=== PATIENT | male | born 1960 | race Caucasian/White ===

== ENCOUNTER 2023-03-17 09:56 | Emergency (ER) | payer OTHER, SELFPAY ==
--- NOTE | ~2023-03-17 | US_ITS ---
EXAMINATION:US venous doppler LE BI INDICATION:Leg edema TECHNIQUE: Multiple grayscale, color flow and Doppler images of the lower extremity deep venous syste ms were obtained and reviewed. COMPARISON:No prior FINDINGS: The common femoral, superficial femoral and popliteal veins demonstrate normal respiratory variation, augmentation and compressibility. Color flow is also seen within the posterior tibial, pe roneal, greater saphenous and profunda veins. IMPRESSION: 1: No lower extremity deep venous thrombosis. Reviewed, dictated and finalized at location A.
[2023-03-17 10:01] VITALS: BP 148/97; PULSE 77; RESP 18; TEMP 36.4; O2SAT 93
--- NOTE | 2023-03-17 10:19 | ED.SKABFB ---
HPI - Skin/Abscess/Foreign Bdy General Chief complaint: Skin/Abscess/Foreign Body Stated complaint: skin infection Time Seen by Provider: 03/17/23 09:59 Source: patient Mode of arrival: ambulatory Limitations: no limitations History of Present Illness HPI narrative: This is a 62 year old male that presents to the ER for lower extremity edema. Ongoing over the last couple of weeks. Reports he has been taking his as needed Lasix and this has been helping with the swelling, but he has a wound with surrounding redness on the right leg which is not improving. Denies fever, chest pain or shortness of breath. Related Data Allergies Allergy/AdvReac Type Severity Reaction Status Date / Time lidocaine Allergy Anaphylaxis Verified 03/17/23 10:11 amoxicillin AdvReac Diarrhea Verified 03/17/23 09:57 Review of Systems Review of Systems: CONSTITUTIONAL: Denies fever CARDIOVASCULAR: Reports edema. Denies chest pain RESPIRATORY: Denies dyspnea. SKIN: Reports redness All systems reviewed & are unremarkable except as noted in HPI and below PMFSH Past Medical History Medical History (Updated 03/17/23 @ 13:40 by Deann Crowley PA-C) History of atrial fibrillation History of COPD History of diabetes mellitus History of gastroesophageal reflux (GERD) Social History Social History (Updated 03/17/23 @ 10:23 by Deann Crowley PA-C) Smoking status: Never smoker Exam Narrative: GENERAL: Well-appearing, well-nourished, and in no acute distress. HEAD: Normocephalic, atraumatic. EYES: EOMI. CHEST: Clear to auscultation. No respiratory distress. No wheezes rales or rhonchi HEART: Regular rate and rhythm. No murmur heard. Normal peripheral pulses. EXTREMITIES: Normal range of motion. 1+ pitting edema to the bilateral lower extremities. Normal DP pulses. Small scab to the right lower extremity with mild surrounding redness SKIN: Warm, dry, no rash. NEURO: No focal deficits. Alert and oriented x3. PSYCH: Normal mood and affect Course Course Emergency Course: Patient was updated on work-up and agrees with plan of care Vital Signs Vital signs: Vital Signs Temperature 97.6 F 03/17/23 10:01 Pulse Rate 77 03/17/23 10:01 Respiratory Rate 18 03/17/23 10:01 Blood Pressure 148/97 H 03/17/23 10:01 Pulse Oximetry 93 03/17/23 10:01 Oxygen Delivery Room Air 03/17/23 10:01 Temperature 97.6 F 03/17/23 10:01 Pulse Rate 77 03/17/23 12:17 Respiratory Rate 18 03/17/23 12:17 Blood Pressure 127/90 03/17/23 12:17 Pulse Oximetry 97 03/17/23 12:17 Oxygen Delivery Nasal Cannula 03/17/23 10:39 Oxygen Flow Rate 4 03/17/23 10:39 MDM - Skin/Abscess/Foreign Bdy MDM Narrative Medical decision making narrative: Patient presents to the emergency department for lower extremity edema. Ongoing over the last couple of weeks. Reports he has been taking his as needed Lasix with improvement in swelling. Additionally he has an area of redness surrounding a wound to the right lower extremity. This has not improved. He is afebrile and nontoxic-appearing. CBC is without leukocytosis. Inflammatory markers are not elevated. Bilateral lower extremity venous Doppler without evidence of DVT. Patient chronically wears 4 L via nasal cannula, he denies any current shortness of breath. Patient will be started on oral antibiotics for mild cellulitis of the right lower extremity. He is to follow-up with primary provider. He was given warnings to return to the ER Differential Diagnosis Differential diagnosis: Likely abscess of skin or subcutaneous tissue and cellulitis Lab Data Attestation: I reviewed the patient's lab results. 03/17/23 10:32 03/17/23 10:32 Labs: Lab Results 03/17/23 03/17/23 Range/Units 10:32 13:32 WBC 5.6 (4.5-10.0) K/mm3 RBC 4.90 (4.6-6.20) M/mm3 Hgb 15.2 (14.0-18.0) g/dL Hct 49.2 (42.0-52.0) % MCV 100.4 H (80-100) fl MCH 31.0 (26
[2023-03-17 10:39] VITALS: O2SAT 98
[2023-03-17 10:40] LABS: Basophils Percent Auto 0.2 % (0.2-1.2); Eosinophils Absolute Auto 0.1 K/mm3 (0-0.3); Eosinophils Percent Auto 2.5 % (0-4.4); Hematocrit 49.2 % (42.0-52.0); Hemoglobin 15.2 g/dL (14.0-18.0); Immature Granulocyte Absolute 0.01 K/mm3 (0.00-0.031); Immature Granulocyte Percent A 0.2 % (0-0.5); Immature Platelet Fraction Pct 10.3 % (0.9-11.2); Lymphocytes Absolute Auto 1.76 K/mm3 (0.9-3.2); Lymphocytes Percent Auto 31.3 % (18.3-44.2); Mean Corpuscular HGB Conc 30.9 g/dl (32-36); Mean Corpuscular Volume 100.4 fl (80-100); Mean Platelet Volume 11.3 fl (7.4-10.4); Monocytes Absolute Auto 0.6 K/mm3 (0.1-0.6); Neutrophils Absolute Auto 3.1 K/mm3 (1.3-6.7); Neutrophils Percent Auto 54.8 % (45.5-73.1); Platelet Count Result 120 k/mm3 (150-375); Red Cell Distribution Width 13.6 % (11.5-14.5); White Blood Count 5.6 K/mm3 (4.5-10.0)
[2023-03-17 10:50] LABS: Anion Gap 4 mmol/L (8-16); Blood Urea Nitrogen 22 mg/dL (9-20); CRP 0.5 mg/dL (<1.0); Calcium 8.7 mg/dL (8.4-10.2); Carbon Dioxide 34 mmol/L (22-30); Chloride 104 mmol/L (98-107); Estimated CRCL calculation 175 ml/min; Estimated Glomerular Filt Rate > 60; Glucose 107 mg/dL (65-110); Sodium 142 mmol/L (137-145)
[2023-03-17 12:06] LABS: Erythrocyte Sedimentation Rate 7 mm/hr (0-20)
[2023-03-17 12:17] VITALS: BP 127/90; PULSE 77; RESP 18; O2SAT 97
[2023-03-17 13:34] LABS: Glucose Point of Care 106 mg/dl (65-105)
[2023-03-17 13:51] VITALS: BP 151/117; PULSE 82; RESP 18; O2SAT 98
== END 2023-03-17 13:53 | disposition home or self-care (01) ==
PROVIDERS: Emergency Provider Physician Assistant
DX: L03.115 Cellulitis of right lower limb (principal); I48.91 Unspecified atrial fibrillation; J44.9 Chronic obstructive pulmonary disease, unspecified; E11.9 Type 2 diabetes mellitus without complications; K21.9 Gastro-esophageal reflux disease without esophagitis
CPT/HCPCS: 36415; 80048; 82948; 85025; 85055; 85652; 86140; 93970; 99284

== ENCOUNTER 2023-11-12 07:46 | Outpatient (CLI) | payer MEDICARE, MEDICAID, SELFPAY ==
[2023-11-12 08:38] LABS: Alveolar/Arterial O2 Gradient 14.9 mmHg; Base Excess ABG 3.6 mEq/l (+/-2.0); Carboxyhemoglobin 1.7 % THb (0-2.0); Fractional Inspired Oxygen 21 %; HCO3 ABG 29.5 mEq/l (22.0-26.0); Methemoglobin ABG 0.3 %THb (0-1.5); Oxygen Content ABG 21.4 %vol (16.0-22.0); Oxygen Saturation ABG 95.1 % (95.0-100.0); Oxyhemoglobin 93.6 % THb (90.0-100.0); PCO2 ABG 48.9 mmHg (35.0-45.0); PO2 ABG 76.3 mmHg (80.0-100.0); PO2 FiO2 Ratio Arterial Blood 3.63 %; Reduced Hemoglobin 4.4 %THb (0-5.0); Total Hemoglobin 16.3 g/dL (12.0-18.0); pH ABG 7.398 (7.350-7.450)
[2023-11-12 08:42] LABS: Device ROOM AIR; Site Drawn RIGHT BRACHIAL
--- NOTE | 2023-11-12 12:44 | WPDSIXMINUTE ---
Six Minute Walk Procedure Procedure Performed Pulmonary Stress Test (6 min walk) Six Minute Walk Six Minute Walk: This 6 minute walk test was carried out with the patient breathing ambient air. The pre walk baseline oxyhemoglobin saturation was 93%. The patient walked 183 m with no stops during testing. During the walk the oxyhemoglobin saturation remained in the range of 91% to 93%. Impression: No evidence of oxyhemoglobin desaturation on this test.
--- NOTE | 2023-11-12 12:49 | P.PCNPFT_ITS ---
PFT Procedure Performed PFT Procedure Performed Spirometry with Pre/Post Bronchodilator Plethysmography (Lung Vol) Diffusing Cap (DLCO) Flow Vol Loop PFT Interpretation Lung volumes were measured using body plethysmography. The uniformly reduced lung volumes suggest restrictive respiratory disease. Spirometry revealed decreased expiratory flow rates and a normal FEV1/FVC ratio of 74%, consistent with restrictive respiratory disease. Administration of a bronchodilator did not significantly improve expiratory flow rates. The flow-volume loop likely indicates suboptimal effort, with a plateau on the expiratory limb suggesting possible upper airway obstruction. However, this expiratory plateau was not cons istently observed in all recorded flow-volume loops. Lung diffusion capacity is within normal limits at 67% of the predicted value. Impression: Moderate restrictive respiratory disease. Lung diffusion capacity is within the normal range. L
== END 2023-11-12 07:47 | disposition home or self-care (01) ==
LOC: ANHPFT 07:49
PROVIDERS: PCP Family Medicine; Visit Provider Nurse Practitioner Family
DX: J44.9 Chronic obstructive pulmonary disease, unspecified (principal); R09.02 Hypoxemia; R06.09 Other forms of dyspnea
CPT/HCPCS: 36600; 82375; 82805; 83050; 94060; 94618; 94726; 94729

== ENCOUNTER 2023-11-19 09:16 | Outpatient (CLI) | payer MEDICARE, MEDICAID, SELFPAY ==
[2023-11-19 10:43] LABS: Hemoglobin A1C 5.3 % (<5.7)
[2023-11-19 10:48] LABS: Alanine Aminotransferase 21 U/L (6-50); Albumin Level 4.2 g/dL (3.5-5.1); Alkaline Phosphatase 74 U/L (38-126); Anion Gap 4 mmol/L (4-12); Aspartate Amino Transferase 34 U/L (17-59); Bilirubin,Total 0.9 mg/dL (0.2-1.3); Blood Urea Nitrogen 32 mg/dL (9-20); Calcium 9.2 mg/dL (8.4-10.2); Carbon Dioxide 33 mmol/L (22-30); Chloride 103 mmol/L (98-107); Cholesterol 176 mg/dL (0-200); Estimated Glomerular Filt Rate > 60; Glucose 81 mg/dL (65-110); HDL Direct 36 mg/dL; Potassium 4.6 mmol/L (3.4-5.0); Sodium 140 mmol/L (137-145); Triglycerides 100 mg/dL (<150)
[2023-11-19 10:59] LABS: LDL Cholesterol Direct 128 mg/dL
== END 2023-11-19 09:17 | disposition home or self-care (01) ==
LOC: ANHLAB 09:19
PROVIDERS: PCP Family Medicine; Visit Provider Physician Assistant Medical
DX: E78.2 Mixed hyperlipidemia (principal); R73.03 Prediabetes
CPT/HCPCS: 36415; 80053; 80061; 83036

== ENCOUNTER 2023-11-20 12:08 | Outpatient (CLI) | payer MEDICARE, MEDICAID, SELFPAY ==
--- NOTE | 2023-11-20 12:23 | ECHO_ITS ---
Patient Info Name: Mann Choudhury Age: 63 years : 1960 Gender: Male Ht: 72 in Wt: 290 lbs BSA: 2.64 m2 HR: 88 bpm BP: 112 / 79 mmHg Heart Rhythm: Atrial Fibrillation Technical Quality: Fair Exam Date: 11/20/2023 12:32 PM Exam Location: Echo Lab Patient Status: Outpatient Admit Date: 11/20/2023 Staff Ordering Physician: Mario Muro APRN Pick Up Attendant: Delvin Portillo RDCS Attending Provider: Mario Muro APRN Referring Physician: Bhaskar STEPHENS; Exam Type: CA echo dop color flow w con Study Info Indications R06.09 - Other forms of dyspnea I27.2 - Other secondary pulmonary hypertension Complete two-dimensional, color flow and Doppler transthoracic echocardiogram is performed with contrast to opacify the left ventricle and to improve the deliniation of the left ventricle endocardial borders. Contrast/Agitated Saline Contrast/Ag. Saline: Definity Amount: 2.00 ml IV Access Condition: patent with no signs of infiltration Summary 1. Definity contrast administered improved wall motion interpretation. 2. Left ventricular chamber dimension is normal. 3. Left ventricular systolic function is normal, estimated at 60-65%. 4. The left ventricular diastolic function is normal. 5. Tissue doppler E/e' is not calculated. 6. Left atrial chamber dimension is mildly enlarged. 7. Right atrial chamber dimension is mildly enlarged. 8. There is mild mitral valve regurgitation. 9. There is mild tricuspid valve regurgitation. 10. No pulmonary hypertension, estimated pulmonary arterial systolic pressure is 36 mmHg. Left Ventricle Definity contrast administered improved wall motion interpretation. Tissue doppler E/e' is not calculated. Left ventricular chamber dimension is normal. Left ventricular systolic function is normal, estimated at 60-65%. The left ventricular diastolic function is normal. Right Ventricle Right ventricular chamber dimension is normal. Right ventricular systolic function is normal. Left Atria Left atrial chamber dimension is mildly enlarged. Right Atria Right atrial chamber dimension is mildly enlarged. Aortic Valve The aortic valve is trileaflet. There is no aortic valve stenosis. There is no aortic valve regurgitation. Pulmonic Valve There is no pulmonic regurgitation. Mitral Valve There is no mitral valve stenosis. There is mild mitral valve regurgitation. Tricuspid Valve There is mild tricuspid valve regurgitation. No pulmonary hypertension, estimated pulmonary arterial systolic pressure is 36 mmHg. Pericardium/Pleural There is no pericardial effusion. Inferior Vena Cava Normal inferior vena cava with >50% collapse upon inspiration consistent with normal right atrial pressure, 5 mmHg. Aorta The aortic root size at the sinus of Valsalva is normal. Left Ventricular Outflow Tract Name Value Normal LVOT 2D LVOT Diameter 2.02 cm LVOT Doppler LVOT Peak Gradient 3 mmHg LVOT Mean Gradient 1 mmHg LVOT VTI 14.45 cm LVOT VTI/AV VTI Ratio 0.87 LVOT Stroke Volume 46.46 ml LV
[2023-11-20] MEDS: PERFLUTREN LIPID MICROSPHERES 1.5 ML VIAL DILUTED TO 10 ML TOTAL VOLUME IV PUSH (13:35)
--- NOTE | 2023-11-20 13:56 | IVDEFINITY ---
Prior to administration of IV Definity the patient was educated on the risks and benefits of the imaging enhancing agent including potential adverse side effects. The patient verbalized understanding. Allergies were verified. No exclusion criteria were identified and at least one of the following inclusion criteria were met: 1) physician request, 2) patient technically difficult to image (per the [place] [employer] Echocardi[employer] guidelines of two or more segments not discernable within the apical view), or 3) questionable left ventricular function. ?
== END 2023-11-20 12:09 | disposition home or self-care (01) ==
LOC: ANHCARD 12:10
PROVIDERS: PCP Family Medicine; Visit Provider Nurse Practitioner Family
DX: I27.29 Other secondary pulmonary hypertension (principal); R06.09 Other forms of dyspnea; I34.0 Nonrheumatic mitral (valve) insufficiency; I36.1 Nonrheumatic tricuspid (valve) insufficiency
CPT/HCPCS: C8929; Q9957

== ENCOUNTER 2023-12-17 15:26 | Outpatient (CLI) | payer MEDICARE, MEDICAID, SELFPAY ==
--- NOTE | ~2023-12-17 | CT_ITS ---
EXAMINATION: CT abdomen pelvis wo con DATE: 12/17/2023 15:50 INDICATION: Ventral hernia TECHNIQUE: Computed tomography (CT) of the abdomen and pelvis was performed without intravenous contr ast. The dose-length product was 1522.99 mGy-cm. Automated exposure control and iterative reconstruct ion technique were employed. COMPARISON: None. FINDINGS: There is bibasilar atelectasis. Heart size normal. No significant pleural or pericardial ef fusion. There are calcified granulomas of the liver and spleen. There is a 3 mm nonobstructing left r enal stone. There is a [place] ventral hernia containing nonobstructed colon. This hernia is locate d superior to the umbilicus slightly paracentral to the left. Nonobstructive bowel gas pattern. Colon ic diverticulosis without evidence for diverticulitis. No abnormal pelvic masses or fluid collections . Severe lower thoracic and lumbar spondylosis. There is grade 1 spondylolisthesis at L5-S1 secondary to spondylolysis. IMPRESSION: 1. [place] supraumbilical ventral hernia containing nonobstructed colon. 2: Nonobstructing left nephrolithiasis. Reviewed, dictated and finalized at location B.
== END 2023-12-17 15:27 | disposition home or self-care (01) ==
LOC: ANHIMG 15:29
PROVIDERS: PCP Physician Assistant Medical; Visit Provider Surgery
DX: K43.6 Other and unspecified ventral hernia with obstruction, without gangrene (principal); N20.0 Calculus of kidney
CPT/HCPCS: 74176

== ENCOUNTER 2024-01-19 10:48 | Emergency (ER) | payer MEDICARE, MEDICAID, SELFPAY ==
[2024-01-19] VITALS (21 sets, daily range): BP systolic 113–133; BP diastolic 74–104; PULSE 68; RESP 18; TEMP 36.5–37.1; O2SAT 92–98
--- NOTE | ~2024-01-19 | CT_ITS ---
EXAMINATION: CT abdomen pelvis wo con DATE: 01/19/2024 14:03 INDICATION: R flank pain; hx of stones TECHNIQUE: Computed tomography (CT) of the abdomen and pelvis was performed without intravenous contr ast. Automated exposure control and iterative reconstruction technique were employed. The dose-length product was 1542.99 mGy-cm. COMPARISON: 12/17/2023. FINDINGS: Lower thorax: Calcified right lower lobe granuloma. Coronary artery calcification. Minimal dependent atelectasis. Right hilar lymph node calcification. Minimal symmetric bilateral gynecomastia. Liver: Normal. Biliary/Gallbladder: Gallbladder is normal. No bile duct dilation. Pancreas: No mass or duct dilation. Spleen: Normal. Adrenals:Unremarkable. No suspicious mass. 7 mm left adrenal calcification. Kidneys: No suspicious mass, obstructing stone, or hydronephrosis nonobstructing 4 mm left lower pole calcification. Stable 12 mm calcification in the left lower abdomen projecting immediately adjacent to and displacing the nondistended left ureter. GI tract: No small or large bowel dilation. Appendix not confidently visualized. Diverticulosis witho ut diverticulitis. Mesentery/Peritoneum: No ascites, mass, or free air. Retroperitoneum: No mass. Atherosclerotic abdominal aortic and/or arterial calcifications. Pelvis: Incompletely distended urinary bladder with wall thickening. Soft Tissues: 10.6 cm supraumbilical hernia containing fat and a nonobstructed loop of large bowel. S mall uncomplicated appearing fat-containing umbilical hernia. Bones: No acute osseous finding. IMPRESSION: Cystitis versus bladder wall thickening from incomplete distention. Otherwise, no acute abdominopelvic process detected. Reviewed, dictated and finalized at location K.
--- NOTE | 2024-01-19 13:02 | ED.BACK ---
HPI - Back Pain/Injury General Chief Complaint: Back Pain/Injury Stated Complaint: back pain Time Seen by Provider: 01/19/24 12:47 History of Present Illness HPI Narrative: 63-year-old male with a history of hypertension, paroxysmal AFib on digoxin and Xarelto presenting with back pain. Patient states that he has a lot of chronic back pain but lately he has been having pain off to the right side. He denies any midline pain. States that he had kidney stones many years ago and became concerned that that may be because of the pain. Denies abdominal pain, nausea vomiting, diarrhea. No dysuria or hematuria. States he has been using ibuprofen with minimal relief. No fevers. No further complaints. Related Data Home Medications Medication Instructions Recorded Confirmed budesonide-formoterol HFA 160 2 puff inhalation Q12H 09/10/23 01/07/24 mcg-4.5 mcg/actuation aerosol inhaler (Breyna) carvedilol 6.25 mg tablet 6.25 mg PO BID 09/10/23 01/07/24 digoxin 250 mcg (0.25 mg) tablet 250 mcg PO DAILY 09/10/23 01/07/24 gabapentin 800 mg tablet 800 mg PO BID 09/10/23 01/07/24 ibuprofen 800 mg tablet 800 mg PO ONCE PRN 09/10/23 01/07/24 pioglitazone 45 mg tablet 45 mg PO DAILY 09/10/23 01/07/24 Allergies Allergy/AdvReac Type Severity Reaction Status Date / Time lidocaine Allergy Anaphylaxis Verified 01/07/24 15:39 amoxicillin AdvReac Diarrhea Verified 01/07/24 15:39 Review of Systems Review of Systems: All systems reviewed & are unremarkable except as noted in HPI and below PMFSH Past Medical History Medical History Allergies Anxiety Arthritis Asthma CHF (congestive heart failure) COPD (chronic obstructive pulmonary disease) Diabetes GERD (gastroesophageal reflux disease) Headache Heart attack Heart disease History of atrial fibrillation History of COPD History of diabetes mellitus History of gastroesophageal reflux (GERD) Hypertension Kidney disease Migraine Family History Family History Father Alcoholism Heart disease Hypertension Mother Heart disease Asthma Sibling Alcoholism Asthma Diabetes mellitus Hypertension Heart disease Cerebrovascular accident Thyroid disorder Grandparent Asthma Hypertension Heart disease Son Alcoholism Asthma Hypertension Social History Social History Smoking status: Never smoker Second hand tobacco smoke exposure: No Alcohol intake: never Substance use: never Substance use type: does not use Do You Feel Safe in your Home?: Yes Lack of Transportation: No Lack of Food: Never True Current Housing: Decline to Answer Concerned About Future Housing: Decline to Answer Difficulty Paying Gas/Electric Bills: No Difficulty Paying for Meds: No Currently Unemployed: No Education: High School Diploma/GED Difficulty w/ Childcare or Family Care: No Living arrangements: alone Occupation/Education: retired Sexual Orientation (if Verbalized by the Patient): Straight or Heterosexual Spiritual care concerns: No Agree to blood products: No Exam Narrative: GENERAL: Well-appearing, in no acute distress HEAD: Normocephalic, atraumatic. EYES: PERRLA and EOMI. ENT: Grossly unremarkable NECK: Supple. CHEST: Clear to auscultation. No respiratory distress. HEART: Regular rate and rhythm ABDOMEN: Soft, nontender, nondistended; + right CVA tenderness BACK: no midline tenderness EXTREMITIES: Normal range of motion SKIN: Warm, dry, no rash. NEURO: No focal deficits. Alert and oriented x3. PSYCH: Normal mood and affect. Course Vital Signs Vital signs: Vital Signs Temperature 97.7 F 01/19/24 12:06 Pulse Rate 68 01/19/24 12:06 Respiratory Rate 18 01/19/24 12:06 Blood Pressure 122/81 01/19/24 12:06 Pulse Oximetry 98 01/19/24 12:
[2024-01-19] MEDS: HYDROcodone/acetaminophen (*CRX) 5-325 MG TABLET 1 TAB PO (13:21)
[2024-01-19 13:25] LABS: Basophils Percent Auto 0.1 % (0.2-1.2); Eosinophils Absolute Auto 0.1 K/mm3 (0-0.3); Eosinophils Percent Auto 1.9 % (0-4.4); Hematocrit 47.8 % (42.0-52.0); Hemoglobin 15.7 g/dL (14.0-18.0); Immature Granulocyte Absolute 0.03 K/mm3 (0.00-0.031); Immature Granulocyte Percent A 0.4 % (0-0.5); Immature Platelet Fraction Pct 9.3 % (0.9-11.2); Lymphocytes Absolute Auto 2.29 K/mm3 (0.9-3.2); Lymphocytes Percent Auto 32.7 % (18.3-44.2); Mean Corpuscular HGB Conc 32.8 g/dl (32-36); Mean Corpuscular Hemoglobin 32.4 pg (26-34); Mean Corpuscular Volume 98.6 fl (80-100); Mean Platelet Volume 11.4 fl (7.4-10.4); Monocytes Absolute Auto 0.9 K/mm3 (0.1-0.6); Monocytes Percent Auto 12.3 % (2.6-8.5); Neutrophils Absolute Auto 3.7 K/mm3 (1.3-6.7); Neutrophils Percent Auto 52.6 % (45.5-73.1); Platelet Count Result 123 k/mm3 (150-375); Red Blood Count 4.85 M/mm3 (4.6-6.20); Red Cell Distribution Width 13.1 % (11.5-14.5)
[2024-01-19 13:35] LABS: Alanine Aminotransferase 21 U/L (6-50); Alkaline Phosphatase 75 U/L (38-126); Anion Gap 5 mmol/L (4-12); Aspartate Amino Transferase 28 U/L (17-59); Bilirubin,Total 0.9 mg/dL (0.2-1.3); Blood Urea Nitrogen 35 mg/dL (9-20); Calcium 8.9 mg/dL (8.4-10.2); Carbon Dioxide 34 mmol/L (22-30); Chloride 99 mmol/L (98-107); Estimated Glomerular Filt Rate > 60; Glucose 89 mg/dL (65-110); Lipase 39 U/L (23-300); Potassium 4.8 mmol/L (3.4-5.0); Sodium 138 mmol/L (137-145)
[2024-01-19 13:38] LABS: Add Urine Microscopic? NO; Appearance Urine Clear (Clear); Bilirubin Urine Negative (Negative); Blood Urine Negative (Negative); Color Urine Yellow (Yellow); Glucose Urine UA 2+ mg/dL (Negative); Ketones Urine Negative (Negative); Leukocyte Esterase Ur Negative LEU/UL (Negative); Nitrate Urine Negative (Negative); Protein Urine Negative (Negative); Specific Grav Ur 1.036 (1.001-1.035)
== END 2024-01-19 16:30 | disposition home or self-care (01) ==
PROVIDERS: Emergency Provider Emergency Medicine; PCP Physician Assistant Medical
DX: M54.50 Low back pain, unspecified (principal); G89.29 Other chronic pain; I48.0 Paroxysmal atrial fibrillation; I50.9 Heart failure, unspecified; I11.0 Hypertensive heart disease with heart failure; I25.2 Old myocardial infarction; J44.9 Chronic obstructive pulmonary disease, unspecified; E11.9 Type 2 diabetes mellitus without complications; K21.9 Gastro-esophageal reflux disease without esophagitis; N28.9 Disorder of kidney and ureter, unspecified; Z87.442 Personal history of urinary calculi; Z79.01 Long term (current) use of anticoagulants; Z79.84 Long term (current) use of oral hypoglycemic drugs; Z79.899 Other long term (current) drug therapy
CPT/HCPCS: 36415; 74176; 80053; 81003; 83690; 85025; 85055; 99284; A9270

== ENCOUNTER 2024-01-22 12:38 | Outpatient (CLI) | payer MEDICARE, MEDICAID, SELFPAY | END 2024-01-22 12:39 | disposition home or self-care (01) | LOC: ANHAUDIO 12:39 | PROVIDERS: PCP Family Medicine; Visit Provider Otolaryngology | DX: H90.6 Mixed conductive and sensorineural hearing loss, bilateral (principal); H93.19 Tinnitus, unspecified ear; H61.23 Impacted cerumen, bilateral; J30.2 Other seasonal allergic rhinitis | CPT/HCPCS: 92557; 92567 ==

== ENCOUNTER 2024-02-12 09:41 | Outpatient (CLI) | payer MEDICARE, MEDICAID, SELFPAY ==
--- NOTE | ~2024-02-12 | NM_ITS ---
EXAMINATION: NM ankush stress w perfusion DATE: 02/12/2024 12:13 INDICATION: Other forms of dyspnea TECHNIQUE: Rest images were obtained following intravenous administration of 9.0 mCi Tc99m tetrofosmi n (Myoview). The patient was infused intravenously with Lexiscan (Regadenoson). Then, 28.6 mCi Tc99m tetrofosmin (Myoview) was administered intravenously, and stress images were obtained. Data was recon structed into short axis and horizontal and vertical long axis SPECT images. Gated SPECT images were also obtained. COMPARISON: None. FINDINGS: There is a moderate-sized mild reversible perfusion defect on the stress imaging involving the apical, apical lateral, apical anterior, mid anterior and mid anterolateral segments consistent w ith ischemia. The activity however appears to largely normalizes on the gated stress imaging during s ystole suggesting this could be artifactual. Prone imaging however was unable to be obtained. There i s additional mild reversible decreased perfusion at the apical inferior and mid inferior segments and more prominent on the gated been the gated post stress imaging. There is normal left ventricular liliana mber size, wall motion and ejection fraction. Left ventricular ejection fraction measures >70%. IMPRESSION: 1. Mild reversible perfusion defects which would be consistent with ischemia involving portions of th e anterior and anterolateral wall on the left anterior descending coronary artery vascular distributi on and along the inferior wall in the right coronary artery vascular distribution. These appear more prominent on the ungated post stress imaging than on the gated imaging particularly during systole augustin ggesting this could be artifactual. 2. Left ventricular ejection fraction measuring >70%. Reviewed, dictated and finalized at location B. IMPRESSION: 1. Mild reversible perfusion defects which would be consistent with ischemia in volving portions of the anterior and anterolateral wall on the left anterior de scending coronary artery vascular distribution and along the inferior wall in t he right coronary artery vascular distribution. These appear more prominent on the ungated post stress imaging than on the gated imaging particularly during s ystole suggesting this could be artifactual. 2. Left ventricular ejection fraction measuring >70%.
--- NOTE | 2024-02-12 09:51 | EST_ITS ---
Patient Info Name: Mann Choudhury Age: 63 years : 1960 Gender: Male Ht: 72 in Wt: 289 lbs BSA: 2.63 m2 HR: 76 bpm BP: 107 / 80 mmHg Exam Date: 02/12/2024 10:42 AM Exam Location: Echo Lab Patient Status: Outpatient Admit Date: 02/12/2024 Staff Ordering Physician: Bry Estrada DO Attending Provider: Bry Estrada DO Exercise Technologist: Jacquie Gandhi RDCS Exercise Physician: Bry Estrada DO Exam Type: CA stress ankush w NM Study Info A regadenoson stress test was performed. Summary 1. 1. Negative lexiscan stress test for ischemic ST changes by ECG criteria. 2. 2. Stable hemodynamics throughout the test. 3. 3. Nuclear scan to follow and will be reported separately. Please correlate with it. 4. 4. Patient informed of the above results. Protocol: Lexiscan Stress ECG Details Stage: REST Duration (min): 4 min : 28 sec HR (bpm): 76 SBP (mmHg): 107 DBP (mmHg): 80 Stage: REST Duration (min): 9 min : 59 sec HR (bpm): 79 SBP (mmHg): 107 DBP (mmHg): 80 Stage: STAGE 1 Duration (min): 1 min : 0 sec HR (bpm): 77 SBP (mmHg): 122 DBP (mmHg): 82 Stage: RECOVERY Duration (min): 1 min : 0 sec HR (bpm): 81 SBP (mmHg): 122 DBP (mmHg): 82 Stage: RECOVERY Duration (min): 2 min : 0 sec HR (bpm): 82 SBP (mmHg): 122 DBP (mmHg): 82 Stage: RECOVERY Duration (min): 3 min : 0 sec HR (bpm): 83 SBP (mmHg): 127 DBP (mmHg): 79 Stage: RECOVERY Duration (min): 3 min : 6 sec HR (bpm): 82 SBP (mmHg): 127 DBP (mmHg): 79 Rest HR: 79 bpm Peak HR: 86 bpm Rest Sys BP: 107 mmHg Peak Sys BP: 127 mmHg Max Pred HR: 155 bpm % Max Pred HR: 55 % Target HR: 132 bpm Max RPP: 10,922 bpm*mmHg Termination Reason: Completed protocol Cardiac Symptoms: Shortness of breath, Nausea Total Time: 1 min : 0 sec Rest Coto BP: 80 mmHg Peak [place] BP: 79 mmHg Total Dose: 0.4 mg Resting ECG Atrial fibrillation, RBBB. Stress ECG No ST changes. Arrhythmias None. Report Signatures
== END 2024-02-12 09:42 | disposition home or self-care (01) ==
LOC: ANHCARD 09:42
PROVIDERS: PCP Family Medicine; Visit Provider Internal Medicine Cardiovascular Disease
DX: R06.09 Other forms of dyspnea (principal); R94.39 Abnormal result of other cardiovascular function study
CPT/HCPCS: 78452; 93017; A9502; J2785

== ENCOUNTER 2024-05-10 13:46 | Outpatient (CLI) | payer MEDICARE, MEDICAID, SELFPAY ==
--- NOTE | ~2024-05-10 | XR_ITS ---
EXAM: XR lumbar spine 2-3V DATE: 05/10/2024 15:05 HISTORY: KNOWN L5 DISPLACEMENT, ISSUES FOR 10+YRS . COMPARISON: 11/23/2015. FINDINGS: 5 nonrib-bearing lumbar-type vertebral bodies. 9 mm anterolisthesis at L5-S1. 6 mm retroli sthesis at L2-3. 2 mm retrolisthesis at L3-4 and L4-5. Stable mild multilevel vertebral body height l oss at the thoracolumbar junction. Multilevel moderate disc space narrowing and osteophytosis, includ ing large bridging anterior osteophytes at the thoracolumbar junction and upper lumbar spine. Atheros clerotic aortic calcification, diameter measuring up to 3.1 cm. Severe facet hypertrophy and sclerosi s in the lower lumbar spine with interspinous narrowing. Likely bilateral pars defects at L5-S1. Stab le calcification in the right upper quadrant IMPRESSION: Multilevel grade 1 listheses, most pronounced at L5-S1 where there are likely bilateral pars defects. Multilevel moderate degenerative disc disease. Multilevel severe facet arthropathy. 3.1 cm fusiform abdominal aortic aneurysm, consider ultrasound of the aorta to establish baseline for future surveillance. Reviewed, dictated and finalized at location K. ATTENDANT IMPRESSION: Multilevel grade 1 listheses, most pronounced at L5-S1 where there are likely b ilateral pars defects. Multilevel moderate degenerative disc disease. Multileve l severe facet arthropathy. 3.1 cm fusiform abdominal aortic aneurysm, consider ultrasound of the aorta to establish baseline for future surveillance.
[2024-05-10 14:10] LABS: Basophils Percent Auto 0.2 % (0.2-1.2); Eosinophils Absolute Auto 0.1 K/mm3 (0-0.3); Eosinophils Percent Auto 1.8 % (0-4.4); Hematocrit 45.2 % (42.0-52.0); Hemoglobin 14.9 g/dL (14.0-18.0); Immature Granulocyte Absolute 0.02 K/mm3 (0.00-0.031); Immature Granulocyte Percent A 0.3 % (0-0.5); Immature Platelet Fraction Pct 8.7 % (0.9-11.2); Lymphocytes Absolute Auto 2.62 K/mm3 (0.9-3.2); Lymphocytes Percent Auto 39.6 % (18.3-44.2); Mean Corpuscular Hemoglobin 32.5 pg (26-34); Mean Corpuscular Volume 98.5 fl (80-100); Mean Platelet Volume 11.3 fl (7.4-10.4); Monocytes Absolute Auto 0.7 K/mm3 (0.1-0.6); Monocytes Percent Auto 10.3 % (2.6-8.5); Neutrophils Absolute Auto 3.2 K/mm3 (1.3-6.7); Neutrophils Percent Auto 47.8 % (45.5-73.1); Platelet Count Result 134 k/mm3 (150-375); Red Blood Count 4.59 M/mm3 (4.6-6.20); Red Cell Distribution Width 13.2 % (11.5-14.5); White Blood Count 6.6 K/mm3 (4.5-10.0)
[2024-05-10 14:19] LABS: Alanine Aminotransferase 29 U/L (6-50); Albumin Level 4.3 g/dL (3.5-5.1); Alkaline Phosphatase 81 U/L (38-126); Anion Gap 4 mmol/L (4-12); Aspartate Amino Transferase 40 U/L (17-59); Bilirubin,Total 1.1 mg/dL (0.2-1.3); Blood Urea Nitrogen 29 mg/dL (9-20); Calcium 9.4 mg/dL (8.4-10.2); Carbon Dioxide 34 mmol/L (22-30); Chloride 104 mmol/L (98-107); Cholesterol 215 mg/dL (0-200); Estimated Glomerular Filt Rate > 60; Glucose 88 mg/dL (65-110); HDL Direct 39 mg/dL; Potassium 4.8 mmol/L (3.4-5.0); Sodium 142 mmol/L (137-145); Triglycerides 100 mg/dL (<150)
[2024-05-10 14:26] LABS: Hemoglobin A1C 5.7 % (<5.7)
[2024-05-10 14:30] LABS: LDL Cholesterol Direct 135 mg/dL
[2024-05-10 14:38] LABS: Creatinine Urine 96.5 mg/dL
[2024-05-10 14:43] LABS: MALB Creatinine Ratio 11.5 mg/g (0-30); Microalbumin Urine Random 11.1 mg/L (0-16.7)
[2024-05-10 14:45] LABS: Free T4 Free Thyroxine 1.19 ng/dL (0.78-2.19)
[2024-05-10 15:00] LABS: Hepatitis B Surface Antigen Negative (Negative)
[2024-05-10 15:06] LABS: HAV RESULT Negative (Negative); Hepatitis B Core IgM Result Negative (Negative)
[2024-05-10 15:17] LABS: Hepatitis C Virus Antibody Negative (Negative)
--- OUTSIDE RECORDS SUMMARY | 2024-05-14 16:50 | XMS_ITS | Patient Health Summary ---
Author Organization [facility] Address [address] [facility] [place] [address] Care Team Providers Care Runner On Name Role Phone Vangie Valentine MD Primary Care Provider [phone] Note from [facility],non-owned Affiliates and Associated Physician Practices is amultiple site organization consisting of ambulatory clinics and hospital sitesin [place], [place], [place] and [place]. This disclosure is being madepursuant to the Care Everywhere program and may not contain all information available regarding this patient. Last updated 18.[facility] Allergies * Lidocaine(Swelling) -Medium Criticality Medications * Be aware that medications may not be up to date on this document. Alwaysverify current medications with the patient. * albuterol HFA (Proventil; Ventolin; Proair) 108 (90 Base) MCG/ACT inhaler (Started 09/25/2022) Inhale 2 (two) puffs by mouth every 4 hours as needed * Aspirin Low Dose 81 MG tablet(Started 07/07/2021) Take 1 (one) tablet by mouth once daily as directed. * Symbicort 160-4.5 MCG/ACT inhaler(Started 09/25/2022) Inhale 2 (two) puffs by mouth 2 times daily * carvedilol (Coreg) 6.25 MG tablet(Started 02/07/2023) Take 1 (one) tablet by mouth 2 times daily * cyclobenzaprine (Flexeril) 10 MG tablet(Started 09/25/2022) Take 1 (one) tablet by mouth 3 times daily * digoxin (Lanoxin) 0.25 MG tablet(Started 02/07/2023) Take 1 (one) tablet by mouth once daily * EPINEPHrine (Epipen) 0.3 MG/0.3ML auto-injector pen(Started 02/07/2023) INJECT 1 PEN IN THE MUSCLE ONE TIME DIRECTED * furosemide (Lasix) 40 MG tablet(Started 02/07/2023) Take 1 (one) tablet by mouth once daily as needed * gabapentin (Neurontin) 800 MG tablet(Started 03/20/2023) TAKE 2 TABLETS BY MOUTH TWICE DAILY DIRECTED * albuterol-ipratropium (Duo-Neb) 0.5-2.5 (3) MG/3ML nebulizer solution(Started 04/11/2023) * Magnesium Oxide -Mg Supplement 400 (240 Mg) MG(Started 04/11/2023) * metoprolol succinate XL 24hr (Toprol XL) 50 MG tablet(Started 01/05/2023) Take 1 (one) tablet by mouth once daily * potassium chloride ER 10 MEQ tablet(Started 03/29/2023) TAKE 2 TABLETS BY MOUTH EVERY DAY DIRECTED * pioglitazone (Actos) 30 MG tablet(Started 01/26/2023) TAKE 1 TABLET BY MOUTH EVERY DAY WITH A MEAL * ketoconazole (Nizoral) 2 % shampoo(Started 04/16/2023) Apply to wet hair, leave on for 3 minutes, then rinse; three times weekly. 30 days supply 2 refills by 04/15/2024 * triamcinolone acetonide (Kenalog) 0.1 % ointment(Started 04/16/2023) Apply to affected areas twice daily. 30 days supply. 2 refills by 04/15/2024 Active Problems Problem Noted Date Diagnosed Date Reducible bulge of abdominal wall 06/28/2023 Social History Tobacco Use Types Packs/Day Years Used Date Smoking Tobacco: Never Smokeless Tobacco: Never Tobacco Cessation:Counseling Given: Not Answered Alcohol Use Standard Drinks/Week Comments Never 0 (1 standard drink = 0.6 oz pur e alcohol) Sex and Gender Information Value Date Recorded Sex Assigned at Not on file Gender Identity Not on file Sexual Orientation Not on file Last Filed Vital Signs Vital Sign Reading Time Taken Comments Blood Pressure 135/97 06/28/2023 8:35 AM PEDIATRIC NEPHROLOGIST Pulse 90 06/28/2023 8:35 AM PEDIATRIC NEPHROLOGIST Temperature 36.6 ??C (97.9 ??F) 06/28/2023 8:35 AM CS T Respiratory Rate - - Oxygen Saturation - - Inhaled Oxygen Concentration - - Weight 135.2 kg (298 lb) 06/28/2023 8:35 AM PEDIATRIC NEPHROLOGIST Height 182.9 cm (6') 06/28/2023 8:35 AM PEDIATRIC NEPHROLOGIST Body Mass Index 40.42 06/28/2023 8:35 AM PEDIATRIC NEPHROLOGIST Care Teams Runner On Relationship Specialty Start Date End Date Vangie Valentine MD [address] [place] [phone] PCP - General 08/18/21
--- OUTSIDE RECORDS SUMMARY | 2024-05-14 16:50 | XMS_ITS | Clinical Summary ---
Author Organization [facility] Address [address] [place] [address]. [place], [place] [id number] [place] [id number] Care Team Providers Care Project Inspector Name Role Phone Davi Alyce Garcia Primary Care Provide r Allergies Active Allergy Reactions Criticality Noted Date Comments Lidocaine Angioedema,Swelling Medium 11/25/2021 Active Problems Problem Noted Date Diagnosed Date Reducible bulge of abdominal wall 06/28/2023 Fatigue 09/09/2019 Morbid obesity ([facility]) 09/09/2019 Non-seasonal allergic rhinitis due to pollen Obstructive sleep apnea 09/09/2019 Pulmonary hypertension ([facility]) 020 History of pneumonia 05/18/2016 Hypoxemia 05/18/2016 Shortness of breath 05/18/2016 Sleep disorder 05/18/2016 Resolved Problems Problem Noted Date Diagnosed Date Resolved Date Non-smoker 09/09/2019 11/26/2023 Social History Tobacco Use Types Packs/Day Years Used Date Smoking Tobacco: Never Assessed Sex and Gender Information Value Date Recorded Sex Assigned at Not on file Legal Sex Male 11:15 PM 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 ADVISOR Gender Identity Not on file Sexual Orientation Not on file Plan of Treatment Health Maintenance Due Date Last Done Comments Colorectal Cancer Screening Colonoscopy (10 Years) 1960 Hepatitis C 1976 DTaP, Tdap and Td Vaccines ( 1 - Tdap) 1977 Zoster Vaccines (1 of 2) 2008 RSV Immunization or 60+ Years (1 - 1-dose 60+ series) 2018 Pneumococcal Vaccine: 65+ Ye ars (1 of 1 - PCV) 08/18/2023 COVID-19 Vaccine (2023-2 5 season) 2024 Influenza Adult (#1) 2024 Meningococcal Vaccine Aged Out No pradip joe eligible based on patient's age to complete this topic Pneumococcal Vaccine: Pediat rics (0 to 5 Years) and At-Risk Patients (6 to 64 Years) Aged Out No longer eligible b ased on patient's age to complete this topic RSV Immunizations Under 20 Months Aged Out No longer eligible based on patient's age to [place] [id number] Care Teams Project Inspector Relationship Specialty Start Date End Date Davi Alyce Garcia PA [address] [place] [id number] PCP - General Physician Senior Research Associate Medical 09/10/23
--- OUTSIDE RECORDS SUMMARY | 2024-05-14 16:50 | XMS_ITS | Encounter Summary ---
Author Organization [facility] Address [address] [facility] [place] [address] Care Team Providers Care Manager Local Name Role Phone Vangie Valentine MD Primary Care Provider [phone] Reason for Visit * Reason Comments Establish Care Ventral hernia * Consult, Test & Treat (Routine) - Closed Specialty Diagnoses / Procedures Referred By Contac t Referred To Contact General Surgery Diagnoses Ventral hernia without obstruction or gangrene Vangie Valentine MD [address] [place] [phone] Referral ID Status Reason Start Date Expiration Date Visits Re quested Visits Authorized [id number] Closed 05/15/2023 05/14/2024 1 1 Encounter Details Date Type Department Care Team (Late st Contact Info) Description 06/28/2023 8:10 AM MOTION GRAPHICS DESIGNER Office Visit [facility] - General Surgery [address] [phone] Ximena Garcia MD [address] [place] [address] Reducible bulge of abdominal wall (Primary Dx) Social History Tobacco Use Types Packs/Day Years Used Date Smoking Tobacco: Never Smokeless Tobacco: Never Tobacco Cessation:Counseling Given: Not Answered Alcohol Use Standard Drinks/Week Comments Never 0 (1 standard drink = 0.6 oz pur e alcohol) Sex and Gender Information Value Date Recorded Sex Assigned at Not on file Gender Identity Not on file Sexual Orientation Not on file documented as of this encounter Last Filed Vital Signs Vital Sign Reading Time Taken Comments Blood Pressure 135/97 06/28/2023 8:35 AM MOTION GRAPHICS DESIGNER Pulse 90 06/28/2023 8:35 AM MOTION GRAPHICS DESIGNER Temperature 36.6 ??C (97.9 ??F) 06/28/2023 8:35 AM CS T Respiratory Rate - - Oxygen Saturation - - Inhaled Oxygen Concentration - - Weight 135.2 kg (298 lb) 06/28/2023 8:35 AM MOTION GRAPHICS DESIGNER Height 182.9 cm (6') 06/28/2023 8:35 AM MOTION GRAPHICS DESIGNER Body Mass Index 40.42 06/28/2023 8:35 AM MOTION GRAPHICS DESIGNER documented in this encounter Progress Notes * Ximena Garcia MD - 06/28/2023 8:42 AM CST Patient Name: Mann Choudhury : 1960 CC: possible ventral hernia Referring provider: Dr Valentine HISTORY OF PRESENT ILLNESS: Mann Choudhury is a 62 year old male who presents to clinic for surgical evaluation of a possible ventral hernia. He states he has a bulge that has been present for ~10 yrs. He feels a pulling sensationwhen lifting, although now is semi-retired so doesn't lift much. Denies N/V or change in bowel habits. Has cellulitis of pannus at times but denies skin changes at the area of bulging. Of note, on 4L oxygen always at night, but during the day sometimes. Reports baseline O2 is 91-93%. ALLERGIES: Allergies Allergen Reactions ??? Lidocaine Swelling PAST MEDICAL HISTORY: No past medical history on file. CHRISTINE COPD on oxygen pulm HTN DM CHF Afib HTN Neuropathy Recurrent L pneumonias Denies bleeding or clotting disorders Denies history of problems with anesthesia PAST SURGICAL HISTORY: No past surgical history on file. Appendectomy 1976 MEDICATIONS: Current Outpatient Medications Medication Sig Dispense Refill ??? albuterol HFA (Proventil; Ventolin; Proair) 108 (90 Base) MCG/ACT inhaler Inhale 2 (two) puffs by mouth every 4 hours as needed ??? albuterol-ipratropium (Duo-Neb) 0.5-2.5 (3) MG/3ML nebulizer solution (Patient not taking: Reported on 06/28/2023) ??? Aspirin Low Dose 81 MG tablet Take 1 (one) tablet by mouth once daily as directed. ??? carvedilol (Coreg) 6.25 MG tablet Take 1 (one) tablet by mouth 2 times daily ??? cyclobenzaprine (Flexeril) 10 MG tablet Take 1 (one) tablet by mouth 3 times daily (Patient nottaking: Reported on 06/28/2023) ??? digoxin (Lanoxin) 0.25 MG tablet Take 1 (one) tablet by mouth once daily ??? EPINEPHrine (Epipen) 0.3 MG/0.3ML auto-injector pen INJECT 1 PEN IN THE MUSCLE ONE TIME DIRECTED (Patient not taking: Reported on 06/28/2023) ??? furosemide (Lasix) 40 MG tablet Take 1 (one) tablet by mouth once daily as needed (Patient not taking: Reported on 06/28/2023) ??? gabapentin (Neurontin) 800 MG tablet TAKE 2 TABLETS BY MOUTH TWICE DAILY DIRECTED ??? ketoconazole (Nizoral) 2 % shampoo Apply to wet hair, leave on for 3 minutes, then rinse; threetimes weekly. 30 days supply 120 mL 2 ??? Magnesium Oxide -Mg Supplement 400 (240 Mg) MG ??? metoprolol succinate XL 24hr (Toprol XL) 50 MG tablet Take 1 (one) tablet by mouth once daily ??? pioglitazone (Actos) 30 MG tablet TAKE 1 TABLET BY MOUTH EVERY DAY WITH A MEAL (Patient not taking: Reported on 06/28/2023) ??? potassium chloride ER 10 MEQ tablet TAKE 2 TABLETS BY MOUTH EVERY DAY DIRECTED ??? Symbicort 160-4.5 MCG/ACT inhaler Inhale 2 (two) puffs by mouth 2 times daily ??? triamcinolone acetonide (Kenalog) 0.1 % ointment Apply to affected areas twice daily. 30 days supply. 454 g 2 FAMILY HISTORY: No family history on file. SOCIAL HISTORY: Social History Tobacco Use ??? Smoking status: Never ??? Smokeless tobacco: Never Vaping Use ??? Vaping Use: Never used Substance Use Topics ??? Alcohol use: Never ??? Drug use: Never REVIEW OF SYSTEMS - all negative; positive findings in bold Constitutional: fevers, chills, fatigue Eyes: blurry vision or sudden vision loss ENMT: hearing loss Cardiovascular: chest pain, palpitations, or dyspnea on exertion Respiratory: shortness of breath, cough GI: abdominal pain, nausea, diarrhea or constipation Musculoskeletal: arthritis, back pain Neurological: headaches or confusion Psychiatric: anxiety, depression : hematuria, dysuria PHYSICAL EXAM BP 135/97 Pulse 90 Temp 97.9 ??F (36.6 ??C) (Temporal) Ht 1.829 m (6') Wt 135.2 kg (298 lb) Body mass index is 40.42 kg/m??. General: alert, cooperative, in no distress Eyes: conjunctiva and lids normal, EOMI ENT/Mouth: neck supple, no visible oral lesions Respiratory: unlabored respirations CV: regular heart rate, no murmur, no carotid bruit Abd: soft, obese, non-tender, non-distended. Upper midline bulge ~6-7cm wide, symmetric, soft, reducible. RLQ scar. Musculoskeletal: warm with no deformities Extr: warm, well perfused Neuro: no focal deficits, normal gait Psych: normal mood and affect RADIOLOGY REVIEW: None available DIAGNOSIS: ventral hernia vs rectus diastasis ASSESSMENT & PLAN: I reviewed all available records including Care Everywhere. 62M with Multiple medical comorbidities including DM (last A1c 5.5 in Mar 2023), CHF, pulm HTN, Afib not on anticoag, and morbid obesity BMI 40 with concern for ventral hernia. No h/o incisions in that area. Could be primary umbilical although the bulge begins superior to umbilicus. Symmetric so may be diastasis although it is more rounded in appearance than I would expect with diastasis so will obtain CT abd/pelvis. Discussed that if diastasis is found w/o hernia, next step would be PT referral. If hernia found, then patient would need to lose 40lb to reach goal BMI 35 in order to reduce risk of surgical complications and recurrence. Ximena Garcia MD General Surgery [facility] ON GRAPHICS DESIGNER documented in this encounter Plan of Treatment Not on file documented as of this encounter Visit Diagnoses Diagnosis Reducible bulge of abdominal wall- Primary documented in this encounter Care Teams Manager Local Relationship Specialty Start Date End Date Vangie Valentine MD [address] [place] [phone] PCP - General 08/18/21 documented as of this encounter
--- OUTSIDE RECORDS SUMMARY | 2024-05-14 16:50 | XMS_ITS | Encounter Summary ---
Author Organization [facility] Address [address] [facility] [place] [address] Care Team Providers Care Outside Rigger Name Role Phone Vangie Valentine MD Primary Care Provider [phone] Reason for Visit * Reason Comments Hives Full body * Consult, Test & Treat (Routine) - Closed Specialty Diagnoses / Procedures Referred By Contac t Referred To Contact Dermatology Diagnoses Rash and other nonspecific skin eruption Vangie Valentine MD [address] [place] [phone] Referral ID Status Reason Start Date Expiration Date Visits Re quested Visits Authorized [id number] Closed 03/07/2023 03/06/2024 1 1 Encounter Details Date Type Department Care Team (Late st Contact Info) Description 04/16/2023 3:00 PM HELP AID Office Visit [facility] - Dermatology [address] [place] [address], [place] [phone] Deann Hoang MD [address] [place] [address] [place] [phone] Tinea versicolor (Primary Dx); Venous stasis dermatitis of both lower extremities; Urticaria Social History Tobacco Use Types Packs/Day Years [...] on file documented as of this encounter Patient Instructions * Patient Instructions* José Antonio Villalobos MD - 04/16/2023 4:08 PM HELP AID Thank you for visiting [facility]! Please follow these instructions as we discussed today: 1) Rash on your back is called tinea versicolor. Start using ketoconazole shampoo (at least three times weekly). Leave in place for 3-5 minutes before washing out. Can use up to daily if desired. 2) For your hives, start taking an antihistamine every day to prevent this. Take 10mg cetirizine (Zyrtec) once to twice daily. Take Benadryl as needed for flares. 3) Apply triamcinolone ointment up to twice daily to legs to treat the stasis dermatitis on your legs. You can put this under Follow up in 3 months AID documented in this encounter Progress Notes * José Antonio Villalobos MD - 04/16/2023 3:50 PM CST Chief Complaint Patient presents with ??? Hives Full body HPI: Mann Choudhury is a 62 year old male who presents as a new patient. Concerns: 1) Dermatitis/hives - Onset 2-3 years ago - Itchy rash, occasionally with swollen lips - Induced by stress primarily, within 10-15 minutes - Goes away within an hour, especially after taking Benadryl - Carries an Epipen 2) Recurrent lower leg cellulitis - Onset age 61 - Has been hospitalized for this in the past - On Lasix, Coreg - Does not like to wear compression stockings Physical exam: Skin exam was conducted to include the scalp, face, lips, conjunctiva, ears, neck, chest, abdomen, back, upper extremities, and lower extremities and was notable for the following: - no active wheals on examination today - innumerable pink circular macules coalescing into polycyclic plaques on mid to lower back - poorly def hyperpigmented patches on bilateral lower extremities in context of 1+ BLE edema Assessment/Plan: Chronic urticaria, uncontrolled - discussed diagnosis, expected clinical course, treatment options, side effects - start cetirizine 10-20mg QD-BID scheduled Tinea versicolor, back - discussed diagnosis, expected clinical course, treatment options, side effects - start ketoconazole shampoo TIW as body wash to the affected areas Stasis dermatitis, uncontrolled - discussed diagnosis, expected clinical course, treatment options, side effects - start triamcinolone ointment BID underneath diabetic socks Return to clinic in 3 months José Antonio Villalobos MD [facility] Dermatology Resident, PGY-4 AID Associated attestation - Deann Hoang MD - 04/17/2023 12:26 PM HELP AID I have seen and examined the patient with the resident and I agree with the findings and plan of care as documented by the resident. Date of Service: 04/16/2023 Deann Hoang MD documented in this encounter Plan of Treatment Not on file documented as of this encounter Visit Diagnoses Diagnosis Tinea versicolor- Primary Pityriasis versicolor Venous stasis dermatitis of both lower extremities Urticaria documented in this encounter Care Teams Outside Rigger Relationship Specialty Start Date End Date Vangie Valentine MD [address] [place] [address] PCP - General 08/18/21 documented as of this encounter
--- OUTSIDE RECORDS SUMMARY | 2024-05-14 16:50 | XMS_ITS | Clinical Summary ---
Author Organization [facility] Address [address] [place] [address] Care Team Providers Care Information Architect Name Role Phone Vangie Valentine MD Primary Care Provider [phone] Source Comments [facility],non-owned Affiliates and Associated Physician Practices is amultiple site organization consisting of ambulatory clinics and hospital sitesin [place], [place], [place] and [place]. This disclosure is being madepursuant to the Care Everywhere program and may not contain all information available regarding this patient. Last updated 18.[facility] Allergies Active Allergy Reactions Criticality Noted Date Comments Lidocaine Swelling Medium 11/25/2021 Medications * Be aware that medications may not be up to date on this document. Alwaysverify current medications with the patient. Medication Sig Dispensed Refills Start Date End Date Status albuterol HFA (Proventil; Ventolin; Proair) 108 (90 Base) MCG/ACT inhaler Inhale 2 (two) puffs by mouth every 4 hours as needed 09/25/2022 Active Aspirin Low Dose 81 MG tablet Take 1 (one) tablet by mouth once daily as directed. 07/07/2021 Active Symbicort 160-4.5 MCG/ACT inhaler Inhale 2 (two) puffs by mouth 2 times daily 09/25/2022 Active carvedilol (Coreg) 6.25 MG tablet Take 1 (one) tablet by mouth 2 times daily 02/07/2023 Active cyclobenzaprine (Flexeril) 10 MG tablet Take 1 (one) tablet by mouth 3 times daily 09/25/2022 Active digoxin (Lanoxin) 0.25 MG tablet Take 1 (one) tablet by mouth once daily 02/07/2023 Active EPINEPHrine (Epipen) 0.3 MG/0.3ML auto-injector pen INJECT 1 PEN IN THE MUSCLE ONE TIME DIRECTED 02/07/2023 Active furosemide (Lasix) 40 MG tablet Take 1 (one) tablet by mouth once daily as needed 02/07/2023 Active gabapentin (Neurontin) 800 MG tablet TAKE 2 TABLETS BY MOUTH TWICE DAILY DIRECTED 03/20/2023 Active albuterol-ipratropium (Duo-Neb) 0.5-2.5 (3) MG/3ML nebulizer solution 04/11/2023 Active Magnesium Oxide -Mg Supplement 400 (240 Mg) MG 04/11/2023 Active metoprolol succinate XL 24hr (Toprol XL) 50 MG tablet Take 1 (one) tablet by mouth once daily 01/05/2023 Active potassium chloride ER 10 MEQ tablet TAKE 2 TABLETS BY MOUTH EVERY DAY DIRECTED 03/29/2023 Active pioglitazone (Actos) 30 MG tablet TAKE 1 TABLET BY MOUTH EVERY DAY WITH A MEAL 01/26/2023 Active ketoconazole (Nizoral) 2 % shampooIndications:Tin ea versicolor Apply to wet hair, leave on for 3 minutes, then rinse; three times weekly. 30 days supply 120 mL 2 04/16/2023 Active triamcinolone acetonide (Kenalog) 0.1 % ointmentIndications:Ve nous stasis dermatitis of both lower extremities Apply to affected areas twice daily. 30 days supply. 454 g 2 04/16/2023 Active Active Problems Problem Noted Date Diagnosed Date [...] Comments Blood Pressure 135/97 06/28/2023 8:35 AM GLASS BLOWING LATHE OPERATOR Pulse 90 06/28/2023 8:35 AM GLASS BLOWING LATHE OPERATOR Temperature 36.6 ??C (97.9 ??F) 06/28/2023 8:35 AM CS T Respiratory Rate - - Oxygen Saturation - - Inhaled Oxygen Concentration - - Weight 135.2 kg (298 lb) 06/28/2023 8:35 AM GLASS BLOWING LATHE OPERATOR Height 182.9 cm (6') 06/28/2023 8:35 AM GLASS BLOWING LATHE OPERATOR Body Mass Index 40.42 06/28/2023 8:35 AM GLASS BLOWING LATHE OPERATOR Plan of Treatment Health Maintenance Due Date Last Done Comments COLOGUARD (AGES 45-75) - COL ON CA SCREENING 1958 COLON MONITORING 1958 COLONOSCOPY - COLON CA SCREENING 1958 CT COLONOGRAPHY - COLON CA SCREENING 1958 Colorectal Cancer Screening 1958 FIT - COLON CA SCREENING 1958 FLEX SIG - COLON CA SCREENING 1958 LIPID TESTING 1958 HIV SCREENING 1973 HEPATITIS C SCREENING 08/12/1976 DTAP/TDAP/TD VACCINES (1 - Tdap) 1977 ZOSTER VACCINE (1 of 2) 2008 Respiratory Syncytial Virus (RSV) Vaccine Pt: or over 60 yrs (1 - Risk 60-74 years 1-dose series) 2018 DEPRESSION SCREENING 05/28/2023 SCREENING FOR DIABETES 06/28/2023 PNEUMOCOCCAL VACCINE 65+ (1 of 1 - PCV) 08/18/2023 COVID-19 VACCINE (3 - 2023-2 5 season) 2024 01/16/2022, 08/19/2020 INFLUENZA VACCINE (#1) 2024 3, 07/03/2019, 04/10/2019 HEPATITIS B VACCINE Aged Out No longe r eligible based on patient's age to complete this topic HIB VACCINE Aged Out No longer eligi ble based on patient's age to complete this topic HPV VACCINE Aged Out No longer eligi ble based on patient's age to complete this topic MENINGOCOCCAL VACCINE Aged Out No pradip joe eligible based on patient's age to complete this topic Care Teams Information Architect Relationship Specialty Start Date End Date Vangie Valentine MD [address] [place] [address] PCP - General 08/18/21
--- OUTSIDE RECORDS SUMMARY | 2024-05-14 16:50 | XMS_ITS | Encounter Summary ---
Author Organization [facility] Address [address] [place] [address] Care Team Providers Care Executive Producer Promos Name Role Phone Vangie Valentine MD Primary Care Provider [phone] Encounter Details Date Type Department Care Team (Latest Contact Info) Description 06/28/2023 Travel Social History Tobacco Use Types Packs/Day Years Used Date Smoking Tobacco: Never Smokeless Tobacco: Never Alcohol Use Standard Drinks/Week Comments Never 0 (1 standard drink = 0.6 oz pur e alcohol) Sex and Gender Information Value Date Recorded Sex Assigned at Not on file Gender Identity Not on file Sexual Orientation Not on file documented as of this encounter Plan of Treatment Not on file documented as of this encounter Visit Diagnoses Not on filedocumented in this encounter Care Teams Executive Producer Promos Relationship Specialty Start Date End Date Vangie Valentine MD [address] [place] [address] PCP - General 08/18/21 documented as of this encounter
--- OUTSIDE RECORDS SUMMARY | 2024-05-14 16:50 | XMS_ITS | Encounter Summary ---
Author Organization [facility] Address [address] [address] Care Team Providers Care Crayon Sorting Machine Feeder Name Role Phone Vangie Valentine MD Primary Care Provider [phone] Encounter Details Date Type Department Care Team (Latest Contact Info) Description 05/22/2023 Travel Social History Tobacco Use Types Packs/Day [...] on filedocumented in this encounter Care Teams Crayon Sorting Machine Feeder Relationship Specialty Start Date End Date Vangie Valentine MD [address] [place] [address] PCP - General 08/18/21 documented as of this encounter
--- OUTSIDE RECORDS SUMMARY | 2024-05-14 16:50 | XMS_ITS | Encounter Summary ---
Author Organization [facility] Address [address] [place] [address] Care Team Providers Care Manager Integration Name Role Phone Vangie Valentine MD Primary Care Provider [phone] Encounter Details Date Type Department Care Team (Latest Contact Info) Description 06/26/2023 Travel Social History Tobacco Use Types Packs/Day [...] on filedocumented in this encounter Care Teams Manager Integration Relationship Specialty Start Date End Date Vangie Valentine MD [address] [place] [address] PCP - General 08/18/21 documented as of this encounter
--- OUTSIDE RECORDS SUMMARY | 2024-05-14 16:50 | XMS_ITS | Encounter Summary ---
Author Organization [facility] Address [address] [place] [address] Care Team Providers Care Senior Supplier Quality Engineer Name Role Phone Vangie Valentine MD Primary Care Provider [phone] Encounter Details Date Type Department Care Team (Latest Contact Info) Description 04/16/2023 Travel Social History Tobacco Use Types Packs/Day [...] on filedocumented in this encounter Care Teams Senior Supplier Quality Engineer Relationship Specialty Start Date End Date Vangie Valentine MD [address] [place] [address] PCP - General 08/18/21 documented as of this encounter
--- OUTSIDE RECORDS SUMMARY | 2024-05-14 16:50 | XMS_ITS | Referral Summary ---
Author Organization [facility] Address [address] [place] [address] Care Team Providers Care Editor Name Role Phone Vangie Valentine MD Primary Care Provider [phone] Source Comments [facility],non-owned Affiliates and Associated Physician Practices is amultiple site organization consisting of ambulatory clinics and hospital sitesin [place], [place], [place] and [place]. This disclosure is being madepursuant to the Care Everywhere program and may not contain all information available regarding this patient. Last updated 18.[facility] Allergies Active Allergy Reactions Criticality Noted Date [...] Comments Blood Pressure 135/97 06/28/2023 8:35 AM QUALITY SYSTEMS TECHNICIAN Pulse 90 06/28/2023 8:35 AM QUALITY SYSTEMS TECHNICIAN Temperature 36.6 ??C (97.9 ??F) 06/28/2023 8:35 AM CS T Respiratory Rate - - Oxygen Saturation - - Inhaled Oxygen Concentration - - Weight 135.2 kg (298 lb) 06/28/2023 8:35 AM QUALITY SYSTEMS TECHNICIAN Height 182.9 cm (6') 06/28/2023 8:35 AM QUALITY SYSTEMS TECHNICIAN Body Mass Index 40.42 06/28/2023 8:35 AM QUALITY SYSTEMS TECHNICIAN Plan of Treatment Not on file Care Teams Editor Relationship Specialty Start Date End Date Vangie Valentine MD [address] [place] [phone] PCP - General 08/18/21
--- OUTSIDE RECORDS SUMMARY | 2024-05-14 16:51 | XMS_ITS | Encounter Summary ---
Author Organization [facility] Healthcare Address [address] [place] [address] Care Team Providers Care Head Of Commission Department Name Role Phone No, Physician Unavailable Vangie Valentine MD Primary Care Provider [phone] Reason for Visit * Reason Comments Shortness of Breath Insect Bite Encounter Details Date Type Department Care Team (Late st Contact Info) Description 01/27/2023 8:30 PM CDT - 01/27/2023 10:23 PM CDT Emergency [address] [address] Cellulitis of right upper extremity (Primary Dx) Discharge Disposition: Discharge to home or self care Social History Tobacco Use Types Packs/Day Years Used Date Smoking Tobacco: Never Passive Smoke Exposure: Yes Smokeless Tobacco: Never Personal Safety Answer Date Recorded Have you ever been in or are you currently in a harmful physical or emotional relationship or is someone making you feel afraid or unsafe? Denies 01/27/2023 Sex and Gender Information Value Date Recorded Sex Assigned at Not on file Legal Sex Male 8:36 AM CDT Gender Identity Not on file Sexual Orientation Not on file documented as of this encounter Last Filed Vital Signs Vital Sign Reading Time Taken Comments Blood Pressure 151/93 01/27/2023 4:00 PM CDT Pulse 128 01/27/2023 4:00 PM CDT Temperature 36.9 ??C (98.5 ??F) 01/27/2023 4:00 PM CD T Respiratory Rate 17 01/27/2023 4:00 PM CDT Oxygen Saturation 98% 01/27/2023 4:00 PM CDT Inhaled Oxygen Concentration - - Weight 127 kg (280 lb) 01/27/2023 4:00 PM CDT Height 182.9 cm (6') 01/27/2023 4:00 PM CDT Body Mass Index 37.97 01/27/2023 4:00 PM CDT documented in this encounter Discharge Instructions * Discharge Instructions* Vasquez Lucero NP - 01/27/2023 10:08 PM CDT Continue to take all home medicine as prescribed, take this medicine as prescribed, follow-up with primary care doctor next 2-3 days for re-evaluation, return to ED immediately for any worsening symptoms. documented in this encounter Medications at Time of Discharge acetaminophen-cod eine (TYLENOL with CODEINE #3) 300-30 mg per tablet Take 1-2 tablets by mouth every 6 (six) hours as needed for pain 15 tablet 01/04/2021 aspirin 325 mg enteric coated tablet 07/09/2019 carvediloL (COREG) 6.25 mg tablet 08/13/2019 digoxin (LANOXIN) 250 mcg (0.25 mg) tablet 08/13/2019 diltiazem (TIAZAC) 240 mg 24 hr capsule 08/11/2019 famotidine (PEPCID) 20 mg tablet Take 1 tablet (20 mg total) by mouth 2 (two) times a day 10 tablet 11/25/2021 furosemide (LASIX) 40 mg tablet 08/13/2019 gabapentin (NEURONTIN) 800 mg tablet Take 800 mg by mouth 3 (three) times a day glimepiride (AMARYL) 2 mg tablet 08/11/2019 Incruse Ellipta 62.5 mcg/actuation blister with device INL 1 PUFF PO QD 07/15/2019 lidocaine viscous (XYLOCAINE) 2 % solution Take 10 mL by mouth 3 (three) times a day 100 mL 01/04/2021 metFORMIN XR (GLUCOPHAGE XR) 500 mg 24 hr tablet TK 1 T PO BID B MEALS 08/26/2019 naproxen (NAPROSYN) 500 mg tablet Take 1 tablet (500 mg total) by mouth 2 (two) times a day with meals 30 tablet 06/11/2022 predniSONE (DELTASONE) 20 mg tablet Take 3 tablets (60 mg) by mouth daily 12 tablet 07/28/2022 simvastatin (ZOCOR) 40 mg tablet 08/11/2019 cephalexin (KEFLEX) 500 mg capsule Take 1 capsule (500 mg total) by mouth 4 (four) times a day for 7 days 28 capsule 01/27/2023 02/03/2023 documented as of this encounter Ordered Prescriptions Prescription Sig Dispense Quantity Refills Last Filled Start Date End Date cephalexin (KEFLEX) 500 mg capsule Take 1 capsule (500 mg total) by mouth 4 (four) times a day for 7 days 28 capsule 01/27/2023 3 documented in this encounter Discharge Disposition Disposition Code Departure Means Destination Comment s Discharge to home or self care documented in this encounter ED Notes * Jackie Quiroz RN - 01/27/2023 9:18 PM CDT Pt reports swelling and redness to right hand. ? Insect bite. Pt reports sxs x 2 days and has gotten worse.pt denies any fever, chills, n/v/d. Jackie Quiroz RN 01/27/232119 * Vasquez Lucero NP - 01/27/2023 8:45 PM CDT Images from the original note were not included. CHIEF COMPLAINT: Chief Complaint Patient presents with Shortness of Breath Insect Bite HPI 10:08 PM Mann Choudhury is a 62 y.o. male presenting to the ED c/o insect bite. He states that 2 days ago he would insect bite to his right hand, he was doing well until last night he noticed some pain,swelling to his right hand, he also noticed some swelling to his tongue and lip earlier today so hecame in here. Upon arrival ED he was having some shortness of breath, history that this could be due to his not using oxygen as well as he walked significantly along distress that he usually does notwalk and it was hot weather outside today. At this time denies any shortness of breath or chest pain. Denies any difficulty in swallowing. Denies any fever or chill. Denies any abdominal discomfort or any urinary discomfort. Denies any other complaint. History provided by patient. PCP: Vangie Valentine MD PAST MEDICAL HISTORY Past Medical History: Diagnosis Date A-fib (CMS/HCC) (HCC) CHF (congestive heart failure) (CMS/[facility], [facility]IN [facility]) (HCC) Diabetes (HCC) Hypertension Neuropathy (CMS/HCC) PAST SURGICAL HISTORY No past surgical history on file. FAMILY HISTORY Family History Problem Relation Age of Onset Emphysema Mother COPD Mother Heart failure Father MEDICATIONS GIVEN IN THE ED Medications methylPREDNISolone sodium succinate (SOLU-medrol) preservative free injection 125 mg (125 mg intravenous Given 01/27/232129) famotidine (PEPCID) injection 40 mg (40 mg intravenous Given 01/27/232130) cephalexin (KEFLEX) capsule 500 mg (500 mg oral Given 01/27/232130) CURRENT HOME MEDICATIONS No current facility-administered medications for this encounter. Current Outpatient Medications: acetaminophen-codeine (TYLENOL with CODEINE #3) 300-30 mg per tablet, Take 1-2 tablets by mouth every 6 (six) hours as needed for pain, Disp: 15 tablet, Rfl: 0 aspirin 325 mg enteric coated tablet, , Disp: , Rfl: carvediloL (COREG) 6.25 mg tablet, , Disp: , Rfl: cephalexin (KEFLEX) 500 mg capsule, Take 1 capsule (500 mg total) by mouth 4 (four) times a day for7 days, Disp: 28 capsule, Rfl: 0 digoxin (LANOXIN) 250 mcg (0.25 mg) tablet, , Disp: , Rfl: diltiazem (TIAZAC) 240 mg 24 hr capsule, , Disp: , Rfl: EPINEPHrine 0.3 mg/0.3 mL auto-injection syringe, Inject 0.3 mL (0.3 mg total) into the muscle as instructed once for 1 dose, Disp: 1 each, Rfl: 1 famotidine (PEPCID) 20 mg tablet, Take 1 tablet (20 mg total) by mouth 2 (two) times a day, Disp: 10 tablet, Rfl: 0 furosemide (LASIX) 40 mg tablet, , Disp: , Rfl: gabapentin (NEURONTIN) 800 mg tablet, Take 800 mg by mouth 3 (three) times a day, Disp: , Rfl: glimepiride (AMARYL) 2 mg tablet, , Disp: , Rfl: Incruse Ellipta 62.5 mcg/actuation blister with device, INL 1 PUFF PO QD, Disp: , Rfl: ipratropium-albuteroL (DUO-NEB) 0.5-2.5 mg/3 mL nebulizer solution, Take 3 mL by nebulization every6 (six) hours, Disp: 360 mL, Rfl: 3 lidocaine viscous (XYLOCAINE) 2 % solution, Take 10 mL by mouth 3 (three) times a day, Disp: 100 mL, Rfl: 0 metFORMIN XR (GLUCOPHAGE XR) 500 mg 24 hr tablet, TK 1 T PO BID B MEALS, Disp: , Rfl: naproxen (NAPROSYN) 500 mg tablet, Take 1 tablet (500 mg total) by mouth 2 (two) times a day with meals, Disp: 30 tablet, Rfl: 0 predniSONE (DELTASONE) 20 mg tablet, Take 3 tablets (60 mg) by mouth daily, Disp: 12 tablet, Rfl: 0 simvastatin (ZOCOR) 40 mg tablet, , Disp: , Rfl: ALLERGIES Allergies Allergen Reactions Lidocaine Edema SOCIAL HISTORY Social History Tobacco Use Smoking status: Never Passive exposure: Yes Smokeless tobacco: Never Substance and Sexual Activity Drug use: Not on file Sexual activity: Not on file Alcohol Use: Not on file PHYSICAL EXAM TRIAGE VITAL SIGNS: ED Triage Vitals [01/27/23 1600] Temp Pulse Resp BP SpO2 36.9 ??C (98.5 ??F) (!) 128 17 151/93 98 % Temp src Heart Rate Source Patient Position BP Location FiO2 (%) Oral Monitor Sitting Left arm -- Height Height Method Weight Weight Method 1.829 m (6') Stated 127 kg (280 lb) -- Physical Exam Vitals and nursing note reviewed. Constitutional: General: He is not in acute distress. Appearance: Normal appearance. He is well-developed. He is not ill-appearing, toxic-appearing or diaphoretic. HENT: Head: Normocephalic and atraumatic. Jaw: There is normal jaw occlusion. Right Ear: Hearing and external ear normal. Left Ear: Hearing and external ear normal. Nose: Nose normal. Mouth/Throat: Mouth: Mucous membranes are dry. Eyes: General: Lids are normal. Vision grossly intact. Extraocular Movements: Extraocular movements intact. Conjunctiva/sclera: Conjunctivae normal. Cardiovascular: Rate and Rhythm: Normal rate. Rhythm irregular. Heart sounds: No murmur heard. Pulmonary: Effort: Pulmonary effort is normal. No respiratory distress. Breath sounds: Normal breath sounds and air entry. Abdominal: Palpations: Abdomen is soft. Tenderness: There is no abdominal tenderness. Musculoskeletal: General: No swelling. Right hand: Swelling present. Left hand: Normal. Hands: Cervical back: Full passive range of motion without pain, normal range of motion and neck supple. Right lower leg: No edema. Left lower leg: No edema. Comments: Edema, erythema, warmth noted on right hand, along thumb, consistent with developing cellulitis. No obvious sign of drainable abscess noted on exam. Skin: General: Skin is warm and dry. Capillary Refill: Capillary refill takes less than 2 seconds. Neurological: General: No focal deficit present. Mental Status: He is alert and oriented to person, place, and time. GCS: GCS eye subscore is 4. GCS verbal subscore is 5. GCS motor subscore is 6. Cranial Nerves: Cranial nerves 2-12 are intact. Psychiatric: Attention and Perception: Attention normal. Mood and Affect: Mood normal. Speech: Speech normal. Behavior: Behavior normal. Behavior is cooperative. Thought Content: Thought content normal. LABS Labs Reviewed COMPREHENSIVE METABOLIC PANEL - Abnormal Result Value Sodium 137 Potassium, pl 4.3 Chloride 101 CO2 31 Anion gap 5 BUN 17 Creatinine 0.60 (*) Glucose 118 Calcium 8.9 Bilirubin, total 0.5 Protein, pl 7.0 Albumin 4.0 Alk phos 91 ALT 31 AST 31 CBC WITH AUTO DIFFERENTIAL - Abnormal WBC 10.4 (*) Hgb 16.0 Hct 49.5 Plt 145 (*) MPV 11.5 RBC 5.12 MCV 96.7 (*) MCH 31.3 MCHC 32.3 RDW CV 13.1 RDW SD 46.8 NRBC abs 0.00 TROPONIN T HIGH-SENSITIVITY SERIES (BASELINE, 2HR, 4HR, 6HR) - Abnormal Trop T hs 26 (*) DIFFERENTIAL AUTO - Abnormal Neutrophil abs 6.7 (*) Imm gran abs 0.0 Lymphocyte abs 2.5 Monocyte abs 1.0 (*) Eosinophil abs 0.1 Basophil abs 0.0 Neutrophil pct 64.5 Imm gran pct 0.3 Lymphocyte pct 24.3 Monocyte pct 9.8 Eosinophil pct 0.8 Basophil pct 0.3 TROPONIN T HIGH-SENSITIVITY 2-HOUR - Abnormal Trop T hs 24 (*) Trop T hs delta -2 Trop T hs interp Insignificant TROPONIN T HIGH-SENSITIVITY 4-HR - Abnormal Trop T hs 25 (*) Trop T hs delta -1 Trop T hs interp Insignificant EGFR eGFR 108 PRO B-TYPE NATRIURETIC PEPTIDE NT-proBNP 279 TROPONIN T HIGH-SENSITIVITY 6-HOUR POCT GLUCOSE DEVICE Glucose, POC 94 RADIOLOGY XR Chest 1 Vw Portable Result Date: 01/27/2023 Narrative: EXAM DESCRIPTION: XR CHEST 1 VIEW REASON FOR STUDY: Shortness of breath C/o shortness ofbreath. States that he was winded walking from car to ED. Pt was not wearing his O2. TECHNIQUE: Single frontal radiographic view(s) of the chest. COMPARISON: 06/10/2022 FINDINGS: There is cardiomegaly. There is mild prominence of the pulmonary vasculature. There is no definite evidence of a pneumothorax. There is no definite evidence of a pleural effusion. There are mild patchy bibasilar airspace opacities. The osseous structures are acutely grossly stable. IMPRESSION: Cardiomegaly with mild prominence of pulmonary vasculature. Mild patchy bibasilar airspace opacities, which is likely related to subsegmental atelectasis/scarring and less likely developing airspace disease. THIS IS AN ELECTRONICALLY VERIFIED FINAL REPORT 01/27/2023 5:16 PM - Electronically signed by Lois Michel D.O. PS T: Report ID: [id number] Reading Location: [id number] ED COURSE/MEDICAL DECISION MAKING ED Course as of 01/27/232207 Time: 01/28 2052 Comment: He came in for insect bite to his right hand that happened 2 days ago, he noticed some pain, swelling since last night along with some tongue swelling and lip numbness earlier today. On examhe does have a erythema, edema, warmth to his right hand which is consistent with developing cellulitis. I gave him a dose of Keflex here. By: Vasquez Lucero NP Time: 01/28 2052 Comment: Does a mild leukocytosis. By: Vasquez Lucero NP Time: 01/28 2052 Comment: Upon arrival to ED he was having shortness of breath, he states that he usually uses oxygen 24-7, however he was not using oxygen today, in addition he normally does not walk so much, he reviewed that his shortness of breath probably has to do with excessive walking too long distance from parking to the ED along with hot weather. At this time he denies any chest pain or shortness of breath. By: Vasquez Lucero NP Time: 01/27 2053 Comment: He would history of AFib, he take Cardizem and metoprolol in the evening has not taken today's dose. By: Vasquez Lucero NP Time: 01/27 2053 Comment: His EKG shows AFib with RVR, 2 tropes are negative. Chest x-ray shows mild pulmonary congestion, he is on Lasix. By: Vsaquez Lucero NP Time: 01/27 2201 Comment: Repeat EKG shows AFib, does not show AFib with RVR, he also states that he is feeling tired and anxious while being in hospital. I spoke with Dr. Winters and he advised me that patient is safe to go home. By: Vasquez Lucero NP Time: 01/27 2202 Comment: I am sending him home with instruction to continue take all his home medicine as prescribed, I prescribed him Keflex for cellulitis to his hand, advised return to ED immediately for any worsening symptoms. She agrees with this plan. By: Vasquez Lucero NP Procedures FINAL IMPRESSION Cellulitis of right upper extremity DISPOSITION: Home All findings were discussed with patient. Pt agreeable with plan. Non toxic appearing, vitals stable. Patient stable for discharge home. Given return to ER precautions Close outpatient follow-up with a low threshold to return has been mandated , concerning symptoms have been emphasized in detail, and this patient expresses understanding PATIENT INSTRUCTED TO FOLLOW UP No follow-up provider specified. DISCHARGE MEDICATIONS Your medication list START taking these medications Instructions Last Dose Given Next Dose Due cephalexin 500 mg capsule Commonly known as: KEFLEX Take 1 capsule (500 mg total) by mouth 4 (four) times a day for 7 days ASK your doctor about these medications Instructions Last Dose Given Next Dose Due acetaminophen-codeine 300-30 mg per tablet Commonly known as: TYLENOL with CODEINE #3 Take 1-2 tablets by mouth every 6 (six) hours as needed for pain aspirin 325 mg enteric coated tablet carvediloL 6.25 mg tablet Commonly known as: COREG digoxin 250 mcg (0.25 mg) tablet Commonly known as: LANOXIN diltiazem 240 mg 24 hr capsule Commonly known as: TIAZAC EPINEPHrine 0.3 mg/0.3 mL auto-injection syringe Inject 0.3 mL (0.3 mg total) into the muscle as instructed once for 1 dose famotidine 20 mg tablet Commonly known as: PEPCID Take 1 tablet (20 mg total) by mouth 2 (two) times a day furosemide 40 mg tablet Commonly known as: LASIX gabapentin 800 mg tablet Commonly known as: NEURONTIN Take 800 mg by mouth 3 (three) times a day glimepiride 2 mg tablet Commonly known as: AMARYL Incruse Ellipta 62.5 mcg/actuation blister with device Generic drug: umeclidinium INL 1 PUFF PO QD ipratropium-albuteroL 0.5-2.5 mg/3 mL nebulizer solution Doctor's comments: For treatment of sob, R06.02 Commonly known as: DUO-NEB Take 3 mL by nebulization every 6 (six) hours lidocaine viscous 2 % solution Commonly known as: XYLOCAINE Take 10 mL by mouth 3 (three) times a day metFORMIN XR 500 mg 24 hr tablet Commonly known as: GLUCOPHAGE XR TK 1 T PO BID B MEALS naproxen 500 mg tablet Commonly known as: NAPROSYN Take 1 tablet (500 mg total) by mouth 2 (two) times a day with meals predniSONE 20 mg tablet Commonly known as: DELTASONE Take 3 tablets (60 mg) by mouth daily simvastatin 40 mg tablet Commonly known as: ZOCOR Where to Get Your Medications You can get these medications from any pharmacy Bring a paper prescription for each of these medications cephalexin 500 mg capsule This examination was transcribed using the [employer] voice recognition system without human manager risk management. In an effort to expedite patient care, this report has not been adjusted for typographical, grammatical, and syntax by a trained pesticide use medical coordinator. Vasquez Lucero NP 01/27/232207 Cosigned by Marcelo Winters II, MD at 01/28/2023 3:25 AM CDT * Jonathan Mae RN - 01/27/2023 4:02 PM CDT Pt arrives c/o insect bite to right hand. Hand is swollen and red. Pt also states that he has swelling to lip. Pt also c/o shortness of breath. States that he was winded walking from car to ED. Pt was not wearing his O2. Supposed to wear 4L at all times per the patient. documented in this encounter Plan of Treatment Not on file documented as of this encounter Procedures Procedure Name Priority Date/Time Associated Diagnosis Comments ECG 12-LEAD STAT 01/27/2023 8:55 PM CDT POCT GLUCOSE DEVICE Routine 01/27/2023 8 :26 PM CDT TROPONIN T HIGH-SENSITIVITY 4-HR Timed 01/27/2023 8:12 PM CDT PRO B-TYPE NATRIURETIC PEPTIDE Timed 01/27/2023 8:12 PM CDT TROPONIN T HIGH-SENSITIVITY 2-HOUR Timed 01/27/2023 6:06 PM CDT XR CHEST 1 VIEW ED 01/27/2023 5:03 PM CDT TROPONIN T HIGH-SENSITIVITY SERIES (BASELINE, 2HR, 4HR, 6HR) STAT 01/27/2023 4:14 PM CDT EGFR STAT 01/27/2023 4:14 PM CDT DIFFERENTIAL AUTO STAT 01/27/2023 4:1 4 PM CDT CBC WITH AUTO DIFFERENTIAL STAT 01/27/2023 4:14 PM CDT COMPREHENSIVE METABOLIC PANEL STAT 01/27/2023 4:14 PM CDT ECG 12-LEAD STAT 01/27/2023 4:10 PM CDT documented in this encounter Results * ECG 12 lead (01/27/2023 8:55 PM CDT) [facility] Ventricular Rate EKG/Min 97 BPM [facility] Atrial Rate 83 BPM [facility] QRS-Interval (MSEC) 146 ms [facility] QT-Interval (MSEC) 378 ms [facility] QTc 480 ms [facility] R Nebo -41 degrees [facility] T Nebo -7 degrees [facility] Diagnosis Atrial fibrillation Left axis deviation Right bundle branch block Abnormal ECG When compared with ECG of 27-JAN-2023 16:10, No significant change was found Confirmed by HAMLET JOHNSTON M.D. ([id number]) on 01/30/2023 6:45:43 AM [facility] 01/27/2023 8:55 PM CDT 01/30/2023 6:45 AM CDT Vasquez Lucero SKIP HOIST ENGINEER ECG ORDERABLES Final Result [facility] * POCT glucose (01/27/2023 8:26 PM CDT) [facility] Glucose, POC 94 70 - 199 mg/dL [facility] Blood 01/27/2023 8:26 PM CDT 01/27/2023 8:26 PM CDT Notinfile Unknown LAB POCT ORDERABLES - DEVICE F inal Result [facility] [address] [facility] Department [place] [address] * Pro B-type natriuretic peptide (01/27/2023 8:12 PM CDT) [facility] NT-proBNP 279 <=300 pg/mL [facility] Comment: Interpretive Comments: A. Dyspnea in Acute Care Setting All Ages: ?< 300 pg/ml, acute heart failure unlikely. < 50 yrs: ?300 - 450 pg/ml, further investigation warranted. ? > 450 pg/ml, acute heart failure likely. 50 - 74 yrs: ? 300 - 900 pg/ml, further investigation warranted. ? > 900 pg/ml, acute heart failure likely . > or = 75 yrs: ? 450 - 1800 pg/ml, further investigation warranted. ? > 1800 pg/ml, acute heart failure likely. B. Non-acute Setting < 75 yrs ? < 125 pg/ml, rules out heart failure. ? > or = 125 pg/ml, further investigation warranted. > or = 75 yrs ?< 450 pg/ml, rules out heart failure. ? > or = 450 pg/ml, further investigation warranted. - Knowledge of each individual patient's NT-proBNP range may be more useful than using similar cut-points for every patient. Please note that marked elevations in NT-proBNP levels may be observed in state other than Left Ventricular Congestive Failure, including: acute coronary syndromes, right heart strain/failure (including pulmonary embolism and cor pulmonale), critical illness, renal failure, as well as advanced age. - References: 1. Loyd GRIFFIN et.al. Eur Heart J. 2006:27:330-337. 2. Rajan BURRELL, Van BRICEÑO. J. AM Tarah Cardiol: Cardiovasc Imag. 2009;2: 216- 225. Interpretive Data Last Revised Date: 2018. Blood 01/27/2023 8:12 PM CDT 01/27/2023 8:20 PM CDT us Nancy Smart DO LAB BLOOD ORDERABLES Final Resu lt [address] [address] * (ABNORMAL) Troponin T high-sensitivity 4-hour (01/27/2023 8:12 PM CDT) Trop T hs 25(H) <=22 ng/L [facility] Comment: Interpretive Data For further hscTnT resources including the diagnostic algorithm and an aid in interpretation, copy and paste this link: [email or web address] Current Interpretive Data last revised 2020. Trop T hs delta -1 ng/L [facility] Trop T hs interp Insignificant [facility] Blood 01/27/2023 8:12 PM CDT 01/27/2023 8:20 PM CDT [facility] Final Resu lt Performing Organization Address [facility] Co de Phone Number [address] [address] * (ABNORMAL) Troponin T high-sensitivity 2-hour (01/27/2023 6:06 PM CDT) Pathologist [facility] Trop T hs 24(H) <=22 ng/L JUSTIN Comment: Interpretive Data For further hscTnT resources including the diagnostic algorithm and an aid in interpretation, copy and paste this link: [email or web address]/show/[email or web address] Current Interpretive Data last revised 2020. Trop T hs delta -2 ng/L [facility] Trop T hs interp Insignificant [facility] Blood 01/27/2023 6:06 PM CDT 01/27/2023 6:08 PM CDT [facility] LAB BLOOD ORDERABLES Final Resu lt Performing Organization Address City/[facility]/ZIP Co de Phone Number [address] [address] * XR Chest 1 Vw Portable (01/27/2023 5:03 PM CDT) Anatomical Region Laterality Modality Body, Chest N/A Computed Radiogr aphy 01/27/2023 5:15 PM CDT Narrative 01/27/2023 5:16 PM CDT EXAM DESCRIPTION: XR CHEST 1 VIEW REASON FOR STUDY: Shortness of breath ?? C/o shortness of breath. States that he was winded walking from car to ED. Pt was not wearing his O2. ? TECHNIQUE: Single frontal ??radiographic view(s) of the chest. COMPARISON: 06/10/2022 FINDINGS: There is cardiomegaly. ??There is mild prominence of the pulmonary vasculature. ??There is no definite evidence of a pneumothorax. ??There is no definite evidence of a pleural effusion. ??There are mild patchy bibasilar airspace opacities. The osseous structures are acutely grossly stable. IMPRESSION: Cardiomegaly with mild prominence of pulmonary vasculature. Mild patchy bibasilar airspace opacities, which is likely related to subsegmental atelectasis/scarring and less likely developing airspace disease. THIS IS AN ELECTRONICALLY VERIFIED FINAL REPORT 01/27/2023 5:16 PM - Electronically signed by ??Lois Michel D.O. PS D: ??01/27/2023 5:16 PM T: Report ID: [id number] Reading Location: ??[id number] Procedure Note Lois Michel, DO - 01/27/2023 EXAM DESCRIPTION: XR CHEST 1 VIEW REASON FOR STUDY: Shortness of breath C/o shortness of breath. States that he was winded walking from car toED. Pt was not wearing his O2. TECHNIQUE: Single frontal radiographic view(s) of the chest. COMPARISON: 06/10/2022 FINDINGS: There is cardiomegaly. There is mild prominence of thepulmonary vasculature. There is no definite evidence of a pneumothorax. There isno definite evidence of a pleural effusion. There are mild patchy bibasilar airspace opacities. The osseous structures are acutely grossly stable. IMPRESSION: Cardiomegaly with mild prominence of pulmonary vasculature. Mild patchy bibasilar airspace opacities, which is likely related to subsegmental atelectasis/scarring and less likely developing airspacedisease. THIS IS AN ELECTRONICALLY VERIFIED FINAL REPORT 01/27/2023 5:16 PM - Electronically signed by Lois Michel D.O. PS T: Report ID: [id number] Reading Location: [place] [address] [place] Nancy Smart DO IMG XR PROCEDURES Final Result * eGFR (01/27/2023 4:14 PM CDT) eGFR 108 mL/min/1. 73 m2 JUSTIN MILNER Comment: Interpretive Data Reference Interval Normal ?>/= 90 mL/min/1.73m2 Mildly decreased* ? 60 - 89 mL/min/1.73m2 Mildly to moderately decreased ?45 - 59 mL/min/1.73m2 Moderately to severely decreased ??30 - 44 mL/min/1.73m2 Severely decreased ?15 - 29 mL/min/1.73m2 Kidney Failure ?< 15 ??mL/min/1.73m2 *Relative to young adult level Estimated glomerular filtration rate is determined by the 2020 CKD-EPI equation recommended by the National Kid[employer] (A Unifying Approach to GFR Estimation: Recommendations of the NKF-ASK Task Force on Reassessing the Inclusion of Race in Diagnosing Kidney Disease, JASN 2020). The CKD-EPI equation should not be used for patients with unstable renal function and has not been validated in children and those over 70. Current interpretive data was last reviewed 2021. Blood 01/27/2023 4:14 PM CDT 01/27/2023 4:20 PM CDT Nancy Smart DO LAB BLOOD ORDERABLES Final Resu lt JUSTIN [address] [facility] Department [place] [address] * (ABNORMAL) Differential, auto (01/27/2023 4:14 PM CDT) Neutrophil abs 6.7(H) 1.7 - 6.5 K/cumm [facility] Imm gran abs 0.0 0.0 - 0.1 K/cumm [facility] Lymphocyte abs 2.5 0.8 - 3.3 K/cumm [facility] Monocyte abs 1.0(H) 0.2 - 0.8 K/cumm [facility] Eosinophil abs 0.1 0.0 - 0.5 K/cumm [facility] Basophil abs 0.0 0.0 - 0.1 K/cumm [facility] Neutrophil pct 64.5 % [facility] Comment: Interpretive Data Percent cell count reference ranges are not reported, since discordance with absolute values may lead to misinterpretation of CBC data. Current Interpretive Data was last revised on 2017. Imm gran pct 0.3 % [facility] Comment: Interpretive Data Percent cell count reference ranges are not reported, since discordance with absolute values may lead to misinterpretation of CBC data. Current Interpretive Data was last revised on 2017. Lymphocyte pct 24.3 % [facility] Comment: Interpretive Data Percent cell count reference ranges are not reported, since discordance with absolute values may lead to misinterpretation of CBC data. Current Interpretive Data was last revised on 2017. Monocyte pct 9.8 % [facility] Comment: Interpretive Data Percent cell count reference ranges are not reported, since discordance with absolute values may lead to misinterpretation of CBC data. Current Interpretive Data was last revised on 2017. Eosinophil pct 0.8 % [facility] Comment: Interpretive Data Percent cell count reference ranges are not reported, since discordance with absolute values may lead to misinterpretation of CBC data. Current Interpretive Data was last revised on 2017. Basophil pct 0.3 % [facility] Comment: Interpretive Data Percent cell count reference ranges are not reported, since discordance with absolute values may lead to misinterpretation of CBC data. Current Interpretive Data was last revised on 2017. Blood 01/27/2023 4:1 4 PM CDT 01/27/2023 4:20 PM CDT Nancy Bing LAB BLOOD ORDERABLES Final Resu lt Performing Organization Address [facility] de Phone Number JUSTIN [address] [address] * (ABNORMAL) Troponin T high-sensitivity series (baseline, 2hr, 4hr, 6hr) (01/27/2023 4:14 PM CDT) Pathologist [facility] Trop T hs 26(H) <=22 ng/L [facility] Comment: Interpretive Data For further hscTnT resources including the diagnostic algorithm and an aid in interpretation, copy and paste this link: https://nrl.testcatalog.org/show/[email or web address] Current Interpretive Data last revised 2020. Blood 01/27/2023 4:14 PM CDT 01/27/2023 4:20 PM CDT Nancy Smart DO LAB BLOOD ORDERABLES Final Resu lt Performing Organization Address [facility] Co de Phone Number JUSTIN [address] [address] * (ABNORMAL) CBC with auto differential (01/27/2023 4:14 PM CDT) [facility] WBC 10.4(H) 3.8 - 9.9 K/cumm [facility] Hgb 16.0 13.0 - 17.5 g/dL [facility] Hct 49.5 38.9 - 50.3 % [facility] Plt 145(L) 150 - 400 K/cumm [facility] MPV 11.5 9.1 - 12.3 fL [facility] RBC 5.12 4.30 - 5.80 M/cumm [facility] MCV 96.7(H) 81.3 - 96.4 fL [facility] MCH 31.3 27.1 - 33.3 pg [facility] MCHC 32.3 32.3 - 35.7 g/dL [facility] RDW CV 13.1 11.1 - 14.9 % [facility] RDW SD 46.8 35.7 - 48.1 fL [facility] NRBC abs 0.00 0.00 - 0.01 K/cumm [facility] Blood 01/27/2023 4:14 PM CDT 01/27/2023 4:20 PM CDT Nancy Smart DO LAB BLOOD ORDERABLES Final Resu lt [facility] [address] [facility] Department [place] [address] * (ABNORMAL) Comprehensive metabolic panel (01/27/2023 4:14 PM CDT) Sodium 137 135 - 145 mmol/L [facility] Potassium, pl 4.3 3.3 - 4.9 mmol/L [facility] Chloride 101 97 - 110 mmol/L [facility] CO2 31 22 - 32 mmol/L [facility] Anion gap 5 2 - 15 mmol/L [facility] BUN 17 6 - 25 mg/dL [facility] Creatinine 0.60(L) 0.80 - 1.30 mg/dL [facility] Glucose 118 70 - 199 mg/dL [facility] Comment: Interpretive Data Fasting glucose >/= 126 mg/dl is diagnostic for diabetes. ?? Fasting is defined as no caloric intake for at least 8 hours. Fasting glucose between 100 mg/dl to 125 mg/dl is diagnostic of prediabetes. In a patient with classic symptoms of hyperglycemia or hyperglycemic crisis, a random glucose >/= 200 mg/dl is diagnostic for diabetes. In the absence of unequivocal hyperglycemia, results should be confirmed by repeat testing. The classification and Diagnosis of Diabetes Diabetes Care 202; 46: S19-S40. Current interpretive data was last revised 2022. Calcium 8.9 8.5 - 10.3 mg/dL [facility] Bilirubin, total 0.5 0.1 - 1.2 mg/dL [facility] Protein, pl 7.0 6.5 - 8.5 g/dL [facility] Albumin 4.0 3.5 - 5.0 g/dL [facility] Alk phos 91 40 - 130 Units/L [facility] ALT 31 7 - 55 Units/L [facility] AST 31 10 - 50 Units/L [facility] Blood 01/27/2023 4:14 PM CDT 01/27/2023 4:20 PM CDT Nancy Smart DO LAB BLOOD ORDERABLES Final Resu lt Performing Organization Address City/[facility]/ZIP Co de Phone Number JUSTIN [address] [facility] Department [place] [address] * ECG 12 lead (01/27/2023 4:10 PM CDT) Pathologist [facility] Ventricular Rate EKG/Min 115 BPM [facility] Atrial Rate 241 BPM [facility] QRS-Interval (MSEC) 134 ms [facility] QT-Interval (MSEC) 336 ms [facility] QTc 464 ms [facility] R [place] -43 degrees [facility] T [place] -20 degrees [facility] Diagnosis Atrial fibrillation with rapid ventricular response with premature ventricular or aberrantly conducted complexes Left axis deviation Right bundle branch block Abnormal ECG When compared with ECG of 10-JUN-2022 19:18, No significant change was found Confirmed by HAMLET JOHNSTON M.D. ([id number]) on 01/29/2023 11:57:00 AM [facility] 01/27/2023 4:10 PM CDT 01/29/2023 11:57 AM CDT Nancy Smart DO ECG ORDERABLES Final Result Performing Organization Address [facility] Co de Phone Number [facility] documented in this encounter Visit Diagnoses Diagnosis Cellulitis of right upper extremity- Primary documented in this encounter Administered Medications Inactive Administered Medications - up to 3 most recent administrations Medication Order MAR Action Action Date Dose Rate Site cephalexin (KEFLEX) capsule 500 mg 500 mg, oral, Once, On 01/27/23 at 2100, For 1 dose, Indications: Skin/Soft Tissue Infection, Urinary Tract/Genitourinary InfectionIndications:Skin/Soft Tissue Infection,Urinary Tract/Genitourinary Infection Given 01/27/2023 9:31 PM CDT 500 mg famotidine (PEPCID) injection 40 mg 40 mg, intravenous, Administer over 2 Minutes, Once, On 01/27/23 at 2039, For 1 dose Given 01/27/2023 9:31 PM CDT 40 mg methylPREDNISolone sodium succinate (SOLU-medrol) preservative free injection 125 mg 125 mg, intravenous, Administer over 3 Minutes, Once, On 01/27/23 at 2038, For 1 dose Given 01/27/2023 9:30 PM CDT 125 mg documented in this encounter Active and Recently Administered Medications Times are shown in CDT. Scheduled Medication Order 01/25/2023 01/26/2023 01/27/2023 cephalexin (KEFLEX) capsule 500 mg (COMPLETED) 500 mg, oral, Once, On 01/27/23 at 2100, For 1 dose, Indications: Skin/Soft Tissue Infection, Urinary Tract/Genitourinary Infection 2130 (Given - Provid er: Jackie Quiroz RN) famotidine (PEPCID) injection 40 mg (COMPLETED) 40 mg, intravenous, Administer over 2 Minutes, Once, On 01/27/23 at 2038, For 1 dose 2130 (Given - Provid er: Jackie Quiroz RN) methylPREDNISolone sodium succinate (SOLU-medrol) preservative free injection 125 mg (COMPLETED) 125 mg, intravenous, Administer over 3 Minutes, Once, On 01/27/23 at 2037, For 1 dose 2129 (Given - Provid er: Jackie Quiroz RN) documented in this encounter Care Teams Head Of Commission Department Relationship Specialty Start Date End Date Vangie Valentine MD [address] [place] [id number] PCP - General Internal Medicine 06/11/19 No, Physician 05/18/18 documented as of this encounter
--- OUTSIDE RECORDS SUMMARY | 2024-05-14 16:51 | XMS_ITS | Data Portability ---
[facility] Organization [facility] Address [address] [place] [address] Care Team Providers Care Accountant Assistant Name Role Phone VANGIE TELLO Primary Care Provider Assessment No assessment recorded. Plan of Treatment Reminders Order Date Submit Date Provider Last Modified By Organization Details Last Modified Time Details Appointments None recorded. Lab noninvasi ve colorecta l cancer DNA + occult blood screening , QL, stool 2022 023 [place] [facility] (Cologuard Orders Only), [address], [address], [place], [address], 4 09:04:56 HbA1c (hemoglob in A1c), blood 2022 023 [facility] In-Office Order, Internal Use Only DO Not Attach Compendium DO Not Attach Compendium, Do Not Delete/merge, [id number] 3 16:28:51 HbA1c (hemoglob in A1c), blood 2022 023 [facility], [address], [address], [place], [address], 3 18:19:31 microalbu min/creat inine, mass ratio, urine 2022 023 [place] [facility], [address], [address], [place], [address], 3 18:23:48 CMP, serum or plasma 2022 023 [place] [facility], [address], [address], [place], [address], 3 18:23:48 lipid panel, serum 2022 023 [place] [facility], [address], [address], [place], [address], 3 18:23:48 noninvasi ve colorecta l cancer DNA + occult blood screening , QL, stool 2022 023 [place] [facility] (Cologuard Orders Only), [address], [address], [place], [address], 3 08:11:02 HbA1c (hemoglob in A1c), blood 2022 023 [facility] In-Office Order, Internal Use Only DO Not Attach Compendium DO Not Attach Compendium, Do Not Delete/merge, [id number] 3 17:30:48 Referral dermatolo gist referral 2022 023 [email or web address] [facility] Dermatology, [facility] [place], [address], 3 10:12:31 chiroprac tor referral - Please call patient for appointme nt, thanks! [address] [facility] [place], [facility], [place], [address], 3 09:20:00 dermatolo gist referral [address] Dermatology, [facility] [place], [address], 4 05:08:46 otolaryng ologist referral - Please call patient for appointme nt,thanks ! [address] - Otolaryngology (Ent), [address] [place] [address] , [address], [place], [address], 4 05:08:47 general surgeon referral - General surgery for hernia of abdomen, please call patient for appointme nt,thanks ! [address] General Surgery, [address], [address], [place], [address], 4 05:08:47 cardiolog ist referral - Please call him for appointme nt, thanks! [address] Cardiology, [address] [place], [address], 4 05:08:48 Procedures pulmonary stress test, simple (PROC) 2023 024 [facility] (Cardio Ekg), [address] [place], [address], 4 05:01:49 Surgeries None recorded. Imaging PFT, complete - W/ Post Bronchodi lator Spirometr y 2023 024 [facility] (Cardio Ekg), [address] [place], [address], 4 05:01:48 Medication Orders Viagra 100 mg tablet 2022 023 [facility]83647, [address], [place], [id number], 3 16:48:21 hydrocodo ne 10 mg-acetam inophen 325 mg tablet 2022 023 [facility] #66067, [address], [place], [id number], 3 17:00:31 pioglitaz one 30 mg tablet 2022 023 [facility] #04704, [address], [place], [id number], 3 17:22:06 simvastat in 40 mg tablet 2022 023 [facility] #14226, [address], [place], [id number], 3 16:48:21 magnesium oxide 400 mg (241.3 mg magnesium ) tablet 2022 023 [facility] #39739, [address], [place], [id number], 3 18:23:47 famotidin e 20 mg tablet 2022 023 [facility] #78903, [address], [place], [id number], 3 18:23:48 mupirocin 2 % topical ointment 2022 023 [facility] #78942, [address], [place], [id number], 3 18:23:46 aspirin 325 mg tablet,de layed release 2022 023 [facility] #74525, [address], [place], [id number], 3 18:23:50 pioglitaz one 45 mg tablet 2022 023 [facility] #21590, [address], [place], [id number], 3 18:23:47 ipratropi um 0.5 mg-albute rol 3 mg (2.5 mg base)/3 mL nebulizat ion soln 2022 023 [facility] #51118, [address], [place], [id number], 3 18:23:50 EpiPen 2-Mik 0.3 mg/0.3 mL injection , auto-inje ctor 2022 023 [facility] #07079, [address], [place], [id number], 3 18:23:49 ibuprofen 800 mg tablet 2022 023 [facility] #48692, [address], [place], [id number], 3 18:23:48 gabapenti n 800 mg tablet 2022 023 [facility] #22070, [address], [place], [id number], 3 18:23:49 Viagra 100 mg tablet 2022 023 [place] [facility], [address] [place] [address], [id number], 4 16:53:25 simvastat in 40 mg tablet 2022 023 [facility] #63230, [address], [place], [id number], 3 18:23:46 carvedilo l 6.25 mg tablet 2022 023 [facility] #27616, [address], [place], [id number], 3 18:23:49 digoxin 250 mcg (0.25 mg) tablet 2022 023 [facility] #55871, [address], [place], [id number], 3 18:23:47 diltiazem CD 240 mg capsule,e xtended release 24 hr 2022 023 [facility] #01130, [address], [place], [id number], 3 18:23:50 furosemid e 40 mg tablet 2022 023 [facility] #72770, [address], [place], [id number], 3 18:23:51 potassium chloride ER 10 mEq tablet,ex tended release 2022 023 [facility] #60217, [address], [place], [id number], 3 18:23:49 magnesium oxide 400 mg (241.3 mg magnesium ) tablet 2022 023 [facility] #80205, [address] [facility], [place], [place], [id number], 17:30:58 pioglitaz one 45 mg tablet 2022 023 [facility] #19729, [address] [facility], [place], [place], [id number], 3 17:31:00 ipratropi um 0.5 mg-albute rol 3 mg (2.5 mg base)/3 mL nebulizat ion soln 2022 [facility] #93873, [address] [facility] [facility], [place], [place], [id number], 11/15/202 3 17:30:59 Symbicort 160 mcg-4.5 mcg/actua tion HFA aerosol inhaler 2022 023 [facility] #04048, [address], [place], [place], [id number], 3 17:30:57 ibuprofen 800 mg tablet 2022 023 [facility] #52784, [address], [place], [place], [id number], 3 17:30:59 Viagra 100 mg tablet 2022 023 [facility] #45832, [address], [place], [place], [id number], 3 17:19:55 gabapenti n 800 mg tablet 2022 023 [facility] #19908, [address], [place], [place], [id number], 3 17:30:57 simvastat in 40 mg tablet 2022 023 [facility] #13262, [address], [place], [place], [id number], 3 17:20:01 potassium chloride ER 10 mEq tablet,ex tended release 2022 023 [facility] #95621, [address], [place], [place], [id number], 3 17:19:58 Zithromax Z-Mik 250 mg tablet 2022 023 [facility] #13320, [address], [place], [place], [id number], 3 19:09:21 famotidin e 20 mg tablet 2023 024 [facility] #98941, [address], [place], [place], [id number], 4 17:25:57 magnesium oxide 400 mg (241.3 mg magnesium ) tablet 2023 024 [facility] #41383, [address], [place], [place], [id number], 4 17:25:58 Viagra 100 mg tablet 2023 024 [facility] #04042, [address], [place], [place], [id number], 4 17:25:58 gabapenti n 800 mg tablet 2023 024 [facility] #01949, [address], [place], [place], [id number], 4 17:25:57 aspirin 325 mg tablet,de layed release 2023 024 [facility] #57793, [address], [place], [place], [id number], 4 17:25:58 pioglitaz one 45 mg tablet 2023 024 [facility] #74020, [address], [place], [place], [id number], 4 17:25:58 simvastat in 40 mg tablet 2023 024 [facility] #92808, [address], [place], [place], [id number], 4 17:25:59 albuterol sulfate HFA 90 mcg/actua tion aerosol inhaler 2023 024 [facility] #31130, [address], [place], [place], [id number], 4 17:25:57 ipratropi um 0.5 mg-albute rol 3 mg (2.5 mg base)/3 mL nebulizat ion soln 2023 024 [facility] #62174, [address] , [place], [place], [id number], 4 17:25:56 Symbicort 160 mcg-4.5 mcg/actua tion HFA aerosol inhaler 2023 024 [facility] #85896, [address] , [place], [place], [id number], 4 17:25:59 carvedilo l 6.25 mg tablet 2023 024 [facility] #81911, [address] , [place], [place], [id number], 4 17:25:55 digoxin 250 mcg (0.25 mg) tablet 2023 024 [facility] #03943, [address] , [place], [place], [id number], 4 17:25:55 diltiazem CD 240 mg capsule,e xtended release 24 hr 2023 024 [facility] #43351, [address] , [place], [place], [id number], 4 17:25:57 furosemid e 40 mg tablet 2023 024 [facility] #07542, [address], [place], [place], [id number], 17:25:58 potassium chloride ER 10 mEq tablet,ex tended release 2023 [facility] #08910, [address], [place], [place], [id number], 17:25:56 Patient TargetsNo targets recorded. Patient Instructions Encounter Date Encounter Id Patient Instructions Last Modified By Organization Details Last Modified Time 06/21/2022 [id number] rash: care instructions sieh Not available 06/21/2022 16:28:52 healthy upper back: exercises si Not available 06/21/2022 16:28:52 heart failure: care instructions [facility] Not available 06/21/2022 16:48:06 learning about heart failure sieh Not available 06/21/2022 16:48:06 02/07/2023 [id number] learning about type 2 diabetes sieh Not available 02/07/2023 18:23:32 type 2 diabetes: care instructions [facility] Not available 02/07/2023 18:23:33 A healthy lifestyle: [facility] 02/07/2023 18:23:33 heart failure: care [facility] Not available 02/07/2023 18:23:33 learning about heart failure sieh Not available 02/07/2023 18:23:33 rash: care instructions sieh Not available 02/07/2023 18:23:33 04/11/2023 [id number] influenza (flu) vaccine: care instructions sieh Not available 04/11/2023 18:37:40 hernia: care instructions sieh Not available 04/11/2023 16:59:50 07/25/2023 [id number] hernia: care instructions sieh Not available 07/25/2023 17:41:58 07/26/2023 [id number] sleep apnea: car e instructions ajamous Not available 07/26/2023 12:13:26 BIPAP compliance* ATHENAFAX Not availabl e 07/26/2023 15:45:14 dizziness: care instructions ajamous Not available 07/26/2023 12:13:27 When You Want to Lose Weight: Care Instructions ajamous Not available 07/26/2023 12:13:26 learning about hypoxemia ajamous Not available 07/26/2023 12:13:26 secondhand smoke exposure ajamous Not available 07/26/2023 12:13:26 Reason for Referral Chiropractor Referral for Th oracic back pain Please call patient for appointment, thanks! Referring Physician: Vangie Tello [facility], Encounter Date: 06/21/2022 Desk Pens Assembler Referral for E ruption Referring Physician: Vangie Tello [facility], Encounter Date: 06/21/2022 Desk Pens Assembler Referral for E ruption Referring Physician: Vangie Tello [facility], Encounter Date: 02/07/2023 General Surgeon Referral for Hernia of anterior abdominal wall General surgery for hernia of abdomen, please call patient for appointment,thanks! Referring Physician: Vangie Tello [facility], Encounter Date: 04/11/2023 Supervisor Of Officials Referral fo r Impacted cerumen in right ear Please call patient for appointment,thanks! Referring Physician: Vangie Tello [facility], Encounter Date: 04/11/2023 Manager Corporate Strategy Referral for Ch ronic atrial fibrillation Please call him for appointment, thanks! Referring Physician: Vangie Tello [facility], Encounter Date: 07/25/2023 Results Created Date Observation Date Name Description Value Unit Range Abnormal Flag Note LastModifiedBy Organization Detail LastModifiedTime 06/21/2023 COLOG UARD cologuard result Cancel led - Order d not applic able Not Available [facility] (Cologuard Orders Only) [address], [place], [address], 06/21/2023 09:04:55 02/08/2023 COLOG UARD cologuard result Cancel led - Duplic ate Order not applic able Not Available [facility] (Cologuard Orders Only) [address], [place], [address], 02/08/2023 08:11:02 06/23/2022 COLOG UARD cologuard result Cancel led - Duplic ate Order not applic able Not Available [facility] (Cologuard Orders Only) [address], [place], [address], 06/23/2022 11:41:44 05/24/20 22 05/25/2022 DIABE ZORAN PATIE NT EDUCA TION pdf . Not Available [facility] ([facility]) [address] [facility], [place], [address], 05/25/2022 08:14:15 05/24/20 22 05/25/2022 HEMOG LOBIN A1C hemoglobin A1C 5.6 % 4.8-5. 6 Predi abete s: 5.7 - 6.4 Diabe zoran: >6.4 Glyce kai contr ol for adult s with diabe zoran: <7.0 Not Available [facility] ([facility]) [address] [place], [address], 05/25/2022 08:14:15 05/24/20 22 05/25/2022 MAGNE SIUM magnesium 1.8 mg/dL 1.6-2. 3 Not Available [facility] ([facility]) [address] [place], [address], 05/25/2022 08:14:16 05/24/20 22 05/25/2022 HBSAG SCREE N HBsAg screen Negati ve negati ve Not Available [facility] ([facility]) [address] [facility], [place], [address], 05/25/2022 08:14:16 05/24/20 22 05/25/2022 HEPAT ITIS B SURF AB QUANT hepatitis B surf Ab quant <3.1 mIU/m L immuni ty>9.9 below low normal Statu s of Immun ity Anti- HBs Level ----- ----- ----- --- ----- ----- ---- Incon siste nt with Immun ity 0.0 - 9.9 Consi stent with Immun ity >9.9 Not Available [facility] ([facility]) [address] [facility], [place], [address], 05/25/2022 08:14:17 05/24/2005/25/2022 PROST ATE-S PECIF IC AG prostate specific Ag 1.9 NG/mL 0.0-4. 0 Jayne ECLIA metho dolog y. Accor ding to the Ameri can Urolo gical Assoc iatio n, Serum PSA shoul d decre ase and remai n at undet ectab le level s after radic al prost atect herberth. The AUA defin es bioch emica l recur rence as an initi al PSA value 0.2 ng/mL or great er follo wed by a subse quent confi rmato ry PSA value 0.2 ng/mL or great er. Value s obtai katelyn with diffe rent assay metho ds or kits canno t be used inter ivy eably . Resul ts canno t be inter prete d as absol orutsararmiut evide nce of the prese nce or absen ce of felipe mendoza se. Not Available [facility] ([facility]) [address] [facility], [place], [address], 05/25/2022 08:14:18 05/24/20 22 05/25/2022 HIV AB/P2 4 AG WITH REFLE X HIV Ab/P24 Ag screen Non Reacti ve nonrea ctive HIV Negat javier HIV-1 /HIV- 2 antib odies and HIV-1 p24 antig en were NOT detec dolly. There is no labor atory evide nce of HIV infec tion. Not Available [facility] ([facility]) [address] [facility], [place], [address], 05/25/2022 08:14:18 06/21/19 23 06/21/2022 HbA1c (hemo globi n A1c), blood HbA1c 5.3% Not Available In-Office Order Internal Use Only DO Not Attach Compendium DO Not Attach Compendium, Do Not Delete/merge, [id number] 06/21/2022 16:21:07 04/11/20 23 04/11/2023 HbA1c (hemo globi n A1c), blood HbA1c 5.5% Not Available In-Office Order Internal Use Only DO Not Attach Compendium DO Not Attach Compendium, Do Not Delete/merge, [id number] 04/11/2023 17:30:33 09/26/19 24 09/24/2023 CPAP downl oad* No observ ation record ed. [facility] ([facility]) [address] [facility] [place], [address], 10/01/2023 12:01:21 Result Notes None recorded. Problems Name Problem SNOMED Code Status Onset Date Resolution Date Notes Provider Name and Address Organization Details Recorded Time Diabetes mellitus 80962956 Active 2017 Not Available [facility] 4 18:42:20 Chronic congestive heart failure 32425640 Active 2018 Not Available [facility] 4 18:42:20 Upper respiratory infection 41645864 Active 2019 Not Available [facility] 4 18:42:20 Problem Notes None recorded. Procedures Surgical History Date Name Laterality Status Provider Name and Address Organization Details Recorded Time Appendectomy completed ROSALINDA Cope [facility] 12/18/2016 14:58:41 Imaging Results Imaging Date Name Status LastModified by Organiz ation Details LastModified Time 09/24/2023 CPAP download* completed [facility] ([facility]) [address] [place], [address], 10/01/2023 12:01:21 Procedure Notes None recorded. Medical Equipment None Reported. Allergies Allergen ID Allergen Name Allergen Category Reaction Reaction Severity Criticality Documentation Date Start Date Code Code System Note Provider Name and Address Organization Details Recorded Time 582019 glimepiri de medicatio n dizziness Not available Not available 01/16/2022 54612 RxNorm ROSALINDA Cope, [place] - [place] 2 17:20:53 Medications Name Sig Start Date Stop Date Status Note LastModified by Organization Details LastModified Time Prescript ion - Prior Authoriza tion Request active Not Available Not Available Not Available cyclobenz aprine 10 mg tablet TAKE 1 TABLET BY MOUTH THREE TIMES DAILY completed Not Available Not Available Not Available furosemid e 40 mg tablet TAKE 1 TABLET BY MOUTH EVERY DAY as needed. 2023 active Not Available Not Available Not Avai lable terbinafi ne HCl 1 % topical cream APPLY TO THE AFFECTED AND SURROUND ING AREAS OF SKIN BY TOPICAL ROUTE ONCE DAILY 02/07 completed Not Available Not Available Not Available metformin 500 mg tablet 09/26 completed Not Available Not Available Not Available carvedilo l 6.25 mg tablet TAKE 1 TABLET BY MOUTH TWICE DAILY active Not Available Not Available No t Available gabapenti n 600 mg tablet TAKE 1 TABLET(S ) TWICE A DAY BY ORAL ROUTE DIRECTED FOR 30 DAYS. 07/16 completed Not Available Not Available Not Available ipratropi um 0.5 mg-albute rol 3 mg (2.5 mg base)/3 mL nebulizat ion soln INHALE ONE VIAL VIA NEBULIZE R FOUR TIMES DAILY 2023 active Not Available Not Available Not Avai lable ketoconaz ole 2 % shampoo APPLY TO THE AFFECTED AREA(S), LATHER, LEAVE IN PLACE FOR 5 MINUTES, AND THEN RINSE OFF WITH WATER BY TOPICAL ROUTE ONCE DAILY active Not Available Not Available No t Available clindamyc in HCl 300 mg capsule TAKE ONE CAPSULE BY MOUTH FOUR TIMES DAILY FOR 10 DAYS 07/07 completed Not Available Not Available Not Available azithromy rubina 250 mg tablet TAKE 2 TABLETS (500 MG) BY ORAL ROUTE ONCE DAILY FOR 1 DAY THEN 1 TABLET (250 MG) BY ORAL ROUTE ONCE DAILY FOR 4 DAYS after meal. 05/02 completed Not Available Not Available Not Available aspirin 325 mg tablet TAKE 1 TABLET BY MOUTH DAILY after meaql. 07/07 completed Not Available Not Available Not Available ibuprofen 800 mg tablet Take 1 tablet(s ) as needed by oral route after meals for 90 days. active needs new pcp Not Available Not Available Not Available metoprolo l succinate ER 50 mg tablet,ex tended release 24 hr TAKE 1 TABLET BY MOUTH EVERY DAY active Not Available Not Available No t Available Ativan 1 mg tablet Take 1 tablet as needed by oral route as directed for 1 day. 03/10 completed Not Available Not Available Not Available diltiazem CD 240 mg capsule,e xtended release 24 hr TAKE 1 CAPSULE BY MOUTH EVERY DAY 2023 active Not Available Not Available Not Avai lable meloxicam 15 mg tablet TAKE 1 TABLET BY MOUTH EVERY DAY WITH FOOD 02/07 completed Not Available Not Available Not Available naltrexon e 50 mg tablet Take 1 tablet every day by oral route as directed for 30 days. 06/25 completed Not Available Not Available Not Available prednison e 20 mg tablet 04/11 completed Not Available Not Available Not Available Viagra 50 mg tablet Take 1 tablet every day by oral route as needed for 20 days. 06/21 completed Not Available Not Available Not Available gabapenti n 400 mg capsule 07/16 completed Not Available Not Available Not Available Wellbutri n SR 150 mg tablet, 12 hr sustained -release Take 1 tablet twice a day by oral route as directed for 30 days. 09/26 completed Not Available Not Available Not Available diltiazem ER 240 mg capsule,2 4 hr,extend ed release Take 1 capsule every day by oral route as directed for 30 days. 10/06 completed Not Available Not Available Not Available pioglitaz one 45 mg tablet Take 1 tablet every day by oral route after meals for 90 days. 2023 active Not Available Not Available Not Avai lable penicilli n V potassium 500 mg tablet Take 1 tablet every 6 hours by oral route as directed for 10 days. 08/27 completed Not Available Not Available Not Available potassium chloride ER 10 mEq tablet,ex tended release active needs A new PCP Not Available Not Available Not Available acetamino phen 300 mg-codein e 30 mg tablet TAKE 1 TO 2 TABLETS BY MOUTH EVERY 6 HOURS PN FOR PAIN 06/21 completed Not Available Not Available Not Available digoxin 250 mcg (0.25 mg) tablet TAKE 1 TABLET BY MOUTH DAILY active Not Available Not Available No t Available ciproflox acin 500 mg tablet Take 1 tablet every 12 hours by oral route after meals for 5 days. 10/14 /2019 completed Not Available Not Available Not Available sulfameth oxazole 800 mg-trimet hoprim 160 mg tablet TAKE 1 TABLET BY MOUTH EVERY 12 HOURS AFTER MEALS FOR 7 DAYS 06/21 completed Not Available Not Available Not Available hydrocodo ne 10 mg-acetam inophen 325 mg tablet TAKE 1 TABLET BY MOUTH TWICE DAILY FOR 10 DAYS NEEDED 04/11 completed Not Available Not Available Not Available tramadol 50 mg tablet 10/06 completed Not Available Not Available Not Available spironola ctone 25 mg tablet Take one tablet by mouth once daily. 08/27 completed Not Available Not Available Not Available amoxicill in 500 mg tablet 08/27 completed Not Available Not Available Not Available simvastat in 40 mg tablet TAKE 1 TABLET BY MOUTH EVERY DAY AFTER SUPPER active Not Available Not Available No t Available glimepiri de 2 mg tablet TAKE ONE TABLET BY MOUTH TWICE DAILY WITH FOOD 10/11 completed Not Available Not Available Not Available glimepiri de 1 mg tablet 03/10 completed Not Available Not Available Not Available ketorolac 10 mg tablet take one tablet by mouth every 6 hours 03/10 completed Not Available Not Available Not Available potassium chloride ER 20 mEq tablet,ex tended release(p art/cryst ) 10/02 completed Not Available Not Available Not Available famotidin e 20 mg tablet Take 1 tablet twice a day by oral route as directed for 90 days. 2023 active Not Available Not Available Not Avai lable magnesium oxide 400 mg (241.3 mg magnesium ) tablet Take 1 tablet every day by oral route as directed for 90 days. 2023 active Not Available Not Available Not Avai lable lorazepam 0.5 mg tablet 03/10 completed Not Available Not Available Not Available aspirin 325 mg tablet,de layed release Take 1 tablet every day by oral route as directed for 90 days. 2023 active Not Available Not Available Not Avai lable gabapenti n 800 mg tablet TAKE 2 TABLETS BY MOUTH TWICE DAILY DIRECTED active Not Available Not Available No t Available hydrocodo ne 7.5 mg-acetam inophen 325 mg tablet 10/06 completed Not Available Not Available Not Available cephalexi n 500 mg capsule TAKE 1 CAPSULE BY MOUTH EVERY 6 HOURS FOR 1 WEEK active Not Available Not Available No t Available Desenex 2 % topical powder APPLY TO THE AFFECTED AREA(S) BY TOPICAL ROUTE 2 TIMES PER DAY IN THEMORNI NG AND EVENING 06/21 completed patient states he still uses it as needed Not Available Not Available Not Available triamcino lone acetonide 0.1 % topical ointment APPLY TOPICALL Y TO THE AFFECTED AREA TWICE DAILY active Not Available Not Available No t Available lisinopri l 10 mg tablet 09/26 completed Not Available Not Available Not Available glimepiri de 4 mg tablet TAKE 2 TABLETS BY MOUTH TWICE DAILY WITH MEALS 01/16 completed Not Available Not Available Not Available gabapenti n 300 mg capsule Take 1 capsule twice a day by oral route as directed for 30 days. 03/10 completed Not Available Not Available Not Available mupirocin 2 % topical ointment APPLY TO THE AFFECTED AREA THREE TIMES DAILY active Not Available Not Available No t Available zolpidem 5 mg tablet 10/02 completed Not Available Not Available Not Available furosemid e 20 mg tablet 12/20 completed Not Available Not Available Not Available gabapenti n 100 mg capsule Take 3 capsules every day by oral route. 07/22 completed Not Available Not Available Not Available Viagra 100 mg tablet Take 1 TABLET BY MOUTH 1 HOUR PRIOR TO SEXUAL ACTIVITY DIRECTED , NOT TO EXCEED 1 IN 24 HOURS. active Not Available Not Available No t Available epinephri ne 0.3 mg/0.3 mL injection , auto-inje ctor Take 1 auto as needed by injectio n route as needed for 3 days. active Not Available Not Available No t Available ibuprofen 600 mg tablet 08/27 completed Not Available Not Available Not Available zolpidem 10 mg tablet Take 1 tablet every day by oral route for 1 day. 03/10 completed Not Available Not Available Not Available methylpre dnisolone 4 mg tablets in a dose pack FOLLOW PACKAGE DIRECTIO NS 06/21 completed Not Available Not Available Not Available Enteric Coated Aspirin 81 mg tablet,de layed release Take 1 tablet every day by oral route as directed for 30 days. 2019 active Not Available Not Available Not Avai lable albuterol sulfate HFA 90 mcg/actua tion aerosol inhaler INHALE TWO PUFFS BY MOUTH EVERY FOUR HOURS NEEDED active Not Available Not Available No t Available pioglitaz one 30 mg tablet TAKE 1 TABLET BY MOUTH EVERY DAY WITH A MEAL 04/11 completed Not Available Not Available Not Available ketoconaz ole 2 % topical cream APPLY TOPICALL Y TO THE AFFECTED AREA EVERY DAY 06/21 completed Not Available Not Available Not Available metformin ER 500 mg tablet,ex tended release 24 hr TAKE ONE TABLET BY MOUTH TWICE DAILY 10/06 completed Not Available Not Available Not Available clotrimaz ole 1 % topical cream Apply 1 applicat ion 3 times a day by topical route as directed for 30 days. 03/10 completed Not Available Not Available Not Available naproxen 500 mg tablet TAKE 1 TABLET BY MOUTH TWICE DAILY WITH MEALS 02/07 completed Not Available Not Available Not Available potassium chloride ER 10 mEq tablet,ex tended release(p art/cryst ) 10/06 completed Not Available Not Available Not Available Januvia 100 mg tablet 09/26 completed Not Available Not Available Not Available diclofena c 1 % topical gel APPLY 2 GRAM TO THE AFFECTED AREA(S) BY TOPICAL ROUTE 4 TIMES PER DAY 03/10 completed Not Available Not Available Not Available Combivent Respimat 20 mcg-100 mcg/actua tion solution for inhalatio n 1 puff 4 times daily 03/10 completed Not Available Not Available Not Available True Metrix Glucose Test Strip Use to test blood sugar levels once daily. active Not Available Not Available No t Available Incruse Ellipta 62.5 mcg/actua tion powder for inhalatio n INHALE 1 PUFF BY MOUTH EVERY DAY active Not Available Not Available No t Available OneTouch Ultra Blue Test Strip active Not Available Not Available Not Available OneTouch Ultra2 Meter active Not Available Not Available Not Available Breyna 160 mcg-4.5 mcg/actua tion HFA aerosol inhaler INHALE 2 PUFFS BY MOUTH TWICE DAILY active Not Available Not Available No t Available Vitals Date Recorded Body height Body mass index (BMI) Body weight Oxygen saturation Oxygen saturation in Arterial blood by Pulse oximetry Heart rate Systolic blood pressure Diastolic blood pressure Provider Name and Address Organization Details Last Updated DateTime 3 182.88 cm 40.4 kg/m2 313013. 53 g 93 % 93 % 95 /min 126 mm[Hg] 80 mm[Hg] Anya Kraft MA [facility] 3 15:57:27 Date Recorded Body height Body mass index (BMI) Body weight Heart rate Oxygen saturation Oxygen saturation in Arterial blood by Pulse oximetry Systolic blood pressure Diastolic blood pressure Provider Name and Address Organization Details Last Updated DateTime 3 182.88 cm 38.7 kg/m2 775506. 83 g 130 /min 98 % 98 % 143 mm[Hg] 77 mm[Hg] Taya Bryson MA [facility] 3 17:27:13 Date Recorded Body height Body mass index (BMI) Body weight Heart rate Oxygen saturation Oxygen saturation in Arterial blood by Pulse oximetry Systolic blood pressure Diastolic blood pressure Provider Name and Address Organization Details Last Updated DateTime 3 182.88 cm 40.1 kg/m2 099218. 34 g 93 /min 95 % 95 % 142 mm[Hg] 86 mm[Hg] Taya Bryson MA [facility] 3 16:26:09 Date Recorded Body height Body mass index (BMI) Body weight Heart rate Oxygen saturation Oxygen saturation in Arterial blood by Pulse oximetry Systolic blood pressure Diastolic blood pressure Provider Name and Address Organization Details Last Updated DateTime 4 182.88 cm 39.1 kg/m2 177786. 6 g 91 /min 95 % 95 % 142 mm[Hg] 80 mm[Hg] Taya Bryson MA [facility] 4 16:57:44 Date Recorded Body height Body mass index (BMI) Body weight Body temperature Respiratory rate Oxygen saturation Oxygen saturation in Arterial blood by Pulse oximetry Heart rate Systolic blood pressure Diastolic blood pressure Provider Name and Address Organization Details Last Updated DateTime 4 182.88 cm 39.2 kg/m2 941758. 19 g 98 [degF] 18 /min 96 % 96 % 88 /min 124 mm[Hg] 78 mm[Hg] Eufemia Cali LPN [facility] 4 11:57:42 Social History Question Answer Notes LastModified by Organizat ion Details LastModified Time Tobacco Smoking Status Never Smoker Sandro Hernandez MA null, [facility] 12/18/2016 15:01:06 Do You Have An Advance Directive? No Information not available 04/11/2023 What Is Your Level Of Alcohol Consumption? None Former Drinker Information not available 12/18/2016 Are You Blind Or Do You Have Difficulty Seeing? Yes Information not available 04/11/2023 What Is Your Level Of Caffeine Consumption? Occasional Information not available 04/11/2023 In The 14 Days Before Symptom Onset, Have You Had Close Contact With A Laboratory-confir med COVID-19 While That Case Was Ill? No Information not available 07/26/2023 In The 14 Days Before Symptom Onset, Have You Had Close Contact With A Person Who Is Under Investigation For COVID-19 While That Person Was Ill? No Information not available 07/26/2023 Have You Been To An Area Known To Be High Risk For COVID-19? No Information not available 07/26/2023 Are You Currently Employed? Yes Information not available 04/11/2023 Are You Deaf Or Do You Have Serious Difficulty Hearing? Yes Hard Of Hearing Information not available 04/11/2023 What Type Of Diet Are You Following? REGULAR Information not available 04/11/2023 What Is The Highest Grade Or Level Of School You Have Completed Or The Highest Degree You Have Received? 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 07/26/2023 Information not available 07/26/2023 What Is Your Relationship Status? Single Information not available 04/11/2023 Do You Use Your Seat Belt Or Car Seat Routinely? Yes Information not available 04/11/2023 Do You Have Smoke And Carbon Monoxide Detectors In Your Home? Yes Information not available 11/03/2020 Do You Feel Stressed (tense, Restless, Nervous, Or Anxious, Or Unable To Sleep At Night)? [id number] Information not available 04/11/2023 Do You Use Any Illicit Or Recreational Drugs? No Information not available 04/11/2023 Do You Use Sunscreen Routinely? No Information not available 11/03/2020 Do You Or Have You Ever Used Any Other Forms Of Tobacco Or Nicotine? No [email or web address] Information not available 06/21/2022 Sex: Male Functional Status Question Answer Note LastModified by Organizat ion Details LastModified Time Are you able to care for yourself? Yes Information not available 04/11/2023 What is your exercise level? Occasional Information not available 04/11/2023 Mental Status None recorded. Family History Relationship Description Onset Age of this Age Resolved Age Notes LastModified by Organization Details LastModified Time Brother Alcohol abuse Not available 12/18 14:59:27 Brother Asthma Not availabl e 12/18/2016 14:59:45 Brother Hypertensive disorder Not available 12/18 15:00:38 Brother Hypercholest erolemia Not available 12/18 15:00:53 Father Alcohol abuse Not available 12/18 14:59:27 Father Hypertensive disorder Not available 12/18 15:00:38 Father Hypercholest erolemia Not available 12/18 15:00:53 Mother Alcohol abuse Not available 12/18 14:59:27 Mother Asthma Not available 12/18/2016 14:59:45 Mother Disorder of thyroid gland Not available 12/18 14:59:54 Mother Heart disease Not available 12/18 15:00:06 Medical History Condition Response Diabetes Y Muscle, Joint, or Bone Problems Y Heart Attack (OK) Y High Blood Pressure Y Kidney or Bladder Problems Y Asthma Y High Cholesterol Y Immunizations Vaccine Type Date Status Note Provider Nam e and Address Organization Details Recorded Time COVID-19, mRNA, LNP-S, PF, 30 mcg/0.3 mL dose completed Not Available [facility] 07/02/2023 18:42:20 SARS-COV-2 (COVID-19) vaccine, UNSPECIFIED 1 completed Not Available [facility] 07/02/2023 18:42:20 Influenza, split virus, quadrivalent, preservative 9 completed Not Available [facility] 06/14/2019 02:38:45 Influenza, split virus, quadrivalent, preservative 0 completed Vj Atkins LPN null, [place] - [facility] 07/03/2019 11:52:46 COVID-19, mRNA, LNP-S, PF, 30 mcg/0.3 mL dose, deep-sucrose 2 completed Holly Peter MA null, [place] [facility] 01/16/2022 15:46:41 Influenza, split virus, quadrivalent, PF 3 completed Vangie Tello MD Attn: Accounting[address] [place], [address], [place] [facility] 04/11/2023 16:53:09 tetanus toxoid, unspecified formulation 7 completed Not Available [facility] 07/02/2023 18:42:20 Past Encounters Encounter ID Performer Location Encounter Start Date Encounter Closed Date Diagnosis/Indication Diagnosis SNOMED-CT Code Diagnosis ICD10 Code [id number] Vangie Tello MD [facility] (Adult Med) [address] [place] [phone] 0 12/18/2016 14:44:41 12/18/2016 16:45:09 Type 2 diabetes mellitus 53231991 E11.40 Diabetic p eripheral neuropathy 374077584 E11.40 Body mass index 40+ - severely obese 927957114 Z68.42 Chronic ob structive pulmonary disease 80710264 J44.9 Umbilical hernia 4052621 07 K42.9 Screening for malignant neoplasm of colon 160287186 Z12.11 Screening for malignant neoplasm of prostate 010102481 Z12.5 Coronary atherosclerosis 722409814 I25.83 [id number] Vangie Tello MD [facility] (Adult Med) [address] [place] [address] 32024-862 0 09/26/2017 12:08:48 09/26/2017 14:02:45 Diabetes mellitus 65299180 E11.40 Chronic co ngestive heart failure 95250858 I50.9 Diabetic p eripheral neuropathy 866168047 E11.40 Exposure t o viral hepatitis 781198400 Z20.5 [id number] Michelle Goodman MD [facility] [address] [place] [address] 06/17/2018 09:49:13 06/18/2018 15:36:46 Pulmonary hypertension 07938064 I27.20 Dyspnea on exertion 6084 5006 R06.09 Obstructiv e sleep apnea syndrome 80408627 G47.33 Tolerant non-smoker 8773 9003 Z87.891 Edema of l ower extremity 817354760 R60.0 Hypoxemia 267462187 R09. 02 [id number] Michelle Goodman MD [facility] [address] [place] [address] 07/18/2018 11:25:15 07/18/2018 15:15:05 Obstructive sleep apnea syndrome 44684589 G47.33 Dyspnea on exertion 6084 5006 R06.09 Restrictiv e lung disease 65691481 J98.4 Tolerant non-smoker 8773 9003 Z87.891 Edema of l ower extremity 878250559 R60.0 Hypoxemia 632629751 R09. 02 History of exposure to second hand smoke 544975900 Z77.22 Moderate p ersistent asthma 601952900 J45.40 [id number] Vangie Tello MD [facility] (Adult Med) [address] [place] [address]-445 0 07/22/2018 12:36:17 07/23/2018 10:17:25 Diabetes mellitus 66939234 E11.40 Type 2 janusz betes mellitus 23828916 E11.40 Secondary peripheral neuropathy 124979 G63 Asthma 701348663 J45.90 9 Chronic co ngestive heart failure 97888286 I50.9 Chronic at rial fibrillation 174376253 I48.2 Restrictiv e lung disease 23741491 J98.4 Dyslipidem ia due to type 2 diabetes mellitus 6237906244 02 E78.5 Hernia of anterior abdominal wall 205336047 K43.9 [id number] Vangie Tello MD [facility] (Adult Med) [address] [place] [address]55[address] 0 10/02/2018 15:51:24 10/03/2018 15:11:25 Type 2 diabetes mellitus 55928220 E11.40 Diabetic p eripheral neuropathy 090216594 E11.40 Chronic ob structive pulmonary disease 26207569 J44.9 Tinea corporis 67798275 B35.4 [id number] Michelle Goodman MD [facility] [address] [place] [address] 10/24/2018 11:35:36 10/25/2018 14:37:28 Obstructive sleep apnea syndrome 99048116 G47.33 Periodic l imb movement disorder 666346549 G47.61 Dyspnea on exertion 6084 5006 R06.09 Restrictiv e lung disease 35639944 J98.4 Tolerant non-smoker 8773 9003 Z87.891 Edema of l ower extremity 551922646 R60.0 Hypoxemia 736747849 R09. 02 Moderate p ersistent asthma 646606617 J45.40 History of exposure to second hand smoke 716365397 Z77.22 Diabetic p eripheral neuropathy 227347371 E11.40 [id number] Vangie Tello MD [facility] (Adult Med) [address] [place] [address] 89021-004 0 11/06/2018 15:22:10 11/06/2018 16:58:03 Type 2 diabetes mellitus 07410554 E11.40 Diabetic p eripheral neuropathy 887415496 E11.40 Chronic back pain 452958 002 M54.16 Hernia of anterior abdominal wall 265992878 K43.9 Chronic ob structive pulmonary disease 54478682 J44.9 Diabetes mellitus 249321 09 E11.40 Dyslipidem ia due to type 2 diabetes mellitus 2990595608 02 E78.5 Disorder of skin 6915006 5 L98.9 [id number] SUMEET MCKEON MD [facility] [address] [place] [address] 11/22/2018 11:15:02 11/25/2018 11:43:00 Hernia of anterior abdominal wall 966802777 K43.9 Morbid obesity 901353227 E66.01 [id number] MD [facility] (Adult Med) [address] [place] [address]25[address] 0 12/04/2018 11:42:11 12/04/2018 12:36:51 Nephropathy screening 917144576 Z13.89 Acute low back pain 2788 77830 M54.5 [id number] Melissa Myrick [facility] [address] [place] [address] 2 03/06/2019 10:38:24 03/06/2019 16:02:09 Obstructive sleep apnea syndrome 58827854 G47.33 Hypoxemia 739667556 R09. 02 Periodic l imb movement disorder 093506600 G47.61 Dyspnea on exertion 6084 5006 R06.09 Restrictiv e lung disease 14382547 J98.4 Tolerant non-smoker 8773 9003 Z87.891 Moderate p ersistent asthma 585234365 J45.40 Diabetic p eripheral neuropathy 752803877 E11.40 History of exposure to second hand smoke 282260826 Z77.22 Dizziness 662659059 R42 [id number] MD [facility] (Adult Med) [address] [place] [address] 0 03/10/2019 16:51:00 03/10/2019 18:16:54 Dyspnea on exertion 73699578 R06.09 Generalize d abdominal pain 310462477 R10.84 [id number] Vangie Tello MD [facility] (Adult Med) [address] [place] [address] 0 04/10/2019 15:28:55 04/11/2019 12:28:48 Chronic low back pain 817569397 M54.5 Chronic di sease of skin 885883304 L98.9 Administra tion of influenza vaccine 20773714 Z23 [id number] MD [facility] (Adult Med) [address] [place] [address]25-[address] 0 05/06/2019 16:29:56 05/07/2019 10:17:38 Acute respiratory infections 007951341 J22 [id number] MD [facility] (Adult Med) [address] [place] [address] 58978-230 0 06/25/2019 15:47:35 06/25/2019 17:14:35 Chronic low back pain 246263447 M54.5 Hearing disorder 5912997 05 H91.90 Cramping pain 394974812 R52 Diabetic p eripheral neuropathy 868718873 E11.40 Administra tion of influenza vaccine 90578614 Z23 [id number] MD [facility] (Adult Med) [address] [place] [address]2876-590 0 07/16/2019 16:43:15 07/16/2019 17:46:11 Cellulitis 311890280 L03.90 [id number] MD [facility] (Adult Med) [address] [place] [address] 98775-884 0 08/26/2019 11:47:39 08/26/2019 17:12:55 Upper respiratory infection 19192945 J06.9 [id number] Michelle Goodman MD [facility] [address] [address] 08/28/2019 09:17:52 09/15/2019 13:49:10 Obstructive sleep apnea syndrome 67777747 G47.33 Hypoxemia 033135847 R09. 02 Periodic l imb movement disorder 554950340 G47.61 Dyspnea on exertion 6084 5006 R06.09 Restrictiv e lung disease 46899273 J98.4 Tolerant non-smoker 8773 9003 Z87.891 Moderate p ersistent asthma 801956734 J45.40 Diabetic p eripheral neuropathy 233494124 E11.40 History of exposure to second hand smoke 051247926 Z77.22 Dizziness 103936262 R42 [id number] MD [facility] (Adult Med) [address] [place] [address] 47978[address]451 0 10/06/2019 13:55:45 10/07/2019 14:16:55 Chronic congestive heart failure 51884014 I50.9 Diabetes mellitus 293835 09 E11.40 Diabetic p eripheral neuropathy 322484400 E11.40 Dyslipidem ia due to type 2 diabetes mellitus 5063665249 02 E78.5 Moderate p ersistent asthma 766412399 J45.40 Tinea corporis 80312448 B35.4 Degenerati ve joint disease involving multiple joints 814733883 M15.9 [id number] MD [facility] (Adult Med) [address] [place] [address] 70940-057 0 10/13/2019 09:37:54 10/14/2019 13:40:05 Hypokalemia 82281747 E87.6 [id number] Vangie Tello MD [facility] (Adult Med) [address] [place] [address] 25822[address]802 0 10/06/2020 12:32:53 10/07/2020 15:31:55 Chronic congestive heart failure 25879188 I50.9 Diabetes mellitus 569344 09 E11.40 Chronic ob structive pulmonary disease 78062465 J44.9 [id number] Vangie Tello MD [facility] (Adult Med) [address] [place] [address] 98702-852 0 10/11/2020 09:44:00 10/12/2020 10:42:19 Chronic congestive heart failure 14148258 I50.9 Diabetes mellitus 865396 09 E11.40 Chronic ob structive pulmonary disease 47733152 J44.9 Diabetic p eripheral neuropathy 032283406 E11.40 Dyslipidem ia due to type 2 diabetes mellitus 0189032530 02 E78.5 [id number] Vangie Tello MD [facility] (Adult Med) [address] [place] [address] 69662-163 0 11/03/2020 12:18:43 11/04/2020 11:30:52 Chronic kidney disease stage 2 657095339 N18.2 Chronic co ngestive heart failure 31613125 I50.9 Diabetes mellitus 547300 09 E11.40 Diabetic p eripheral neuropathy 558933521 E11.40 [id number] Michelle Goodman MD [facility] [address] [address] 11/04/2020 11:44:29 11/04/2020 13:54:33 Moderate persistent asthma 064145384 J45.40 Restrictiv e lung disease 01082183 J98.4 Hypoxemia 771371901 R09. 02 Obstructiv e sleep apnea syndrome 13847942 G47.33 Morbid obesity 448425457 E66.01 Tolerant non-smoker 8773 9003 Z87.891 Dyspnea on exertion 6084 5006 R06.09 Diabetic p eripheral neuropathy 810257662 E11.40 Periodic l imb movement disorder 814897810 G47.61 Dizziness 966400382 R42 Non-smoker 's second hand smoke syndrome 373089004 J98.4 [id number] Michelle Goodman MD [facility] [address] [place] [address]209[address] 2 11/11/2020 09:41:14 11/12/2020 11:24:45 Chest wall pain 859605968 R07.89 Moderate p ersistent asthma 239367776 J45.40 Tolerant non-smoker 8773 9003 Z87.891 Obstructiv e sleep apnea syndrome 34128801 G47.33 Restrictiv e lung disease 07519682 J98.4 Morbid obesity 686528879 E66.01 Hypoxemia 090391612 R09. 02 Dyspnea on exertion 6084 5006 R06.09 Diabetic p eripheral neuropathy 956084046 E11.40 Periodic l imb movement disorder 844331388 G47.61 Dizziness 112068849 R42 [id number] Vangie Tello MD [facility] (Adult Med) [address] [place] [address] 12895-639 0 06/03/2021 15:42:21 06/06/2021 13:11:47 Acute laryngitis 5432010 J04.0 Erectile dysfunction 860 859032 F52.21 Pityriasis versicolor 56 301193 B36.0 [id number] Vangie Tello MD [facility] (Adult Med) [address] [place] [address] 18291-137 0 07/07/2021 11:40:36 07/25/2021 12:36:26 Chronic congestive heart failure 05571122 I50.9 Diabetes mellitus 407933 09 E11.40 Dyslipidem ia due to type 2 diabetes mellitus 1327877281 02 E78.5 Erectile dysfunction 860 795546 F52.21 Pityriasis versicolor 56 822511 B36.0 Diabetic p eripheral neuropathy 977744062 E11.40 Type 2 janusz betes mellitus 53102838 E11.40 Chronic ob structive pulmonary disease 79469541 J44.9 Degenerati ve joint disease involving multiple joints 499402315 M15.9 Acid reflux 179525934 K2 1.9 Screening for malignant neoplasm of colon 252992620 Z12.11 [id number] Vangie Tello MD [facility] (Adult Med) [address] [place] [address] 39171-667 0 08/05/2021 12:24:37 08/08/2021 09:17:47 Secondary erectile dysfunction 977454695 N52.39 Chronic co ngestive heart failure 34464058 I50.9 Diabetes mellitus 322715 09 E11.40 Acid reflux 649083953 K2 1.9 Chronic ob structive pulmonary disease 20994833 J44.9 Diabetic p eripheral neuropathy 573470508 E11.40 Type 2 janusz betes mellitus 56531329 E11.40 Dyslipidem ia due to type 2 diabetes mellitus 6083042677 02 E78.5 Degenerati ve joint disease involving multiple joints 481579308 M15.9 [id number] Vangie Tello MD [facility] (Adult Med) [address] [place] [address] 19137-099 0 08/31/2021 12:02:59 09/01/2021 12:34:40 Chronic congestive heart failure 50981016 I50.9 Tinea corporis 62602314 B35.4 Erectile dysfunction 860 479739 F52.21 Secondary erectile dysfunction 189321390 N52.39 Diabetes mellitus 300216 09 E11.40 Acid reflux 473724574 K2 1.9 Chronic ob structive pulmonary disease 72100933 J44.9 Diabetic p eripheral neuropathy 411091908 E11.40 Type 2 janusz betes mellitus 68799744 E11.40 Dyslipidem ia due to type 2 diabetes mellitus 4763370071 02 E78.5 Degenerati ve joint disease involving multiple joints 656943946 M15.9 Pityriasis versicolor 56 835659 B36.0 [id number] Vangie Tello MD [facility] (Adult Med) [address] [place] [address] 38637-631 0 10/07/2021 12:33:21 10/11/2021 07:41:46 Erectile dysfunction 794356650 F52.21 Infection of skin and/or subcutaneous tissue 46801729 L08.9 Chronic co ngestive heart failure 93133132 I50.9 Diabetes mellitus 114423 09 E11.40 Chronic ob structive pulmonary disease 07009671 J44.9 Degenerati ve joint disease involving multiple joints 586494102 M15.9 Acid reflux 317417355 K2 1.9 Diabetic p eripheral neuropathy 813636484 E11.40 Dyslipidem ia due to type 2 diabetes mellitus 1947706279 02 E78.5 [id number] ROSALINDA Layton (Peds) [address] [place] [address] 96839-298 0 01/16/2022 15:33:00 01/17/2022 12:11:00 Administration of SARS-CoV-2 mRNA vaccine 6650880984 Z23 [id number] MD [facility] (Adult Med) [address] [place] [address] 10021-991 0 01/16/2022 16:03:23 01/19/2022 10:53:06 Screening for malignant neoplasm of prostate 472728001 Z12.5 Screening for malignant neoplasm of colon 002410417 Z12.11 Type 2 janusz betes mellitus 80660837 E11.40 HIV screening 533456435 Z11.4 Cramping pain 194424079 R52 Exposure t o Hepatitis B virus 711062422 Z20.5 Secondary erectile dysfunction 236621431 N52.39 Obesity 019375640 E66.9 [id number] [facility] [address] [place] [address] 11393-770 0 06/21/2022 15:38:22 06/22/2022 15:47:33 Thoracic back pain 485223617 M54.6 Eruption 935125331 R21 Diabetes mellitus 470590 09 E11.40 Screening for malignant neoplasm of colon 107996283 Z12.11 Erectile dysfunction 860 065178 F52.21 Dyslipidem ia due to type 2 diabetes mellitus 9114426003 02 E78.5 Congestive heart failure 06449169 I50.9 [id number] [facility] [address] [place] [phone] 02/07/2023 17:11:12 02/09/2023 15:31:07 Type 2 diabetes mellitus 36772048 E11.40 Chronic co ngestive heart failure 96431337 I50.9 Diabetic p eripheral neuropathy 937507527 E11.40 Eruption 041791473 R21 Diabetes mellitus 405216 09 E11.40 Screening for malignant neoplasm of colon 545902636 Z12.11 Erectile dysfunction 860 005777 F52.21 Dyslipidem ia due to type 2 diabetes mellitus 1828611509 02 E78.5 Congestive heart failure 88970791 I50.9 Acid reflux 609205639 K2 1.9 Chronic ob structive pulmonary disease 02583703 J44.9 Cramping pain 295264352 R52 Infection of skin and/or subcutaneous tissue 83992573 L08.9 Allergic r eaction to bee sting 688327717 T63.444A Chronic th oracic back pain 2520515748 83916 M54.6 Obesity 329048393 E66.9 [id number] Vangie Tello MD [facility] (Adult Med) [address] [place] [address] [phone] 04/11/2023 16:11:30 04/12/2023 15:46:47 Administration of influenza vaccine 99030662 Z23 Acute resp iratory infections 398506943 J22 Impacted c erumen in right ear 7562855290 509564 H61.21 Hernia of anterior abdominal wall 134028957 K43.9 Diabetes mellitus 598654 09 E11.40 Chronic co ngestive heart failure 42743869 I50.9 Dyslipidem ia due to type 2 diabetes mellitus 1532764557 02 E78.5 Erectile dysfunction 860 240836 F52.21 Cramping pain 483006068 R52 Chronic th oracic back pain 8564203534 78845 M54.6 Diabetic p eripheral neuropathy 462352484 E11.40 Chronic ob structive pulmonary disease 23228227 J44.9 [id number] Vangie Tello MD [facility] (Adult Med) [address] [place] [address] [phone] 07/25/2023 16:36:06 07/30/2023 11:15:49 Chronic atrial fibrillation 993268680 I48.20 Diabetes mellitus 888337 09 E11.40 Chronic co ngestive heart failure 08045494 I50.9 Chronic ob structive pulmonary disease 48405417 J44.9 Acid reflux 723020575 K2 1.9 Diabetic p eripheral neuropathy 596421674 E11.40 Cramping pain 763144359 R52 Dyslipidem ia due to type 2 diabetes mellitus 7377789177 02 E78.5 Erectile dysfunction 860 846467 F52.21 Hernia of anterior abdominal wall 512907362 K43.9 [id number] Michelle Goodman MD [facility] [address] [place] [address] 07/26/2023 11:19:15 07/26/2023 14:34:35 Moderate persistent asthma 375549498 J45.40 Tolerant non-smoker 8773 9003 Z87.891 Obstructiv e sleep apnea syndrome 30141338 G47.33 Restrictiv e lung disease 10417495 J98.4 Morbid obesity 884910115 E66.01 Hypoxemia 468589561 R09. 02 Dyspnea on exertion 6084 5006 R06.09 Diabetic p eripheral neuropathy 646882401 E11.40 Periodic l imb movement disorder 606759892 G47.61 Dizziness 814885577 R42 Health Concerns Section Related Observation LastModified by Organization Detai ls LastModified Time None Recorded Concern Status LastModified by Organization Details LastModified Time None Recorded Advance Directives Directive N: Payers Encounter Date Sequence Insurance Name Policy Number Policy Leon Covered Member ID Leon Member ID Guarantor Name 06/21/2022 1 [facility] ON OR AFTER 11/25/20 (MEDICAID REPLACEMENT - HMO) Mann Lemp [id number] Mann Lemp 02/07/2023 1 [facility] ON OR AFTER 11/25/20 (MEDICAID REPLACEMENT - HMO) Mann Lemp [id number] Mann Lemp 04/11/2023 1 [facility] ON OR AFTER 11/25/20 (MEDICAID REPLACEMENT - HMO) Mann Kei [id number] Mann Lemp 07/25/2023 1 [facility] ON OR AFTER 11/25/20 (MEDICAID REPLACEMENT - HMO) Mann Lemp [id number] Mann Lemp 07/26/2023 1 [facility] ON OR AFTER 11/25/20 (MEDICAID REPLACEMENT - HMO) Mann Choudhury [id number] Mann Choudhury Notes Date Note Type Note Provider Name and Address Organization Details Recorded Time 06/21/2022 text/html Office visit,Allergic to glimepiride. History of type 2 DM, CHF, dyslipidemia skin eruption, upper back pain , and ED. Wants to refill med and referrals. Vangie Tello MD Attn: [facility],[address] [place], [address], [place] 06/21/2022 16:52:16 02/07/2023 text/html Office visit, allergic to glimepiride, check up and blood tests and med refills. Vangie Tello MD Attn: [facility],[address] [place], [address], [place] 02/07/2023 18:24:23 04/11/2023 text/html Office visit, allergic to glimepiride. Check up med refills. C/C1. respiratory track infection, 2. Right ear wax impacted. 3. Abdominal wall hernia getting bigger. No chest pain, some congestion of sinus, throat, want z PK. No fever, no other complaints, ROS as noted in HPI. Vangie Tello MD Attn: [facility],[address] [place], [address], [place] 04/11/2023 17:31:19 07/25/2023 text/html Office visit. allergic to glimepiride. history of type 2 DM, CHF, diabetic neuropathy, on oxygen , Check up and med refills. if any. No chest pain, no fever, no shortness of breath, regular appetite and Bowel habit. ROS as noted in HPI. Vangie Tello MD Attn: [facility],[address] [place], [address], [place] 07/25/2023 17:42:22 07/26/2023 text/html Patient is here for follow-up. He relates to me that his BiPAP machine is not giving him enough pressure. He has been having more shortness of breath. He has been having right shoulder pain and neck pain. He has not been in the office since October of 2020 Michelle Goodman MD [address] [place], [address], [facility] 07/26/2023 12:13:57
--- OUTSIDE RECORDS SUMMARY | 2024-05-14 16:51 | XMS_ITS | Encounter Summary ---
Author Organization [facility] Address Formerly [facility], 1930[id number] [facility] [place] [address] [place] [address] Care Team Providers Care Teacher Of The Deaf/Hard Of Hearing Name Role Phone Unavailable Primary Care Provider Unavailabl e Encounter Details Date Type Department Care Team (Latest Contact Info) Description 07/18/2018 11:16 PM CATCHER HELPER - 07/18/2018 11:59 PM CATCHER HELPER Hospital Encounter [facility] [place] [address] Michelle Goodman MD [address] [address] [place] [address] [place] [phone] Discharge Disposition: Home or Self Care (Routine Discharge) Social History Tobacco Use Types Packs/Day Years Used Date Smoking Tobacco: Never Assessed Sex and Gender Information Value Date Recorded Sex Assigned at Not on file Legal Sex Male 11:15 PM CATCHER HELPER Gender Identity Not on file Sexual Orientation Not on file documented as of this encounter Plan of Treatment Not on file documented as of this encounter Procedures Procedure Name Priority Date/Time Associated Diagnosis Comments D-DIMER, QUANTITATIVE Routine 07/18/2018 7:24 PM CATCHER HELPER documented in this encounter Results * (ABNORMAL) D-DIMER, QUANTITATIVE (07/18/2018 7:24 PM CATCHER HELPER) D-DIMER 247(HH) 0 - 230 D DU ng/mL 07/19/2018 12:57 AM CATCHER HELPER [facility] Comment: TESTING PERFORMED ON [place] [employer] ANA[employer]ER. NOTE: RESULTS OF THIS TEST SHOULD ALWAYS BE INTERPRETED IN CONJUNCTION WITH THE PATIENT'S MEDICAL HISTORY, CLINICAL PRESENTATION AND OTHER FINDINGS. CLINICAL DIAGNOSIS SHOULD NOT BE BASED ON THE RESULT OF D-DIMER ALONE. THE MEASUREMENT OF D-DIMER SHOULD NOT BE USED AN AID IN THE DIAGNOSIS OF VTE IN PATIENTS WITH: THERAPEUTIC DOSE ANTICOAGULANT THERAPY FOR >24HRS, FIBRINOLYTIC THERAPY WITHIN PREVIOUS 7 DAYS, TRAUMA OR SURGERY WITHIN PREVIOUS 4 WEEKS, DISSEMINATED MALIGNANCIES, AORTIC ANEURYSM, SEPSIS, SEVERE INFECTIONS, PNEUMONIA, SEVERE SKIN INFECTIONS, LIVER CIRRHOSIS OR . Successful Call: [facility] called 07/19/2018 01:01 AM to [facility] ([phone] ??FAX/TAMI MOE) by [id number]. Read Back: Yes 07/18/2018 7:24 PM CATCHER HELPER us Michelle Goodman MD LABORATORY Final Resul t [facility] [address] [place] [address], [place] [phone] documented in this encounter Visit Diagnoses Not on filedocumented in this encounter
--- OUTSIDE RECORDS SUMMARY | 2024-05-14 16:51 | XMS_ITS | Clinical Summary ---
Author Organization [place] [address] [facility] Address [address] [place] [address] Care Team Providers Care Phosphatic Fertilizer Supervisor Name Role Phone No, Physician Unavailable Vangie Valentine MD Primary Care Provider [phone] Allergies Active Allergy Reactions Criticality Noted Date Comments Amoxicillin Diarrhea Low 03/12/2024 Lidocaine Edema Medium 11/25/2021 Medications Incruse Ellipta 62.5 mcg/actuation blister with device INL 1 PUFF PO QD 0 Active aspirin 325 mg enteric coated tablet 0 Active carvediloL (COREG) 6.25 mg tablet 0 Active diltiazem (TIAZAC) 240 mg 24 hr capsule 0 Active digoxin (LANOXIN) 250 mcg (0.25 mg) tablet 0 Active metFORMIN XR (GLUCOPHAGE XR) 500 mg 24 hr tablet TK 1 T PO BID B MEALS 0 Active simvastatin (ZOCOR) 40 mg tablet 0 Active glimepiride (AMARYL) 2 mg tablet 0 Active furosemide (LASIX) 40 mg tablet 0 Active gabapentin (NEURONTIN) 800 mg tablet Take 800 mg by mouth 3 (three) times a day Active ipratropium-alb uteroL (DUO-NEB) 0.5-2.5 mg/3 mL nebulizer solution Take 3 mL by nebulization every 6 (six) hours 360 mL 3 0 Active lidocaine viscous (XYLOCAINE) 2 % solution Take 10 mL by mouth 3 (three) times a day 100 mL 1 Active acetaminophen-c odeine (TYLENOL with CODEINE #3) 300-30 mg per tablet Take 1-2 tablets by mouth every 6 (six) hours as needed for pain 15 tablet 1 Active famotidine (PEPCID) 20 mg tablet Take 1 tablet (20 mg total) by mouth 2 (two) times a day 10 tablet 2 Active naproxen (NAPROSYN) 500 mg tablet Take 1 tablet (500 mg total) by mouth 2 (two) times a day with meals 30 tablet 3 Active predniSONE (DELTASONE) 20 mg tablet Take 3 tablets (60 mg) by mouth daily 12 tablet 3 Active EPINEPHrine 0.3 mg/0.3 mL auto-injection syringeIndicati ons:Anaphylaxis Inject 0.3 mL (0.3 mg total) into the muscle as instructed once for 1 dose 1 each 1 3 Active Active Problems Problem Noted Date Diagnosed Date Obstructive sleep apnea 09/09/2019 Pulmonary hypertension 09/09/2019 Non-seasonal allergic rhinitis due to pollen Morbid obesity 09/09/2019 Non-smoker 09/09/2019 Fatigue 09/09/2019 History of pneumonia 05/18/2016 Hypoxemia 05/18/2016 Shortness of breath 05/18/2016 Sleep disorder 05/18/2016 Encounters Date Type Department Care Team Description 03/12/2024 10:31 AM CDT - 03/12/2024 11:59 PM CDT Hospital Encounter [facility] [address] [place] [address] BRIZUELA (dyspnea on exertion) Discharge Disposition: Discharge to home or self care from Last 3 Months Medical History Medical History Date Comments Diabetes (HCC) Neuropathy (CMS/HCC) Hypertension A-fib (CMS/HCC) (HCC) CHF (congestive heart failure) (CMS/HCC) (HCC) Family History Medical History Relation Name Comments Heart failure Father COPD Mother Emphysema Mother Relation Name Status Comments Father Mother Social History Tobacco Use Types Packs/Day Years Used Date Smoking Tobacco: Never Passive Smoke Exposure: Yes Smokeless Tobacco: Never Tobacco Cessation:Counseling Given: Not Answered Personal Safety Answer Date Recorded Getting School Help Needed Not on file 02/13 Sex and Gender Information Value Date Recorded Sex Assigned at Not on file Legal Sex Male 8:36 AM CDT Gender Identity Not on file Sexual Orientation Not on file Obstetrics History Last Filed Vital Signs Vital Sign Reading Time Taken Comments Blood Pressure 107/65 03/12/2024 11:09 AM CDT Pulse 67 03/12/2024 11:09 AM CDT Temperature 36.9 ??C (98.5 ??F) 01/27/2023 4:00 PM CD T Respiratory Rate 17 01/27/2023 4:00 PM CDT Oxygen Saturation 98% 01/27/2023 4:00 PM CDT Inhaled Oxygen Concentration - - Weight 127 kg (280 lb) 01/27/2023 4:00 PM CDT Height 182.9 cm (6') 01/27/2023 4:00 PM CDT Body Mass Index 37.97 01/27/2023 4:00 PM CDT Plan of Treatment Health Maintenance Due Date Last Done Comments Colon Cancer Screening-Colonoscopy 1960 Depression Screening 1960 Fall Risk Assessment 1960 Hepatitis C Screening 1960 Prostate Cancer Screening-PSA 1958 DTaP/Tdap/Td Vaccine (1 - Tdap) 1969 Hepatitis B Screening 1976 Zoster Vaccine (1 of 2) 2008 Pneumococcal vaccine 65+ (2 of 2 - PPSV23 or PCV20) 07/25/2018 05/30/2018 Abdominal Aortic Aneurysm (A AA) Screen 08/18/2023 05/13/2018 Well Visit 65+ 08/18/2023 Covid-19 Vaccine (3 - 2023-2 5 season) 2024 10/12/2020, 08/19/2020 Influenza Vaccine (#1) 2024 , 07/03/2019, 04/10/2019, Additional history exists Procedures Procedure Name Priority Date/Time Associated Diagnosis Comments CT HEART MORPHOLOGY AND CORONARY ARTERIES W CONTRAST Schedule Routine, Read Routine (OP Routine) 03/12/2024 11:33 AM CDT BRIZUELA (dyspnea on exertion) POCT CREATININE - DEVICE Routine 03/12/2024 10:[address] ABDOMEN PELVIS W CONTRAST Routine 05/13/2018 12:00 AM BUSINESS PLANNER from Last 3 Months or Most Recently Relevant to Health Maintenance Results * CTA Heart and Coronary Arteries W Morphology when Performed (03/12/2024 11:33 AM CDT) Anatomical Region Laterality Modality Chest N/A Computed Tomogra phy 03/12/2024 12:1 4 PM CDT Impressions 03/12/2024 12:14 PM CDT 1. Mild 3 vessel coronary atherosclerosis without any significant stenosis. 2. 6 mm nodule within the right middle lobe that was not seen clearly on the prior study and is likely postinfection. Would recommend consideration to follow-up CT without the use of intravenous contrast in 6 months. Electronically signed by: Reagan Calloway M.D. Narrative 03/12/2024 12:14 PM CDT Examination: CT coronary angiogram with and without intravenous contrast HISTORY: Dyspnea on exertion TECHNIQUE: Standard pre and postcontrast CT was performed according to a coronary CT angiogram protocol. Images are performed after the administration of 10 mg of metoprolol intravenously and 0.8 mg of nitroglycerin sublingually. A total of 120 mL of Optiray 350 intravenous contrast was used. FINDINGS: Comparison is made to prior study of 06/11/2022 A irregular nodule is seen in the right middle lobe measuring about 5 mm with multiple satellite nodules. This likely is banking representative of prior infection but was not present on the prior study. For this nodule would recommend a follow-up in 6 months without the use of contrast. No pleural or pericardial effusion. The heart size is within normal limits. No lymphadenopathy is seen. The total calcium score is 838 [address] places the patient had a 75-90% risk for age. Right coronary artery arises normally and has minimal atherosclerosis in the midportion. The patient is right dominant. Very minimal atherosclerosis is also seen in the distal right coronary artery. Very minimal atherosclerosis is seen in the distal left main without any significant narrowing. Mild atherosclerosis is seen throughout the left anterior descending coronary artery which is mildly tortuous. The left circumflex coronary artery has some mild atherosclerosis but no significant stenosis seen greater than 25%. The bone windows do not demonstrate any osseous lesion. Procedure Note Reagan Calloway MD - 03/12/2024 Examination: CT coronary angiogram with and without intravenous contrast HISTORY: Dyspnea on exertion TECHNIQUE: Standard pre and postcontrast CT was performed according to a coronary CT angiogram protocol. Images are performed after the administration of 10 mg of metoprolol intravenously and 0.8 mg of nitroglycerin sublingually. A total of 120 mL of Optiray 350 intravenous contrast was used. FINDINGS: Comparison is made to prior study of 06/11/2022 A irregular nodule is seen in the right middle lobe measuring about 5 mm with multiple satellite nodules. This likely is banking representative of prior infection but was not present on the prior study. For this nodule would recommend a follow-up in 6 months without the use of contrast. No pleural or pericardial effusion. The heart size is within normal limits. No lymphadenopathy is seen. The total calcium score is 838 [address] the patient had a 75-90% risk for age. Right coronary artery arises normally and has minimal atherosclerosis in the midportion. The patient is right dominant. Very minimal atherosclerosis is also seen in the distal right coronary artery. Very minimal atherosclerosis is seen in the distal left main without any significant narrowing. Mild atherosclerosis is seen throughout the left anterior descending coronary artery which is mildly tortuous. The left circumflex coronary artery has some mild atherosclerosis but no significant stenosis seen greater than 25%. The bone windows do not demonstrate any osseous lesion. IMPRESSION: 1. Mild 3 vessel coronary atherosclerosis without any significant stenosis. 2. 6 mm nodule within the right middle lobe that was not seen clearly on the prior study and is likely postinfection. Would recommend consideration to follow-up CT without the use of intravenous contrast in 6 months. Electronically signed by: Reagan Calloway M.D. Bry Estrada DO IM CT PROCEDURES Final Resu lt * POCT creatinine (03/12/2024 10:59 AM CDT) Creatinine POC 0.8 0.7 - 1.3 mg/dL Blood 03/12/2024 10:5 9 AM CDT 03/12/2024 10:59 AM CDT Bry Estrada DO LAB POCT ORDERABLES - DEVICE Final Result [facility] Department [place] [address] * CT Abdomen Pelvis W Contrast (05/13/2018 12:00 AM BUSINESS PLANNER) Anatomical Region Laterality Modality Body N/A Computed Tomogra phy 05/13/2018 Impressions 05/13/2018 2:50 AM BUSINESS PLANNER ??No acute findings in the abdomen or pelvis. THIS IS AN ELECTRONICALLY VERIFIED FINAL REPORT 05/13/2018 2:47 AM - Electronically signed by Mario Garcia M.D. RW D: ??05/13/2018 2:47 AM T: Report ID: [id number] Reading Location: ??[id number] [EOD] Narrative 05/13/2018 2:50 AM BUSINESS PLANNER EXAM DESCRIPTION: ??CT Abd/Pelvis W IV Contrast REASON FOR STUDY: ??Abdominal pain right upper quadrant pain after fall possible loss of consciousness headache shortness of breath for 3 months fall 1 day ago TECHNIQUE: ??CT scan of the abdomen and pelvis performed with intravenous and without oral contrast using helical scanning technique with dynamic intravenous contrast injection. Reconstructed coronal and sagittal MPR images reviewed. All images stored on PACS. Automated exposure control was used as a dose optimization technique for this examination. CONTRAST TYPE/DOSE: ??100 mL of Optiray 350 contrast were intravenously injected at the left hand. COMPARISON: ??None FINDINGS: LOWER CHEST: Included on CT chest report performed the same day. LIVER: Normal size. ??No identified cystic or solid masses. GALLBLADDER: No stones identified. No wall thickening or inflammatory changes. BILE DUCTS: No intrahepatic or extrahepatic ductal dilatation. SPLEEN: Normal size. ??No focal lesions. PANCREAS: No identified cystic or solid masses. No significant calcifications. No adjacent inflammation or peripancreatic fluid collections. Pancreatic duct not dilated. ADRENALS: Normal. KIDNEYS/URINARY TRACT: No identified significant cystic or solid masses. No visualized stones. No hydronephrosis or hydroureter. Symmetric enhancement. Urinary bladder is unremarkable. GI: No dilated bowel loops. No obvious wall thickening. ??Normal appendix. ??No significant diverticular disease. ??Broad-based midline anterior abdominal hernia just above the level of the umbilicus. ??This contains portion of the mid transverse colon. ??No evidence of obstruction or bowel wall thickening. ?? No evidence of inflammation. PERITONEUM: No ascites or free air. RETROPERITONEUM: No mass or adenopathy. REPRODUCTIVE: No significant abnormality. VASCULATURE: No abdominal aortic aneurysm. MUSCULOSKELETAL: No acute findings. ??Osteoarthritis of the hips. ??Degenerative change of the spine. OTHER: No other abnormality. Procedure Note Provider, MD Richard - 10/12/2020 EXAM DESCRIPTION: CT Abd/Pelvis W IV Contrast REASON FOR STUDY: Abdominal pain right upper quadrant pain after fall possible loss of consciousness headache shortness of breath for 3 monthsfall 1 day ago TECHNIQUE: CT scan of the abdomen and pelvis performed with intravenousand without oral contrast using helical scanning technique with dynamic intravenous contrast injection. Reconstructed coronal and sagittal MPRimages reviewed. All images stored on PACS. Automated exposure control was used as a dose optimization technique forthis examination. CONTRAST TYPE/DOSE: 100 mL of Optiray 350 contrast were intravenously injected at the left hand. COMPARISON: None FINDINGS: LOWER CHEST: Included on CT chest report performed the same day. LIVER: Normal size. No identified cystic or solid masses. GALLBLADDER: No stones identified. No wall thickening or inflammatorychanges. BILE DUCTS: No intrahepatic or extrahepatic ductal dilatation. SPLEEN: Normal size. No focal lesions. PANCREAS: No identified cystic or solid masses. No significantcalcifications. No adjacent inflammation or peripancreatic fluid collections. Pancreaticduct not dilated. ADRENALS: Normal. KIDNEYS/URINARY TRACT: No identified significant cystic or solid masses.No visualized stones. No hydronephrosis or hydroureter. Symmetricenhancement. Urinary bladder is unremarkable. GI: No dilated bowel loops. No obvious wall thickening. Normal appendix.No significant diverticular disease. Broad-based midline anterior abdominal hernia just above the level of the umbilicus. This contains portion ofthe mid transverse colon. No evidence of obstruction or bowel wallthickening. No evidence of inflammation. PERITONEUM: No ascites or free air. RETROPERITONEUM: No mass or adenopathy. REPRODUCTIVE: No significant abnormality. VASCULATURE: No abdominal aortic aneurysm. MUSCULOSKELETAL: No acute findings. Osteoarthritis of the hips.Degenerative change of the spine. OTHER: No other abnormality. IMPRESSION: No acute findings in the abdomen or pelvis. THIS IS AN ELECTRONICALLY VERIFIED FINAL REPORT 05/13/2018 2:47 AM - Electronically signed by aMrio Garcia M.D. RW T: Report ID: [id number] Reading Location: [id number] [EOD] Richardson Kilgore FOLDER MACHINE ADJUSTER IMG CT PROCEDURES Final R esult from Last 3 Months or Most Recently Relevant to Health Maintenance Insurance [address] [facility] IDPA MEDICARE SOLUTIONS [facility] MEDICARE Address: [address] [address] [place] [address] Care Teams Phosphatic Fertilizer Supervisor Relationship Specialty Start Date End Date Vangie Valentine MD [address] [place] [address] [address] [place] [address] PCP - General Internal Medicine 06/11/19 No, Physician 05/18/18
--- OUTSIDE RECORDS SUMMARY | 2024-05-14 16:51 | XMS_ITS | Referral Summary ---
Author Organization [place] [id number] [facility] Address [address] [place] [address] Care Team Providers Care Housing Quality Standard Inspector Name Role Phone No, Physician Unavailable Vangie Valentine MD Primary Care Provider [phone] Encounters Date Type Department Care Team Description 03/12/2024 10:31 AM CDT - 03/12/2024 11:59 PM CDT Hospital Encounter [facility] [address] [place] [address] BRIZUELA (dyspnea on exertion) Discharge Disposition: Discharge to home or self care from Last 3 Months Allergies Active Allergy Reactions Criticality Noted Date [...] Shortness of breath 05/18/2016 Sleep disorder 05/18/2016 Social History Tobacco Use Types Packs/Day Years [...] 01/27/2023 4:00 PM CDT Plan of Treatment Not on file Procedures Procedure Name Priority Date/Time Associated Diagnosis Comments CT HEART MORPHOLOGY AND CORONARY ARTERIES W CONTRAST Schedule Routine, Read Routine (OP Routine) 03/12/2024 11:33 AM CDT BRIZUELA (dyspnea on exertion) POCT CREATININE - DEVICE Routine 03/12/2024 10:[address] ABDOMEN PELVIS W CONTRAST Routine 05/13/2018 12:00 AM RETAIL SUPPORT ASSOCIATE from Last 3 Months or Most Recently [...] with multiple satellite nodules. This likely is visitor services representative of prior infection but was not [...] with multiple satellite nodules. This likely is visitor services representative of prior infection but was not [...] by: Reagan Calloway M.D. Bry Estrada DO IMG CT PROCEDURES Final Resu lt * POCT creatinine (03/12/2024 10:59 AM CDT) Creatinine POC 0.8 0.7 - 1.3 mg/dL Blood 03/12/2024 10:5 9 AM CDT 03/12/2024 10:59 AM CDT Bry Estrada DO LAB POCT ORDERABLES - DEVICE Final Result JUSTIN [facility] Department [place] [address] * CT Abdomen Pelvis W Contrast (05/13/2018 12:00 AM RETAIL SUPPORT ASSOCIATE) Anatomical Region Laterality Modality Body N/A Computed Tomogra phy 05/13/2018 Impressions 05/13/2018 2:50 AM RETAIL SUPPORT ASSOCIATE ??No acute findings in the abdomen or pelvis. THIS IS AN ELECTRONICALLY VERIFIED FINAL REPORT 05/13/2018 2:47 AM - Electronically signed by Mario Garcia M.D. RW D: ??05/13/2018 2:47 AM T: Report ID: [id number] Reading Location: ??[id number] [EOD] Narrative 05/13/2018 2:50 AM RETAIL SUPPORT ASSOCIATE EXAM DESCRIPTION: ??CT Abd/Pelvis W IV Contrast [...] Electronically signed by Mario Garcia M.D. RW T: Report ID: [id number] Reading Location: [place] [address] [EOD] Richardson Kilgore NP IMG CT PROCEDURES Final R esult from Last 3 Months or Most Recently Relevant to Health Maintenance [place] [place] [address] [employer] Care Teams Housing Quality Standard Inspector Relationship Specialty Start Date End Date Vangie Valentine MD [address] [place] [address] PCP - General Internal Medicine 06/11/19 No, Physician 05/18/18
--- OUTSIDE RECORDS SUMMARY | 2024-05-14 16:51 | XMS_ITS | Encounter Summary ---
Author Organization [facility] Address [address] [place] [address] Care Team Providers Care Directional Survey Drafter Name Role Phone No, Physician Unavailable Vangie Valentine MD Primary Care Provider [phone] Reason for Referral * MRI/CAT/PET Scan (Routine) - Closed Specialty Diagnoses / Procedures Referred By Angélica alexander Referred To Contact Radiology Diagnoses BRIZUELA (dyspnea on exertion) Procedures CTA Heart and Coronary Arteries W Morphology when Performed Bry Estrada DO [address] [place] [address] Phone: tel: fax: [address] [phone] Referral ID Status Reason Start Date Expiration Date Visits Re quested Visits Authorized [id number] Closed 02/14/2024 03/15/2025 1 1 Reason for Visit * MRI/CAT/PET Scan (Routine) - Closed Specialty Diagnoses / Procedures Referred By Angélica alexander Referred To Contact Radiology Diagnoses BRIZUELA (dyspnea on exertion) Procedures CTA Heart and Coronary Arteries W Morphology when Performed Bry Estrada DO [address] [place] [address] Phone: tel: fax: [address] [phone] Referral ID Status Reason Start Date Expiration Date Visits Re quested Visits Authorized [id number] Closed 02/14/2024 03/15/2025 1 1 Encounter Details Date Type Department Care Team (Latest Contact Info) Description 03/12/2024 10:31 AM CDT - 03/12/2024 11:59 PM CDT Hospital Encounter [facility]) [address] [place] [address] BRIZUELA (dyspnea on exertion) Discharge Disposition: Discharge to home or self care Social History Tobacco Use Types Packs/Day Years Used Date Smoking Tobacco: Never Passive Smoke Exposure: Yes Smokeless Tobacco: Never Personal Safety Answer Date Recorded Getting School [...] Pulse 67 03/12/2024 11:09 AM CDT Temperature - - Respiratory Rate - - Oxygen Saturation - - Inhaled Oxygen Concentration - - Weight - - Height - - Body Mass Index - - documented in this encounter Discharge Instructions * Discharge Instructions* Yuli White RN - 03/12/2024 11:08 AM CDT What is a CTA of the heart? CTA uses a CAT scan machine and an injection of contrast (radiology dye) into your blood vessels tohelp see blood vessel diseases or conditions such as abnormal blood vessels or blockages. You may have been given 10 mg Metoprolol intravenously and 0.8 mg Nitroglycerin sublingual during the study today. A headache will be the most common side effect of Nitroglycerin administration. You should not experience any other side effects from these medications. You may take prescribed medication as normal. documented in this encounter Medications at Time [...] 07/28/2022 simvastatin (ZOCOR) 40 mg tablet 08/11/2019 documented as of this encounter Discharge Disposition Disposition Code Departure Means Destination Discharge to home or self care documented in this encounter Plan of Treatment Not on file documented as of this encounter Procedures Procedure Name Priority Date/Time Associated Diagnosis Comments CT HEART MORPHOLOGY AND CORONARY ARTERIES W CONTRAST Schedule Routine, Read Routine (OP Routine) 03/12/2024 11:33 AM CDT BRIZUELA (dyspnea on exertion) POCT CREATININE - DEVICE Routine 03/12/2024 10:59 AM CDT documented in this encounter Results * CTA Heart and Coronary Arteries [...] with multiple satellite nodules. This likely is patient representative of prior infection but was not [...] with multiple satellite nodules. This likely is patient representative of prior infection but was not [...] POCT ORDERABLES - DEVICE Final Result JUSTIN [facility] Department [place] [address] documented in this encounter Visit Diagnoses Diagnosis BRIZUELA (dyspnea on exertion) Other dyspnea and respiratory abnormality documented in this encounter Administered Medications Inactive Administered Medications - up to 3 most recent administrations Medication Order MAR Action Action Date Dose Rate Site ioversoL (OPTIRAY 350) syringe 125 mL 125 mL, intravenous, Once in imaging, contrast, Starting on Sun03/12/24 at 1119, For 1 dose Contrast Given 03/12/2024 11:30 AM CDT 120 mL metoprolol (LOPRESSOR) injection 10 mg 10 mg, intravenous, Administer over 1 Minutes, Every 5 min PRN, other, heart rate reduction for study, Starting on Sun03/12/24 at 1045, For 1 hour, Administer during CT procedure only. Administer when heart rate remains over 60 and blood pressure is greater than 100/60. Max dose is 30mg. Given 03/12/2024 11:01 AM CDT 10 mg Left Forearm nitroglycerin (NITROSTAT) sublingual tablet 0.8 mg 0.8 mg, sublingual, Once as needed, other, coronary artery vasodilation, Starting on Sun03/12/24 at 1045, For 1 hour, Administer during CT procedure only. Administer when blood pressure is greater than 100/60 and patient has not taken any vasodilator medication or has critical aortic stenosis. Given by Other 03/12/2024 11:27 AM CDT 0.8 mg Other (Comment) documented in this encounter Care Teams Directional Survey Drafter Relationship Specialty Start Date End Date Vangie Valentine MD [address] [place] [address] PCP - General Internal Medicine 06/11/19 No, Physician 05/18/18 documented as of this encounter
--- OUTSIDE RECORDS SUMMARY | 2024-05-14 16:51 | XMS_ITS | Encounter Summary ---
Author Organization [facility] Healthcare Address [address] [place] [address] Care Team Providers Care Decontamination Worker Name Role Phone No, Physician Unavailable Vangie Valentine MD Primary Care Provider Reason for Visit * Reason Comments Allergic Reaction Encounter Details Date Type Department Care Team (Late st Contact Info) Description 07/28/2022 3:02 PM VICE PRESIDENT MEDIA RELATIONS - 07/28/2022 5:04 PM [facility] Emergency [address] [phone] Jean-Pierre Ballard, [address] [place] [address] Anaphylaxis, initial encounter (Primary Dx) Discharge Disposition: Discharge to home or self care Social History Tobacco Use Types Packs/Day Years Used Date Smoking Tobacco: Never Passive Smoke Exposure: Yes Smokeless Tobacco: Never Sex and Gender Information Value Date Recorded Sex Assigned at Not on file Legal Sex Male 8:36 AM CDT Gender Identity Not on file Sexual Orientation Not on file documented as of this encounter Last Filed Vital Signs Vital Sign Reading Time Taken Comments Blood Pressure 149/98 07/28/2022 4:30 PM VICE PRESIDENT MEDIA RELATIONS Pulse 82 07/28/2022 4:30 PM VICE PRESIDENT MEDIA RELATIONS Temperature 36.7 ??C (98.1 ??F) 07/28/2022 3:13 PM CS T Respiratory Rate 19 07/28/2022 4:30 PM VICE PRESIDENT MEDIA RELATIONS Oxygen Saturation 96% 07/28/2022 4:30 PM VICE PRESIDENT MEDIA RELATIONS Inhaled Oxygen Concentration - - Weight 127 kg (280 lb) 07/28/2022 3:13 PM VICE PRESIDENT MEDIA RELATIONS Height 185 cm (6' 0.84 ) 07/28/2022 3:13 PM VICE PRESIDENT MEDIA RELATIONS Body Mass Index 37.11 07/28/2022 3:13 PM VICE PRESIDENT MEDIA RELATIONS documented in this encounter Discharge Instructions * Discharge Instructions* Jean-Pierre Ballard DO - 07/28/2022 4:25 PM VICE PRESIDENT MEDIA RELATIONS Take prednisone starting tomorrow. You may take Benadryl as needed for mild symptoms. If you have severe symptoms such as difficulty breathing, swelling in the throat, difficulty swallowing you should take your EpiPen as directed and call 911. Call your primary care provider on Sunday to discuss your symptoms and need for further allergy testing. PRESIDENT MEDIA RELATIONS * Attachments The following attachments cannot be sent through Care Everywhere. * Anaphylaxis (AfterCare(R) Instructions(ER/ED)) (Citizen [place]) documented in this encounter Medications at Time of Discharge acetaminophen-co deine (TYLENOL with CODEINE #3) 300-30 mg per tablet Take 1-2 tablets by mouth every 6 (six) hours as needed for pain 15 tablet 01/04/2021 aspirin 325 mg enteric coated tablet 07/09/2019 carvediloL (COREG) 6.25 mg tablet 08/13/2019 digoxin (LANOXIN) 250 mcg (0.25 mg) tablet 08/13/2019 diltiazem (TIAZAC) 240 mg 24 hr capsule 08/11/2019 EPINEPHrine 0.3 mg/0.3 mL auto-injection syringeIndicatio ns:Anaphylaxis Inject 0.3 mL (0.3 mg total) into the muscle as instructed once for 1 dose 1 each 1 07/28/2022 famotidine (PEPCID) 20 mg tablet Take 1 [...] tablet 08/11/2019 documented as of this encounter Ordered Prescriptions Prescription Sig Dispense Quantity Refills Last Filled Start Date End Date EPINEPHrine 0.3 mg/0.3 mL auto-injection syringeIndications :Anaphylaxis Inject 0.3 mL (0.3 mg total) into the muscle as instructed once for 1 dose 1 each 1 07/28/2022 predniSONE (DELTASONE) 20 mg tablet Take 3 tablets (60 mg) by mouth daily 12 tablet 07/28/2022 documented in this encounter Discharge Disposition Disposition Code Departure Means Destination Comment s Discharge to home or self care documented in this encounter ED Notes * Jean-Pierre Ballard, - 07/28/2022 3:13 PM CST HPI Chief Complaint Patient presents with Allergic Reaction HPI 3:13 PM Mann Choudhury is a 61 y.o. male presenting to the ED c/o allergic reaction. Patient states history of allergic reaction, but never this severe. States he is not sure what he is allergic to. He states he ate a couple poor grinds that were barbecue flavor and next thing he remembers symptoms starting. He states face and throat swelling, difficulty breathing and talking, he notes hives and rash. He states nausea, lightheadedness, and feeling incoherent. EMS report blood pressure 50 palp withO2 sat of 75%. Patient took 50 mg of Benadryl prior to arrival. EMS gave 125 mg Solu-Medrol and a neb treatment prior to arrival. He did not receive epi. He takes lisinopril, but denies any other santillan ge in medications or diet today. He has not had allergy testing. Patient History: Past Medical History: Diagnosis Date A-fib (CMS/HCC) (HCC) CHF (congestive heart failure) (CMS/HCC) ([facility]) Diabetes (HCC) Hypertension Neuropathy (CMS/HCC) No past surgical history on file. Family History Problem Relation Age of Onset Emphysema Mother COPD Mother Heart failure Father Social History Tobacco Use Smoking status: Never Passive exposure: Yes Smokeless tobacco: Never Substance and Sexual Activity Drug use: Not on file Sexual activity: Not on file Alcohol Use: Not on file No current facility-administered medications for this encounter. Current Outpatient Medications: acetaminophen-codeine (TYLENOL with CODEINE #3) 300-30 mg per tablet aspirin 325 mg enteric coated tablet carvediloL (COREG) 6.25 mg tablet digoxin (LANOXIN) 250 mcg (0.25 mg) tablet diltiazem (TIAZAC) 240 mg 24 hr capsule EPINEPHrine 0.3 mg/0.3 mL auto-injection syringe famotidine (PEPCID) 20 mg tablet furosemide (LASIX) 40 mg tablet gabapentin (NEURONTIN) 800 mg tablet glimepiride (AMARYL) 2 mg tablet Incruse Ellipta 62.5 mcg/actuation blister with device ipratropium-albuteroL (DUO-NEB) 0.5-2.5 mg/3 mL nebulizer solution lidocaine viscous (XYLOCAINE) 2 % solution metFORMIN XR (GLUCOPHAGE XR) 500 mg 24 hr tablet naproxen (NAPROSYN) 500 mg tablet predniSONE (DELTASONE) 20 mg tablet simvastatin (ZOCOR) 40 mg tablet Review of Systems Review of Systems All other systems reviewed and are negative. Physical Exam ED Triage Vitals Temp Pulse Resp BP SpO2 07/28/22 1513 07/28/22 1505 07/28/22 1505 07/28/22 1505 07/28/22 1505 36.7 ??C (98.1 ??F) 94 28 112/72 96 % Temp src Heart Rate Source Patient Position BP Location FiO2 (%) -- -- -- -- -- Height Height Method Weight Weight Method 07/28/22 1513 07/28/22 1513 07/28/22 1513 07/28/22 1513 1.85 m (6' 0.84 ) Stated 127 kg (280 lb) Stated Physical Exam Vitals and nursing note reviewed. Constitutional: General: He is not in acute distress. Appearance: Normal appearance. HENT: Head: Normocephalic and atraumatic. Comments: Diffuse facial swelling Nose: Nose normal. Mouth/Throat: Mouth: Mucous membranes are moist. Eyes: Pupils: Pupils are equal, round, and reactive to light. Cardiovascular: Rate and Rhythm: Normal rate and regular rhythm. Heart sounds: Normal heart sounds. Pulmonary: Effort: Pulmonary effort is normal. Breath sounds: Normal breath sounds. No wheezing. Abdominal: General: Abdomen is flat. Palpations: Abdomen is soft. Tenderness: There is no abdominal tenderness. Musculoskeletal: General: No swelling. Cervical back: Neck supple. Skin: General: Skin is warm and dry. Findings: No rash. Neurological: Mental Status: He is alert. Mental status is at baseline. Psychiatric: Mood and Affect: Mood normal. Behavior: Behavior normal. Procedures [facility] Labs Reviewed - No data to display No orders to display BP 149/98 Pulse 82 Temp 36.7 ??C (98.1 ??F) Resp 19 Ht 185 cm (6' 0.84 ) Wt 127 kg (280 lb) SpO2 96% BMI 37.11 kg/m?? [facility] ED Course as of 07/28/22 1703 Time: 07/28 1516 Comment: O2 sat currently 97%. Patient states he feels much better. EMS state patient looks much better. Swelling has improved. Breathing is back to normal. EMS note that epinephrine is last treatment for anaphylaxis per their protocol. Discussed need for epinephrine in patient's case, will still give, although symptoms significantly improved per patient and EMS. Will continue monitoring. Discussed EpiPen use and need for further allergy testing. Doubt angioedema related to lisinopril as story consistent with acute anaphylaxis. By: Jean-Pierre Ballard, Time: 07/28 1612 Comment: Swelling nearly completely resolved at this time. Patient states he is normally on 3 L nasal cannula at home, placed on oxygen. No distress. Will continue to monitor. By: Jean-Pierre Ballard DO Time: 07/28 1702 Comment: Patient stable at discharge. By: Jean-Pierre Ballard DO This examination was transcribed using the [employer] voice recognition system without human tobacco weigher. In an effort to expedite patient care, this report has not been adjusted for typographical, grammatical, and syntax by a trained medical record specialist. Clinical Impression: Anaphylaxis, initial encounter Jean-Pierre Ballard DO 07/28/221702 PRESIDENT MEDIA RELATIONS * Janell Navarro RN - 07/28/2022 3:04 PM CST BIBA from home with an allergic reaction to unknown substance He was eating Pork Rinds when this happened and he eats them often. He says he has allergic reactions 1x a week and his primary is aware and is prescribed PO Benedryl 50 mg. HIs eyes and face were swollen and he was becoming incoherent. BP was hypertensive were upon arrival at the home and sats were less than 76% on RA. VS were more stable upon arrival to ER. On a rebreather 6L upon arrival satting 95%. Pt can speak and swallow saliva. PRESIDENT MEDIA RELATIONS PRESIDENT MEDIA RELATIONS documented in this encounter Plan of Treatment Not on file documented as of this encounter Visit Diagnoses Diagnosis Anaphylaxis, initial encounter- Primary documented in this encounter Administered Medications Inactive Administered Medications - up to 3 most recent administrations Medication Order MAR Action Action Date Dose Rate Site EPINEPHrine (ADRENALIN) injection 0.3 mg 0.3 mg, intramuscular, Once, On Sun07/28/22 at 1514, For 1 dose Given 07/28/2022 3:18 PM VICE PRESIDENT MEDIA RELATIONS 0.3 mg L eft Deltoid documented in this encounter Active and Recently Administered Medications Times are shown in VICE PRESIDENT MEDIA RELATIONS. Scheduled Medication Order 07/26/2022 07/27/2022 07/28/2022 EPINEPHrine (ADRENALIN) injection 0.3 mg (COMPLETED) 0.3 mg, intramuscular, Once, On Sun07/28/22 at 1514, For 1 dose 1518 (Given - Provid er: Janell Navarro RN) documented in this encounter Orders Medications Ordered That Warren ht Not Have Been Administered Count Last Ordered Date First Ordered Date EPINEPHrine (ADRENALIN) injection 0.3 mg 1 07/28/2022 documented in this encounter Care Teams Decontamination Worker Relationship Specialty Start Date End Date Vangie Valentine MD [address] [place] [id number] PCP - General Internal Medicine 06/11/19 No, Physician 05/18/18 documented as of this encounter
--- OUTSIDE RECORDS SUMMARY | 2024-05-14 16:51 | XMS_ITS | Encounter Summary ---
Author Organization [facility] Address [address] [place] [address]. 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
--- OUTSIDE RECORDS SUMMARY | 2024-05-14 16:51 | XMS_ITS | Encounter Summary ---
Author Organization [facility] Address [facility] 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 Gender Identity Not on file Sexual Orientation Not on file documented as of this encounter Plan of Treatment Not on file documented as of this encounter Procedures Procedure Name Priority Date/Time Associated Diagnosis Comments VASCULAR LAB GENERIC (SCAN ORDER) Routine 03/17/2023 documented in this encounter Results * VASCULAR LAB (03/17/2023) us Doc Pccl Scanned SCANNING Final Result [facility] documented in this encounter Visit Diagnoses Not on filedocumented in this encounter Care Teams Fullerette Relationship Specialty Start Date End Date A[place] [address] PCP - General Physician [facility] 09/10/23 documented as of this encounter
--- OUTSIDE RECORDS SUMMARY | 2024-05-14 16:52 | XMS_ITS | Encounter Summary ---
Author Organization [facility] Healthcare Address [address] [place] [id number] Care Team Providers Care Instrument Lens Grinder Apprentice Name Role Phone No, Physician Unavailable Vangie Valentine MD Primary Care Provider [phone] Reason for Visit * Reason Comments Hives Encounter Details Date Type Department Care Team (Late st Contact Info) Description 02/07/2021 7:59 AM CDT - 02/07/2021 9:07 AM CDT Emergency [address] [address] Urticaria, acute (Primary Dx) Discharge Disposition: Discharge to home or self care Social History Tobacco Use Types Packs/Day Years Used Date Smoking Tobacco: Passive Smo ke Exposure - Never Smoker Smokeless Tobacco: Never Sex and Gender Information Value Date Recorded Sex Assigned at Not on file Legal Sex Male 8:36 AM CDT Gender Identity Not on file Sexual Orientation Not on file documented as of this encounter Last Filed Vital Signs Vital Sign Reading Time Taken Comments Blood Pressure 106/79 02/07/2021 7:47 AM CDT Pulse 67 02/07/2021 7:47 AM CDT Temperature 36.3 ??C (97.3 ??F) 02/07/2021 7:47 AM CD T Respiratory Rate 18 02/07/2021 7:47 AM CDT Oxygen Saturation 93% 02/07/2021 7:47 AM CDT Inhaled Oxygen Concentration - - Weight 136.1 kg (300 lb) 02/07/2021 7:47 AM CDT Height 182.9 cm (6') 02/07/2021 7:47 AM CDT Body Mass Index 40.69 02/07/2021 7:47 AM CDT documented in this encounter Discharge Instructions * Discharge Instructions* Sunshine Farrell PA - 02/07/2021 8:37 AM CDT Return immediately for any new symptoms, worsening of symptoms, or persistent symptoms Follow-up as recommended is mandatory You MUST follow up for further evaluation of all incidental abnormal radiographic and laboratory findings, Have your physician obtain records from this visit and address all the incidental abnormal findings. This may include final results of lab testing, cultures, final x-ray reports which may not have been available during the time of the visit. * Attachments The following attachments cannot be sent through Care Everywhere. * Urticaria (AfterCare(R) Instructions(ER/ED)) (Serbian) documented in this encounter Medications at Time [...] (TIAZAC) 240 mg 24 hr capsule 08/11/2019 furosemide (LASIX) 40 mg tablet 08/13/2019 gabapentin [...] 1 T PO BID B MEALS 08/26/2019 simvastatin (ZOCOR) 40 mg tablet 08/11/2019 famotidine (PEPCID) 20 mg tablet Take 1 tablet (20 mg total) by mouth 2 (two) times a day 30 tablet 02/07/2021 11/25/2021 methylPREDNISolo ne (MEDROL DOSEPACK) 4 mg Dosepack Take 1 tablet (4 mg total) by mouth daily Take as directed on package 1 packet 02/07/2021 11/25/2021 naproxen (NAPROSYN) 500 mg tablet Take 1 tablet (500 mg total) by mouth 2 (two) times a day with meals 30 tablet 01/04/2021 06/11/2022 documented as of this encounter Ordered Prescriptions Prescription Sig Dispense Quantity Refills Last Filled Start Date End Date famotidine (PEPCID) 20 mg tablet Take 1 tablet (20 mg total) by mouth 2 (two) times a day 30 tablet 02/07/2021 2 methylPREDNISolone (MEDROL DOSEPACK) 4 mg Dosepack Take 1 tablet (4 mg total) by mouth daily Take as directed on package 1 packet 02/07/2021 2 documented in this encounter Discharge Disposition Disposition Code Departure Means Destination Discharge to home or self care documented in this encounter ED Notes * Sunshine Farrell PA - 02/07/2021 8:35 AM CDT HPI Chief Complaint Patient presents with ??? Hives HPI 8:37 AM Mann Choudhury is a 60 y.o. male presenting to the ED c/o rash x 3 days. Patient notes he had a rash all over his body causing a burning sensation x 3 days ago. States he ate a basket of fruits with a fruit in it that he had never had before. After that this rash developed. States it went awayon its own later that day. Notes he then woke up this morning to the same rash. In ED states he no longer has rash. Did not take any medications for his symptoms. Denies fevers, chills, nausea, vomiting, diarrhea. Patient History: Past Medical History: Diagnosis Date ??? Diabetes (HCC) ??? Neuropathy (CMS/HCC) History reviewed. No pertinent surgical history. Family History Problem Relation Age of Onset ??? Emphysema Mother ??? COPD Mother ??? Heart failure Father Social History Tobacco Use ??? Smoking status: Passive Smoke Exposure - Never Smoker ??? Smokeless tobacco: Never Used Substance Use Topics ??? Alcohol use: Not on file ??? Drug use: Not on file Current Facility-Administered Medications: ??? predniSONE (DELTASONE) tablet 60 mg, 60 mg, oral, Once Current Outpatient Medications: ??? acetaminophen-codeine (TYLENOL with CODEINE #3) 300-30 mg per tablet ??? aspirin 325 mg enteric coated tablet ??? carvediloL (COREG) 6.25 mg tablet ??? digoxin (LANOXIN) 250 mcg (0.25 mg) tablet ??? diltiazem (TIAZAC) 240 mg 24 hr capsule ??? famotidine (PEPCID) 20 mg tablet ??? furosemide (LASIX) 40 mg tablet ??? gabapentin (NEURONTIN) 800 mg tablet ??? glimepiride (AMARYL) 2 mg tablet ??? Incruse Ellipta 62.5 mcg/actuation blister with device ??? ipratropium-albuteroL (DUO-NEB) 0.5-2.5 mg/3 mL nebulizer solution ??? lidocaine viscous (XYLOCAINE) 2 % solution ??? metFORMIN XR (GLUCOPHAGE XR) 500 mg 24 hr tablet ??? methylPREDNISolone (MEDROL DOSEPACK) 4 mg Dosepack ??? naproxen (NAPROSYN) 500 mg tablet ??? simvastatin (ZOCOR) 40 mg tablet Review of Systems Review of Systems Constitutional: Negative for chills and fever. HENT: Negative for ear pain and sore throat. Eyes: Negative for pain and visual disturbance. Respiratory: Negative for cough and shortness of breath. Cardiovascular: Negative for chest pain and palpitations. Gastrointestinal: Negative for abdominal pain and vomiting. Genitourinary: Negative for dysuria and hematuria. Musculoskeletal: Negative for arthralgias and back pain. Skin: Positive for rash. Negative for color change. Neurological: Negative for seizures and syncope. All other systems reviewed and are negative. All systems reviewed and are neg or non contributory for this patients presentation today other than as stated in the HPI . Physical Exam ED Triage Vitals [02/07/21 0747] Temp Pulse Resp BP SpO2 36.3 ??C (97.3 ??F) 67 18 106/79 93 % Temp src Heart Rate Source Patient Position BP Location FiO2 (%) Oral Pulse Oximetry Sitting Right arm -- Physical Exam Vitals and nursing note reviewed. Constitutional: Appearance: He is well-developed. HENT: Head: Normocephalic and atraumatic. Eyes: Conjunctiva/sclera: Conjunctivae normal. Cardiovascular: Rate and Rhythm: Normal rate and regular rhythm. Heart sounds: Normal heart sounds. No murmur heard. Pulmonary: Effort: Pulmonary effort is normal. No respiratory distress. Breath sounds: Normal breath sounds. Comments: 4L O2 NC on exam Abdominal: Palpations: Abdomen is soft. Tenderness: There is no abdominal tenderness. Musculoskeletal: Cervical back: Neck supple. Skin: General: Skin is warm and dry. Neurological: Mental Status: He is alert and oriented to person, place, and time. Procedures [facility] Labs Reviewed POCT GLUCOSE DEVICE POCT GLUCOSE DEVICE POCT GLUCOSE DEVICE POCT GLUCOSE DEVICE POCT GLUCOSE DEVICE No orders to display BP 106/79 (BP Location: Right arm, Patient Position: Sitting) Pulse 67 Temp 36.3 ??C (97.3 ??F)(Oral) Resp 18 Ht 182.9 cm (6') Wt 136.1 kg (300 lb) SpO2 93% BMI 40.69 kg/m?? MDM This examination was transcribed using the [employer] voice recognition system without human infrastructure technician. In an effort to expedite patient care, this report has not been adjusted for typographical, grammatical, and syntax by a trained director of medical review. Clinical Impression: Urticaria, acute Sunshine Farrell PA 02/08/21 1157 Cosigned by Khai Rodriguez DO at 02/08/2021 9:12 PM CDT * Angelina Way RN - 02/07/2021 7:53 AM CDT To ED with c/o hives x 3 days intermittent and burning sensation. documented in this encounter Plan of Treatment Not on file documented as of this encounter Visit Diagnoses Diagnosis Urticaria, acute- Primary documented in this encounter Administered Medications Inactive Administered Medications - up to 3 most recent administrations Medication Order MAR Action Action Date Dose Rate Site predniSONE (DELTASONE) tablet 60 mg 60 mg, oral, Once, On 02/07/21 at 0836, For 1 dose Given 02/07/2021 8:44 AM CDT 60 mg documented in this encounter Active and Recently Administered Medications Times are shown in CDT. Scheduled Medication Order 02/05/2021 02/06/2021 02/07/2021 predniSONE (DELTASONE) tablet 60 mg (COMPLETED) 60 mg, oral, Once, On 02/07/21 at 0836, For 1 dose 0844 (Given - Provid er: Angelina Way RN) documented in this encounter Orders Medications Ordered That Warren ht Not Have Been Administered Count Last Ordered Date First Ordered Date predniSONE (DELTASONE) tablet 60 mg 1 02/07 documented in this encounter Care Teams Instrument Lens Grinder Apprentice Relationship Specialty Start Date End Date Vangie Valentine MD [address] [place] [address] PCP - General Internal Medicine 06/11/19 No, Physician 05/18/18 documented as of this encounter
--- OUTSIDE RECORDS SUMMARY | 2024-05-14 16:52 | XMS_ITS | Encounter Summary ---
Author Organization [facility] Address [address] [place] [address] Care Team Providers Care Reservation Agent Name Role Phone No, Physician Unavailable Vangie Valentine MD Primary Care Provider [phone] Encounter Details Date Type Department Care Team (Late st Contact Info) Description 09/04/2019 Orders Only [facility] Pulmonology [address] [place] [id number] Karla Roberts RN Obstructive sleep apnea (Primary Dx) Social History Tobacco Use Types Packs/Day Years Used Date Smoking Tobacco: Never Assessed Sex and Gender Information Value Date Recorded Sex Assigned at Not on file Legal Sex Male 8:36 AM CDT Gender Identity Not on file Sexual Orientation Not on file documented as of this encounter Progress Notes * Karla Roberts RN - 09/04/2019 4:01 PM CDT Pt called requesting to have cpap pressure increased from 18cm to 20cm. Verified change with Dr Goodman who authorized. Order has been sent to [facility]. Pt was notified and verbalized understanding. documented in this encounter Plan of Treatment Not on file documented as of this encounter Visit Diagnoses Diagnosis Obstructive sleep apnea- Primary Obstructive sleep apnea (adult) (pediatric) documented in this encounter Care Teams Reservation Agent Relationship Specialty Start Date End Date Vangie Valentine MD [address] [place] [address] PCP - General Internal Medicine 06/11/19 No, Physician 05/18/18 documented as of this encounter
--- OUTSIDE RECORDS SUMMARY | 2024-05-14 16:52 | XMS_ITS | Encounter Summary ---
Author Organization [facility] Healthcare Address [address] [place] [id number] Care Team Providers Care Food Mixer Repairer Name Role Phone No, Physician Unavailable Vangie Valentine MD Primary Care Provider [phone] Reason for Visit * Reason Comments Back Pain Chest Pain Encounter Details Date Type Department Care Team (Late st Contact Info) Description 06/10/2022 9:40 PM LAB COURIER - 06/11/2022 1:58 AM LAB COURIER Emergency [address] [address] Jean-Pierre Vee MD [address] [place] [id number] Acute right-sided thoracic back pain (Primary Dx) Discharge Disposition: Discharge to home or self care Social History Tobacco Use Types Packs/Day Years Used Date Smoking Tobacco: Never Passive Smoke Exposure: Yes Smokeless Tobacco: Never Tobacco Cessation:Counseling Given: Not Answered Sex and Gender Information Value Date Recorded Sex Assigned at Not on file Legal Sex Male 8:36 AM CDT Gender Identity Not on file Sexual Orientation Not on file documented as of this encounter Last Filed Vital Signs Vital Sign Reading Time Taken Comments Blood Pressure 143/99 06/11/2022 1:45 AM LAB COURIER Pulse 79 06/11/2022 1:45 AM LAB COURIER Temperature 36.7 ??C (98 ??F) 06/10/2022 7:08 PM LAB COURIER Respiratory Rate 21 06/11/2022 1:45 AM LAB COURIER Oxygen Saturation 95% 06/11/2022 1:45 AM LAB COURIER Inhaled Oxygen Concentration - - Weight 127 kg (280 lb) 06/10/2022 7:08 PM LAB COURIER Height 182.9 cm (6') 06/10/2022 7:08 PM LAB COURIER Body Mass Index 37.97 06/10/2022 7:08 PM LAB COURIER documented in this encounter Discharge Instructions * Discharge Instructions* Jean-Pierre Vee MD - 06/11/2022 1:36 AM LAB COURIER Take the naproxen twice daily for pain as prescribed. If you need additional pain medication, take 2 Extra Strength Tylenol every 4-6 hours as needed. Call your primary care provider to schedule a follow-up appointment. COURIER * Attachments The following attachments cannot be sent through Care Everywhere. * Back Pain (AfterCare(R) Instructions(ER/ED)) (Togolese) documented in this encounter Medications at Time [...] a day with meals 30 tablet 06/11/2022 simvastatin (ZOCOR) 40 mg tablet 08/11/2019 documented as of this encounter Ordered Prescriptions Prescription Sig Dispense Quantity Refills Last Filled Start Date End Date naproxen (NAPROSYN) 500 mg tablet Take 1 tablet (500 mg total) by mouth 2 (two) times a day with meals 30 tablet 06/11/2022 documented in this encounter Discharge Disposition Disposition Code Departure Means Destination Discharge to home or self care documented in this encounter ED Notes * Jean-Pierre Vee MD - 06/10/2022 11:49 PM CST HPI Chief Complaint Patient presents with Back Pain Chest Pain Patient presents c/o pleuritic R back pain. He has a PMhx of pleurisy, pneumonia, A fib (no longer on anticoagulation, is on ASA), CHRISTINE, obesity, HTN, and CHF. Reports he developed flu-like Sx ~2 weeks ago. The Sx resolved a few days ago, but he is having sharp pleuritic R back pain. No CP. No SOB. No LE pain/swelling. No fever. No other Sx. Patient History: Patient Active Problem List Diagnosis Date Noted Obstructive sleep apnea 09/09/2019 Pulmonary hypertension ([facility] ([facility]) 09/09/2019 Non-seasonal allergic rhinitis due to pollen 09/09/2019 Morbid obesity ([facility] ([facility]) 09/09/2019 Non-smoker 09/09/2019 Fatigue 09/09/2019 History of pneumonia 05/18/2016 Hypoxemia 05/18/2016 Shortness of breath 05/18/2016 Sleep disorder 05/18/2016 Past Medical History: Diagnosis Date A-fib ([facility]) ([facility]) CHF (congestive heart failure) ([facility]) ([facility]) Diabetes ([facility]) Hypertension Neuropathy ([facility]) History reviewed. No pertinent surgical history. Family History Problem Relation Age of Onset Emphysema Mother COPD Mother Heart failure Father Social History Tobacco Use Smoking status: Never Passive exposure: Yes Smokeless tobacco: Never Substance and Sexual Activity Alcohol use: None Drug use: None Sexual activity: None Social History Social History Narrative Not on file Review of Systems Review of Systems Constitutional: Negative for chills and fever. HENT: Negative. Eyes: Negative. Respiratory: Negative for cough and shortness of breath. Gastrointestinal: Negative for abdominal pain, nausea and vomiting. Endocrine: Negative. Genitourinary: Negative for dysuria and frequency. Musculoskeletal: Positive for back pain. Skin: Negative for rash. Allergic/Immunologic: Negative. Neurological: Negative for dizziness, light-headedness and headaches. Psychiatric/Behavioral: Negative for confusion. All other systems reviewed and are negative. Physical Exam ED Triage Vitals [06/10/221907] Temp Pulse Resp BP SpO2 36.7 ??C (98 ??F) 98 20 (!) 160/119 94 % Temp src Heart Rate Source Patient Position BP Location FiO2 (%) Oral Monitor Sitting Right arm -- Height Height Method Weight Weight Method 1.829 m (6') Stated 127 kg (280 lb) Stated Physical Exam Vitals and nursing note reviewed. Constitutional: General: He is not in acute distress. HENT: Head: Normocephalic and atraumatic. Eyes: Extraocular Movements: Extraocular movements intact. Cardiovascular: Rate and Rhythm: Normal rate and regular rhythm. Heart sounds: Normal heart sounds. Pulmonary: Effort: Pulmonary effort is normal. Comments: Right basilar crackles, and slight pleural rub Chest: Chest wall: No tenderness. Abdominal: General: Bowel sounds are normal. Palpations: Abdomen is soft. Tenderness: There is no abdominal tenderness. Musculoskeletal: Cervical back: Neck supple. Right lower leg: No tenderness. No edema. Left lower leg: No tenderness. No edema. Comments: Right thoracic paraspinal tenderness and spasm Skin: General: Skin is warm and dry. Capillary Refill: Capillary refill takes less than 2 seconds. Neurological: General: No focal deficit present. Mental Status: He is alert and oriented to person, place, and time. Psychiatric: Mood and Affect: Mood normal. Behavior: Behavior normal. MDM Medical Decision Making DDx includes PE, pleurisy, pneumonia, musculoskeletal back pain CLINICAL DECISION TOOLS Wells Score for PE = 4.5 = Moderate risk group: 16.2% chance of PE in an ED population. --> CTA indicated. D dimer not indicated. Amount and/or Complexity of Data Reviewed Independent Historian: friend Details: girlfriend at bedside External Data Reviewed: radiology. Details: 05/13/18 - CT Chest = Bibasilar consolidation or atelectasis with accompanying small bilateral pleural effusions. Labs: Decision-making details documented in ED Course. Radiology: ordered. Decision-making details documented in ED Course. ECG/medicine tests: independent interpretation performed. Decision-making details documented in ED Course. Risk OTC drugs. Prescription drug management. Decision regarding hospitalization. ED Course as of 06/11/22 0138 Time: 06/10 2337 Value: XR Chest 1 Vw Portable Comment: No acute abnormality identified. By: Jean-Pierre Vee MD Time: 06/10 2337 Value: Plt(!): 146 Comment: Mild thrombocytopenia, chronic, stable By: Jean-Pierre Vee MD Time: 06/10 2337 Value: Trop T hs(!): 28 Comment: Mild elevation, no acute ischemic changes on ekg By: Jean-Pierre Vee MD Time: 06/10 2338 Value: Trop T hs(!): 26 Comment: Mild elevation, no acute ischemic changes on ekg -- stable w/ no sig rise from initial By: Jean-Pierre Vee MD Time: 06/10 2338 Comment: CMP w/ no clinically meaningful abnormality COVID/FLU/RSV = neg By: Jean-Pierre Vee MD Time: 06/10 2341 Value: ECG 12 lead Comment: A fib at 97 bpm, no acute injury pattern By: Jean-Pierre Vee MD Time: 06/11 129 Value: Trop T hs(!): 25 Comment: stable By: Jean-Pierre Vee MD Time: 06/11 129 Value: CT Chest PE (CTA) W Contrast Comment: No CTA evidence of pulmonary embolism. Atherosclerosis of the aorta and coronary arteries. Small hiatal hernia. Old granulomatous disease the lymph nodes and lungs. Degenerative change of the thoracic spine. By: Jean-Pierre Vee MD Time: 06/11 136 Comment: DC / Follow-up instructions Take the naproxen twice daily for pain as prescribed. If you need additional pain medication, take 2 Extra Strength Tylenol every 4-6 hours as needed. Call your primary care provider to schedule a follow-up appointment. By: Jean-Pierre Vee MD Final diagnoses: Acute right-sided thoracic back pain - pleuritic Jean-Pierre Vee MD 06/11/22 0138 COURIER * Jacob Wei RN - 06/10/2022 9:40 PM CST Bed: ED21 Expected date: Expected time: Means of arrival: Comments: Jacob Wei RN 06/10/22 7420 COURIER * Anya Akers RN - 06/10/2022 7:33 PM CST Patient complains of sharp stabbing pain in right rib/back area that has been occurring for 3 days - today is worse. Patient also complains of chills, nausea, cough, congestion, and body aches x 5 days. A/OX4. PWD. ANSWERS APPROPRIATELY. COURIER documented in this encounter Miscellaneous Notes * ED Procedure Note - Jean-Pierre Vee MD - 06/10/2022 11:41 PM LAB COURIER Associated Order(s): ECG 12 lead Procedure ECG 12 lead Date/Time: 06/10/2022 11:41 PM Performed by: Jean-Pierre Vee MD Authorized by: Vasquez Lucero NP Rate: ECG rate: 97 ECG rate assessment: normal Rhythm: Rhythm: atrial fibrillation Ectopy: Ectopy: PVCs QRS: QRS axis: Left QRS intervals: Normal Conduction: Conduction: normal ST segments: ST segments: Normal T waves: T waves: non-specific Interpretation: Interpretation: No acute injury pattern Recommended Follow-up: Recommended follow up: further workup in the ED Jean-Pierre Vee MD 06/10/22 1336 COURIER documented in this encounter Plan of Treatment Not on file documented as of this encounter Procedures Procedure Name Priority Date/Time Associated Diagnosis Comments CT CHEST PE W CONTRAST ED 12:20 AM LAB COURIER TROPONIN T HIGH-SENSITIVITY 4-HR Timed 06/10/2022 11:31 PM LAB COURIER TROPONIN T HIGH-SENSITIVITY 2-HOUR Timed 06/10/2022 10:04 PM LAB COURIER XR CHEST 1 VIEW ED 06/10/2022 8:31 PM LAB COURIER TROPONIN T HIGH-SENSITIVITY SERIES (BASELINE, 2HR, 4HR, 6HR) STAT 06/10/2022 7:45 PM LAB COURIER INFLUENZA A/B, RSV, AND COVID-19 PCR Routine 06/10/2022 7:45 PM LAB COURIER EGFR STAT 06/10/2022 7:45 PM LAB COURIER DIFFERENTIAL AUTO STAT 06/10/2022 7:4 5 PM LAB COURIER CBC WITH AUTO DIFFERENTIAL STAT 06/10/2022 7:45 PM LAB COURIER COMPREHENSIVE METABOLIC PANEL STAT 06/10/2022 7:45 PM LAB COURIER ECG 12-LEAD STAT 06/10/2022 7:18 PM LAB COURIER documented in this encounter Results * CT Chest PE (CTA) W Contrast (06/11/2022 12:20 AM LAB COURIER) Anatomical Region Laterality Modality Body N/A Computed Tomogra phy 06/11/2022 12:3 2 AM LAB COURIER Narrative 06/11/2022 12:41 AM LAB COURIER EXAM DESCRIPTION: ?? CT CHEST PE (CTA) W CONTRAST REASON FOR STUDY: ?? Chest pain, PE suspected, high prob, right side pain ?? Table formatting from the original note was not included. ??Patient complains of sharp stabbing pain in right rib/back area that has been occurring for 3 days - today is worse. ?? Patient also complains of chills, nausea, cough, congestion, and body aches x 5 days. ?Surg: appendectomy ?Past Medical History: ?? Diagnosis Date ?A-fib (CMS/HCC) (HCC) ?CHF (congestive heart failure) (CMS/HCC) (HCC) ?Diabetes (HCC) ?Hypertension ?Neuropathy (CMS/HCC) ? TECHNIQUE: CT angiogram of the chest performed with intravenous contrast using helical scanning technique with dynamic intravenous contrast injection. Reconstructed coronal and sagittal MPR images reviewed. All images stored on PACS. ?? 3D MIP images rendered on scanning unit and reviewed at time of interpretation. ??Automated exposure control was used as a dose optimization technique for this examination. CONTRAST TYPE/DOSE: ?? 80mL of IOHEXOL 350 MG IODINE/ML INTRAVENOUS SOLUTION ?? injected via ?? intravenous COMPARISON: ?? Chest x-ray of June 10, 2022. FINDINGS: NECK BASE: ??Unremarkable. HARDWARE/LINES/TUBES: ?? None. LYMPH NODES: ??No axillary, mediastinal or hilar adenopathy is seen by CT size criteria. ?? There are multiple calcified mediastinal and right hilar lymph nodes. MEDIASTINUM/KIA: ?? No masses seen. ?? There is mild atherosclerosis of the aorta. ?There is moderate coronary artery calcification. ??The contrast bolus is adequate. ??The pulmonary arteries are well evaluated to the subsegmental level. ??There are no filling defects seen in the pulmonary arteries on IV the axial or coronal images to suggest pulmonary embolism. ??There is no evidence of left ventricular bowing. ??There is no significant reflux of contrast into the IVC. ?? Heart size is normal. ?? There is no significant pericardial effusion. ?? There is a small hiatal hernia. PLEURA: ??No effusion. No pneumothorax. LUNGS: ?? There is bibasilar atelectasis. ??There are scattered calcified granulomas. CHEST WALL/BREAST: ?? No masses. ??No subcutaneous air. MUSCULOSKELETAL: ??There is diffuse degenerative change of the thoracic spine. ?? There is no acute abnormality. ? UPPER ABDOMEN: ?? No significant abnormality. ? OTHER: ?? No other significant abnormality. ?? IMPRESSION: ?? No CTA evidence of pulmonary embolism. Atherosclerosis of the aorta and coronary arteries. Small hiatal hernia. Old granulomatous disease the lymph nodes and lungs. Degenerative change of the thoracic spine. THIS IS AN ELECTRONICALLY VERIFIED FINAL REPORT 06/11/2022 12:41 AM - Electronically signed by ??Larissa Gomez M.D. D: ??06/11/2022 12:41 AM T: Report ID: [id number] Reading Location: ??[id number] Procedure Note Larissa Gomez MD - 06/11/2022 EXAM DESCRIPTION: CT CHEST PE (CTA) W CONTRAST REASON FOR STUDY: Chest pain, PE suspected, high prob, right side pain Table formatting from the original note was not included. Patientcomplains of sharp stabbing pain in right rib/back area that has been occurring for3 days - today is worse. Patient also complains of chills, nausea, cough, congestion, and body aches x 5 days. Surg: appendectomy Past Medical History: Diagnosis Date A-fib (CMS/HCC) (HCC) CHF (congestiveheart failure) (CMS/HCC) (HCC) Diabetes (HCC) HypertensionNeuropathy (CMS/HCC) TECHNIQUE: CT angiogram of the chest performed with intravenous contrastusing helical scanning technique with dynamic intravenous contrast injection. Reconstructed coronal and sagittal MPR images reviewed. All images storedon PACS. 3D MIP images rendered on scanning unit and reviewed at time of interpretation. Automated exposure control was used as a doseoptimization technique for this examination. CONTRAST TYPE/DOSE: 80mL of IOHEXOL 350 MG IODINE/ML INTRAVENOUSSOLUTION injected via intravenous COMPARISON: Chest x-ray of June 10, 2022. FINDINGS: NECK BASE: Unremarkable. HARDWARE/LINES/TUBES: None. LYMPH NODES: No axillary, mediastinal or hilar adenopathy is seen by CTsize criteria. There are multiple calcified mediastinal and right hilar lymph nodes. MEDIASTINUM/KIA: No masses seen. There is mild atherosclerosis of the aorta. There is moderate coronary artery calcification. The contrastbolus is adequate. The pulmonary arteries are well evaluated to thesubsegmental level. There are no filling defects seen in the pulmonary arteries on IVthe axial or coronal images to suggest pulmonary embolism. There is noevidence of left ventricular bowing. There is no significant reflux of contrastinto the IVC. Heart size is normal. There is no significant pericardial effusion. There is a small hiatal hernia. PLEURA: No effusion. No pneumothorax. LUNGS: There is bibasilar atelectasis. There are scattered calcified granulomas. CHEST WALL/BREAST: No masses. No subcutaneous air. MUSCULOSKELETAL: There is diffuse degenerative change of the thoracicspine. There is no acute abnormality. UPPER ABDOMEN: No significant abnormality. OTHER: No other significant abnormality. IMPRESSION: No CTA evidence of pulmonary embolism. Atherosclerosis of the aorta and coronary arteries. Small hiatal hernia. Old granulomatous disease the lymph nodes and lungs. Degenerative change of the thoracic spine. THIS IS AN ELECTRONICALLY VERIFIED FINAL REPORT 06/11/2022 12:41 AM - Electronically signed by Larissa Gomez M.D. SN T: Report ID: [id number] Reading Location: [place] [address] Jean-Pierre Vee MD IMG CT PROCEDURES Final Re sult * (ABNORMAL) Troponin T high-sensitivity 4-hour (06/10/2022 11:31 PM LAB COURIER) Trop T hs 25(H) <=22 ng/L JUSTIN MILNER Comment: Interpretive Data For further hscTnT resources including the diagnostic algorithm and an aid in interpretation, copy and paste this link: https://nrl.testcatalog.org/show/hsTrop Current Interpretive Data last revised 2020. Trop T hs delta -3 ng/L JUSTIN MILNER Trop T hs interp Insignificant JUSTIN MILNER Blood 06/10/2022 11:3 1 PM LAB COURIER 06/10/2022 11:33 PM LAB COURIER Vasquez Lucero NP LAB BLOOD ORDERABLES Final Resul t JUSTIN MILNER [address] [facility] Department [place] [address] * (ABNORMAL) Troponin T high-sensitivity 2-hour (06/10/2022 10:04 PM LAB COURIER) Trop T hs 26(H) <=22 ng/L JUSTIN MILNER Comment: Interpretive Data For further hscTnT resources including the diagnostic algorithm and an aid in interpretation, copy and paste this link: https://nrl.testcatalog.org/show/hsTrop Current Interpretive Data last revised 2020. Trop T hs delta -2 ng/L JUSTIN MILNER Trop T hs interp Insignificant JUSTIN MILNER Blood 06/10/2022 10:0 4 PM LAB COURIER 06/10/2022 10:06 PM LAB COURIER us Vasquez Lucero NP LAB BLOOD ORDERABLES Final Resul t JUSTIN [address] [facility] Department [place] [address] * XR Chest 1 Vw Portable (06/10/2022 8:31 PM LAB COURIER) Anatomical Region Laterality Modality Body, Chest N/A Computed Radiogr aphy 06/10/2022 9:45 PM LAB COURIER Narrative 06/10/2022 9:46 PM LAB COURIER EXAM DESCRIPTION: ?? XR CHEST 1 VIEW REASON FOR STUDY: ?? chest pain ?? Patient complains of sharp stabbing pain in right rib/back area that has been occurring for 3 days - today is worse. ? Patient also complains of chills, nausea, cough, congestion, and body aches x 5 days. ?? TECHNIQUE: ??Portable upright AP view of the chest. COMPARISON: 08/04/2019 FINDINGS: LUNGS AND PLEURA: ??No focal opacity, large effusion, or pneumothorax identified. HEART/MEDIASTINUM: ??Trachea midline. ?? Cardiac silhouette normal in size. Mediastinal contours appear normal. BONES: ??Unremarkable. ?? CHEST WALL: ??Unremarkable. ?? UPPER ABDOMEN: ??Unremarkable. ?? IMPRESSION: No acute abnormality identified. ?? THIS IS AN ELECTRONICALLY VERIFIED FINAL REPORT 06/10/2022 9:46 PM - Electronically signed by ??Rigoberto Martin M.D. AR D: ??06/10/2022 9:46 PM T: Report ID: [id number] Reading Location: ??[id number] Procedure Note Rigoberto Martin MD - 06/10/2022 EXAM DESCRIPTION: XR CHEST 1 VIEW REASON FOR STUDY: chest pain Patient complains of sharp stabbing pain in right rib/back area that hasbeen occurring for 3 days - today is worse. Patient also complains ofchills, nausea, cough, congestion, and body aches x 5 days. TECHNIQUE: Portable upright AP view of the chest. COMPARISON: 08/04/2019 FINDINGS: LUNGS AND PLEURA: No focal opacity, large effusion, orpneumothorax identified. HEART/MEDIASTINUM: Trachea midline. Cardiac silhouette normal in size. Mediastinal contours appear normal. BONES: Unremarkable. CHEST WALL: Unremarkable. UPPER ABDOMEN: Unremarkable. IMPRESSION: No acute abnormality identified. THIS IS AN ELECTRONICALLY VERIFIED FINAL REPORT 06/10/2022 9:46 PM - Electronically signed by Rigoberto BRITO T: Report ID: [id number] Reading Location: [id number] Vasquez Lucero PEST CONTROL SUPERVISOR IMG XR PROCEDURES Final Result * eGFR (06/10/2022 7:45 PM LAB COURIER) eGFR 85 mL/min/1. 73 m2 JUSTIN MINLER Comment: Interpretive Data Reference Interval Normal ?>/= [...] interpretive data was last reviewed 2021. Blood 06/10/2022 7:45 PM LAB COURIER 06/10/2022 7:51 PM LAB COURIER us Vasquez Lucero NP LAB BLOOD ORDERABLES Final Resul t [place] [id number] [facility] Department [place] [address] * Differential, auto (06/10/2022 7:45 PM LAB COURIER) Neutrophil abs 4.1 1.7 - 6.5 K/cumm [facility] Imm gran abs 0.0 0.0 - 0.1 K/cumm [facility] Lymphocyte abs 2.5 0.8 - 3.3 K/cumm [facility] Monocyte abs 0.7 0.2 - 0.8 K/cumm [facility] Eosinophil abs 0.1 0.0 - 0.5 K/cumm [facility] Basophil abs 0.0 0.0 - 0.1 K/cumm [facility] Neutrophil pct 54.5 % [facility] Comment: Interpretive Data Percent cell count reference ranges are not reported, since discordance with absolute values may lead to misinterpretation of CBC data. Current Interpretive Data was last revised on 2017. Imm gran pct 0.5 % [facility] Comment: Interpretive Data Percent cell count reference ranges are not reported, since discordance with absolute values may lead to misinterpretation of CBC data. Current Interpretive Data was last revised on 2017. Lymphocyte pct 33.6 % [facility] Comment: Interpretive Data Percent cell count reference ranges are not reported, since discordance with absolute values may lead to misinterpretation of CBC data. Current Interpretive Data was last revised on 2017. Monocyte pct 9.9 % [facility] Comment: Interpretive Data Percent cell count reference ranges are not reported, since discordance with absolute values may lead to misinterpretation of CBC data. Current Interpretive Data was last revised on 2017. Eosinophil pct 1.2 % [facility] Comment: Interpretive Data Percent cell count reference ranges are not reported, since discordance with absolute values may lead to misinterpretation of CBC data. Current Interpretive Data was last revised on 2017. Basophil pct 0.3 % [facility] Comment: Interpretive Data Percent cell count reference ranges are not reported, since discordance with absolute values may lead to misinterpretation of CBC data. Current Interpretive Data was last revised on 2017. Blood 06/10/2022 7:45 PM LAB COURIER 06/10/2022 7:51 PM LAB COURIER us Vasquez Lucero PEST CONTROL SUPERVISOR LAB BLOOD ORDERABLES Final Resul t [address] Department [place] [address] * Influenza A/B, RSV, and COVID-19 PCR Nasopharyngeal (06/10/2022 7:45 PM LAB COURIER) COVID-19 RNA Negative Negative [facility] Influenza A RNA Negative Negative [facility] Influenza B RNA Negative Negative [facility] RSV RNA Negative Negative [facility] Comment: Interpretive data: This test is performed using the [employer] Xpert Xpress CoV-2/Flu/RSV plus assay. This is a multiplex, real-time reverse transcriptase PCR assay intended for the qualitative detection of nucleic acid from SARS-CoV-2, influenza A, influenza B, and respiratory syncytial virus. This assay has been reviewed by the FDA for Emergency Use Authorization (EUA). The performance characteristics have been verified by the performing laboratory. Results must be considered in the clinical context, and a negative result does not rule out infection. Interpretive Data last revised 2021. Nasopharyngeal 06/10/2022 7: 45 PM LAB COURIER 06/10/2022 7:51 PM LAB COURIER Narrative [facility] - 06/10/2022 8:33 PM LAB COURIER Is the Patient experiencing symptoms consistent with COVID?->Yes Date of Symptom Onset->06/05/22 Reason for testing?->Symptomatic Vasquez Lucero NP LAB MICROBIOLOGY - GENERAL ORDER JAYASHREE Final Result Performing Organization Address [facility] [facility] de Phone Number JUSTIN [address] [address] * (ABNORMAL) Troponin T high-sensitivity series (baseline, 2hr, 4hr, 6hr) (06/10/2022 7:45 PM LAB COURIER) Pathologist [facility] Trop T hs 28(H) <=22 ng/L [facility] Comment: Interpretive Data For further hscTnT resources including the diagnostic algorithm and an aid in interpretation, copy and paste this link: https://nrl.testcatalog.org/show/hsTrop Current Interpretive Data last revised 2020. Blood 06/10/2022 7:45 PM LAB COURIER 06/10/2022 7:51 PM LAB COURIER Vasquez Lucero NP LAB BLOOD ORDERABLES Final Resul t Performing Organization Address [facility] de Phone Number [address] [address] * (ABNORMAL) Comprehensive metabolic panel (06/10/2022 7:45 PM LAB COURIER) [facility] Sodium 141 135 - 145 mmol/L [facility] Potassium, pl 4.4 3.3 - 4.9 mmol/L [facility] Chloride 106 97 - 110 mmol/L [facility] CO2 31 22 - 32 mmol/L [facility] Anion gap 4 2 - 15 mmol/L [facility] BUN 30(H) 8 - 25 mg/dL [facility] Creatinine 1.00 0.80 - 1.30 mg/dL [facility] Glucose 113 70 - 199 mg/dL [facility] Comment: Interpretive Data Fasting glucose >/= [...] classification and Diagnosis of Diabetes Diabetes Care 2017;40 (Suppl. 1):S11. Current interpretive data was last revised 2017. Calcium 9.4 8.5 - 10.3 mg/dL [facility] Bilirubin, total 0.4 0.1 - 1.2 mg/dL [facility] Protein, pl 6.7 6.5 - 8.5 g/dL [facility] Albumin 3.9 3.5 - 5.0 g/dL [facility] Alk phos 91 40 - 130 Units/L [facility] ALT 21 7 - 55 Units/L [facility] AST 26 10 - 50 Units/L [facility] Blood 06/10/2022 7:45 PM LAB COURIER 06/10/2022 7:51 PM LAB COURIER Vasquez Lucero NP LAB BLOOD ORDERABLES Final Resul t [facility] [address] [facility] Department [place] [address] * (ABNORMAL) CBC with auto differential (06/10/2022 7:45 PM LAB COURIER) WBC 7.5 3.8 - 9.9 K/cumm [facility] Hgb 15.5 13.0 - 17.5 g/dL [facility] Hct 47.0 38.9 - 50.3 % [facility] Plt 146(L) 150 - 400 K/cumm [facility] MPV 11.2 9.1 - 12.3 fL [facility] RBC 4.84 4.30 - 5.80 M/cumm [facility] MCV 97.1(H) 81.3 - 96.4 fL [facility] MCH 32.0 27.1 - 33.3 pg [facility] MCHC 33.0 32.3 - 35.7 g/dL [facility] RDW CV 14.2 11.1 - 14.9 % [facility] RDW SD 50.5(H) 35.7 - 48.1 fL JUSTIN NRBC abs 0.00 0.00 - 0.01 K/cumm JUSTIN Blood (Blood, Venous) 06/10/2022 7:45 PM LAB COURIER 06/10/2022 7:51 PM LAB COURIER Vasquez Lucero NP LAB BLOOD ORDERABLES Final Resul t Performing Organization Address City/[facility] Co de Phone Number AXELTERRELL [address] [facility] Department [place] [address] * ECG 12 lead (06/10/2022 7:18 PM LAB COURIER) Pathologist [facility] Ventricular Rate EKG/Min 97 BPM [facility] Atrial Rate 90 BPM [facility] QRS-Interval (MSEC) 152 ms [facility] QT-Interval (MSEC) 382 ms [facility] QTc 485 ms [facility] R [place] -54 degrees [facility] T [place] 11 degrees [facility] Diagnosis Atrial fibrillation with premature ventricular or aberrantly conducted complexes Left axis deviation Right bundle branch block Abnormal ECG When compared with ECG of 04-AUG-2019 07:44, Right bundle branch block is now Present [facility] 06/10/2022 7:18 PM LAB COURIER 06/11/2022 8:58 PM LAB COURIER Vasquez Lucero NP ECG ORDERABLES Final Result Performing Organization Address [facility] de Phone Number [facility] documented in this encounter Visit Diagnoses Diagnosis Acute right-sided thoracic back pain- Primary documented in this encounter Administered Medications Inactive Administered Medications - up to 3 most recent administrations Medication Order MAR Action Action Date Dose Rate Site acetaminophen (TYLENOL) tablet 975 mg 975 mg (rounded from 1,000 mg), oral, Once, On 06/10/22 at 2359, For 1 dose Given 06/11/2022 12:16 AM LAB COURIER 975 mg aspirin chewable tablet 324 mg 324 mg, oral, Once, On 06/10/22 at 1932, For 1 dose, Indications: Chest PainIndications:Chest Pain Given 06/10/2022 7:49 PM LAB COURIER 324 mg iohexoL (OMNIPAQUE) 350 mg iodine/mL injection solution 100 mL 100 mL, intravenous, Once in imaging, contrast, Starting on 06/11/22 at 0019, For 1 dose Contrast Given 06/11/2022 12:21 AM LAB COURIER 80 mL Right Forearm naproxen (NAPROSYN) tablet 500 mg 500 mg, oral, Once, On 06/11/22 at 0136, For 1 dose Given 06/11/2022 1:41 AM LAB COURIER 500 mg traMADoL (ULTRAM) tablet 50 mg 50 mg, oral, Once, On 06/10/22 at 2359, For 1 dose Given 06/11/2022 12:16 AM LAB COURIER 50 mg documented in this encounter Discontinued Medications Medication Sig Discontinue Reason Start Date End Da te naproxen (NAPROSYN) 500 mg tablet Take 1 tablet (500 mg total) by mouth 2 (two) times a day with meals 01/04/2021 06/11/2022 documented as of this encounter Active and Recently Administered Medications Times are shown in LAB COURIER. Scheduled Medication Order 06/09/2022 06/10/2022 06/11/2022 acetaminophen (TYLENOL) tablet 975 mg (COMPLETED) 975 mg (rounded from 1,000 mg), oral, Once, On 06/10/22 at 2359, For 1 dose 0016 (Given - Provid er: Kristinaliza Davies) aspirin chewable tablet 324 mg (COMPLETED) 324 mg, oral, Once, On 06/10/22 at 1932, For 1 dose, Indications: Chest Pain 194 (Given - Provider: Anya Akers RN) naproxen (NAPROSYN) tablet 500 mg (COMPLETED) 500 mg, oral, Once, On 06/11/22 at 0136, For 1 dose 0141 (Given - Provid er: Monaliza Davies) traMADoL (ULTRAM) tablet 50 mg (COMPLETED) 50 mg, oral, Once, On 06/10/22 at 2359, For 1 dose 0016 (Given - Provid er: Monaliza Davies) PRN Medication Order 06/09/2022 06/10/2022 06/11/2022 iohexoL (OMNIPAQUE) 350 mg iodine/mL injection solution 100 mL (COMPLETED) 100 mL, intravenous, Once in imaging, contrast, Starting on 06/11/22 at 0019, For 1 dose 0021 (Contrast Given - Provider: Mary Gregorio, RT - Comment: PE r/o) documented in this encounter Orders IV Count Last Ordered Date First Orde red Date SALINE LOCK IV 1 06/10/2022 documented in this encounter Care Teams Food Mixer Repairer Relationship Specialty [place] [address] [place] [address] PCP - General Internal Medicine 06/11/19 No, Physician 05/18/18 documented as of this encounter
--- OUTSIDE RECORDS SUMMARY | 2024-05-14 16:52 | XMS_ITS | Encounter Summary ---
Author Organization [facility] Address [address] [facility] [address] [place] [address] Care Team Providers Care Supervisor Receiving And Processing Name Role Phone No, Physician Unavailable Vangie Valentine MD Primary Care Provider [phone] Encounter Details Date Type Department Care Team (Late st Contact Info) Description 09/09/[address] [facility] Pulmonology [address] [facility] [address] [place] [phone] Michelle Goodman MD [address] [facility] [address] [place] [address] Social History Tobacco Use Types Packs/Day Years Used Date Smoking Tobacco: Passive Smo ke Exposure - Never Smoker Smokeless Tobacco: Never Sex and Gender Information Value Date Recorded Sex Assigned at Not on file Legal Sex Male 8:36 AM CDT Gender Identity Not on file Sexual Orientation Not on file documented as of this encounter Ordered Prescriptions Prescription Sig Dispense Quantity Refills Last Filled Start Date End Date ipratropium-albut Kay (DUO-NEB) 0.5-2.5 mg/3 mL nebulizer solution Take 3 mL by nebulization every 6 (six) hours 360 mL 3 09/09/2019 documented in this encounter Miscellaneous Notes * Telephone Encounter - Karla Roberts RN - 09/09/2019 11:56 AM CDT Refill for Albuterol jamilah has been sent to pharmacy. Last Visit: 09/09/19 Follow Up: 12/05/19 * Telephone Encounter - Beatrice Dougherty - 09/09/2019 11:28 AM CDT Patient was called for a Televisit today. Patient asked if his regular meds could be sent to his pharmacy. He said it is [facility] [place] [address] documented in this encounter Plan of Treatment Not on file documented as of this encounter Visit Diagnoses Not on filedocumented in this encounter Discontinued Medications Medication Sig Discontinue Reason Start Date End Da te ipratropium-albuteroL (DUO-NEB) 0.5-2.5 mg/3 mL nebulizer solution as needed Reorder 08/11/2019 09/09/2019 documented as of this encounter Care Teams Supervisor Receiving And Processing Relationship Specialty Start Date End Date Vangie Valentine MD [address] [place] [id number] PCP - General Internal Medicine 06/11/19 No, Physician 05/18/18 documented as of this encounter
--- OUTSIDE RECORDS SUMMARY | 2024-05-14 16:52 | XMS_ITS | Encounter Summary ---
Author Organization [facility] Address [address] [facility] [address] [facility] [address] [place] [address] Care Team Providers Care Party Coordinator Name Role Phone No, Physician Unavailable Vangie Valentine MD Primary Care Provider [phone] Encounter Details Date Type Department Care Team (Late st Contact Info) Description 09/09/2019 Orders Only [facility] Pulmonology [address] [facility] [address] [place] [address] Karla Roberts RN Obstructive sleep apnea (Primary [...] Progress Notes * Karla Roberts RN - 09/09/2019 11:57 AM CDT Order for bipap increase has been sent to [facility] documented in this encounter Plan of Treatment Not on file documented as of this encounter Visit Diagnoses Diagnosis Obstructive sleep apnea- Primary Obstructive sleep apnea (adult) (pediatric) documented in this encounter Care Teams Party Coordinator Relationship Specialty Start Date End Date Vangie Valentine MD [address] [place] [address] [address] [place] [address] PCP - General Internal Medicine 06/11/19 No, Physician 05/18/18 documented as of this encounter
--- OUTSIDE RECORDS SUMMARY | 2024-05-14 16:52 | XMS_ITS | Encounter Summary ---
Author Organization [facility] Healthcare Address [address] [place] [id number] Care Team Providers Care Information Resources Manager Name Role Phone No, Physician Unavailable Vangie Valentine MD Primary Care Provider [phone] Reason for Visit * Reason Comments Abdominal Pain Encounter Details Date Type Department Care Team (Late st Contact Info) Description 03/23/2022 11:27 AM CDT - 03/23/2022 2:42 PM CDT Emergency [address] [address] Cellulitis of abdominal wall (Primary Dx) Discharge Disposition: Discharge to home [...] Sign Reading Time Taken Comments Blood Pressure 163/100 03/23/2022 2:11 PM CDT Pulse 74 03/23/2022 2:11 PM CDT Temperature 36.7 ??C (98 ??F) 03/23/2022 11:28 AM CDT Respiratory Rate 18 03/23/2022 2:11 PM CDT Oxygen Saturation 95% 03/23/2022 2:11 PM CDT Inhaled Oxygen Concentration - - Weight 133.3 kg (293 lb 14 oz) 03/23/2022 11:28 AM CDT Height 182.9 cm (6') 03/23/2022 11:28 AM CDT Body Mass Index 39.86 03/23/2022 11:28 AM CDT documented in this encounter Discharge Instructions * Discharge Instructions* Taryn Salvador PA - 03/23/2022 2:30 PM CDT Take the antibiotic as prescribed. Take the entire course of the antibiotic. Please follow up with your primary care doctor. Call today to arrange follow up. Return to the ED immediately with any new or worsening symptoms. * Attachments The following attachments cannot be sent through Care Everywhere. * Cellulitis (AfterCare(R) Instructions(ER/ED)) (Senegalese) documented in this encounter Medications at Time [...] 08/26/2019 simvastatin (ZOCOR) 40 mg tablet 08/11/2019 cephalexin (KEFLEX) 500 mg capsule Take 1 capsule (500 mg total) by mouth 4 (four) times a day for 7 days 28 capsule 03/23/2022 03/30/2022 naproxen (NAPROSYN) 500 mg tablet Take 1 [...] a day for 7 days 28 capsule 03/23/2022 2 documented in this encounter Discharge Disposition Disposition Code Departure Means Destination Discharge to home or self care documented in this encounter ED Notes * Taryn Salvador PA - 03/23/2022 2:13 PM CDT HPI Chief Complaint Patient presents with Abdominal Pain HPI 2:14 PM Mann Choudhury is a 61 y.o. male presenting to the ED c/o erythema to his abdomen for the past3 days. Has a h/o cellulitis. Also reports abd pain and bloating for the past 3 days. Denies nauseaand vomiting. Patient History: Past Medical History: Diagnosis Date Diabetes (HCC) Neuropathy (CMS/HCC) No past surgical history on file. Family History Problem Relation Age of Onset Emphysema Mother COPD Mother Heart failure Father Social History Tobacco Use Smoking status: Passive Smoke Exposure - Never Smoker Smokeless tobacco: Never Substance and Sexual Activity Drug use: Not on file Sexual activity: Not on file Alcohol Use: Not on file No current facility-administered medications for this encounter. Current Outpatient Medications: acetaminophen-codeine (TYLENOL with CODEINE #3) 300-30 mg per tablet aspirin 325 mg enteric coated tablet carvediloL (COREG) 6.25 mg tablet cephalexin (KEFLEX) 500 mg capsule digoxin (LANOXIN) 250 mcg (0.25 mg) tablet diltiazem (TIAZAC) 240 mg 24 hr capsule famotidine (PEPCID) 20 mg tablet furosemide (LASIX) 40 mg tablet gabapentin (NEURONTIN) 800 mg tablet glimepiride (AMARYL) 2 mg tablet Incruse Ellipta 62.5 mcg/actuation blister with device ipratropium-albuteroL (DUO-NEB) 0.5-2.5 mg/3 mL nebulizer solution lidocaine viscous (XYLOCAINE) 2 % solution metFORMIN XR (GLUCOPHAGE XR) 500 mg 24 hr tablet naproxen (NAPROSYN) 500 mg tablet simvastatin (ZOCOR) 40 mg tablet Review of Systems Review of Systems All systems reviewed and are neg or non contributory for this patients presentation today other than as stated in the HPI . Physical Exam ED Triage Vitals [03/23/22 1128] Temp Pulse Resp BP SpO2 36.7 ??C (98 ??F) 91 18 (!) 156/111 94 % Temp src Heart Rate Source Patient Position BP Location FiO2 (%) Oral Monitor Sitting Right arm -- Height Height Method Weight Weight Method 1.829 m (6') Stated 133.3 kg (293 lb 14 oz) Standing scale Physical Exam Vitals reviewed. Constitutional: General: He is not in acute distress. Appearance: He is well-developed. HENT: Head: Normocephalic and atraumatic. Right Ear: External ear normal. Left Ear: External ear normal. Nose: Nose normal. Mouth/Throat: Mouth: Mucous membranes are moist. Eyes: Extraocular Movements: Extraocular movements intact. Conjunctiva/sclera: Conjunctivae normal. Pulmonary: Effort: No respiratory distress. Abdominal: Palpations: Abdomen is soft. Tenderness: There is no abdominal tenderness. Hernia: A hernia is present. Hernia is present in the umbilical area. Comments: Erythema noted across the pt's abdomen. Musculoskeletal: General: Normal range of motion. Cervical back: Normal range of motion. Skin: General: Skin is warm and dry. Neurological: Mental Status: He is alert and oriented to person, place, and time. Mental status is at baseline. Psychiatric: Mood and Affect: Mood normal. Behavior: Behavior normal. Procedures MDM Labs Reviewed URINALYSIS AND REFLEX TO MICROSCOPIC AND CULTURE - Abnormal Result Value Color, ur Yellow Clarity, ur Cloudy (*) Specific gravity, ur 1.021 pH, urine 5.0 Protein, ur ql Negative Glucose, ur ql Negative Ketones, ur Negative Bilirubin, ur Negative Blood, ur Negative Urobilinogen, ur <2.0 Nitrite, ur Negative Leukocyte esterase, ur Negative UA reflex comment Reflex to microscopic UA will be performed. Narrative: Urine pH is affected by diet, medications, systemic acid-base disturbances, and renal tubular function. pH may affect urinary stone formation. For example, urine pH below 6.0 may help reduce the tendency for calcium phosphate stones and pH greater than 6.0 may reduce the tendency for uric acid stone formation. Source: [employer].Last revised 06-07-2017 COMPREHENSIVE METABOLIC PANEL - Abnormal Sodium 142 Potassium, pl 4.0 Chloride 105 CO2 31 Anion gap 6 BUN 18 Creatinine 0.50 (*) Glucose 101 Calcium 9.0 Bilirubin, total 0.3 Protein, pl 6.5 Albumin 3.7 Alk phos 74 ALT 37 AST 48 CBC WITH AUTO DIFFERENTIAL - Abnormal WBC 6.4 Hgb 13.8 Hct 43.2 Plt 130 (*) MPV 11.0 RBC 4.45 MCV 97.1 (*) MCH 31.0 MCHC 31.9 (*) RDW CV 14.0 RDW SD 50.1 (*) NRBC abs 0.00 DIFFERENTIAL AUTO - Abnormal Neutrophil abs 3.3 Imm gran abs 0.0 Lymphocyte abs 2.1 Monocyte abs 0.9 (*) Eosinophil abs 0.1 Basophil abs 0.0 Neutrophil pct 51.3 Imm gran pct 0.3 Lymphocyte pct 33.1 Monocyte pct 13.9 Eosinophil pct 1.1 Basophil pct 0.3 URINALYSIS, MICROSCOPIC ONLY - Abnormal WBC, ur 0-5 RBC, ur 0-2 Epithelial cells, squamous, ur 1-5 Mucous, ur Present (*) Culture Reflex Comment Value: Reflex conditions for urine culture (WBC >10) not met. LIPASE Lipase 19 EGFR eGFR 115 BP 163/100 (BP Location: Right arm, Patient Position: Sitting) Pulse 74 Temp 36.7 ??C (98 ??F) (Oral) Resp 18 Ht 182.9 cm (6') Wt 133.3 kg (293 lb 14 oz) SpO2 95% BMI 39.86 kg/m?? [facility] ED Course as of 03/23/22 1704 Time: 03/23 1423 Comment: Recommended CT scan abd/pelvis for further evaluation given abd pain and bloating. Pt refused CT scan. States he is claustrophobic. Explained the CT scan and pt still declined. Explained that I cannot rule out any other potential causes of his sx without a CT scan and the pt is aware. Willdischarge with keflex to cover for cellulitis. Recommended close PCP follow up. Pt understands and agrees. All questions answered. By: Taryn Salvador PA This examination was transcribed using the [employer] voice recognition system without human women's lacrosse coach. In an effort to expedite patient care, this report has not been adjusted for typographical, grammatical, and syntax by a trained medical staff coordinator. Close outpatient follow-up with a low threshold to return has been mandated , concerning symptoms have been emphasized in detail, and this patient expresses understanding Clinical Impression: Cellulitis of abdominal wall Taryn Salvador PA 03/23/22 1704 Cosigned by Larissa Alvarado MD at 03/23/2022 11:38 PM CDT * Karrie Asthon RN - 03/23/2022 12:27 PM CDT Pt is refusing IV placement at this time. Provider made aware. Karrie Ashton RN 03/23/22 1227 * Jackie Quiroz RN - 03/23/2022 11:42 AM CDT Pt reports abd pain, redness to abd , enlarged abd.x 3 days.Pt reports hx of cellulitis to his abd,pt also admits to being bloated . A has gain 6 lds in the last 4 days.pt also reports diffused abd p[ain. documented in this encounter Plan of Treatment Not on file documented as of this encounter Procedures Procedure Name Priority Date/Time Associated Diagnosis Comments URINALYSIS AND REFLEX TO MICROSCOPIC AND CULTURE STAT 03/23/2022 12:31 PM CDT URINALYSIS, MICROSCOPIC ONLY STAT 03/23/2022 12:31 PM CDT EGFR STAT 03/23/2022 12:24 PM CDT DIFFERENTIAL AUTO STAT 03/23/2022 12: 24 PM CDT CBC WITH AUTO DIFFERENTIAL STAT 03/23/2022 12:24 PM CDT LIPASE STAT 03/23/2022 12:24 PM CDT COMPREHENSIVE METABOLIC PANEL STAT 03/23/2022 12:24 PM CDT documented in this encounter Results * (ABNORMAL) Urinalysis, microscopic only (03/23/2022 12:31 PM CDT) WBC, ur 0-5 0 - 5 /HPF [facility] RBC, ur 0-2 0 - 2 /HPF [facility] Epithelial cells, squamous, ur 1-5 0 - 5 /HPF [facility] Mucous, ur Present(A) [facility] Culture Reflex Comment Reflex conditions for urine culture (WBC >10) not met. [facility] Urine 03/23/2022 12:3 1 PM CDT 03/23/2022 12:34 PM CDT us Taryn RAO LAB URINE ORDERABLES Final Resul t [facility] [address] [facility] [place] [address] * (ABNORMAL) Urinalysis reflex to microscopic and culture Urine (03/23/2022 12:31 PM CDT) Color, ur Yellow Yellow [facility] Clarity, ur Cloudy(A) Clear [facility] Specific gravity, ur 1.021 1.003 - 1.030 [facility] pH, urine 5.0 [facility] Protein, ur ql Negative Negative [facility] Glucose, ur ql Negative Negative [facility] Ketones, ur Negative Negative [facility] Bilirubin, ur Negative Negative [facility] Blood, ur Negative Negative [facility] Urobilinogen, ur <2.0 <2.0 mg/dL [facility] Nitrite, ur Negative Negative [facility] Leukocyte esterase, ur Negative Negative [facility] UA reflex comment Reflex to microscopic UA will be performed. [facility] Urine 03/23/2022 12:3 1 PM CDT 03/23/2022 12:34 PM CDT Narrative [facility] - 03/23/2022 12:39 PM CDT ?? Urine pH is affected by diet, medications, systemic acid-base disturbances, and renal tubular function. ??pH may affect urinary stone formation. ??For example, urine pH below 6.0 may help reduce the tendency for calcium phosphate stones and pH greater than 6.0 may reduce the tendency for uric acid stone formation. Source: [facility] [employer] ([employer]). Last revised 06-07-2017 Taryn RAO LAB MICROBIOLOGY - GENERAL ORDER JAYASHREE Final Result [facility] [address] [facility] [place] [address] * eGFR (03/23/2022 12:24 PM CDT) eGFR 115 mL/min/1. 73 m2 [facility] Comment: Interpretive Data Reference Interval Normal ?>/= [...] interpretive data was last reviewed 2021. Blood 03/23/2022 12:2 4 PM CDT 03/23/2022 12:28 PM CDT us Taryn RAO LAB BLOOD ORDERABLES Final Resul t [place] [id number] [facility] [place] [address] * (ABNORMAL) Differential, auto (03/23/2022 12:24 PM CDT) Pathologist [facility] Neutrophil abs 3.3 1.7 - 6.5 K/cumm [facility] Imm gran abs 0.0 0.0 - 0.1 K/cumm [facility] Lymphocyte abs 2.1 0.8 - 3.3 K/cumm [facility] Monocyte abs 0.9(H) 0.2 - 0.8 K/cumm [facility] Eosinophil abs 0.1 0.0 - 0.5 K/cumm [facility] Basophil abs 0.0 0.0 - 0.1 K/cumm [facility] Neutrophil pct 51.3 % [facility] Comment: Interpretive Data Percent cell count reference ranges are not reported, since discordance with absolute values may lead to misinterpretation of CBC data. Current Interpretive Data was last revised on 2017. Imm gran pct 0.3 % [facility] Comment: Interpretive Data Percent cell count reference ranges are not reported, since discordance with absolute values may lead to misinterpretation of CBC data. Current Interpretive Data was last revised on 2017. Lymphocyte pct 33.1 % [facility] Comment: Interpretive Data Percent cell count reference ranges are not reported, since discordance with absolute values may lead to misinterpretation of CBC data. Current Interpretive Data was last revised on 2017. Monocyte pct 13.9 % [facility] Comment: Interpretive Data Percent cell count reference ranges are not reported, since discordance with absolute values may lead to misinterpretation of CBC data. Current Interpretive Data was last revised on 2017. Eosinophil pct 1.1 % [facility] Comment: Interpretive Data Percent cell count reference ranges are not reported, since discordance with absolute values may lead to misinterpretation of CBC data. Current Interpretive Data was last revised on 2017. Basophil pct 0.3 % [facility] Comment: Interpretive Data Percent cell count reference ranges are not reported, since discordance with absolute values may lead to misinterpretation of CBC data. Current Interpretive Data was last revised on 2017. Blood 03/23/2022 12:2 4 PM CDT 03/23/2022 12:28 PM CDT Taryn RAO LAB BLOOD ORDERABLES Final Resul t Performing Organization Address [facility] de Phone Number [address] [address] * Lipase (03/23/2022 12:24 PM CDT) [facility] Lipase 19 10 - 99 Units/L [facility] Blood 03/23/2022 12:2 4 PM CDT 03/23/2022 12:28 PM CDT Taryn RAO LAB BLOOD ORDERABLES Final Resul t Performing Organization Address [facility] de Phone Number [address] [address] * (ABNORMAL) CBC with auto differential (03/23/2022 12:24 PM CDT) [facility] WBC 6.4 3.8 - 9.9 K/cumm [facility] Hgb 13.8 13.0 - 17.5 g/dL [facility] Hct 43.2 38.9 - 50.3 % [facility] Plt 130(L) 150 - 400 K/cumm [facility] MPV 11.0 9.1 - 12.3 fL [facility] RBC 4.45 4.30 - 5.80 M/cumm [facility] MCV 97.1(H) 81.3 - 96.4 fL [facility] MCH 31.0 27.1 - 33.3 pg [facility] MCHC 31.9(L) 32.3 - 35.7 g/dL [facility] RDW CV 14.0 11.1 - 14.9 % [facility] RDW SD 50.1(H) 35.7 - 48.1 fL [facility] NRBC abs 0.00 0.00 - 0.01 K/cumm [facility] Blood 03/23/2022 12:2 4 PM CDT 03/23/2022 12:28 PM CDT us Taryn RAO LAB BLOOD ORDERABLES Final Resul t [place] [id number] [facility] [place] [address] * (ABNORMAL) Comprehensive metabolic panel (03/23/2022 12:24 PM CDT) Sodium 142 135 - 145 mmol/L [facility] Potassium, pl 4.0 3.3 - 4.9 mmol/L [facility] Chloride 105 97 - 110 mmol/L [facility] CO2 31 22 - 32 mmol/L [facility] Anion gap 6 2 - 15 mmol/L [facility] BUN 18 8 - 25 mg/dL [facility] Creatinine 0.50(L) 0.80 - 1.30 mg/dL [facility] Glucose 101 70 - 199 mg/dL [facility] Comment: Interpretive Data Fasting glucose >/= 126 [...] interpretive data was last revised 2017. Calcium 9.0 8.5 - 10.3 mg/dL [facility] Bilirubin, total 0.3 0.1 - 1.2 mg/dL [facility] Protein, pl 6.5 6.5 - 8.5 g/dL [facility] Albumin 3.7 3.5 - 5.0 g/dL [facility] Alk phos 74 40 - 130 Units/L [facility] ALT 37 7 - 55 Units/L [facility] AST 48 10 - 50 Units/L [facility] Blood 03/23/2022 12:2 4 PM CDT 03/23/2022 12:28 PM CDT us Taryn RAO LAB BLOOD ORDERABLES Final Resul t Performing Organization Address City/State/[facility] Co de Phone Number [facility] [address] [facility] [place] [address] documented in this encounter Visit Diagnoses Diagnosis Cellulitis of abdominal wall- Primary Cellulitis and abscess of trunk documented in this encounter Care Teams Information Resources Manager Relationship Specialty Start Date End Date Vangie Valentine MD [address] [place] [id number] PCP - General Internal Medicine 06/11/19 No, Physician 05/18/18 documented as of this encounter
--- OUTSIDE RECORDS SUMMARY | 2024-05-14 16:52 | XMS_ITS | Encounter Summary ---
Author Organization [facility] Healthcare Address [address] [place] [address] Care Team Providers Care Internet And E [employer] Project Manager Name Role Phone No, Physician Unavailable Vangie Valentine MD Primary Care Provider [phone] Encounter Details Date Type Department Care Team (Late st Contact Info) Description 01/05/[address] [address] [place] Elliott, RAYMOND Social History Tobacco Use Types Packs/Day Years [...] on filedocumented in this encounter Care Teams [employer] Project Manager Relationship Specialty [place] [address] [place] [address] [address] [place] [address] PCP - General Internal Medicine 06/11/19 Dee Physician 05/18/18 documented as of this encounter
--- OUTSIDE RECORDS SUMMARY | 2024-05-14 16:52 | XMS_ITS | Encounter Summary ---
Author Organization [facility] Address [address] [place] [address] Care Team Providers Care Fitness Specialist Name Role Phone No, Physician Unavailable Vangie Valentine MD Primary Care Provider [phone] Reason for Visit * Reason Comments Dental Pain Encounter Details Date Type Department Care Team (Late st Contact Info) Description 01/04/2021 2:10 PM CDT - 01/04/2021 2:11 PM CDT Emergency [address] [address] Pain, dental (Primary Dx); Dental caries; Dental abscess Discharge Disposition: Discharge to home or self [...] Sign Reading Time Taken Comments Blood Pressure 164/115 01/04/2021 11:10 AM CDT Pulse 104 01/04/2021 11:10 AM CDT Temperature 36.6 ??C (97.9 ??F) 01/04/2021 9:43 AM CD T Respiratory Rate 20 01/04/2021 11:1 0 AM CDT Oxygen Saturation 93% 01/04/2021 11: 10 AM CDT Inhaled Oxygen Concentration - - Weight 141.6 kg (312 lb 2.7 oz) 01/04/2021 9:43 AM CDT Height 182.9 cm (6') 01/04/2021 9:43 AM CDT Body Mass Index 42.34 01/04/2021 9:43 AM CDT documented in this encounter Discharge Instructions * Discharge Instructions* Tram Dykes PA - 01/04/2021 11:28 AM CDT Take all medications as directed. Follow-up with dentist for definitive management. Return to emergency room for new or worsening symptoms. * Attachments The following attachments cannot be sent through Care Everywhere. * Dental Abscess (AfterCare(R) Instructions(ER/ED)) (Maltese) * Incision and Drainage (AfterCare(R) Instructions(ER/ED)) (Maltese) documented in this encounter Medications at Time [...] 08/26/2019 simvastatin (ZOCOR) 40 mg tablet 08/11/2019 clindamycin (Cleocin HCL) 300 mg capsule Take 1 capsule (300 mg total) by mouth 4 (four) times a day for 10 days 40 capsule 01/04/2021 01/14/2021 naproxen (NAPROSYN) 500 mg tablet Take 1 tablet (500 mg total) by mouth 2 (two) times a day with meals 30 tablet 01/04/2021 06/11/2022 documented as of this encounter Ordered Prescriptions Prescription Sig Dispense Quantity Refills Last Filled Start Date End Date acetaminophen-code ine (TYLENOL with CODEINE #3) 300-30 mg per tablet Take 1-2 tablets by mouth every 6 (six) hours as needed for pain 15 tablet 01/04/2021 lidocaine viscous (XYLOCAINE) 2 % solution Take 10 mL by mouth 3 (three) times a day 100 mL 01/04/2021 naproxen (NAPROSYN) 500 mg tablet Take 1 tablet (500 mg total) by mouth 2 (two) times a day with meals 30 tablet 01/04/2021 clindamycin (Cleocin HCL) 300 mg capsule Take 1 capsule (300 mg total) by mouth 4 (four) times a day for 10 days 40 capsule 01/04/2021 1 documented in this encounter Discharge Disposition Disposition Code Departure Means Destination Discharge to home or self care documented in this encounter ED Notes * Temitope Elliott RN - 01/04/2021 2:11 PM CDT This RN attempted to call the pt as a discharge follow up with no success. No VM was left at this time due to the mailbox being full. Temitope Elliott RN 01/05/21 [id number] * Tram Dykes PA - 01/04/2021 10:06 AM CDTAssociated Order(s): Incision and Drainage HPI Chief Complaint Patient presents with ??? Dental Pain HPI 10:06 AM Mann Choudhury is a 60 y.o. male presenting to the ED c/o dental pain x 2 days. Pt c/o right upper dental pain and redness x 2 days. Has been running fevers up to 102 and c/o nausea. Patient History: Past Medical History: Diagnosis Date ??? Diabetes (CMS/HCC) ??? Neuropathy (CMS/HCC) No past surgical history on file. Family History Problem Relation Age of Onset ??? Emphysema Mother ??? COPD Mother ??? Heart failure Father Social History Tobacco Use ??? Smoking status: Passive Smoke Exposure - Never Smoker ??? Smokeless tobacco: Never Used Substance Use Topics ??? Alcohol use: Not on file ??? Drug use: Not on file No current facility-administered medications for this encounter. Current Outpatient Medications: ??? acetaminophen-codeine (TYLENOL with CODEINE #3) 300-30 mg per tablet ??? aspirin 325 mg enteric coated tablet ??? carvediloL (COREG) 6.25 mg tablet ??? clindamycin (Cleocin HCL) 300 mg capsule ??? digoxin (LANOXIN) 250 mcg (0.25 mg) tablet ??? diltiazem (TIAZAC) 240 mg 24 hr capsule ??? furosemide (LASIX) 40 mg tablet ??? gabapentin (NEURONTIN) 800 mg tablet ??? glimepiride (AMARYL) 2 mg tablet ??? Incruse Ellipta 62.5 mcg/actuation blister with device ??? ipratropium-albuteroL (DUO-NEB) 0.5-2.5 mg/3 mL nebulizer solution ??? lidocaine viscous (XYLOCAINE) 2 % solution ??? metFORMIN XR (GLUCOPHAGE XR) 500 mg 24 hr tablet ??? naproxen (NAPROSYN) 500 mg tablet ??? simvastatin (ZOCOR) 40 mg tablet Review of Systems Review of Systems All systems reviewed and are neg or non contributory for this patients presentation today other than as stated in the HPI . Physical Exam ED Triage Vitals [01/04/21 0943] Temp Pulse Resp BP SpO2 36.6 ??C (97.9 ??F) 110 25 (!) 163/117 94 % Temp src Heart Rate Source Patient Position BP Location FiO2 (%) Temporal Monitor Sitting Right arm -- Physical Exam Vitals and nursing note reviewed. Constitutional: Appearance: He is well-developed. He is obese. HENT: Head: Normocephalic and atraumatic. Mouth/Throat: Comments: Dental caries, no abscess visualized Eyes: Conjunctiva/sclera: Conjunctivae normal. Cardiovascular: Rate and Rhythm: Normal rate and regular rhythm. Heart sounds: Normal heart sounds. No murmur heard. Pulmonary: Effort: Pulmonary effort is normal. No respiratory distress. Breath sounds: Normal breath sounds. Abdominal: Palpations: Abdomen is soft. Tenderness: There is no abdominal tenderness. Musculoskeletal: Cervical back: Neck supple. Skin: General: Skin is warm and dry. Neurological: Mental Status: He is alert and oriented to person, place, and time. 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/aircraft sales representative/guardian agrees and accepts Patient's stated name/ matches armband: Yes Allergies confirmed: yes Imaging: Pertinent imaging reviewed, correctly oriented and match to patient identifiers Type: Abscess Location: Mouth Mouth location: Alveolar process Skin preparation: Antiseptic wash Anesthesia method: None Incision types: Stab incision (punctured w/ 18 guage needle) Wound management: Irrigated with saline Drainage: Purulent Drainage amount: Moderate Wound treatment: Wound left open Packing materials: None Patient tolerance of procedure: Tolerated well, no immediate complications MDM Labs Reviewed CBC WITH AUTO DIFFERENTIAL - Abnormal Result Value WBC 7.4 Hgb 15.7 Hct 48.7 Plt 145 (*) MPV 11.5 RBC 5.03 MCV 96.8 (*) MCH 31.2 MCHC 32.2 (*) RDW CV 12.9 RDW SD 46.3 NRBC abs 0.00 COMPREHENSIVE METABOLIC PANEL - Abnormal Sodium 141 Potassium, pl 4.2 Chloride 101 CO2 31 Anion gap 9 BUN 19 Creatinine 0.60 (*) Glucose 105 Calcium 9.4 Bilirubin, total 0.7 Protein, pl 7.2 Albumin 4.3 Alk phos 75 ALT 20 AST 27 DIFFERENTIAL AUTO - Abnormal Neutrophil abs 4.4 Imm gran abs 0.0 Lymphocyte abs 2.0 Monocyte abs 0.9 (*) Eosinophil abs 0.1 Basophil abs 0.0 Neutrophil pct 60.2 Imm gran pct 0.1 Lymphocyte pct 26.5 Monocyte pct 11.8 Eosinophil pct 1.1 Basophil pct 0.3 EGFR eGFR 108 BP (!) 164/115 (BP Location: Right arm, Patient Position: Sitting) Pulse 104 Temp 36.6 ??C (97.9 ??F) (Temporal) Resp 20 Ht 182.9 cm (6') Wt (!) 141.6 kg (312 lb 2.7 oz) SpO2 93% BMI 42.34 kg/m?? [facility] ED Course as of Jan 05 1132 Time: 01/05 1108 Comment: Pt is afebrile here. No leukocytosis. Does have diffuse chronic periodontal disease w/ dental caries and possible small dental abscess. By: Tram Dykes PA Time: 01/05 1128 Comment: I&D performed, see procedure note. Pt tolerated well. Feeling much better after procedure. Will discharge on abx w/ dental follow up. Return precautions provided. By: Tram Dykes PA This examination was transcribed using the [employer] voice recognition system without human children's ministry director. In an effort to expedite patient care, this report has not been adjusted for typographical, grammatical, and syntax by a trained medical care manager. Clinical Impression: Pain, dental Dental caries Dental abscess Tram Dykes PA 01/04/212 Cosigned by Jackie Arce MD at 01/04/2021 6:32 PM CDT * Tita Villaseñor RN - 01/04/2021 9:48 AM CDT Patient reports that his tooth is broken and now has an infection. documented in this encounter Plan of Treatment Not on file documented as of this encounter Procedures Procedure Name Priority Date/Time Associated Diagnosis Comments LA DRG ABSC RAILROAD DISPATCHER HMTMA FROM DENTOALVEOLAR STRUXS Routine 01/04/2021 11:28 AM CDT XR ORTHOPANTOGRAM/PANOREX ED 01/04/2021 10:25 AM CDT EGFR STAT 01/04/2021 9:56 AM CDT DIFFERENTIAL AUTO STAT 01/04/2021 9:5 6 AM CDT CBC WITH AUTO DIFFERENTIAL STAT 01/04/2021 9:56 AM CDT COMPREHENSIVE METABOLIC PANEL STAT 01/04/2021 9:56 AM CDT documented in this encounter Results * LA DRG ABSC RAILROAD DISPATCHER HMTMA FROM DENTOALVEOLAR STRUXS (01/04/2021 11:28 AM CDT) Narrative Jackie Arce MD - 01/04/2021 11:28 AM CDT Tram Dykes PA ? 01/04/2021 11:32 AM Incision and Drainage Date/Time: 01/04/2021 11:28 AM Performed by: Tram Dykes PA Authorized by: Tram Dykes PA Informed consent: ??Risks, benefits, alternatives discussed and patient/aircraft sales representative/guardian agrees and accepts Patient's stated name/ matches armband: ??Yes Allergies confirmed: yes ?? Imaging: ??Pertinent imaging reviewed, correctly oriented and match to patient identifiers Type: ??Abscess Location: ??Mouth Mouth location: ??Alveolar process Skin preparation: ??Antiseptic wash Anesthesia method: ??None Incision types: ??Stab incision (punctured w/ 18 guage needle) Wound management: ??Irrigated with saline Drainage: ??Purulent Drainage amount: ??Moderate Wound treatment: ??Wound left open Packing materials: ??None Patient tolerance of procedure: ??Tolerated well, no immediate complications us Tram RAO IN CLINIC/BEDSIDE ORDERA BLES Final Result * XR Orthopantogram Panorex (01/04/2021 10:25 AM CDT) Anatomical Region Laterality Modality Head and Neck N/A Computed Radiogr aphy 01/04/2021 10:3 2 AM CDT Narrative 01/04/2021 10:37 AM CDT EXAM DESCRIPTION: ?? XR ORTHOPANTOGRAM/PANOREX REASON FOR STUDY: ?? dental pain ??Pain to front maxillary teeth attn 7th from rt side ?? TECHNIQUE: ??Panoramic radiograph of the mandible and maxilla. COMPARISON: ?? None available FINDINGS: MANDIBLE: ??No acute fracture. No disruption of the right or left temporomandibular joints. Teeth: There is a large dental dina involving the right maxillary lateral incisor, tooth 7 with there is also a subtle periapical lucency. ??There are large dental caries involving the 1st molars and premolars bilaterally in the mandible. ??There is a dental dina and periapical lucency involving tooth 21, a left mandibular premolar. SINUSES: ??No mucosal thickening. No air fluid levels. OTHER: ??No other significant finding. IMPRESSION: ?? 1. ??Large dental dina and periapical lucency involving tooth 7, a right maxillary lateral incisor suggestive of periodontal abscess. 2. ??Multiple dental caries and missing teeth as well as periodontal disease involving a left mandibular premolar. THIS IS AN ELECTRONICALLY VERIFIED FINAL REPORT 01/04/2021 10:37 AM - Electronically signed by John Adams M.D. KN D: ??01/04/2021 10:37 AM T: Report ID: [id number] Reading Location: ??[id number] Procedure Note John Adams MD - 01/04/2021 EXAM DESCRIPTION: XR ORTHOPANTOGRAM/PANOREX REASON FOR STUDY: dental pain Pain to front maxillary teeth attn 7thfrom rt side TECHNIQUE: Panoramic radiograph of the mandible and maxilla. COMPARISON: None available FINDINGS: MANDIBLE: No acute fracture. No disruption of the right or left temporomandibular joints. Teeth: There is a large dental dina involving the right maxillary lateral incisor, tooth 7 with there is also a subtle periapical lucency. Thereare large dental caries involving the 1st molars and premolars bilaterally inthe mandible. There is a dental dina and periapical lucency involving tooth21, a left mandibular premolar. SINUSES: No mucosal thickening. No air fluid levels. OTHER: No other significant finding. IMPRESSION: 1. Large dental dina and periapical lucency involving tooth 7, a right maxillary lateral incisor suggestive of periodontal abscess. 2. Multiple dental caries and missing teeth as well as periodontaldisease involving a left mandibular premolar. THIS IS AN ELECTRONICALLY VERIFIED FINAL REPORT 01/04/2021 10:37 AM - Electronically signed by John KILPATRICK T: Report ID: [id number] Reading Location: [place] [address] Tram RAO IMG XR PROCEDURES Final Result * eGFR (01/04/2021 9:56 AM CDT) eGFR 108 mL/min/1.7 3 m2 [facility] Comment: Interpretive Data Reference Interval Normal ?>/= 90 mL/min/1.73m2 Mildly decreased* ? 60 - 89 mL/min/1.73m2 Mildly to moderately decreased ?45 - 59 mL/min/1.73m2 Moderately to severely decreased ??30 - 44 mL/min/1.73m2 Severely decreased ?15 - 29 mL/min/1.73m2 Kidney Failure ?< 15 ??mL/min/1.73m2 *Relative to young adult level Estimated glomerular filtration rate is determined by the CKD-EPI equation recommended by the National Kidney Foundation (KDIGO 2012 Clinical Practice Guideline for the Evaluation and Management of Chronic Kidney Disease. Kidney Intnl Suppl May 2012;3:1). The CKD-EPI equation should not be used for patients with unstable renal function and has not been validated in children and those over 70. Current interpretive data was last reviewed 2020 Blood specimen (specimen) 01/04/2021 9:56 AM CDT 01/04/2021 10:03 AM CDT Tram RAO LAB BLOOD ORDERABLES Fin al Result [facility] [address] [facility] Department [place] [address] * (ABNORMAL) Differential, auto (01/04/2021 9:56 AM CDT) Neutrophil abs 4.4 1.7 - 6.5 K/cumm [facility] Imm gran abs 0.0 0.0 - 0.1 K/cumm [facility] Lymphocyte abs 2.0 0.8 - 3.3 K/cumm [facility] Monocyte abs 0.9(H) 0.2 - 0.8 K/cumm [facility] Eosinophil abs 0.1 0.0 - 0.5 K/cumm [facility] Basophil abs 0.0 0.0 - 0.1 K/cumm [facility] Neutrophil pct 60.2 % [facility] Comment: Interpretive Data Percent cell count reference ranges are not reported, since discordance with absolute values may lead to misinterpretation of CBC data. Current Interpretive Data was last revised on 2017. Imm gran pct 0.1 % [facility] Comment: Interpretive Data Percent cell count reference ranges are not reported, since discordance with absolute values may lead to misinterpretation of CBC data. Current Interpretive Data was last revised on 2017. Lymphocyte pct 26.5 % [facility] Comment: Interpretive Data Percent cell count reference ranges are not reported, since discordance with absolute values may lead to misinterpretation of CBC data. Current Interpretive Data was last revised on 2017. Monocyte pct 11.8 % [facility] Comment: Interpretive Data Percent cell count reference ranges are not reported, since discordance with absolute values may lead to misinterpretation of CBC data. Current Interpretive Data was last revised on 2017. Eosinophil pct 1.1 % [facility] Comment: Interpretive Data Percent cell count reference ranges are not reported, since discordance with absolute values may lead to misinterpretation of CBC data. Current Interpretive Data was last revised on 2017. Basophil pct 0.3 % [facility] Comment: Interpretive Data Percent cell count reference ranges are not reported, since discordance with absolute values may lead to misinterpretation of CBC data. Current Interpretive Data was last revised on 2017. Blood specimen (specimen) 01/04/2021 9:56 AM CDT 01/04/2021 10:20 AM CDT Tram RAO LAB BLOOD ORDERABLES [facility] al Result [facility] [address] [facility] Department [place] [address] * (ABNORMAL) Comprehensive metabolic panel (01/04/2021 9:56 AM CDT) Sodium 141 135 - 145 mmol/L [facility] Potassium, pl 4.2 3.3 - 4.9 mmol/L [facility] Chloride 101 97 - 110 mmol/L [facility] CO2 31 22 - 32 mmol/L [facility] Anion gap 9 2 - 15 mmol/L [facility] BUN 19 8 - 25 mg/dL [facility] Creatinine 0.60(L) 0.80 - 1.30 mg/dL [facility] Glucose 105 70 - 199 mg/dL [facility] Comment: Interpretive Data Fasting glucose [...] 2017. Calcium 9.4 8.5 - 10.3 mg/dL [facility] Bilirubin, total 0.7 0.1 - 1.2 mg/dL [facility] Protein, pl 7.2 6.5 - 8.5 g/dL [facility] Albumin 4.3 3.5 - 5.0 g/dL [facility] Alk phos 75 40 - 130 Units/L [facility] ALT 20 7 - 55 Units/L [facility] AST 27 10 - 50 Units/L [facility] Blood specimen (specimen) 01/04/2021 9:56 AM CDT 01/04/2021 10:03 AM CDT Tram RAO LAB BLOOD ORDERABLES Fin al Result [facility] [address] [facility] Department [place] [address] * (ABNORMAL) CBC with auto differential (01/04/2021 9:56 AM CDT) Pathologist [facility] WBC 7.4 3.8 - 9.9 K/cumm [facility] Hgb 15.7 13.0 - 17.5 g/dL [facility] Hct 48.7 38.9 - 50.3 % [facility] Plt 145(L) 150 - 400 K/cumm [facility] MPV 11.5 9.1 - 12.3 fL [facility] RBC 5.03 4.30 - 5.80 M/cumm [facility] MCV 96.8(H) 81.3 - 96.4 fL [facility] MCH 31.2 27.1 - 33.3 pg [facility] MCHC 32.2(L) 32.3 - 35.7 g/dL [facility] RDW CV 12.9 11.1 - 14.9 % [facility] RDW SD 46.3 35.7 - 48.1 fL [facility] NRBC abs 0.00 0.00 - 0.01 K/cumm [facility] Blood specimen (specimen) 01/04/2021 9:56 AM CDT 01/04/2021 10:20 AM CDT Tram RAO LAB BLOOD ORDERABLES Fin al Result [facility] [facility] Department [place] [address] documented in this encounter Visit Diagnoses Diagnosis Pain, dental- Primary Dental caries Unspecified dental caries Dental abscess Periapical abscess without sinus documented in this encounter Care Teams Fitness Specialist Relationship Specialty Start Date End Date Vangie Valentine MD [address] [place] [id number] PCP - General Internal Medicine 06/11/19 No, Physician 05/18/18 documented as of this encounter
--- OUTSIDE RECORDS SUMMARY | 2024-05-14 16:52 | XMS_ITS | Encounter Summary ---
Author Organization [facility] Address [address] [facility] [address] [place] [address] Care Team Providers Care Platform Mill Supervisor Name Role Phone No, Physician Unavailable Vangie Valentine MD Primary Care Provider [phone] Encounter Details Date Type Department Care Team (Late st Contact Info) Description 08/05/2019 Orders Only [facility] Health Information Management [address] [place] [address] Scanning, Provider Social History Tobacco Use Types Packs/Day Years [...] Procedure Name Priority Date/Time Associated Diagnosis Comments PULMONARY - RESULT SCAN 08/05/2019 documented in this encounter Results * PULMONARY - RESULT SCAN (08/05/2019) Anatomical Region Laterality Modality Other us Provider Scanning Final Result documented in this encounter Visit Diagnoses Not on filedocumented in this encounter Care Teams Platform Mill Supervisor Relationship Specialty Start Date End Date Vangie Valentine MD [address] [place] [address] [address] [place] [address] PCP - General Internal Medicine 06/11/19 No Physician 05/18/18 documented as of this encounter
--- OUTSIDE RECORDS SUMMARY | 2024-05-14 16:52 | XMS_ITS | Encounter Summary ---
Author Organization [facility] Address [address] [place] [address] Care Team Providers Care Certified Personal Finance Counselor Name Role Phone No, Physician Unavailable Vangie Valentine MD Primary Care Provider [phone] Reason for Visit * Reason Comments TELEVISIT Encounter Details Date Type Department Care Team (Late st Contact Info) Description 09/09/2019 8:15 AM CDT Telemedicine [facility] Pulmonology [address] [place] [address] [place] [address] [place] [address] [address] [place] [address] Obstructive sleep apnea (Primary Dx); Pulmonary hypertension (CMS/HCC); Non-seasonal allergic rhinitis due to pollen; Shortness of breath; Hypoxemia; Morbid obesity (CMS/HCC); Non-smoker; Fatigue, unspecified type Social History Tobacco Use Types Packs/Day Years [...] Sign Reading Time Taken Comments Blood Pressure - - Pulse - - Temperature - - Respiratory Rate - - Oxygen Saturation - - Inhaled Oxygen Concentration - - Weight 136.1 kg (300 lb) 09/09/2019 11:02 AM CDT Height - - Body Mass Index 40.69 08/04/2019 1:41 PM CDT documented in this encounter Progress Notes * Michelle Goodman MD - 09/09/2019 8:15 AM CDT Subjective/Objective Patient ID: Mann Choudhury is a 59 y.o. male. Chief Complaint Chief Complaint Patient presents with ??? TELEVISIT HPI Active pulmonary problem list: ?History of pneumonia. ?Shortness of breath. ?Obstructive sleep apnea on BiPAP 18/8. Fatigue. Restrictive lung defect, FEV1 30%, FVC 28%, FEV1/FVC 82%, TLC 46%, DLCO 44%,BD-(2019) ?Atrial fibrillation. ?Hypoxemia. ?No history of smoking. ?Patient here for follow-up. This is a telemedicine visit. He was in the hospital backin July of 2019 for community-acquired pneumonia. He was treated successfully was discharged. Patient has been using Ventolin HFA as needed bases. He is using albuterol and Atrovent via nebulizer onas needed basis. He does not use any maintenance treatment. His PFTs showed restrictive lung defect. He has been using BiPAP 18/8 during the night. No side effects with the BiPAP. No chest pain, indigestion or bloating with BiPAP. He continued to have sleepiness after using BiPAP. He feels the pressure of the BiPAP is not enough. He is still having significant shortness of breath with activity. 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 No Known Allergies Review of Systems Constitutional: Positive for fatigue. Negative for appetite change, chills and fever. HENT: Positive for postnasal drip. Negative for congestion, ear pain, mouth sores, tinnitus and voice change. Eyes: Negative for photophobia and pain. Respiratory: Positive for cough and shortness of breath. Negative for choking and stridor. Cardiovascular: Negative for chest pain and palpitations. Gastrointestinal: Negative for abdominal distention, abdominal pain and nausea. Endocrine: Negative for cold intolerance and polyphagia. Genitourinary: Negative for dysuria and hematuria. Musculoskeletal: Negative for gait problem and joint swelling. Skin: Negative for pallor and rash. Allergic/Immunologic: Negative for immunocompromised state. Neurological: Negative for seizures and facial asymmetry. Hematological: Negative for adenopathy. Does not bruise/bleed easily. Psychiatric/Behavioral: Negative for agitation and confusion. Vitals Wt 136.1 kg (300 lb) BMI 38.52 kg/m?? Physical Exam Diagnoses and all orders for this visit: Obstructive sleep apnea (Primary) Pulmonary hypertension (CMS/HCC) Non-seasonal allergic rhinitis due to pollen Shortness of breath Hypoxemia Morbid obesity (CMS/HCC) Non-smoker Fatigue, unspecified type Results: Lab Results Component Value Date WBC 8.8 08/06/2019 HGB 14.9 08/06/2019 HCT 46.8 08/06/2019 MCV 100.4 (H) 08/06/2019 LABPLAT 141 (L) 08/06/2019 Plan: Patient will return back in 3 months for re-evaluation. I will adjust his BiPAP pressure to 20/9. Patient DME company is [employer]. Patient will continue using bronchodilators on as needed basis. He does have a nebulizer with albuterol and Atrovent. He was advised to let us know if he start having any new symptoms. He will work on weight reduction. He will continue using oxygen at 3 liter/minute atrest and 4 liter/minute with activity and into the CPAP circuit, please see further details for assessment and plan in HPI. This was a telemedicine visit with Mann Angelina Kei which took place via telephone. During the visit, I was located at the pulmonary office and the patient was located at home. The session started at 10:52 AM and ended at 11:15 AM The patient has been informed that the visit may not be secure and acknowledged the information. I have explained the option of participating in a telephone or video visit during the COVID-19 public health emergency to the patient. After being given an opportunity to ask questions about and discuss this type of visit, the patient verbally consented to proceeding with the telephone / video visit. The patient understands that this service replaces an office visit and they may be billed and/or responsible for any applicable copayments. documented in this encounter Plan of Treatment Not on file documented as of this encounter Visit Diagnoses Diagnosis Obstructive sleep apnea- Primary Obstructive sleep apnea (adult) (pediatric) Pulmonary hypertension (HCC) Other chronic pulmonary heart diseases Non-seasonal allergic rhinitis due to pollen Shortness of breath Hypoxemia Morbid obesity (HCC) Morbid obesity Non-smoker Fatigue, unspecified type documented in this encounter Historical Medications * This list may reflect changes made after this encounter. gabapentin (NEURONTIN) 800 mg tablet Take 800 mg by mouth 3 (three) times a day furosemide (LASIX) 40 mg tablet 08/13/2019 glimepiride (AMARYL) 2 mg tablet 08/11/2019 simvastatin (ZOCOR) 40 mg tablet 08/11/2019 metFORMIN XR (GLUCOPHAGE XR) 500 mg 24 hr tablet TK 1 T PO BID B MEALS 08/26/2019 digoxin (LANOXIN) 250 mcg (0.25 mg) tablet 08/13/2019 diltiazem (TIAZAC) 240 mg 24 hr capsule 08/11/2019 carvediloL (COREG) 6.25 mg tablet 08/13/2019 aspirin 325 mg enteric coated tablet 07/09/2019 Incruse Ellipta 62.5 mcg/actuation blister with device INL 1 PUFF PO QD 07/15/2019 ipratropium-albut Kay (DUO-NEB) 0.5-2.5 mg/3 mL nebulizer solution as needed 08/11/2019 09/09/2019 added in this encounter Care Teams Certified Personal Finance Counselor Relationship Specialty Start Date End Date Vangie Valentine MD [address] [place] [id number] PCP - General Internal Medicine 06/11/19 No, Physician 05/18/18 documented as of this encounter
--- OUTSIDE RECORDS SUMMARY | 2024-05-14 16:52 | XMS_ITS | Encounter Summary ---
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 Name Role Phone No, Physician Unavailable Vangie Valentine MD Primary Care Provider [phone] Encounter Details Date Type Department Care Team (Late st Contact Info) Description 08/04/2019 10:06 AM CDT - 08/06/2019 6:52 PM CDT Hospital Encounter [facility] ADMIT Unknown, SalbadornfKhai Garvin, DO [address] [place] [address] Chet Castillo MD [address] [place] [address] Paresh Boothe MD [address] [place] [id number] Discharge Disposition: Discharge to home or self [...] Sign Reading Time Taken Comments Blood Pressure 127/91 08/04/2019 1:41 PM CDT Pulse 85 08/04/2019 1:41 PM CDT Temperature 36.3 ??C (97.4 ??F) 08/04/2019 1:41 PM CD T Respiratory Rate - - Oxygen Saturation 96% 08/04/2019 1:41 PM CDT Inhaled Oxygen Concentration - - Weight 146.5 kg (322 lb 14.4 oz) 08/04/2019 1:41 PM CDT Height 182.9 cm (6') 08/04/2019 1:41 PM CDT Body Mass Index 43.79 08/04/2019 1:41 PM CDT documented in this encounter Medications at Time of Discharge aspirin 325 mg enteric coated tablet 07/09/2019 Incruse Ellipta 62.5 mcg/actuation blister with device INL 1 PUFF PO QD 07/15/2019 documented as of this encounter Discharge Disposition Disposition Code Departure Means Destination Discharge to home or self care documented in this encounter Plan of Treatment Not on file documented as of this encounter Procedures Procedure Name Priority Date/Time Associated Diagnosis Comments CBC WITH AUTO DIFFERENTIAL Routine 08/06/2019 6:32 AM CDT BASIC METABOLIC PANEL Routine 08/06/2019 6:32 AM CDT CBC WITH AUTO DIFFERENTIAL Routine 08/05/2019 9:50 AM CDT BASIC METABOLIC PANEL Routine 08/05/2019 9:50 AM CDT HEMOGLOBIN A1C Routine 08/05/2019 7:22 AM CDT CARDIOPULMONARY DIAGNOSTICS REPORT 08/05/2019 12:[address] HEAD WO CONTRAST 08/05/2019 1 2:00 AM CDT URINALYSIS, COMPLETE W/REFLEX TO CULTURE Routine 08/04/2019 9:33 PM CDT URINALYSIS AND REFLEX TO MICROSCOPIC AND CULTURE Routine 08/04/2019 9:33 PM CDT XR SPINE CERVICAL 2 OR 3 VIEWS 08/04/2019 4:21 PM CDT BLOOD CULTURE Routine 08/04/2019 12:47 PM CDT T4, FREE Routine 08/04/2019 12:47 PM CDT CBC WITH AUTO DIFFERENTIAL Routine 08/04/2019 7:50 AM CDT TROPONIN I Routine 08/04/2019 7:50 AM CDT TSH Routine 08/04/2019 7:50 AM CDT B-TYPE NATRIURETIC PEPTIDE Routine 08/04/2019 7:50 AM CDT DIGOXIN LEVEL Routine 08/04/2019 7:50 AM CDT COMPREHENSIVE METABOLIC PANEL Routine 08/04/2019 7:50 AM CDT LACTATE Routine 08/04/2019 7:49 AM CDT ECG 12-LEAD 08/04/2019 7:44 AM CDT XR CHEST 1 VIEW 08/04/2019 7:36 AM CDT documented in this encounter Results * (ABNORMAL) Basic metabolic panel (08/06/2019 6:32 AM CDT) Sodium 145 135 - 145 mmol/L [facility] Potassium 4.7 3.3 - 5.1 mmol/L [facility] Chloride 97 96 - 108 mmol/L [facility] Carbon Dioxide 39(H) 22 - 32 mmol/L [facility] Anion Gap 9 7 - 16 [facility] Glucose 91 70 - 100 mg/dL [facility] BUN 20 8 - 25 mg/dL [facility] Creatinine 0.7 0.5 - 1.3 mg/dL [facility] Comment: NOTE: Estimated GFR (Cockroft-Gault) will NOT be calculated unless patient Height and Weight were entered. Also, Kidney Disease Stage (GFR) and Estimated GFR (Cockroft-Gault) will NOT be calculated if Creatinine result is <0.2. Kidney Disease Stage >90 mL/MIN [facility] Comment: NOTE; ??The GFR is an estimated value using the creatinine, sex, age, and race of the patient. THE Estimated Kidney Disease GFR is validated for AGES 18-70 YEARS STAGE ?mL/Min ?DESCRIPTION ??1 ?90 mL/min or more ?Normal or elevated GFR ??2 ? 60-89 mL/min ?Mildly decreased GFR ??3 ? 30-59 mL/min ?Moderately decreased GFR ??4 ? 15-29 mL/min ?Severely decreased GFR ??5 ? <15 mL/min ? Kidney failure or on dialysis Est GFR (Cockcroft-G) 167 ml/MIN [facility] Comment: Estimated GFR(Cockroft-Gault)is used to calculate patient medication dosage Calcium 9.7 8.6 - 10.3 mg/dL [facility] 08/06/2019 6:32 AM CDT 08/06/2019 7:09 AM CDT Narrative Resulting Agency Comment IN us Karen Gomes MD LAB BLOOD ORDERABL ES Final Result [facility] [address] [place] [address], [facility] [phone] * (ABNORMAL) CBC with auto differential (08/06/2019 6:32 AM CDT) WBC 8.8 3.8 - 9.9 X10 3/ul [facility] RBC 4.66 4.30 - 5.80 x10 6/ul [facility] Hemoglobin 14.9 13.0 - 17.5 g/dL [facility] Hct 46.8 38.9 - 50.3 % [facility] MCV 100.4(H) 81.3 - 96.4 fl [facility] MCH 32.0 27.1 - 33.3 pg [facility] MCHC 31.8(L) 32.3 - 35.7 g/dl [facility] RDW 13.0 11.1 - 14.9 % [facility] Plt Count 141(L) 150 - 400 x10 3/ul [facility] MPV 11.4 9.1 - 12.3 fl [facility] Neut % 60.1 % [facility] Immature Gran % 0.5 % [facility] Lymph % 24.9 % [facility] Cass % 11.7 % [facility] Eos % 2.6 % [facility] AUTO BASO % 0.2 % [facility] NEUTROPHIL ABS # 5.3 1.7 - 6.5 x10 3/ul [facility] Immature Gran # 0.0 0.0 - 0.1 x10 3/ul [facility] Absolute Lymphs (auto) 2.2 0.8 - 3.3 x10 3/ul [facility] Absolute Monos (auto) 1.0(H) 0.2 - 0.8 x10 3/ul [facility] Absolute Eos (auto) 0.2 0.0 - 0.5 x10 3/ul [facility] BASOPHIL ABS # 0.0 0.0 - 0.1 x10 3/ul [facility] Nucleat RBC Rel Count 0.0 #/100WBC [facility] NRBC abs 0.00 0.00 - 0.01 x10 3/ul [facility] Absolute Neutrophils 5,300 200 - 8,000 /ul [facility] 08/06/2019 6:32 AM CDT 08/06/2019 7:09 AM CDT Narrative Resulting Agency Comment IN Karen Gomes MD LAB BLOOD ORDERABL ES Final Result [facility] [address] [place] [address], [facility] [phone] * (ABNORMAL) Basic metabolic panel (08/05/2019 9:50 AM CDT) Sodium 141 135 - 145 mmol/L [facility] Potassium 4.3 3.3 - 5.1 mmol/L [facility] Chloride 103 96 - 108 mmol/L [facility] Carbon Dioxide 29 22 - 32 mmol/L [facility] Anion Gap 9 7 - 16 [facility] Glucose 171(H) 70 - 100 mg/dL [facility] BUN 21 8 - 25 mg/dL [facility] Creatinine 0.6 0.5 - 1.3 mg/dL [facility] Comment: NOTE: Estimated GFR (Cockroft-Gault) will NOT be calculated unless patient Height and Weight were entered. Also, Kidney Disease Stage (GFR) and Estimated GFR (Cockroft-Gault) will NOT be calculated if Creatinine result is <0.2. Kidney Disease Stage >90 mL/MIN [facility] Comment: NOTE; ??The GFR is an estimated value using the creatinine, sex, age, and race of the patient. THE Estimated Kidney Disease GFR is validated for AGES 18-70 YEARS STAGE ?mL/Min ?DESCRIPTION ??1 ?90 mL/min or more ?Normal or elevated GFR ??2 ? 60-89 mL/min ?Mildly decreased GFR ??3 ? 30-59 mL/min ?Moderately decreased GFR ??4 ? 15-29 mL/min ?Severely decreased GFR ??5 ? <15 mL/min ? Kidney failure or on dialysis Est GFR (Cockcroft-G) 198 ml/MIN [facility] Comment: Estimated GFR(Cockroft-Gault)is used to calculate patient medication dosage Calcium 8.8 8.6 - 10.3 mg/dL [facility] 08/05/2019 9:50 AM CDT 08/05/2019 9:59 AM CDT Narrative Resulting Agency Comment IN Karen Gomes MD LAB BLOOD ORDERABL ES Final Result Performing Organization Address City/State/[facility] Co de Phone Number [facility] [address] [phone] * (ABNORMAL) CBC with auto differential (08/05/2019 9:50 AM CDT) WBC 8.1 3.8 - 9.9 X10 3/ul [facility] RBC 4.38 4.30 - 5.80 x10 6/ul [facility] Hemoglobin 13.9 13.0 - 17.5 g/dL [facility] Hct 43.7 38.9 - 50.3 % [facility] MCV 99.8(H) 81.3 - 96.4 fl [facility] MCH 31.7 27.1 - 33.3 pg [facility] MCHC 31.8(L) 32.3 - 35.7 g/dl [facility] RDW 13.0 11.1 - 14.9 % [facility] Plt Count 140(L) 150 - 400 x10 3/ul [facility] MPV 11.2 9.1 - 12.3 fl [facility] Neut % 56.4 % [facility] Immature Gran % 0.5 % [facility] Lymph % 29.4 % [facility] Cass % 10.6 % [facility] Eos % 2.9 % [facility] AUTO BASO % 0.2 % [facility] NEUTROPHIL ABS # 4.6 1.7 - 6.5 x10 3/ul [facility] Immature Gran # 0.0 0.0 - 0.1 x10 3/ul [facility] Absolute Lymphs (auto) 2.4 0.8 - 3.3 x10 3/ul [facility] Absolute Monos (auto) 0.9(H) 0.2 - 0.8 x10 3/ul [facility] Absolute Eos (auto) 0.2 0.0 - 0.5 x10 3/ul [facility] BASOPHIL ABS # 0.0 0.0 - 0.1 x10 3/ul [facility] Nucleat RBC Rel Count 0.0 #/100WBC [facility] NRBC abs 0.00 0.00 - 0.01 x10 3/ul [facility] Absolute Neutrophils 4,600 200 - 8,000 /ul [facility] 08/05/2019 9:50 AM CDT 08/05/2019 9:59 AM CDT Narrative Resulting Agency Comment IN Karen Gomes MD LAB BLOOD ORDERABL ES Final Result [facility] [address] [place] [address], [facility] [phone] * Hemoglobin A1c (08/05/2019 7:22 AM CDT) Hemoglobin A1c % 5.4 4.0 - 5.6 % [facility] Comment: ADA 2016 GUIDELINES: ??Initial Diagnostic Criteria ? HbA1c Result: ?Interpretation: ?<5.7% ? Normal ?5.7-6.4% ?At risk for diabetes mellitus ?>=6.5% ?Consistent with diabetes mellitus ??Diabetes monitoring ? Target value (ADA Recommended) ?? <7% 08/05/2019 7:22 AM CDT 08/05/2019 7:30 AM CDT Narrative Resulting Agency Comment IN us Fabi Villalobos DAMAGE INSIDE ADJUSTER LAB BLOOD ORDERABLES Final Resul t [facility] [employer] [place] [id number], [facility] [phone] * CARDIOPULMONARY DIAGNOSTICS REPORT (08/05/2019 12:00 AM CDT) Narrative 08/05/2019 12:00 AM CDT Ordered by an unspecified provider. Historical Provider MD NURSING COMMUNICATION Fin al Result * CT Head WO Contrast (08/05/2019 12:00 AM CDT) Anatomical Region Laterality Modality Head and Neck N/A Computed Tomogra phy 08/05/2019 2:47 PM CDT Narrative 08/05/2019 2:54 PM CDT Patient Name: RAMON CHOUDHURY ?Ordering Dr: Karen Gomes MD ?? D.O.B: 1960 ? Exam Date: 08/05/19 ?? 0000 ?? Age: 58 ?Sex: Male ? MR#: [id number] ?? Loc: ??N281-01 ? RADIOLOGY REPORT ?? Order #[id number] ?? CT Scan ? CT Head WO IV Contrast ? Signed ?? EXAM DESCRIPTION: ??CT Head WO IV Contrast ? REASON FOR STUDY: ??Headache with severe neck pain for 1 day. ? TECHNIQUE: ??Axial images acquired through the brain without intravenous ?? contrast. ??Images stored on PACS. ?? Automated exposure control was used as a ?? dose optimization technique for this examination. ? COMPARISON: ??CT head, MRI brain 09/11/2017 ? FINDINGS: ? BRAIN: No acute intracranial hemorrhage, mass effect, or midline shift is ?? seen. ??The ventricles and sulci are normal in size for patient age. ??There are ?? patchy bilateral periventricular white matter hypodensities, which are ?? nonspecific most likely related to chronic small vessel ischemia. ??There is no ?? evidence of acute territorial ischemia/infarction. ? EXTRA-AXIAL SPACES: No fluid collections. No masses. ? CALVARIUM: No acute fracture. ??No suspicious bone lesion. ? SINUSES/MASTOIDS: Fluid/mucosal thickening involving the left maxillary ?? (moderate) and right sphenoid (mild) sinuses. ??Polyp/mucous retention cyst ?? within the right maxillary sinus. ? ORBITS: No significant abnormality. ? OTHER: Intracranial atherosclerotic calcifications. ? IMPRESSION: ? 1. ??No CT evidence of an acute intracranial abnormality. ? 2. ??Chronic small vessel disease involving the periventricular white matter. ? 3. ??Fluid/mucosal thickening favoring the left maxillary sinus. ??Recommend ?? clinical correlation for signs/symptoms of acute sinus disease. ? THIS IS AN ELECTRONICALLY VERIFIED FINAL REPORT ?? 08/05/2019 2:54 PM - Electronically signed by Nando Upton M.D. ?? Nando Upton M.D. ? MD ?? D: ??08/05/2019 2:54 PM ?? T: ? Report ID: [id number] ?? Reading Location: ??[id number] ? REPORT ELECTRONICALLY SIGNED IN OTHER VENDOR SYSTEM ?? Resulting Agency Comment I Procedure Note Nando Upton MD - 08/05/2019 Patient Name: RAMON CHOUDHURY Ginny Dr: Karen Gomes MD D.O.B: 1960 Exam Date: 08/05/19 0000 Age: 58 Sex: Male MR#: [id number] Loc: N281-01 RADIOLOGY REPORT Order #[id number] CT Scan CT Head WO IV Contrast Signed EXAM DESCRIPTION: CT Head WO IV Contrast REASON FOR STUDY: Headache with severe neck pain for 1 day. TECHNIQUE: Axial images acquired through the brain without intravenous contrast. Images stored on PACS. Automated exposure control was usedas a dose optimization technique for this examination. COMPARISON: CT head, MRI brain 09/11/2017 FINDINGS: BRAIN: No acute intracranial hemorrhage, mass effect, or midline shift is seen. The ventricles and sulci are normal in size for patient age.There are patchy bilateral periventricular white matter hypodensities, which are nonspecific most likely related to chronic small vessel ischemia. Thereis no evidence of acute territorial ischemia/infarction. EXTRA-AXIAL SPACES: No fluid collections. No masses. CALVARIUM: No acute fracture. No suspicious bone lesion. SINUSES/MASTOIDS: Fluid/mucosal thickening involving the left maxillary (moderate) and right sphenoid (mild) sinuses. Polyp/mucous retentioncyst within the right maxillary sinus. ORBITS: No significant abnormality. OTHER: Intracranial atherosclerotic calcifications. IMPRESSION: 1. No CT evidence of an acute intracranial abnormality. 2. Chronic small vessel disease involving the periventricular whitematter. 3. Fluid/mucosal thickening favoring the left maxillary sinus.Recommend clinical correlation for signs/symptoms of acute sinus disease. THIS IS AN ELECTRONICALLY VERIFIED FINAL REPORT 08/05/2019 2:54 PM - Electronically signed by Nando Upton M.D., MD T: Report ID: [id number] Reading Location: [place] [address] REPORT ELECTRONICALLY SIGNED IN OTHER VENDOR SYSTEM Karen Gomes MD IMG CT PROCEDURES Final Result * URINALYSIS, COMPLETE W/REFLEX TO CULTURE (08/04/2019 9:33 PM CDT) Ur Collection Type CLEAN CATCH [facility] Ur Culture Indicated? C S NOT INDICATED [facility] Urine Color YELLOW YELLOW [facility] Urine Clarity Slightly-Terri udy CLEAR [facility] Urine Glucose (UA) NORMAL NORMAL mg/dL [facility] Urine Bilirubin NEGATIVE NEGATIVE mg/dl [facility] Urine Ketones NEGATIVE NEGATIVE mg/dL [facility] Ur Specific [place] 1.021 1.005 - 1.025 [facility] Urine Blood NEGATIVE NEGATIVE mg/dl [facility] Urine pH 5.0 5.0 - 8.0 [facility] Urine Protein NEGATIVE NEGATIVE mg/dL [facility] Urine Urobilinogen NORMAL NORMAL mg/dL [facility] Urine Nitrite NEGATIVE NEGATIVE [facility] Ur Leukocyte Esterase NEGATIVE NEGATIVE [place]/ul [facility] Ur Microscopic Review Indicated or Ordered [facility] Urine RBC 6 0 - 2 /HPF [facility] Urine WBC 4 0 - 2 /HPF [facility] Urine Mucus RARE /LPF [facility] Ur Squamous Epith Cells Rare /HPF [facility] Hyaline Casts 4 0 - 2 /LPF [facility] 08/04/2019 9:33 PM CDT 08/04/2019 9:43 PM CDT Narrative [facility] - 08/04/2019 10:01 PM CDT Indication(s) for ordering ?? Delirium/malaise/lethargy RN Clean catch Resulting Agency Comment IN us Khai Rodriguez DO LAB URINE ORDERABLES Final Res ult [facility] [address] [place] [address], [facility] [phone] * Urinalysis reflex to microscopic and culture (08/04/2019 9:33 PM CDT) Ur Collection Type CLEAN CATCH [facility] Ur Culture Indicated? C S NOT INDICATED [facility] Urine Color YELLOW YELLOW [facility] Urine Clarity Slightly-Terri udy CLEAR [facility] Urine Glucose (UA) NORMAL NORMAL mg/dL [facility] Urine Bilirubin NEGATIVE NEGATIVE mg/dl [facility] Urine Ketones NEGATIVE NEGATIVE mg/dL [facility] Ur Specific [place] 1.021 1.005 - 1.025 [facility] Urine Blood NEGATIVE NEGATIVE mg/dl [facility] Urine pH 5.0 5.0 - 8.0 [facility] Urine Protein NEGATIVE NEGATIVE mg/dL [facility] Urine Urobilinogen NORMAL NORMAL mg/dL [facility] Urine Nitrite NEGATIVE NEGATIVE [facility] Ur Leukocyte Esterase NEGATIVE NEGATIVE Maribell/ul [facility] Ur Microscopic Review Indicated or Ordered [facility] Urine RBC 6 0 - 2 /HPF [facility] Urine WBC 4 0 - 2 /HPF [facility] Urine Mucus RARE /LPF [facility] Ur Squamous Epith Cells Rare /HPF [facility] Hyaline Casts 4 0 - 2 /LPF [facility] 08/04/2019 9:33 PM CDT 08/04/2019 9:43 PM CDT Narrative [facility] - 08/04/2019 10:01 PM CDT Indication(s) for ordering ?? Delirium/malaise/lethargy RN Clean catch Resulting Agency Comment IN Khai Rodriguez DO LAB MICROBIOLOGY - GENERAL ORD ERABLES Final Result [facility] [address] [place] [address], [facility] [phone] * XR Spine Cervical 2 or 3 Views (08/04/2019 4:21 PM CDT) Anatomical Region Laterality Modality Spine N/A Radiographic Wendy ging 08/04/2019 7:45 PM CDT Narrative 08/04/2019 7:48 PM CDT Patient Name: RAMON CHOUDHURY ?Ordering Dr: Paresh Boothe MD ?? D.O.B: 1960 ? Exam Date: 08/04/19 ?? 1621 ?? Age: 58 ?Sex: Male ? MR#: [id number] ?? Loc: ??N281-01 ? RADIOLOGY REPORT ?? Order #[id number] ?? Radiology ? Cervical Spine 2 or 3 Views ? Signed ?? EXAM DESCRIPTION: ??Cervical Spine 2 or 3 Views ? REASON FOR STUDY: ??Left posterior neck pain for 5 days. ??No known injury. ? TECHNIQUE: ??Three radiographic views acquired of the cervical spine. ? COMPARISON: ??None available. ? FINDINGS: ?ALIGNMENT: There is no spondylolisthesis. Alignment is normal. ? VERTEBRAE: The C7 vertebral body is obscured on the lateral view by overlying ?? soft tissues and is not well visualized on this examination. ??Within this ?? limitation, there is no evidence of an acute fracture. ??The vertebral body ?? heights are preserved. There are no aggressive appearing osseous lesions. ?? There is mild intervertebral disc height loss and vertebral endplate ?? osteophytosis at C5-C6. ??The dens is intact. ??There is symmetry between the ?? dens and lateral masses of C1. ? SOFT TISSUES: The prevertebral soft tissues are normal in appearance. The ?? visualized lung apices are clear. ? IMPRESSION: ? 1. ??No evidence of an acute fracture or spondylolisthesis in the cervical ?? spine. ??The C7 vertebral body is obscured by overlying soft tissues on the ?? lateral view and is not well evaluated on this examination. ??Consider CT for ?? further evaluation, if clinically indicated. ? 2. ??Mild degenerative disc disease at C5-C6. ? THIS IS AN ELECTRONICALLY VERIFIED FINAL REPORT ?? 08/04/2019 7:48 PM - Electronically signed by Jean-Pierre Owens M.D. ?? Jean-Pierre Owens M.D. ? AB ?? D: ??08/04/2019 7:48 PM ?? T: ? Report ID: [id number] ?? Reading Location: ??[id number] ? REPORT ELECTRONICALLY SIGNED IN OTHER VENDOR SYSTEM ?? Resulting Agency Comment I Procedure Note Jean-Pierre Owens MD - 08/04/2019 Patient Name: BONNIERAMON Kemp Dr: Paresh Boothe MD D.O.B: 1960 Exam Date: 08/04/19 1621 Age: 58 Sex: Male MR#: [id number] Loc: N281-01 RADIOLOGY REPORT Order #[id number] Radiology Cervical Spine 2 or 3 Views Signed EXAM DESCRIPTION: Cervical Spine 2 or 3 Views REASON FOR STUDY: Left posterior neck pain for 5 days. No known injury. TECHNIQUE: Three radiographic views acquired of the cervical spine. COMPARISON: None available. FINDINGS: ALIGNMENT: There is no spondylolisthesis. Alignment is normal. VERTEBRAE: The C7 vertebral body is obscured on the lateral view byoverlying soft tissues and is not well visualized on this examination. Within this limitation, there is no evidence of an acute fracture. The vertebralbody heights are preserved. There are no aggressive appearing osseous lesions. There is mild intervertebral disc height loss and vertebral endplate osteophytosis at C5-C6. The dens is intact. There is symmetry betweenthe dens and lateral masses of C1. SOFT TISSUES: The prevertebral soft tissues are normal in appearance. The visualized lung apices are clear. IMPRESSION: 1. No evidence of an acute fracture or spondylolisthesis in the cervical spine. The C7 vertebral body is obscured by overlying soft tissues onthe lateral view and is not well evaluated on this examination. Consider CTfor further evaluation, if clinically indicated. 2. Mild degenerative disc disease at C5-C6. THIS IS AN ELECTRONICALLY VERIFIED FINAL REPORT 08/04/2019 7:48 PM - Electronically signed by Jean-Pierre Owens M.D. AB T: Report ID: [id number] Reading Location: [id number] REPORT ELECTRONICALLY SIGNED IN OTHER VENDOR SYSTEM Paresh Boothe MD IMG XR PROCEDURES Final Result * Blood culture Blood (08/04/2019 12:47 PM CDT) [facility] CULTURE BLOOD ADULT (SET OF 2) NO GROWTH DAY 5 [facility] Blood 08/04/2019 12:4 7 PM CDT 08/04/2019 1:16 PM CDT Khai Rodriguez DO LAB MICROBIOLOGY - GENERAL ORD ERABLES Final Result Performing Organization Address City/[facility]/ZIP Co de Phone Number [address] [phone] * T4, free (08/04/2019 12:47 PM CDT) [facility] Free T4 1.20 0.93 - 1.70 ng/dL [facility] 08/04/2019 12:4 7 PM CDT 08/04/2019 1:16 PM CDT Narrative [facility] - 08/04/2019 1:51 PM CDT Comment add test please Resulting Agency Comment IN Fabi Villalobos DAMAGE INSIDE ADJUSTER LAB BLOOD ORDERABLES Final Resul t [address] [phone] * B-type natriuretic peptide (08/04/2019 7:50 AM CDT) [facility] B-Natriuretic Peptide 86 0 - 100 pg/mL [facility] Comment: B Natriutetic Peptide METHOD: ??[employer] Centaur XP using [place]. Decision threshold of 100 pg/mL has been demonstrated to provide the maximal combination of sensitivity, specificity, and predictive value for the diagnosis of congestive heart failure (CHF). ??Virtually all patients with no evidence of CHF have BNP values <100 pg/mL. NOTE: ??Nesiritide (Natrecor) interferes with the BNP assay. BNP result will be invalid if drawn within 2 hours of bolus or infusion of nesiritide. 08/04/2019 7:50 AM CDT 08/04/2019 7:52 AM CDT Narrative Resulting Agency Comment ER Khai Michael DO LAB BLOOD ORDERABLES Final Res ult Performing Organization Address [facility] Co de Phone Number [address] [address] [phone] * Troponin I (08/04/2019 7:50 AM CDT) Pathologist [facility] Troponin I <0.300 0.000 - 0.300 ng/mL [facility] Comment: Reference using AMBIKA Chemiluminescence ? Negative: Repeat in 4-6 hours as indicated. 08/04/2019 7:50 AM CDT 08/04/2019 7:52 AM CDT Narrative Resulting Agency Comment ER Khai Rodriguez DO LAB BLOOD ORDERABLES Final Res ult Performing Organization Address [facility] Co de Phone Number [address] [phone] * (ABNORMAL) Comprehensive metabolic panel (08/04/2019 7:50 AM CDT) Pathologist [facility] Sodium 138 135 - 145 mmol/L [facility] Potassium 4.9 3.3 - 5.1 mmol/L [facility] Chloride 101 96 - 108 mmol/L [facility] Carbon Dioxide 26 22 - 32 mmol/L [facility] Anion Gap 11 7 - 16 [facility] Glucose 164(H) 70 - 100 mg/dL [facility] BUN 23 8 - 25 mg/dL [facility] Creatinine 1.2 0.5 - 1.3 mg/dL [facility] Comment: NOTE: Estimated GFR (Cockroft-Gault) will NOT be calculated unless patient Height and Weight were entered. Also, Kidney Disease Stage (GFR) and Estimated GFR (Cockroft-Gault) will NOT be calculated if Creatinine result is <0.2. Kidney Disease Stage 66 mL/MIN [facility] Comment: NOTE; ??The GFR is an estimated value using the creatinine, sex, age, and race of the patient. THE Estimated Kidney Disease GFR is validated for AGES 18-70 YEARS STAGE ?mL/Min ?DESCRIPTION ??1 ?90 mL/min or more ?Normal or elevated GFR ??2 ? 60-89 mL/min ?Mildly decreased GFR ??3 ? 30-59 mL/min ?Moderately decreased GFR ??4 ? 15-29 mL/min ?Severely decreased GFR ??5 ? <15 mL/min ? Kidney failure or on dialysis Calcium 8.7 8.6 - 10.3 mg/dL [facility] Total Protein 6.4 6.4 - 8.3 g/dL [facility] Albumin 4.0 3.5 - 5.0 g/dL [facility] Globulin 2.4 2.3 - 3.5 gm/dL [facility] Albumin/Globulin Ratio 1.7 1.1 - 1.8 [facility] Total Bilirubin 0.4 0.0 - 1.2 mg/dL [facility] AST 27 0 - 40 U/L [facility] ALT 21 0 - 41 U/L [facility] Alkaline Phosphatase 70 40 - 129 U/L [facility] 08/04/2019 7:50 AM CDT 08/04/2019 7:52 AM CDT Narrative Resulting Agency Comment ER Khai Rodriguez DO LAB BLOOD ORDERABLES Final Res ult [address] [phone] * (ABNORMAL) TSH (08/04/2019 7:50 AM CDT) TSH 6.260(H) 0.27 - 4.20 uIU/mL [facility] 08/04/2019 7:50 AM CDT 08/04/2019 7:52 AM CDT Narrative Resulting Agency Comment ER Khai Rodriguez DO LAB BLOOD ORDERABLES Final Res ult [address] [phone] * Digoxin level (08/04/2019 7:50 AM CDT) Digoxin 1.1 0.6 - 1.2 ng/mL [facility] 08/04/2019 7:50 AM CDT 08/04/2019 7:52 AM CDT Narrative Resulting Agency Comment ER Khai Rodriguez DO LAB BLOOD ORDERABLES Final Res ult [address] [phone] * (ABNORMAL) CBC with auto differential (08/04/2019 7:50 AM CDT) WBC 8.6 3.8 - 9.9 X10 3/ul [facility] RBC 4.62 4.30 - 5.80 x10 6/ul [facility] Hemoglobin 14.5 13.0 - 17.5 g/dL [facility] Hct 45.5 38.9 - 50.3 % [facility] MCV 98.5(H) 81.3 - 96.4 fl [facility] MCH 31.4 27.1 - 33.3 pg [facility] MCHC 31.9(L) 32.3 - 35.7 g/dl [facility] RDW 13.2 11.1 - 14.9 % [facility] Plt Count 144(L) 150 - 400 x10 3/ul [facility] MPV 11.9 9.1 - 12.3 fl [facility] Neut % 67.9 % [facility] Immature Gran % 0.7 % [facility] Lymph % 21.8 % [facility] Cass % 8.5 % [facility] Eos % 0.9 % [facility] AUTO BASO % 0.2 % [facility] NEUTROPHIL ABS # 5.8 1.7 - 6.5 x10 3/ul [facility] Immature Gran # 0.1 0.0 - 0.1 x10 3/ul [facility] Absolute Lymphs (auto) 1.9 0.8 - 3.3 x10 3/ul [facility] Absolute Monos (auto) 0.7 0.2 - 0.8 x10 3/ul [facility] Absolute Eos (auto) 0.1 0.0 - 0.5 x10 3/ul [facility] BASOPHIL ABS # 0.0 0.0 - 0.1 x10 3/ul [facility] Nucleat RBC Rel Count 0.0 #/100WBC [facility] NRBC abs 0.00 0.00 - 0.01 x10 3/ul [facility] Absolute Neutrophils 5,800 200 - 8,000 /ul [facility] 08/04/2019 7:50 AM CDT 08/04/2019 7:52 AM CDT Narrative Resulting Agency Comment ER Khai Rodriguez DO LAB BLOOD ORDERABLES Final Res ult Performing Organization Address [facility] Co de Phone Number [address] [phone] * (ABNORMAL) Lactate (08/04/2019 7:49 AM CDT) LACTATE 2.1(HH) mmol/L [facility] Comment: CRITICAL VALUE CALLED and REPEATED. at:0832 08/04/19 by:Jordan Crain to: EMILY ([id number]) RAYMOND Lactate Reference Range: 0.5 - 2.2 mmol/L 08/04/2019 7:49 AM CDT 08/04/2019 7:52 AM CDT Narrative Resulting Agency Comment ER Khai Rodriguez DO LAB BLOOD ORDERABLES Final Res ult Performing Organization Address [facility] [place] [address], [facility] [phone] * ECG 12 lead (08/04/2019 7:44 AM CDT) Ventricular Rate EKG/Min 46 BPM ER RADIOLOGY Atrial Rate 51 BPM ER RADIOLOGY QRS-Interval (MSEC) 92 ms ER RADIOLOGY QT-Interval (MSEC) 410 ms ER RADIOLOGY QTc 358 ms ER RADIOLOGY R [place] -12 degrees ER RADIOLOGY T [place] -11 degrees ER RADIOLOGY Diagnosis Atrial fibrillation Nonspecific T wave abnormality Left axis deviation Abnormal ECG When compared with ECG of 13-MAY-2018 17:49, Vent. rate has decreased BY ??71 BPM Nonspecific T wave abnormality now evident in Inferior leads ER RADIOLOGY 08/04/2019 7:44 AM CDT 08/04/2019 11:16 AM CDT Narrative Resulting Agency Comment PREADT Khai Rodriguez DO ECG ORDERABLES Final Result ER RADIOLOGY * XR Chest 1 View (08/04/2019 7:36 AM CDT) Anatomical Region Laterality Modality Body, Chest N/A Radiographic Wendy ging 08/04/2019 8:04 AM CDT Narrative 08/04/2019 8:05 AM CDT Patient Name: RAMON CHOUDHURY ?Ordering Dr: Khai Rodriguez DO ?? D.O.B: 1960 ? Exam Date: 08/04/19 ?? 07 ?? Age: 58 ?Sex: Male ? MR#: [id number] ?? Loc: ? RADIOLOGY REPORT ?? Order #[id number] ?? Radiology ? Chest 1 View Portable ? Signed ?? EXAM DESCRIPTION: ??Chest 1 View Portable ? REASON FOR STUDY: ??weakness, sob this morning ? TECHNIQUE: ??Frontal radiographic view of the chest acquired. ? COMPARISON: ??05/30/2018 ? FINDINGS: ? The evaluation is limited by portable technique and the patient's body ?? habitus. ? The heart is enlarged. Vascularity is mildly indistinct. No consolidations or ?? large effusions are noted. There are scattered atelectasis. ? The bones are osteopenic. ? IMPRESSION: ? 1. ??Cardiomegaly. ? 2. ??Scattered atelectasis and probable pulmonary edema. ? THIS IS AN ELECTRONICALLY VERIFIED FINAL REPORT ?? 08/04/2019 8:05 AM - Electronically signed by Khai Cary M.D. ?? Khai Cary M.D. ? SS ?? D: ??08/04/2019 8:05 AM ?? T: ? Report ID: [id number] ?? Reading Location: ??[id number] ? REPORT ELECTRONICALLY SIGNED IN OTHER VENDOR SYSTEM ?? Resulting Agency Comment E Procedure Note Khai Cary MD - 08/04/2019 Patient Name: RAMON CHOUDHURY Dr: Khai Rodriguez DO D.O.B: 1960 Exam Date: 08/04/1938 Age: 58 Sex: Male MR#: [id number] Loc: RADIOLOGY REPORT Order #[id number] Radiology Chest 1 View Portable Signed EXAM DESCRIPTION: Chest 1 View Portable REASON FOR STUDY: weakness, sob this morning TECHNIQUE: Frontal radiographic view of the chest acquired. COMPARISON: 05/30/2018 FINDINGS: The evaluation is limited by portable technique and the patient's body habitus. The heart is enlarged. Vascularity is mildly indistinct. Noconsolidations or large effusions are noted. There are scattered atelectasis. The bones are osteopenic. IMPRESSION: 1. Cardiomegaly. 2. Scattered atelectasis and probable pulmonary edema. THIS IS AN ELECTRONICALLY VERIFIED FINAL REPORT 08/04/2019 8:05 AM - Electronically signed by Khai Cary M.D. SS T: Report ID: [id number] Reading Location: [place] [address] REPORT ELECTRONICALLY SIGNED IN OTHER VENDOR SYSTEM Khai Rodriguez DO IMG XR PROCEDURES Final Result documented in this encounter Visit Diagnoses Not on filedocumented in this encounter Care Teams Coach Professional Athletes Relationship Specialty Start Date End Date Vangie Valentine MD [address] [place] [address] PCP - General Internal Medicine 06/11/19 No, Physician 05/18/18 documented as of this encounter
--- OUTSIDE RECORDS SUMMARY | 2024-05-14 16:52 | XMS_ITS | Encounter Summary ---
Author Organization [facility] Address [address] [place] [address] Care Team Providers Care County Engineer Name Role Phone No, Physician Unavailable aVngie Valentine MD Primary Care Provider [phone] Reason for Visit * Reason Comments Allergic Reaction Rash Encounter Details Date Type Department Care Team (Late st Contact Info) Description 11/25/2021 9:49 AM CDT - 11/25/2021 9:50 AM CDT Emergency [address] [id number] Rash (Primary Dx); Elevated blood pressure reading Discharge Disposition: Discharge to home or self [...] Sign Reading Time Taken Comments Blood Pressure 144/96 11/25/2021 7:39 AM CDT Pulse 88 11/25/2021 7:39 AM CDT Temperature 37 ??C (98.6 ??F) 11/25/2021 7:39 AM CDT Respiratory Rate 18 11/25/2021 7:39 AM CDT Oxygen Saturation 94% 11/25/2021 7:39 AM CDT Inhaled Oxygen Concentration - - Weight 134 kg (295 lb 6.7 oz) 11/25/2021 7:39 AM CDT Height 182.9 cm (6') 11/25/2021 7:39 AM CDT Body Mass Index 40.07 11/25/2021 7:39 AM CDT documented in this encounter Discharge Instructions * Discharge Instructions* Marion Vega PA - 11/25/2021 9:29 AM CDT You can continue to take benadryl for rash/itching. You can also take Pepcid once or twice daily until symptoms resolve and start medrol dose pack (steroid) tomorrow. Please follow-up with your primary care provider early next week for persistent issues. Please return to the ED if you develop significantly worsening rash, fever or difficulty breathing. * Attachments The following attachments cannot be sent through Care Everywhere. * Acute Rash (AfterCare(R) Instructions(ER/ED)) (Palestinian) documented in this encounter Medications at Time [...] 08/26/2019 simvastatin (ZOCOR) 40 mg tablet 08/11/2019 methylPREDNISolo ne (MEDROL DOSEPACK) 4 mg Dosepack Take as directed on package 1 packet 11/25/2021 12/01/2021 naproxen (NAPROSYN) 500 mg tablet Take 1 tablet (500 mg total) by mouth 2 (two) times a day with meals 30 tablet 01/04/2021 06/11/2022 documented as of this encounter Ordered Prescriptions Prescription Sig Dispense Quantity Refills Last Filled Start Date End Date famotidine (PEPCID) 20 mg tablet Take 1 tablet (20 mg total) by mouth 2 (two) times a day 10 tablet 11/25/2021 methylPREDNISolone (MEDROL DOSEPACK) 4 mg Dosepack Take as directed on package 1 packet 11/25/2021 2 documented in this encounter Discharge Disposition Disposition Code Departure Means Destination Discharge to home or self care documented in this encounter ED Notes * Marion Vega PA - 11/25/2021 9:09 AM CDT HPI Chief Complaint Patient presents with ??? Allergic Reaction ??? Rash HPI 9:26 AM Mann Choudhury is a 61 y.o. male presenting to the ED c/o rash/hives to the anterior chest which he woke up with this morning. Patient reports that he has had approximately 4 episodes over the course the past 5 years. States he has follow-up with PCP but they are uncertain what is causing his rash. Reports that his father had history of hives. Patient was seen in the ED last year for similarepisode and received prednisone and Pepcid at that time. States that he took Benadryl around 6:00 a.m. this morning which did significantly help his rash and itching. Denies new medications, lotions,detergents, soaps. No wheezes. No throat swelling. Patient History: Past Medical History: Diagnosis Date ??? Diabetes (HCC) ??? Neuropathy (CMS/HCC) No past surgical history on file. Family History Problem Relation Age of Onset ??? Emphysema Mother ??? COPD Mother ??? Heart failure Father Social History Tobacco Use ??? Smoking status: Passive Smoke Exposure - Never Smoker ??? Smokeless tobacco: Never Used Substance and Sexual Activity ??? Drug use: Not on file ??? Sexual activity: Not on file Alcohol Use: Not on file Current Facility-Administered Medications: ??? famotidine (PEPCID) tablet 20 mg, 20 mg, oral, Once ??? predniSONE (DELTASONE) tablet 60 mg, 60 [...] Systems Review of Systems Constitutional: Negative for fever. Respiratory: Negative for cough, shortness of breath, wheezing and stridor. Gastrointestinal: Negative for vomiting. Skin: Positive for rash. All systems reviewed and are neg or non contributory for this patients presentation today other than as stated in the HPI . Physical Exam ED Triage Vitals [11/25/21 0739] Temp Pulse Resp BP SpO2 37 ??C (98.6 ??F) 88 18 144/96 94 % Temp src Heart Rate Source Patient Position BP Location FiO2 (%) Oral Pulse Oximetry Sitting Right arm -- Height Height Method Weight Weight Method 1.829 m (6') Stated 134 kg (295 lb 6.7 oz) Standing scale Physical Exam Vitals and nursing note reviewed. Constitutional: General: He is not in acute distress. Appearance: Normal appearance. He is obese. He is not ill-appearing, toxic- appearing or diaphoretic. HENT: Head: Normocephalic and atraumatic. Comments: No facial swelling or rash Mouth/Throat: Mouth: Mucous membranes are moist. Pharynx: Oropharynx is clear. Uvula midline. No pharyngeal swelling, oropharyngeal exudate, posterior oropharyngeal erythema or uvula swelling. Tonsils: No tonsillar exudate. Eyes: General: No scleral icterus. Conjunctiva/sclera: Conjunctivae normal. Cardiovascular: Rate and Rhythm: Normal rate and regular rhythm. Pulmonary: Effort: Pulmonary effort is normal. No respiratory distress. Breath sounds: Normal breath sounds. No wheezing or rales. Musculoskeletal: Cervical back: Neck supple. Skin: General: Skin is warm and dry. Comments: No obvious rash noted to the bilateral upper extremities, chest, abdomen, back, or face. Neurological: Mental Status: He is alert and oriented to person, place, and time. Psychiatric: Mood and Affect: Mood normal. Behavior: Behavior normal. Procedures [facility] Labs Reviewed - No data to display No orders to display BP 144/96 (BP Location: Right arm, Patient Position: Sitting) Pulse 88 Temp 37 ??C (98.6 ??F) (Oral) Resp 18 Ht 182.9 cm (6') Wt 134 kg (295 lb 6.7 oz) SpO2 94% BMI 40.07 kg/m?? MDM Pt comfortable treating with antihistamines and steroid which have helped in the past and follow-upwith his PCP early next week. This examination was transcribed using the [employer] computerized voice recognition system without human rotary driller. In an effort to expedite patient care, this report has not been adjusted for typographical, grammatical, and syntax by a trained medical staff credentialing coordinator. Close outpatient follow-up with a low threshold to return has been mandated , concerning symptoms have been emphasized in detail, and this patient expresses understanding Clinical Impression: Rash Elevated blood pressure reading Marion Vega PA 11/25/21 3625 Cosigned by Prosper Araujo MD at 11/26/2021 7:59 AM CDT Associated attestation - Prosper Araujo MD - 11/26/2021 7:59 AM CDT ED Attestation This patient was independently evaluated by the APC. I was available for immediate consultation andin-person evaluation if required but was not asked to do so. * Karrie Ashton RN - 11/25/2021 7:47 AM CDT Pt states generalized, red rash hives all over body. Pt noted the rash when he woke up this AM around 0600. Pt states this is the 3rd outbreak this year . Pt states they usually give me a shot inthe ER that works . Pt states taking x4 antihistamines around 0600. This RN notes macular rash on pt chest and bilat arms. Pt states redness has really gone down . documented in this encounter Plan of Treatment Not on file documented as of this encounter Visit Diagnoses Diagnosis Rash- Primary Rash and other nonspecific skin eruption Elevated blood pressure reading Elevated blood pressure reading without diagnosis of hypertension documented in this encounter Administered Medications Inactive Administered Medications - up to 3 most recent administrations Medication Order MAR Action Action Date Dose Rate Site famotidine (PEPCID) tablet 20 mg 20 mg, oral, Once, On Sun11/25/21 at 0914, For 1 dose Given 11/25/2021 9:48 AM CDT 20 mg predniSONE (DELTASONE) tablet 60 mg 60 mg, oral, Once, On Sun11/25/21 at 0914, For 1 dose Given 11/25/2021 9:48 AM CDT 60 mg documented in this encounter Discontinued Medications Medication Sig Discontinue Reason Start Date End Da te methylPREDNISolone (MEDROL DOSEPACK) 4 mg Dosepack Take 1 tablet (4 mg total) by mouth daily Take as directed on package 02/07/2021 11/25/2021 famotidine (PEPCID) 20 mg tablet Take 1 tablet (20 mg total) by mouth 2 (two) times a day 02/07/2021 11/25/2021 documented as of this encounter Active and Recently Administered Medications Times are shown in CDT. Scheduled Medication Order 11/23/2021 11/24/2021 11/25/2021 famotidine (PEPCID) tablet 20 mg (COMPLETED) 20 mg, oral, Once, On Sun11/25/21 at 0914, For 1 dose 0948 (Given - Provid er: Amairani Grimes RN) predniSONE (DELTASONE) tablet 60 mg (COMPLETED) 60 mg, oral, Once, On Sun11/25/21 at 0914, For 1 dose 0948 (Given - Provid er: Amairani Grimes RN) documented in this encounter Care Teams County Engineer Relationship Specialty Start Date End Date Vangie Valentine MD [address] [place] [id number] PCP - General Internal Medicine 06/11/19 No, Physician 05/18/18 documented as of this encounter
--- OUTSIDE RECORDS SUMMARY | 2024-05-14 16:53 | XMS_ITS | Encounter Summary ---
Author Organization [facility] Healthcare Address [address] [place] [id number] Care Team Providers Care Wrapper Opener Name Role Phone No, Physician Primary Care Provider [phone] Encounter Details Date Type Department Care Team (Late st Contact Info) Description 09/01/2016 8:07 PM CDT - 09/02/2016 6:38 AM CDT Hospital Encounter [facility] Michelle Goodman MD [address] [facility] [address] [address] Sleep disorder Social History Tobacco Use Types Packs/Day Years [...] - Respiratory Rate - - Oxygen Saturation 85% 09/01/2016 11:00 PM CDT Inhaled Oxygen Concentration - - Weight - - Height - - Body Mass Index - - documented in this encounter Plan of Treatment Not on file documented as of this encounter Procedures Procedure Name Priority Date/Time Associated Diagnosis Comments SLEEP LAB/STUDY - RESULT 09/13/2016 12:00 AM CDT BLOOD GAS (INCLUDES COOX) Routine 09/02/2016 5:09 AM CDT BLOOD GAS (INCLUDES COOX) Routine 09/01/2016 12:00 AM CDT documented in this encounter Results * SLEEP LAB/STUDY - RESULT (09/13/2016 12:00 AM CDT) Narrative 09/13/2016 12:00 AM CDT Ordered by an unspecified provider. us Historical Provider MD Final Res ult * (ABNORMAL) Blood gas (includes COOX) (09/02/2016 5:09 AM CDT) Specimen Type ARTERIAL 09/02/2016 5:36 AM CDT R2G HISTORICAL RESULTS Puncture Site RR 09/02/2016 5:36 AM CDT R2G HISTORICAL RESULTS Patient Temperature 37 C 09/02 5:36 AM CDT R2G HISTORICAL RESULTS pH 7.293(LL) 7.350 - 7.450 09/02/2016 5:36 AM CDT R2G HISTORICAL RESULTS Comment: CRITICAL VALUE CALLED and REPEATED. ?? at:0535 09/02/16 by:Anya Meléndez to:ISATU KUNZ transformation coach ?? pCO2 73.2(HH) 32.0 - 48.0 mmHg 09/02/2016 5:36 AM CDT R2G HISTORICAL RESULTS Comment: CRITICAL VALUE CALLED and REPEATED. ?? at:0535 09/02/16 by:Anya Meléndez to:Isatu KUNZ transformation coach ?? pO2 49.3(LL) 80.0 - 110.0 mmHg 09/02/2016 5:36 AM CDT R2G HISTORICAL RESULTS Comment: CRITICAL VALUE CALLED and REPEATED. ?? at:0535 09/02/16 by:Anya Meléndez to:ISATU KUNZ COMFORT FILLER ?? HCO3 34.3(H) 22.0 - 26.0 mmol/L 09/02/2016 5:36 AM CDT R2G HISTORICAL RESULTS Total CO2 36.6(H) 20.0 - 30.0 mmol/L 09/02/2016 5:36 AM CDT R2G HISTORICAL RESULTS Base Excess 5.0(H) -2.0 - 2.0 mmol/L 09/02/2016 5:36 AM CDT R2G HISTORICAL RESULTS Hemoglobin 15.9 13.8 - 17.2 g/dL 09/02/2016 5:36 AM [facility] HISTOR[facility] RES[facility] O2 Saturation 79.2(LL) 90.0 - 95.0 % 09/02/2016 5:36 AM CDT [facility] HISTORICAL RESULTS Comment: CRITICAL VALUE CALLED and REPEATED. ?? at:0536 09/02/16 by:Anya Meléndez to:ISATU JOAQUINA COMFORT FILLER ?? ABG Carboxyhemoglobin 1.3 <3.0 % 09/02/2016 5:36 AM CDT [facility] HISTORICAL RESULTS ABG Methemoglobin 0.5 <2.0 % 017 5:36 AM CDT [facility] HISTORICAL RESULTS ABG O2 Content 17.7 17.6 - 24.3 Vol % 09/02/2016 5:36 AM T [facility] HISTORICAL RESULTS A-a O2 Difference 6.4 <=10.0 017 5:36 AM T [facility] HISTORICAL RESULTS a/A Ratio 0.9 >=0.8 09/02/2016 5:36 AM T [facility] HISTORICAL RESULTS FiO2 21.0 % BG Specimen Comment SLEEP LAB 3 12/2016 5:36 AM T [facility] HISTORICAL RESULTS Talent Recruiter ID [email or web address] 09/02/2016 5:36 AM T [facility] HISTORICAL RESULTS 09/02/2016 5:09 AM CDT 09/02/2016 5:26 AM CDT Narrative [facility] HISTORICAL RESULTS - 09/02/2016 5:36 AM CDT Conditions Unspecified ?? Source Arterial ?? Comment ? PLEASE DRAW ABG AT APPROXIMATELY 0445. ??THANK YOU! us Michelle Goodman MD LAB BLOOD ORDERABLES Final Result [facility] HISTORICAL RESULTS * (ABNORMAL) Blood gas (includes COOX) (09/01/2016 12:00 AM CDT) Specimen Type ARTERIAL 09/01/2016 10:41 PM CDT [facility] HISTORICAL RESULTS Puncture Site RR Patient Temperature 37 C 09/01 10:41 PM [facility] HISTORICAL RESULTS pH 7.362 7.350 - 7.450 09/01/2016 10:41 PM [facility] HISTORICAL RESULTS pCO2 64.3(H) 32.0 - 48.0 mmHg 09/01/2016 10:41 PM [facility] HISTORICAL RESULTS pO2 46.1(LL) 80.0 - 110.0 mmHg 09/01/2016 10:41 PM [facility] HISTORICAL RESULTS Comment: CRITICAL VALUE CALLED and REPEATED. ?? at:223909/01/16 by:Graciela Gillette to: RT LISA ?? HCO3 35.6(H) 22.0 - 26.0 mmol/L 09/01/2016 10:41 PM [facility] HISTORICAL RESULTS Total CO2 37.6(H) 20.0 - 30.0 mmol/L 09/01/2016 10:41 PM [facility] HISTORICAL RESULTS Base Excess 7.8(H) -2.0 - 2.0 mmol/L 09/01/2016 10:41 PM [facility] HISTORICAL RESULTS Hemoglobin 15.6 13.8 - 17.2 g/dL 09/01/2016 10:41 PM [facility] HISTORICAL RESULTS O2 Saturation 77.9(LL) 90.0 - 95.0 % 09/01/2016 10:41 PM [facility] HISTORICAL RESULTS Comment: CRITICAL VALUE CALLED and REPEATED. ?? at:223909/01/16 by:Graciela Gillette to: RT LISA ?? ABG Carboxyhemoglobin 1.4 <3.0 % 11/2016 10:41 PM [facility] HISTORICAL RESULTS ABG Methemoglobin 0.5 <2.0 % 017 10:41 PM [facility] HISTORICAL RESULTS ABG O2 Content 17.1(L) 17.6 - 24.3 Vol % 09/01/2016 10:41 PM [facility] HISTORICAL RESULTS A-a O2 Difference 21.2(H) <=10.0 017 10:41 PM [facility] HISTORICAL RESULTS a/A Ratio 0.7(L) >=0.8 09/01/2016 10:41 PM CDT R2G HISTORICAL RESULTS FiO2 21.0 % 09/01/2016 10:41 PM CDT [facility] Signicat HISTORICAL RESULTS Talent Recruiter ID [email or web address] 09/01/2016 10:41 PM CDT [facility] HISTORICAL RESULTS 09/01/2016 09/01/2016 10: 40 PM CDT Narrative [facility] HISTORICAL RESULTS - 09/01/2016 10:41 PM CDT Conditions Room Air ?? Source Arterial ?? Comment ? PLEASE DRAW ABG SOON POSSIBLE ?? us Michelle Goodman MD LAB BLOOD ORDERABLES Final Result [facility] Signicat HISTORICAL RESULTS documented in this encounter Visit Diagnoses Diagnosis Sleep disorder Unspecified sleep disturbance documented in this encounter Care Teams Wrapper Opener Relationship Specialty Start Date End Date No, Physician PCP - General 1960 05/17/18 documented as of this encounter
--- OUTSIDE RECORDS SUMMARY | 2024-05-14 16:53 | XMS_ITS | Encounter Summary ---
Author Organization [facility] Healthcare Address [address] [place] [id number] Care Team Providers Care Water Proofer Name Role Phone No, Physician Primary Care Provider [phone] Encounter Details Date Type Department Care Team (Latest Contact Info) Description 05/20/2017 12:08 AM AN EMPLOYEE SPONSOR OR ADVOCATE AND - 05/26/2017 7:30 PM [facility] Hospital Encounter [facility] Jose Manuel Martinez MD [address] [place] [address] Acute and chronic respiratory failure with hypercapnia (CMS/HCC); Encephalopathy; Lobar pneumonia (CMS/HCC); Hypertensive heart disease with heart failure ([facility]/HCC); Type 2 diabetes mellitus with diabetic polyneuropathy ([facility]/HCC); Chronic diastolic heart failure (CMS/HCC); Acute and chronic respiratory failure with hypoxia (CMS/HCC); Chronic obstructive pulmonary disease with acute lower respiratory infection (CMS/HCC); Paroxysmal atrial fibrillation (CMS/HCC); Morbid (severe) obesity with alveolar hypoventilation (CMS/HCC); Chronic obstructive pulmonary disease with acute exacerbation ([facility]/HCC); Hyperlipidemia; Old myocardial infarction; Primary osteoarthritis of left hip; Body mass index (BMI) of 45.0-49.9 in adult (CMS/HCC); Dependence on supplemental oxygen; senior living current use of oral hypoglycemic drug; Patient's other noncompliance with medication regimen; Encounter for immunization; senior living current use of aspirin; Personal history of nicotine dependence; Other group home (current) drug therapy Social History Tobacco Use Types Packs/Day Years Used Date Smoking Tobacco: Never Assessed Sex and Gender Information Value Date Recorded Sex Assigned at Not on file Legal Sex Male 8:36 AM CDT Gender Identity Not on file Sexual Orientation Not on file documented as of this encounter Last Filed Vital Signs Vital Sign Reading Time Taken Comments Blood Pressure 136/78 05/21/2017 12:42 PM AN EMPLOYEE SPONSOR OR ADVOCATE AND Pulse 68 05/21/2017 12:42 PM AN EMPLOYEE SPONSOR OR ADVOCATE AND Temperature 36.6 ??C (97.9 ??F) 05/21/2017 1 2:42 PM AN EMPLOYEE SPONSOR OR ADVOCATE AND Respiratory Rate - - Oxygen Saturation 93% 05/21/2017 12: 42 PM AN EMPLOYEE SPONSOR OR ADVOCATE AND Inhaled Oxygen Concentration - - Weight 150.8 kg (332 lb 6.4 oz) 017 12:42 PM AN EMPLOYEE SPONSOR OR ADVOCATE AND Height 182.9 cm (6') 05/21/2017 12:42 PM AN EMPLOYEE SPONSOR OR ADVOCATE AND Body Mass Index 45.08 05/21/2017 12:42 PM AN EMPLOYEE SPONSOR OR ADVOCATE AND documented in this encounter Plan of Treatment Not on file documented as of this encounter Procedures Procedure Name Priority Date/Time Associated Diagnosis Comments CBC WITH AUTO DIFFERENTIAL Routine 05/26/2017 5:51 AM AN EMPLOYEE SPONSOR OR ADVOCATE AND MAGNESIUM Routine 05/26/2017 5:51 AM AN EMPLOYEE SPONSOR OR ADVOCATE AND BASIC METABOLIC PANEL Routine 05/26/2017 5:51 AM AN EMPLOYEE SPONSOR OR ADVOCATE AND XR CHEST PA LATERAL 2 VIEWS Routine 05/26/2017 12:00 AM AN EMPLOYEE SPONSOR OR ADVOCATE AND CBC WITH AUTO DIFFERENTIAL Routine 05/25/2017 5:21 AM AN EMPLOYEE SPONSOR OR ADVOCATE AND MAGNESIUM Routine 05/25/2017 5:21 AM AN EMPLOYEE SPONSOR OR ADVOCATE AND BASIC METABOLIC PANEL Routine 05/25/2017 5:21 AM AN EMPLOYEE SPONSOR OR ADVOCATE AND CARDIOPULMONARY DIAGNOSTICS REPORT 05/25/2017 12:00 AM AN EMPLOYEE SPONSOR OR ADVOCATE AND BLOOD GAS (INCLUDES COOX) Routine 05/24/2017 8:49 AM AN EMPLOYEE SPONSOR OR ADVOCATE AND XR CHEST PA LATERAL 2 VIEWS Routine 05/24/2017 8:37 AM AN EMPLOYEE SPONSOR OR ADVOCATE AND CBC WITH AUTO DIFFERENTIAL Routine 05/24/2017 7:08 AM AN EMPLOYEE SPONSOR OR ADVOCATE AND MAGNESIUM Routine 05/24/2017 7:08 AM AN EMPLOYEE SPONSOR OR ADVOCATE AND BASIC METABOLIC PANEL Routine 05/24/2017 7:08 AM AN EMPLOYEE SPONSOR OR ADVOCATE AND CBC WITH AUTO DIFFERENTIAL Routine 05/23/2017 6:20 AM AN EMPLOYEE SPONSOR OR ADVOCATE AND MAGNESIUM Routine 05/23/2017 6:20 AM AN EMPLOYEE SPONSOR OR ADVOCATE AND BASIC METABOLIC PANEL Routine 05/23/2017 6:20 AM AN EMPLOYEE SPONSOR OR ADVOCATE AND MICROBIOLOGY SPECIMEN REPORT (CONVERTED) Routine 05/22/2017 6:49 PM AN EMPLOYEE SPONSOR OR ADVOCATE AND MICROBIOLOGY SPECIMEN REPORT (CONVERTED) Routine 05/22/2017 6:49 PM AN EMPLOYEE SPONSOR OR ADVOCATE AND BLOOD GAS (INCLUDES COOX) Routine 05/22/2017 7:22 AM AN EMPLOYEE SPONSOR OR ADVOCATE AND BLOOD GAS (INCLUDES COOX) Routine 05/22/2017 6:39 AM AN EMPLOYEE SPONSOR OR ADVOCATE AND PROCALCITONIN POST-ANTIBIOTIC Routine 05/22/2017 4:48 AM AN EMPLOYEE SPONSOR OR ADVOCATE AND CBC WITH AUTO DIFFERENTIAL Routine 05/22/2017 4:48 AM AN EMPLOYEE SPONSOR OR ADVOCATE AND PHOSPHORUS Routine 05/22/2017 4:48 AM AN EMPLOYEE SPONSOR OR ADVOCATE AND MAGNESIUM Routine 05/22/2017 4:48 AM AN EMPLOYEE SPONSOR OR ADVOCATE AND IGE Routine 05/22/2017 4:48 AM AN EMPLOYEE SPONSOR OR ADVOCATE AND BASIC METABOLIC PANEL Routine 05/22/2017 4:48 AM AN EMPLOYEE SPONSOR OR ADVOCATE AND CARDIOLOGY REPORT 05/22/2017 12: 00 AM AN EMPLOYEE SPONSOR OR ADVOCATE AND TRANSTHORACIC ECHO (TTE) COMPLETE W DOPPLER/CF Routine 05/22/2017 12:00 AM AN EMPLOYEE SPONSOR OR ADVOCATE AND BLOOD GAS (INCLUDES COOX) Routine 05/21/2017 5:47 PM AN EMPLOYEE SPONSOR OR ADVOCATE AND STREP PNEUMONIAE AG, URINE Routine 05/21/2017 3:00 PM AN EMPLOYEE SPONSOR OR ADVOCATE AND LEGIONELLA PNEUMOPHILIA ANTIGEN, URINE Routine 05/21/2017 3:00 PM AN EMPLOYEE SPONSOR OR ADVOCATE AND CBC WITH AUTO DIFFERENTIAL Routine 05/21/2017 5:07 AM AN EMPLOYEE SPONSOR OR ADVOCATE AND ERYTHROCYTE SEDIMENTATION RATE Routine 05/21/2017 5:07 AM AN EMPLOYEE SPONSOR OR ADVOCATE AND CRP (ACUTE PHASE) Routine 05/21/2017 5:0 7 AM AN EMPLOYEE SPONSOR OR ADVOCATE AND TSH Routine 05/21/2017 5:07 AM AN EMPLOYEE SPONSOR OR ADVOCATE AND T4, FREE Routine 05/21/2017 5:07 AM AN EMPLOYEE SPONSOR OR ADVOCATE AND PHOSPHORUS Routine 05/21/2017 5:07 AM AN EMPLOYEE SPONSOR OR ADVOCATE AND B-TYPE NATRIURETIC PEPTIDE Routine 05/21/2017 5:07 AM AN EMPLOYEE SPONSOR OR ADVOCATE AND MAGNESIUM Routine 05/21/2017 5:07 AM AN EMPLOYEE SPONSOR OR ADVOCATE AND HEMOGLOBIN A1C Routine 05/21/2017 5:07 AM AN EMPLOYEE SPONSOR OR ADVOCATE AND BLOOD GAS W/LYTES & LACTATE Routine 05/21/2017 5:00 AM AN EMPLOYEE SPONSOR OR ADVOCATE AND BLOOD GAS (INCLUDES COOX) Routine 05/20/2017 4:08 AM AN EMPLOYEE SPONSOR OR ADVOCATE AND INFECTION PREVENTION MRSA ONLY (STAPHYLOCOCCUS AUREUS) PCR Routine 05/20/2017 2:20 AM AN EMPLOYEE SPONSOR OR ADVOCATE AND BLOOD GAS (INCLUDES COOX) Routine 05/20/2017 12:55 AM AN EMPLOYEE SPONSOR OR ADVOCATE AND CTA CHEST W IV CONTRAST - PE Routine 05/20/2017 12:00 AM AN EMPLOYEE SPONSOR OR ADVOCATE AND XR CHEST 1 VIEW Routine 05/20/2017 12:00 AM AN EMPLOYEE SPONSOR OR ADVOCATE AND PROCALCITONIN PRE-ANTIBIOTIC Routine 05/19/2017 9:19 PM AN EMPLOYEE SPONSOR OR ADVOCATE AND TNI WITH LIPID PANEL Routine 05/19/2017 9:19 PM AN EMPLOYEE SPONSOR OR ADVOCATE AND LACTATE Routine 05/19/2017 9:19 PM AN EMPLOYEE SPONSOR OR ADVOCATE AND CBC WITH AUTO DIFFERENTIAL Routine 05/19/2017 9:19 PM AN EMPLOYEE SPONSOR OR ADVOCATE AND APTT Routine 05/19/2017 9:19 PM AN EMPLOYEE SPONSOR OR ADVOCATE AND PROTIME-INR Routine 05/19/2017 9:19 PM AN EMPLOYEE SPONSOR OR ADVOCATE AND D-DIMER, QUANTITATIVE Routine 05/19/2017 9:19 PM AN EMPLOYEE SPONSOR OR ADVOCATE AND B-TYPE NATRIURETIC PEPTIDE Routine 05/19/2017 9:19 PM AN EMPLOYEE SPONSOR OR ADVOCATE AND DIGOXIN LEVEL Routine 05/19/2017 9:19 PM AN EMPLOYEE SPONSOR OR ADVOCATE AND COMPREHENSIVE METABOLIC PANEL Routine 05/19/2017 9:19 PM AN EMPLOYEE SPONSOR OR ADVOCATE AND XR CHEST 1 VIEW Routine 05/19/2017 12:00 AM AN EMPLOYEE SPONSOR OR ADVOCATE AND documented in this encounter Results * Magnesium (05/26/2017 5:51 AM AN EMPLOYEE SPONSOR OR ADVOCATE AND) Pathologist [facility] Magnesium 1.8 1.6 - 2.6 mg/dL 05/26/2017 7:26 AM AN EMPLOYEE SPONSOR OR ADVOCATE AND [facility] HISTORICAL RESULTS Comment:Magnesium sulfate th erapy: 3.0-9.1 mg/dL 05/26/2017 5:51 AM AN EMPLOYEE SPONSOR OR ADVOCATE AND 05/26/2017 6:46 AM AN EMPLOYEE SPONSOR OR ADVOCATE AND us Manpreet Hernandez MD LAB BLOOD ORDERABLES Final Result [facility] HISTORICAL RESULTS * (ABNORMAL) CBC with auto differential (05/26/2017 5:51 AM AN EMPLOYEE SPONSOR OR ADVOCATE AND) Pathologist [facility] WBC 7.7 4.6 - 10.2 x10 3/ul 05/26/2017 6:53 AM AN EMPLOYEE SPONSOR OR ADVOCATE AND [facility] HISTORICAL RESULTS RBC 5.42 4.11 - 5.71 x10 6/ul Hemoglobin 16.4 13.0 - 17.0 g/dl 05/26/2017 6:53 AM AN EMPLOYEE SPONSOR OR ADVOCATE AND [employer] HISTORICAL RESULTS Hct 53.7(H) 38.2 - 48.5 % 05/26/2017 6:53 AM AN EMPLOYEE SPONSOR OR ADVOCATE AND [employer] HISTORICAL RESULTS MCV 99.1(H) 80.0 - 97.0 fl MCH 30.3 27.0 - 31.2 pg MCHC 30.5(L) 31.8 - 35.4 g/dl RDW 13.7 11.6 - 14.8 % Plt Count 129 124 - 400 x10 3/ul MPV 11.8(H) 7.4 - 10.4 fl Neut % 57.2 37.0 - 85.0 % Immature Gran % 0.3 0.0 - 3.0 % Lymph % 25.9 5.0 - 45.0 % [place] % 13.2 3.0 - 15.0 % Eos % 3.0 0.0 - 7.0 % Baso % 0.4 0.0 - 2.0 % Absolute Neuts (auto) 4.4 1.7 - 8.7 x10 3/ul Immature Gran # 0.0 0.0 - 0.3 x10 3/ul Absolute Lymphs (auto) 2.0 0.2 - 4.6 x10 3/ul 05/26/2017 6:53 AM AN EMPLOYEE SPONSOR OR ADVOCATE AND [facility] HISTORICAL RESULTS Absolute Monos (auto) 1.0 0.1 - 1.5 x10 3/ul Absolute Eos (auto) 0.2 0.0 - 0.7 x10 3/ul 05/26/2017 6:53 AM AN EMPLOYEE SPONSOR OR ADVOCATE AND [facility] HISTORICAL RESULTS Absolute Basos (auto) 0.0 0.0 - 0.2 x10 3/ul Nucleat RBC Rel Count 0.0 0 - 3 #/100WBC Absolute Nucleated RBC 0.00 x10 3/ul Absolute Neutrophils 4400 200 - 8000 /ul 05/26/2017 5:51 AM AN EMPLOYEE SPONSOR OR ADVOCATE AND 05/26/2017 6:46 AM [facility] Manpreet Hernandez MD LAB BLOOD ORDERABLES Final Result [facility] HISTORICAL RESULTS * (ABNORMAL) Basic metabolic panel (05/26/2017 5:51 AM AN EMPLOYEE SPONSOR OR ADVOCATE AND) Sodium 140 135 - 145 mmol/L Potassium 4.1 3.3 - 5.1 mmol/L Chloride 94(L) 96 - 108 mmol/L Carbon Dioxide 40(H) 22 - 32 mmol/L Anion Gap 6(L) 7 - 16 Glucose 84 70 - 100 mg/dL 05/26/2017 7:26 AM AN EMPLOYEE SPONSOR OR ADVOCATE AND [facility] HISTORICAL RESULTS BUN 14 6 - 20 mg/dL 05/26/2017 7:26 AM [employer] [facility] HISTORICAL RESULTS Creatinine 0.6 0.5 - 1.3 mg/dL 05/26/2017 7:26 AM [employer] [facility] HISTORICAL RESULTS Comment: NOTE: Estimated GFR (Cockroft-Gault) will NOT be calculated unless patient Height and Weight were entered. Also, Kidney Disease Stage (GFR) and Estimated GFR (Cockroft-Gault) will NOT be calculated if Creatinine result is <0.2. Kidney Disease Stage > 90 mL/MIN 05/26/2017 7:26 AM [employer] [facility] HISTORICAL RESULTS Comment: NOTE; ??The GFR is an estimated [...] mL/min ? Kidney failure or on dialysis @ Est GFR (Cockcroft-G) 203 ml/MIN 05/26/2017 7:26 AM [employer] [facility] [employer] [facility] HISTORICAL RESULTS Comment: Estimated GFR(Cockroft-Gault)is used to calculate patient medication dosage Calcium 9.0 8.6 - 10.0 mg/dL 05/26/2017 7:26 AM [employer] [facility] HISTORICAL RESULTS 05/26/2017 5:51 AM AN EMPLOYEE SPONSOR OR ADVOCATE AND 05/26/2017 6:46 AM AN EMPLOYEE SPONSOR OR ADVOCATE AND us Manpreet Hernandez MD LAB BLOOD ORDERABLES Final Result [facility] HISTORICAL RESULTS * XR Chest Pa Lateral 2 Views (05/26/2017 12:00 AM AN EMPLOYEE SPONSOR OR ADVOCATE AND) Anatomical Region Laterality Modality Body, Chest N/A Radiographic Wendy ging 05/26/2017 Impressions 05/26/2017 2:01 PM AN EMPLOYEE SPONSOR OR ADVOCATE AND ?? 1. ??Similar appearance of bibasilar pneumonia. 2. ??Left pleural effusion is similar. 3. ??Cardiomegaly with mild vascular congestion. THIS IS AN ELECTRONICALLY VERIFIED REPORT 05/26/2017 1:57 PM: ??Jacob Sandoval M.D. ?? Jacob Sandoval M.D. AK:[email or web address] 01:57 PM 01:57 PM QOQ [EOD] Narrative 05/26/2017 2:01 PM AN EMPLOYEE SPONSOR OR ADVOCATE AND EXAMINATION: ??Chest 2 views HISTORY: ??Pneumonia follow up. ??Shortness of breath for 3 weeks. COMPARISON: ??Chest radiographs 05/24/17 and 05/20/17. TECHNIQUE: ??2 views of the chest FINDINGS: ??The heart size is enlarged, but stable. ??The pulmonary vasculature is mildly prominent. ??Bibasilar opacities are present. ??The right lower lobe, a more linear appearing opacities probably related to atelectasis. ??There is probable superimposed infiltrate in the right lower lobe. ??The left lower lobe opacities favored to represent infiltrate. ??There is a small left pleural effusion. Procedure Note Provider, Richard, - 10/12/2020 EXAMINATION: Chest 2 views HISTORY: Pneumonia follow up. Shortness of breath for 3 weeks. COMPARISON: Chest radiographs 05/24/17 and 05/20/17. TECHNIQUE: 2 views of the chest FINDINGS: The heart size is enlarged, but stable. The pulmonaryvasculature is mildly prominent. Bibasilar opacities are present. The right lowerlobe, a more linear appearing opacities probably related to atelectasis. Thereis probable superimposed infiltrate in the right lower lobe. The left lowerlobe opacities favored to represent infiltrate. There is a small left pleural effusion. IMPRESSION: 1. Similar appearance of bibasilar pneumonia. 2. Left pleural effusion is similar. 3. Cardiomegaly with mild vascular congestion. THIS IS AN ELECTRONICALLY VERIFIED REPORT 05/26/2017 1:57 PM: Jacob Sandoval M.D. Jacob Sandoval M.D. AK:[email or web address] 01:57 PM 01:57 PM QOQ [EOD] Turner Oleary MD IMG XR PROCEDURES Final Resu lt * Magnesium (05/25/2017 5:21 AM AN EMPLOYEE SPONSOR OR ADVOCATE AND) Pathologist [facility] Magnesium 1.9 1.6 - 2.6 mg/dL Comment:Magnesium sulfate th erapy: 3.0-9.1 mg/dL 05/25/2017 5:21 AM AN EMPLOYEE SPONSOR OR ADVOCATE AND 05/25/2017 6:20 AM AN EMPLOYEE SPONSOR OR ADVOCATE AND Manpreet Hernandez MD LAB BLOOD ORDERABLES Final Result [facility] HISTORICAL RESULTS * (ABNORMAL) CBC with auto differential (05/25/2017 5:21 AM AN EMPLOYEE SPONSOR OR ADVOCATE AND) WBC 8.1 4.6 - 10.2 x10 3/ul 05/25/2017 6:27 AM AN EMPLOYEE SPONSOR OR ADVOCATE AND [facility] HISTORICAL RESULTS RBC 5.52 4.11 - 5.71 x10 6/ul 05/25/2017 6:27 AM AN EMPLOYEE SPONSOR OR ADVOCATE AND [facility] HISTORICAL RESULTS Hemoglobin 16.5 13.0 - 17.0 g/dl Hct 53.7(H) 38.2 - 48.5 % 05/25/2017 6:27 AM AN EMPLOYEE SPONSOR OR ADVOCATE AND [employer] HISTORICAL RESULTS MCV 97.3(H) 80.0 - 97.0 fl 05/25/2017 6:27 AM AN EMPLOYEE SPONSOR OR ADVOCATE AND [employer] HISTORICAL RESULTS MCH 29.9 27.0 - 31.2 pg MCHC 30.7(L) 31.8 - 35.4 g/dl RDW 13.5 11.6 - 14.8 % Plt Count 129 124 - 400 x10 3/ul MPV 11.9(H) 7.4 - 10.4 fl Neut % 60.9 37.0 - 85.0 % Immature Gran % 0.2 0.0 - 3.0 % Lymph % 23.6 5.0 - 45.0 % [place] % 12.6 3.0 - 15.0 % Eos % 2.3 0.0 - 7.0 % Baso % 0.4 0.0 - 2.0 % Absolute Neuts (auto) 4.9 1.7 - 8.7 x10 3/ul Immature Gran # 0.0 0.0 - 0.3 x10 3/ul Absolute Lymphs (auto) 1.9 0.2 - 4.6 x10 3/ul Absolute Monos (auto) 1.0 0.1 - 1.5 x10 3/ul Absolute Eos (auto) 0.2 0.0 - 0.7 x10 3/ul 05/25/2017 6:27 AM AN EMPLOYEE SPONSOR OR ADVOCATE AND [facility] HISTORICAL RESULTS Absolute Basos (auto) 0.0 0.0 - 0.2 x10 3/ul Nucleat RBC Rel Count 0.0 0 - 3 #/100WBC Absolute Nucleated RBC 0.00 x10 3/ul Absolute Neutrophils 4900 200 - 8000 /ul 05/25/2017 6:27 AM [facility] [employer] [facility] HISTORICAL RESULTS 05/25/2017 5:21 AM AN EMPLOYEE SPONSOR OR ADVOCATE AND 05/25/2017 6:20 AM [facility] Manpreet Hernandez MD LAB BLOOD ORDERABLES Final Result [facility] HISTORICAL RESULTS * (ABNORMAL) Basic metabolic panel (05/25/2017 5:21 AM [facility]) Sodium 142 135 - 145 mmol/L Potassium 4.4 3.3 - 5.1 mmol/L Chloride 97 96 - 108 mmol/L Carbon Dioxide 40(H) 22 - 32 mmol/L Anion Gap 5(L) 7 - 16 05/25/2017 6:48 AM [facility] [employer] [facility] HISTORICAL RESULTS Glucose 81 70 - 100 mg/dL BUN 13 6 - 20 mg/dL Creatinine 0.5 0.5 - 1.3 mg/dL 05/25/2017 6:48 AM [facility] [employer] HISTORICAL RESULTS Comment: NOTE: Estimated GFR (Cockroft-Gault) will NOT be calculated unless patient Height and Weight were entered. Also, Kidney Disease Stage (GFR) and Estimated GFR (Cockroft-Gault) will NOT be calculated if Creatinine result is <0.2. Kidney Disease Stage > 90 mL/MIN 05/25/2017 6:48 AM [facility] [employer] [facility] HISTORICAL RESULTS Comment: NOTE; ??The GFR is an estimated [...] mL/min ? Kidney failure or on dialysis @ Est GFR (Cockcroft-G) 244 ml/MIN 05/25/2017 6:48 AM [facility] [employer] [facility] HISTORICAL RESULTS Comment: Estimated GFR(Cockroft-Gault)is used to calculate patient medication dosage Calcium 9.1 8.6 - 10.0 mg/dL 05/25/2017 6:48 AM [facility] [employer] HISTORICAL RESULTS 05/25/2017 5:21 AM AN EMPLOYEE SPONSOR OR ADVOCATE AND 05/25/2017 6:20 AM AN EMPLOYEE SPONSOR OR ADVOCATE AND us Manpreet Hernandez MD LAB BLOOD ORDERABLES Final Result [facility] HISTORICAL RESULTS * CARDIOPULMONARY DIAGNOSTICS REPORT (05/25/2017 12:00 AM AN EMPLOYEE SPONSOR OR ADVOCATE AND) Narrative 05/25/2017 12:00 AM AN EMPLOYEE SPONSOR OR ADVOCATE AND Ordered by an unspecified provider. us Historical Provider NURSING COMMUNICATION Fin al Result * (ABNORMAL) Blood gas (includes COOX) (05/24/2017 8:49 AM AN EMPLOYEE SPONSOR OR ADVOCATE AND) Specimen Type ARTERIAL 05/24/2017 9:02 AM AN EMPLOYEE SPONSOR OR ADVOCATE AND [employer] HISTORICAL RESULTS Puncture Site RR 05/24/2017 9:02 AM [facility] [employer] HISTORICAL RESULTS Patient Temperature 37.0 C 05/24 9:02 AM [employer] HISTORICAL RESULTS pH 7.368 7.350 - 7.450 05/24/2017 9:02 AM AN EMPLOYEE SPONSOR OR ADVOCATE AND [employer] HISTORICAL RESULTS pCO2 68.9(HH) 32.0 - 48.0 mmHg Comment: CRITICAL VALUE CALLED and REPEATED. ?? at:0901 05/24/17 by:Briana Alvarez to: RAYMOND KOTHARI [id number] ?? pO2 66.0(L) 80.0 - 110.0 mmHg HCO3 38.6(H) 22.0 - 26.0 mmol/L Total CO2 40.8(H) 20.0 - 30.0 mmol/L Base Excess 9.8(H) -2.0 - 2.0 mmol/L Hemoglobin 17.6(H) 13.8 - 17.2 g/dL O2 Saturation 90.0 90.0 - 95.0 % ABG Carboxyhemoglobin 1.5 <3.0 % 9:02 AM [employer] HISTORICAL RESULTS ABG Methemoglobin 0.4 <2.0 % 017 9:02 AM [employer] HISTORICAL RESULTS ABG O2 Content 22.2 17.6 - 24.3 Vol % A-a O2 Difference 133.5(H) <=10.0 017 9:02 AM [facility] HISTORICAL RESULTS a/A Ratio 0.3(L) >=0.8 05/24/2017 9:02 AM AN EMPLOYEE SPONSOR OR ADVOCATE AND [facility] HISTORICAL RESULTS O2 Delivery Device [employer]XY[employer] 2016 9:02 AM AN EMPLOYEE SPONSOR OR ADVOCATE AND [facility] HISTORICAL RESULTS Liter Flow 5.0 05/24/2017 9:02 AM AN EMPLOYEE SPONSOR OR ADVOCATE AND [facility] HISTORICAL RESULTS FiO2 > 40.0 % BG Specimen Comment [id number] 05/24 9:02 AM [facility] HISTORICAL RESULTS Bedspread Inspector ID NEB 05/24/2017 8:49 AM AN EMPLOYEE SPONSOR OR ADVOCATE AND 05/24/2017 8:57 AM AN EMPLOYEE SPONSOR OR ADVOCATE AND Narrative [facility] HISTORICAL RESULTS - 05/24/2017 9:02 AM AN EMPLOYEE SPONSOR OR ADVOCATE AND Conditions Oxygen ?? Source Arterial ?? Comment ? or BIPAP us Gela RAO LAB BLOOD ORDERABLES Final R esult [facility] HISTORICAL RESULTS * XR Chest Pa Lateral 2 Views (05/24/2017 8:37 AM AN EMPLOYEE SPONSOR OR ADVOCATE AND) Anatomical Region Laterality Modality Body, Chest N/A Radiographic Wendy ging 05/24/2017 8:37 AM AN EMPLOYEE SPONSOR OR ADVOCATE AND Impressions 05/24/2017 1:40 PM AN EMPLOYEE SPONSOR OR ADVOCATE AND 1. ??Mild interval increase in bibasilar opacities, likely a combination of atelectasis and pneumonia. 2. ??Small left-sided pleural effusion. 3. ??Persistent mild central pulmonary vascular congestion. THIS IS AN ELECTRONICALLY VERIFIED REPORT 05/24/2017 1:36 PM: ??Bull Clark M.D. ?? Bull Clark M.D. HL:hl 01:36 PM 01:36 PM [facility] [EOD] Narrative 05/24/2017 1:40 PM AN EMPLOYEE SPONSOR OR ADVOCATE AND EXAM: Two-view chest x-ray COMPARISON: Chest X-ray: ??Dated 05/20/2017 HISTORY: Shortness of breath for 2 weeks. FINDINGS: Stable cardiomegaly. ??There is persistent mild central pulmonary vascular congestion. ??Slight interval increase in bibasilar opacities, likely a combination of atelectasis and pneumonia. ??The right lower lobe opacities somewhat linear in nature and is likely more atelectasis. ??Small left pleural effusion. Procedure Note Provider, MD Richard - 10/12/2020 EXAM: Two-view chest x-ray COMPARISON: Chest X-ray: Dated 05/20/2017 HISTORY: Shortness of breath for 2 weeks. FINDINGS: Stable cardiomegaly. There is persistent mild central pulmonary vascular congestion. Slight interval increase in bibasilar opacities,likely a combination of atelectasis and pneumonia. The right lower lobeopacities somewhat linear in nature and is likely more atelectasis. Small leftpleural effusion. IMPRESSION: 1. Mild interval increase in bibasilar opacities, likely a combination of atelectasis and pneumonia. 2. Small left-sided pleural effusion. 3. Persistent mild central pulmonary vascular congestion. THIS IS AN ELECTRONICALLY VERIFIED REPORT 05/24/2017 1:36 PM: Bull Clark M.D. Bull Clark M.D. HL:hl 01:36 PM 01:36 PM [facility] [EOD] us Gela RAO IMG XR PROCEDURES Final Resu lt * Magnesium (05/24/2017 7:08 AM AN EMPLOYEE SPONSOR OR ADVOCATE AND) Magnesium 1.7 1.6 - 2.6 mg/dL 05/24/2017 7:47 AM [facility] H[facility] Comment:Magnesium sulfate th erapy: 3.0-9.1 mg/dL 05/24/2017 7:08 AM AN EMPLOYEE SPONSOR OR ADVOCATE AND 05/24/2017 7:12 AM AN EMPLOYEE SPONSOR OR ADVOCATE AND us Manpreet Hernandez MD LAB BLOOD ORDERABLES Final Result [facility] HISTORICAL RESULTS * (ABNORMAL) CBC with auto differential (05/24/2017 7:08 AM AN EMPLOYEE SPONSOR OR ADVOCATE AND) WBC 8.3 4.6 - 10.2 x10 3/ul 05/24/2017 7:18 AM [facility] [employer] HISTORICAL RESULTS RBC 5.39 4.11 - 5.71 x10 6/ul 05/24/2017 7:18 AM [facility] [employer] HISTORICAL RESULTS Hemoglobin 16.4 13.0 - 17.0 g/dl 05/24/2017 7:18 AM [facility] [employer] HISTORICAL RESULTS Hct 52.7(H) 38.2 - 48.5 % 05/24/2017 7:18 AM [facility] [employer] HISTORICAL RESULTS MCV 97.8(H) 80.0 - 97.0 fl 05/24/2017 7:18 AM [facility] [employer] HISTORICAL RESULTS MCH 30.4 27.0 - 31.2 pg 05/24/2017 7:18 AM [facility] [employer] HISTORICAL RESULTS MCHC 31.1(L) 31.8 - 35.4 g/dl 05/24/2017 7:18 AM [facility] [employer] HISTORICAL RESULTS RDW 13.9 11.6 - 14.8 % 05/24/2017 7:18 AM [facility] [employer] HISTORICAL RESULTS Plt Count 131 124 - 400 x10 3/ul 05/24/2017 7:18 AM AN [employer] HISTORICAL RESULTS MPV 11.3(H) 7.4 - 10.4 fl 05/24/2017 7:18 AM [facility] [employer] HISTORICAL RESULTS Neut % 60.0 37.0 - 85.0 % 05/24/2017 7:18 AM [facility] [employer] HISTORICAL RESULTS Immature Gran % 0.5 0.0 - 3.0 % 05/24/2017 7:18 [facility] Lymph % 23.8 5.0 - 45.0 % 05/24/2017 7:18 [facility] [place] % 12.4 3.0 - 15.0 % 05/24/2017 7:18 [facility] Eos % 2.9 0.0 - 7.0 % 05/24/2017 7:18 [facility] Baso % 0.4 0.0 - 2.0 % 05/24/2017 7:18 [facility] Absolute Neuts (auto) 5.0 1.7 - 8.7 x10 3/ul 05/24/2017 7:18 AM [facility] Immature Gran # 0.0 0.0 - 0.3 x10 3/ul 05/24/2017 7:18 AM [employer] [facility] HISTORICAL RESULTS Absolute Lymphs (auto) 2.0 0.2 - 4.6 x10 3/ul 05/24/2017 7:18 AM [employer] [facility] HISTORICAL RESULTS Absolute Monos (auto) 1.0 0.1 - 1.5 x10 3/ul 05/24/2017 7:18 AM AN EMPLOYEE SPONSOR OR [employer]ATE AND [facility] [employer] [facility] HISTORICAL RESULTS Absolute Eos (auto) 0.2 0.0 - 0.7 x10 3/ul 05/24/2017 7:18 AM AN EMPLOYEE SPONSOR OR ADVOCATE AND [facility] [employer] [facility] HISTORICAL RESULTS Absolute Basos (auto) 0.0 0.0 - 0.2 x10 3/ul 05/24/2017 7:18 AM [employer] [facility] [employer] [facility] HISTORICAL RESULTS Nucleat RBC Rel Count 0.0 0 - 3 #/100WBC 05/24/2017 7:18 AM [employer] [facility] [employer] [facility] HISTORICAL RESULTS Absolute Nucleated RBC 0.00 x10 3/ul 05/24/2017 7:18 AM [employer] [facility] [employer] [facility] HISTORICAL RESULTS Absolute Neutrophils 5000 200 - 8000 /ul 05/24/2017 7:18 AM [employer] [facility] [employer] [facility] HISTORICAL RESULTS 05/24/2017 7:08 AM AN EMPLOYEE SPONSOR OR ADVOCATE AND 05/24/2017 7:12 AM AN EMPLOYEE SPONSOR OR ADVOCATE AND us Manpreet Hernandez MD LAB BLOOD ORDERABLES Final Result [facility] HISTORICAL RESULTS * (ABNORMAL) Basic metabolic panel (05/24/2017 7:08 AM AN EMPLOYEE SPONSOR OR ADVOCATE AND) [facility] Signature Sodium 140 135 - 145 mmol/L Potassium 4.6 3.3 - 5.1 mmol/L Chloride 95(L) 96 - 108 mmol/L Carbon Dioxide 40(H) 22 - 32 mmol/L Anion Gap 5(L) 7 - 16 Glucose 92 70 - 100 mg/dL BUN 15 6 - 20 mg/dL Creatinine 0.5 0.5 - 1.3 mg/dL Comment: NOTE: Estimated GFR (Cockroft-Gault) will NOT be calculated unless patient Height and Weight were entered. Also, Kidney Disease Stage (GFR) and Estimated GFR (Cockroft-Gault) will NOT be calculated if Creatinine result is <0.2. Kidney Disease Stage > 90 mL/MIN Comment: NOTE; ??The GFR is an estimated [...] mL/min ? Kidney failure or on dialysis @ Est GFR (Cockcroft-G) 245 ml/MIN Comment: Estimated GFR(Cockroft-Gault)is used to calculate patient medication dosage Calcium 8.5(L) 8.6 - 10.0 mg/dL 05/24/2017 7:08 AM AN EMPLOYEE SPONSOR OR ADVOCATE AND 05/24/2017 7:12 AM AN EMPLOYEE SPONSOR OR ADVOCATE AND Manpreet Hernandez MD LAB BLOOD ORDERABLES Final Result Performing Organization Address [facility]/ZIP Co de Phone Number [facility] HISTORICAL RESULTS * Magnesium (05/23/2017 6:20 AM AN EMPLOYEE SPONSOR OR ADVOCATE AND) Magnesium 2.0 1.6 - 2.6 mg/dL Comment:Magnesium sulfate th erapy: 3.0-9.1 mg/dL 05/23/2017 6:20 AM AN EMPLOYEE SPONSOR OR ADVOCATE AND 05/23/2017 6:58 AM AN EMPLOYEE SPONSOR OR ADVOCATE AND Manpreet Hernandez MD LAB BLOOD ORDERABLES Final Result [facility] HISTORICAL RESULTS * (ABNORMAL) CBC with auto differential (05/23/2017 6:20 AM AN EMPLOYEE SPONSOR OR ADVOCATE AND) WBC 7.8 4.6 - 10.2 x10 3/ul RBC 5.40 4.11 - 5.71 x10 6/ul Hemoglobin 16.7 13.0 - 17.0 g/dl Hct 55.3(H) 38.2 - 48.5 % MCV 102.4(H) 80.0 - 97.0 fl MCH 30.9 27.0 - 31.2 pg MCHC 30.2(L) 31.8 - 35.4 g/dl RDW 14.0 11.6 - 14.8 % Plt Count 148 124 - 400 x10 3/ul MPV 11.3(H) 7.4 - 10.4 fl Neut % 57.6 37.0 - 85.0 % Immature Gran % 0.6 0.0 - 3.0 % Lymph % 25.3 5.0 - 45.0 % [place] % 13.2 3.0 - 15.0 % Eos % 3.0 0.0 - 7.0 % Baso % 0.3 0.0 - 2.0 % Absolute Neuts (auto) 4.5 1.7 - 8.7 x10 3/ul Immature Gran # 0.1 0.0 - 0.3 x10 3/ul Absolute Lymphs (auto) 2.0 0.2 - 4.6 x10 3/ul Absolute Monos (auto) 1.0 0.1 - 1.5 x10 3/ul Absolute Eos (auto) 0.2 0.0 - 0.7 x10 3/ul 05/23/2017 7:12 AM AN EMPLOYEE SPONSOR OR ADVOCATE AND [facility] HISTORICAL RESULTS Absolute Basos (auto) 0.0 0.0 - 0.2 x10 3/ul Nucleat RBC Rel Count 0.0 0 - 3 #/100WBC Absolute Nucleated RBC 0.00 x10 3/ul Absolute Neutrophils 4600 200 - 8000 /ul 05/23/2017 6:20 AM AN EMPLOYEE SPONSOR OR ADVOCATE AND 05/23/2017 6:58 AM [facility] us Manpreet Hernandez MD LAB BLOOD ORDERABLES Final Result [facility] HISTORICAL RESULTS * (ABNORMAL) Basic metabolic panel (05/23/2017 6:20 AM [facility]) Sodium 144 135 - 145 mmol/L Potassium 4.7 3.3 - 5.1 mmol/L Chloride 98 96 - 108 mmol/L Carbon Dioxide 43(H) 22 - 32 mmol/L Anion Gap 3(L) 7 - 16 Glucose 96 70 - 100 mg/dL BUN 16 6 - 20 mg/dL Creatinine 0.6 0.5 - 1.3 mg/dL Comment: NOTE: Estimated GFR (Cockroft-Gault) will NOT be calculated unless patient Height and Weight were entered. Also, Kidney Disease Stage (GFR) and Estimated GFR (Cockroft-Gault) will NOT be calculated if Creatinine result is <0.2. Kidney Disease Stage > 90 mL/MIN Comment: NOTE; ??The GFR is an estimated [...] mL/min ? Kidney failure or on dialysis @ Est GFR (Cockcroft-G) 205 ml/MIN Comment: Estimated GFR(Cockroft-Gault)is used to calculate patient medication dosage Calcium 8.9 8.6 - 10.0 mg/dL 05/23/2017 6:20 AM AN EMPLOYEE SPONSOR OR ADVOCATE AND 05/23/2017 6:58 AM AN EMPLOYEE SPONSOR OR ADVOCATE AND us Manpreet Hernandez MD LAB BLOOD ORDERABLES Final Result [facility] HISTORICAL RESULTS * Microbiology Specimen Report (Converted) (05/22/2017 6:49 PM AN EMPLOYEE SPONSOR OR ADVOCATE AND) 05/22/2017 6:49 PM AN EMPLOYEE SPONSOR OR ADVOCATE AND 05/22/2017 6:55 PM AN EMPLOYEE SPONSOR OR ADVOCATE AND Narrative [facility] HISTORICAL RESULTS - 05/22/2017 6:49 PM AN EMPLOYEE SPONSOR OR ADVOCATE AND Microbiology Specimen Report (Converted) SPECIMEN [id number] ?? COLLECTED: 2017-05-22 18:49:00 [id number] ?? REQ#: [id number] REQUESTING DR: Michelle Goodman MD ?? SOURCE: BLOOD ?? SP DESC: --- PROCEDURE --- ?--- RESULT --- ?? CULTURE BLOOD ADULT (SET OF 2) ??(Final) ??- ??Performed at [facility] ?* NO GROWTH DAY 5 - [facility] ? [address] [place] [address] ? [place] [address] ? Jamison Zarate MD Procedure Note 2018 Microbiology Specimen Report (Converted) SPECIMEN [id number] COLLECTED: 2017-05-22 18:49:00 [id number] REQ#:[id number] REQUESTING DR: Michelle Goodman MD SOURCE: BLOOD SP DESC: --- PROCEDURE --- --- RESULT --- CULTURE BLOOD ADULT (SET OF 2) (Final) - Performed at [facility] * NO GROWTH DAY 5 - [place] [address] Jamison Zarate MD Michelle Goodman MD LAB BLOOD ORDERABLES Final Result [facility] HISTORICAL RESULTS * Microbiology Specimen Report (Converted) (05/22/2017 6:49 PM AN EMPLOYEE SPONSOR OR ADVOCATE AND) 05/22/2017 6:49 PM AN EMPLOYEE SPONSOR OR ADVOCATE AND 05/22/2017 6:55 PM AN EMPLOYEE SPONSOR OR ADVOCATE AND Narrative [facility] HISTORICAL RESULTS - 05/22/2017 6:49 PM AN EMPLOYEE SPONSOR OR ADVOCATE AND Microbiology Specimen Report (Converted) SPECIMEN [id number] ?? COLLECTED: 2017-05-22 18:49:00 [id number] ?? REQ#: [id number] REQUESTING DR: Michelle Goodman MD ?? SOURCE: BLOOD ?? SP DESC: --- PROCEDURE --- ?--- RESULT --- ?? CULTURE BLOOD ADULT (SET OF 2) ??(Final) ??- ??Performed at [facility] ?* NO GROWTH DAY 5 - [facility] ? [address] [place] [address] ? [place] [address] ? Jamison Zarate MD Procedure Note 2018 Microbiology Specimen Report (Converted) SPECIMEN [id number] COLLECTED: 2017-05-22 18:49:00 [id number] REQ#:[id number] REQUESTING DR: Michelle Goodman MD SOURCE: BLOOD SP DESC: --- PROCEDURE --- --- RESULT --- CULTURE BLOOD ADULT (SET OF 2) (Final) - Performed at [facility] * NO GROWTH DAY 5 - [place] [address] Jamison Zarate MD Michelle Goodman MD LAB BLOOD ORDERABLES Final Result [employer] HISTORICAL RESULTS * (ABNORMAL) Blood gas (includes COOX) (05/22/2017 7:22 AM AN EMPLOYEE SPONSOR OR ADVOCATE AND) Specimen Type ARTERIAL 05/22/2017 7:32 AM AN EMPLOYEE SPONSOR OR ADVOCATE AND [employer] HISTORICAL RESULTS Puncture Site LR 05/22/2017 7:32 AM AN EMPLOYEE SPONSOR OR ADVOCATE AND [employer] HISTORICAL RESULTS Patient Temperature 37.0 C 05/22 7:32 AM AN EMPLOYEE SPONSOR OR ADVOCATE AND [employer] HISTORICAL RESULTS pH 7.391 7.350 - 7.450 05/22/2017 7:32 AM AN EMPLOYEE SPONSOR OR ADVOCATE AND [employer] HISTORICAL RESULTS pCO2 71.0(HH) 32.0 - 48.0 mmHg 05/22/2017 7:32 AM AN EMPLOYEE SPONSOR OR ADVOCATE AND [employer] HISTORICAL RESULTS Comment: CRITICAL VALUE CALLED and REPEATED. ?? at:07Aleida 05/22/17 by:Alexandro Rogel to: RAYMOND [id number] ?? pO2 58.5(L) 80.0 - 110.0 mmHg 05/22/2017 7:32 [facility] HCO3 42.1(H) 22.0 - 26.0 mmol/L Total CO2 44.3(H) 20.0 - 30.0 mmol/L Base Excess 13.1(H) -2.0 - 2.0 mmol/L 05/22/2017 7:32 AM [facility] [employer] [facility] HISTORICAL RESULTS Hemoglobin 16.8 13.8 - 17.2 g/dL 05/22/2017 7:32 AM [facility] [employer] [facility] HISTORICAL RESULTS O2 Saturation 87.5(L) 90.0 - 95.0 % 05/22/2017 7:32 AM [facility] ABG Carboxyhemoglobin 1.5 <3.0 % 7:32 AM [facility] ABG Methemoglobin 0.6 <2.0 % 017 7:32 AM [facility] [employer] [facility] HISTORICAL RESULTS ABG O2 Content 20.6 17.6 - 24.3 Vol % A-a O2 Difference 138.4(H) <=10.0 017 7:32 AM [facility] a/A Ratio 0.3(L) >=0.8 05/22/2017 7:32 AM [facility] [employer] [facility] HISTORICAL RESULTS O2 Delivery Device BIPAP 2016 7:32 AM [facility] [employer] [facility] HISTORICAL RESULTS FiO2 40.0 % 05/22/2017 7:32 AM [facility] [employer] [facility] HISTORICAL RESULTS Mechanical Rate 20 7 7:32 AM [facility] [employer] [facility] HISTORICAL RESULTS Mode BiPAP 22/8 05/22/2017 7:32 AM [facility] [employer] [facility] HISTORICAL RESULTS BG Specimen Comment [id number] 05/22 7:32 AM [facility] [employer] [facility] HISTORICAL RESULTS Bedspread Inspector ID [id number] INTERNSHIP 05/22/2017 7:22 AM AN EMPLOYEE SPONSOR OR ADVOCATE AND 05/22/2017 7:26 AM AN EMPLOYEE SPONSOR OR ADVOCATE AND Narrative [facility] HISTORICAL RESULTS - 05/22/2017 7:32 AM AN EMPLOYEE SPONSOR OR ADVOCATE AND Conditions Unspecified ?? Source Arterial Symone Jiménez MD LAB BLOOD ORDERA BLES Final Result [facility] HISTORICAL RESULTS * (ABNORMAL) Blood gas (includes COOX) (05/22/2017 6:39 AM AN EMPLOYEE SPONSOR OR ADVOCATE AND) Specimen Type ARTERIAL 05/22/2017 6:49 AM [facility] [employer] HISTORICAL RESULTS Puncture Site RR Patient Temperature 37.0 C 05/22 6:49 AM [facility] HISTORICAL RESULTS pH 7.363 7.350 - 7.450 pCO2 76.2(HH) 32.0 - 48.0 mmHg Comment: CRITICAL VALUE CALLED and REPEATED. ?? at:0648 05/22/17 by:Sweta Navarrete to: RAYMOND [id number] ?? pO2 59.9(L) 80.0 - 110.0 mmHg HCO3 42.2(H) 22.0 - 26.0 mmol/L Total CO2 44.6(H) 20.0 - 30.0 mmol/L Base Excess 12.4(H) -2.0 - 2.0 mmol/L Hemoglobin 16.9 13.8 - 17.2 g/dL O2 Saturation 87.6(L) 90.0 - 95.0 % ABG Carboxyhemoglobin 1.6 <3.0 % 05/22/2017 6:49 AM AN EMPLOYEE SPONSOR OR ADVOCATE AND [facility] HISTORICAL RESULTS ABG Methemoglobin 0.6 <2.0 % 017 6:49 AM AN EMPLOYEE SPONSOR OR ADVOCATE AND [facility] HISTORICAL RESULTS ABG O2 Content 20.8 17.6 - 24.3 Vol % 05/22/2017 6:49 AM AN EMPLOYEE SPONSOR OR ADVOCATE AND [facility] HISTORICAL RESULTS A-a O2 Difference 130.1(H) <=10.0 017 6:49 AM AN EMPLOYEE SPONSOR OR ADVOCATE AND [facility] HISTORICAL RESULTS a/A Ratio 0.3(L) >=0.8 05/22/2017 6:49 AM AN EMPLOYEE SPONSOR OR ADVOCATE AND [facility] HISTORICAL RESULTS O2 Delivery Device BIPAP 2016 6:49 AM AN EMPLOYEE SPONSOR OR ADVOCATE AND [facility] HISTORICAL RESULTS FiO2 40.0 % Mechanical Rate 20 7 6:49 AM [facility] HISTORICAL RESULTS Mode BiPAP 22/8 05/22/2017 6:49 AM AN EMPLOYEE SPONSOR OR ADVOCATE AND [facility] HISTORICAL RESULTS BG Specimen Comment IMCU 24-05/22 6:49 AM AN EMPLOYEE SPONSOR OR ADVOCATE AND [facility] HISTORICAL RESULTS Bedspread Inspector ID PRB 05/22/2017 6:49 AM AN EMPLOYEE SPONSOR OR ADVOCATE AND [facility] HISTORICAL RESULTS 05/22/2017 6:39 AM AN EMPLOYEE SPONSOR OR ADVOCATE AND 05/22/2017 6:45 AM AN EMPLOYEE SPONSOR OR ADVOCATE AND Narrative [facility] HISTORICAL RESULTS - 05/22/2017 6:49 AM AN EMPLOYEE SPONSOR OR ADVOCATE AND Conditions BIPAP ?? Source Arterial Amina Gee MD LAB BLOOD ORDERABLES F inal Result [facility] HISTORICAL RESULTS * IgE (05/22/2017 4:48 AM AN EMPLOYEE SPONSOR OR ADVOCATE AND) IgE 90 0 - 100 IU/mL 05/22/2017 4:48 AM AN EMPLOYEE SPONSOR OR ADVOCATE AND 05/22/2017 5:03 AM AN EMPLOYEE SPONSOR OR ADVOCATE AND us Amina Gee MD LAB BLOOD ORDERABLES F inal Result [facility] HISTORICAL RESULTS * PROCALCITONIN Post-antibiotic (05/22/2017 4:48 AM AN EMPLOYEE SPONSOR OR ADVOCATE AND) PROCALCITONIN Post-antibiotic 0.09 0.0 - 0.24 ng/mL 05/22/2017 5:38 AM AN EMPLOYEE SPONSOR OR ADVOCATE AND [facility] HISTORICAL RESULTS Comment: Guidelines for use with Community Acquired Pneumonia(CAP)- ONLY: ?? <0.1 mcg/L or decrease by >90% from initial: ?Cessation of antibiotics is STRONGLY encouraged ?? 0.1-0.24 mcg/L or decrease by >80% from initial: ?Cessation of antibiotics is encouraged ?? 0.25-0.5 mcg/L: Cessation of antibiotics is discouraged ?? >0.5 mcg/L: Cessation of antibiotics is STRONGLY ? discouraged 05/22/2017 4:48 AM AN EMPLOYEE SPONSOR OR ADVOCATE AND 05/22/2017 5:03 AM AN EMPLOYEE SPONSOR OR ADVOCATE AND Manpreet Hernandez MD LAB BLOOD ORDERABLES Final Result Performing Organization Address [facility]/ZIP Co de Phone Number [facility] HISTORICAL RESULTS * Phosphorus (05/22/2017 4:48 AM AN EMPLOYEE SPONSOR OR ADVOCATE AND) Phosphorus 2.8 2.5 - 4.5 mg/dL 05/22/2017 5:31 AM AN EMPLOYEE SPONSOR OR ADVOCATE AND [facility] HISTORICAL RESULTS 05/22/2017 4:48 AM AN EMPLOYEE SPONSOR OR ADVOCATE AND 05/22/2017 5:03 AM AN EMPLOYEE SPONSOR OR ADVOCATE AND Manpreet Hernandez MD LAB BLOOD ORDERABLES Final Result Performing Organization Address [facility]/State/ZIP Co de Phone Number [facility] HISTORICAL RESULTS * Magnesium (05/22/2017 4:48 AM AN EMPLOYEE SPONSOR OR ADVOCATE AND) Magnesium 1.9 1.6 - 2.6 mg/dL 05/22/2017 5:31 AM AN EMPLOYEE SPONSOR OR ADVOCATE AND [facility] HISTORICAL RESULTS Comment:Magnesium sulfate th erapy: 3.0-9.1 mg/dL 05/22/2017 4:48 AM AN EMPLOYEE SPONSOR OR ADVOCATE AND 05/22/2017 5:03 AM AN EMPLOYEE SPONSOR OR ADVOCATE AND us Manpreet Hernandez MD LAB BLOOD ORDERABLES Final Result [employer] HISTORICAL RESULTS * (ABNORMAL) CBC with auto differential (05/22/2017 4:48 AM AN EMPLOYEE SPONSOR OR ADVOCATE AND) WBC 9.8 4.6 - 10.2 x10 3/ul 05/22/2017 5:07 AM AN EMPLOYEE SPONSOR OR ADVOCATE AND [employer] HISTORICAL RESULTS RBC 5.39 4.11 - 5.71 x10 6/ul 05/22/2017 5:07 AM AN EMPLOYEE SPONSOR OR ADVOCATE AND [employer] HISTORICAL RESULTS Hemoglobin 16.3 13.0 - 17.0 g/dl 05/22/2017 5:07 AM AN EMPLOYEE SPONSOR OR ADVOCATE AND [employer] HISTORICAL RESULTS Hct 53.9(H) 38.2 - 48.5 % 05/22/2017 5:07 AM AN EMPLOYEE SPONSOR OR ADVOCATE AND [employer] HISTORICAL RESULTS MCV 100.0(H) 80.0 - 97.0 fl 05/22/2017 5:07 AM AN EMPLOYEE SPONSOR OR ADVOCATE AND [employer] HISTORICAL RESULTS MCH 30.2 27.0 - 31.2 pg 05/22/2017 5:07 AM AN EMPLOYEE SPONSOR OR ADVOCATE AND [employer] HISTORICAL RESULTS MCHC 30.2(L) 31.8 - 35.4 g/dl RDW 14.2 11.6 - 14.8 % 05/22/2017 5:07 AM AN EMPLOYEE SPONSOR OR ADVOCATE AND [employer] HISTORICAL RESULTS Plt Count 146 124 - 400 x10 3/ul 05/22/2017 5:07 AM AN EMPLOYEE SPONSOR OR ADVOCATE AND [employer] HISTORICAL RESULTS MPV 11.2(H) 7.4 - 10.4 fl 05/22/2017 5:07 AM AN EMPLOYEE SPONSOR OR ADVOCATE AND [employer] HISTORICAL RESULTS Neut % 66.2 37.0 - 85.0 % 05/22/2017 5:07 AM AN EMPLOYEE SPONSOR OR ADVOCATE AND [employer] HISTORICAL RESULTS Immature Gran % 0.4 0.0 - 3.0 % 05/22/2017 5:07 AM AN EMPLOYEE SPONSOR OR ADVOCATE AND [employer] HISTORICAL RESULTS Lymph % 19.7 5.0 - 45.0 % 05/22/2017 5:07 AM AN EMPLOYEE SPONSOR OR ADVOCATE AND [employer] HISTORICAL RESULTS [place] % 12.2 3.0 - 15.0 % Eos % 1.3 0.0 - 7.0 % Baso % 0.2 0.0 - 2.0 % Absolute Neuts (auto) 6.5 1.7 - 8.7 x10 3/ul Immature Gran # 0.0 0.0 - 0.3 x10 3/ul Absolute Lymphs (auto) 1.9 0.2 - 4.6 x10 3/ul Absolute Monos (auto) 1.2 0.1 - 1.5 x10 3/ul Absolute Eos (auto) 0.1 0.0 - 0.7 x10 3/ul Absolute Basos (auto) 0.0 0.0 - 0.2 x10 3/ul Nucleat RBC Rel Count 0.0 0 - 3 #/100WBC Absolute Nucleated RBC 0.00 x10 3/ul Absolute Neutrophils 6500 200 - 8000 /ul 05/22/2017 4:48 AM AN EMPLOYEE SPONSOR OR ADVOCATE AND 05/22/2017 5:03 AM [facility] us Manpreet Hernandez MD LAB BLOOD ORDERABLES Final Result [facility] HISTORICAL RESULTS * (ABNORMAL) Basic metabolic panel (05/22/2017 4:48 AM AN EMPLOYEE SPONSOR OR ADVOCATE AND) Sodium 139 135 - 145 mmol/L Potassium 4.3 3.3 - 5.1 mmol/L Chloride 94(L) 96 - 108 mmol/L Carbon Dioxide 42(H) 22 - 32 mmol/L Anion Gap 3(L) 7 - 16 Glucose 100 70 - 100 mg/dL BUN 22(H) 6 - 20 mg/dL Creatinine 0.6 0.5 - 1.3 mg/dL Comment: NOTE: Estimated GFR (Cockroft-Gault) will NOT be calculated unless patient Height and Weight were entered. Also, Kidney Disease Stage (GFR) and Estimated GFR (Cockroft-Gault) will NOT be calculated if Creatinine result is <0.2. Kidney Disease Stage > 90 mL/MIN Comment: NOTE; ??The GFR is an estimated [...] mL/min ? Kidney failure or on dialysis @ Est GFR (Cockcroft-G) 205 ml/MIN 05/22/2017 5:31 AM AN EMPLOYEE SPONSOR OR ADVOCATE AND [employer] HISTORICAL RESULTS Comment: Estimated GFR(Cockroft-Gault)is used to calculate patient medication dosage Calcium 8.1(L) 8.6 - 10.0 mg/dL 05/22/2017 5:31 AM AN EMPLOYEE SPONSOR OR ADVOCATE AND [facility] [employer] HISTORICAL RESULTS 05/22/2017 4:48 AM AN EMPLOYEE SPONSOR OR ADVOCATE AND 05/22/2017 5:03 AM AN EMPLOYEE SPONSOR OR ADVOCATE AND us Manpreet Hernandez MD LAB BLOOD ORDERABLES Final Result [facility] [employer] HISTORICAL RESULTS * CARDIOLOGY REPORT (05/22/2017 12:00 AM AN EMPLOYEE SPONSOR OR ADVOCATE AND) Anatomical Region Laterality Modality Other Narrative 05/22/2017 12:00 AM AN EMPLOYEE SPONSOR OR ADVOCATE AND Ordered by an unspecified provider. Historical Provider CV CARDIAC SERVICES [facility] JAYANT Final Result * Transthoracic Echo Complete W Doppler/CF (05/22/2017 12:00 AM AN EMPLOYEE SPONSOR OR ADVOCATE AND) Anatomical Region Laterality Modality Ultrasound 05/22/2017 Narrative 05/22/2017 12:39 PM AN EMPLOYEE SPONSOR OR ADVOCATE AND Results viewable in EMR, Cardiovascular [EOD] Procedure Note Provider, Richard, - 10/12/2020 Results viewable in EMR, Cardiovascular [EOD] us Symone Jiménez MD CV ECHO PROCEDUR ES Final Result * (ABNORMAL) Blood gas (includes COOX) (05/21/2017 5:47 PM AN EMPLOYEE SPONSOR OR ADVOCATE AND) Specimen Type ARTERIAL 05/21/2017 5:56 PM AN EMPLOYEE SPONSOR OR ADVOCATE AND [employer] HISTORICAL RESULTS Puncture Site RR 05/21/2017 5:56 PM AN EMPLOYEE SPONSOR OR ADVOCATE AND [employer] HISTORICAL RESULTS Patient Temperature 37.0 C 05/21 5:56 PM AN EMPLOYEE SPONSOR OR ADVOCATE AND [facility] [employer] HISTORICAL RESULTS pH 7.331(L) 7.350 - 7.450 05/21/2017 5:56 PM AN EMPLOYEE SPONSOR OR ADVOCATE AND [facility] [employer] HISTORICAL RESULTS pCO2 85.1(HH) 32.0 - 48.0 mmHg Comment: CRITICAL VALUE CALLED and REPEATED. ?? at:1756 05/21/17 by:Alexandro Rogel to:RN [id number] ?? pO2 86.5 80.0 - 110.0 mmHg HCO3 43.7(H) 22.0 - 26.0 mmol/L Total CO2 46.3(H) 20.0 - 30.0 mmol/L Base Excess 12.3(H) -2.0 - 2.0 mmol/L Hemoglobin 17.8(H) 13.8 - 17.2 g/dL O2 Saturation 94.0 90.0 - 95.0 % ABG Carboxyhemoglobin 1.5 <3.0 % 5:56 PM [facility] HISTORICAL RESULTS ABG Methemoglobin 0.7 <2.0 % 017 5:56 PM [facility] HISTORICAL RESULTS ABG O2 Content 23.5 17.6 - 24.3 Vol % A-a O2 Difference 289.9(H) <=10.0 017 5:56 PM [facility] HISTORICAL RESULTS a/A Ratio 0.2(L) >=0.8 O2 Delivery Device [employer] 2016 5:56 PM [facility] HISTORICAL RESULTS Liter Flow 12.0 FiO2 68.0 % Mode BiPAP 20/10 BG Specimen Comment [id number] 05/21 5:56 PM AN EMPLOYEE SPONSOR OR ADVOCATE AND [facility] HISTORICAL RESULTS Bedspread Inspector ID [id number] INTERNSHIP 05/21/2017 5:56 PM AN EMPLOYEE SPONSOR OR ADVOCATE AND [facility] HISTORICAL RESULTS 05/21/2017 5:47 PM AN EMPLOYEE SPONSOR OR ADVOCATE AND 05/21/2017 5:50 PM AN EMPLOYEE SPONSOR OR ADVOCATE AND Narrative [facility] HISTORICAL RESULTS - 05/21/2017 5:56 PM AN EMPLOYEE SPONSOR OR ADVOCATE AND Conditions Unspecified ?? Source Arterial us Symone Jiménez MD LAB BLOOD ORDERA BLES Final Result Performing Organization Address [facility]/State/ZIP Co de Phone Number [facility] HISTORICAL RESULTS * Strep pneumoniae antigen, urine (05/21/2017 3:00 PM AN EMPLOYEE SPONSOR OR ADVOCATE AND) Ur Strep pneumoniae Ag NEGATIVE NEGATIVE 05/21/2017 3:33 PM AN EMPLOYEE SPONSOR OR ADVOCATE AND [facility] HISTORICAL RESULTS 05/21/2017 3:00 PM AN EMPLOYEE SPONSOR OR ADVOCATE AND 05/21/2017 3:12 PM AN EMPLOYEE SPONSOR OR ADVOCATE AND Narrative [facility] HISTORICAL RESULTS - 05/21/2017 3:33 PM AN EMPLOYEE SPONSOR OR ADVOCATE AND Collected By kb ?? Urine collection method Clean catch us Amina Gee MD LAB MICROBIOLOGY - GEN ERAL ORDERABLES Final Result Performing Organization Address [facility]/ZIP Co de Phone Number [facility] HISTORICAL RESULTS * Legionella pneumophilia antigen, urine (05/21/2017 3:00 PM AN EMPLOYEE SPONSOR OR ADVOCATE AND) URINE LEGIONELLA PNEUMO AG Negative Negative 05/24/2017 12:34 AM AN EMPLOYEE SPONSOR OR ADVOCATE AND [facility] HISTORICAL RESULTS Comment: Sample is negative for the presence of L. pneumophila ?? serogroup 1 antigen in urine, suggesting no recent or ?? current infection. Legionnaires' Disease cannot be ruled ?? out since other serogroups and species may also cause ?? disease. ?? INTERPRETIVE INFORMATION: Legionella pneumophila Antigen, ?? Urine ?? This assay detects Legionella pneumophila serogroup one (1) ?? antigen. ?? Performed by [facility], ?? [address], [facility] [place] [id number] ?? [email or web address], Luiz Andrea MD, Lab. Director ?? 05/21/2017 3:00 PM AN EMPLOYEE SPONSOR OR ADVOCATE AND 05/21/2017 3:12 PM AN EMPLOYEE SPONSOR OR ADVOCATE AND Narrative [facility] HISTORICAL RESULTS - 05/24/2017 12:34 AM AN EMPLOYEE SPONSOR OR ADVOCATE AND Collected By:cathy ?? Urine collection method Clean catch Amina Gee MD LAB MICROBIOLOGY - GEN ERAL ORDERABLES Final Result Performing Organization Address [facility] Phone Number [facility] HISTORICAL RESULTS * TSH (05/21/2017 5:07 AM AN EMPLOYEE SPONSOR OR ADVOCATE AND) TSH 2.44 0.27 - 4.20 uIU/mL 05/21/2017 6:02 AM AN EMPLOYEE SPONSOR OR ADVOCATE AND [facility] HISTORICAL RESULTS 05/21/2017 5:07 AM AN EMPLOYEE SPONSOR OR ADVOCATE AND 05/21/2017 5:27 AM AN EMPLOYEE SPONSOR OR ADVOCATE AND Jose Manuel Anthony MD LAB BLOOD ORDERABLES Lizzy l Result Performing Organization Address [facility] Phone Number [facility] HISTORICAL RESULTS * T4, free (05/21/2017 5:07 AM AN EMPLOYEE SPONSOR OR ADVOCATE AND) Free T4 0.96 0.93 - 1.70 ng/dL 05/21/2017 6:02 AM AN EMPLOYEE SPONSOR OR ADVOCATE AND [facility] HISTORICAL RESULTS 05/21/2017 5:07 AM AN EMPLOYEE SPONSOR OR ADVOCATE AND 05/21/2017 5:27 AM AN EMPLOYEE SPONSOR OR ADVOCATE AND Jose Manuel Anthony MD LAB BLOOD ORDERABLES Lizzy l Result Performing Organization Address [facility] de Phone Number [facility] HISTORICAL RESULTS * (ABNORMAL) Erythrocyte sedimentation rate (05/21/2017 5:07 AM AN EMPLOYEE SPONSOR OR ADVOCATE AND) ESR 45(H) 0 - 10 mm/hr 05/21/2017 5:54 AM AN EMPLOYEE SPONSOR OR ADVOCATE AND [facility] HISTORICAL RESULTS 05/21/2017 5:07 AM AN EMPLOYEE SPONSOR OR ADVOCATE AND 05/21/2017 5:27 AM AN EMPLOYEE SPONSOR OR ADVOCATE AND Jose Manuel Anthony MD LAB BLOOD ORDERABLES Lizzy l Result [facility] HISTORICAL RESULTS * Phosphorus (05/21/2017 5:07 AM AN EMPLOYEE SPONSOR OR ADVOCATE AND) Pathologist [facility] Phosphorus 3.8 2.5 - 4.5 mg/dL 05/21/2017 6:17 AM AN EMPLOYEE SPONSOR OR ADVOCATE AND [facility] HISTORICAL RESULTS 05/21/2017 5:07 AM AN EMPLOYEE SPONSOR OR ADVOCATE AND 05/21/2017 5:27 AM AN EMPLOYEE SPONSOR OR ADVOCATE AND Jose Manuel Anthony MD LAB BLOOD ORDERABLES Lizzy l Result Performing Organization Address [facility] Co de Phone Number [facility] HISTORICAL RESULTS * Magnesium (05/21/2017 5:07 AM AN EMPLOYEE SPONSOR OR ADVOCATE AND) Pathologist [facility] Magnesium 1.9 1.6 - 2.6 mg/dL Comment:Magnesium sulfate th erapy: 3.0-9.1 mg/dL 05/21/2017 5:07 AM AN EMPLOYEE SPONSOR OR ADVOCATE AND 05/21/2017 5:27 AM AN EMPLOYEE SPONSOR OR ADVOCATE AND Jose Manuel Anthony MD LAB BLOOD ORDERABLES Lizzy l Result Performing Organization Address [facility] de Phone Number [facility] HISTORICAL RESULTS * (ABNORMAL) CBC with auto differential (05/21/2017 5:07 AM AN EMPLOYEE SPONSOR OR ADVOCATE AND) Pathologist [facility] WBC 8.9 4.6 - 10.2 x10 3/ul 05/21/2017 5:32 AM [facility] RBC 5.60 4.11 - 5.71 x10 6/ul Hemoglobin 16.8 13.0 - 17.0 g/dl Hct 57.3(H) 38.2 - 48.5 % MCV 102.3(H) 80.0 - 97.0 fl 05/21/2017 5:32 AM [facility] [employer] HISTORICAL RESULTS MCH 30.0 27.0 - 31.2 pg 05/21/2017 5:32 AM [employer] [facility] [employer] HISTORICAL RESULTS MCHC 29.3(L) 31.8 - 35.4 g/dl 05/21/2017 5:32 AM [employer] [facility] [employer] HISTORICAL RESULTS RDW 14.3 11.6 - 14.8 % 05/21/2017 5:32 AM [employer] [facility] [employer] HISTORICAL RESULTS Plt Count 144 124 - 400 x10 3/ul MPV 11.1(H) 7.4 - 10.4 fl Neut % 65.3 37.0 - 85.0 % Immature Gran % 0.3 0.0 - 3.0 % Lymph % 22.5 5.0 - 45.0 % [place] % 10.6 3.0 - 15.0 % Eos % 1.2 0.0 - 7.0 % Baso % 0.1 0.0 - 2.0 % 05/21/2017 5:32 AM [employer] [facility] [employer] HISTORICAL RESULTS Absolute Neuts (auto) 5.8 1.7 - 8.7 x10 3/ul Immature Gran # 0.0 0.0 - 0.3 x10 3/ul Absolute Lymphs (auto) 2.0 0.2 - 4.6 x10 3/ul 05/21/2017 5:32 AM [employer] [facility] [employer] HISTORICAL RESULTS Absolute Monos (auto) 0.9 0.1 - 1.5 x10 3/ul Absolute Eos (auto) 0.1 0.0 - 0.7 x10 3/ul Absolute Basos (auto) 0.0 0.0 - 0.2 x10 3/ul Nucleat RBC Rel Count 0.0 0 - 3 #/100WBC Absolute Nucleated RBC 0.00 x10 3/ul Absolute Neutrophils 5800 200 - 8000 /ul 05/21/2017 5:07 AM AN EMPLOYEE SPONSOR OR ADVOCATE AND 05/21/2017 5:27 AM AN EMPLOYEE SPONSOR OR ADVOCATE AND Jose Manuel Anthony MD LAB BLOOD ORDERABLES Lizzy l Result Performing Organization Address [facility] Co de Phone Number [facility] HISTORICAL RESULTS * (ABNORMAL) CRP (acute phase) (05/21/2017 5:07 AM AN EMPLOYEE SPONSOR OR ADVOCATE AND) C-Reactive Protein 24.9(H) 0.0 - 4.9 mg/L 05/21/2017 5:07 AM AN EMPLOYEE SPONSOR OR ADVOCATE AND 05/21/2017 5:27 AM AN EMPLOYEE SPONSOR OR ADVOCATE AND us Jose Manuel Anthony MD LAB BLOOD ORDERABLES Lizzy l Result Performing Organization Address [facility] Co de Phone Number [facility] HISTORICAL RESULTS * B-type natriuretic peptide (05/21/2017 5:07 AM AN EMPLOYEE SPONSOR OR ADVOCATE AND) B-Natriuretic Peptide 21 0 - 100 pg/mL 05/21/2017 5:58 AM AN EMPLOYEE SPONSOR OR ADVOCATE AND [facility] HISTORICAL RESULTS Comment: B Natriutetic Peptide METHOD: ??Siemens Centaur XP using [place]. Decision threshold of 100 pg/mL has been demonstrated to provide the maximal combination of sensitivity, specificity, and predictive value for the diagnosis of congestive heart failure (CHF). ??Virtually all patients with no evidence of CHF have BNP values <100 pg/mL. ?? NOTE: ??Nesiritide (Natrecor) interferes with the BNP assay. BNP result will be invalid if drawn within 2 hours of bolus or infusion of nesiritide. 05/21/2017 5:07 AM AN EMPLOYEE SPONSOR OR ADVOCATE AND 05/21/2017 5:27 AM AN EMPLOYEE SPONSOR OR ADVOCATE AND Jose Manuel Anthony MD LAB BLOOD ORDERABLES Lizzy l Result Performing Organization Address [facility] Co de Phone Number [facility] HISTORICAL RESULTS * (ABNORMAL) Hemoglobin A1c (05/21/2017 5:07 AM AN EMPLOYEE SPONSOR OR ADVOCATE AND) Pathologist [facility] Hemoglobin A1c % 6.0(H) 4.8 - 5.9 % 05/21/2017 5:41 AM [facility] [employer] HISTORICAL RESULTS Comment: [place] [employer] recommends that the goal of therapy should be an A1C hemoglobin of <7%. Reevaluate the treatment regimen in patients with an A1C >8%. 05/21/2017 5:07 AM AN EMPLOYEE SPONSOR OR ADVOCATE AND 05/21/2017 5:27 AM AN EMPLOYEE SPONSOR OR ADVOCATE AND Jose Manuel Anthony MD LAB BLOOD ORDERABLES Lizzy l Result Performing Organization Address [facility] de Phone Number [facility] HISTORICAL RESULTS * (ABNORMAL) BLOOD GAS w/LYTES & LACTATE (05/21/2017 5:00 AM AN EMPLOYEE SPONSOR OR ADVOCATE AND) [facility] Specimen Type ARTERIAL 05/21/2017 5:47 AM [facility] [employer] HISTORICAL RESULTS Puncture Site RR 05/21/2017 5:47 AM [facility] Patient Temperature 37.0 C 05/21 5:47 AM [facility] pH 7.285(LL) 7.350 - 7.450 05/21/2017 5:47 AM [facility] Comment: CRITICAL VALUE CALLED and REPEATED. ?? at:0546 05/21/17 by:Aleyda García to:ROSALVA KNIGHT RN ?? pCO2 94.4(HH) 32.0 - 48.0 mmHg 05/21/2017 5:47 AM [facility] [employer] [facility] HISTORICAL RESULTS Comment: CRITICAL VALUE CALLED and REPEATED. ?? at:0547 05/21/17 by:Aleyda García to:ROSALVA KNIGHT RN ?? pO2 110.0 80.0 - 110.0 mmHg HCO3 43.5(H) 22.0 - 26.0 mmol/L Total CO2 46.4(H) 20.0 - 30.0 mmol/L Base Excess 11.1(H) -2.0 - 2.0 mmol/L Hemoglobin 17.3(H) 13.8 - 17.2 g/dL O2 Saturation 95.7(H) 90.0 - 95.0 % ABG Carboxyhemoglobin 1.6 <3.0 % ABG Methemoglobin 0.6 <2.0 % 017 5:47 AM [facility] HISTORICAL RESULTS ABG O2 Content 23.3 17.6 - 24.3 Vol % Na+ (BLOOD GAS) 138 135 - 145 mmol/L K+ (BLOOD GAS) 4.5 3.3 - 4.9 mmol/L CA++ (ionized) BLOOD GAS 1.20 1.13 - 1.28 mmol/L GLUCOSE (BLOOD GAS) 100 65 - 199 mg/dL Lactate (BLOOD GAS) 0.8 0.5 - 2.0 mEq/L A-a O2 Difference 196.8(H) <=10.0 12/25/2 017 5:47 AM [facility] HISTORICAL RESULTS a/A Ratio 0.4(L) >=0.8 O2 Delivery Device BIPAP 2016 5:47 AM [facility] HISTORICAL RESULTS FiO2 60.0 % Mechanical Rate 28 7 5:47 AM AN EMPLOYEE SPONSOR OR ADVOCATE AND [facility] HISTORICAL RESULTS Mode BiPAP 20/10 BG Specimen Comment ICU 9 05/21 5:47 AM [facility] HISTORICAL RESULTS Bedspread Inspector ID [id number] BLOOD GAS COMMENTS Sample Iced 05/21/2017 5:00 AM AN EMPLOYEE SPONSOR OR ADVOCATE AND 05/21/2017 5:05 AM [facility] Narrative [facility] HISTORICAL RESULTS - 05/21/2017 5:47 AM AN EMPLOYEE SPONSOR OR ADVOCATE AND Conditions BIPAP ?? Source Arterial us Manpreet Hernandez MD LAB BLOOD ORDERABLES Final Result [facility] HISTORICAL RESULTS * (ABNORMAL) Blood gas (includes COOX) (05/20/2017 4:08 AM AN EMPLOYEE SPONSOR OR ADVOCATE AND) Specimen Type ARTERIAL Puncture Site RB Patient Temperature 37.0 C 05/20 4:14 AM [facility] HISTORICAL RESULTS pH 7.309(L) 7.350 - 7.450 pCO2 86.4(HH) 32.0 - 48.0 mmHg Comment: CRITICAL VALUE CALLED and REPEATED. ?? at:0414 05/20/17 by:Aleyda García to:NITHYA BRANDT RN ?? pO2 62.5(L) 80.0 - 110.0 mmHg HCO3 42.1(H) 22.0 - 26.0 mmol/L Total CO2 44.8(H) 20.0 - 30.0 mmol/L Base Excess 10.4(H) -2.0 - 2.0 mmol/L Hemoglobin 18.3(H) 13.8 - 17.2 g/dL O2 Saturation 87.3(L) 90.0 - 95.0 % ABG Carboxyhemoglobin 1.6 <3.0 % 4:14 AM [facility] HISTORICAL RESULTS ABG Methemoglobin 0.8 <2.0 % 017 4:14 AM [facility] HISTORICAL RESULTS ABG O2 Content 22.4 17.6 - 24.3 Vol % A-a O2 Difference 181.0(H) <=10.0 017 4:14 AM [facility] HISTORICAL RESULTS a/A Ratio 0.3(L) >=0.8 O2 Delivery Device BIPAP 2016 4:14 AM [facility] HISTORICAL RESULTS FiO2 50.0 % Mechanical Rate 24 7 4:14 AM [facility] HISTORICAL RESULTS Mode BiPAP 20/10 BG Specimen Comment ICU 9 05/20 4:14 AM [facility] HISTORICAL RESULTS Bedspread Inspector ID [id number] 05/20/2017 4:08 AM [facility] 05/20/2017 4:12 AM [facility] HISTORICAL RESULTS - 05/20/2017 4:14 AM AN EMPLOYEE SPONSOR OR ADVOCATE AND Conditions BIPAP ?? Source Arterial Marino Giraldo LAB BLOOD ORDERABLES Final R esult [facility] [employer] HISTORICAL RESULTS * MRSA PCR, surveillance (05/20/2017 2:20 AM AN EMPLOYEE SPONSOR OR ADVOCATE AND) MRSA Surveill Initial MRSA NEGATIVE NEGATIVE 05/20/2017 4:19 AM AN EMPLOYEE SPONSOR OR ADVOCATE AND [employer] HISTORICAL RESULTS Comment:MRSA target DNA sequ ences are not detected. 05/20/2017 2:20 AM AN EMPLOYEE SPONSOR OR ADVOCATE AND 05/20/2017 3:10 AM AN EMPLOYEE SPONSOR OR ADVOCATE AND [employer] HISTORICAL RESULTS - 05/20/2017 4:19 AM AN EMPLOYEE SPONSOR OR ADVOCATE AND Collected By us Marino Giraldo LAB MICROBIOLOGY - GENERAL O RDERABLES Final Result Performing Organization Address City/[facility]/ZIP Co de Phone Number [facility] [employer] HISTORICAL RESULTS * (ABNORMAL) Blood gas (includes COOX) (05/20/2017 12:55 AM AN EMPLOYEE SPONSOR OR ADVOCATE AND) Specimen Type ARTERIAL 05/20/2017 1:06 AM AN EMPLOYEE SPONSOR OR ADVOCATE AND [employer] HISTORICAL RESULTS Puncture Site RR 05/20/2017 1:06 AM [facility] [employer] HISTORICAL RESULTS Patient Temperature 37.0 C 05/20 1:06 AM AN EMPLOYEE SPONSOR OR ADVOCATE AND [employer] HISTORICAL RESULTS pH 7.173(LL) 7.350 - 7.450 pCO2 120.0(HH) 32.0 - 48.0 mmHg 05/20/2017 1:06 AM AN EMPLOYEE SPONSOR OR ADVOCATE AND [employer] HISTORICAL RESULTS pO2 157.0(H) 80.0 - 110.0 mmHg HCO3 42.2(H) 22.0 - 26.0 mmol/L 05/20/2017 1:06 AM AN EMPLOYEE SPONSOR OR ADVOCATE AND [employer] HISTORICAL RESULTS Total CO2 45.9(H) 20.0 - 30.0 mmol/L Base Excess 6.1(H) -2.0 - 2.0 mmol/L Hemoglobin 18.4(H) 13.8 - 17.2 g/dL O2 Saturation 95.8(H) 90.0 - 95.0 % 05/20/2017 1:06 AM AN EMPLOYEE SPONSOR OR ADVOCATE AND [facility] HISTORICAL RESULTS ABG Carboxyhemoglobin 1.6 <3.0 % 05/20/2017 1:06 AM AN EMPLOYEE SPONSOR OR ADVOCATE AND [facility] HISTORICAL RESULTS ABG Methemoglobin 0.9 <2.0 % 017 1:06 AM AN EMPLOYEE SPONSOR OR ADVOCATE AND [facility] HISTORICAL RESULTS ABG O2 Content 25.0(H) 17.6 - 24.3 Vol % A-a O2 Difference 397.0(H) <=10.0 017 1:06 AM [facility] HISTORICAL RESULTS a/A Ratio 0.3(L) >=0.8 05/20/2017 1:06 AM AN EMPLOYEE SPONSOR OR ADVOCATE AND [facility] HISTORICAL RESULTS O2 Delivery Device BIPAP 2016 1:06 AM AN EMPLOYEE SPONSOR OR ADVOCATE AND [facility] HISTORICAL RESULTS FiO2 100.0 % Mechanical Rate 16 7 1:06 AM AN EMPLOYEE SPONSOR OR ADVOCATE AND [facility] HISTORICAL RESULTS Mode BiPAP 15/7 BG Specimen Comment [id number] 05/20 1:06 AM [facility] HISTORICAL RESULTS Bedspread Inspector ID DF 05/20/2017 12:5 5 AM AN EMPLOYEE SPONSOR OR ADVOCATE AND 05/20/2017 1:01 AM [facility] Narrative [facility] HISTORICAL RESULTS - 05/20/2017 1:06 AM AN EMPLOYEE SPONSOR OR ADVOCATE AND Conditions Oxygen ?? Source Arterial ?? us Marcelo Winters II, MD LAB BLOOD ORDERABLES Lizzy ortiz Result [facility] HISTORICAL RESULTS * CTA Chest W IV Contrast - PE (05/20/2017 12:00 AM AN EMPLOYEE SPONSOR OR ADVOCATE AND) Anatomical Region Laterality Modality Body N/A Computed Tomogra phy 05/20/2017 Impressions 05/20/2017 12:47 AM AN EMPLOYEE SPONSOR OR ADVOCATE AND ?? 1. ??No PE. 2. ??Patchy areas of dense bibasilar consolidation nonspecific for edema versus pneumonia. Automated exposure control was used as a dose optimization technique for this examination. THIS IS AN ELECTRONICALLY VERIFIED REPORT 05/20/2017 12:43 AM: ??Rigoberto Martin M.D. ?? Rigoberto Martin M.D. AR:lizzy 12:43 AM 12:43 AM RYN [EOD] Narrative 05/20/2017 12:47 AM AN EMPLOYEE SPONSOR OR ADVOCATE AND EXAMINATION: ??CT chest with contrast HISTORY: ??Pedal edema, shortness of breath, dizziness x2 weeks COMPARISON: ??12/01/2015 TECHNIQUE: ??80 mL Optiray 350 were administered via the right antecubital IV and CT sections were obtained through the chest in the pulmonary arterial phase. ??MIP reconstructions are provided by the technologist FINDINGS: ??Bolus timing is borderline but no large/central filling defect is seen. ??Heart size mildly enlarged. ??Systemic arterial structures are partially opacified and reveal no acute abnormality. ??Patchy areas of dense bibasilar consolidation. ??Upper lungs are clear. ??Trachea and major airways are patent. ?? No effusion. ??No acute upper abdominal abnormality. ??No acute osseous abnormality. Procedure Note Provider, MD Richard - 10/12/2020 EXAMINATION: CT chest with contrast HISTORY: Pedal edema, shortness of breath, dizziness x2 weeks COMPARISON: 12/01/2015 TECHNIQUE: 80 mL Optiray 350 were administered via the right antecubitalIV and CT sections were obtained through the chest in the pulmonary arterial phase. MIP reconstructions are provided by the technologist FINDINGS: Bolus timing is borderline but no large/central filling defectis seen. Heart size mildly enlarged. Systemic arterial structures arepartially opacified and reveal no acute abnormality. Patchy areas of densebibasilar consolidation. Upper lungs are clear. Trachea and major airways arepatent. No effusion. No acute upper abdominal abnormality. No acute osseous abnormality. IMPRESSION: 1. No PE. 2. Patchy areas of dense bibasilar consolidation nonspecific for edemaversus pneumonia. Automated exposure control was used as a dose optimization technique forthis examination. THIS IS AN ELECTRONICALLY VERIFIED REPORT 05/20/2017 12:43 AM: Rigoberto Martin M.D. Rigoberto Martin M.D. AR:lizzy 12:43 AM 12:43 AM RYN [EOD] Amina Gee MD IMG CT PROCEDURES Lizzy l Result * XR Chest 1 View (05/20/2017 12:00 AM AN EMPLOYEE SPONSOR OR ADVOCATE AND) Anatomical Region Laterality Modality Body, Chest N/A Radiographic Wendy ging 05/20/2017 Impressions 05/20/2017 10:56 AM AN EMPLOYEE SPONSOR OR ADVOCATE AND ?? 1. ??Unchanged bibasilar opacities, combination of atelectasis and/or pneumonia. 2. ??Mild pulmonary vascular congestion with stable cardiomegaly. THIS IS AN ELECTRONICALLY VERIFIED REPORT 05/20/2017 10:53 AM: ??Rosas Leung M.D. ?? Rosas Leung M.D. NUBIA:nubia 10:53 AM 10:53 AM BM [EOD] Narrative 05/20/2017 10:56 AM AN EMPLOYEE SPONSOR OR ADVOCATE AND EXAMINATION: ??Single frontal view of the chest. HISTORY: ??ER/ admitted 05/19 with bilateral pedal edema, sob, dizziness, and some hallucinations; hx of HTN, HLD, DM, AFib, COPD, obstructive sleep apnea, CHF, and PNA. ?? TECHNIQUE: ??Single frontal view of the chest. ??Comparison: Chest radiograph from previous day FINDINGS: ?? Extensive bibasilar opacities are similar to yesterday's exam. ??The enlarged heart is unchanged. ??There is persistent mildly increased pulmonary vascular prominence with cephalization. ??No pneumothorax. ??No definite pleural effusion. Procedure Note Provider, Richard, - 10/12/2020 EXAMINATION: Single frontal view of the chest. HISTORY: ER/ admitted 05/19 with bilateral pedal edema, sob, dizziness,and some hallucinations; hx of HTN, HLD, DM, AFib, COPD, obstructive sleepapnea, CHF, and PNA. TECHNIQUE: Single frontal view of the chest. Comparison: Chestradiograph from previous day FINDINGS: Extensive bibasilar opacities are similar to yesterday's exam. Theenlarged heart is unchanged. There is persistent mildly increased pulmonaryvascular prominence with cephalization. No pneumothorax. No definite pleuraleffusion. IMPRESSION: 1. Unchanged bibasilar opacities, combination of atelectasis and/orpneumonia. 2. Mild pulmonary vascular congestion with stable cardiomegaly. THIS IS AN ELECTRONICALLY VERIFIED REPORT 05/20/2017 10:53 AM: Rosas Leung M.D. Rosas Leung M.D. NUBIA:nubia 10:53 AM 10:53 AM [facility] [EOD] Marino Giraldo IMG XR PROCEDURES Final Resu lt * (ABNORMAL) Digoxin level (05/19/2017 9:19 PM AN EMPLOYEE SPONSOR OR ADVOCATE AND) Digoxin < 0.4(L) 0.6 - 1.2 ng/mL 05/19/2017 11:33 PM AN EMPLOYEE SPONSOR OR ADVOCATE AND [facility] HISTORICAL RESULTS 05/19/2017 9:19 PM AN EMPLOYEE SPONSOR OR ADVOCATE AND 05/19/2017 9:23 PM AN EMPLOYEE SPONSOR OR ADVOCATE AND Marcelo Winters II, MD LAB BLOOD ORDERABLES Lizzy l Result [facility] HISTORICAL RESULTS * PROCALCITONIN Pre-antibiotic (05/19/2017 9:19 PM AN EMPLOYEE SPONSOR OR ADVOCATE AND) Procalcitonin 0.10 0.0 - 0.24 ng/mL Comment: Guidelines for use with Community Acquired Pneumonia(CAP)-ONLY: ?? <0.1 mcg/L: Use of antibiotics is STRONGLY discouraged ?? 0.1-0.24 mcg/L: Use of antibiotics is discouraged ?? 0.25-0.5 mcg/L: Use of antibiotics is encouraged ?? >0.5 mcg/L: Use of antibiotics is STRONGLY encouraged Recommend repeating every 2-3 days if initial PCT >0.24 05/19/2017 9:19 PM AN EMPLOYEE SPONSOR OR ADVOCATE AND 05/19/2017 9:23 PM AN EMPLOYEE SPONSOR OR ADVOCATE AND Marcelo Winters II, MD LAB BLOOD ORDERABLES Lizzy l Result [facility] HISTORICAL RESULTS * TNI with LIPID PANEL (05/19/2017 9:19 PM AN EMPLOYEE SPONSOR OR ADVOCATE AND) Pathologist [facility] Troponin I < 0.300 0.000 - 0.300 ng/mL Comment: Reference using AMBIKA Chemiluminescence ? Negative: Repeat in 4-6 hours as indicated. Triglycerides 101 0 - 199 mg/dL Comment:12 hr pc highly graeme mmended for Triglyceride Cholesterol 151 0 - 199 mg/dL Comment: Borderline: ??200-239 High Risk: ?? >239 HDL Cholesterol 33 mg/dL 7 9:48 PM [facility] HISTORICAL RESULTS Comment: New methodology in use 05-08-17; Results may run slightly lower than previous. Reference Range: Major Risk ?< 40 mg/dL Moderate Risk ?40-60 mg/dL Negative Risk ?? > 60 mg/dL LDL Cholesterol, Calc 98 0 - 130 mg/dL Comment:High Risk > 159 mg/d L Cholesterol/HDL Ratio 4.6 Comment: Cholesterol / HDL Ratio 3.5:1 or less is desirable. Cholesterol / HDL Ratio greater than 5:1 is considered higher risk for developing heart disease. 05/19/2017 9:19 PM AN EMPLOYEE SPONSOR OR ADVOCATE AND 05/19/2017 9:23 PM AN EMPLOYEE SPONSOR OR ADVOCATE AND Marcelo Winters II, MD LAB BLOOD ORDERABLES Lizzy l Result Performing Organization Address [facility] de Phone Number [facility] HISTORICAL RESULTS * Protime-INR (05/19/2017 9:19 PM AN EMPLOYEE SPONSOR OR ADVOCATE AND) PT 13.2 11.8 - 14.5 SECONDS INR 1.01 0.01 - 5.99 Comment: Recommended Therapeutic range for Oral Anticoagulant Therapy No anti-coagulation therapy ? Normal Range: ?0.8-1.4 Anti-coagulation therapy ? Low intensity therapy ?2.0-3.0 ? High intensity therapy ?? 2.5-3.5 Critical Value ? Greater than or equal to 6.0 Patients should be monitored for serious bleeding. ?? 05/19/2017 9:19 PM AN EMPLOYEE SPONSOR OR ADVOCATE AND 05/19/2017 9:23 PM AN EMPLOYEE SPONSOR OR ADVOCATE AND us Marcelo Winters II, MD LAB BLOOD ORDERABLES Lizzy l Result Performing Organization Address [facility] Phone Number [facility] HISTORICAL RESULTS * (ABNORMAL) aPTT (05/19/2017 9:19 PM AN EMPLOYEE SPONSOR OR ADVOCATE AND) Pathologist [facility] APTT 35(H) 26 - 33 SECONDS 05/19/2017 9:38 PM AN EMPLOYEE SPONSOR OR ADVOCATE AND [facility] HISTORICAL RESULTS 05/19/2017 9:19 PM AN EMPLOYEE SPONSOR OR ADVOCATE AND 05/19/2017 9:23 PM AN EMPLOYEE SPONSOR OR ADVOCATE AND Marcelo Winters II, MD LAB BLOOD ORDERABLES Lizzy l Result Performing Organization Address [facility] de [facility] Number [facility] HISTORICAL RESULTS * Lactate (05/19/2017 9:19 PM AN EMPLOYEE SPONSOR OR ADVOCATE AND) [facility] L-Lactate 0.8 mmol/L 05/19/2017 9:49 PM AN EMPLOYEE SPONSOR OR ADVOCATE AND [facility] HISTORICAL RESULTS Comment:Lactate Reference Ra nge: 0.5 - 2.2 mmol/L 05/19/2017 9:19 PM AN EMPLOYEE SPONSOR OR ADVOCATE AND 05/19/2017 9:23 PM AN EMPLOYEE SPONSOR OR ADVOCATE AND Marcelo Winters II, MD LAB BLOOD ORDERABLES Lizzy l Result Performing Organization Address [facility] Number [facility] HISTORICAL RESULTS * (ABNORMAL) D-dimer, quantitative (05/19/2017 9:19 PM AN EMPLOYEE SPONSOR OR ADVOCATE AND) [facility] D-Dimer, Quantitative 0.52(H) 0.00 - 0.50 FEUug/ml 05/19/2017 9:36 PM AN EMPLOYEE SPONSOR OR ADVOCATE AND [facility] HISTORICAL RESULTS Comment: Studies indicate that a D-Dimer level of <0.50 FEUug/ml has a >95% negative predictive value for DVT,DIC,PE and other embolus conditions. ??Levels >0.50 FEUug/ml may be present in a wide variety of conditions and should not be considered diagnostic of any disease state. 05/19/2017 9:19 PM AN EMPLOYEE SPONSOR OR ADVOCATE AND 05/19/2017 9:23 PM AN EMPLOYEE SPONSOR OR ADVOCATE AND us Marcelo Winters II, MD LAB BLOOD ORDERABLES Lizzy l Result Performing Organization Address [facility] Co de Phone Number [facility] HISTORICAL RESULTS * (ABNORMAL) Comprehensive metabolic panel (05/19/2017 9:19 PM AN EMPLOYEE SPONSOR OR ADVOCATE AND) [facility] Sodium 142 135 - 145 mmol/L Potassium 4.3 3.3 - 5.1 mmol/L Chloride 97 96 - 108 mmol/L Carbon Dioxide 38(H) 22 - 32 mmol/L Anion Gap 7 7 - 16 Glucose 107(H) 70 - 100 mg/dL BUN 16 6 - 20 mg/dL Creatinine 0.7 0.5 - 1.3 mg/dL Comment: NOTE: Estimated GFR (C[place]roft-Gault) will NOT be calculated unless patient Height and Weight were entered. Also, Kidney Disease Stage (GFR) and Estimated GFR ([place]roft-Gault) will NOT be calculated if Creatinine result is <0.2. Kidney Disease Stage > 90 mL/MIN Comment: NOTE; ??The GFR is an estimated [...] mL/min ? Kidney failure or on dialysis @ Calcium 8.4(L) 8.6 - 10.0 mg/dL Total Protein 7.2 6.4 - 8.3 g/dL 05/19/2017 9:48 PM AN EMPLOYEE SPONSOR OR [employer] AND [facility] HISTORICAL RESULTS Albumin 3.4(L) 3.5 - 5.2 g/dL Globulin 3.8(H) 2.3 - 3.5 gm/dL 05/19/2017 9:48 PM AN EMPLOYEE SPONSOR OR [employer] AND [facility] HISTORICAL RESULTS Albumin/Globulin Ratio 0.9(L) 1.1 - 1.8 05/19/2017 9:48 PM AN EMPLOYEE SPONSOR OR [employer] AND [facility] HISTORICAL RESULTS Total Bilirubin 0.5 0.0 - 1.2 mg/dL 05/19/2017 9:48 PM AN EMPLOYEE SPONSOR OR [employer] AND [facility] HISTORICAL RESULTS AST 20 0 - 40 U/L ALT 13 0 - 41 U/L Alkaline Phosphatase 79 40 - 129 U/L 05/19/2017 9:19 PM AN EMPLOYEE SPONSOR OR ADVOCATE AND 05/19/2017 9:23 PM AN EMPLOYEE SPONSOR OR ADVOCATE AND us Marcelo Winters II, MD LAB BLOOD ORDERABLES Lizzy l Result [facility] HISTORICAL RESULTS * (ABNORMAL) CBC with auto differential (05/19/2017 9:19 PM AN EMPLOYEE SPONSOR OR [employer]VOCATE AND) WBC 10.2 4.6 - 10.2 x10 3/ul 05/19/2017 9:25 PM AN EMPLOYEE SPONSOR OR [employer]ATE AND [facility] HISTORICAL RESULTS RBC 5.78(H) 4.11 - 5.71 x10 6/ul Hemoglobin 17.8(H) 13.0 - 17.0 g/dl Hct 57.4(H) 38.2 - 48.5 % 05/19/2017 9:26 PM AN EMPLOYEE SPONSOR OR [employer] AND [facility] HISTORICAL RESULTS MCV 99.3(H) 80.0 - 97.0 fl 05/19/2017 9:25 PM AN EMPLOYEE SPONSOR OR [employer]ATE AND [facility] HISTORICAL RESULTS MCH 30.8 27.0 - 31.2 pg 05/19/2017 9:25 PM AN EMPLOYEE SPONSOR OR [employer] AND [facility] HISTORICAL RESULTS MCHC 31.0(L) 31.8 - 35.4 g/dl 05/19/2017 9:25 PM AN EMPLOYEE SPONSOR OR [employer]ATE AND [facility] HISTORICAL RESULTS RDW 14.1 11.6 - 14.8 % 05/19/2017 9:25 PM AN EMPLOYEE SPONSOR OR ADVOCATE AND [facility] [employer] [facility] H[facility] RESULTS Plt Count 160 124 - 400 x10 3/ul 05/19/2017 9:25 PM AN EMPLOYEE SPONSOR OR [employer]ATE AND [facility] HISTORICAL RESULTS MPV 11.4(H) 7.4 - 10.4 fl 05/19/2017 9:25 PM AN EMPLOYEE SPONSOR OR [employer]ATE AND [facility] [employer] [facility] HISTORICAL RESULTS Neut % 65.5 37.0 - 85.0 % 05/19/2017 9:25 PM AN EMPLOYEE SPONSOR OR [employer] AND [facility] HISTORICAL RESULTS Immature Gran % 0.3 0.0 - 3.0 % 05/19/2017 9:25 PM AN EMPLOYEE SPONSOR OR [employer]ATE AND [facility] HISTORICAL RESULTS Lymph % 20.7 5.0 - 45.0 % 05/19/2017 9:25 PM [employer] [facility] [employer] [facility] HISTORICAL RESULTS [place] % 11.4 3.0 - 15.0 % 05/19/2017 9:25 PM AN EMPLOYEE SPONSOR OR ADVOCATE AND [facility] [employer] [facility] HISTORICAL RESULTS Eos % 1.8 0.0 - 7.0 % 05/19/2017 9:25 PM AN EMPLOYEE SPONSOR OR [employer]ATE AND [facility] HISTORICAL RESULTS Baso % 0.3 0.0 - 2.0 % 05/19/2017 9:25 PM AN EMPLOYEE SPONSOR OR [employer]ATE AND [facility] HISTORICAL RESULTS Absolute Neuts (auto) 6.7 1.7 - 8.7 x10 3/ul 05/19/2017 9:25 PM AN EMPLOYEE SPONSOR OR [employer]ATE AND [facility] [employer] [facility] HISTORICAL RESULTS Immature Gran # 0.0 0.0 - 0.3 x10 3/ul 05/19/2017 9:25 PM AN EMPLOYEE SPONSOR OR ADVOCATE AND [facility] [employer] [facility] HISTORICAL RESULTS Absolute Lymphs (auto) 2.1 0.2 - 4.6 x10 3/ul 05/19/2017 9:25 PM AN EMPLOYEE SPONSOR OR [employer]ATE AND [facility] HISTORICAL RESULTS Absolute Monos (auto) 1.2 0.1 - 1.5 x10 3/ul 05/19/2017 9:25 PM AN EMPLOYEE SPONSOR OR [employer]ATE AND [facility] HISTORICAL RESULTS Absolute Eos (auto) 0.2 0.0 - 0.7 x10 3/ul 05/19/2017 9:25 PM AN EMPLOYEE SPONSOR OR [employer]ATE AND [facility] HISTORICAL RESULTS Absolute Basos (auto) 0.0 0.0 - 0.2 x10 3/ul Nucleat RBC Rel Count 0.0 0 - 3 #/100WBC Absolute Nucleated RBC 0.00 x10 3/ul Absolute Neutrophils 6700 200 - 8000 /ul 05/19/2017 9:19 PM AN EMPLOYEE SPONSOR OR ADVOCATE AND 05/19/2017 9:23 PM AN EMPLOYEE SPONSOR OR [employer]ATE AND us Marcelo Winters II, MD LAB BLOOD ORDERABLES iLzzy ortiz Result [facility] HISTORICAL RESULTS * B-type natriuretic peptide (05/19/2017 9:19 PM AN EMPLOYEE SPONSOR OR ADVOCATE AND) B-Natriuretic Peptide 42 0 - 100 pg/mL Comment: B Natriutetic Peptide METHOD: ??[employer] Centaur XP using [place]. Decision threshold of 100 pg/mL has been demonstrated to provide the maximal combination of sensitivity, specificity, and predictive value for the diagnosis of congestive heart failure (CHF). ??Virtually all patients with no evidence of CHF have BNP values <100 pg/mL. ?? NOTE: ??Nesiritide (Natrecor) interferes with the BNP assay. BNP result will be invalid if drawn within 2 hours of bolus or infusion of nesiritide. 05/19/2017 9:19 PM AN EMPLOYEE SPONSOR OR ADVOCATE AND 05/19/2017 9:23 PM AN EMPLOYEE SPONSOR OR ADVOCATE AND us Marcelo Winters II, MD LAB BLOOD ORDERABLES Lizzy ortiz Result [facility] HISTORICAL RESULTS * XR Chest 1 View (05/19/2017 12:00 AM AN EMPLOYEE SPONSOR OR ADVOCATE AND) Anatomical Region Laterality Modality Body, Chest N/A Radiographic Wendy ging 05/19/2017 Impressions 05/19/2017 9:30 PM AN EMPLOYEE SPONSOR OR ADVOCATE AND ??Cardiomegaly. ?? 2. ??Mild atelectasis and/or infiltrate in the right base. 3. ??More severe moderate consolidation left base likely evidence for infectious process. THIS IS AN ELECTRONICALLY VERIFIED REPORT 05/19/2017 9:26 PM: ??Mario Garcia M.D. ?? Mario Garcia M.D. RW:royal 09:26 PM 09:26 PM TAYO [EOD] Narrative 05/19/2017 9:30 PM AN EMPLOYEE SPONSOR OR ADVOCATE AND EXAMINATION: ??CHEST X-RAY SINGLE VIEW HISTORY: ??Shortness of breath edema lower extremities dizziness for 2 weeks TECHNIQUE: ??Single frontal projection of the chest. COMPARISON: ??12/07/2015 FINDINGS: ??Cardiomegaly. ??There is pulmonary vascular congestion. ?? Bibasilar consolidation left greater than right. ??Small bilateral pleural effusions. ??There is no pneumothorax. ?? Procedure Note Provider, Richard, - 10/12/2020 EXAMINATION: CHEST X-RAY SINGLE VIEW HISTORY: Shortness of breath edema lower extremities dizziness for 2weeks TECHNIQUE: Single frontal projection of the chest. COMPARISON: 12/07/2015 FINDINGS: Cardiomegaly. There is pulmonary vascular congestion. Bibasilar consolidation left greater than right. Small bilateral pleural effusions. There is no pneumothorax. IMPRESSION: Cardiomegaly. 2. Mild atelectasis and/or infiltrate in the right base. 3. More severe moderate consolidation left base likely evidence for infectious process. THIS IS AN ELECTRONICALLY VERIFIED REPORT 05/19/2017 9:26 PM: Mario Garcia M.D. Mario Garcia M.D. 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 (HCC) Chronic diastolic heart failure (HCC) Chronic diastolic heart failure Acute and chronic respiratory failure with hypoxia (CMS/HCC) (HCC) Chronic obstructive pulmonary disease with acute lower respiratory infection (HCC) Paroxysmal atrial fibrillation (CMS/HCC) (HCC) Atrial fibrillation Morbid (severe) obesity with alveolar hypoventilation (HCC) Chronic obstructive pulmonary disease with acute exacerbation (HCC) Hyperlipidemia Other and unspecified hyperlipidemia Old myocardial infarction Primary osteoarthritis of left hip Body mass index (BMI) of 45.0-49.9 in adult (HCC) 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
--- OUTSIDE RECORDS SUMMARY | 2024-05-14 16:53 | XMS_ITS | Encounter Summary ---
Author Organization [facility] Healthcare Address [address] [place] [id number] Care Team Providers Care It Operations Analyst Name Role Phone No, Physician Primary Care Provider [phone] No, Physician Primary Care Provider [phone] No, Physician Unavailable Encounter Details Date Type Department Care Team (Latest Contact Info) Description 05/13/2018 3:13 AM FOOD SANITARIAN - 05/30/2018 6:00 PM [facility] [[email or web address] Hospital Encounter [facility] Major Abraham MD [facility] [place] [address] Acute and chronic respiratory failure with hypoxia (CMS/HCC); Acute and chronic respiratory failure with hypercapnia (CMS/HCC); Chronic obstructive pulmonary disease with acute exacerbation (CMS/HCC); Chronic obstructive pulmonary disease with acute lower respiratory infection (CMS/HCC); Pneumonia; Metabolic encephalopathy; Acute respiratory distress syndrome (CMS/HCC); Encounter for immunization; Paroxysmal atrial fibrillation (CMS/HCC); Hypertensive heart disease with heart failure (CMS/HCC); Chronic diastolic heart failure (CMS/HCC); Type 2 diabetes mellitus with diabetic neuropathy (CMS/HCC); Polyneuropathy; Morbid (severe) obesity with alveolar hypoventilation (CMS/HCC); Body mass index (BMI) of 45.0-49.9 in adult (CMS/HCC); Cigarette nicotine dependence, uncomplicated; Patient's other noncompliance with medication regimen; Other chronic pain; Acquired absence of other specified parts of digestive tract; residential current use of aspirin; Other detention (current) drug therapy; Dependence on supplemental oxygen Social History Tobacco Use Types Packs/Day Years Used Date Smoking Tobacco: Never Assessed Sex and Gender Information Value Date Recorded Sex Assigned at Not on file Legal Sex Male 8:36 AM CDT Gender Identity Not on file Sexual Orientation Not on file documented as of this encounter Last Filed Vital Signs Vital Sign Reading Time Taken Comments Blood Pressure 129/87 05/27/2018 9:30 AM FOOD SANITARIAN Pulse 82 05/27/2018 9:30 AM FOOD SANITARIAN Temperature 37.1 ??C (98.7 ??F) 05/27/2018 9:30 AM CS T Respiratory Rate - - Oxygen Saturation 94% 05/27/2018 9:30 AM FOOD SANITARIAN Inhaled Oxygen Concentration - - Weight 132 kg (291 lb 1.6 oz) 05/27/2018 9:30 AM FOOD SANITARIAN Height 172.7 cm (5' 8 ) 05/27/2018 9:30 AM FOOD SANITARIAN Body Mass Index 44.26 05/27/2018 9:30 AM FOOD SANITARIAN documented in this encounter Plan of Treatment Not on file documented as of this encounter Procedures Procedure Name Priority Date/Time Associated Diagnosis Comments CBC WITH AUTO DIFFERENTIAL Routine 05/30/2018 6:34 AM FOOD SANITARIAN MAGNESIUM Routine 05/30/2018 6:34 AM FOOD SANITARIAN COMPREHENSIVE METABOLIC PANEL Routine 05/30/2018 6:34 AM FOOD SANITARIAN XR CHEST PA LATERAL 2 VIEWS Routine 05/30/2018 12:00 AM FOOD SANITARIAN CBC WITH AUTO DIFFERENTIAL Routine 05/28/2018 4:34 AM FOOD SANITARIAN BASIC METABOLIC PANEL Routine 05/28/2018 4:34 AM FOOD SANITARIAN XR CHEST 1 VIEW Routine 05/28/2018 12:00 AM FOOD SANITARIAN CBC WITH AUTO DIFFERENTIAL Routine 05/27/2018 4:22 AM FOOD SANITARIAN B-TYPE NATRIURETIC PEPTIDE Routine 05/27/2018 4:22 AM FOOD SANITARIAN BASIC METABOLIC PANEL Routine 05/27/2018 4:22 AM FOOD SANITARIAN CBC WITH AUTO DIFFERENTIAL Routine 05/26/2018 4:43 AM FOOD SANITARIAN BASIC METABOLIC PANEL Routine 05/26/2018 4:43 AM FOOD SANITARIAN XR CHEST 1 VIEW Routine 05/26/2018 12:00 AM FOOD SANITARIAN CBC WITH AUTO DIFFERENTIAL Routine 05/25/2018 4:02 AM FOOD SANITARIAN PHOSPHORUS Routine 05/25/2018 4:02 AM FOOD SANITARIAN BASIC METABOLIC PANEL Routine 05/25/2018 4:02 AM FOOD SANITARIAN XR CHEST 1 VIEW Routine 05/24/2018 6:02 AM FOOD SANITARIAN CBC WITH AUTO DIFFERENTIAL Routine 05/24/2018 4:17 AM FOOD SANITARIAN PHOSPHORUS Routine 05/24/2018 4:17 AM FOOD SANITARIAN BASIC METABOLIC PANEL Routine 05/24/2018 4:17 AM FOOD SANITARIAN BLOOD GAS (INCLUDES COOX) Routine 05/23/2018 6:05 AM FOOD SANITARIAN XR CHEST 1 VIEW Routine 05/23/2018 6:02 AM FOOD SANITARIAN CBC WITH AUTO DIFFERENTIAL Routine 05/23/2018 4:12 AM FOOD SANITARIAN PHOSPHORUS Routine 05/23/2018 4:12 AM FOOD SANITARIAN BASIC METABOLIC PANEL Routine 05/23/2018 4:12 AM FOOD SANITARIAN BLOOD GAS (INCLUDES COOX) Routine 05/22/2018 6:17 AM FOOD SANITARIAN XR CHEST 1 VIEW Routine 05/22/2018 6:02 AM FOOD SANITARIAN CBC WITH AUTO DIFFERENTIAL Routine 05/22/2018 4:31 AM FOOD SANITARIAN PHOSPHORUS Routine 05/22/2018 4:15 AM FOOD SANITARIAN BASIC METABOLIC PANEL Routine 05/22/2018 4:15 AM FOOD SANITARIAN XR CHEST 1 VIEW Routine 05/21/2018 6:02 AM FOOD SANITARIAN CBC WITH AUTO DIFFERENTIAL Routine 05/21/2018 4:28 AM FOOD SANITARIAN PHOSPHORUS Routine 05/21/2018 4:28 AM FOOD SANITARIAN MAGNESIUM Routine 05/21/2018 4:28 AM FOOD SANITARIAN COMPREHENSIVE METABOLIC PANEL Routine 05/21/2018 4:28 AM FOOD SANITARIAN BLOOD GAS (INCLUDES COOX) Routine 05/20/2018 3:40 PM FOOD SANITARIAN BLOOD GAS (INCLUDES COOX) Routine 05/20/2018 12:34 PM FOOD SANITARIAN BLOOD GAS (INCLUDES COOX) Routine 05/20/2018 6:15 AM FOOD SANITARIAN XR CHEST 1 VIEW Routine 05/20/2018 6:02 AM FOOD SANITARIAN CBC WITH AUTO DIFFERENTIAL Routine 05/20/2018 4:20 AM FOOD SANITARIAN TRIGLYCERIDES Routine 05/20/2018 4:20 AM FOOD SANITARIAN PHOSPHORUS Routine 05/20/2018 4:20 AM FOOD SANITARIAN MAGNESIUM Routine 05/20/2018 4:20 AM FOOD SANITARIAN COMPREHENSIVE METABOLIC PANEL Routine 05/20/2018 4:20 AM FOOD SANITARIAN XR CHEST 1 VIEW Routine 05/19/2018 6:02 AM FOOD SANITARIAN BLOOD GAS (INCLUDES COOX) Routine 05/19/2018 4:44 AM FOOD SANITARIAN CBC WITH AUTO DIFFERENTIAL Routine 05/19/2018 4:19 AM FOOD SANITARIAN PHOSPHORUS Routine 05/19/2018 4:19 AM FOOD SANITARIAN MAGNESIUM Routine 05/19/2018 4:19 AM FOOD SANITARIAN COMPREHENSIVE METABOLIC PANEL Routine 05/19/2018 4:19 AM FOOD SANITARIAN XR CHEST 1 VIEW Routine 05/18/2018 6:02 AM FOOD SANITARIAN BLOOD GAS (INCLUDES COOX) Routine 05/18/2018 4:41 AM FOOD SANITARIAN CBC WITH AUTO DIFFERENTIAL Routine 05/18/2018 4:39 AM FOOD SANITARIAN TRIGLYCERIDES Routine 05/18/2018 4:39 AM FOOD SANITARIAN PHOSPHORUS Routine 05/18/2018 4:39 AM FOOD SANITARIAN MAGNESIUM Routine 05/18/2018 4:39 AM FOOD SANITARIAN COMPREHENSIVE METABOLIC PANEL Routine 05/18/2018 4:39 AM FOOD SANITARIAN XR CHEST 1 VIEW Routine 05/17/2018 6:02 AM FOOD SANITARIAN BLOOD GAS (INCLUDES COOX) Routine 05/17/2018 5:03 AM FOOD SANITARIAN CBC WITH AUTO DIFFERENTIAL Routine 05/17/2018 4:30 AM FOOD SANITARIAN PHOSPHORUS Routine 05/17/2018 4:30 AM FOOD SANITARIAN MAGNESIUM Routine 05/17/2018 4:30 AM FOOD SANITARIAN COMPREHENSIVE METABOLIC PANEL Routine 05/17/2018 4:30 AM FOOD SANITARIAN BLOOD GAS (INCLUDES COOX) Routine 05/16/2018 6:12 PM FOOD SANITARIAN BASIC METABOLIC PANEL Routine 05/16/2018 6:03 PM FOOD SANITARIAN BLOOD GAS (INCLUDES COOX) Routine 05/16/2018 9:13 AM FOOD SANITARIAN BLOOD GAS (INCLUDES COOX) Routine 05/16/2018 6:17 AM FOOD SANITARIAN XR CHEST 1 VIEW Routine 05/16/2018 6:02 AM FOOD SANITARIAN CBC WITH AUTO DIFFERENTIAL Routine 05/16/2018 4:18 AM FOOD SANITARIAN MAGNESIUM Routine 05/16/2018 4:18 AM FOOD SANITARIAN COMPREHENSIVE METABOLIC PANEL Routine 05/16/2018 4:18 AM FOOD SANITARIAN PROCEDURE - RESULT 05/16/2018 12 :00 AM FOOD SANITARIAN MICROBIOLOGY SPECIMEN REPORT (CONVERTED) Routine 05/15/2018 2:50 PM FOOD SANITARIAN BLOOD GAS (INCLUDES COOX) Routine 05/15/2018 9:28 AM FOOD SANITARIAN BLOOD GAS (INCLUDES COOX) Routine 05/15/2018 5:16 AM FOOD SANITARIAN CBC WITH AUTO DIFFERENTIAL Routine 05/15/2018 4:36 AM FOOD SANITARIAN BASIC METABOLIC PANEL Routine 05/15/2018 4:36 AM FOOD SANITARIAN XR CHEST 1 VIEW Routine 05/15/2018 12:00 AM FOOD SANITARIAN MYCOPLASMA PNEUMONIAE PCR Routine 05/14/2018 10:30 PM FOOD SANITARIAN BLOOD GAS (INCLUDES COOX) Routine 05/14/2018 9:21 PM FOOD SANITARIAN CBC WITH AUTO DIFFERENTIAL Routine 05/14/2018 4:17 AM FOOD SANITARIAN PHOSPHORUS Routine 05/14/2018 4:17 AM FOOD SANITARIAN MAGNESIUM Routine 05/14/2018 4:17 AM FOOD SANITARIAN BASIC METABOLIC PANEL Routine 05/14/2018 4:17 AM FOOD SANITARIAN IGE Routine 05/14/2018 4:16 AM FOOD SANITARIAN URINALYSIS AND REFLEX TO MICROSCOPIC AND CULTURE Routine 05/13/2018 8:33 PM FOOD SANITARIAN STREP PNEUMONIAE AG, URINE Routine 05/13/2018 8:33 PM FOOD SANITARIAN LEGIONELLA PNEUMOPHILIA ANTIGEN, URINE Routine 05/13/2018 8:33 PM FOOD SANITARIAN BLOOD GAS (INCLUDES COOX) Routine 05/13/2018 7:11 PM FOOD SANITARIAN TRANSTHORACIC ECHO (TTE) COMPLETE W DOPPLER/CF Routine 05/13/2018 1:35 PM FOOD SANITARIAN BLOOD GAS (INCLUDES COOX) Routine 05/13/2018 10:19 AM FOOD SANITARIAN TROPONIN I Routine 05/13/2018 8:42 AM FOOD SANITARIAN BLOOD GAS W/LYTES & LACTATE Routine 05/13/2018 6:25 AM FOOD SANITARIAN PROCALCITONIN PRE-ANTIBIOTIC Routine 05/13/2018 6:24 AM FOOD SANITARIAN TNI WITH LIPID PANEL Routine 05/13/2018 6:24 AM FOOD SANITARIAN BETA-HYDROXYBUTYRATE Routine 05/13/2018 6:24 AM FOOD SANITARIAN APTT Routine 05/13/2018 6:24 AM FOOD SANITARIAN PROTIME-INR Routine 05/13/2018 6:24 AM FOOD SANITARIAN PHOSPHORUS Routine 05/13/2018 6:24 AM FOOD SANITARIAN B-TYPE NATRIURETIC PEPTIDE Routine 05/13/2018 6:24 AM FOOD SANITARIAN MAGNESIUM Routine 05/13/2018 6:24 AM FOOD SANITARIAN LIPASE Routine 05/13/2018 6:24 AM FOOD SANITARIAN HEMOGLOBIN A1C Routine 05/13/2018 6:24 AM FOOD SANITARIAN CREATINE KINASE (CK), TOTAL Routine 05/13/2018 6:24 AM FOOD SANITARIAN COMPREHENSIVE METABOLIC PANEL Routine 05/13/2018 6:24 AM FOOD SANITARIAN INFECTION PREVENTION MRSA ONLY (STAPHYLOCOCCUS AUREUS) PCR Routine 05/13/2018 5:00 AM FOOD SANITARIAN MICROBIOLOGY SPECIMEN REPORT (CONVERTED) Routine 05/13/2018 3:29 AM FOOD SANITARIAN MICROBIOLOGY SPECIMEN REPORT (CONVERTED) Routine 05/13/2018 3:20 AM FOOD SANITARIAN CBC WITH AUTO DIFFERENTIAL Routine 05/13/2018 3:20 AM FOOD SANITARIAN AMMONIA Routine 05/13/2018 3:20 AM FOOD SANITARIAN BLOOD GAS W/LYTES & LACTATE Routine 05/13/2018 3:02 AM FOOD SANITARIAN PROCEDURE - RESULT 05/13/2018 12 :00 AM FOOD SANITARIAN CARDIOLOGY REPORT 05/13/2018 12: 00 AM FOOD SANITARIAN XR CHEST 1 VIEW Routine 05/13/2018 12:[address] ABDOMEN PELVIS W CONTRAST Routine 05/13/2018 12:[address] CHEST W CONTRAST Routine 05/13/2018 1 2:[address] HEAD WO CONTRAST Routine 05/13/2018 1 2:00 AM FOOD SANITARIAN XR ABDOMEN AP 1 VIEW Routine 05/13/2018 12:00 AM FOOD SANITARIAN XR ABDOMEN AP 1 VIEW Routine 05/13/2018 12:00 AM FOOD SANITARIAN HEMOGRAM WITH MANUAL DIFFERENTIAL Routine 05/12/2018 11:06 PM FOOD SANITARIAN LIPASE Routine 05/12/2018 11:06 PM FOOD SANITARIAN COMPREHENSIVE METABOLIC PANEL Routine 05/12/2018 11:06 PM FOOD SANITARIAN XR CHEST 1 VIEW Routine 05/12/2018 12:00 AM FOOD SANITARIAN XR HIP RIGHT 2 OR 3 VIEWS Routine 05/12/2018 12:00 AM FOOD SANITARIAN documented in this encounter Results * Magnesium (05/30/2018 6:34 AM FOOD SANITARIAN) Magnesium 1.9 1.6 - 2.6 mg/dL 05/30/2018 7:24 AM [facility] HISTORICAL RESULTS Comment:Magnesium sulfate th erapy: 3.0-9.1 mg/dL 05/30/2018 6:34 AM FOOD SANITARIAN 05/30/2018 6:58 AM FOOD SANITARIAN Michelle Goodman MD LAB BLOOD ORDERABLES Final Result [facility] HISTORICAL RESULTS * (ABNORMAL) Comprehensive metabolic panel (05/30/2018 6:34 AM FOOD SANITARIAN) Sodium 143 135 - 145 mmol/L 05/30/2018 7:24 AM [facility] HISTORICAL RESULTS Potassium 4.2 3.3 - 5.1 mmol/L Chloride 96 96 - 108 mmol/L Carbon Dioxide 39(H) 22 - 32 mmol/L Anion Gap 8 7 - 16 Glucose 97 70 - 100 mg/dL BUN 19 6 - 20 mg/dL Creatinine 0.4(L) 0.5 - 1.3 mg/dL 05/30/2018 7:[address] [facility] [employer] [facility] HISTORICAL RESULTS Comment: NOTE: Estimated GFR (Cockroft-Gault) will NOT be calculated unless patient Height and Weight were entered. Also, Kidney Disease Stage (GFR) and Estimated GFR (Cockroft-Gault) will NOT be calculated if Creatinine result is <0.2. Kidney Disease Stage > 90 mL/MIN 05/30/2018 7:24 AM [employer] HISTORICAL RESULTS Comment: NOTE; ??The GFR is [...] or on dialysis @ Est GFR (Cockcroft-G) 264 ml/MIN 05/30/2018 7:24 AM [employer] HISTORICAL RESULTS Comment: Estimated GFR(Cockroft-Gault)is used to calculate patient medication dosage Calcium 9.0 8.6 - 10.0 mg/dL 05/30/2018 7:24 AM [employer] HISTORICAL RESULTS Total Protein 5.8(L) 6.4 - 8.3 g/dL 05/30/2018 7:24 AM [employer] HISTORICAL RESULTS Albumin 3.3(L) 3.5 - 5.2 g/dL 05/30/2018 7:24 AM [employer] [facility] [employer] HISTORICAL RESULTS Globulin 2.5 2.3 - 3.5 gm/dL 05/30/2018 7:24 AM [employer] [facility] HISTOR[facility] RESULTS Albumin/Globulin Ratio 1.3 1.1 - 1.8 Total Bilirubin 0.7 0.0 - 1.2 mg/dL 05/30/2018 7:24 AM FOOD SANITARIAN [facility] HISTORICAL RESULTS AST 16 0 - 40 U/L 05/30/2018 7:24 AM FOOD SANITARIAN [facility] HISTORICAL RESULTS ALT 27 0 - 41 U/L Alkaline Phosphatase 53 40 - 129 U/L 05/30/2018 6:34 AM FOOD SANITARIAN 05/30/2018 6:58 AM FOOD SANITARIAN Michelle Goodman MD LAB BLOOD ORDERABLES Final Result [facility] HISTORICAL RESULTS * (ABNORMAL) CBC with auto differential (05/30/2018 6:34 AM FOOD SANITARIAN) WBC 8.1 3.8 - 9.9 X10 3/ul RBC 4.84 4.30 - 5.80 x10 6/ul Hemoglobin 15.7 13.0 - 17.5 g/dL Hct 49.9 38.9 - 50.3 % MCV 103.1(H) 81.3 - 96.4 fl MCH 32.4 27.1 - 33.3 pg MCHC 31.5(L) 32.3 - 35.7 g/dl RDW 12.6 11.1 - 14.9 % Plt Count 105(L) 150 - 400 x10 3/ul MPV 11.9 9.1 - 12.3 fl Neut % 57.7 % Immature Gran % 0.5 % 9 7:20 AM [facility] HISTORICAL RESULTS Lymph % 31.9 % [place] % 8.2 % Eos % 1.5 % Baso % 0.2 % Absolute Neuts (auto) 4.7 1.7 - 6.5 x10 3/ul Immature Gran # 0.0 0.0 - 0.1 x10 3/ul Absolute Lymphs (auto) 2.6 0.8 - 3.3 x10 3/ul Absolute Monos (auto) 0.7 0.2 - 0.8 x10 3/ul Absolute Eos (auto) 0.1 0.0 - 0.5 x10 3/ul Absolute Basos (auto) 0.0 0.0 - 0.1 x10 3/ul Nucleat RBC Rel Count 0.0 #/100WBC Absolute Nucleated RBC 0.00 0.00 - 0.01 x10 3/ul Absolute Neutrophils 4700 200 - 8000 /ul 05/30/2018 6:34 AM FOOD SANITARIAN 05/30/2018 6:58 AM FOOD SANITARIAN Michelle Goodman MD LAB BLOOD ORDERABLES Final Result [facility] HISTORICAL RESULTS * XR Chest Pa Lateral 2 Views (05/30/2018 12:00 AM FOOD SANITARIAN) Anatomical Region Laterality Modality Body, Chest N/A Radiographic Wendy ging 05/30/2018 Impressions 05/30/2018 8:14 AM FOOD SANITARIAN ??Increasing basilar infiltrates THIS IS AN ELECTRONICALLY VERIFIED FINAL REPORT 05/30/2018 8:11 AM - Electronically signed by Cm Antonio M.D. WM D: ??05/30/2018 8:11 AM T: Report ID: [id number] Reading Location: ??[id number] [EOD] Narrative 05/30/2018 8:14 AM FOOD SANITARIAN EXAM DESCRIPTION: ??Chest 2 Views REASON FOR STUDY: ??Short of breath since May 13 TECHNIQUE: ??Frontal and lateral radiographic views of the chest acquired. COMPARISON: ??05/28/2018 FINDINGS: LUNGS/PLEURA: There is increasing interstitial infiltrate in the bases. HEART/MEDIASTINUM: Upper limits of normal HARDWARE/LINES/TUBES: None. BONES: No acute findings. OTHER: No other significant finding. Procedure Note Provider, Richard, - 10/12/2020 EXAM DESCRIPTION: Chest 2 Views REASON FOR STUDY: Short of breath since May 13 TECHNIQUE: Frontal and lateral radiographic views of the chestacquired. COMPARISON: 05/28/2018 FINDINGS: LUNGS/PLEURA: There is increasing interstitial infiltrate in the bases. HEART/MEDIASTINUM: Upper limits of normal HARDWARE/LINES/TUBES: None. BONES: No acute findings. OTHER: No other significant finding. IMPRESSION: Increasing basilar infiltrates THIS IS AN ELECTRONICALLY VERIFIED FINAL REPORT 05/30/2018 8:11 AM - Electronically signed by Cm Antonio M.D. WM T: Report ID: [id number] Reading Location: [id number] [EOD] Michelle Goodman MD IMG XR PROCEDURES Final Res ult * (ABNORMAL) CBC with auto differential (05/28/2018 4:34 AM FOOD SANITARIAN) WBC 9.9 3.8 - 9.9 X10 3/ul 05/28/2018 4:[address] [facility] [employer] HISTORICAL RESULTS RBC 4.86 4.30 - 5.80 x10 6/ul 05/28/2018 4:[address] [facility] [employer] HISTORICAL RESULTS Hemoglobin 15.6 13.0 - 17.5 g/dL 05/28/2018 4:46 AM FOOD SANITARIAN [facility] [employer] HISTORICAL RESULTS Hct 49.5 38.9 - 50.3 % 05/28/2018 4:46 AM FOOD SANITARIAN [facility] [employer] [facility] HISTORICAL RESULTS MCV 101.9(H) 81.3 - 96.4 fl 05/28/2018 4:46 AM FOOD SANITARIAN [facility] [employer] HISTORICAL RESULTS MCH 32.1 27.1 - 33.3 pg 05/28/2018 4:46 AM FOOD SANITARIAN [facility] [employer] HISTORICAL RESULTS MCHC 31.5(L) 32.3 - 35.7 g/dl 05/28/2018 4:46 AM [employer] HISTORICAL RESULTS RDW 12.8 11.1 - 14.9 % 05/28/2018 4:46 AM FOOD SANITARIAN [facility] [employer] HISTORICAL RESULTS Plt Count 116(L) 150 - 400 x10 3/ul 05/28/2018 4:46 AM [employer] HISTORICAL RESULTS MPV 11.5 9.1 - 12.3 fl 05/28/2018 4:46 AM [employer] HISTORICAL RESULTS Neut % 63.5 % 05/28/2018 4:46 AM [employer] HISTORICAL RESULTS Immature Gran % 0.4 % 9 4:46 AM FOOD SANITARIAN [facility] [employer] HISTORICAL RESULTS Lymph % 28.0 % 05/28/2018 4:46 AM FOOD SANITARIAN [facility] [employer] HISTORICAL RESULTS [place] % 7.2 % 05/28/2018 4:46 AM FOOD SANITARIAN [employer] HISTORICAL RESULTS Eos % 0.8 % 05/28/2018 4:46 AM FOOD SANITARIAN [facility] [employer] HISTORICAL RESULTS Baso % 0.1 % 05/28/2018 4:46 AM FOOD SANITARIAN [facility] [employer] HISTORICAL RESULTS Absolute Neuts (auto) 6.3 1.7 - 6.5 x10 3/ul 05/28/2018 4:46 AM [employer] HISTORICAL RESULTS Immature Gran # 0.0 0.0 - 0.1 x10 3/ul 05/28/2018 4:46 AM FOOD SANITARIAN [facility] HISTORICAL RESULTS Absolute Lymphs (auto) 2.8 0.8 - 3.3 x10 3/ul 05/28/2018 4:46 AM FOOD SANITARIAN [facility] HISTORICAL RESULTS Absolute Monos (auto) 0.7 0.2 - 0.8 x10 3/ul Absolute Eos (auto) 0.1 0.0 - 0.5 x10 3/ul 05/28/2018 4:46 AM FOOD SANITARIAN [facility] HISTORICAL RESULTS Absolute Basos (auto) 0.0 0.0 - 0.1 x10 3/ul Nucleat RBC Rel Count 0.0 #/100WBC Absolute Nucleated RBC 0.00 0.00 - 0.01 x10 3/ul Absolute Neutrophils 6300 200 - 8000 /ul 05/28/2018 4:34 AM FOOD SANITARIAN 05/28/2018 4:43 AM FOOD SANITARIAN us Symone De Souza SURVEY AND 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 LAB BLOOD ORDERABLES Final Result [facility] HISTORICAL RESULTS * (ABNORMAL) Basic metabolic panel (05/28/2018 4:34 AM FOOD SANITARIAN) Sodium 144 135 - 145 mmol/L Potassium 3.7 3.3 - 5.1 mmol/L Chloride 95(L) 96 - 108 mmol/L Carbon Dioxide 42(H) 22 - 32 mmol/L Anion Gap 7 7 - 16 05/28/2018 5:08 AM [facility] HISTORICAL RESULTS Glucose 100 70 - 100 mg/dL 05/28/2018 5:08 AM [employer] HISTORICAL RESULTS BUN 22(H) 6 - 20 mg/dL 05/28/2018 5:08 AM [employer] HISTORICAL RESULTS Creatinine 0.5 0.5 - 1.3 mg/dL 05/28/2018 5:08 AM [employer] HISTORICAL RESULTS Comment: NOTE: Estimated GFR (Cockroft-Gault) will NOT be calculated unless patient Height and Weight were entered. Also, Kidney Disease Stage (GFR) and Estimated GFR (Cockroft-Gault) will NOT be calculated if Creatinine result is <0.2. Kidney Disease Stage > 90 mL/MIN 05/28/2018 5:08 AM [employer] HISTORICAL RESULTS Comment: NOTE; ??The GFR is [...] or on dialysis @ Est GFR (Cockcroft-G) 190 ml/MIN 05/28/2018 5:08 AM [employer] HISTORICAL RESULTS Comment: Estimated GFR(Cockroft-Gault)is used to calculate patient medication dosage Calcium 9.0 8.6 - 10.0 mg/dL 05/28/2018 5:08 AM [employer] HISTORICAL RESULTS 05/28/2018 4:34 AM FOOD SANITARIAN 05/28/2018 4:43 AM FOOD SANITARIAN us Symone Nara Ap JONES LAB BLOOD ORDERABLES Final Result [facility] HISTORICAL RESULTS * XR Chest 1 View (05/28/2018 12:00 AM FOOD SANITARIAN) Anatomical Region Laterality Modality Body, Chest N/A Radiographic Wendy ging 05/28/2018 Impressions 05/28/2018 7:30 AM FOOD SANITARIAN ??No change THIS IS AN ELECTRONICALLY VERIFIED FINAL REPORT 05/28/2018 7:27 AM - Electronically signed by Cm VALENTINO D: ??05/28/2018 7:27 AM T: Report ID: [id number] Reading Location: ??[id number] [EOD] Narrative 05/28/2018 7:30 AM FOOD SANITARIAN EXAM DESCRIPTION: ??Chest 1 View Portable REASON FOR STUDY: Pt to er 12/16 for SOB and hip pain. Resp distress 05/13; 05/20 extubated / follow up today for progress TECHNIQUE: ??Frontal radiographic view of the chest acquired. COMPARISON: ??05/26/2018 FINDINGS: LUNGS/PLEURA: Patchy interstitial infiltrate or atelectasis in the bases unchanged trace left pleural effusion unchanged HEART/MEDIASTINUM: Borderline heart size HARDWARE/LINES/TUBES: None. BONES: No acute findings. OTHER: No other significant finding. Procedure Note Provider, Richard, - 10/12/2020 EXAM DESCRIPTION: Chest 1 View Portable REASON FOR STUDY: Pt to er 16 for SOB and hip pain. Resp distress 05/13; 05/20 extubated / follow up today for progress TECHNIQUE: Frontal radiographic view of the chest acquired. COMPARISON: 05/26/2018 FINDINGS: LUNGS/PLEURA: Patchy interstitial infiltrate or atelectasis in the bases unchanged trace left pleural effusion unchanged HEART/MEDIASTINUM: Borderline heart size HARDWARE/LINES/TUBES: None. BONES: No acute findings. OTHER: No other significant finding. IMPRESSION: No change THIS IS AN ELECTRONICALLY VERIFIED FINAL REPORT 05/28/2018 7:27 AM - Electronically signed by Cm Antonio M.D. WM T: Report ID: [id number] Reading Location: [id number] [EOD] us Rogers Stephenson MD IMG XR PROCEDURES Final R esult * B-type natriuretic peptide (05/27/2018 4:22 AM FOOD SANITARIAN) [facility] B-Natriuretic Peptide 45 0 - 100 pg/mL 05/27/2018 8:[address] [facility] [employer] [facility] HISTORICAL RESULTS Comment: B Natriutetic Peptide [...] hours of bolus or infusion of nesiritide. 05/27/2018 4:22 AM FOOD SANITARIAN 05/27/2018 7:23 AM FOOD SANITARIAN Mckay Miller MD LAB BLOOD ORDERAB LES Final Result [facility] HISTORICAL RESULTS * (ABNORMAL) Basic metabolic panel (05/27/2018 4:22 AM FOOD SANITARIAN) [facility] Sodium 141 135 - 145 mmol/L 05/27/2018 5:[address] [facility] HISTORICAL RESULTS Potassium 4.3 3.3 - 5.1 mmol/L Chloride 92(L) 96 - 108 mmol/L Carbon Dioxide 41(H) 22 - 32 mmol/L 05/27/2018 5:[address] [facility] [employer] [facility] HISTORICAL RESULTS Anion Gap 8 7 - 16 Glucose 79 70 - 100 mg/dL 05/27/2018 5:45 AM [facility]IT[facility] BUN 25(H) 6 - 20 mg/dL Creatinine 0.4(L) 0.5 - 1.3 mg/dL 05/27/2018 5:45 AM [facility]ULTS Comment: NOTE: Estimated GFR (Cockroft-Gault) will NOT be calculated unless patient Height and Weight were entered. Also, Kidney Disease Stage (GFR) and Estimated GFR (Cockroft-Gault) will NOT be calculated if Creatinine result is <0.2. Kidney Disease Stage > 90 mL/MIN 05/27/2018 5:45 AM [employer] [facility]ULTS Comment: NOTE; ??The GFR is [...] or on dialysis @ Est GFR (Cockcroft-G) 267 ml/MIN 05/27/2018 5:45 AM [employer] [facility] [employer] [facility] RESULTS Comment: Estimated GFR(Cockroft-Gault)is used to calculate patient medication dosage Calcium 8.6 8.6 - 10.0 mg/dL 05/27/2018 5:45 AM [employer] [facility] [employer] [facility] HISTORICAL RESULTS 05/27/2018 4:22 AM [facility] [[email or web address] 05/27/2018 5:16 AM FOOD SANITARIAN us Todd Cruz 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 AND 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 LAB BLOOD ORDERABLES Final Res ult Frilp HISTORICAL RESULTS * (ABNORMAL) CBC with auto differential (05/27/2018 4:22 AM FOOD SANITARIAN) WBC 10.9(H) 3.8 - 9.9 X10 3/ul 05/27/2018 5:20 AM FOOD [facility]ITARIAN [facility] HISTORICAL RESULTS RBC 4.81 4.30 - 5.80 x10 6/ul 05/27/2018 5:20 AM FOOD SANITARIAN [facility] HISTORICAL RESULTS Hemoglobin 15.4 13.0 - 17.5 g/dL 05/27/2018 5:20 AM FOOD SANITARIAN [facility] HISTORICAL RESULTS Hct 48.1 38.9 - 50.3 % 05/27/2018 5:20 AM FOOD SANITARIAN [facility] HISTORICAL RESULTS MCV 100.0(H) 81.3 - 96.4 fl 05/27/2018 5:20 AM FOOD SANITARIAN [facility] HISTORICAL RESULTS MCH 32.0 27.1 - 33.3 pg 05/27/2018 5:20 AM FOOD SANITARIAN [facility] HISTORICAL RESULTS MCHC 32.0(L) 32.3 - 35.7 g/dl 05/27/2018 5:20 AM FOOD SANITARIAN [facility] HISTORICAL RESULTS RDW 12.7 11.1 - 14.9 % 05/27/2018 5:20 AM FOOD SANITARIAN [facility] HISTORICAL RESULTS Plt Count 126(L) 150 - 400 x10 3/ul 05/27/2018 5:20 AM FOOD SANITARIAN [facility] HISTORICAL RESULTS MPV 11.8 9.1 - 12.3 fl 05/27/2018 5:20 AM FOOD SANITARIAN [facility] HISTORICAL RESULTS Neut % 64.7 % 05/27/2018 5:20 AM FOOD SANITARIAN [facility] HISTORICAL RESULTS Immature Gran % 0.6 % 8 5:20 AM FOOD SANITARIAN [facility] HISTORICAL RESULTS Lymph % 24.5 % 05/27/2018 5:20 AM FOOD SANITARIAN [facility] HISTORICAL RESULTS [place] % 9.3 % 05/27/2018 5:20 AM FOOD SANITARIAN [facility] HISTORICAL RESULTS Eos % 0.7 % 05/27/2018 5:20 AM FOOD SANITARIAN [facility] HISTORICAL RESULTS Baso % 0.2 % Absolute Neuts (auto) 7.0(H) 1.7 - 6.5 x10 3/ul Immature Gran # 0.1 0.0 - 0.1 x10 3/ul 05/27/2018 5:20 AM FOOD SANITARIAN [facility] HISTORICAL RESULTS Absolute Lymphs (auto) 2.7 0.8 - 3.3 x10 3/ul Absolute Monos (auto) 1.0(H) 0.2 - 0.8 x10 3/ul Absolute Eos (auto) 0.1 0.0 - 0.5 x10 3/ul Absolute Basos (auto) 0.0 0.0 - 0.1 x10 3/ul Nucleat RBC Rel Count 0.0 #/100WBC Absolute Nucleated RBC 0.00 0.00 - 0.01 x10 3/ul Absolute Neutrophils 7000 200 - 8000 /ul 05/27/2018 4:22 AM FOOD SANITARIAN 05/27/2018 5:16 AM [facility] [[email or web address]] us Mckay Miller MD LAB BLOOD ORDERAB LES Final Result [facility] HISTORICAL RESULTS * (ABNORMAL) CBC with auto differential (05/26/2018 4:43 AM FOOD SANITARIAN) WBC 12.3(H) 3.8 - 9.9 X10 3/ul RBC 4.96 4.30 - 5.80 x10 6/ul 05/26/2018 5:13 AM [facility] HISTORICAL RESULTS Hemoglobin 16.1 13.0 - 17.5 g/dL 05/26/2018 5:13 AM FOOD SANITARIAN [facility] HISTORICAL RESULTS Hct 50.3 38.9 - 50.3 % 05/26/2018 5:13 AM FOOD SANITARIAN [facility] [employer] HISTORICAL RESULTS MCV 101.4(H) 81.3 - 96.4 fl 05/26/2018 5:13 AM [facility] HISTORICAL RESULTS MCH 32.5 27.1 - 33.3 pg 05/26/2018 5:13 AM [employer] [facility] Given[employer] HISTORICAL RESULTS MCHC 32.0(L) 32.3 - 35.7 g/dl 05/26/2018 5:13 AM [facility] HISTORICAL RESULTS RDW 12.9 11.1 - 14.9 % 05/26/2018 5:13 AM [facility] HISTORICAL RESULTS Plt Count 134(L) 150 - 400 x10 3/ul 05/26/2018 5:13 AM [facility] HISTORICAL RESULTS MPV 11.9 9.1 - 12.3 fl 05/26/2018 5:13 AM [facility] HISTORICAL RESULTS Neut % 64.2 % 05/26/2018 5:13 AM [facility] HISTORICAL RESULTS Immature Gran % 0.8 % 8 5:13 AM [facility] HISTORICAL RESULTS Lymph % 26.0 % 05/26/2018 5:13 AM [facility] HISTORICAL RESULTS [place] % 7.8 % 05/26/2018 5:13 AM [facility] HISTORICAL RESULTS Eos % 1.0 % 05/26/2018 5:13 AM [facility] HISTORICAL RESULTS Baso % 0.2 % 05/26/2018 5:13 AM [facility] HISTORICAL RESULTS Absolute Neuts (auto) 7.9(H) 1.7 - 6.5 x10 3/ul 05/26/2018 5:13 AM [facility] HISTORICAL RESULTS Immature Gran # 0.1 0.0 - 0.1 x10 3/ul 05/26/2018 5:13 AM [facility] HISTORICAL RESULTS Absolute Lymphs (auto) 3.2 0.8 - 3.3 x10 3/ul 05/26/2018 5:13 AM [facility] HISTORICAL RESULTS Absolute Monos (auto) 1.0(H) 0.2 - 0.8 x10 3/ul Absolute Eos (auto) 0.1 0.0 - 0.5 x10 3/ul 05/26/2018 5:13 AM FOOD SANITARIAN [facility] HISTORICAL RESULTS Absolute Basos (auto) 0.0 0.0 - 0.1 x10 3/ul Nucleat RBC Rel Count 0.0 #/100WBC Absolute Nucleated RBC 0.00 0.00 - 0.01 x10 3/ul Absolute Neutrophils 7900 200 - 8000 /ul 05/26/2018 4:43 AM FOOD SANITARIAN 05/26/2018 5:09 AM [facility] [[email or web address]] cMkay Miller MD LAB BLOOD ORDERAB LES Final Result [facility] HISTORICAL RESULTS * (ABNORMAL) Basic metabolic panel (05/26/2018 4:43 AM [facility] [[email or web address] Sodium 137 135 - 145 mmol/L Potassium 4.2 3.3 - 5.1 mmol/L Chloride 91(L) 96 - 108 mmol/L Carbon Dioxide 39(H) 22 - 32 mmol/L Anion Gap 7 7 - 16 Glucose 86 70 - 100 mg/dL BUN 27(H) 6 - 20 mg/dL Creatinine 0.3(L) 0.5 - 1.3 mg/dL Comment: NOTE: Estimated [...] or on dialysis @ Est GFR (Cockcroft-G) 356 ml/MIN Comment: Estimated GFR(Cockroft-Gault)is used to calculate patient medication dosage Calcium 8.9 8.6 - 10.0 mg/dL 05/26/2018 4:43 AM FOOD SANITARIAN 05/26/2018 5:09 AM FOOD SANITARIAN Mckay Miller MD LAB BLOOD ORDERAB LES Final Result [facility] HISTORICAL RESULTS * XR Chest 1 View (05/26/2018 12:00 AM FOOD SANITARIAN) Anatomical Region Laterality Modality Body, Chest N/A Radiographic Wendy ging 05/26/2018 Impressions 05/26/2018 7:57 AM FOOD SANITARIAN ??No interval change in mild bibasilar atelectasis versus pneumonia and small left pleural effusion. ??Radiographic follow-up to resolution is recommended. THIS IS AN ELECTRONICALLY VERIFIED FINAL REPORT 05/26/2018 7:54 AM - Electronically signed by Jean-Pierre Owens M.D. AB D: ??05/26/2018 7:54 AM T: Report ID: [id number] Reading Location: ??[id number] [EOD] Narrative 05/26/2018 7:57 AM FOOD SANITARIAN EXAM DESCRIPTION: ??Chest 1 View Portable REASON FOR STUDY: ??Follow-up left pleural effusion. TECHNIQUE: ??Frontal radiographic view of the chest acquired. COMPARISON: ??Chest radiograph from May 24, 2018. FINDINGS: LUNGS/PLEURA: Mild bibasilar airspace opacity and small left pleural effusion, unchanged. ??No evidence of a pneumothorax. HEART/MEDIASTINUM: Mild cardiomegaly, unchanged. ??Stable mediastinal and hilar contours. HARDWARE/LINES/TUBES: None. BONES: No acute or aggressive appearing osseous abnormalities. ?? Procedure Note Provider, MD Richard - 10/12/2020 EXAM DESCRIPTION: Chest 1 View Portable REASON FOR STUDY: Follow-up left pleural effusion. TECHNIQUE: Frontal radiographic view of the chest acquired. COMPARISON: Chest radiograph from May 24, 2018. FINDINGS: LUNGS/PLEURA: Mild bibasilar airspace opacity and small left pleural effusion, unchanged. No evidence of a pneumothorax. HEART/MEDIASTINUM: Mild cardiomegaly, unchanged. Stable mediastinal andhilar contours. HARDWARE/LINES/TUBES: None. BONES: No acute or aggressive appearing osseous abnormalities. IMPRESSION: No interval change in mild bibasilar atelectasis versuspneumonia and small left pleural effusion. Radiographic follow-up to resolution is recommended. THIS IS AN ELECTRONICALLY VERIFIED FINAL REPORT 05/26/2018 7:54 AM - Electronically signed by Jean-Pierre Owens M.D. AB T: Report ID: [id number] Reading Location: [id number] [EOD] us Rogers Stephenson MD IMG XR PROCEDURES Final R esult * Phosphorus (05/25/2018 4:02 AM FOOD SANITARIAN) Phosphorus 4.4 2.5 - 4.5 mg/dL 05/25/2018 4:43 AM FOOD SANITARIAN [facility] HISTORICAL RESULTS 05/25/2018 4:02 AM FOOD SANITARIAN 05/25/2018 4:20 AM FOOD SANITARIAN Mckay Miller MD LAB BLOOD ORDERAB LES Final Result [facility] HISTORICAL RESULTS * (ABNORMAL) CBC with auto differential (05/25/2018 4:02 AM FOOD SANITARIAN) WBC 12.1(H) 3.8 - 9.9 X10 3/ul 05/25/2018 4:24 AM FOOD SANITARIAN [facility] HISTORICAL RESULTS RBC 4.97 4.30 - 5.80 x10 6/ul 05/25/2018 4:24 AM FOOD SANITARIAN [facility] HISTORICAL RESULTS Hemoglobin 15.8 13.0 - 17.5 g/dL 05/25/2018 4:24 AM FOOD SANITARIAN [facility] HISTORICAL RESULTS Hct 50.5(H) 38.9 - 50.3 % 05/25/2018 4:24 AM FOOD SANITARIAN [facility] HISTORICAL RESULTS MCV 101.6(H) 81.3 - 96.4 fl 05/25/2018 4:24 AM FOOD SANITARIAN [facility] HISTORICAL RESULTS MCH 31.8 27.1 - 33.3 pg 05/25/2018 4:24 AM FOOD SANITARIAN [facility] HISTORICAL RESULTS MCHC 31.3(L) 32.3 - 35.7 g/dl 05/25/2018 4:24 AM FOOD SANITARIAN [facility] HISTORICAL RESULTS RDW 12.7 11.1 - 14.9 % 05/25/2018 4:24 AM FOOD SANITARIAN [facility] HISTORICAL RESULTS Plt Count 142(L) 150 - 400 x10 3/ul MPV 11.9 9.1 - 12.3 fl Neut % 75.8 % Immature Gran % 0.6 % 8 4:24 AM [facility] HISTORICAL RESULTS Lymph % 14.7 % [place] % 8.6 % Eos % 0.1 % Baso % 0.2 % Absolute Neuts (auto) 9.2(H) 1.7 - 6.5 x10 3/ul Immature Gran # 0.1 0.0 - 0.1 x10 3/ul Absolute Lymphs (auto) 1.8 0.8 - 3.3 x10 3/ul Absolute Monos (auto) 1.0(H) 0.2 - 0.8 x10 3/ul Absolute Eos (auto) 0.0 0.0 - 0.5 x10 3/ul Absolute Basos (auto) 0.0 0.0 - 0.1 x10 3/ul Nucleat RBC Rel Count 0.0 #/100WBC Absolute Nucleated RBC 0.00 0.00 - 0.01 x10 3/ul Absolute Neutrophils 9200(H) 200 - 8000 /ul 05/25/2018 4:24 AM [facility] HISTOR[facility] RESULTS 05/25/2018 4:02 AM FOOD SANITARIAN 05/25/2018 4:20 AM FOOD SANITARIAN Mckay Miller MD LAB BLOOD ORDERAB LES Final Result [facility] * (ABNORMAL) Basic metabolic panel (05/25/2018 4:02 AM FOOD SANITARIAN) Sodium 140 135 - 145 mmol/L 05/25/2018 4:[address] [facility] Given[employer]to HISTORICAL RESULTS Potassium 4.5 3.3 - 5.1 mmol/L Chloride 94(L) 96 - 108 mmol/L Carbon Dioxide 41(H) 22 - 32 mmol/L Anion Gap 5(L) 7 - 16 Glucose 102(H) 70 - 100 mg/dL BUN 27(H) 6 - 20 mg/dL Creatinine 0.4(L) 0.5 - 1.3 mg/dL 05/25/2018 4:[address] [facility] [employer] [facility] HISTORICAL RESULTS Comment: NOTE: Estimated GFR (Cockroft-Gault) will NOT be calculated unless patient Height and Weight were entered. Also, Kidney Disease Stage (GFR) and Estimated GFR (Cockroft-Gault) will NOT be calculated if Creatinine result is <0.2. Kidney Disease Stage > 90 mL/MIN 05/25/2018 4:[address] [facility] [employer] [facility] HISTORICAL RESULTS Comment: NOTE; ??The GFR is [...] or on dialysis @ Est GFR (Cockcroft-G) 268 ml/MIN Comment: Estimated GFR(Cockroft-Gault)is used to calculate patient medication dosage Calcium 9.0 8.6 - 10.0 mg/dL 05/25/2018 4:43 AM FOOD SANITARIAN [facility] HISTORICAL RESULTS 05/25/2018 4:02 AM FOOD SANITARIAN 05/25/2018 4:20 AM FOOD SANITARIAN Mckay Miller MD LAB BLOOD ORDERAB LES Final Result [facility] HISTORICAL RESULTS * XR Chest 1 View (05/24/2018 6:02 AM FOOD SANITARIAN) Anatomical Region Laterality Modality Body, Chest N/A Radiographic Wendy ging 05/24/2018 6:0 2 AM FOOD SANITARIAN Impressions 05/24/2018 7:16 AM FOOD SANITARIAN ??Slight interval improved aeration of the left lower lobe with persistent small left-sided effusion with associated atelectasis and/or pneumonia. ??Stable cardiomegaly. THIS IS AN ELECTRONICALLY VERIFIED FINAL REPORT 05/24/2018 7:12 AM - Electronically signed by Bull Clark M.D. D: ??05/24/2018 7:12 AM T: Report ID: [id number] Reading Location: ??[id number] [EOD] Narrative 05/24/2018 7:16 AM FOOD SANITARIAN EXAM DESCRIPTION: ??Chest 1 View Portable REASON FOR STUDY: ??Patient admitted with shortness of breath and respiratory distress. ??Follow-up examination. TECHNIQUE: ??Frontal radiographic view of the chest acquired. COMPARISON: ??Chest x-ray 05/23/[address] 05/13/2018 FINDINGS: There is persistent opacification in the left lower lobe with slight interval improved aeration, likely persistent small effusion and atelectasis and/or pneumonia given the appearance on the prior chest CT. ??Persistent mild atelectasis in the right lower lobe. ??Stable cardiomegaly. ??Pulmonary vasculature is within normal limits. Procedure Note Provider, Richard, - 10/12/2020 EXAM DESCRIPTION: Chest 1 View Portable REASON FOR STUDY: Patient admitted with shortness of breath andrespiratory distress. Follow-up examination. TECHNIQUE: Frontal radiographic view of the chest acquired. COMPARISON: Chest x-ray 05/23/[address] 05/13/2018 FINDINGS: There is persistent opacification in the left lower lobe with slightinterval improved aeration, likely persistent small effusion and atelectasis and/or pneumonia given the appearance on the prior chest CT. Persistent mild atelectasis in the right lower lobe. Stable cardiomegaly. Pulmonary vasculature is within normal limits. IMPRESSION: Slight interval improved aeration of the left lower lobe with persistent small left-sided effusion with associated atelectasis and/or pneumonia. Stable cardiomegaly. THIS IS AN ELECTRONICALLY VERIFIED FINAL REPORT 05/24/2018 7:12 AM - Electronically signed by Bull Clark M.D. T: Report ID: [id number] Reading Location: [id number] [EOD] us Michelle Goodman MD IMG XR PROCEDURES Final Res ult * Phosphorus (05/24/2018 4:17 AM FOOD SANITARIAN) Phosphorus 4.2 2.5 - 4.5 mg/dL 05/24/2018 5:10 AM [facility] HISTORICAL RESULTS 05/24/2018 4:17 AM FOOD SANITARIAN 05/24/2018 4:46 AM FOOD SANITARIAN Mckay Miller MD LAB BLOOD ORDERAB LES Final Result [facility] HISTORICAL RESULTS * (ABNORMAL) CBC with auto differential (05/24/2018 4:17 AM FOOD SANITARIAN) WBC 11.0(H) 3.8 - 9.9 X10 3/ul 05/24/2018 4:49 AM FOOD SANITARIAN [facility] HISTORICAL RESULTS RBC 5.11 4.30 - 5.80 x10 6/ul 05/24/2018 4:49 AM FOOD SANITARIAN [facility] HISTORICAL RESULTS Hemoglobin 16.6 13.0 - 17.5 g/dL 05/24/2018 4:49 AM FOOD SANITARIAN [facility] HISTORICAL RESULTS Hct 52.5(H) 38.9 - 50.3 % 05/24/2018 4:49 AM [facility] HISTORICAL RESULTS MCV 102.7(H) 81.3 - 96.4 fl 05/24/2018 4:49 AM FOOD SANITARIAN [facility] HISTORICAL RESULTS MCH 32.5 27.1 - 33.3 pg 05/24/2018 4:49 AM FOOD SANITARIAN [facility] HISTORICAL RESULTS MCHC 31.6(L) 32.3 - 35.7 g/dl 05/24/2018 4:49 AM [facility] HISTORICAL RESULTS RDW 12.9 11.1 - 14.9 % 05/24/2018 4:49 AM [facility] HISTORICAL RESULTS Plt Count 135(L) 150 - 400 x10 3/ul 05/24/2018 4:49 AM FOOD SANITARIAN [facility] HISTORICAL RESULTS MPV 12.1 9.1 - 12.3 fl 05/24/2018 4:49 AM [facility] HISTORICAL RESULTS Neut % 71.3 % 05/24/2018 4:49 AM [facility] HISTORICAL RESULTS Immature Gran % 0.7 % 8 4:49 AM [facility] HISTORICAL RESULTS Lymph % 16.8 % 05/24/2018 4:49 AM [facility] HISTORICAL RESULTS [place] % 10.3 % Eos % 0.7 % Baso % 0.2 % Absolute Neuts (auto) 7.9(H) 1.7 - 6.5 x10 3/ul Immature Gran # 0.1 0.0 - 0.1 x10 3/ul 05/24/2018 4:49 AM FOOD SANITARIAN [facility] HISTORICAL RESULTS Absolute Lymphs (auto) 1.9 0.8 - 3.3 x10 3/ul Absolute Monos (auto) 1.1(H) 0.2 - 0.8 x10 3/ul Absolute Eos (auto) 0.1 0.0 - 0.5 x10 3/ul Absolute Basos (auto) 0.0 0.0 - 0.1 x10 3/ul Nucleat RBC Rel Count 0.0 #/100WBC Absolute Nucleated RBC 0.00 0.00 - 0.01 x10 3/ul Absolute Neutrophils 7900 200 - 8000 /ul 05/24/2018 4:17 AM FOOD SANITARIAN 05/24/2018 4:46 AM FOOD SANITARIAN us Mckay Miller MD LAB BLOOD ORDERAB LES Final Result [facility] HISTORICAL RESULTS * (ABNORMAL) Basic metabolic panel (05/24/2018 4:17 AM FOOD SANITARIAN) Sodium 141 135 - 145 mmol/L 05/24/2018 5:10 AM [facility] HISTORICAL RESULTS Potassium 4.2 3.3 - 5.1 mmol/L 05/24/2018 5:10 AM [facility] HISTORICAL RESULTS Chloride 92(L) 96 - 108 mmol/L 05/24/2018 5:10 AM [employer] [facility] [employer] HISTORICAL RESULTS Carbon Dioxide 40(H) 22 - 32 mmol/L 05/24/2018 5:10 AM [employer] [facility] [employer] HISTORICAL RESULTS Anion Gap 9 7 - 16 05/24/2018 5:10 AM [facility] HISTORICAL RESULTS Glucose 98 70 - 100 mg/dL 05/24/2018 5:10 AM [facility] HISTORICAL RESULTS BUN 37(H) 6 - 20 mg/dL 05/24/2018 5:10 AM [facility] HISTORICAL RESULTS Creatinine 0.4(L) 0.5 - 1.3 mg/dL 05/24/2018 5:10 AM [facility] HISTORICAL RESULTS Comment: NOTE: Estimated GFR (Cockroft-Gault) will NOT be calculated unless patient Height and Weight were entered. Also, Kidney Disease Stage (GFR) and Estimated GFR (Cockroft-Gault) will NOT be calculated if Creatinine result is <0.2. Kidney Disease Stage > 90 mL/MIN 05/24/2018 5:10 AM [facility] HISTORICAL RESULTS Comment: NOTE; ??The GFR is [...] or on dialysis @ Est GFR (Cockcroft-G) 267 ml/MIN 05/24/2018 5:10 AM [facility] HISTORICAL RESULTS Comment: Estimated GFR(Cockroft-Gault)is used to calculate patient medication dosage Calcium 9.2 8.6 - 10.0 mg/dL 05/24/2018 5:10 AM FOOD SANITARIAN [facility] HISTORICAL RESULTS 05/24/2018 4:17 AM FOOD SANITARIAN 05/24/2018 4:46 AM FOOD SANITARIAN Mckay Miller MD LAB BLOOD ORDERAB LES Final Result [facility] HISTORICAL RESULTS * (ABNORMAL) Blood gas (includes COOX) (05/23/2018 6:05 AM FOOD SANITARIAN) Specimen Type ARTERIAL 05/23/2018 6:18 AM FOOD SANITARIAN [facility] HISTORICAL RESULTS Puncture Site LR 05/23/2018 6:18 AM FOOD SANITARIAN [facility] HISTORICAL RESULTS Patient Temperature 37.0 C 05/23 6:18 AM [facility] HISTORICAL RESULTS pH 7.496(H) 7.350 - 7.450 05/23/2018 6:18 AM [facility] HISTORICAL RESULTS pCO2 53.2(H) 32.0 - 48.0 mmHg 05/23/2018 6:18 AM [facility] HISTORICAL RESULTS pO2 76.2(L) 80.0 - 110.0 mmHg 05/23/2018 6:18 AM FOOD SANITARIAN [facility] HISTORICAL RESULTS HCO3 40.7(H) 22.0 - 26.0 mmol/L 05/23/2018 6:18 AM FOOD SANITARIAN [facility] HISTORICAL RESULTS Total CO2 42.4(H) 20.0 - 30.0 mmol/L 05/23/2018 6:18 AM [facility] HISTORICAL RESULTS Base Excess 14.4(H) -2.0 - 2.0 mmol/L 05/23/2018 6:18 AM [facility] HISTORICAL RESULTS Hemoglobin 17.2 13.8 - 17.2 g/dL 05/23/2018 6:18 AM [facility] HISTORICAL RESULTS O2 Saturation 94.2 90.0 - 95.0 % 05/23/2018 6:18 AM FOOD SANITARIAN [facility] HISTORICAL RESULTS ABG Carboxyhemoglobin 1.0 <3.0 % 6:18 AM FOOD SANITARIAN [facility] HISTORICAL RESULTS ABG Methemoglobin 0.7 <2.0 % 018 6:18 AM FOOD SANITARIAN [facility] HISTORICAL RESULTS ABG O2 Content 22.7 17.6 - 24.3 Vol % 05/23/2018 6:18 AM FOOD SANITARIAN [facility] HISTORICAL RESULTS A-a O2 Difference 274.9(H) <=10.0 018 6:18 AM [facility] HISTORICAL RESULTS a/A Ratio 0.2(L) >=0.8 O2 Delivery Device BIPAP 2017 6:18 AM FOOD SANITARIAN [facility] HISTORICAL RESULTS FiO2 60.0 % Mode BiPAP 22/10 BG Specimen Comment [id number] 05/23 6:18 AM [facility] HISTORICAL RESULTS Calciner Feeder ID TRH 05/23/2018 6:05 AM FOOD SANITARIAN 05/23/2018 6:18 AM FOOD SANITARIAN Narrative [facility] HISTORICAL RESULTS - 05/23/2018 6:18 AM FOOD SANITARIAN Conditions Unspecified ?? Source Arterial Michelle Goodman MD LAB BLOOD ORDERABLES Final Result [facility] HISTORICAL RESULTS * XR Chest 1 View (05/23/2018 6:02 AM FOOD SANITARIAN) Anatomical Region Laterality Modality Body, Chest N/A Radiographic Wendy ging 05/23/2018 6:02 AM FOOD SANITARIAN Impressions 05/23/2018 6:49 AM FOOD SANITARIAN ?? 1.Slight improvement in moderate left basilar consolidation, likely reflecting cardiomegaly, pneumonia with small effusion. 2.Unchanged patchy mild right basilar opacities. THIS IS AN ELECTRONICALLY VERIFIED FINAL REPORT 05/23/2018 6:46 AM - Electronically signed by Mak FRANKLIN D: ??05/23/2018 6:46 AM T: Report ID: [id number] Reading Location: ??[id number] [EOD] Narrative 05/23/2018 6:49 AM FOOD SANITARIAN EXAM DESCRIPTION: ??Chest 1 View Portable REASON FOR STUDY: ??Respiratory distress on 05/13/2018. ??Extubated on 05/20/2018. ??Follow-up. TECHNIQUE: ??Frontal radiographic view of the chest acquired. COMPARISON: ??05/22/2018. FINDINGS: LUNGS/PLEURA: There has been slight improved aeration to the left lung with persistent moderate left basilar consolidation. ??No substantial interval change in mild patchy right basilar opacity. ??There is unchanged mild pulmonary edema. ??No definite pneumothorax. HEART/MEDIASTINUM: Heart size and mediastinal contours are stable. HARDWARE/LINES/TUBES: None. BONES: No acute findings. OTHER: No other significant finding. Procedure Note Provider, MD Richard - 10/12/2020 EXAM DESCRIPTION: Chest 1 View Portable REASON FOR STUDY: Respiratory distress on 05/13/2018. Extubated on 05/20/2018. Follow-up. TECHNIQUE: Frontal radiographic view of the chest acquired. COMPARISON: 05/22/2018. FINDINGS: LUNGS/PLEURA: There has been slight improved aeration to the left lungwith persistent moderate left basilar consolidation. No substantial interval change in mild patchy right basilar opacity. There is unchanged mild pulmonary edema. No definite pneumothorax. HEART/MEDIASTINUM: Heart size and mediastinal contours are stable. HARDWARE/LINES/TUBES: None. BONES: No acute findings. OTHER: No other significant finding. IMPRESSION: 1.Slight improvement in moderate left basilar consolidation, likelyreflecting cardiomegaly, pneumonia with small effusion. 2.Unchanged patchy mild right basilar opacities. THIS IS AN ELECTRONICALLY VERIFIED FINAL REPORT 05/23/2018 6:46 AM - Electronically signed by Mak Candelario M.D. AG T: Report ID: [id number] Reading Location: [id number] [EOD] us Michelle Goodman MD IMG XR PROCEDURES Final Res ult * Phosphorus (05/23/2018 4:12 AM FOOD SANITARIAN) Phosphorus 3.7 2.5 - 4.5 mg/dL 05/23/2018 5:10 AM FOOD SANITARIAN [facility] HISTORICAL RESULTS 05/23/2018 4:12 AM FOOD SANITARIAN 05/23/2018 4:44 AM FOOD SANITARIAN us Mckay Miller MD LAB BLOOD ORDERAB LES Final Result [facility] HISTORICAL RESULTS * (ABNORMAL) CBC with auto differential (05/23/2018 4:12 AM FOOD SANITARIAN) WBC 10.5(H) 3.8 - 9.9 X10 3/ul 05/23/2018 4:48 AM FOOD SANITARIAN [facility] HISTORICAL RESULTS RBC 5.23 4.30 - 5.80 x10 6/ul 05/23/2018 4:48 AM FOOD SANITARIAN [facility] HISTORICAL RESULTS Hemoglobin 16.3 13.0 - 17.5 g/dL 05/23/2018 4:48 AM FOOD SANITARIAN [facility] HISTORICAL RESULTS Hct 53.0(H) 38.9 - 50.3 % 05/23/2018 4:48 AM [facility] HISTORICAL RESULTS MCV 101.3(H) 81.3 - 96.4 fl 05/23/2018 4:48 AM FOOD SANITARIAN [facility] HISTORICAL RESULTS MCH 31.2 27.1 - 33.3 pg 05/23/2018 4:48 AM [facility] HISTORICAL RESULTS MCHC 30.8(L) 32.3 - 35.7 g/dl 05/23/2018 4:48 AM [facility] HISTORICAL RESULTS RDW 12.9 11.1 - 14.9 % 05/23/2018 4:48 AM [facility] HISTORICAL RESULTS Plt Count 126(L) 150 - 400 x10 3/ul 05/23/2018 4:48 AM [facility] HISTORICAL RESULTS MPV 12.3 9.1 - 12.3 fl 05/23/2018 4:48 AM [facility] HISTORICAL RESULTS Neut % 66.3 % Immature Gran % 0.9 % 8 4:48 AM [facility] HISTORICAL RESULTS Lymph % 18.1 % [place] % 13.9 % Eos % 0.6 % Baso % 0.2 % Absolute Neuts (auto) 7.0(H) 1.7 - 6.5 x10 3/ul Immature Gran # 0.1 0.0 - 0.1 x10 3/ul Absolute Lymphs (auto) 1.9 0.8 - 3.3 x10 3/ul Absolute Monos (auto) 1.5(H) 0.2 - 0.8 x10 3/ul Absolute Eos (auto) 0.1 0.0 - 0.5 x10 3/ul Absolute Basos (auto) 0.0 0.0 - 0.1 x10 3/ul Nucleat RBC Rel Count 0.0 #/100WBC Absolute Nucleated RBC 0.00 0.00 - 0.01 x10 3/ul Absolute Neutrophils 7000 200 - 8000 /ul 05/23/2018 4:12 AM [facility] 05/23/2018 4:44 AM [facility] [email or web address]] Mckay Miller MD LAB BLOOD ORDERAB LES Final Result [facility] HISTORICAL RESULTS * (ABNORMAL) Basic metabolic panel (05/23/2018 4:12 AM [facility]) Sodium 143 135 - 145 mmol/L Potassium 4.4 3.3 - 5.1 mmol/L Chloride 93(L) 96 - 108 mmol/L Carbon Dioxide 43(H) 22 - 32 mmol/L Anion Gap 7 7 - 16 Glucose 114(H) 70 - 100 mg/dL BUN 34(H) 6 - 20 mg/dL Creatinine 0.5 0.5 [...] or on dialysis @ Est GFR (Cockcroft-G) 213 ml/MIN 05/23/2018 5:10 AM [facility] HISTORICAL RESULTS Comment: Estimated GFR(Cockroft-Gault)is used to calculate patient medication dosage Calcium 8.8 8.6 - 10.0 mg/dL 05/23/2018 5:10 AM [facility] HISTORICAL RESULTS 05/23/2018 4:12 AM [facility] 05/23/2018 4:44 AM [facility] Mckay Miller MD LAB BLOOD ORDERAB LES Final Result [facility] HISTORICAL RESULTS * (ABNORMAL) Blood gas (includes COOX) (05/22/2018 6:17 AM [facility]) Specimen Type ARTERIAL 05/22/2018 7:35 AM [facility] HISTORICAL RESULTS Puncture Site RR 05/22/2018 7:35 AM [facility] HISTORICAL RESULTS Patient Temperature 37.0 C 05/22 7:35 AM [facility] HISTORICAL RESULTS pH 7.405 7.350 - 7.450 05/22/2018 7:35 AM [facility] HISTORICAL RESULTS pCO2 68.2(HH) 32.0 - 48.0 mmHg 05/22/2018 7:35 AM [facility] HISTORICAL RESULTS Comment: CRITICAL VALUE CALLED and REPEATED. ?? at:[id number] 05/22/18 by:Roseann Cunningham to:WILLIS BAPTISTE RN ?? pO2 74.3(L) 80.0 - 110.0 mmHg 05/22/2018 7:35 AM [facility] HISTORICAL RESULTS HCO3 41.8(H) 22.0 - 26.0 mmol/L Total CO2 43.9(H) 20.0 - 30.0 mmol/L 05/22/2018 7:35 AM FOOD SANITARIAN [facility] HISTORICAL RESULTS Base Excess 13.0(H) -2.0 - 2.0 mmol/L Hemoglobin 17.5(H) 13.8 - 17.2 g/dL 05/22/2018 7:35 AM FOOD SANITARIAN [facility] HISTORICAL RESULTS O2 Saturation 92.0 90.0 - 95.0 % ABG Carboxyhemoglobin 1.3 <3.0 % 05/22/2018 7:35 AM FOOD SANITARIAN [facility] HISTORICAL RESULTS ABG Methemoglobin 0.7 <2.0 % 018 7:35 AM [facility] HISTORICAL RESULTS ABG O2 Content 22.6 17.6 - 24.3 Vol % 05/22/2018 7:35 AM FOOD SANITARIAN [facility] HISTORICAL RESULTS O2 Delivery Device [id number] 2017 7:35 AM [facility] HISTORICAL RESULTS Liter Flow 15.0 BG Specimen Comment [id number] 05/22 7:35 AM [facility] HISTORICAL RESULTS Calciner Feeder ID [id number] BLOOD GAS COMMENTS SAMPLE ICED 05/22 7:35 AM [facility] HISTORICAL RESULTS 05/22/2018 6:17 AM FOOD SANITARIAN 05/22/2018 6:54 AM FOOD SANITARIAN Narrative [facility] HISTORICAL RESULTS - 05/22/2018 7:35 AM FOOD SANITARIAN Conditions Unspecified ?? Source Arterial Michelle Goodman MD LAB BLOOD ORDERABLES Final Result [facility] HISTORICAL RESULTS * XR Chest 1 View (05/22/2018 6:02 AM FOOD SANITARIAN) Anatomical Region Laterality Modality Body, Chest N/A Radiographic Wendy ging 05/22/2018 6:02 AM FOOD SANITARIAN Impressions 05/22/2018 6:41 AM FOOD SANITARIAN ??Worsening pulmonary vascular congestion and worsening bilateral infiltrates and/or atelectasis. THIS IS AN ELECTRONICALLY VERIFIED FINAL REPORT 05/22/2018 6:38 AM - Electronically signed by Aureliano Dyer M.D. MA D: ??05/22/2018 6:38 AM T: Report ID: [id number] Reading Location: ??[id number] [EOD] Narrative 05/22/2018 6:41 AM FOOD SANITARIAN EXAM DESCRIPTION: ??Chest 1 View Portable REASON FOR STUDY: Pt to er 05/12 for SOB and hip pain. Resp distress 05/13; 05/20 extubated / follow up today for progress TECHNIQUE: ??Frontal radiographic view of the chest acquired. COMPARISON: ??Chest x-ray May 21, 2018 FINDINGS: LUNGS/PLEURA: Interval worsening right base infiltrate and/or atelectasis. ?? Worsening left midlung infiltrate and/or atelectasis. ??Left base atelectasis and/or infiltrate unchanged. ??A moderate left pleural effusion is suspected. HEART/MEDIASTINUM: Cardiomegaly and worsening pulmonary vascular congestion. HARDWARE/LINES/TUBES: None. BONES: No acute findings. OTHER: No other significant finding. Procedure Note Provider, MD Richadr - 10/12/2020 EXAM DESCRIPTION: Chest 1 View Portable REASON FOR STUDY: Pt to er 05/12 for SOB and hip pain. Resp distress 05/20 extubated / follow up today for progress TECHNIQUE: Frontal radiographic view of the chest acquired. COMPARISON: Chest x-ray May 21, 2018 FINDINGS: LUNGS/PLEURA: Interval worsening right base infiltrate and/or atelectasis. Worsening left midlung infiltrate and/or atelectasis. Left baseatelectasis and/or infiltrate unchanged. A moderate left pleural effusion issuspected. HEART/MEDIASTINUM: Cardiomegaly and worsening pulmonary vascularcongestion. HARDWARE/LINES/TUBES: None. BONES: No acute findings. OTHER: No other significant finding. IMPRESSION: Worsening pulmonary vascular congestion and worseningbilateral infiltrates and/or atelectasis. THIS IS AN ELECTRONICALLY VERIFIED FINAL REPORT 05/22/2018 6:38 AM - Electronically signed by Aureliano Dyer M.D., MA T: Report ID: [id number] Reading Location: [id number] [EOD] us Mihcelle Goodman MD IMG XR PROCEDURES Final Res ult * (ABNORMAL) CBC with auto differential (05/22/2018 4:31 AM FOOD SANITARIAN) WBC 10.7(H) 3.8 - 9.9 X10 3/ul 05/22/2018 4:40 AM FOOD SANITARIAN [facility] HISTORICAL RESULTS RBC 5.27 4.30 - 5.80 x10 6/ul 05/22/2018 4:40 AM FOOD SANITARIAN [facility] HISTORICAL RESULTS Hemoglobin 16.6 13.0 - 17.5 g/dL 05/22/2018 4:40 AM FOOD SANITARIAN [facility] HISTORICAL RESULTS Hct 52.5(H) 38.9 - 50.3 % 05/22/2018 4:40 AM [facility] HISTORICAL RESULTS MCV 99.6(H) 81.3 - 96.4 fl 05/22/2018 4:40 AM FOOD SANITARIAN [facility] HISTORICAL RESULTS MCH 31.5 27.1 - 33.3 pg 05/22/2018 4:40 AM FOOD SANITARIAN [facility] HISTORICAL RESULTS MCHC 31.6(L) 32.3 - 35.7 g/dl 05/22/2018 4:40 AM [facility] HISTORICAL RESULTS RDW 13.1 11.1 - 14.9 % 05/22/2018 4:40 AM [facility] HISTORICAL RESULTS Plt Count 109(L) 150 - 400 x10 3/ul 05/22/2018 4:40 AM FOOD SANITARIAN [facility] HISTORICAL RESULTS MPV 13.0(H) 9.1 - 12.3 fl 05/22/2018 4:40 AM FOOD SANITARIAN [facility] HISTORICAL RESULTS Neut % 71.1 % 05/22/2018 4:40 AM FOOD SANITARIAN [facility] HISTORICAL RESULTS Immature Gran % 1.0 % 8 4:40 AM FOOD SANITARIAN [facility] HISTORICAL RESULTS Lymph % 12.9 % 05/22/2018 4:40 AM FOOD SANITARIAN [facility] HISTORICAL RESULTS [place] % 14.7 % Eos % 0.2 % Baso % 0.1 % Absolute Neuts (auto) 7.6(H) 1.7 - 6.5 x10 3/ul Immature Gran # 0.1 0.0 - 0.1 x10 3/ul Absolute Lymphs (auto) 1.4 0.8 - 3.3 x10 3/ul Absolute Monos (auto) 1.6(H) 0.2 - 0.8 x10 3/ul Absolute Eos (auto) 0.0 0.0 - 0.5 x10 3/ul 05/22/2018 4:40 AM FOOD SANITARIAN [facility] HISTORICAL RESULTS Absolute Basos (auto) 0.0 0.0 - 0.1 x10 3/ul Nucleat RBC Rel Count 0.0 #/100WBC Absolute Nucleated RBC 0.00 0.00 - 0.01 x10 3/ul Absolute Neutrophils 7600 200 - 8000 /ul 05/22/2018 4:31 AM FOOD SANITARIAN 05/22/2018 4:37 AM [facility] [[email or web address]] us Trung Mcallister DO LAB BLOOD ORDERABLES Final Result [facility] HISTORICAL RESULTS * (ABNORMAL) Basic metabolic panel (05/22/2018 4:15 AM FOOD SANITARIAN) Sodium 142 135 - 145 mmol/L 05/22/2018 5:[address] [facility] HISTORICAL RESULTS Potassium 3.8 3.3 - 5.1 mmol/L 05/22/2018 5:14 AM [facility] RESULTS Chloride 89(L) 96 - 108 mmol/L 05/22/2018 5:14 AM [facility] Carbon Dioxide 41(H) 22 - 32 mmol/L 05/22/2018 5:14 AM [facility]IST[facility]ULTS Anion Gap 12 7 - 16 05/22/2018 5:[address] [facility] [employer] [facility] H[facility]OR[facility] RESULTS Glucose 97 70 - 100 mg/dL 05/22/2018 5:14 AM FOOD SANITARIAN [facility] [employer] [facility] HISTORICAL RESULTS BUN 40(H) 6 - 20 mg/dL 05/22/2018 5:14 AM [facility] HISTORICAL RESULTS Creatinine 0.4(L) 0.5 - 1.3 mg/dL 05/22/2018 5:15 AM [employer] [facility] [employer] [facility] HISTORICAL RESULTS Comment: Above result is affected by increased bilirubin. NOTE: Estimated GFR (Cockroft-Gault) will NOT be calculated unless patient Height and Weight were entered. Also, Kidney Disease Stage (GFR) and Estimated GFR (Cockroft-Gault) will NOT be calculated if Creatinine result is <0.2. Kidney Disease Stage > 90 mL/MIN 05/22/2018 5:14 AM [employer] [facility] [employer] [facility] HISTORICAL RESULTS Comment: NOTE; ??The GFR is [...] or on dialysis @ Est GFR (Cockcroft-G) 266 ml/MIN 05/22/2018 5:14 AM FOOD SANITARIAN [facility] HISTORICAL RESULTS Comment: Estimated GFR(Cockroft-Gault)is used to calculate patient medication dosage Calcium 9.1 8.6 - 10.0 mg/dL 05/22/2018 5:14 AM FOOD SANITARIAN [facility] HISTORICAL RESULTS 05/22/2018 4:15 AM FOOD SANITARIAN 05/22/2018 4:37 AM FOOD SANITARIAN Michelle Goodman MD LAB BLOOD ORDERABLES Final Result Performing Organization Address [facility] de Phone Number [facility] HISTORICAL RESULTS * Phosphorus (05/22/2018 4:15 AM FOOD SANITARIAN) Phosphorus 3.9 2.5 - 4.5 mg/dL 05/22/2018 5:14 AM FOOD SANITARIAN [facility] HISTORICAL RESULTS 05/22/2018 4:15 AM FOOD SANITARIAN 05/22/2018 4:37 AM FOOD SANITARIAN Michelle Goodman MD LAB BLOOD ORDERABLES Final Result Performing Organization Address [facility] de Phone Number [facility] HISTORICAL RESULTS * XR Chest 1 View (05/21/2018 6:02 AM FOOD SANITARIAN) Anatomical Region Laterality Modality Body, Chest N/A Radiographic Wendy ging 05/21/2018 6:02 AM FOOD SANITARIAN Impressions 05/21/2018 7:34 AM FOOD SANITARIAN ?? 1.Unchanged moderate diffuse interstitial and airspace opacities, likely pulmonary edema. 2.Unchanged mild left retrocardiac atelectasis with small effusion. 3.Interval extubation. THIS IS AN ELECTRONICALLY VERIFIED FINAL REPORT 05/21/2018 7:31 AM - Electronically signed by Mak Candelario M.D. AG D: ??05/21/2018 7:31 AM T: Report ID: [id number] Reading Location: ??[id number] [EOD] Narrative 05/21/2018 7:34 AM FOOD SANITARIAN EXAM DESCRIPTION: ??Chest 1 View Portable REASON FOR STUDY: ??Respiratory distress on 05/13/2018. ??Extubated yesterday. TECHNIQUE: ??Frontal radiographic view of the chest acquired. COMPARISON: ??05/20/2018. FINDINGS: LUNGS/PLEURA: Moderate diffuse interstitial and airspace opacities are unchanged. ??Moderate left retrocardiac opacity is unchanged, likely atelectasis with small effusion. ??No pneumothorax. HEART/MEDIASTINUM: Heart size and mediastinal contours are stable. HARDWARE/LINES/TUBES: . endotracheal tube and nasogastric tubes have been removed. BONES: No acute findings. OTHER: No other significant finding. Procedure Note Provider, MD Richard - 10/12/2020 EXAM DESCRIPTION: Chest 1 View Portable REASON FOR STUDY: Respiratory distress on 05/13/2018. Extubatedyesterday. TECHNIQUE: Frontal radiographic view of the chest acquired. COMPARISON: 05/20/2018. FINDINGS: LUNGS/PLEURA: Moderate diffuse interstitial and airspace opacities are unchanged. Moderate left retrocardiac opacity is unchanged, likely atelectasis with small effusion. No pneumothorax. HEART/MEDIASTINUM: Heart size and mediastinal contours are stable. HARDWARE/LINES/TUBES: . endotracheal tube and nasogastric tubes have been removed. BONES: No acute findings. OTHER: No other significant finding. IMPRESSION: 1.Unchanged moderate diffuse interstitial and airspace opacities, likely pulmonary edema. 2.Unchanged mild left retrocardiac atelectasis with small effusion. 3.Interval extubation. THIS IS AN ELECTRONICALLY VERIFIED FINAL REPORT 05/21/2018 7:31 AM - Electronically signed by Mak Candelario M.D. AG T: Report ID: [id number] Reading Location: [id number] [EOD] Michelle Goodman MD IMG XR PROCEDURES Final Res ult * Phosphorus (05/21/2018 4:28 AM FOOD SANITARIAN) Phosphorus 3.5 2.5 - 4.5 mg/dL 05/21/2018 4:28 AM FOOD SANITARIAN 05/21/2018 4:44 AM FOOD SANITARIAN us Michelle Goodman MD LAB BLOOD ORDERABLES Final Result [facility] HISTORICAL RESULTS * Magnesium (05/21/2018 4:28 AM FOOD SANITARIAN) Magnesium 2.0 1.6 - 2.6 mg/dL Comment:Magnesium sulfate th erapy: 3.0-9.1 mg/dL 05/21/2018 4:28 AM FOOD SANITARIAN 05/21/2018 4:44 AM FOOD SANITARIAN us Michelle Goodman MD LAB BLOOD ORDERABLES Final Result Performing Organization Address [facility] Co de Phone Number [facility] HISTORICAL RESULTS * (ABNORMAL) Comprehensive metabolic panel (05/21/2018 4:28 AM FOOD SANITARIAN) Sodium 142 135 - 145 mmol/L Potassium 3.8 3.3 - 5.1 mmol/L Chloride 91(L) 96 - 108 mmol/L Carbon Dioxide 43(H) 22 - 32 mmol/L Anion Gap 8 7 - 16 Glucose 100 70 - 100 mg/dL BUN 40(H) 6 - 20 mg/dL Creatinine 0.4(L) 0.5 - 1.3 mg/dL Comment: Above result is affected by increased bilirubin. NOTE: Estimated GFR (Cockroft-Gault) will NOT be calculated unless patient Height and Weight were entered. Also, Kidney Disease Stage (GFR) and Estimated GFR (Cockroft-Gault) will NOT be calculated if Creatinine result is <0.2. Kidney Disease Stage > 90 mL/MIN 05/21/2018 5:22 AM [facility] HISTORICAL RESULTS Comment: NOTE; ??The GFR is [...] or on dialysis @ Est GFR (Cockcroft-G) 273 ml/MIN 05/21/2018 5:22 AM [facility] HISTORICAL RESULTS Comment: Estimated GFR(Cockroft-Gault)is used to calculate patient medication dosage Calcium 8.9 8.6 - 10.0 mg/dL 05/21/2018 5:22 AM [facility] HISTORICAL RESULTS Total Protein 5.6(L) 6.4 - 8.3 g/dL 05/21/2018 5:22 AM [facility] HISTORICAL RESULTS Albumin 3.1(L) 3.5 - 5.2 g/dL 05/21/2018 5:22 AM [facility] HISTORICAL RESULTS Globulin 2.5 2.3 - 3.5 gm/dL 05/21/2018 5:22 AM [facility] HISTORICAL RESULTS Albumin/Globulin Ratio 1.2 1.1 - 1.8 05/21/2018 5:22 AM FOOD SANITARIAN [facility] [employer] HISTORICAL RESULTS Total Bilirubin 2.0(H) 0.0 - 1.2 mg/dL 05/21/2018 5:22 AM FOOD SANITARIAN [facility] [employer] HISTORICAL RESULTS AST 17 0 - 40 U/L 05/21/2018 5:22 AM FOOD SANITARIAN [facility] [employer] HISTORICAL RESULTS ALT 34 0 - 41 U/L 05/21/2018 5:22 AM [facility]IT[facility] HISTORICAL RESULTS Alkaline Phosphatase 44 40 - 129 U/L 05/21/2018 5:[address] [facility] HISTORICAL RESULTS 05/21/2018 4:28 AM FOOD SANITARIAN 05/21/2018 4:44 AM FOOD SANITARIAN Michelle Goodman MD LAB BLOOD ORDERABLES Final Result [facility] HISTORICAL RESULTS * (ABNORMAL) CBC with auto differential (05/21/2018 4:28 AM FOOD SANITARIAN) WBC 15.1(H) 3.8 - 9.9 X10 3/ul 05/21/2018 4:[address] [facility] [employer] HISTORICAL RESULTS RBC 5.53 4.30 - 5.80 x10 6/ul 05/21/2018 4:[address] [facility] [employer] HISTORICAL RESULTS Hemoglobin 17.4 13.0 - 17.5 g/dL 05/21/2018 4:[address] [facility] [employer] HISTORICAL RESULTS Hct 54.7(H) 38.9 - 50.3 % 05/21/2018 4:[address] [facility] [employer] HISTORICAL RESULTS MCV 98.9(H) 81.3 - 96.4 fl 05/21/2018 4:[address] [facility] [employer] HISTORICAL RESULTS MCH 31.5 27.1 - 33.3 pg 05/21/2018 4:[address] [facility] [employer] HISTORICAL RESULTS MCHC 31.8(L) 32.3 - 35.7 g/dl 05/21/2018 4:[address] [facility] [employer] HISTORICAL RESULTS RDW 13.2 11.1 - 14.9 % 05/21/2018 4:[address] [facility] HISTORICAL RESULTS Plt Count 115(L) 150 - 400 x10 3/ul MPV 12.5(H) 9.1 - 12.3 fl Neut % 73.6 % Immature Gran % 1.0 % 8 4:48 AM [facility] HISTORICAL RESULTS Lymph % 10.6 % [place] % 14.3 % Eos % 0.3 % 05/21/2018 4:[address] [facility] [employer] [facility] HISTORICAL RESULTS Baso % 0.2 % Absolute Neuts (auto) 11.1(H) 1.7 - 6.5 x10 3/ul Immature Gran # 0.2(H) 0.0 - 0.1 x10 3/ul Absolute Lymphs (auto) 1.6 0.8 - 3.3 x10 3/ul Absolute Monos (auto) 2.2(H) 0.2 - 0.8 x10 3/ul Absolute Eos (auto) 0.0 0.0 - 0.5 x10 3/ul 05/21/2018 4:48 AM [employer] [facility] HISTORICAL RESULTS Absolute Basos (auto) 0.0 0.0 - 0.1 x10 3/ul Nucleat RBC Rel Count 0.0 #/100WBC Absolute Nucleated RBC 0.00 0.00 - 0.01 x10 3/ul Absolute Neutrophils 95151(H) 200 - 8000 /ul 05/21/2018 4:[address] [facility] [employer] [facility] HISTORICAL RESULTS 05/21/2018 4:28 AM FOOD SANITARIAN 05/21/2018 4:44 AM FOOD SANITARIAN Michelle Goodman MD LAB BLOOD ORDERABLES Final Result [facility] HISTORICAL RESULTS * (ABNORMAL) Blood gas (includes COOX) (05/20/2018 3:40 PM FOOD SANITARIAN) Specimen Type ARTERIAL 05/20/2018 3:[address] [facility] HISTORICAL RESULTS Puncture Site ART LINE 05/20/2018 3:49 PM FOOD SANITARIAN [facility] Patient Temperature 37.0 C 05/20 3:49 PM [facility] HISTORICAL RESULTS pH 7.468(H) 7.350 - 7.450 pCO2 58.5(H) 32.0 - 48.0 mmHg pO2 70.4(L) 80.0 - 110.0 mmHg HCO3 41.9(H) 22.0 - 26.0 mmol/L Total CO2 43.7(H) 20.0 - 30.0 mmol/L Base Excess 14.4(H) -2.0 - 2.0 mmol/L Hemoglobin 18.0(H) 13.8 - 17.2 g/dL 05/20/2018 3:[address] [facility] H[facility]ULTS O2 Saturation 92.3 90.0 - 95.0 % 05/20/2018 3:[address] [facility] [employer] [facility] HISTORICAL RESULTS ABG Carboxyhemoglobin 1.2 <3.0 % 3:[address] [facility] [employer] [facility] HISTORICAL RESULTS ABG Methemoglobin 0.8 <2.0 % 018 3:[address] [facility] [employer] [facility] HISTORICAL RESULTS ABG O2 Content 23.3 17.6 - 24.3 Vol % A-a O2 Difference 278.9(H) <=10.0 018 3:49 PM [facility] HISTORICAL RESULTS a/A Ratio 0.2(L) >=0.8 05/20/2018 3:49 PM FOOD SANITARIAN [facility] HISTORICAL RESULTS O2 Delivery Device BIPAP 2017 3:49 PM FOOD SANITARIAN [facility] HISTORICAL RESULTS FiO2 60.0 % 05/20/2018 3:49 PM FOOD SANITARIAN [facility] HISTORICAL RESULTS Mechanical Rate 16 8 3:49 PM FOOD SANITARIAN [facility] HISTORICAL RESULTS Mode BiPAP 18/8 BG Specimen Comment [id number] 05/20 3:49 PM [facility] HISTORICAL RESULTS Calciner Feeder ID [email or web address] 05/20/2018 3:40 PM FOOD SANITARIAN 05/20/2018 3:49 PM FOOD SANITARIAN Narrative [facility] HISTORICAL RESULTS - 05/20/2018 3:49 PM FOOD SANITARIAN Conditions BIPAP ?? Source Arterial Mckay Miller MD LAB BLOOD ORDERAB LES Final Result [facility] HISTORICAL RESULTS * (ABNORMAL) Blood gas (includes COOX) (05/20/2018 12:34 PM FOOD SANITARIAN) Specimen Type ARTERIAL Puncture Site ART LINE Patient Temperature 37.0 C 05/20 12:41 PM [facility] HISTORICAL RESULTS pH 7.435 7.350 - 7.450 pCO2 66.4(H) 32.0 - 48.0 mmHg pO2 84.7 80.0 - 110.0 mmHg HCO3 43.8(H) 22.0 - 26.0 mmol/L Total CO2 45.8(H) 20.0 - 30.0 mmol/L Base Excess 14.9(H) -2.0 - 2.0 mmol/L Hemoglobin 18.3(H) 13.8 - 17.2 g/dL O2 Saturation 94.3 90.0 - 95.0 % ABG Carboxyhemoglobin 1.1 <3.0 % 12:41 PM [facility] HISTORICAL RESULTS ABG Methemoglobin 0.8 <2.0 % 018 12:41 PM [facility] HISTORICAL RESULTS ABG O2 Content 24.2 17.6 - 24.3 Vol % A-a O2 Difference 255.3(H) <=10.0 018 12:41 PM [facility] HISTORICAL RESULTS a/A Ratio 0.3(L) >=0.8 O2 Delivery Device [id number] 2017 12:41 PM [facility] HISTORICAL RESULTS FiO2 60.0 % Vent Mode CPAP Pressure Support 5 05/20/20 18 12:41 PM [facility] HISTORICAL RESULTS PEEP 5 BG Specimen Comment [id number] 05/20 12:41 PM [facility] HISTORICAL RESULTS [employer] Feeder ID [email or web address] 05/20/2018 12:3 4 PM FOOD SANITARIAN 05/20/2018 12:40 PM [facility] [[email or web address]] Jiggar Rashmikant Hindia DO LAB BLOOD ORDERABLES Final Result [facility] HISTORICAL RESULTS * (ABNORMAL) Blood gas (includes COOX) (05/20/2018 6:15 AM FOOD SANITARIAN) Specimen Type ARTERIAL 05/20/2018 6:35 AM FOOD SANITARIAN [facility] [employer] HISTORICAL RESULTS Puncture Site ART LINE 05/20/2018 6:35 AM FOOD SANITARIAN [facility] HISTORICAL RESULTS Patient Temperature 37.0 C 05/20 6:35 AM FOOD SANITARIAN [facility] HISTORICAL RESULTS pH 7.460(H) 7.350 - 7.450 pCO2 59.5(H) 32.0 - 48.0 mmHg 05/20/2018 6:35 AM FOOD SANITARIAN [facility] HISTORICAL RESULTS pO2 70.4(L) 80.0 - 110.0 mmHg 05/20/2018 6:35 AM FOOD SANITARIAN [facility] HISTORICAL RESULTS HCO3 41.8(H) 22.0 - 26.0 mmol/L 05/20/2018 6:35 AM FOOD SANITARIAN [facility] HISTORICAL RESULTS Total CO2 43.6(H) 20.0 - 30.0 mmol/L Base Excess 14.1(H) -2.0 - 2.0 mmol/L 05/20/2018 6:35 AM FOOD SANITARIAN [facility] HISTORICAL RESULTS Hemoglobin 18.4(H) 13.8 - 17.2 g/dL O2 Saturation 92.4 90.0 - 95.0 % ABG Carboxyhemoglobin 1.1 <3.0 % ABG Methemoglobin 0.7 <2.0 % 018 6:35 AM [facility] HISTORICAL RESULTS ABG O2 Content 23.9 17.6 - 24.3 Vol % A-a O2 Difference 278.8(H) <=10.0 018 6:35 AM [facility] HISTORICAL RESULTS a/A Ratio 0.2(L) >=0.8 05/20/2018 6:35 AM FOOD SANITARIAN [facility] HISTORICAL RESULTS O2 Delivery Device [id number] 2017 6:35 AM FOOD SANITARIAN [facility] HISTORICAL RESULTS FiO2 60.0 % 05/20/2018 6:35 AM FOOD SANITARIAN [facility] HISTORICAL RESULTS Tidal Volume 400.0 05/20/2018 6:35 AM FOOD SANITARIAN [facility] HISTORICAL RESULTS Vent Mode AC 05/20/2018 6:35 AM FOOD SANITARIAN [facility] HISTORICAL RESULTS Mechanical Rate 20 8 6:35 AM FOOD SANITARIAN [facility] HISTORICAL RESULTS PEEP 12 BG Specimen Comment [id number] 05/20 6:35 AM [facility] HISTORICAL RESULTS Calciner Feeder ID PAH BLOOD GAS COMMENTS Sample Iced 05/20/2018 6:15 AM FOOD SANITARIAN 05/20/2018 6:27 AM FOOD SANITARIAN Narrative [facility] HISTORICAL RESULTS - 05/20/2018 6:35 AM FOOD SANITARIAN Conditions Vent ?? Source Arterial Michelle Goodman MD LAB BLOOD ORDERABLES Final Result [facility] HISTORICAL RESULTS * XR Chest 1 View (05/20/2018 6:02 AM FOOD SANITARIAN) Anatomical Region Laterality Modality Body, Chest N/A Radiographic Wendy ging 05/20/2018 6:02 AM FOOD SANITARIAN Impressions 05/20/2018 7:12 AM FOOD SANITARIAN ?? 1.Interval increase in moderate bilateral interstitial and airspace opacities, right greater than left, likely pulmonary edema. 2.Slight increase in left retrocardiac opacity, likely atelectasis with associated small effusion. THIS IS AN ELECTRONICALLY VERIFIED FINAL REPORT 05/20/2018 7:08 AM - Electronically signed by Mak Candelario M.D. AG D: ??05/20/2018 7:08 AM T: Report ID: [id number] Reading Location: ??[id number] [EOD] Narrative 05/20/2018 7:12 AM FOOD SANITARIAN EXAM DESCRIPTION: ??Chest 1 View Portable REASON FOR STUDY: ??Respiratory distress since 05/13/2018. ??Intubated. TECHNIQUE: ??Frontal radiographic view of the chest acquired. COMPARISON: ??05/19/2018 FINDINGS: LUNGS/PLEURA: Interval increase in moderate bilateral airspace and interstitial opacities, right greater than left. ??Increased left retrocardiac opacity is seen, likely represent atelectasis with a small effusion. ??Mild right basilar atelectasis is seen. ??No definite pneumothorax. HEART/MEDIASTINUM: Moderate cardiomegaly is stable. HARDWARE/LINES/TUBES: Endotracheal tube terminates 4.7 cm above the ezequiel. ?? Nasogastric tube courses below the left hemidiaphragm with distal tip at least within the stomach. BONES: No acute findings. OTHER: No other significant finding. Procedure Note Provider, MD Richard - 10/12/2020 EXAM DESCRIPTION: Chest 1 View Portable REASON FOR STUDY: Respiratory distress since 05/13/2018. Intubated. TECHNIQUE: Frontal radiographic view of the chest acquired. COMPARISON: 05/19/2018 FINDINGS: LUNGS/PLEURA: Interval increase in moderate bilateral airspace and interstitial opacities, right greater than left. Increased leftretrocardiac opacity is seen, likely represent atelectasis with a small effusion. Mild right basilar atelectasis is seen. No definite pneumothorax. HEART/MEDIASTINUM: Moderate cardiomegaly is stable. HARDWARE/LINES/TUBES: Endotracheal tube terminates 4.7 cm above thecarina. Nasogastric tube courses below the left hemidiaphragm with distal tip atleast within the stomach. BONES: No acute findings. OTHER: No other significant finding. IMPRESSION: 1.Interval increase in moderate bilateral interstitial and airspaceopacities, right greater than left, likely pulmonary edema. 2.Slight increase in left retrocardiac opacity, likely atelectasis with associated small effusion. THIS IS AN ELECTRONICALLY VERIFIED FINAL REPORT 05/20/2018 7:08 AM - Electronically signed by Mak Candelario M.D. AG T: Report ID: [id number] Reading Location: [id number] [EOD] Michelle Goodman MD IMG XR PROCEDURES Final Res ult * Triglycerides (05/20/2018 4:20 AM FOOD SANITARIAN) Triglycerides 136 0 - 149 mg/dL 05/20/2018 5:38 AM FOOD SANITARIAN [facility] HISTORICAL RESULTS Comment: National Lipid Association/NCEP Guidelines: ?? Normal ?< 150 mg/dL ?? Borderline high ?? 150-199 mg/dL ?? High ?200-499 mg/dL ?? Very High ? >=500 mg/dL 05/20/2018 4:20 AM FOOD SANITARIAN 05/20/2018 5:03 AM FOOD SANITARIAN Michelle Goodman MD LAB BLOOD ORDERABLES Final Result Performing Organization Address [facility]/ZIP Co de Phone Number [facility] HISTORICAL RESULTS * Phosphorus (05/20/2018 4:20 AM FOOD SANITARIAN) Phosphorus 3.1 2.5 - 4.5 mg/dL 05/20/2018 5:38 AM FOOD SANITARIAN [facility] HISTORICAL RESULTS 05/20/2018 4:20 AM FOOD SANITARIAN 05/20/2018 5:03 AM FOOD SANITARIAN Michelle Goodman MD LAB BLOOD ORDERABLES Final Result [facility] HISTORICAL RESULTS * Magnesium (05/20/2018 4:20 AM FOOD SANITARIAN) Magnesium 2.2 1.6 - 2.6 mg/dL 05/20/2018 5:38 AM FOOD SANITARIAN [facility] HISTORICAL RESULTS Comment:Magnesium sulfate th erapy: 3.0-9.1 mg/dL 05/20/2018 4:20 AM FOOD SANITARIAN 05/20/2018 5:03 AM FOOD SANITARIAN Michelle Goodman MD LAB BLOOD ORDERABLES Final Result [facility] HISTORICAL RESULTS * (ABNORMAL) Comprehensive metabolic panel (05/20/2018 4:20 AM FOOD SANITARIAN) Sodium 136 135 - 145 mmol/L 05/20/2018 5:38 AM FOOD SANITARIAN [facility] HISTORICAL RESULTS Potassium 4.2 3.3 - 5.1 mmol/L 05/20/2018 5:38 AM FOOD SANITARIAN [facility] HISTORICAL RESULTS Chloride 90(L) 96 - 108 mmol/L Carbon Dioxide 37(H) 22 - 32 mmol/L Anion Gap 9 7 - 16 Glucose 158(H) 70 - 100 mg/dL BUN 37(H) 6 - 20 mg/dL Creatinine 0.3(L) 0.5 - 1.3 mg/dL Comment: NOTE: Estimated [...] or on dialysis @ Est GFR (Cockcroft-G) 364 ml/MIN 05/20/2018 5:[address] [facility] [employer] [facility] HISTORICAL RESULTS Comment: Estimated GFR(Cockroft-Gault)is used to calculate patient medication dosage Calcium 8.5(L) 8.6 - 10.0 mg/dL 05/20/2018 5:38 AM [facility] HISTORICAL RESULTS Total Protein 5.5(L) 6.4 - 8.3 g/dL Albumin 3.1(L) 3.5 - 5.2 g/dL Globulin 2.4 2.3 - 3.5 gm/dL Albumin/Globulin Ratio 1.3 1.1 - 1.8 Total Bilirubin 1.2 0.0 - 1.2 mg/dL AST 19 0 - 40 U/L ALT 40 0 - 41 U/L Alkaline Phosphatase 44 40 - 129 U/L 05/20/2018 4:20 AM FOOD SANITARIAN 05/20/2018 5:03 AM FOOD SANITARIAN us Michelle Goodman MD LAB BLOOD ORDERABLES Final Result [facility] HISTORICAL RESULTS * (ABNORMAL) CBC with auto differential (05/20/2018 4:20 AM FOOD SANITARIAN) WBC 14.6(H) 3.8 - 9.9 X10 3/ul 05/20/2018 5:13 AM [employer] HISTORICAL RESULTS RBC 5.34 4.30 - 5.80 x10 6/ul 05/20/2018 5:13 AM [facility] HISTORICAL RESULTS Hemoglobin 17.6(H) 13.0 - 17.5 g/dL 05/20/2018 5:13 AM [employer] HISTORICAL RESULTS Hct 54.4(H) 38.9 - 50.3 % 05/20/2018 5:13 AM [employer] HISTORICAL RESULTS MCV 101.9(H) 81.3 - 96.4 fl 05/20/2018 5:13 AM [facility] HISTORICAL RESULTS MCH 33.0 27.1 - 33.3 pg 05/20/2018 5:13 AM [facility] HISTORICAL RESULTS MCHC 32.4 32.3 - 35.7 g/dl 05/20/2018 5:13 AM [facility] HISTORICAL RESULTS RDW 13.4 11.1 - 14.9 % 05/20/2018 5:13 AM [facility] HISTORICAL RESULTS Plt Count 96(L) 150 - 400 x10 3/ul 05/20/2018 5:13 AM [facility] HISTORICAL RESULTS MPV 13.1(H) 9.1 - 12.3 fl 05/20/2018 5:13 AM [facility] HISTORICAL RESULTS Neut % 85.6 % 05/20/2018 5:13 AM [facility] HISTORICAL RESULTS Immature Gran % 0.7 % 8 5:13 AM [facility] HISTORICAL RESULTS Lymph % 4.4 % 05/20/2018 5:13 AM [facility] HISTORICAL RESULTS W[place]all % 9.0 % 05/20/2018 5:13 AM [facility] HISTORICAL RESULTS Eos % 0.1 % 05/20/2018 5:13 AM [facility] HISTORICAL RESULTS Baso % 0.2 % 05/20/2018 5:13 AM [facility] HISTORICAL RESULTS Absolute Neuts (auto) 12.5(H) 1.7 - 6.5 x10 3/ul Immature Gran # 0.1 0.0 - 0.1 x10 3/ul 05/20/2018 5:13 AM FOOD SANITARIAN [facility] HISTORICAL RESULTS Absolute Lymphs (auto) 0.6(L) 0.8 - 3.3 x10 3/ul Absolute Monos (auto) 1.3(H) 0.2 - 0.8 x10 3/ul 05/20/2018 5:13 AM FOOD SANITARIAN [facility] HISTORICAL RESULTS Absolute Eos (auto) 0.0 0.0 - 0.5 x10 3/ul 05/20/2018 5:13 AM FOOD SANITARIAN [facility] HISTORICAL RESULTS Absolute Basos (auto) 0.0 0.0 - 0.1 x10 3/ul 05/20/2018 5:13 AM FOOD SANITARIAN [facility] HISTORICAL RESULTS Nucleat RBC Rel Count 0.0 #/100WBC 05/20/2018 5:13 AM FOOD SANITARIAN [facility] HISTORICAL RESULTS Absolute Nucleated RBC 0.00 0.00 - 0.01 x10 3/ul Absolute Neutrophils 15492(H) 200 - 8000 /ul 05/20/2018 4:20 AM FOOD SANITARIAN 05/20/2018 5:03 AM FOOD SANITARIAN Michelle Goodman MD LAB BLOOD ORDERABLES Final Result [facility] HISTORICAL RESULTS * XR Chest 1 View (05/19/2018 6:02 AM FOOD SANITARIAN) Anatomical Region Laterality Modality Body, Chest N/A Radiographic Wendy ging 05/19/2018 6:02 AM FOOD SANITARIAN Impressions 05/19/2018 7:13 AM FOOD SANITARIAN ??Stable bibasilar infiltrate and/or atelectasis, left side greater than right. ??Probable small bilateral pleural effusions. THIS IS AN ELECTRONICALLY VERIFIED FINAL REPORT 05/19/2018 7:10 AM - Electronically signed by Aureliano A. Gomez Dyer M.D., MA D: ??05/19/2018 7:10 AM T: Report ID: [id number] Reading Location: ??[id number] [EOD] Narrative 05/19/2018 7:13 AM FOOD SANITARIAN EXAM DESCRIPTION: ??Chest 1 View Portable REASON FOR STUDY: ??follow up cxr for progress on bilat effusions TECHNIQUE: ??Frontal radiographic view of the chest acquired. COMPARISON: ??Chest x-ray May 18, 2018 FINDINGS: LUNGS/PLEURA: No change in bibasilar infiltrate and/or atelectasis, left side greater than right. ??There are probable small bilateral pleural effusions. HEART/MEDIASTINUM: Heart size is normal. ??Pulmonary vascular congestion unchanged.. HARDWARE/LINES/TUBES: ET tube tip projects below the thoracic inlet and above the ezequiel. ??NG tube passes below the diaphragm with tip not included on the image. BONES: No acute findings. OTHER: No other significant finding. Procedure Note Provider, MD Richard - 10/12/2020 EXAM DESCRIPTION: Chest 1 View Portable REASON FOR STUDY: follow up cxr for progress on bilat effusions TECHNIQUE: Frontal radiographic view of the chest acquired. COMPARISON: Chest x-ray May 18, 2018 FINDINGS: LUNGS/PLEURA: No change in bibasilar infiltrate and/or atelectasis, leftside greater than right. There are probable small bilateral pleural effusions. HEART/MEDIASTINUM: Heart size is normal. Pulmonary vascular congestion unchanged.. HARDWARE/LINES/TUBES: ET tube tip projects below the thoracic inlet andabove the ezequiel. NG tube passes below the diaphragm with tip not included onthe image. BONES: No acute findings. OTHER: No other significant finding. IMPRESSION: Stable bibasilar infiltrate and/or atelectasis, left sidegreater than right. Probable small bilateral pleural effusions. THIS IS AN ELECTRONICALLY VERIFIED FINAL REPORT 05/19/2018 7:10 AM - Electronically signed by Aureliano Renteria: 05/19/2018 7:10 AM T: Report ID: [id number] Reading Location: [place] [id number] [EOD] us Abdulsalam Jamous MD IMG XR PROCEDURES Final Res ult * (ABNORMAL) Blood gas (includes COOX) (05/19/2018 4:44 AM [facility] [[email or web address] Specimen Type ARTERIAL 05/19/2018 4:54 AM [facility] [[email or web address]] [facility] HISTORICAL RESULTS Puncture Site ART LINE 05/19/2018 4:[address] [facility] [employer] HISTORICAL RESULTS Patient Temperature 37.0 C 05/19 4:[address] [facility] [employer] HISTORICAL RESULTS pH 7.415 7.350 - 7.450 05/19/2018 4:54 AM [facility] [[email or web address]] [facility] HISTORICAL RESULTS pCO2 63.7(H) 32.0 - 48.0 mmHg 05/19/2018 4:54 AM [facility] [email or web address]] [facility] HISTORICAL RESULTS pO2 68.1(L) 80.0 - 110.0 mmHg 05/19/2018 4:54 AM [facility] [[email or web address]] [facility] HISTORICAL RESULTS HCO3 40.0(H) 22.0 - 26.0 mmol/L 05/19/2018 4:[address] [facility] [employer] HISTORICAL RESULTS Total CO2 42.0(H) 20.0 - 30.0 mmol/L 05/19/2018 4:[address] [facility] [employer] HISTORICAL RESULTS Base Excess 11.8(H) -2.0 - 2.0 mmol/L 05/19/2018 4:[address] [facility] [employer] HISTORICAL RESULTS Hemoglobin 18.3(H) 13.8 - 17.2 g/dL 05/19/2018 4:54 AM [facility] [email or web address]] [facility] HISTORICAL RESULTS O2 Saturation 91.3 90.0 - 95.0 % 05/19/2018 4:54 AM [facility] [[email or web address]] [facility] HISTORICAL RESULTS ABG Carboxyhemoglobin 1.1 <3.0 % 4:[address] [facility] [employer] HISTORICAL RESULTS ABG Methemoglobin 0.8 <2.0 % 018 4:54 AM FOOD SANITARIAN [facility] [employer] HISTORICAL RESULTS ABG O2 Content 23.5 17.6 - 24.3 Vol % 05/19/2018 4:[address] [facility] [employer] HISTORICAL RESULTS A-a O2 Difference 273.5(H) <=10.0 018 4:[address] [facility] [employer] HISTORICAL RESULTS a/A Ratio 0.2(L) >=0.8 O2 Delivery Device [id number] 2017 4:54 AM FOOD SANITARIAN [facility] HISTORICAL RESULTS FiO2 60.0 % Tidal Volume 400.0 05/19/2018 4:54 AM FOOD SANITARIAN [facility] HISTORICAL RESULTS Vent Mode AC 05/19/2018 4:54 AM FOOD SANITARIAN [facility] HISTORICAL RESULTS Mechanical Rate 20 8 4:54 AM FOOD SANITARIAN [facility] HISTORICAL RESULTS PEEP 16 05/19/2018 4:54 AM FOOD SANITARIAN [facility] HISTORICAL RESULTS BG Specimen Comment [id number] 05/19 4:54 AM [facility] HISTORICAL RESULTS Calciner Feeder ID PAH 05/19/2018 4:44 AM FOOD SANITARIAN 05/19/2018 4:47 AM FOOD SANITARIAN Narrative [facility] HISTORICAL RESULTS - 05/19/2018 4:54 AM FOOD SANITARIAN Conditions Vent ?? Source Arterial us Michelle Goodman MD LAB BLOOD ORDERABLES Final Result [facility] HISTORICAL RESULTS * Magnesium (05/19/2018 4:19 AM FOOD SANITARIAN) Magnesium 2.2 1.6 - 2.6 mg/dL Comment:Magnesium sulfate th erapy: 3.0-9.1 mg/dL 05/19/2018 4:19 AM FOOD SANITARIAN 05/19/2018 5:22 AM FOOD SANITARIAN us Michelle Goodman MD LAB BLOOD ORDERABLES Final Result [facility] HISTORICAL RESULTS * (ABNORMAL) Comprehensive metabolic panel (05/19/2018 4:19 AM FOOD SANITARIAN) Sodium 141 135 - 145 mmol/L 05/19/2018 5:57 AM FOOD SANITARIAN [facility] HISTORICAL RESULTS Potassium 4.2 3.3 - 5.1 mmol/L 05/19/2018 5:57 AM [employer] [facility] [employer] HISTORICAL RESULTS Chloride 94(L) 96 - 108 mmol/L 05/19/2018 5:57 AM [employer] [facility] [employer] HISTORICAL RESULTS Carbon Dioxide 38(H) 22 - 32 mmol/L 05/19/2018 5:57 AM [employer] [facility] [employer] [facility] HISTORICAL RESULTS Anion Gap 9 7 - 16 05/19/2018 5:57 AM [employer] [facility] [employer] HISTORICAL RESULTS Glucose 209(H) 70 - 100 mg/dL 05/19/2018 5:57 AM [employer] [facility] [employer] [facility] HISTORICAL RESULTS BUN 37(H) 6 - 20 mg/dL 05/19/2018 5:57 AM [employer] [facility] [employer] [facility] HISTORICAL RESULTS Creatinine 0.4(L) 0.5 - 1.3 mg/dL 05/19/2018 5:57 AM [facility] HISTORICAL RESULTS Comment: NOTE: Estimated GFR (Cockroft-Gault) will NOT be calculated unless patient Height and Weight were entered. Also, Kidney Disease Stage (GFR) and Estimated GFR (Cockroft-Gault) will NOT be calculated if Creatinine result is <0.2. Kidney Disease Stage > 90 mL/MIN 05/19/2018 5:57 AM [facility] HISTORICAL RESULTS Comment: NOTE; ??The GFR is [...] or on dialysis @ Est GFR (Cockcroft-G) 276 ml/MIN 05/19/2018 5:[address] [facility] [employer] HISTORICAL RESULTS Comment: Estimated GFR(Cockroft-Gault)is used to calculate patient medication dosage Calcium 8.7 8.6 - 10.0 mg/dL 05/19/2018 5:[address] [facility] [employer] HISTORICAL RESULTS Total Protein 5.9(L) 6.4 - 8.3 g/dL 05/19/2018 5:57 AM FOOD SANITARIAN [facility] [employer] [facility] HISTORICAL RESULTS Albumin 3.1(L) 3.5 - 5.2 g/dL 05/19/2018 5:57 AM FOOD SANITARIAN [facility] [employer] HISTORICAL RESULTS Globulin 2.8 2.3 - 3.5 gm/dL 05/19/2018 5:[address] [facility] [employer] HISTORICAL RESULTS Albumin/Globulin Ratio 1.1 1.1 - 1.8 05/19/2018 5:57 AM FOOD SANITARIAN [facility] [employer] HISTORICAL RESULTS Total Bilirubin 1.2 0.0 - 1.2 mg/dL 05/19/2018 5:57 AM FOOD SANITARIAN [facility] [employer] HISTORICAL RESULTS AST 18 0 - 40 U/L 05/19/2018 5:[address] [facility] [employer] HISTORICAL RESULTS ALT 29 0 - 41 U/L 05/19/2018 5:[address] [facility] [employer] HISTORICAL RESULTS Alkaline Phosphatase 46 40 - 129 U/L 05/19/2018 5:[address] [facility] [employer] HISTORICAL RESULTS 05/19/2018 4:19 AM FOOD SANITARIAN 05/19/2018 5:22 AM [facility] [[email or web address]] Michelle Goodman MD LAB BLOOD ORDERABLES Final Result [facility] HISTORICAL RESULTS * (ABNORMAL) CBC with auto differential (05/19/2018 4:19 AM FOOD SANITARIAN) WBC 13.5(H) 3.8 - 9.9 X10 3/ul 05/19/2018 5:[address] [facility] [employer] HISTORICAL RESULTS RBC 5.51 4.30 - 5.80 x10 6/ul 05/19/2018 5:[address] [facility] [employer] HISTORICAL RESULTS Hemoglobin 18.0(H) 13.0 - 17.5 g/dL 05/19/2018 5:28 AM [facility] HISTORICAL RESULTS Hct 57.0(H) 38.9 - 50.3 % 05/19/2018 5:45 AM FOOD SANITARIAN [employer] HISTORICAL RESULTS MCV 103.4(H) 81.3 - 96.4 fl 05/19/2018 5:28 AM FOOD SANITARIAN [facility] HISTORICAL RESULTS MCH 32.7 27.1 - 33.3 pg 05/19/2018 5:28 AM FOOD SANITARIAN [facility] HISTORICAL RESULTS MCHC 31.6(L) 32.3 - 35.7 g/dl 05/19/2018 5:28 AM [facility] HISTORICAL RESULTS RDW 13.6 11.1 - 14.9 % 05/19/2018 5:28 AM [facility] HISTORICAL RESULTS Plt Count 85(L) 150 - 400 x10 3/ul 05/19/2018 5:28 AM [facility] HISTORICAL RESULTS MPV 13.2(H) 9.1 - 12.3 fl 05/19/2018 5:28 AM [facility] HISTORICAL RESULTS Neut % 87.5 % 05/19/2018 5:28 AM [facility] HISTORICAL RESULTS Immature Gran % 0.6 % 8 5:28 AM FOOD SANITARIAN [facility] HISTORICAL RESULTS Lymph % 3.7 % 05/19/2018 5:28 AM [facility] HISTORICAL RESULTS [place]all % 8.0 % 05/19/2018 5:28 AM [facility] HISTORICAL RESULTS Eos % 0.0 % 05/19/2018 5:28 AM [facility] HISTORICAL RESULTS Baso % 0.2 % 05/19/2018 5:28 AM [facility] HISTORICAL RESULTS Absolute Neuts (auto) 11.8(H) 1.7 - 6.5 x10 3/ul 05/19/2018 5:28 AM FOOD SANITARIAN [facility] HISTORICAL RESULTS Immature Gran # 0.1 0.0 - 0.1 x10 3/ul 05/19/2018 5:28 AM FOOD SANITARIAN [employer] HISTORICAL RESULTS Absolute Lymphs (auto) 0.5(L) 0.8 - 3.3 x10 3/ul 05/19/2018 5:28 AM [facility] HISTORICAL RESULTS Absolute Monos (auto) 1.1(H) 0.2 - 0.8 x10 3/ul 05/19/2018 5:28 AM FOOD SANITARIAN [facility] HISTORICAL RESULTS Absolute Eos (auto) 0.0 0.0 - 0.5 x10 3/ul 05/19/2018 5:28 AM FOOD SANITARIAN [facility] HISTORICAL RESULTS Absolute Basos (auto) 0.0 0.0 - 0.1 x10 3/ul 05/19/2018 5:28 AM FOOD SANITARIAN [facility] HISTORICAL RESULTS Nucleat RBC Rel Count 0.0 #/100WBC 05/19/2018 5:28 AM FOOD SANITARIAN [facility] HISTORICAL RESULTS Absolute Nucleated RBC 0.00 0.00 - 0.01 x10 3/ul 05/19/2018 5:28 AM FOOD SANITARIAN [facility] HISTORICAL RESULTS Absolute Neutrophils 13940(H) 200 - 8000 /ul 05/19/2018 4:19 AM FOOD SANITARIAN 05/19/2018 5:22 AM FOOD SANITARIAN Michelle Goodman MD LAB BLOOD ORDERABLES Final Result Performing Organization Address [facility]/State/ZIP Co de Phone Number [facility] HISTORICAL RESULTS * Phosphorus (05/19/2018 4:19 AM FOOD SANITARIAN) Phosphorus 2.8 2.5 - 4.5 mg/dL 05/19/2018 5:57 AM FOOD SANITARIAN [facility] HISTORICAL RESULTS 05/19/2018 4:19 AM FOOD SANITARIAN 05/19/2018 5:22 AM FOOD SANITARIAN Michelle Goodman MD LAB BLOOD ORDERABLES Final Result [facility] HISTORICAL RESULTS * XR Chest 1 View (05/18/2018 6:02 AM FOOD SANITARIAN) Anatomical Region Laterality Modality Body, Chest N/A Radiographic Wendy ging 05/18/2018 6:02 AM FOOD SANITARIAN Impressions 05/18/2018 4:41 AM FOOD SANITARIAN ??No change in small left pleural effusion and bibasilar infiltrate and/or atelectasis. THIS IS AN ELECTRONICALLY VERIFIED FINAL REPORT 05/18/2018 4:38 AM - Electronically signed by Aureliano Dyer M.D., MA D: ??05/18/2018 4:38 AM T: Report ID: [id number] Reading Location: ??[id number] [EOD] Narrative 05/18/2018 4:41 AM FOOD SANITARIAN EXAM DESCRIPTION: ??Chest 1 View Portable REASON FOR STUDY: ??Resp distress 05/13, intubated follow up today for progress TECHNIQUE: ??Frontal radiographic view of the chest acquired. COMPARISON: ??Chest x-ray May 17, 2018 FINDINGS: LUNGS/PLEURA: Small left pleural effusion with bibasilar infiltrate and/or atelectasis unchanged. ??No pneumothorax. HEART/MEDIASTINUM: Heart size is normal. ??There is pulmonary vascular congestion. HARDWARE/LINES/TUBES: ET tube tip projects below the thoracic inlet and 5.8 cm above the ezequiel. ??NG tube passes below the diaphragm with tip not included on the image. BONES: No acute findings. OTHER: No other significant finding. Procedure Note Provider, MD Richard - 10/12/2020 EXAM DESCRIPTION: Chest 1 View Portable REASON FOR STUDY: Resp distress 05/13, intubated follow up today for progress TECHNIQUE: Frontal radiographic view of the chest acquired. COMPARISON: Chest x-ray May 17, 2018 FINDINGS: LUNGS/PLEURA: Small left pleural effusion with bibasilar infiltrate and/or atelectasis unchanged. No pneumothorax. HEART/MEDIASTINUM: Heart size is normal. There is pulmonary vascular congestion. HARDWARE/LINES/TUBES: ET tube tip projects below the thoracic inlet and5.8 cm above the ezequiel. NG tube passes below the diaphragm with tip notincluded on the image. BONES: No acute findings. OTHER: No other significant finding. IMPRESSION: No change in small left pleural effusion and bibasilarinfiltrate and/or atelectasis. THIS IS AN ELECTRONICALLY VERIFIED FINAL REPORT 05/18/2018 4:38 AM - Electronically signed by Aureliano Renteria: 05/18/2018 4:38 AM T: Report ID: [id number] Reading Location: [id number] [EOD] us Michelle Goodman MD IMG XR PROCEDURES Final Res ult * (ABNORMAL) Blood gas (includes COOX) (05/18/2018 4:41 AM FOOD SANITARIAN) Specimen Type ARTERIAL 05/18/2018 4:49 AM FOOD SANITARIAN [facility] HISTORICAL RESULTS Puncture Site ART LINE 05/18/2018 4:49 AM FOOD SANITARIAN [facility] HISTORICAL RESULTS Patient Temperature 37.0 C 05/18 4:49 AM FOOD SANITARIAN [facility] HISTORICAL RESULTS pH 7.411 7.350 - 7.450 05/18/2018 4:49 AM FOOD SANITARIAN [facility] HISTORICAL RESULTS pCO2 63.4(H) 32.0 - 48.0 mmHg 05/18/2018 4:49 AM FOOD SANITARIAN [facility] HISTORICAL RESULTS pO2 75.0(L) 80.0 - 110.0 mmHg 05/18/2018 4:49 AM FOOD SANITARIAN [facility] HISTORICAL RESULTS HCO3 39.5(H) 22.0 - 26.0 mmol/L 05/18/2018 4:49 AM FOOD SANITARIAN [facility] HISTORICAL RESULTS Total CO2 41.4(H) 20.0 - 30.0 mmol/L 05/18/2018 4:49 AM [facility] HISTORICAL RESULTS Base Excess 11.4(H) -2.0 - 2.0 mmol/L 05/18/2018 4:49 AM [facility] HISTORICAL RESULTS Hemoglobin 17.8(H) 13.8 - 17.2 g/dL 05/18/2018 4:49 AM [facility] HISTORICAL RESULTS O2 Saturation 93.1 90.0 - 95.0 % 05/18/2018 4:49 AM FOOD SANITARIAN [facility] HISTORICAL RESULTS ABG Carboxyhemoglobin 1.0 <3.0 % 4:49 AM [facility] HISTORICAL RESULTS ABG Methemoglobin 0.8 <2.0 % 018 4:49 AM [facility] HISTORICAL RESULTS ABG O2 Content 23.3 17.6 - 24.3 Vol % 05/18/2018 4:49 AM [facility] HISTORICAL RESULTS A-a O2 Difference 194.3(H) <=10.0 018 4:49 AM [facility] HISTORICAL RESULTS a/A Ratio 0.3(L) >=0.8 05/18/2018 4:49 AM FOOD SANITARIAN [facility] [employer] HISTORICAL RESULTS O2 Delivery Device [id number] 2017 4:[address] [facility] [employer] HISTORICAL RESULTS FiO2 50.0 % 05/18/2018 4:49 AM FOOD SANITARIAN [facility] [employer] HISTORICAL RESULTS Tidal Volume 400.0 05/18/2018 4:49 AM FOOD SANITARIAN [facility] [employer] HISTORICAL RESULTS Vent Mode AC 05/18/2018 4:49 AM FOOD SANITARIAN [facility] [employer] HISTORICAL RESULTS Mechanical Rate 20 8 4:49 AM FOOD SANITARIAN [facility] [employer] HISTORICAL RESULTS PEEP 16 05/18/2018 4:49 AM [facility] HISTORICAL RESULTS BG Specimen Comment [id number] 05/18 4:[address] [facility] [employer] HISTORICAL RESULTS Calciner Feeder ID [email or web address] 05/18/2018 4:[address] [facility] [employer] [facility] HISTORICAL RESULTS 05/18/2018 4:41 AM FOOD SANITARIAN 05/18/2018 4:48 AM FOOD SANITARIAN Narrative [facility] [employer] HISTORICAL RESULTS - 05/18/2018 4:49 AM FOOD SANITARIAN Conditions Vent ?? Source Arterial Michelle Goodman MD LAB BLOOD ORDERABLES Final Result Performing Organization Address [facility] Co de Phone Number [facility] [employer] HISTORICAL RESULTS * (ABNORMAL) Triglycerides (05/18/2018 4:39 AM FOOD SANITARIAN) Triglycerides 163(H) 0 - 149 mg/dL 05/18/2018 7:[address] [facility] Given.to HISTORICAL RESULTS Comment: National Lipid Association/NCEP Guidelines: ?? Normal ?< 150 mg/dL ?? Borderline high ?? 150-199 mg/dL ?? High ?200-499 mg/dL ?? Very High ? >=500 mg/dL 05/18/2018 4:39 AM FOOD SANITARIAN 05/18/2018 4:47 AM FOOD SANITARIAN Michelle Goodman MD LAB BLOOD ORDERABLES Final Result Performing Organization Address [facility] Co de Phone Number [facility] HISTORICAL RESULTS * Phosphorus (05/18/2018 4:39 AM FOOD SANITARIAN) Phosphorus 3.0 2.5 - 4.5 mg/dL 05/18/2018 5:20 AM FOOD SANITARIAN [facility] HISTORICAL RESULTS 05/18/2018 4:39 AM FOOD SANITARIAN 05/18/2018 4:47 AM FOOD SANITARIAN Michelle Goodman MD LAB BLOOD ORDERABLES Final Result [facility] HISTORICAL RESULTS * Magnesium (05/18/2018 4:39 AM FOOD SANITARIAN) Magnesium 2.2 1.6 - 2.6 mg/dL Comment:Magnesium sulfate th erapy: 3.0-9.1 mg/dL 05/18/2018 4:39 AM FOOD SANITARIAN 05/18/2018 4:47 AM FOOD SANITARIAN Michelle Goodman MD LAB BLOOD ORDERABLES Final Result [facility] HISTORICAL RESULTS * (ABNORMAL) Comprehensive metabolic panel (05/18/2018 4:39 AM FOOD SANITARIAN) Pathologist [facility] [place] Sodium 141 135 - 145 mmol/L Potassium 4.4 3.3 - 5.1 mmol/L Chloride 96 96 - 108 mmol/L Carbon Dioxide 38(H) 22 - 32 mmol/L Anion Gap 7 7 - 16 Glucose 185(H) 70 - 100 mg/dL BUN 31(H) 6 - 20 mg/dL Creatinine 0.5 0.5 - 1.3 mg/dL 05/18/2018 5:20 AM [facility] HISTORICAL RESULTS Comment: NOTE: Estimated GFR (Cockroft-Gault) will NOT be calculated unless patient Height and Weight were entered. Also, Kidney Disease Stage (GFR) and Estimated GFR (Cockroft-Gault) will NOT be calculated if Creatinine result is <0.2. Kidney Disease Stage > 90 mL/MIN 05/18/2018 5:20 AM [facility] HISTORICAL RESULTS Comment: NOTE; ??The GFR is [...] or on dialysis @ Est GFR (Cockcroft-G) 223 ml/MIN 05/18/2018 5:20 AM [facility] HISTORICAL RESULTS Comment: Estimated GFR(Cockroft-Gault)is used to calculate patient medication dosage Calcium 8.4(L) 8.6 - 10.0 mg/dL 05/18/2018 5:20 AM [facility] HISTORICAL RESULTS Total Protein 5.6(L) 6.4 - 8.3 g/dL 05/18/2018 5:20 AM [facility] HISTORICAL RESULTS Albumin 3.3(L) 3.5 - 5.2 g/dL 05/18/2018 5:20 AM [facility] HISTORICAL RESULTS Globulin 2.3 2.3 - 3.5 gm/dL Albumin/Globulin Ratio 1.4 1.1 - 1.8 Total Bilirubin 0.7 0.0 - 1.2 mg/dL AST 15 0 - 40 U/L Comment:Results reviewed ALT 17 0 - 41 U/L Comment:Results reviewed Alkaline Phosphatase 45 40 - 129 U/L 05/18/2018 4:39 AM FOOD SANITARIAN 05/18/2018 4:47 AM FOOD SANITARIAN Michelle Goodman MD LAB BLOOD ORDERABLES Final Result [facility] HISTORICAL RESULTS * (ABNORMAL) CBC with auto differential (05/18/2018 4:39 AM FOOD SANITARIAN) WBC 11.8(H) 3.8 - 9.9 X10 3/ul RBC 5.36 4.30 - 5.80 x10 6/ul Hemoglobin 17.4 13.0 - 17.5 g/dL Hct 55.6(H) 38.9 - 50.3 % MCV 103.7(H) 81.3 - 96.4 fl MCH 32.5 27.1 - 33.3 pg MCHC 31.3(L) 32.3 - 35.7 g/dl RDW 13.9 11.1 - 14.9 % 05/18/2018 4:49 AM FOOD SANITARIAN [facility] Given[employer]to HISTORICAL RESULTS Plt Count 85(L) 150 - 400 x10 3/ul 05/18/2018 4:49 AM [employer] [facility] Given.to HISTORICAL RESULTS MPV 12.6(H) 9.1 - 12.3 fl 05/18/2018 4:49 AM [employer] [facility] Given.to HISTORICAL RESULTS Neut % 87.7 % 05/18/2018 4:49 AM [employer] [facility] Given.to HISTORICAL RESULTS Immature Gran % 0.3 % 8 4:49 AM [employer] [facility] Given.to HISTORICAL RESULTS Lymph % 4.1 % 05/18/2018 4:49 AM [facility] HISTORICAL RESULTS [place] % 7.6 % 05/18/2018 4:49 AM [employer] [facility] Given.to HISTORICAL RESULTS Eos % 0.1 % 05/18/2018 4:49 AM [employer] [facility] Given.to HISTORICAL RESULTS Baso % 0.2 % 05/18/2018 4:49 AM [facility] HISTORICAL RESULTS Absolute Neuts (auto) 10.4(H) 1.7 - 6.5 x10 3/ul 05/18/2018 4:49 AM [facility] HISTORICAL RESULTS Immature Gran # 0.0 0.0 - 0.1 x10 3/ul 05/18/2018 4:49 AM [employer] [facility] Given.to HISTORICAL RESULTS Absolute Lymphs (auto) 0.5(L) 0.8 - 3.3 x10 3/ul 05/18/2018 4:49 AM [employer] [facility] Given.to HISTORICAL RESULTS Absolute Monos (auto) 0.9(H) 0.2 - 0.8 x10 3/ul 05/18/2018 4:49 AM [employer] [facility] Given.to HISTORICAL RESULTS Absolute Eos (auto) 0.0 0.0 - 0.5 x10 3/ul 05/18/2018 4:49 AM [facility] HISTORICAL RESULTS Absolute Basos (auto) 0.0 0.0 - 0.1 x10 3/ul 05/18/2018 4:49 AM [employer] [facility] Given.to HISTORICAL RESULTS Nucleat RBC Rel Count 0.0 #/100WBC 05/18/2018 4:49 AM [facility] HISTORICAL RESULTS Absolute Nucleated RBC 0.00 0.00 - 0.01 x10 3/ul 05/18/2018 4:49 AM FOOD SANITARIAN [facility] HISTORICAL RESULTS Absolute Neutrophils 23965(H) 200 - 8000 /ul 05/18/2018 4:49 AM FOOD SANITARIAN [facility] HISTORICAL RESULTS 05/18/2018 4:39 AM FOOD SANITARIAN 05/18/2018 4:47 AM FOOD SANITARIAN Michelle Goodman MD LAB BLOOD ORDERABLES Final Result [facility] HISTORICAL RESULTS * XR Chest 1 View (05/17/2018 6:02 AM FOOD SANITARIAN) Anatomical Region Laterality Modality Body, Chest N/A Radiographic Wendy ging 05/17/2018 6:02 AM FOOD SANITARIAN Impressions 05/17/2018 8:16 AM FOOD SANITARIAN ??Improving bilateral perihilar alveolar airspace opacity. Stable supporting lines and tubes. THIS IS AN ELECTRONICALLY VERIFIED FINAL REPORT 05/17/2018 8:13 AM - Electronically signed by Ramesh BETH D: ??05/17/2018 7:13 AM T: ??05/17/2018 7:47 AM Report ID: [id number] Reading Location: ??[id number] [EOD] Narrative 05/17/2018 8:16 AM FOOD SANITARIAN EXAM DESCRIPTION: ??Chest 1 View Portable REASON FOR STUDY: ??Pt to er 05/12 for SOB and hip pain. ??Resp distress 05/13, intubated TECHNIQUE: ??Frontal radiographic view of the chest acquired. COMPARISON: ??Chest radiograph dated May 16, 2018 FINDINGS: LUNGS/PLEURA: Bilateral trace pleural effusions are seen. ??Improving perihilar alveolar airspace opacity. HEART/MEDIASTINUM: The cardiac silhouette is mildly enlarged, however, stable. There is calcification of the aortic arch. HARDWARE/LINES/TUBES: Endotracheal tube is present with the tip above the ezequiel. ??Nasogastric tube is seen extending below the left hemidiaphragm. BONES: No acute findings. OTHER: No other significant finding. Procedure Note Provider, Richard, - 10/12/2020 EXAM DESCRIPTION: Chest 1 View Portable REASON FOR STUDY: Pt to er 05/12 for SOB and hip pain. Resp [id number], intubated TECHNIQUE: Frontal radiographic view of the chest acquired. COMPARISON: Chest radiograph dated May 16, 2018 FINDINGS: LUNGS/PLEURA: Bilateral trace pleural effusions are seen. Improvingperihilar alveolar airspace opacity. HEART/MEDIASTINUM: The cardiac silhouette is mildly enlarged, however,stable. There is calcification of the aortic arch. HARDWARE/LINES/TUBES: Endotracheal tube is present with the tip above the ezequiel. Nasogastric tube is seen extending below the lefthemidiaphragm. BONES: No acute findings. OTHER: No other significant finding. IMPRESSION: Improving bilateral perihilar alveolar airspace opacity. Stable supporting lines and tubes. THIS IS AN ELECTRONICALLY VERIFIED FINAL REPORT 05/17/2018 8:13 AM - Electronically signed by Ramesh BETH Report ID: [id number] Reading Location: [id number] [EOD] Michelle Goodman MD IMG XR PROCEDURES Final Res ult * (ABNORMAL) Blood gas (includes COOX) (05/17/2018 5:03 AM FOOD SANITARIAN) Specimen Type ARTERIAL 05/17/2018 5:15 AM FOOD SANITARIAN [facility] HISTORICAL RESULTS Puncture Site ART LINE 05/17/2018 5:15 AM FOOD SANITARIAN [facility] HISTORICAL RESULTS Patient Temperature 37.0 C 05/17 5:15 AM [facility] HISTORICAL RESULTS pH 7.373 7.350 - 7.450 05/17/2018 5:15 AM FOOD SANITARIAN [facility] HISTORICAL RESULTS pCO2 64.6(H) 32.0 - 48.0 mmHg 05/17/2018 5:15 AM FOOD SANITARIAN [facility] HISTORICAL RESULTS pO2 78.7(L) 80.0 - 110.0 mmHg 05/17/2018 5:15 AM FOOD SANITARIAN [facility] HISTORICAL RESULTS HCO3 36.7(H) 22.0 - 26.0 mmol/L 05/17/2018 5:15 AM [facility] HISTORICAL RESULTS Total CO2 38.6(H) 20.0 - 30.0 mmol/L Base Excess 8.5(H) -2.0 - 2.0 mmol/L Hemoglobin 17.3(H) 13.8 - 17.2 g/dL O2 Saturation 93.3 90.0 - 95.0 % ABG Carboxyhemoglobin 0.7 <3.0 % 5:15 AM [facility] HISTORICAL RESULTS ABG Methemoglobin 0.7 <2.0 % 018 5:15 AM [facility] HISTORICAL RESULTS ABG O2 Content 22.7 17.6 - 24.3 Vol % A-a O2 Difference 393.4(H) <=10.0 018 5:15 AM [facility] HISTORICAL RESULTS a/A Ratio 0.2(L) >=0.8 O2 Delivery Device PB840 2017 5:15 AM [facility] HISTORICAL RESULTS FiO2 80.0 % Tidal Volume 400.0 Vent Mode AC Mechanical Rate 18 8 5:15 AM [facility] HISTORICAL RESULTS PEEP 18 BG Specimen Comment [id number] 05/17 5:15 AM [facility] HISTORICAL RESULTS Calciner Feeder ID PAH 05/17/2018 5:03 AM FOOD SANITARIAN 05/17/2018 5:06 AM FOOD SANITARIAN Narrative [facility] HISTORICAL RESULTS - 05/17/2018 5:15 AM FOOD SANITARIAN Conditions Vent ?? Source Arterial us Michelle Goodman MD LAB BLOOD ORDERABLES Final Result [facility] HISTORICAL RESULTS * Phosphorus (05/17/2018 4:30 AM FOOD SANITARIAN) Phosphorus 4.3 2.5 - 4.5 mg/dL 05/17/2018 4:30 AM FOOD SANITARIAN 05/17/2018 4:43 AM FOOD SANITARIAN us Michelle Goodman MD LAB BLOOD ORDERABLES Final Result Performing Organization Address [facility]/ZIP Co de Phone Number [facility] HISTORICAL RESULTS * Magnesium (05/17/2018 4:30 AM FOOD SANITARIAN) Magnesium 2.1 1.6 - 2.6 mg/dL Comment:Magnesium sulfate th erapy: 3.0-9.1 mg/dL 05/17/2018 4:30 AM FOOD SANITARIAN 05/17/2018 4:43 AM FOOD SANITARIAN us Michelle Goodman MD LAB BLOOD ORDERABLES Final Result Performing Organization Address City/[facility]/ZIP Co de Phone Number [facility] HISTORICAL RESULTS * (ABNORMAL) Comprehensive metabolic panel (05/17/2018 4:30 AM FOOD SANITARIAN) Pathologist [facility] [place] Sodium 142 135 - 145 mmol/L Potassium 4.2 3.3 - 5.1 mmol/L Chloride 98 96 - 108 mmol/L Carbon Dioxide 35(H) 22 - 32 mmol/L Anion Gap 9 7 - 16 Glucose 173(H) 70 - 100 mg/dL 05/17/2018 5:06 AM [facility] HISTORICAL RESULTS BUN 28(H) 6 - 20 mg/dL 05/17/2018 5:06 AM [facility] HISTORICAL RESULTS Creatinine 0.5 0.5 - 1.3 mg/dL 05/17/2018 5:06 AM [facility] HISTORICAL RESULTS Comment: NOTE: Estimated GFR (Cockroft-Gault) will NOT be calculated unless patient Height and Weight were entered. Also, Kidney Disease Stage (GFR) and Estimated GFR (Cockroft-Gault) will NOT be calculated if Creatinine result is <0.2. Kidney Disease Stage > 90 mL/MIN 05/17/2018 5:06 AM [facility] HISTORICAL RESULTS Comment: NOTE; ??The GFR is [...] or on dialysis @ Est GFR (Cockcroft-G) 221 ml/MIN 05/17/2018 5:06 AM [facility] HISTORICAL RESULTS Comment: Estimated GFR(Cockroft-Gault)is used to calculate patient medication dosage Calcium 8.3(L) 8.6 - 10.0 mg/dL 05/17/2018 5:06 AM [facility] HISTORICAL RESULTS Total Protein 5.7(L) 6.4 - 8.3 g/dL 05/17/2018 5:06 AM [facility] HISTORICAL RESULTS Albumin 3.2(L) 3.5 - 5.2 g/dL 05/17/2018 5:06 AM FOOD SANITARIAN [facility] HISTORICAL RESULTS Globulin 2.5 2.3 - 3.5 gm/dL 05/17/2018 5:06 AM FOOD SANITARIAN [facility] HISTORICAL RESULTS Albumin/Globulin Ratio 1.3 1.1 - 1.8 05/17/2018 5:06 AM FOOD SANITARIAN [facility] HISTORICAL RESULTS Total Bilirubin 0.5 0.0 - 1.2 mg/dL 05/17/2018 5:06 AM FOOD SANITARIAN [facility] HISTORICAL RESULTS AST 8 0 - 40 U/L ALT 7 0 - 41 U/L Alkaline Phosphatase 48 40 - 129 U/L 05/17/2018 4:30 AM FOOD SANITARIAN 05/17/2018 4:43 AM [facility] [[email or web address]] Michelle Goodman MD LAB BLOOD ORDERABLES Final Result [facility] HISTORICAL RESULTS * (ABNORMAL) CBC with auto differential (05/17/2018 4:30 AM FOOD SANITARIAN) WBC 10.9(H) 3.8 - 9.9 X10 3/ul RBC 5.32 4.30 - 5.80 x10 6/ul Hemoglobin 16.8 13.0 - 17.5 g/dL Hct 54.3(H) 38.9 - 50.3 % MCV 102.1(H) 81.3 - 96.4 fl MCH 31.6 27.1 - 33.3 pg MCHC 30.9(L) 32.3 - 35.7 g/dl 05/17/2018 4:46 AM [facility] HISTORICAL RESULTS RDW 14.2 11.1 - 14.9 % 05/17/2018 4:46 AM [facility] HISTORICAL RESULTS Plt Count 96(L) 150 - 400 x10 3/ul 05/17/2018 4:46 AM [facility] HISTORICAL RESULTS MPV 12.4(H) 9.1 - 12.3 fl 05/17/2018 4:46 AM [facility] HISTORICAL RESULTS Neut % 88.3 % 05/17/2018 4:46 AM [facility] HISTORICAL RESULTS Immature Gran % 0.5 % 8 4:46 AM [facility] HISTORICAL RESULTS Lymph % 4.7 % 05/17/2018 4:46 AM [facility] HISTORICAL RESULTS [place] % 6.3 % 05/17/2018 4:46 AM [facility] HISTORICAL RESULTS Eos % 0.0 % 05/17/2018 4:46 AM [facility] HISTORICAL RESULTS Baso % 0.2 % 05/17/2018 4:46 AM [facility] HISTORICAL RESULTS Absolute Neuts (auto) 9.7(H) 1.7 - 6.5 x10 3/ul 05/17/2018 4:46 AM [facility] HISTORICAL RESULTS Immature Gran # 0.1 0.0 - 0.1 x10 3/ul 05/17/2018 4:46 AM [facility] HISTORICAL RESULTS Absolute Lymphs (auto) 0.5(L) 0.8 - 3.3 x10 3/ul 05/17/2018 4:46 AM [facility] HISTORICAL RESULTS Absolute Monos (auto) 0.7 0.2 - 0.8 x10 3/ul 05/17/2018 4:46 AM [facility] HISTORICAL RESULTS Absolute Eos (auto) 0.0 0.0 - 0.5 x10 3/ul 05/17/2018 4:46 AM [facility] HISTORICAL RESULTS Absolute Basos (auto) 0.0 0.0 - 0.1 x10 3/ul 05/17/2018 4:46 AM [facility] HISTORICAL RESULTS Nucleat RBC Rel Count 0.0 #/100WBC Absolute Nucleated RBC 0.00 0.00 - 0.01 x10 3/ul Absolute Neutrophils 9700(H) 200 - 8000 /ul 05/17/2018 4:30 AM FOOD SANITARIAN 05/17/2018 4:43 AM [facility] [[email or web address]] Michelle Goodman MD LAB BLOOD ORDERABLES Final Result [facility] HISTORICAL RESULTS * (ABNORMAL) Blood gas (includes COOX) (05/16/2018 6:12 PM FOOD SANITARIAN) Specimen Type ARTERIAL Puncture Site ART LINE Patient Temperature 37.0 C 05/16 6:20 PM [facility] HISTORICAL RESULTS pH 7.378 7.350 - 7.450 pCO2 61.5(H) 32.0 - 48.0 mmHg pO2 82.5 80.0 - 110.0 mmHg HCO3 35.4(H) 22.0 - 26.0 mmol/L Total CO2 37.3(H) 20.0 - 30.0 mmol/L Base Excess 7.7(H) -2.0 - 2.0 mmol/L Hemoglobin 17.7(H) 13.8 - 17.2 g/dL O2 Saturation 93.5 90.0 - 95.0 % ABG Carboxyhemoglobin 0.6 <3.0 % 6:20 PM [facility] HISTORICAL RESULTS ABG Methemoglobin 0.9 <2.0 % 018 6:20 PM [facility] HISTORICAL RESULTS ABG O2 Content 23.3 17.6 - 24.3 Vol % 05/16/2018 6:20 PM FOOD SANITARIAN [facility] HISTORICAL RESULTS A-a O2 Difference 393.4(H) <=10.0 018 6:20 PM [facility] HISTORICAL RESULTS a/A Ratio 0.2(L) >=0.8 O2 Delivery Device PB840 2017 6:20 PM [facility] HISTORICAL RESULTS FiO2 80.0 % Tidal Volume 400.0 Vent Mode AC VC Mechanical Rate 18 8 6:20 PM [facility] HISTORICAL RESULTS PEEP 16 BG Specimen Comment [id number] 05/16 6:20 PM [facility] HISTORICAL RESULTS Calciner Feeder ID [email or web address] 05/16/2018 6:12 PM FOOD SANITARIAN 05/16/2018 6:19 PM FOOD SANITARIAN Narrative [facility] HISTORICAL RESULTS - 05/16/2018 6:20 PM FOOD SANITARIAN Conditions Vent ?? Source Arterial us Iraj Newell Jr., MD LAB BLOOD ORDERABLES Final Result [facility] HISTORICAL RESULTS * (ABNORMAL) Basic metabolic panel (05/16/2018 6:03 PM FOOD SANITARIAN) Sodium 142 135 - 145 mmol/L 05/16/2018 6:40 PM FOOD SANITARIAN [facility] HISTORICAL RESULTS Potassium 4.1 3.3 - 5.1 mmol/L Chloride 99 96 - 108 mmol/L Carbon Dioxide 34(H) 22 - 32 mmol/L Anion Gap 9 7 - 16 Glucose 164(H) 70 - 100 mg/dL BUN 26(H) 6 - 20 mg/dL Creatinine 0.4(L) 0.5 - 1.3 mg/dL Comment: NOTE: Estimated [...] or on dialysis @ Est GFR (Cockcroft-G) 276 ml/MIN 05/16/2018 6:40 PM [facility] [[email or web address]] [facility] HISTORICAL RESULTS Comment: Estimated GFR(Cockroft-Gault)is used to calculate patient medication dosage Calcium 8.4(L) 8.6 - 10.0 mg/dL 05/16/2018 6:40 PM [facility] [[email or web address]] [facility] HISTORICAL RESULTS 05/16/2018 6:03 PM FOOD SANITARIAN 05/16/2018 6:14 PM FOOD SANITARIAN us Iraj Newell Jr., MD LAB BLOOD ORDERABLES Final Result [facility] * (ABNORMAL) Blood gas (includes COOX) (05/16/2018 9:13 AM FOOD SANITARIAN) Specimen Type ARTERIAL 05/16/2018 9:21 AM [facility] [email or web address]] [facility] HISTORICAL RESULTS Puncture Site ART LINE 05/16/2018 9:[address] [facility] HISTORICAL RESULTS Patient Temperature 37.0 C 05/16 9:21 AM [facility] [[email or web address]] [facility] HISTORICAL RESULTS pH 7.406 7.350 - 7.450 05/16/2018 9:21 AM [facility] [[email or web address]] [facility] HISTORICAL RESULTS pCO2 55.6(H) 32.0 - 48.0 mmHg 05/16/2018 9:21 AM [facility] [[email or web address]] [facility] HISTORICAL RESULTS pO2 74.5(L) 80.0 - 110.0 mmHg 05/16/2018 9:[address] [facility] HISTORICAL RESULTS HCO3 34.2(H) 22.0 - 26.0 mmol/L 05/16/2018 9:[address] [facility] HISTORICAL RESULTS Total CO2 35.9(H) 20.0 - 30.0 mmol/L 05/16/2018 9:21 AM [facility] [email or web address]] [facility] HISTORICAL RESULTS Base Excess 7.5(H) -2.0 - 2.0 mmol/L 05/16/2018 9:21 AM [facility] [[email or web address]] [facility] HISTORICAL RESULTS Hemoglobin 17.9(H) 13.8 - 17.2 g/dL 05/16/2018 9:21 AM [facility] [[email or web address]] [facility] HISTORICAL RESULTS O2 Saturation 92.1 90.0 - 95.0 % 05/16/2018 9:[address] [facility] HISTORICAL RESULTS ABG Carboxyhemoglobin 0.5 <3.0 % 9:21 AM FOOD SANITARIAN [facility] HISTORICAL RESULTS ABG Methemoglobin 0.8 <2.0 % 018 9:21 AM FOOD SANITARIAN [facility] HISTORICAL RESULTS ABG O2 Content 23.2 17.6 - 24.3 Vol % 05/16/2018 9:21 AM FOOD SANITARIAN [facility] HISTORICAL RESULTS A-a O2 Difference 408.8(H) <=10.0 018 9:21 AM FOOD SANITARIAN [facility] HISTORICAL RESULTS a/A Ratio 0.2(L) >=0.8 05/16/2018 9:21 AM FOOD SANITARIAN [facility] HISTORICAL RESULTS O2 Delivery Device PB840 2017 9:21 AM FOOD SANITARIAN [facility] HISTORICAL RESULTS FiO2 80.0 % 05/16/2018 9:21 AM FOOD SANITARIAN [facility] HISTORICAL RESULTS Tidal Volume 400.0 05/16/2018 9:21 AM FOOD SANITARIAN [facility] HISTORICAL RESULTS Vent Mode AC VC 05/16/2018 9:21 AM FOOD SANITARIAN [facility] HISTORICAL RESULTS Mechanical Rate 20 8 9:21 AM FOOD SANITARIAN [facility] HISTORICAL RESULTS PEEP 16 05/16/2018 9:21 AM FOOD SANITARIAN [facility] HISTORICAL RESULTS BG Specimen Comment [id number] 05/16 9:21 AM [facility] HISTORICAL RESULTS Calciner Feeder ID MAG 05/16/2018 9:13 AM FOOD SANITARIAN 05/16/2018 9:21 AM FOOD SANITARIAN Narrative [facility] HISTORICAL RESULTS - 05/16/2018 9:21 AM FOOD SANITARIAN Conditions Vent ?? Source Arterial us Iraj Newell Jr., MD LAB BLOOD ORDERABLES Final Result [facility] HISTORICAL RESULTS * (ABNORMAL) Blood gas (includes COOX) (05/16/2018 6:17 AM FOOD SANITARIAN) Specimen Type ARTERIAL Puncture Site ART LINE Patient Temperature 37.0 C 05/16 6:25 AM [facility] HISTORICAL RESULTS pH 7.484(H) 7.350 - 7.450 pCO2 43.5 32.0 - 48.0 mmHg pO2 72.4(L) 80.0 - 110.0 mmHg HCO3 32.4(H) 22.0 - 26.0 mmol/L Total CO2 33.7(H) 20.0 - 30.0 mmol/L Base Excess 8.1(H) -2.0 - 2.0 mmol/L Hemoglobin 18.1(H) 13.8 - 17.2 g/dL O2 Saturation 92.8 90.0 - 95.0 % ABG Carboxyhemoglobin 0.7 <3.0 % 6:25 AM [facility] HISTORICAL RESULTS ABG Methemoglobin 0.9 <2.0 % 018 6:25 AM [facility] HISTORICAL RESULTS ABG O2 Content 23.6 17.6 - 24.3 Vol % A-a O2 Difference 564.2(H) <=10.0 018 6:25 AM [facility] HISTORICAL RESULTS a/A Ratio 0.1(L) >=0.8 O2 Delivery Device PB840 2017 6:25 AM [facility] HISTORICAL RESULTS FiO2 100.0 % Vent Mode AC/PC Mechanical Rate 22 8 6:25 AM [facility] HISTORICAL RESULTS PEEP 15 05/16/2018 6:25 AM FOOD SANITARIAN [facility] HISTORICAL RESULTS PCV/INS [place] 15 05/16/2018 6:25 AM FOOD SANITARIAN [facility] HISTORICAL RESULTS Itime 0.80 05/16/2018 6:25 AM FOOD SANITARIAN [facility] HISTORICAL RESULTS BG Specimen Comment [id number] 05/16 6:25 AM FOOD SANITARIAN [facility] HISTORICAL RESULTS Calciner Feeder ID [id number] 05/16/2018 6:25 AM FOOD SANITARIAN [facility] HISTORICAL RESULTS 05/16/2018 6:17 AM FOOD SANITARIAN 05/16/2018 6:22 AM FOOD SANITARIAN Narrative [facility] HISTORICAL RESULTS - 05/16/2018 6:25 AM FOOD SANITARIAN Conditions Vent ?? Source Arterial Michelle Goodman MD LAB BLOOD ORDERABLES Final Result [facility] HISTORICAL RESULTS * XR Chest 1 View (05/16/2018 6:02 AM FOOD SANITARIAN) Anatomical Region Laterality Modality Body, Chest N/A Radiographic Wendy ging 05/16/2018 6:02 AM FOOD SANITARIAN Impressions 05/16/2018 7:35 AM FOOD SANITARIAN ??Findings most compatible with congestive heart failure pattern, stable to minimally improved compared to prior examination Satisfactory positioning of the support lines and tubes. THIS IS AN ELECTRONICALLY VERIFIED FINAL REPORT 05/16/2018 7:32 AM - Electronically signed by Ramesh BETH D: ??05/16/2018 7:32 AM T: Report ID: [id number] Reading Location: ??[id number] [EOD] Narrative 05/16/2018 7:35 AM FOOD SANITARIAN EXAM DESCRIPTION: ??Chest 1 View Portable REASON FOR STUDY: ??Pt to er 05/12 for SOB and hip pain. ??Resp distress 05/13, intubated TECHNIQUE: ??Frontal radiographic view of the chest acquired. COMPARISON: ??Chest radiograph dated May 15, 2018 FINDINGS: LUNGS/PLEURA: There is left basilar opacity representing atelectasis/consolidation and/or effusion. ??Pulmonary vascular congestion with perihilar pulmonary edema is noted. ??Findings are stable to minimally improved compared to prior examination. ??No appreciable pneumothorax. HEART/MEDIASTINUM: Cardiac silhouette is mildly enlarged. HARDWARE/LINES/TUBES: Endotracheal tube is per the tip above the ezequiel. ?? Nasogastric tube is seen extending below the left hemidiaphragm however exact position of the tip is not identified. BONES: No acute findings. OTHER: No other significant finding. Procedure Note Provider, Richard, - 10/12/2020 EXAM DESCRIPTION: Chest 1 View Portable REASON FOR STUDY: Pt to er 05/12 for SOB and hip pain. Resp [id number], intubated TECHNIQUE: Frontal radiographic view of the chest acquired. COMPARISON: Chest radiograph dated May 15, 2018 FINDINGS: LUNGS/PLEURA: There is left basilar opacity representing atelectasis/consolidation and/or effusion. Pulmonary vascular congestionwith perihilar pulmonary edema is noted. Findings are stable to minimallyimproved compared to prior examination. No appreciable pneumothorax. HEART/MEDIASTINUM: Cardiac silhouette is mildly enlarged. HARDWARE/LINES/TUBES: Endotracheal tube is per the tip above the ezequiel. Nasogastric tube is seen extending below the left hemidiaphragm howeverexact position of the tip is not identified. BONES: No acute findings. OTHER: No other significant finding. IMPRESSION: Findings most compatible with congestive heart failurepattern, stable to minimally improved compared to prior examination Satisfactory positioning of the support lines and tubes. THIS IS AN ELECTRONICALLY VERIFIED FINAL REPORT 05/16/2018 7:32 AM - Electronically signed by Ramesh BETH T: Report ID: [id number] Reading Location: [id number] [EOD] us Michelle Goodman MD IMG XR PROCEDURES Final Res ult * Magnesium (05/16/2018 4:18 AM FOOD SANITARIAN) Magnesium 2.0 1.6 - 2.6 mg/dL 05/16/2018 5:08 AM FOOD SANITARIAN [facility] HISTORICAL RESULTS Comment:Magnesium sulfate th erapy: 3.0-9.1 mg/dL 05/16/2018 4:18 AM FOOD SANITARIAN 05/16/2018 4:42 AM FOOD SANITARIAN us Michelle Goodman MD LAB BLOOD ORDERABLES Final Result [facility] HISTORICAL RESULTS * (ABNORMAL) Comprehensive metabolic panel (05/16/2018 4:18 AM FOOD SANITARIAN) Sodium 140 135 - 145 mmol/L Potassium 3.8 3.3 - 5.1 mmol/L Chloride 99 96 - 108 mmol/L Carbon Dioxide 31 22 - 32 mmol/L Anion Gap 10 7 - 16 Glucose 173(H) 70 - 100 mg/dL BUN 19 6 - 20 mg/dL Creatinine 0.5 0.5 [...] or on dialysis @ Est GFR (Cockcroft-G) 225 ml/MIN 05/16/2018 5:08 AM FOOD SANITARIAN [facility] HISTORICAL RESULTS Comment: Estimated GFR(Cockroft-Gault)is used to calculate patient medication dosage Calcium 8.4(L) 8.6 - 10.0 mg/dL 05/16/2018 5:08 AM FOOD SANITARIAN [facility] HISTORICAL RESULTS Total Protein 5.7(L) 6.4 - 8.3 g/dL 05/16/2018 5:[address] [facility] Given.to HISTORICAL RESULTS Albumin 3.0(L) 3.5 - 5.2 g/dL 05/16/2018 5:08 AM FOOD SANITARIAN [facility] HISTORICAL RESULTS Globulin 2.7 2.3 - 3.5 gm/dL 05/16/2018 5:08 AM FOOD SANITARIAN [facility] HISTORICAL RESULTS Albumin/Globulin Ratio 1.1 1.1 - 1.8 05/16/2018 5:08 AM FOOD SANITARIAN [facility] HISTORICAL RESULTS Total Bilirubin 0.5 0.0 - 1.2 mg/dL 05/16/2018 5:08 AM FOOD SANITARIAN [facility] HISTORICAL RESULTS AST 10 0 - 40 U/L 05/16/2018 5:08 AM FOOD SANITARIAN [facility] HISTORICAL RESULTS ALT 8 0 - 41 U/L 05/16/2018 5:08 AM FOOD SANITARIAN [facility] HISTORICAL RESULTS Alkaline Phosphatase 48 40 - 129 U/L 05/16/2018 5:08 AM FOOD SANITARIAN [facility] HISTORICAL RESULTS 05/16/2018 4:18 AM FOOD SANITARIAN 05/16/2018 4:42 AM FOOD SANITARIAN Michelle Goodman MD LAB BLOOD ORDERABLES Final Result [facility] Given.to HISTORICAL RESULTS * (ABNORMAL) CBC with auto differential (05/16/2018 4:18 AM FOOD SANITARIAN) WBC 11.5(H) 3.8 - 9.9 X10 3/ul 05/16/2018 4:51 AM FOOD SANITARIAN [facility] HISTORICAL RESULTS RBC 5.38 4.30 - 5.80 x10 6/ul 05/16/2018 4:51 AM FOOD SANITARIAN [facility] Given.to HISTORICAL RESULTS Hemoglobin 17.3 13.0 - 17.5 g/dL 05/16/2018 4:51 AM FOOD SANITARIAN [facility] Given.to HISTORICAL RESULTS Hct 52.5(H) 38.9 - 50.3 % 05/16/2018 4:51 AM FOOD SANITARIAN [facility] Given.to HISTORICAL RESULTS MCV 97.6(H) 81.3 - 96.4 fl 05/16/2018 4:51 AM FOOD SANITARIAN [facility] HISTORICAL RESULTS MCH 32.2 27.1 - 33.3 pg 05/16/2018 4:51 AM FOOD SANITARIAN [facility] Given.to HISTORICAL RESULTS MCHC 33.0 32.3 - 35.7 g/dl 05/16/2018 4:51 AM FOOD SANITARIAN [facility] HISTORICAL RESULTS RDW 14.3 11.1 - 14.9 % 05/16/2018 4:51 AM FOOD SANITARIAN [facility] HISTORICAL RESULTS Plt Count 113(L) 150 - 400 x10 3/ul 05/16/2018 4:51 AM FOOD SANITARIAN [facility] Given.to HISTORICAL RESULTS MPV 12.4(H) 9.1 - 12.3 fl 05/16/2018 4:51 AM [facility] HISTORICAL RESULTS Neut % 87.1 % 05/16/2018 4:51 AM FOOD SANITARIAN [facility] HISTORICAL RESULTS Immature Gran % 0.6 % 8 4:51 AM FOOD SANITARIAN [facility] HISTORICAL RESULTS Lymph % 6.2 % 05/16/2018 4:51 AM FOOD SANITARIAN [facility] HISTORICAL RESULTS [place] % 5.8 % 05/16/2018 4:51 AM FOOD SANITARIAN [facility] Given.to HISTORICAL RESULTS Eos % 0.1 % 05/16/2018 4:51 AM FOOD SANITARIAN [facility] HISTORICAL RESULTS Baso % 0.2 % 05/16/2018 4:51 AM [facility] HISTORICAL RESULTS Absolute Neuts (auto) 10.0(H) 1.7 - 6.5 x10 3/ul 05/16/2018 4:51 AM FOOD SANITARIAN [facility] HISTORICAL RESULTS Immature Gran # 0.1 0.0 - 0.1 x10 3/ul 05/16/2018 4:51 AM FOOD SANITARIAN [facility] HISTORICAL RESULTS Absolute Lymphs (auto) 0.7(L) 0.8 - 3.3 x10 3/ul 05/16/2018 4:51 AM FOOD SANITARIAN [facility] HISTORICAL RESULTS Absolute Monos (auto) 0.7 0.2 - 0.8 x10 3/ul 05/16/2018 4:51 AM FOOD SANITARIAN [facility] HISTORICAL RESULTS Absolute Eos (auto) 0.0 0.0 - 0.5 x10 3/ul 05/16/2018 4:51 AM FOOD SANITARIAN [facility] HISTORICAL RESULTS Absolute Basos (auto) 0.0 0.0 - 0.1 x10 3/ul Nucleat RBC Rel Count 0.0 #/100WBC Absolute Nucleated RBC 0.00 0.00 - 0.01 x10 3/ul Absolute Neutrophils 95544(H) 200 - 8000 /ul 05/16/2018 4:18 AM FOOD SANITARIAN 05/16/2018 4:42 AM FOOD SANITARIAN Michelle Goodman MD LAB BLOOD ORDERABLES Final Result [facility] HISTORICAL RESULTS * PROCEDURE - RESULT (05/16/2018 12:00 AM FOOD SANITARIAN) Narrative 05/16/2018 12:00 AM FOOD SANITARIAN Ordered by an unspecified provider. Historical Provider Final Res ult * Microbiology Specimen Report (Converted) (05/15/2018 2:50 PM FOOD SANITARIAN) 05/15/2018 2:50 PM FOOD SANITARIAN 05/15/2018 3:34 PM FOOD SANITARIAN Narrative [facility] HISTORICAL RESULTS - 05/15/2018 2:50 PM FOOD SANITARIAN Microbiology Specimen Report (Converted) SPECIMEN [id number] ?? COLLECTED: 2018-05-15 14:50:00 CL ?? REQ#: [id number] REQUESTING DR: Mckay Miller MD ?? SOURCE: ENDOTRACH ?? SP DESC: ASPIRATE --- PROCEDURE --- ?--- RESULT --- ?? GRAM STAIN LOWER RESPIRATORY ??(Final) ??- ??Performed at [facility] ?* >25 PMNS, <10 EPI/LPF. INDICATES LOWER RESP. TRACT SECRETION ?* NO ORGANISMS SEEN ?* PREDOMINATLY MIXED IVY, NON-DIAGNOSTIC PATTERN. ?* RARE PREDOMINANTLY MIXED IVY, NONDIAGNOSTIC PATTERN. CULTURE LOWER RESPIRATORY ??(Final) ??- ??Performed at [facility] ?* LIGHT GROWTH NORMAL UPPER RESPIRATORY IVY - [facility] ? [address] ? [place] [address] ? Jamison Zarate MD Procedure Note 2018 Microbiology Specimen Report (Converted) SPECIMEN [id number] COLLECTED: 2018-05-15 14:50:00 CL REQ#:[id number] REQUESTING DR: Mckay Miller MD SOURCE: ENDOTRACH SPDESC: ASPIRATE --- PROCEDURE --- --- RESULT --- GRAM STAIN LOWER RESPIRATORY (Final) - Performed at [facility] * >25 PMNS, <10 EPI/LPF. INDICATES LOWER RESP. TRACTSECRETION * NO ORGANISMS SEEN * PREDOMINATLY MIXED IVY, NON-DIAGNOSTIC PATTERN. * RARE PREDOMINANTLY MIXED IVY, NONDIAGNOSTICPATTERN. CULTURE LOWER RESPIRATORY (Final) - Performed at [facility] * LIGHT GROWTH NORMAL UPPER RESPIRATORY IVY - [facility] [address] [place] [address] Jamison Zarate MD us Mckay Miller MD LAB BLOOD ORDERAB LES Final Result [facility] Given.to HISTORICAL RESULTS * (ABNORMAL) Blood gas (includes COOX) (05/15/2018 9:28 AM FOOD SANITARIAN) Specimen Type ARTERIAL 05/15/2018 9:[address] [facility] Given.to HISTORICAL RESULTS Puncture Site RR 05/15/2018 9:34 AM FOOD SANITARIAN [facility] Given.to HISTORICAL RESULTS Patient Temperature 37.0 C 05/15 9:34 AM [facility] [employer] HISTORICAL RESULTS pH 7.470(H) 7.350 - 7.450 05/15/2018 9:[address] [facility] Given.to HISTORICAL RESULTS pCO2 47.0 32.0 - 48.0 mmHg 05/15/2018 9:34 AM [facility] HISTORICAL RESULTS pO2 67.7(L) 80.0 - 110.0 mmHg 05/15/2018 9:34 AM FOOD SANITARIAN [facility] Given.to HISTORICAL RESULTS HCO3 33.8(H) 22.0 - 26.0 mmol/L 05/15/2018 9:[address] [facility] Given.to HISTORICAL RESULTS Total CO2 35.2(H) 20.0 - 30.0 mmol/L 05/15/2018 9:[address] [facility] Given.to HISTORICAL RESULTS Base Excess 8.8(H) -2.0 - 2.0 mmol/L 05/15/2018 9:[address] [facility] Given.to HISTORICAL RESULTS Hemoglobin 17.1 13.8 - 17.2 g/dL 05/15/2018 9:[address] [facility] Given.to HISTORICAL RESULTS O2 Saturation 91.9 90.0 - 95.0 % 05/15/2018 9:[address] [facility] Given.to HISTORICAL RESULTS ABG Carboxyhemoglobin 0.8 <3.0 % 9:[address] [facility] Given.to HISTORICAL RESULTS ABG Methemoglobin 0.8 <2.0 % 018 9:[address] [facility] [employer] [facility] HISTORICAL RESULTS ABG O2 Content 22.0 17.6 - 24.3 Vol % A-a O2 Difference 570.6(H) <=10.0 018 9:34 AM FOOD SANITARIAN [facility] HISTORICAL RESULTS a/A Ratio 0.1(L) >=0.8 O2 Delivery Device PB840 2017 9:34 AM FOOD SANITARIAN [facility] HISTORICAL RESULTS FiO2 100.0 % 05/15/2018 9:34 AM FOOD SANITARIAN [facility] HISTORICAL RESULTS Vent Mode PC 05/15/2018 9:34 AM FOOD SANITARIAN [facility] HISTORICAL RESULTS Mechanical Rate 25 8 9:34 AM FOOD SANITARIAN [facility] HISTORICAL RESULTS PEEP 12 BG Specimen Comment ICU-1 05/15 9:34 AM [facility] HISTORICAL RESULTS Calciner Feeder ID [id number] 05/15/2018 9:28 AM FOOD SANITARIAN 05/15/2018 9:31 AM FOOD SANITARIAN Narrative [facility] HISTORICAL RESULTS - 05/15/2018 9:34 AM FOOD SANITARIAN Conditions Vent ?? Source Arterial Mckay Miller MD LAB BLOOD ORDERAB LES Final Result [facility] HISTORICAL RESULTS * (ABNORMAL) Blood gas (includes COOX) (05/15/2018 5:16 AM FOOD SANITARIAN) Specimen Type ARTERIAL 05/15/2018 5:36 AM [facility] HISTORICAL RESULTS Puncture Site LR Patient Temperature 37.0 C 05/15 5:36 AM [facility] HISTORICAL RESULTS pH 7.317(L) 7.350 - 7.450 pCO2 72.9(HH) 32.0 - 48.0 mmHg Comment: CRITICAL VALUE CALLED and REPEATED. ?? at:0535 05/15/18 by:Niurka Medellin to:KEVAN [id number], RN ?? pO2 76.0(L) 80.0 - 110.0 mmHg HCO3 36.2(H) 22.0 - 26.0 mmol/L Total CO2 38.5(H) 20.0 - 30.0 mmol/L Base Excess 6.8(H) -2.0 - 2.0 mmol/L Hemoglobin 17.1 13.8 - 17.2 g/dL O2 Saturation 90.4 90.0 - 95.0 % ABG Carboxyhemoglobin 0.5 <3.0 % 5:36 AM [facility] HISTORICAL RESULTS ABG Methemoglobin 0.8 <2.0 % 018 5:36 AM [facility] HISTORICAL RESULTS ABG O2 Content 21.7 17.6 - 24.3 Vol % A-a O2 Difference 530.9(H) <=10.0 018 5:36 AM [facility] HISTORICAL RESULTS a/A Ratio 0.1(L) >=0.8 O2 Delivery Device PB840 2017 5:36 AM [facility] HISTORICAL RESULTS FiO2 100.0 % Vent Mode PC Mechanical Rate 15 8 5:36 AM [facility] HISTORICAL RESULTS PEEP 12 Itime 0.80 BG Specimen Comment [id number] 05/15 5:36 AM [facility] HISTORICAL RESULTS Calciner Feeder ID [id number] 05/15/2018 5:[address] [facility] Given.to HISTORICAL RESULTS 05/15/2018 5:16 AM FOOD SANITARIAN 05/15/2018 5:34 AM FOOD SANITARIAN Narrative [facility] [employer] [facility] HISTORICAL RESULTS - 05/15/2018 5:36 AM FOOD SANITARIAN Conditions Vent ?? Source Arterial Trung Mcallister DO LAB BLOOD ORDERABLES Final Result [facility] HISTORICAL RESULTS * (ABNORMAL) CBC with auto differential (05/15/2018 4:36 AM FOOD SANITARIAN) WBC 12.3(H) 3.8 - 9.9 X10 3/ul 05/15/2018 4:[address] [facility] Given.to HISTORICAL RESULTS Comment:Results reviewed RBC 5.13 4.30 - 5.80 x10 6/ul 05/15/2018 4:[address] [facility] [employer] [facility] HISTORICAL RESULTS Hemoglobin 16.6 13.0 - 17.5 g/dL 05/15/2018 4:[address] [facility] HISTORICAL RESULTS Hct 51.6(H) 38.9 - 50.3 % 05/15/2018 4:[address] [facility] [employer] [facility] HISTORICAL RESULTS MCV 100.6(H) 81.3 - 96.4 fl 05/15/2018 4:[address] [facility] [employer] [facility] HISTORICAL RESULTS MCH 32.4 27.1 - 33.3 pg 05/15/2018 4:[address] [facility] [employer] [facility] HISTORICAL RESULTS MCHC 32.2(L) 32.3 - 35.7 g/dl 05/15/2018 4:[address] [facility] Given.to HISTORICAL RESULTS RDW 14.6 11.1 - 14.9 % 05/15/2018 4:[address] [facility] Given.to HISTORICAL RESULTS Plt Count 119(L) 150 - 400 x10 3/ul 05/15/2018 4:[address] [facility] Given.to HISTORICAL RESULTS MPV 12.0 9.1 - 12.3 fl 05/15/2018 4:[address] [facility] Given.to HISTORICAL RESULTS Neut % 90.3 % 05/15/2018 4:[address] [facility] Given.to HISTORICAL RESULTS Immature Gran % 0.4 % 12/19/201 8 4:48 AM [facility] HISTORICAL RESULTS Lymph % 4.3 % [place] % 4.9 % Eos % 0.0 % Baso % 0.1 % Absolute Neuts (auto) 11.2(H) 1.7 - 6.5 x10 3/ul Immature Gran # 0.1 0.0 - 0.1 x10 3/ul Absolute Lymphs (auto) 0.5(L) 0.8 - 3.3 x10 3/ul Absolute Monos (auto) 0.6 0.2 - 0.8 x10 3/ul Absolute Eos (auto) 0.0 0.0 - 0.5 x10 3/ul Absolute Basos (auto) 0.0 0.0 - 0.1 x10 3/ul Nucleat RBC Rel Count 0.0 #/100WBC Absolute Nucleated RBC 0.00 0.00 - 0.01 x10 3/ul Absolute Neutrophils 40032(H) 200 - 8000 /ul 05/15/2018 4:36 AM FOOD SANITARIAN 05/15/2018 4:42 AM [facility] [[email or web address]] us Trung Mcallister DO LAB BLOOD ORDERABLES Final Result [facility] HISTORICAL RESULTS * (ABNORMAL) Basic metabolic panel (05/15/2018 4:36 AM [facility] [[email or web address] Sodium 143 135 - 145 mmol/L Potassium 4.1 3.3 - 5.1 mmol/L Chloride 101 96 - 108 mmol/L Carbon Dioxide 35(H) 22 - 32 mmol/L Anion Gap 7 7 - 16 Glucose 162(H) 70 - 100 mg/dL BUN 21(H) 6 - 20 mg/dL Creatinine 0.7 0.5 [...] or on dialysis @ Est GFR (Cockcroft-G) 159 ml/MIN 05/15/2018 5:10 AM FOOD SANITARIAN [facility] Given.to HISTORICAL RESULTS Comment: Estimated GFR(Cockroft-Gault)is used to calculate patient medication dosage Calcium 8.5(L) 8.6 - 10.0 mg/dL 05/15/2018 5:10 AM FOOD SANITARIAN [facility] Given.to HISTORICAL RESULTS 05/15/2018 4:36 AM FOOD SANITARIAN 05/15/2018 4:42 AM FOOD SANITARIAN Trung Mcallister DO LAB BLOOD ORDERABLES Final Result [facility] [employer] [facility] HISTORICAL RESULTS * XR Chest 1 View (05/15/2018 12:00 AM FOOD SANITARIAN) Anatomical Region Laterality Modality Body, Chest N/A Radiographic Wendy ging 05/15/2018 Impressions 05/15/2018 7:30 AM FOOD SANITARIAN ?? 1.Tubes and lines as above. 2.Stable bilateral basilar predominant consolidations with stable small, left greater than right, pleural effusions. THIS IS AN ELECTRONICALLY VERIFIED FINAL REPORT 05/15/2018 7:28 AM - Electronically signed by Rosas Cortes M.D. LILLIE D: ??05/15/2018 7:28 AM T: Report ID: [id number] Reading Location: ??[id number] [EOD] Narrative 05/15/2018 7:30 AM FOOD SANITARIAN EXAM DESCRIPTION: ??Chest 1 View Portable REASON FOR STUDY: ??Intubated. ??Respiratory distress. ??Shortness of breath. TECHNIQUE: ??Frontal radiographic view of the chest acquired. COMPARISON: ??Chest radiograph 05/13/2018 and 05/12/2018 FINDINGS: LUNGS/PLEURA: Stable bilateral basilar predominant consolidations with stable small, left greater than right, pleural effusions. ??No pneumothorax. HEART/MEDIASTINUM: Stable cardiomediastinal silhouette. HARDWARE/LINES/TUBES: Endotracheal tube approximately 5.5 cm above the ezequiel. Enteric tube courses inferiorly beyond field of view though below the level of the gastroesophageal junction. BONES: No acute findings. OTHER: No other significant finding. Procedure Note Provider, MD Richard - 10/12/2020 EXAM DESCRIPTION: Chest 1 View Portable REASON FOR STUDY: Intubated. Respiratory distress. Shortness ofbreath. TECHNIQUE: Frontal radiographic view of the chest acquired. COMPARISON: Chest radiograph 05/13/2018 and 05/12/2018 FINDINGS: LUNGS/PLEURA: Stable bilateral basilar predominant consolidations withstable small, left greater than right, pleural effusions. No pneumothorax. HEART/MEDIASTINUM: Stable cardiomediastinal silhouette. HARDWARE/LINES/TUBES: Endotracheal tube approximately 5.5 cm above thecarina. Enteric tube courses inferiorly beyond field of view though below thelevel of the gastroesophageal junction. BONES: No acute findings. OTHER: No other significant finding. IMPRESSION: 1.Tubes and lines as above. 2.Stable bilateral basilar predominant consolidations with stable small,left greater than right, pleural effusions. THIS IS AN ELECTRONICALLY VERIFIED FINAL REPORT 05/15/2018 7:28 AM - Electronically signed by Rosas Cortes M.D. LILLIE T: Report ID: [id number] Reading Location: [place] [address] [EOD] Trung Mcallister DO IMG XR PROCEDURES Fi nal Result * Mycoplasma pneumoniae PCR, qualitative (05/14/2018 10:30 PM FOOD SANITARIAN) M. pneumoniae DNA NEGATIVE NEGATIVE 05/15/2018 5:57 AM FOOD SANITARIAN [facility] HISTORICAL RESULTS Comment:No Mycoplasma pneumo niae DNA detected. 05/14/2018 10:3 0 PM FOOD SANITARIAN 05/15/2018 5:00 AM FOOD SANITARIAN Siomara Brown NP LAB MICROBIOLOGY - GENERAL ORDERABLES Final Result [facility] HISTORICAL RESULTS * (ABNORMAL) Blood gas (includes COOX) (05/14/2018 9:21 PM [facility] [[email or web address] Specimen Type ARTERIAL Puncture Site LR Patient Temperature 37.0 C 05/14 9:30 PM [facility] HISTORICAL RESULTS pH 7.586(H) 7.350 - 7.450 pCO2 35.0 32.0 - 48.0 mmHg pO2 78.7(L) 80.0 - 110.0 mmHg HCO3 33.5(H) 22.0 - 26.0 mmol/L Total CO2 34.5(H) 20.0 - 30.0 mmol/L Base Excess 11.0(H) -2.0 - 2.0 mmol/L Hemoglobin 17.5(H) 13.8 - 17.2 g/dL O2 Saturation 95.0 90.0 - 95.0 % ABG Carboxyhemoglobin 0.9 <3.0 % 9:30 PM [facility] HISTORICAL RESULTS ABG Methemoglobin 0.9 <2.0 % 018 9:30 PM [facility] HISTORICAL RESULTS ABG O2 Content 23.3 17.6 - 24.3 Vol % A-a O2 Difference 297.6(H) <=10.0 018 9:30 PM [facility] HISTORICAL RESULTS a/A Ratio 0.2(L) >=0.8 O2 Delivery Device PB840 2017 9:30 PM FOOD SANITARIAN [facility] HISTORICAL RESULTS FiO2 60.0 % Vent Mode AC Mechanical Rate 18 8 9:30 PM FOOD SANITARIAN [facility] HISTORICAL RESULTS PEEP 12 05/14/2018 9:30 PM FOOD SANITARIAN [facility] HISTORICAL RESULTS BG Specimen Comment [id number] 05/14 9:30 PM [facility] HISTORICAL RESULTS Calciner Feeder ID [id number] 05/14/2018 9:21 PM FOOD SANITARIAN 05/14/2018 9:23 PM FOOD SANITARIAN Narrative [facility] HISTORICAL RESULTS - 05/14/2018 9:30 PM FOOD SANITARIAN Conditions Vent ?? Source Arterial Trung Mcallister DO LAB BLOOD ORDERABLES Final Result [facility] HISTORICAL RESULTS * Phosphorus (05/14/2018 4:17 AM FOOD SANITARIAN) Phosphorus 3.4 2.5 - 4.5 mg/dL 05/14/2018 4:17 AM FOOD SANITARIAN 05/14/2018 4:32 AM FOOD SANITARIAN [email or web address] DO LAB BLOOD ORDERABLES Final Result [facility] HISTORICAL RESULTS * Magnesium (05/14/2018 4:17 AM FOOD SANITARIAN) Magnesium 2.0 1.6 - 2.6 mg/dL Comment:Magnesium sulfate th erapy: 3.0-9.1 mg/dL 05/14/2018 4:17 AM FOOD SANITARIAN 05/14/2018 4:32 AM FOOD SANITARIAN us Madijean carlos Yisselkandismicaela Ary DO LAB BLOOD ORDERABLES Final Result [facility] HISTORICAL RESULTS * (ABNORMAL) CBC with auto differential (05/14/2018 4:17 AM FOOD SANITARIAN) WBC 9.2 3.8 - 9.9 X10 3/ul 05/14/2018 4:36 AM FOOD SANITARIAN [facility] HISTORICAL RESULTS RBC 5.00 4.30 - 5.80 x10 6/ul 05/14/2018 4:36 AM FOOD SANITARIAN [facility] HISTORICAL RESULTS Hemoglobin 16.3 13.0 - 17.5 g/dL 05/14/2018 4:36 AM FOOD SANITARIAN [facility] HISTORICAL RESULTS Hct 50.5(H) 38.9 - 50.3 % 05/14/2018 4:36 AM FOOD SANITARIAN [facility] HISTORICAL RESULTS MCV 101.0(H) 81.3 - 96.4 fl 05/14/2018 4:36 AM FOOD SANITARIAN [facility] HISTORICAL RESULTS MCH 32.6 27.1 - 33.3 pg 05/14/2018 4:36 AM FOOD SANITARIAN [facility] HISTORICAL RESULTS MCHC 32.3 32.3 - 35.7 g/dl 05/14/2018 4:36 AM FOOD SANITARIAN [facility] HISTORICAL RESULTS RDW 14.5 11.1 - 14.9 % 05/14/2018 4:36 AM FOOD SANITARIAN [facility] HISTORICAL RESULTS Plt Count 119(L) 150 - 400 x10 3/ul 05/14/2018 4:36 AM FOOD SANITARIAN [facility] HISTORICAL RESULTS MPV 11.7 9.1 - 12.3 fl 05/14/2018 4:36 AM FOOD SANITARIAN [facility] HISTORICAL RESULTS Neut % 86.5 % 05/14/2018 4:36 AM FOOD SANITARIAN [facility] HISTORICAL RESULTS Immature Gran % 0.4 % 8 4:36 AM FOOD SANITARIAN [facility] HISTORICAL RESULTS Lymph % 9.3 % 05/14/2018 4:36 AM FOOD SANITARIAN [facility] HISTORICAL RESULTS [place] % 3.7 % 05/14/2018 4:36 AM FOOD SANITARIAN [facility] HISTORICAL RESULTS Eos % 0.0 % 05/14/2018 4:36 AM FOOD SANITARIAN [facility] HISTORICAL RESULTS Baso % 0.1 % Absolute Neuts (auto) 8.0(H) 1.7 - 6.5 x10 3/ul Immature Gran # 0.0 0.0 - 0.1 x10 3/ul 05/14/2018 4:36 AM FOOD SANITARIAN [facility] HISTORICAL RESULTS Absolute Lymphs (auto) 0.9 0.8 - 3.3 x10 3/ul Absolute Monos (auto) 0.3 0.2 - 0.8 x10 3/ul Absolute Eos (auto) 0.0 0.0 - 0.5 x10 3/ul 05/14/2018 4:36 AM FOOD SANITARIAN [facility] HISTORICAL RESULTS Absolute Basos (auto) 0.0 0.0 - 0.1 x10 3/ul Nucleat RBC Rel Count 0.0 #/100WBC Absolute Nucleated RBC 0.00 0.00 - 0.01 x10 3/ul Absolute Neutrophils 8000 200 - 8000 /ul 05/14/2018 4:17 AM FOOD SANITARIAN 05/14/2018 4:32 AM [facility] [[email or web address]] Trung Mcallister DO LAB BLOOD ORDERABLES Final Result [facility] HISTORICAL RESULTS * (ABNORMAL) Basic metabolic panel (05/14/2018 4:17 AM [facility] [[email or web address] Sodium 146(H) 135 - 145 mmol/L Potassium 4.1 3.3 - 5.1 mmol/L Chloride 99 96 - 108 mmol/L Carbon Dioxide 32 22 - 32 mmol/L Anion Gap 15 7 - 16 Glucose 129(H) 70 - 100 mg/dL BUN 26(H) 6 - 20 mg/dL Creatinine 0.7 0.5 [...] or on dialysis @ Est GFR (Cockcroft-G) 136 ml/MIN Comment: Estimated GFR(Cockroft-Gault)is used to calculate patient medication dosage Calcium 8.7 8.6 - 10.0 mg/dL 05/14/2018 4:17 AM FOOD SANITARIAN 05/14/2018 4:32 AM FOOD SANITARIAN Trung Mcallister DO LAB BLOOD ORDERABLES Final Result Performing Organization Address [facility] Co de Phone Number [facility] HISTORICAL RESULTS * IgE (05/14/2018 4:16 AM FOOD SANITARIAN) IgE 65 0 - 100 IU/mL 05/14/2018 4:16 AM FOOD SANITARIAN 05/14/2018 2:45 PM FOOD SANITARIAN Siomara Brown SURVEY AND 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 LAB BLOOD ORDERABLES Final Result Performing Organization Address [facility] de Phone Number [facility] HISTORICAL RESULTS * (ABNORMAL) Urinalysis reflex to microscopic and culture (05/13/2018 8:33 PM FOOD SANITARIAN) Pathologist [facility] [place] Ur Collection Type INDWELLING CATH Ur Culture Indicated? C&S NOT INDICATED Urine Color CODY YELLOW Urine Clarity Slightly-Clou dy CLEAR Urine Glucose (UA) NORMAL NORMAL mg/dL Urine Bilirubin NEGATIVE NEGATIVE mg/dl Urine Ketones 80(H) NEGATIVE mg/dL Ur Specific [place] 1.042(H) 1.005 - 1.025 Urine Blood 0.03(H) NEGATIVE mg/dl Urine pH 5.0 5.0 - 8.0 Urine Protein 30(H) NEGATIVE mg/dL Urine Urobilinogen 2(H) NORMAL mg/dL 05/13/2018 8:58 PM FOOD SANITARIAN [facility] HISTORICAL RESULTS Urine Nitrite NEGATIVE NEGATIVE Ur Leukocyte Esterase NEGATIVE NEGATIVE Mar[place]ell/ul Ur Microscopic Review Indicated or Ordered Urine RBC 70 0 - 2 /HPF Urine WBC 5 0 - 2 /HPF Urine Mucus Many /LPF 05/13/2018 8:33 PM FOOD SANITARIAN 05/13/2018 8:39 PM FOOD SANITARIAN [facility] HISTORICAL RESULTS - 05/13/2018 8:58 PM FOOD SANITARIAN Indication(s) for ordering ? Dysuria ?? us Khai Wall MD LAB MICROBIOLOGY - GE NERAL ORDERABLES Final Result [facility] HISTORICAL RESULTS * Strep pneumoniae antigen, urine (05/13/2018 8:33 PM FOOD SANITARIAN) Ur Strep pneumoniae Ag NEGATIVE NEGATIVE 05/13/2018 8:33 PM FOOD SANITARIAN 05/13/2018 8:39 PM FOOD SANITARIAN [facility] HISTORICAL RESULTS - 05/13/2018 9:00 PM FOOD SANITARIAN Collected By bjp ?? Urine collection method Indwelling catheter us Trung Mcallister DO LAB MICROBIOLOGY - G ENERAL ORDERABLES Final Result [facility] HISTORICAL RESULTS * Legionella pneumophilia antigen, urine (05/13/2018 8:33 PM FOOD SANITARIAN) URINE LEGIONELLA PNEUMO AG Negative Negative 05/16/2018 3:10 PM FOOD SANITARIAN [facility] HISTORICAL RESULTS Comment: Sample is negative for [...] one (1) ?? antigen. ?? Performed by [employer], ?? [address] [facility] [address] ?? [email or web address], Luiz Andrea MD, Lab. Director ?? 05/13/2018 8:33 PM FOOD SANITARIAN 05/13/2018 8:39 PM FOOD SANITARIAN Narrative [facility] HISTORICAL RESULTS - 05/16/2018 3:10 PM FOOD SANITARIAN Collected By:bjp ?? Urine collection method Indwelling catheter Trung Mcallister DO LAB MICROBIOLOGY - G ENERAL ORDERABLES Final Result [facility] HISTORICAL RESULTS * (ABNORMAL) Blood gas (includes COOX) (05/13/2018 7:11 PM FOOD SANITARIAN) Pathologist [facility] [place] Specimen Type ARTERIAL 05/13/2018 7:15 PM FOOD SANITARIAN [facility] HISTORICAL RESULTS Puncture Site RR 05/13/2018 7:15 PM FOOD SANITARIAN [facility] HISTORICAL RESULTS Patient Temperature 37.0 C 05/13 7:15 PM [facility] HISTORICAL RESULTS pH 7.485(H) 7.350 - 7.450 pCO2 45.5 32.0 - 48.0 mmHg 05/13/2018 7:15 PM FOOD SANITARIAN [facility] HISTORICAL RESULTS pO2 74.1(L) 80.0 - 110.0 mmHg HCO3 33.8(H) 22.0 - 26.0 mmol/L Total CO2 35.2(H) 20.0 - 30.0 mmol/L Base Excess 9.2(H) -2.0 - 2.0 mmol/L Hemoglobin 16.9 13.8 - 17.2 g/dL O2 Saturation 94.2 90.0 - 95.0 % ABG Carboxyhemoglobin 1.0 <3.0 % 7:15 PM [facility] HISTORICAL RESULTS ABG Methemoglobin 0.9 <2.0 % 018 7:15 PM [facility] HISTORICAL RESULTS ABG O2 Content 22.4 17.6 - 24.3 Vol % A-a O2 Difference 574.0(H) <=10.0 018 7:15 PM [facility] HISTORICAL RESULTS a/A Ratio 0.1(L) >=0.8 O2 Delivery Device [id number] 2017 7:15 PM [facility] HISTORICAL RESULTS FiO2 100.0 % Tidal Volume 500.0 Vent Mode AC Mechanical Rate 18 8 7:15 PM [facility] HISTORICAL RESULTS PEEP 10 BG Specimen Comment [id number] 05/13 7:15 PM [facility] HISTORICAL RESULTS Calciner Feeder ID NEB 05/13/2018 7:11 PM FOOD SANITARIAN 05/13/2018 7:14 PM FOOD SANITARIAN Narrative [facility] [employer] HISTORICAL RESULTS - 05/13/2018 7:15 PM FOOD SANITARIAN Conditions Vent ?? Source Arterial us Mckay Miller MD LAB BLOOD ORDERAB LES Final Result [facility] HISTORICAL RESULTS * Transthoracic Echo Complete W Doppler/CF (05/13/2018 1:35 PM FOOD SANITARIAN) Anatomical Region Laterality Modality Ultrasound 05/13/2018 1:35 PM FOOD SANITARIAN Narrative 05/13/2018 4:56 PM FOOD SANITARIAN Results viewable in EMR, Cardiovascular [EOD] Procedure Note Provider, Richard, - 10/12/2020 Results viewable in EMR, Cardiovascular [EOD] us Mckay Miller MD CV ECHO PROCEDURE S Final Result * (ABNORMAL) Blood gas (includes COOX) (05/13/2018 10:19 AM FOOD SANITARIAN) Specimen Type ARTERIAL 05/13/2018 10:25 AM [facility] [[email or web address]] [employer] HISTORICAL RESULTS Puncture Site LR 05/13/2018 10:25 AM [facility] [employer] HISTORICAL RESULTS Patient Temperature 37.0 C 05/13 10:25 AM [facility] [employer] HISTORICAL RESULTS pH 7.616(HH) 7.350 - 7.450 05/13/2018 10:25 AM [facility] HISTORICAL RESULTS Comment: CRITICAL VALUE CALLED and REPEATED. ?? at:1025 05/13/18 by:Marilin Russell to: ?? pCO2 33.8 32.0 - 48.0 mmHg 05/13/2018 10:25 AM FOOD SANITARIAN [facility] Given.to HISTORICAL RESULTS pO2 46.4(LL) 80.0 - 110.0 mmHg 05/13/2018 10:25 AM [facility] [employer] HISTORICAL RESULTS Comment: CRITICAL VALUE CALLED and REPEATED. ?? at:1025 05/13/18 by:Marilin Russell to: ?? HCO3 34.7(H) 22.0 - 26.0 mmol/L 05/13/2018 10:[address] [facility] HISTORICAL RESULTS Total CO2 35.7(H) 20.0 - 30.0 mmol/L Base Excess 12.5(H) -2.0 - 2.0 mmol/L Hemoglobin 17.5(H) 13.8 - 17.2 g/dL O2 Saturation 90.2 90.0 - 95.0 % ABG Carboxyhemoglobin 1.8 <3.0 % ABG Methemoglobin 0.9 <2.0 % 018 10:25 AM [facility] HISTORICAL RESULTS ABG O2 Content 22.0 17.6 - 24.3 Vol % A-a O2 Difference 617.4(H) <=10.0 018 10:25 AM [facility] HISTORICAL RESULTS a/A Ratio 0.1(L) >=0.8 O2 Delivery Device [id number] 2017 10:25 AM [facility] HISTORICAL RESULTS FiO2 100.0 % Tidal Volume 500.0 Vent Mode AC Mechanical Rate 28 8 10:25 AM [facility] HISTORICAL RESULTS PEEP 5 BG Specimen Comment [id number] 05/13 10:25 AM [facility] HISTORICAL RESULTS Calciner Feeder ID [id number] 05/13/2018 10:1 9 AM [facility] [[email or web address]] 05/13/2018 10:23 AM [facility] [[email or web address]] Narrative [facility] HISTORICAL RESULTS - 05/13/2018 10:25 AM FOOD SANITARIAN Conditions Vent ?? Source Arterial us Mckay Miller MD LAB BLOOD ORDERAB LES Final Result Performing Organization Address [facility]/ZIP Co de Phone Number [facility] HISTORICAL RESULTS * Troponin I (05/13/2018 8:42 AM FOOD SANITARIAN) Pathologist [facility] [place] Troponin I < 0.300 0.000 - 0.300 ng/mL Comment: Reference using AMBIKA Chemiluminescence ? Negative: Repeat in 4-6 hours as indicated. 05/13/2018 8:42 AM FOOD SANITARIAN 05/13/2018 9:16 AM FOOD SANITARIAN Narrative [facility] HISTORICAL RESULTS - 05/13/2018 9:41 AM FOOD SANITARIAN ORIGINALLY ORDERED FOR 0900 - DRAWN TOO SOON us Khai Wall MD LAB BLOOD ORDERABLES Final Result Performing Organization Address [facility] de Phone Number [facility] HISTORICAL RESULTS * (ABNORMAL) BLOOD GAS w/LYTES & LACTATE (05/13/2018 6:25 AM FOOD SANITARIAN) [facility] Specimen Type ARTERIAL 05/13/2018 6:[address] [facility] [employer] [facility] HISTORICAL RESULTS Puncture Site LR Patient Temperature 37.0 C 05/13 6:33 AM [facility] HISTORICAL RESULTS pH 7.145(LL) 7.350 - 7.450 Comment: CRITICAL VALUE CALLED and REPEATED. ?? at:0632 05/13/18 by:Roseann Cunningham to:YUDI CARSON RN ?? pCO2 125.0(HH) 32.0 - 48.0 mmHg Comment: CRITICAL VALUE CALLED and REPEATED. ?? at:0633 05/13/18 by:Roseann Cunningham to:YUDI CARSON RN ?? pO2 83.7 80.0 - 110.0 mmHg HCO3 41.3(H) 22.0 - 26.0 mmol/L Total CO2 45.1(H) 20.0 - 30.0 mmol/L Base Excess 5.1(H) -2.0 - 2.0 mmol/L Hemoglobin 17.3(H) 13.8 - 17.2 g/dL O2 Saturation 91.8 90.0 - 95.0 % ABG Carboxyhemoglobin 1.7 <3.0 % ABG Methemoglobin 0.9 <2.0 % 018 6:33 AM [facility] HISTORICAL RESULTS ABG O2 Content 22.3 17.6 - 24.3 Vol % Na+ (BLOOD GAS) 142 135 - 145 mmol/L K+ (BLOOD GAS) 4.6 3.3 - 4.9 mmol/L CA++ (ionized) BLOOD GAS 1.24 1.13 - 1.28 mmol/L GLUCOSE (BLOOD GAS) 94 65 - 199 mg/dL Lactate (BLOOD GAS) 0.8 0.5 - 2.0 mEq/L A-a O2 Difference 324.1(H) <=10.0 018 6:33 AM [facility] HISTORICAL RESULTS a/A Ratio 0.2(L) >=0.8 O2 Delivery Device BIPAP 2017 6:33 AM FOOD SANITARIAN [facility] Given[employer]to HISTORICAL RESULTS FiO2 80.0 % 05/13/2018 6:33 AM FOOD SANITARIAN [facility] [employer] HISTORICAL RESULTS Mechanical Rate 18 8 6:[address] [facility] Given[employer]to HISTORICAL RESULTS Mode BiPAP 18/8 05/13/2018 6:[address] [facility] [employer] [facility] HISTORICAL RESULTS BG Specimen Comment [id number] 05/13 6:[address] [facility] [employer] [facility] HISTORICAL RESULTS Calciner Feeder ID [id number] 05/13/2018 6:[address] [facility] [employer] HISTORICAL RESULTS 05/13/2018 6:25 AM FOOD SANITARIAN 05/13/2018 6:28 AM FOOD SANITARIAN Narrative [facility] Given[employer]to HISTORICAL RESULTS - 05/13/2018 6:33 AM FOOD SANITARIAN Conditions BIPAP ?? Source Arterial Trung Mcallister DO LAB BLOOD ORDERABLES Final Result Performing Organization Address [facility]/ZIP Co de Phone Number [facility] HISTORICAL RESULTS * (ABNORMAL) aPTT (05/13/2018 6:24 AM FOOD SANITARIAN) APTT 34(H) 26 - 33 SECONDS 05/13/2018 6:[address] [facility] Given[employer]to HISTORICAL RESULTS 05/13/2018 6:24 AM FOOD SANITARIAN 05/13/2018 6:31 AM FOOD SANITARIAN [facility] Given.to HISTORICAL RESULTS - 05/13/2018 6:51 AM FOOD SANITARIAN REDRAW ?? Trung Mcallister DO LAB BLOOD ORDERABLES Final Result [facility] [employer] [facility] HISTORICAL RESULTS * Protime-INR (05/13/2018 6:24 AM FOOD SANITARIAN) PT 14.3 11.8 - 14.5 SECONDS 05/13/2018 6:[address] [facility] Given[employer]to HISTORICAL RESULTS INR 1.10 05/13/2018 6:[address] [facility] Given.to HISTORICAL RESULTS Comment: Recommended Therapeutic range for Oral Anticoagulant Therapy No anti-coagulation therapy ? Normal Range: ?0.8-1.4 Anti-coagulation therapy ? Low intensity therapy ?2.0-3.0 ? High intensity therapy ?? 2.5-3.5 Critical Value ? Greater than or equal to 5.0 Patients should be monitored for serious bleeding. ?? 05/13/2018 6:24 AM FOOD SANITARIAN 05/13/2018 6:31 AM FOOD SANITARIAN [facility] HISTORICAL RESULTS - 05/13/2018 6:50 AM FOOD SANITARIAN REDRAW ?? [employer] Deyjuanitosamuel Ary DO LAB BLOOD ORDERABLES Final Result Performing Organization Address [facility] de Phone Number [facility] HISTORICAL RESULTS * PROCALCITONIN Pre-antibiotic (05/13/2018 6:24 AM [facility] [[email or web address] Pathologist [facility] [place] Procalcitonin 0.09 0.0 - 0.24 ng/mL Comment: Guidelines for use with Community Acquired Pneumonia(CAP)- ONLY: ?? <0.1 ng/mL: Use of antibiotics is STRONGLY discouraged ?? 0.1-0.24 ng/mL: Use of antibiotics is discouraged ?? 0.25-0.5 ng/mL: Use of antibiotics is encouraged ?? >0.5 ng/mL: Use of antibiotics is STRONGLY encouraged ?? Recommend repeating every 2-3 days if initial PCT >0.24 05/13/2018 6:24 AM FOOD SANITARIAN 05/13/2018 6:31 AM FOOD SANITARIAN [facility] HISTORICAL RESULTS - 05/13/2018 7:22 AM FOOD SANITARIAN REDRAW ?? Trung Ellison Leahjessica DO LAB BLOOD ORDERABLES Final Result Performing Organization Address [facility] de Phone Number [facility] HISTORICAL RESULTS * Beta-hydroxybutyrate (05/13/2018 6:24 AM FOOD SANITARIAN) Pathologist [facility] [place] B-Hydroxybutyr ate 0.23 0.02 - 0.27 mmol/L Comment: ?Ketosis: ?> 0.27 mM ??Possible Ketoacidosis: ??> 5.00 mM 05/13/2018 6:24 AM FOOD SANITARIAN 05/13/2018 6:31 AM FOOD SANITARIAN [facility] HISTORICAL RESULTS - 05/13/2018 7:14 AM FOOD SANITARIAN REDRAW ?? Trung Mcallister DO LAB BLOOD ORDERABLES Final Result Performing Organization Address [facility] Co de Phone Number [facility] HISTORICAL RESULTS * (ABNORMAL) Phosphorus (05/13/2018 6:24 AM FOOD SANITARIAN) Phosphorus 6.6(H) 2.5 - 4.5 mg/dL 05/13/2018 7:00 AM FOOD SANITARIAN [facility] HISTORICAL RESULTS 05/13/2018 6:24 AM FOOD SANITARIAN 05/13/2018 6:31 AM FOOD SANITARIAN [facility] HISTORICAL RESULTS - 05/13/2018 7:00 AM FOOD SANITARIAN REDRAW ?? Trung Mcallister DO LAB BLOOD ORDERABLES Final Result Performing Organization Address [facility] de Phone Number [facility] HISTORICAL RESULTS * Magnesium (05/13/2018 6:24 AM FOOD SANITARIAN) Magnesium 2.4 1.6 - 2.6 mg/dL 05/13/2018 7:00 AM FOOD SANITARIAN [facility] HISTORICAL RESULTS Comment:Magnesium sulfate th erapy: 3.0-9.1 mg/dL 05/13/2018 6:24 AM FOOD SANITARIAN 05/13/2018 6:31 AM FOOD SANITARIAN [facility] HISTORICAL RESULTS - 05/13/2018 7:00 AM FOOD SANITARIAN REDRAW ?? Trung Mcallister DO LAB BLOOD ORDERABLES Final Result Performing Organization Address [facility] Co de Phone Number [facility] HISTORICAL RESULTS * B-type natriuretic peptide (05/13/2018 6:24 AM FOOD SANITARIAN) Pathologist [facility] [place] B-Natriuretic Peptide 85 0 - 100 pg/mL Comment: B Natriutetic [...] hours of bolus or infusion of nesiritide. 05/13/2018 6:24 AM FOOD SANITARIAN 05/13/2018 6:31 AM [facility] HISTORICAL RESULTS - 05/13/2018 7:39 AM FOOD SANITARIAN REDRAW ?? Trung Mcallister DO LAB BLOOD ORDERABLES Final Result Performing Organization Address [facility]/ZIP Co de Phone Number [facility] HISTORICAL RESULTS * Creatine kinase (CK), total (05/13/2018 6:24 AM FOOD SANITARIAN) [facility] Creatine Kinase 29 20 - 200 U/L 05/13/2018 6:24 AM FOOD SANITARIAN 05/13/2018 6:31 AM [facility] HISTORICAL RESULTS - 05/13/2018 7:00 AM FOOD SANITARIAN REDRAW ?? Trung Mcallister DO LAB BLOOD ORDERABLES Final Result [facility] HISTORICAL RESULTS * Lipase (05/13/2018 6:24 AM FOOD SANITARIAN) [facility] Lipase 15 13 - 60 U/L 05/13/2018 6:24 AM FOOD SANITARIAN 05/13/2018 6:31 AM [facility] HISTORICAL RESULTS - 05/13/2018 7:00 AM FOOD SANITARIAN REDRAW ?? us Trung Mcallister DO LAB BLOOD ORDERABLES Final Result [facility] HISTORICAL RESULTS * TNI with LIPID PANEL (05/13/2018 6:24 AM FOOD SANITARIAN) Troponin I < 0.300 0.000 - 0.300 ng/mL Comment: Reference using AMBIKA Chemiluminescence ? Negative: Repeat in 4-6 hours as indicated. Triglycerides 90 0 - 149 mg/dL Comment: National Lipid Association/NCEP Guidelines: ?? Normal ?< 150 mg/dL ?? Borderline high ?? 150-199 mg/dL ?? High ?200-499 mg/dL ?? Very High ? >=500 mg/dL Cholesterol 120 0 - 199 mg/dL Comment: National Lipid Association/NCEP Guidelines: Desirable ? < 200 mg/dL Borderline high: ??200-239 mg/dL High Risk: ?>=240 mg/dL HDL Cholesterol 35 mg/dL 8 7:00 AM [facility] HISTORICAL RESULTS Comment: Reference Ranges: ? Males: >=40 mg/dL ? Females: >=50 mg/dL LDL Cholesterol, Calc 67 0 - 129 mg/dL Comment: National Lipid Association/NCEP Guidelines: ??Optimal ? < 100 mg/dL ??Near Optimal ?100-129 mg/dL ??Borderline high 130-159 mg/dL ??High ?>=160 mg/dL Cholesterol/HDL Ratio 3.4 05/13/2018 7:00 AM [facility] H[facility] RESULTS Comment: Optimal ??< 3.5:1 High ? > 5:1 05/13/2018 6:24 AM FOOD SANITARIAN 05/13/2018 6:31 AM FOOD SANITARIAN Narrative [facility] HISTORICAL RESULTS - 05/13/2018 7:00 AM FOOD SANITARIAN REDRAW ?? Trung Mcallister DO LAB BLOOD ORDERABLES Final Result [facility] HISTORICAL RESULTS * (ABNORMAL) Comprehensive metabolic panel (05/13/2018 6:24 AM FOOD SANITARIAN) Sodium 143 135 - 145 mmol/L Potassium 4.8 3.3 - 5.1 mmol/L Chloride 95(L) 96 - 108 mmol/L Carbon Dioxide 40(H) 22 - 32 mmol/L Anion Gap 8 7 - 16 Glucose 90 70 - 100 mg/dL BUN 28(H) 6 - 20 mg/dL Creatinine 1.1 0.5 - 1.3 mg/dL Comment: NOTE: Estimated GFR (Cockroft-Gault) will NOT be calculated unless patient Height and Weight were entered. Also, Kidney Disease Stage (GFR) and Estimated GFR (Cockroft-Gault) will NOT be calculated if Creatinine result is <0.2. Kidney Disease Stage 73 mL/MIN Comment: NOTE; ??The GFR is an [...] or on dialysis @ Est GFR (Cockcroft-G) 87 ml/MIN 05/13/2018 7:00 AM [facility] HISTORICAL RESULTS Comment: Estimated GFR(Cockroft-Gault)is used to calculate patient medication dosage Calcium 8.8 8.6 - 10.0 mg/dL 05/13/2018 7:00 AM [facility] HISTORICAL RESULTS Total Protein 6.5 6.4 - 8.3 g/dL 05/13/2018 7:00 AM [facility] HISTORICAL RESULTS Albumin 3.6 3.5 - 5.2 g/dL 05/13/2018 7:00 AM [facility] HISTORICAL RESULTS Globulin 2.9 2.3 - 3.5 gm/dL 05/13/2018 7:00 AM [facility] HISTORICAL RESULTS Albumin/Globulin Ratio 1.2 1.1 - 1.8 05/13/2018 7:00 AM [facility] HISTORICAL RESULTS Total Bilirubin 0.6 0.0 - 1.2 mg/dL 05/13/2018 7:00 AM [facility] HISTORICAL RESULTS AST 18 0 - 40 U/L 05/13/2018 7:00 AM [facility] HISTORICAL RESULTS ALT 12 0 - 41 U/L 05/13/2018 7:00 AM [facility] HISTORICAL RESULTS Alkaline Phosphatase 66 40 - 129 U/L 05/13/2018 7:00 AM [facility] HISTORICAL RESULTS 05/13/2018 6:24 AM FOOD SANITARIAN 05/13/2018 6:31 AM FOOD SANITARIAN Narrative [facility] HISTORICAL RESULTS - 05/13/2018 7:00 AM FOOD SANITARIAN REDRAW ?? us Trung Mcallister DO LAB BLOOD ORDERABLES Final Result Performing Organization Address [facility] Phone Number [facility] HISTORICAL RESULTS * Hemoglobin A1c (05/13/2018 6:24 AM FOOD SANITARIAN) Pathologist [facility] [place] Hemoglobin A1c % 5.2 4.0 - 5.6 % 05/13/2018 6:48 AM FOOD SANITARIAN [facility] HISTORICAL RESULTS Comment: ADA 2016 GUIDELINES: ??Initial Diagnostic Criteria ? HbA1c Result: ?Interpretation: ?<5.7% ? Normal ?5.7-6.4% ?At risk for diabetes mellitus ?>=6.5% ?Consistent with diabetes mellitus ??Diabetes monitoring ? Target value (ADA Recommended) ?? <7% 05/13/2018 6:24 AM FOOD SANITARIAN 05/13/2018 6:31 AM FOOD SANITARIAN Trung Mcallister DO LAB BLOOD ORDERABLES Final Result Performing Organization Address [facility] Phone Number [facility] HISTORICAL RESULTS * MRSA PCR, surveillance (05/13/2018 5:00 AM FOOD SANITARIAN) Pathologist [facility] [place] MRSA Surveill Initial MRSA NEGATIVE NEGATIVE 05/13/2018 6:29 AM FOOD SANITARIAN [facility] HISTORICAL RESULTS Comment:MRSA target DNA sequ ences are not detected. 05/13/2018 5:00 AM FOOD SANITARIAN 05/13/2018 5:13 AM FOOD SANITARIAN Narrative [facility] HISTORICAL RESULTS - 05/13/2018 6:29 AM FOOD SANITARIAN Collected By aj Trung Mcallister DO LAB MICROBIOLOGY - G ENERAL ORDERABLES Final Result [facility] HISTORICAL RESULTS * Microbiology Specimen Report (Converted) (05/13/2018 3:29 AM FOOD SANITARIAN) 05/13/2018 3:29 AM FOOD SANITARIAN 05/13/2018 3:32 AM FOOD SANITARIAN Narrative [facility] HISTORICAL RESULTS - 05/13/2018 3:29 AM FOOD SANITARIAN Microbiology Specimen Report (Converted) SPECIMEN [id number] ?? COLLECTED: 2018-05-13 03:29:00 [id number] ?? REQ#: [id number] REQUESTING DR: Khai Wall MD ?? SOURCE: BLOOD ?? SP DESC: --- PROCEDURE --- ?--- RESULT --- ?? CULTURE BLOOD ADULT (SET OF 2) ??(Final) ??- ??Performed at [facility] ?* NO GROWTH DAY 5 - [facility] ? [address] [place] [address] ? [place] [address] ? Jamison Zarate MD Procedure Note 2018 Microbiology Specimen Report (Converted) SPECIMEN [id number] COLLECTED: 2018-05-13 03:29:00 [id number] REQ#:[id number] REQUESTING DR: Khai Wall MD SOURCE: BLOOD SP DESC: --- PROCEDURE --- --- RESULT --- CULTURE BLOOD ADULT (SET OF 2) (Final) - Performed at [facility] * NO GROWTH DAY 5 - [place] [address] Jamison Zarate MD Khai Wall MD LAB BLOOD ORDERABLES Final Result [facility] HISTORICAL RESULTS * Microbiology Specimen Report (Converted) (05/13/2018 3:20 AM FOOD SANITARIAN) 05/13/2018 3:20 AM FOOD SANITARIAN 05/13/2018 3:24 AM FOOD SANITARIAN Alex [facility] HISTORICAL RESULTS - 05/13/2018 3:20 AM FOOD SANITARIAN Microbiology Specimen Report (Converted) SPECIMEN [id number] ?? COLLECTED: 2018-05-13 03:20:00 [id number] ?? REQ#: [id number] REQUESTING DR: Khai Wall MD ?? SOURCE: BLOOD ?? SP DESC: --- PROCEDURE --- ?--- RESULT --- ?? CULTURE BLOOD ADULT (SET OF 2) ??(Final) ??- ??Performed at [facility] ?* NO GROWTH DAY 5 - [facility] ? [address] [address] ? [place] [address] ? Jamison Zarate MD Procedure Note 2018 Microbiology Specimen Report (Converted) SPECIMEN [id number] COLLECTED: 2018-05-13 03:20:00 [id number] REQ#:[id number] REQUESTING DR: Khai Wall MD SOURCE: BLOOD SP DESC: --- PROCEDURE --- --- RESULT --- CULTURE BLOOD ADULT (SET OF 2) (Final) - Performed at [facility] * NO GROWTH DAY 5 - [place] [address] Jamison Zarate MD Khai Wall MD LAB BLOOD ORDERABLES Final Result Performing Organization Address [facility] de Phone Number [facility] HISTORICAL RESULTS * Ammonia (05/13/2018 3:20 AM FOOD SANITARIAN) Ammonia 47 27 - 102 ug/dL 05/13/2018 3:52 AM FOOD SANITARIAN [facility] HISTORICAL RESULTS 05/13/2018 3:20 AM FOOD SANITARIAN 05/13/2018 3:21 AM FOOD SANITARIAN Khai Wall MD LAB BLOOD ORDERABLES Final Result Performing Organization Address [facility] Phone Number [facility] HISTORICAL RESULTS * (ABNORMAL) CBC with auto differential (05/13/2018 3:20 AM FOOD SANITARIAN) WBC 9.2 3.8 - 9.9 X10 3/ul 05/13/2018 3:44 AM FOOD SANITARIAN [employer] [facility] [employer] HISTORICAL RESULTS RBC 5.23 4.30 - 5.80 x10 6/ul 05/13/2018 3:44 AM FOOD SANITARIAN [employer] [facility] [employer] HISTORICAL RESULTS Hemoglobin 16.8 13.0 - 17.5 g/dL 05/13/2018 3:44 AM FOOD SANITARIAN [employer] [facility] [employer] HISTORICAL RESULTS Hct 57.1(H) 38.9 - 50.3 % 05/13/2018 3:45 AM FOOD SANITARIAN [employer] [facility] [employer] HISTORICAL RESULTS MCV 109.2(H) 81.3 - 96.4 fl 05/13/2018 3:44 AM FOOD SANITARIAN [employer] [facility] [employer] HISTORICAL RESULTS MCH 32.1 27.1 - 33.3 pg 05/13/2018 3:44 AM FOOD SANITARIAN [employer] [facility] [employer] HISTORICAL RESULTS MCHC 29.4(L) 32.3 - 35.7 g/dl 05/13/2018 3:44 AM [facility] HISTORICAL RESULTS RDW 14.5 11.1 - 14.9 % 05/13/2018 3:44 AM [facility] HISTORICAL RESULTS Plt Count 135(L) 150 - 400 x10 3/ul 05/13/2018 3:44 AM [facility] HISTORICAL RESULTS MPV 11.4 9.1 - 12.3 fl 05/13/2018 3:44 AM [employer] HISTORICAL RESULTS Neut % 67.8 % 05/13/2018 3:44 AM [facility] HISTORICAL RESULTS Immature Gran % 0.4 % 8 3:44 AM [facility] HISTORICAL RESULTS Lymph % 19.4 % 05/13/2018 3:44 AM FOOD SANITARIAN [employer] HISTORICAL RESULTS [place] % 12.1 % 05/13/2018 3:44 AM FOOD SANITARIAN [facility] HISTORICAL RESULTS Eos % 0.1 % 05/13/2018 3:44 AM FOOD SANITARIAN [facility] HISTORICAL RESULTS Baso % 0.2 % 05/13/2018 3:44 AM [facility] HISTORICAL RESULTS Absolute Neuts (auto) 6.2 1.7 - 6.5 x10 3/ul 05/13/2018 3:44 AM FOOD SANITARIAN [facility] HISTORICAL RESULTS Immature Gran # 0.0 0.0 - 0.1 x10 3/ul Absolute Lymphs (auto) 1.8 0.8 - 3.3 x10 3/ul 05/13/2018 3:44 AM FOOD SANITARIAN [facility] HISTORICAL RESULTS Absolute Monos (auto) 1.1(H) 0.2 - 0.8 x10 3/ul 05/13/2018 3:44 AM FOOD SANITARIAN [facility] HISTORICAL RESULTS Absolute Eos (auto) 0.0 0.0 - 0.5 x10 3/ul 05/13/2018 3:44 AM FOOD SANITARIAN [facility] HISTORICAL RESULTS Absolute Basos (auto) 0.0 0.0 - 0.1 x10 3/ul 05/13/2018 3:44 AM [facility] Nucleat RBC Rel Count 0.0 #/100WBC Absolute Nucleated RBC 0.00 0.00 - 0.01 x10 3/ul 05/13/2018 3:44 [facility] Absolute Neutrophils 6200 200 - 8000 /ul 05/13/2018 3:44 [facility] 05/13/2018 3:20 AM FOOD SANITARIAN 05/13/2018 3:24 AM [facility] [email or web address]] Khai Wall MD LAB BLOOD ORDERABLES Final Result [facility] HISTORICAL RESULTS * (ABNORMAL) BLOOD GAS w/LYTES & LACTATE (05/13/2018 3:02 AM FO[facility] SANITARIAN) Specimen Type ARTERIAL 05/13/2018 3:13 AM [facility] Puncture Site RR 05/13/2018 3:13 AM [facility] Patient Temperature 37.0 C 05/13 3:13 AM [facility] [facility] HISTORICAL RESULTS pH 7.151(LL) 7.350 - 7.450 05/13/2018 3:13 AM [facility] H[facility]ULTS Comment: CRITICAL VALUE CALLED and REPEATED. ?? at:0312 05/13/18 by:Jason Dorantes to: [id number] ?? pCO2 129.0(HH) 32.0 - 48.0 mmHg Comment: CRITICAL VALUE CALLED and REPEATED. ?? at:0312 05/13/18 by:Jason Dorantes to:[id number] ?? pO2 85.3 80.0 - 110.0 mmHg HCO3 43.1(H) 22.0 - 26.0 mmol/L Total CO2 47.0(H) 20.0 - 30.0 mmol/L Base Excess 6.6(H) -2.0 - 2.0 mmol/L Hemoglobin 17.3(H) 13.8 - 17.2 g/dL O2 Saturation 91.6 90.0 - 95.0 % ABG Carboxyhemoglobin 1.8 <3.0 % ABG Methemoglobin 0.6 <2.0 % 018 3:13 AM [facility] HISTORICAL RESULTS ABG O2 Content 22.3 17.6 - 24.3 Vol % Na+ (BLOOD GAS) 136 135 - 145 mmol/L K+ (BLOOD GAS) 4.5 3.3 - 4.9 mmol/L CA++ (ionized) BLOOD GAS 1.22 1.13 - 1.28 mmol/L GLUCOSE (BLOOD GAS) 125 65 - 199 mg/dL Lactate (BLOOD GAS) 1.0 0.5 - 2.0 mEq/L A-a O2 Difference 458.5(H) <=10.0 018 3:13 AM FOOD SANITARIAN [facility] HISTORICAL RESULTS a/A Ratio 0.2(L) >=0.8 05/13/2018 3:13 AM FOOD SANITARIAN [facility] HISTORICAL RESULTS O2 Delivery Device BIPAP 2017 3:13 AM FOOD SANITARIAN [facility] HISTORICAL RESULTS FiO2 100.0 % 05/13/2018 3:13 AM FOOD SANITARIAN [facility] HISTORICAL RESULTS Mode BiPAP 18/8 05/13/2018 3:13 AM FOOD SANITARIAN [facility] HISTORICAL RESULTS Calciner Feeder ID TRH 05/13/2018 3:13 AM FOOD SANITARIAN [facility] HISTORICAL RESULTS 05/13/2018 3:02 AM FOOD SANITARIAN 05/13/2018 3:08 AM FOOD SANITARIAN Narrative [facility] HISTORICAL RESULTS - 05/13/2018 3:13 AM FOOD SANITARIAN Conditions BIPAP ?? Source Arterial Khai Wall MD LAB BLOOD ORDERABLES Final Result [facility] HISTORICAL RESULTS * PROCEDURE - RESULT (05/13/2018 12:00 AM FOOD SANITARIAN) Narrative 05/13/2018 12:00 AM FOOD SANITARIAN Ordered by an unspecified provider. Historical Provider Final Res ult * CARDIOLOGY REPORT (05/13/2018 12:00 AM FOOD SANITARIAN) Anatomical Region Laterality Modality Other Narrative 05/13/2018 12:00 AM FOOD SANITARIAN Ordered by an unspecified provider. Historical Provider [facility] MAIDA SABA Final Result * CT Abdomen Pelvis W Contrast (05/13/2018 12:00 AM FOOD SANITARIAN) Anatomical Region Laterality Modality Body N/A Computed Tomogra phy 05/13/2018 Impressions 05/13/2018 2:50 AM FOOD SANITARIAN ??No acute findings in the abdomen or pelvis. THIS IS AN ELECTRONICALLY VERIFIED FINAL REPORT 05/13/2018 2:47 AM - Electronically signed by Mario Garcia M.D. RW D: ??05/13/2018 2:47 AM T: Report ID: [id number] Reading Location: ??[id number] [EOD] Narrative 05/13/2018 2:50 AM FOOD SANITARIAN EXAM DESCRIPTION: ??CT Abd/Pelvis W IV Contrast [...] Mario Garcia M.D. RW T: Report ID: [id number] Reading Location: [place] [id number] [EOD] us Richardson Kilgore NP IMG CT PROCEDURES Final R esult * CT Chest W Contrast (05/13/2018 12:00 AM FOOD SANITARIAN) Anatomical Region Laterality Modality Body N/A Computed Tomogra phy 05/13/2018 Impressions 05/13/2018 2:52 AM FOOD SANITARIAN ?? 1.Bibasilar consolidation or atelectasis with accompanying small bilateral pleural effusions. THIS IS AN ELECTRONICALLY VERIFIED FINAL REPORT 05/13/2018 2:49 AM - Electronically signed by Mak So D.O. D: ??05/13/2018 2:49 AM T: Report ID: [id number] Reading Location: ??[id number] [EOD] Narrative 05/13/2018 2:52 AM FOOD SANITARIAN EXAM DESCRIPTION: ??CT Chest W IV Contrast REASON FOR STUDY: ??Shortness of breath for 3 months. ??Abnormal chest radiograph. TECHNIQUE: ??CT scan of the chest performed with intravenous contrast using helical scanning technique with dynamic intravenous contrast injection. ?? Reconstructed coronal and sagittal MPR images reviewed. All images stored on PACS. Automated exposure control was used as a dose optimization technique for this examination. CONTRAST TYPE/DOSE: ??100 mL of Optiray 350 contrast were intravenously injected at the left hand. COMPARISON: ??CT chest 05/20/2017. ??Chest radiograph 05/12/2018. FINDINGS: LUNGS: There is consolidation and/or atelectasis within both lower lobes, right slightly greater than left. ??There is also mild involvement of the right middle lobe and lingula. Similar findings are present on the prior CT from 05/20/2017. Within the upper lobes there is some ill-defined ground-glass opacities with intervening regions of lung lucency. ??This can be due to mosaic attenuation from air trapping. PLEURA: There are small dependent bilateral pleural effusions. ??There is no evidence of a pneumothorax. MEDIASTINUM/KIA: No lymphadenopathy. ??Calcified subcarinal lymph node. HEART: Moderate 4 chamber cardiac enlargement. ??No pericardial effusion. VASCULATURE: Aorta is nonaneurysmal. ??Branching pattern is unremarkable. AXILLA: No adenopathy. CHEST WALL: No masses. ??No subcutaneous air. HARDWARE/LINES/TUBES: None. UPPER ABDOMEN: No acute abnormality. ??Hepatic steatosis. MUSCULOSKELETAL: Degenerative changes of the thoracic spine. ??Mild wedge deformities of lower thoracic segments may be physiologic or related to old injuries. ??No change compared to the prior. OTHER: No other significant abnormality. Procedure Note Provider, MD Richard - 10/12/2020 EXAM DESCRIPTION: CT Chest W IV Contrast REASON FOR STUDY: Shortness of breath for 3 months. Abnormal chest radiograph. TECHNIQUE: CT scan of the chest performed with intravenous contrast using helical scanning technique with dynamic intravenous contrast injection. Reconstructed coronal and sagittal MPR images reviewed. All images storedon PACS. Automated exposure control was used as a dose optimization techniquefor this examination. CONTRAST TYPE/DOSE: 100 mL of Optiray 350 contrast were intravenously injected at the left hand. COMPARISON: CT chest 05/20/2017. Chest radiograph 05/12/2018. FINDINGS: LUNGS: There is consolidation and/or atelectasis within both lower lobes, right slightly greater than left. There is also mild involvement of theright middle lobe and lingula. Similar findings are present on the prior CT from 05/20/2017. Within the upper lobes there is some ill-defined ground-glass opacitieswith intervening regions of lung lucency. This can be due to mosaicattenuation from air trapping. PLEURA: There are small dependent bilateral pleural effusions. There isno evidence of a pneumothorax. MEDIASTINUM/IKA: No lymphadenopathy. Calcified subcarinal lymph node. HEART: Moderate 4 chamber cardiac enlargement. No pericardial effusion. VASCULATURE: Aorta is nonaneurysmal. Branching pattern is unremarkable. AXILLA: No adenopathy. CHEST WALL: No masses. No subcutaneous air. HARDWARE/LINES/TUBES: None. UPPER ABDOMEN: No acute abnormality. Hepatic steatosis. MUSCULOSKELETAL: Degenerative changes of the thoracic spine. Mild wedge deformities of lower thoracic segments may be physiologic or related toold injuries. No change compared to the prior. OTHER: No other significant abnormality. IMPRESSION: 1.Bibasilar consolidation or atelectasis with accompanying small bilateral pleural effusions. THIS IS AN ELECTRONICALLY VERIFIED FINAL REPORT 05/13/2018 2:49 AM - Electronically signed by Mak So D.O. T: Report ID: [id number] Reading Location: [id number] [EOD] Marycarmen RAO IMG CT PROCEDURES Final R esult * XR Abdomen Ap 1 Vw (05/13/2018 12:00 AM FOOD SANITARIAN) Anatomical Region Laterality Modality Body, Abdomen N/A Radiographic Wendy ging 05/13/2018 Impressions 05/13/2018 5:09 PM FOOD SANITARIAN ?? 1.Tip of the OG tube extends into the right mid abdomen likely the duodenum. THIS IS AN ELECTRONICALLY VERIFIED FINAL REPORT 05/13/2018 5:06 PM - Electronically signed by José Antonio NAZARIO D: ??05/13/2018 5:06 PM T: Report ID: [id number] Reading Location: ??[id number] [EOD] Narrative 05/13/2018 5:09 PM FOOD SANITARIAN EXAM DESCRIPTION: ??Abdomen 1 View REASON FOR STUDY: ??OG tube placement today. TECHNIQUE: ??Supine radiographic view of the abdomen acquired. COMPARISON: ??Older exam 05/13/2018. FINDINGS: Tip of the OG tube extends into the right mid abdomen likely the duodenum. ?? Nonobstructive bowel gas pattern. Procedure Note Provider, MD Richard - 10/12/2020 EXAM DESCRIPTION: Abdomen 1 View REASON FOR STUDY: OG tube placement today. TECHNIQUE: Supine radiographic view of the abdomen acquired. COMPARISON: Older exam 05/13/2018. FINDINGS: Tip of the OG tube extends into the right mid abdomen likely the duodenum. Nonobstructive bowel gas pattern. IMPRESSION: 1.Tip of the OG tube extends into the right mid abdomen likely theduodenum. THIS IS AN ELECTRONICALLY VERIFIED FINAL REPORT 05/13/2018 5:06 PM - Electronically signed by José Antonio NAZARIO T: Report ID: [id number] Reading Location: [id number] [EOD] Mckay Miller MD IMG XR PROCEDURES Final Result * CT Head WO Contrast (05/13/2018 12:00 AM FOOD SANITARIAN) Anatomical Region Laterality Modality Head and Neck N/A Computed Tomogra phy 05/13/2018 Impressions 05/13/2018 2:47 AM FOOD SANITARIAN ??No acute intracranial process given motion. Sinus disease. THIS IS AN ELECTRONICALLY VERIFIED FINAL REPORT 05/13/2018 2:44 AM - Electronically signed by Jeanne Munoz M.D. JS D: ??05/13/2018 2:44 AM T: Report ID: [id number] Reading Location: ??[id number] [EOD] Narrative 05/13/2018 2:47 AM FOOD SANITARIAN EXAM DESCRIPTION: ??CT Head WO IV Contrast REASON FOR STUDY: ??fall, unsure of LOC Fall 05/12/2018, unsure of loss of consciousness, headache, right upper quadrant abdominal pain, shortness of breath for 3 months TECHNIQUE: ??Axial images acquired through the brain without intravenous contrast. ??Images stored on PACS. Automated exposure control was used as a dose optimization technique for this examination. COMPARISON: ??09/11/2017 LIMITATIONS: ??Motion artifact. FINDINGS: BRAIN: No hemorrhage, edema or mass effect. No recent infarct. Largely stable white matter. EXTRA-AXIAL SPACES: No fluid collections. No masses. ??Volume loss. CALVARIUM: No fracture. SINUSES/MASTOIDS: Mucoperiosteal thickening within the maxillary sinuses bilaterally and within the sphenoid sinus to the right of midline. ORBITS: No significant abnormality. OTHER: No other significant abnormality. Procedure Note Provider, MD Richard - 10/12/2020 EXAM DESCRIPTION: CT Head WO IV Contrast REASON FOR STUDY: fall, unsure of LOC Fall 05/12/2018, unsure of loss of consciousness, headache, right upper quadrant abdominal pain, shortness of breath for 3 months TECHNIQUE: Axial images acquired through the brain without intravenous contrast. Images stored on PACS. Automated exposure control was used as a dose optimization technique for this examination. COMPARISON: 09/11/2017 LIMITATIONS: Motion artifact. FINDINGS: BRAIN: No hemorrhage, edema or mass effect. No recent infarct. Largelystable white matter. EXTRA-AXIAL SPACES: No fluid collections. No masses. Volume loss. CALVARIUM: No fracture. SINUSES/MASTOIDS: Mucoperiosteal thickening within the maxillary sinuses bilaterally and within the sphenoid sinus to the right of midline. ORBITS: No significant abnormality. OTHER: No other significant abnormality. IMPRESSION: No acute intracranial process given motion. Sinus disease. THIS IS AN ELECTRONICALLY VERIFIED FINAL REPORT 05/13/2018 2:44 AM - Electronically signed by Jeanne NIELSEN T: Report ID: [id number] Reading Location: [id number] [EOD] Richardson Kilgore SURVEY AND 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 IMG CT PROCEDURES Final R esult * XR Abdomen Ap 1 Vw (05/13/2018 12:00 AM FOOD SANITARIAN) Anatomical Region Laterality Modality Body, Abdomen N/A Radiographic Wendy ging 05/13/2018 Impressions 05/13/2018 8:13 AM FOOD SANITARIAN ?? 1.Tip of the nasogastric tube extends into the stomach as does the proximal port. 2.Left basilar opacity, atelectasis, infiltrate and/or effusion. ??More vague right basilar opacity. THIS IS AN ELECTRONICALLY VERIFIED FINAL REPORT 05/13/2018 8:09 AM - Electronically signed by José Antonio NAZARIO D: ??05/13/2018 8:09 AM T: Report ID: [id number] Reading Location: ??[id number] [EOD] Narrative 05/13/2018 8:13 AM FOOD SANITARIAN EXAM DESCRIPTION: ??Abdomen 1 View REASON FOR STUDY: ??Patient is status post OG tube placement. TECHNIQUE: ??Supine radiographic view of the abdomen acquired. COMPARISON: ??CT earlier today. FINDINGS: The nasogastric tube extends into the stomach. ??The tip and proximal port are both seen overlying the stomach. Nonobstructive bowel gas pattern otherwise. Left basilar opacity, atelectasis, infiltrate and/or effusion. ??More vague right basilar opacity. Procedure Note Provider, MD Richard - 10/12/2020 EXAM DESCRIPTION: Abdomen 1 View REASON FOR STUDY: Patient is status post OG tube placement. TECHNIQUE: Supine radiographic view of the abdomen acquired. COMPARISON: CT earlier today. FINDINGS: The nasogastric tube extends into the stomach. The tip and proximal portare both seen overlying the stomach. Nonobstructive bowel gas pattern otherwise. Left basilar opacity, atelectasis, infiltrate and/or effusion. More vague right basilar opacity. IMPRESSION: 1.Tip of the nasogastric tube extends into the stomach as does theproximal port. 2.Left basilar opacity, atelectasis, infiltrate and/or effusion. [place] right basilar opacity. THIS IS AN ELECTRONICALLY VERIFIED FINAL REPORT 05/13/2018 8:09 AM - Electronically signed by José Antonio NAZARIO T: Report ID: [id number] Reading Location: [id number] [EOD] Trung Mcallister DO IMG XR PROCEDURES Fi nal Result * XR Chest 1 View (05/13/2018 12:00 AM FOOD SANITARIAN) Anatomical Region Laterality Modality Body, Chest N/A Radiographic Wendy ging 05/13/2018 Impressions 05/13/2018 8:11 AM FOOD SANITARIAN ?? 1.Tip of the endotracheal tube is 4.5 cm above the ezequiel. 2.Nasogastric tube extends into the stomach. 3.Again seen is moderate pulmonary edema. 4.Bands of atelectasis lower 3rd of the right chest. 5.Vague right basilar opacity and more moderate left basilar opacity may reflect infiltrate, atelectasis or effusion. ??This appearance is minimally more prominent. THIS IS AN ELECTRONICALLY VERIFIED FINAL REPORT 05/13/2018 8:08 AM - Electronically signed by José Antonio NAZARIO D: ??05/13/2018 8:08 AM T: Report ID: [id number] Reading Location: ??[id number] [EOD] Narrative 05/13/2018 8:11 AM FOOD SANITARIAN EXAM DESCRIPTION: ??Chest 1 View Portable REASON FOR STUDY: ??Patient is status post intubation. ??Shortness of breath over the past 3 months. ??Heart failure. TECHNIQUE: ??AP portable radiographic view of the chest acquired. COMPARISON: ??05/12/2018 and 09/10/2017 FINDINGS: The tip of the endotracheal tube is 4.5 cm above the ezequiel. ??Nasogastric tube extends into the stomach. Senescent change of the aortic arch. ??Cardiomegaly as was previously seen. ?? Again seen is prominence of pulmonary vasculature. ??Bands of opacity are seen of the right lower 3rd of the chest favoring atelectasis. ??There is more vague right basilar opacity. ??Prominent opacification left base obscuring left hemidiaphragm. Procedure Note Provider, Richard, - 10/12/2020 EXAM DESCRIPTION: Chest 1 View Portable REASON FOR STUDY: Patient is status post intubation. Shortness of breath over the past 3 months. Heart failure. TECHNIQUE: AP portable radiographic view of the chest acquired. COMPARISON: 05/12/2018 and 09/10/2017 FINDINGS: The tip of the endotracheal tube is 4.5 cm above the ezequiel. Nasogastrictube extends into the stomach. Senescent change of the aortic arch. Cardiomegaly as was previously seen. Again seen is prominence of pulmonary vasculature. Bands of opacity areseen of the right lower 3rd of the chest favoring atelectasis. There is morevague right basilar opacity. Prominent opacification left base obscuring left hemidiaphragm. IMPRESSION: 1.Tip of the endotracheal tube is 4.5 cm above the ezequiel. 2.Nasogastric tube extends into the stomach. 3.Again seen is moderate pulmonary edema. 4.Bands of atelectasis lower 3rd of the right chest. 5.Vague right basilar opacity and more moderate left basilar opacity may reflect infiltrate, atelectasis or effusion. This appearance is minimally more prominent. THIS IS AN ELECTRONICALLY VERIFIED FINAL REPORT 05/13/2018 8:08 AM - Electronically signed by José Antonio Taylor M.D. MJ T: Report ID: [id number] Reading Location: [id number] [EOD] Mckay Miller MD IMG XR PROCEDURES Final Result * (ABNORMAL) Hemogram with manual differential (05/12/2018 11:06 PM FOOD SANITARIAN) WBC 9.4 3.8 - 9.9 X10 3/ul 05/12/2018 11:19 PM FOOD SANITARIAN [facility] HISTORICAL RESULTS RBC 5.36 4.30 - 5.80 x10 6/ul 05/12/2018 11:19 PM FOOD SANITARIAN [facility] Given.to HISTORICAL RESULTS Hemoglobin 17.3 13.0 - 17.5 g/dL 05/12/2018 11:19 PM [facility] Adynxx HISTORICAL RESULTS Hct 58.3(H) 38.9 - 50.3 % 05/13/2018 12:20 AM [facility] RES[facility] MCV 108.8(H) 81.3 - 96.4 fl 05/12/2018 11:[address] [facility] Given.to HISTORICAL RESULTS MCH 32.3 27.1 - 33.3 pg 05/12/2018 11:[address] [facility] Given.to HISTORICAL RESULTS MCHC 29.7(L) 32.3 - 35.7 g/dl 05/12/2018 11:19 PM FOOD SANITARIAN [facility] Given.to HISTORICAL RESULTS RDW 14.3 11.1 - 14.9 % 05/12/2018 11:19 PM FOOD SANITARIAN [facility] Given[employer]to HISTORICAL RESULTS Plt Count 141(L) 150 - 400 x10 3/ul 05/12/2018 11:19 PM FOOD SANITARIAN [facility] Given.to HISTORICAL RESULTS MPV 11.1 9.1 - 12.3 fl 05/12/2018 11:19 PM FOOD SANITARIAN [facility] Given.to HISTORICAL RESULTS Neut % 72.7 % 05/12/2018 11:19 PM FOOD SANITARIAN [facility] Given.to HISTORICAL RESULTS Immature Gran % 0.4 % 8 11:19 PM FOOD SANITARIAN [facility] Given.to HISTORICAL RESULTS Lymph % 16.2 % 05/12/2018 11:19 PM FOOD SANITARIAN [facility] Given.to HISTORICAL RESULTS [place] % 10.4 % 05/12/2018 11:19 PM FOOD SANITARIAN [facility] Given.to HISTORICAL RESULTS Eos % 0.1 % 05/12/2018 11:19 PM FOOD SANITARIAN [facility] Given.to HISTORICAL RESULTS Baso % 0.2 % 05/12/2018 11:19 PM FOOD SANITARIAN [facility] Given.to HISTORICAL RESULTS Absolute Neuts (auto) 6.8(H) 1.7 - 6.5 x10 3/ul 05/12/2018 11:19 PM FOOD SANITARIAN [facility] Given.to HISTORICAL RESULTS Immature Gran # 0.0 0.0 - 0.1 x10 3/ul 05/12/2018 11:19 PM FOOD SANITARIAN [facility] Given.to HISTORICAL RESULTS Absolute Lymphs (auto) 1.5 0.8 - 3.3 x10 3/ul Absolute Monos (auto) 1.0(H) 0.2 - 0.8 x10 3/ul 05/12/2018 11:19 PM FOOD SANITARIAN [facility] HISTORICAL RESULTS Absolute Eos (auto) 0.0 0.0 - 0.5 x10 3/ul 05/12/2018 11:19 PM FOOD SANITARIAN [facility] HISTORICAL RESULTS Absolute Basos (auto) 0.0 0.0 - 0.1 x10 3/ul 05/12/2018 11:19 PM FOOD SANITARIAN [facility] HISTORICAL RESULTS Nucleat RBC Rel Count 0.0 #/100WBC Absolute Nucleated RBC 0.00 0.00 - 0.01 x10 3/ul Platelet Evaluation AGREE AGREE Comment:Slide review of plat elets correlates with instrument count. Anisocytosis 1+ Macrocytosis 3+ Toxic Granulation 1+ Absolute Neutrophils 6800 200 - 8000 /ul 05/12/2018 11:0 6 PM FOOD SANITARIAN 05/12/2018 11:11 PM FOOD SANITARIAN Richardson Kilgore SURVEY AND 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 LAB BLOOD ORDERABLES Lizzy l Result [facility] HISTORICAL RESULTS * Lipase (05/12/2018 11:06 PM FOOD SANITARIAN) Lipase 19 13 - 60 U/L 05/12/2018 11:0 6 PM FOOD SANITARIAN 05/12/2018 11:11 PM FOOD SANITARIAN Richardson Kilgore SURVEY AND 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 LAB BLOOD ORDERABLES Lizzy l Result [facility] HISTORICAL RESULTS * (ABNORMAL) Comprehensive metabolic panel (05/12/2018 11:06 PM FOOD SANITARIAN) [facility] Sodium 142 135 - 145 mmol/L Potassium 5.1 3.3 - 5.1 mmol/L Chloride 93(L) 96 - 108 mmol/L Carbon Dioxide 41(H) 22 - 32 mmol/L Anion Gap 8 7 - 16 Glucose 125(H) 70 - 100 mg/dL BUN 25(H) 6 - 20 mg/dL Creatinine 1.1 0.5 - 1.3 mg/dL Comment: NOTE: Estimated GFR (Cockroft-Gault) will NOT be calculated unless patient Height and Weight were entered. Also, Kidney Disease Stage (GFR) and Estimated GFR (Cockroft-Gault) will NOT be calculated if Creatinine result is <0.2. Kidney Disease Stage 73 mL/MIN Comment: NOTE; ??The GFR is an [...] or on dialysis @ Est GFR (Cockcroft-G) 87 ml/MIN Comment: Estimated GFR(Cockroft-Gault)is used to calculate patient medication dosage Calcium 9.2 8.6 - 10.0 mg/dL Total Protein 6.7 6.4 - 8.3 g/dL Albumin 3.6 3.5 - 5.2 g/dL Globulin 3.1 2.3 - 3.5 gm/dL Albumin/Globulin Ratio 1.2 1.1 - 1.8 Total Bilirubin 0.7 0.0 - 1.2 mg/dL AST 21 0 - 40 U/L ALT 13 0 - 41 U/L Alkaline Phosphatase 64 40 - 129 U/L 05/12/2018 11:0 6 PM FOOD SANITARIAN 05/12/2018 11:11 PM FOOD SANITARIAN us Richardson Kilgore SURVEY AND 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 LAB BLOOD ORDERABLES Lizzy l Result [facility] HISTORICAL RESULTS * XR Chest 1 View (05/12/2018 12:00 AM FOOD SANITARIAN) Anatomical Region Laterality Modality Body, Chest N/A Radiographic Wendy ging 05/12/2018 Impressions 05/13/2018 12:05 AM FOOD SANITARIAN ??Findings concerning for fluid overload. ??Consider infiltrates. ?? Follow-up. THIS IS AN ELECTRONICALLY VERIFIED FINAL REPORT 05/13/2018 12:02 AM - Electronically signed by Jeanne Munoz M.D. JS D: ??05/13/2018 12:02 AM T: Report ID: [id number] Reading Location: ??[id number] [EOD] Narrative 05/13/2018 12:05 AM FOOD SANITARIAN EXAM DESCRIPTION: ??Chest 1 View REASON FOR STUDY: ??SOB X 3 Months, pt is on home O2 but has not seen a Dr recently. ??He is unable to stay awake. TECHNIQUE: ??Portable upright AP radiographic view of the chest acquired. COMPARISON: ??09/10/2017 FINDINGS: LUNGS/PLEURA: Bilateral pulmonary airspace opacities are most obvious at the mid and lower lungs, slightly worse on the left. ??Left pleural fluid suggested. ??No pneumothorax. HEART/MEDIASTINUM: Cardiomegaly. ??No superior mediastinal widening. ??Pulmonary vascular congestion HARDWARE/LINES/TUBES: None. BONES: No acute fracture or interval change in chronic findings. OTHER: No other significant finding. Procedure Note Provider, MD Richard - 10/12/2020 EXAM DESCRIPTION: Chest 1 View REASON FOR STUDY: SOB X 3 Months, pt is on home O2 but has not seen a Dr recently. He is unable to stay awake. TECHNIQUE: Portable upright AP radiographic view of the chest acquired. COMPARISON: 09/10/2017 FINDINGS: LUNGS/PLEURA: Bilateral pulmonary airspace opacities are most obvious atthe mid and lower lungs, slightly worse on the left. Left pleural fluid suggested. No pneumothorax. HEART/MEDIASTINUM: Cardiomegaly. No superior mediastinal widening.Pulmonary vascular congestion HARDWARE/LINES/TUBES: None. BONES: No acute fracture or interval change in chronic findings. OTHER: No other significant finding. IMPRESSION: Findings concerning for fluid overload. Considerinfiltrates. Follow-up. THIS IS AN ELECTRONICALLY VERIFIED FINAL REPORT 05/13/2018 12:02 AM - Electronically signed by Jeanne NIELSEN T: Report ID: [id number] Reading Location: [id number] [EOD] Richardson Kilgore SURVEY AND 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 IMG XR PROCEDURES Final R esult * XR Hip Right 2 or 3 Views (05/12/2018 12:00 AM FOOD SANITARIAN) Anatomical Region Laterality Modality Lower Extremities, Hip, Pelvis Right R adiographic Imaging 05/12/2018 Impressions 05/13/2018 12:05 AM FOOD SANITARIAN ??No acute osseous abnormality. THIS IS AN ELECTRONICALLY VERIFIED FINAL REPORT 05/13/2018 12:01 AM - Electronically signed by Jeanne NIELSEN D: ??05/13/2018 12:01 AM T: Report ID: [id number] Reading Location: ??[id number] [EOD] Narrative 05/13/2018 12:05 AM FOOD SANITARIAN EXAM DESCRIPTION: Hip RT 2 View Min REASON FOR STUDY: ??Fell tonight, landed on rt hip, pain, injury to hip TECHNIQUE: ??AP and frog-leg view of the right hip. COMPARISON: ??None available FINDINGS: BONES/JOINTS: No acute fracture or dislocation. No suspicious bone lesion. ?? Degenerative joint disease is diffuse with joint space narrowing and osteophyte formation. SOFT TISSUES: Right pelvic phlebolith. OTHER: No other significant finding. Procedure Note Provider, MD Richard - 10/12/2020 EXAM DESCRIPTION: Hip RT 2 View Min REASON FOR STUDY: Fell tonight, landed on rt hip, pain, injury to hip TECHNIQUE: AP and frog-leg view of the right hip. COMPARISON: None available FINDINGS: BONES/JOINTS: No acute fracture or dislocation. No suspicious bone lesion. Degenerative joint disease is diffuse with joint space narrowing and osteophyte formation. SOFT TISSUES: Right pelvic phlebolith. OTHER: No other significant finding. IMPRESSION: No acute osseous abnormality. THIS IS AN ELECTRONICALLY VERIFIED FINAL REPORT 05/13/2018 12:01 AM - Electronically signed by Jeanne NicholeD. JS T: Report ID: [id number] Reading Location: [id number] [EOD] Richardson Kilgore NP IMG XR PROCEDURES Final R esult documented in this encounter Visit Diagnoses Diagnosis Acute and chronic respiratory failure with hypoxia (CMS/HCC) (HCC) Acute and chronic respiratory failure with hypercapnia (CMS/HCC) (HCC) Chronic obstructive pulmonary disease with acute exacerbation (HCC) Chronic obstructive pulmonary disease with acute lower respiratory infection (HCC) Pneumonia Pneumonia, organism unspecified Metabolic encephalopathy Acute respiratory distress syndrome (CMS/HCC) (HCC) Pulmonary insufficiency following trauma and surgery Encounter for immunization Paroxysmal atrial fibrillation (CMS/HCC) (HCC) Atrial fibrillation Hypertensive heart disease with heart failure (CMS/HCC) (HCC) Unspecified hypertensive heart disease with heart failure Chronic diastolic heart failure (HCC) Chronic diastolic heart failure Type 2 diabetes mellitus with diabetic neuropathy (CMS/HCC) (HCC) Polyneuropathy Unspecified hereditary and idiopathic peripheral neuropathy Morbid (severe) obesity with alveolar hypoventilation (HCC) Body mass index (BMI) of 45.0-49.9 in adult (HCC) Cigarette nicotine dependence, uncomplicated Patient's other noncompliance with medication regimen Other chronic pain Acquired absence of other specified parts of digestive tract residential current use of aspirin 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
--- OUTSIDE RECORDS SUMMARY | 2024-05-14 16:53 | XMS_ITS | Encounter Summary ---
Author Organization [facility] Healthcare Address [address] [place] [id number] Care Team Providers Care Manager Switch Name Role Phone No, Physician Primary Care Provider [phone] Encounter Details Date Type Department Care Team (Latest Contact Info) Description 09/02/2017 1:30 PM CDT - 09/14/2017 2:03 PM CDT Hospital Encounter [facility] Arsenio Easley MD [address] [place] [address] Acute and chronic respiratory failure with hypoxia (CMS/HCC); Acute on chronic diastolic congestive heart failure (CMS/HCC); Encephalopathy; Pneumonia; Hypertensive heart disease with heart failure (CMS/HCC); Type 2 diabetes mellitus with diabetic peripheral angiopathy without gangrene (CMS/HCC); Paroxysmal atrial fibrillation (CMS/HCC); Body mass index (BMI) of 45.0-49.9 in adult (CMS/HCC); Morbid (severe) obesity with alveolar hypoventilation (CMS/HCC); Hyperlipidemia; Obstructive sleep apnea; Osteoarthritis; Personal history of nicotine dependence; Pain in left shoulder; Acute and chronic respiratory failure with hypercapnia (CMS/HCC) Social History Tobacco Use Types Packs/Day Years Used Date Smoking Tobacco: Never Assessed Sex and Gender Information Value Date Recorded Sex Assigned at Not on file Legal Sex Male 8:36 AM CDT Gender Identity Not on file Sexual Orientation Not on file documented as of this encounter Last Filed Vital Signs Vital Sign Reading Time Taken Comments Blood Pressure 107/67 09/05/2017 3:02 PM CDT Pulse 80 09/05/2017 3:02 PM CDT Temperature 36.8 ??C (98.3 ??F) 09/05/2017 3:02 PM CD T Respiratory Rate - - Oxygen Saturation 93% 09/05/2017 3:02 PM CDT Inhaled Oxygen Concentration - - Weight 149.9 kg (330 lb 8 oz) 09/05/2017 3:02 PM CDT Height 182.9 cm (6') 09/05/2017 3:02 PM CDT Body Mass Index 44.82 09/05/2017 3:02 PM CDT documented in this encounter Plan of Treatment Not on file documented as of this encounter Procedures Procedure Name Priority Date/Time Associated Diagnosis Comments CBC WITH AUTO DIFFERENTIAL Routine 09/14/2017 7:42 AM CDT B-TYPE NATRIURETIC PEPTIDE Routine 09/14/2017 7:42 AM CDT MAGNESIUM Routine 09/14/2017 7:42 AM CDT BASIC METABOLIC PANEL Routine 09/14/2017 7:42 AM CDT CBC WITH AUTO DIFFERENTIAL Routine 09/13/2017 7:50 AM CDT OXYGEN SATURATION, ARTERIAL Routine 09/13/2017 7:50 AM CDT B-TYPE NATRIURETIC PEPTIDE Routine 09/13/2017 7:50 AM CDT MAGNESIUM Routine 09/13/2017 7:50 AM CDT BASIC METABOLIC PANEL Routine 09/13/2017 7:50 AM CDT METHYLMALONIC ACID, SERUM Routine 09/13/2017 6:50 AM CDT B-TYPE NATRIURETIC PEPTIDE Routine 09/13/2017 6:50 AM CDT MAGNESIUM Routine 09/13/2017 6:50 AM CDT FOLATE Routine 09/13/2017 6:50 AM CDT VITAMIN B12 Routine 09/13/2017 6:50 AM CDT CBC WITH AUTO DIFFERENTIAL Routine 09/12/2017 6:15 AM CDT PHOSPHORUS Routine 09/12/2017 6:15 AM CDT B-TYPE NATRIURETIC PEPTIDE Routine 09/12/2017 6:15 AM CDT MAGNESIUM Routine 09/12/2017 6:15 AM CDT BASIC METABOLIC PANEL Routine 09/12/2017 6:15 AM CDT PHOSPHORUS Routine 09/11/2017 5:51 AM CDT MAGNESIUM Routine 09/11/2017 5:51 AM CDT DIGOXIN LEVEL Routine 09/11/2017 5:51 AM CDT BASIC METABOLIC PANEL Routine 09/11/2017 5:[address] STROKE PROTOCOL WO CONTRAST Routine 09/11/2017 12:00 AM CDT MRI BRAIN WO CONTRAST Routine 09/11/2017 12:00 AM CDT XR CHEST 1 VIEW Routine 09/10/2017 6:02 AM CDT CBC WITH AUTO DIFFERENTIAL Routine 09/10/2017 4:37 AM CDT BASIC METABOLIC PANEL Routine 09/10/2017 4:37 AM CDT CBC WITH AUTO DIFFERENTIAL Routine 09/09/2017 5:07 AM CDT BASIC METABOLIC PANEL Routine 09/09/2017 5:07 AM CDT XR SHOULDER LEFT 2 OR MORE VIEWS Routine 09/08/2017 12:21 PM CDT BLOOD GAS W/LYTES & LACTATE Routine 09/08/2017 9:31 AM CDT PROCALCITONIN PRE-ANTIBIOTIC Routine 09/08/2017 4:59 AM CDT CBC WITH AUTO DIFFERENTIAL Routine 09/08/2017 4:59 AM CDT MAGNESIUM Routine 09/08/2017 4:59 AM CDT BASIC METABOLIC PANEL Routine 09/08/2017 4:59 AM CDT XR CHEST 1 VIEW Routine 09/08/2017 12:00 AM CDT CBC WITH AUTO DIFFERENTIAL Routine 09/07/2017 4:26 AM CDT MAGNESIUM Routine 09/07/2017 4:26 AM CDT BASIC METABOLIC PANEL Routine 09/07/2017 4:26 AM CDT BASIC METABOLIC PANEL Routine 09/06/2017 6:20 PM CDT CBC WITH AUTO DIFFERENTIAL Routine 09/06/2017 4:25 AM CDT BASIC METABOLIC PANEL Routine 09/06/2017 4:25 AM CDT BLOOD GAS W/LYTES & LACTATE Routine 09/05/2017 9:07 PM CDT TROPONIN I Routine 09/05/2017 8:38 PM CDT CBC WITH AUTO DIFFERENTIAL Routine 09/05/2017 4:30 AM CDT BASIC METABOLIC PANEL Routine 09/05/2017 4:30 AM CDT XR CHEST 1 VIEW Routine 09/05/2017 12:00 AM CDT CBC WITH AUTO DIFFERENTIAL Routine 09/04/2017 4:29 AM CDT BASIC METABOLIC PANEL Routine 09/04/2017 4:29 AM CDT BASIC METABOLIC PANEL Routine 09/03/2017 3:51 PM CDT BLOOD GAS (INCLUDES COOX) Routine 09/03/2017 4:59 AM CDT PROCALCITONIN POST-ANTIBIOTIC Routine 09/03/2017 4:45 AM CDT CBC WITH AUTO DIFFERENTIAL Routine 09/03/2017 4:45 AM CDT B-TYPE NATRIURETIC PEPTIDE Routine 09/03/2017 4:45 AM CDT HEMOGLOBIN A1C Routine 09/03/2017 4:45 AM CDT BASIC METABOLIC PANEL Routine 09/03/2017 4:45 AM CDT XR CHEST 1 VIEW Routine 09/03/2017 12:00 AM CDT STREP PNEUMONIAE AG, URINE Routine 09/02/2017 7:00 PM CDT LEGIONELLA PNEUMOPHILIA ANTIGEN, URINE Routine 09/02/2017 7:00 PM CDT INFLUENZA VIRUS PCR, CDR Routine 09/02/2017 6:50 PM CDT MYCOPLASMA PNEUMONIAE ANTIBODY, IGM Routine 09/02/2017 6:40 PM CDT TROPONIN I Routine 09/02/2017 6:12 PM CDT MICROBIOLOGY SPECIMEN REPORT (CONVERTED) Routine 09/02/2017 4:22 PM CDT BLOOD GAS (INCLUDES COOX) Routine 09/02/2017 3:47 PM CDT INFECTION PREVENTION MRSA ONLY (STAPHYLOCOCCUS AUREUS) PCR Routine 09/02/2017 1:55 PM CDT XR CHEST 1 VIEW Routine 09/02/2017 12:53 PM CDT MICROBIOLOGY SPECIMEN REPORT (CONVERTED) Routine 09/02/2017 12:36 PM CDT MICROBIOLOGY SPECIMEN REPORT (CONVERTED) Routine 09/02/2017 12:32 PM CDT BLOOD GAS W/LYTES & LACTATE Routine 09/02/2017 12:26 PM CDT PROCALCITONIN PRE-ANTIBIOTIC Routine 09/02/2017 12:20 PM CDT TNI WITH LIPID PANEL Routine 09/02/2017 12:20 PM CDT CBC WITH AUTO DIFFERENTIAL Routine 09/02/2017 12:20 PM CDT TSH Routine 09/02/2017 12:20 PM CDT B-TYPE NATRIURETIC PEPTIDE Routine 09/02/2017 12:20 PM CDT DIGOXIN LEVEL Routine 09/02/2017 12:20 PM CDT COMPREHENSIVE METABOLIC PANEL Routine 09/02/2017 12:20 PM CDT XR CHEST 1 VIEW Routine 09/02/2017 12:00 AM CDT documented in this encounter Results * Magnesium (09/14/2017 7:42 AM CDT) Magnesium 2.1 1.6 - 2.6 mg/dL 09/14/2017 8:42 AM CDT [facility] HISTORICAL RESULTS Comment:Magnesium sulfate th erapy: 3.0-9.1 mg/dL 09/14/2017 7:42 AM CDT 09/14/2017 8:06 AM CDT us Bhavesh Duffy LAB BLOOD ORDERABLES Final Resu lt [facility] HISTORICAL RESULTS * (ABNORMAL) CBC with auto differential (09/14/2017 7:42 AM CDT) WBC 6.8 3.5 - 10.5 x10 3/ul 09/14/2017 8:10 AM CDT [facility] HISTORICAL RESULTS RBC 5.25 4.11 - 5.71 x10 6/ul 09/14/2017 8:10 AM CDT [facility] HISTORICAL RESULTS Hemoglobin 16.4 13.0 - 17.0 g/dL 09/14/2017 8:10 AM CDT [facility] [employer] HISTORICAL RESULTS Hct 51.1(H) 38.2 - 48.5 % 09/14/2017 8:10 AM CDT [facility] HISTORICAL RESULTS MCV 97.3(H) 80.0 - 97.0 fl 09/14/2017 8:10 AM CDT [facility] [employer] HISTORICAL RESULTS MCH 31.2 27.0 - 31.2 pg 09/14/2017 8:10 AM CDT [facility] [employer] [facility] HISTORICAL RESULTS MCHC 32.1 31.8 - 35.4 g/dl 09/14/2017 8:10 AM CDT [employer] HISTORICAL RESULTS RDW 14.1 11.6 - 14.8 % 09/14/2017 8:10 AM CDT [employer] HISTORICAL RESULTS Plt Count 161 150 - 450 X10 3/ul 09/14/2017 8:10 AM CDT [facility] [employer] HISTORICAL RESULTS MPV 11.6(H) 7.4 - 10.4 fl 09/14/2017 8:10 AM CDT [employer] HISTORICAL RESULTS Neut % 47.0 37.0 - 85.0 % 09/14/2017 8:10 AM CDT [facility] [employer] HISTORICAL RESULTS Immature Gran % 0.6 0.0 - 3.0 % 09/14/2017 8:10 AM CDT [facility] [employer] HISTORICAL RESULTS Lymph % 36.2 5.0 - 45.0 % 09/14/2017 8:10 AM CDT [facility] [employer] HISTORICAL RESULTS [place] % 13.2 3.0 - 15.0 % 09/14/2017 8:10 AM CDT [facility] [employer] HISTORICAL RESULTS Eos % 2.7 0.0 - 7.0 % 09/14/2017 8:10 AM CDT [facility] [employer] HISTORICAL RESULTS Baso % 0.3 0.0 - 2.0 % Absolute Neuts (auto) 3.2 1.7 - 8.7 x10 3/ul Immature Gran # 0.0 0.0 - 0.3 x10 3/ul Absolute Lymphs (auto) 2.5 0.2 - 4.6 x10 3/ul Absolute Monos (auto) 0.9 0.1 - 1.5 x10 3/ul Absolute Eos (auto) 0.2 0.0 - 0.7 x10 3/ul Absolute Basos (auto) 0.0 0.0 - 0.2 x10 3/ul Nucleat RBC Rel Count 0.0 0 - 3 #/100WBC Absolute Nucleated RBC 0.00 x10 3/ul Absolute Neutrophils 3200 200 - 8000 /ul 09/14/2017 7:42 AM CDT 09/14/2017 8:06 AM CDT us Bhavesh Duffy LAB BLOOD ORDERABLES Final Resu lt [facility] HISTORICAL RESULTS * B-type natriuretic peptide (09/14/2017 7:42 AM CDT) B-Natriuretic Peptide 65 0 - 100 pg/mL 09/14/2017 8:46 AM CDT [facility] HISTORICAL RESULTS Comment: B Natriutetic Peptide METHOD: [...] hours of bolus or infusion of nesiritide. 09/14/2017 7:42 AM CDT 09/14/2017 8:06 AM CDT us Bhavesh Duffy LAB BLOOD ORDERABLES Final Resu lt [facility] HISTORICAL RESULTS * (ABNORMAL) Basic metabolic panel (09/14/2017 7:42 AM CDT) Sodium 140 135 - 145 mmol/L Potassium 5.1 3.3 - 5.1 mmol/L Chloride 96 96 - 108 mmol/L Carbon Dioxide 39(H) 22 - 32 mmol/L Anion Gap 5(L) 7 - 16 Glucose 101(H) 70 - 100 mg/dL BUN 19 6 [...] or on dialysis @ Est GFR (Cockcroft-G) 240 ml/MIN 09/14/2017 8:42 AM T [facility] [employer] HISTORICAL RESULTS Comment: Estimated GFR(Cockroft-Gault)is used to calculate patient medication dosage Calcium 9.7 8.6 - 10.0 mg/dL 09/14/2017 8:42 AM T [facility] [employer] HISTORICAL RESULTS 09/14/2017 7:42 AM CDT 09/14/2017 8:06 AM CDT us Bhavesh Duffy LAB BLOOD ORDERABLES Final Resu lt [facility] HISTORICAL RESULTS * Oxygen saturation, arterial (09/13/2017 7:50 AM CDT) Specimen Type Oximeter 09/13/2017 7:52 AM T [facility] [employer] HISTORICAL RESULTS Puncture Site FINGER 09/13/2017 7:52 AM T [facility] [employer] HISTORICAL RESULTS O2 Sat Pulse Oximetry 94.0 90.0 - 95 % O2 Delivery Device OXYMIZER Liter Flow 6.0 FiO2 > 44.0 % Front End Software Developer ID [email or web address] 09/13/2017 7:50 AM CDT 09/13/2017 7:[address] MD LAB BLOOD ORDERABLES F inal Result [facility] HISTORICAL RESULTS * Magnesium (09/13/2017 7:50 AM CDT) Pathologist [facility] Magnesium 2.0 1.6 - 2.6 mg/dL Comment:Magnesium sulfate th erapy: 3.0-9.1 mg/dL 09/13/2017 7:50 AM CDT 09/13/2017 7:54 AM CDT us Bhavesh Duffy LAB BLOOD ORDERABLES Final Resu lt Performing Organization Address City/[facility]/ZIP Co de Phone Number [facility] HISTORICAL RESULTS * (ABNORMAL) CBC with auto differential (09/13/2017 7:50 AM CDT) WBC 6.4 3.5 - 10.5 x10 3/ul RBC 5.26 4.11 - 5.71 x10 6/ul Hemoglobin 16.3 13.0 - 17.0 g/dL Hct 52.0(H) 38.2 - 48.5 % MCV 98.9(H) 80.0 - 97.0 fl MCH 31.0 27.0 - 31.2 pg MCHC 31.3(L) 31.8 - 35.4 g/dl 09/13/2017 8:09 AM [facility] RES[facility] RDW 14.1 11.6 - 14.8 % 09/13/2017 8:09 AM [facility] HISTORICAL RESULTS Plt Count 165 150 - 450 X10 3/ul 09/13/2017 8:09 AM [facility] HISTORICAL RESULTS MPV 11.7(H) 7.4 - 10.4 fl 09/13/2017 8:09 AM [facility] HISTORICAL RESULTS Neut % 44.9 37.0 - 85.0 % 09/13/2017 8:09 AM [facility] HISTORICAL RESULTS Immature Gran % 0.8 0.0 - 3.0 % 09/13/2017 8:09 AM [facility] HISTORICAL RESULTS Lymph % 38.0 5.0 - 45.0 % 09/13/2017 8:09 AM [facility] HISTORICAL RESULTS [place] % 13.2 3.0 - 15.0 % 09/13/2017 8:09 AM [facility] HISTORICAL RESULTS Eos % 2.8 0.0 - 7.0 % 09/13/2017 8:09 AM [facility] HISTORICAL RESULTS Baso % 0.3 0.0 - 2.0 % 09/13/2017 8:09 AM [facility] HISTORICAL RESULTS Absolute Neuts (auto) 2.9 1.7 - 8.7 x10 3/ul 09/13/2017 8:09 AM [facility] HISTORICAL RESULTS Immature Gran # 0.1 0.0 - 0.3 x10 3/ul 09/13/2017 8:09 AM [facility] HISTORICAL RESULTS Absolute Lymphs (auto) 2.5 0.2 - 4.6 x10 3/ul 09/13/2017 8:09 AM [facility] HISTORICAL RESULTS Absolute Monos (auto) 0.9 0.1 - 1.5 x10 3/ul 09/13/2017 8:09 AM CDT [facility] HISTORICAL RESULTS Absolute Eos (auto) 0.2 0.0 - 0.7 x10 3/ul Absolute Basos (auto) 0.0 0.0 - 0.2 x10 3/ul Nucleat RBC Rel Count 0.0 0 - 3 #/100WBC Absolute Nucleated RBC 0.00 x10 3/ul Absolute Neutrophils 3000 200 - 8000 /ul 09/13/2017 7:50 AM CDT 09/13/2017 7:54 AM CDT Bhavesh Duffy LAB BLOOD ORDERABLES Final Resu lt Performing Organization Address [facility] de Phone Number [facility] HISTORICAL RESULTS * B-type natriuretic peptide (09/13/2017 7:50 AM CDT) B-Natriuretic Peptide 55 0 - 100 pg/mL Comment: B Natriutetic Peptide METHOD: ??[employer] XP using AFIRCA. Decision threshold of 100 pg/mL has been [...] hours of bolus or infusion of nesiritide. 09/13/2017 7:50 AM CDT 09/13/2017 7:54 AM CDT us Bhaevsh Duffy LAB BLOOD ORDERABLES Final Resu lt Performing Organization Address [facility] Co de Phone Number [facility] HISTORICAL RESULTS * (ABNORMAL) Basic metabolic panel (09/13/2017 7:50 AM CDT) [facility] Sodium 141 135 - 145 mmol/L Potassium 5.0 3.3 - 5.1 mmol/L Chloride 93(L) 96 - 108 mmol/L Carbon Dioxide 42(H) 22 - 32 mmol/L Anion Gap 6(L) 7 - 16 Glucose 104(H) 70 - 100 mg/dL BUN 18 6 - 20 mg/dL Creatinine 0.6 0.5 [...] or on dialysis @ Est GFR (Cockcroft-G) 200 ml/MIN 09/13/2017 8:25 AM CDT [facility] HISTORICAL RESULTS Comment: Estimated GFR(Cockroft-Gault)is used to calculate patient medication dosage Calcium 9.3 8.6 - 10.0 mg/dL 09/13/2017 8:25 AM CDT [facility] HISTORICAL RESULTS 09/13/2017 7:50 AM CDT 09/13/2017 7:54 AM CDT Bhavesh Duffy LAB BLOOD ORDERABLES Final Resu lt Performing Organization Address [facility] de Phone Number [facility] HISTORICAL RESULTS * Vitamin B12 (09/13/2017 6:50 AM CDT) Vitamin B12 942 230 - 1250 pg/mL 09/13/2017 7:59 AM CDT [facility] HISTORICAL RESULTS 09/13/2017 6:5 0 AM CDT 09/13/2017 7:16 AM CDT Bhavesh Duffy LAB BLOOD ORDERABLES Final Resu lt Performing Organization Address [facility] de Phone Number [facility] HISTORICAL RESULTS * Methylmalonic acid, serum (09/13/2017 6:50 AM CDT) Methylmalonic Acid 0.30 0.00 - 0.40 umol/L 09/15/2017 6:42 AM CDT [facility] HISTORICAL RESULTS Comment: INTERPRETIVE INFORMATION: MMA Serum/Plasma, ?Vitamin B12 Status ?? Test developed and characteristics determined by [facility] ?? [facility]. See Compliance Statement B: [facility] ?? Performed by [employer], ?? [address] [facility] [facility] [address] ?? [email or web address] Andrea MD, Lab. Director ?? 09/13/2017 6:50 AM CDT 09/13/2017 7:16 AM CDT Bhavesh Duffy LAB BLOOD ORDERABLES Final Resu lt Performing Organization Address [facility]/State/ZIP Co de Phone Number [facility] HISTORICAL RESULTS * Folate (09/13/2017 6:50 AM CDT) Pathologist [facility] Folate 13.6 ng/mL 09/13/2017 7:59 AM CDT [facility] HISTORICAL RESULTS Comment: Reference Range ??> 5.0 ng/mL Folate has been standardized against the WHO International Standard [facility] code: 03/178 09/13/2017 6:50 AM CDT 09/13/2017 7:16 AM CDT us Bhavesh Duffy LAB BLOOD ORDERABLES Final Resu lt Performing Organization Address [facility] Co de Phone Number [facility] HISTORICAL RESULTS * Magnesium (09/13/2017 6:50 AM CDT) Pathologist [facility] Magnesium 2.0 1.6 - 2.6 mg/dL 09/13/2017 8:12 AM CDT [facility] HISTORICAL RESULTS Comment:Magnesium sulfate th erapy: 3.0-9.1 mg/dL 09/13/2017 6:50 AM CDT 09/13/2017 7:16 AM CDT Bhavesh Duffy LAB BLOOD ORDERABLES Final Resu lt Performing Organization Address [facility]/State/[facility] Co de Phone Number [facility] HISTORICAL RESULTS * B-type natriuretic peptide (09/13/2017 6:50 AM CDT) Pathologist [facility] B-Natriuretic Peptide 51 0 - 100 pg/mL 09/13/2017 8:05 AM CDT [facility] HISTORICAL RESULTS Comment: B Natriutetic Peptide METHOD: [...] hours of bolus or infusion of nesiritide. 09/13/2017 6:50 AM CDT 09/13/2017 7:16 AM CDT us Bhavesh Duffy LAB BLOOD ORDERABLES Final Resu lt Performing Organization Address [facility] Co de Phone Number [facility] HISTORICAL RESULTS * (ABNORMAL) Phosphorus (09/12/2017 6:15 AM CDT) Phosphorus 4.9(H) 2.5 - 4.5 mg/dL 09/12/2017 7:12 AM CDT [facility] HISTORICAL RESULTS 09/12/2017 6:15 AM CDT 09/12/2017 6:48 AM CDT us Symone De Souza [employer]AT[employer] SUPERVISOR LAB BLOOD ORDERABLES Final Result Performing Organization Address [facility] Co de Phone Number [facility] HISTORICAL RESULTS * Magnesium (09/12/2017 6:15 AM CDT) Magnesium 2.0 1.6 - 2.6 mg/dL 09/12/2017 7:12 AM CDT [facility] HISTORICAL RESULTS Comment:Magnesium sulfate th erapy: 3.0-9.1 mg/dL 09/12/2017 6:15 AM CDT 09/12/2017 6:48 AM CDT us Symone De Souza [employer]AT[employer] SUPERVISOR LAB BLOOD ORDERABLES Final Result Performing Organization Address [facility]/ZIP Co de Phone Number [facility] HISTORICAL RESULTS * B-type natriuretic peptide (09/12/2017 6:15 AM CDT) Pathologist [facility] B-Natriuretic Peptide 53 0 - 100 pg/mL Comment: B Natriutetic [...] hours of bolus or infusion of nesiritide. 09/12/2017 6:15 AM CDT 09/12/2017 6:48 AM CDT Symone De Souza [employer]AT[employer] SUPERVISOR LAB BLOOD ORDERABLES Final Result [facility] HISTORICAL RESULTS * (ABNORMAL) Basic metabolic panel (09/12/2017 6:15 AM CDT) [facility] Sodium 140 135 - 145 mmol/L Potassium 4.4 3.3 - 5.1 mmol/L Chloride 93(L) 96 - 108 mmol/L Carbon Dioxide 38(H) 22 - 32 mmol/L Anion Gap 9 7 - 16 Glucose 107(H) 70 - 100 mg/dL BUN 17 6 - 20 mg/dL Creatinine 0.5 0.5 [...] or on dialysis @ Est GFR (Cockcroft-G) 241 ml/MIN Comment: Estimated GFR(Cockroft-Gault)is used to calculate patient medication dosage Calcium 9.4 8.6 - 10.0 mg/dL 09/12/2017 6:15 AM CDT 09/12/2017 6:48 AM CDT us Symone De Souza [employer]AT[employer] SUPERVISOR LAB BLOOD ORDERABLES Final Result [facility] HISTORICAL RESULTS * (ABNORMAL) CBC with auto differential (09/12/2017 6:15 AM CDT) WBC 7.2 3.5 - 10.5 x10 3/ul 09/12/2017 6:52 AM CDT [facility] HISTORICAL RESULTS RBC 4.89 4.11 - 5.71 x10 6/ul 09/12/2017 6:52 AM CDT [facility] HISTORICAL RESULTS Hemoglobin 15.2 13.0 - 17.0 g/dL 09/12/2017 6:52 AM CDT [facility] [employer] HISTORICAL RESULTS Hct 49.2(H) 38.2 - 48.5 % 09/12/2017 6:52 AM CDT [facility] [id number] HISTORICAL RESULTS MCV 100.6(H) 80.0 - 97.0 fl 09/12/2017 6:52 AM CDT [facility] [employer] HISTORICAL RESULTS MCH 31.1 27.0 - 31.2 pg 09/12/2017 6:52 AM CDT [employer] HISTORICAL RESULTS MCHC 30.9(L) 31.8 - 35.4 g/dl 09/12/2017 6:52 AM CDT [employer] HISTORICAL RESULTS RDW 14.2 11.6 - 14.8 % 09/12/2017 6:52 AM CDT [employer] HISTORICAL RESULTS Plt Count 160 150 - 450 X10 3/ul 09/12/2017 6:52 AM CDT [employer] HISTORICAL RESULTS MPV 11.9(H) 7.4 - 10.4 fl 09/12/2017 6:52 AM CDT [employer] HISTORICAL RESULTS Neut % 50.4 37.0 - 85.0 % 09/12/2017 6:52 AM CDT [employer] HISTORICAL RESULTS Immature Gran % 0.6 0.0 - 3.0 % 09/12/2017 6:52 AM CDT [facility] [employer] HISTORICAL RESULTS Lymph % 32.7 5.0 - 45.0 % 09/12/2017 6:52 AM CDT [employer] HISTORICAL RESULTS [place] % 13.0 3.0 - 15.0 % 09/12/2017 6:52 AM CDT [facility] [employer] HISTORICAL RESULTS Eos % 3.0 0.0 - 7.0 % 09/12/2017 6:52 AM CDT [facility] [employer] HISTORICAL RESULTS Baso % 0.3 0.0 - 2.0 % Absolute Neuts (auto) 3.6 1.7 - 8.7 x10 3/ul Immature Gran # 0.0 0.0 - 0.3 x10 3/ul 09/12/2017 6:52 AM CDT [facility] HISTORICAL RESULTS Absolute Lymphs (auto) 2.4 0.2 - 4.6 x10 3/ul Absolute Monos (auto) 0.9 0.1 - 1.5 x10 3/ul Absolute Eos (auto) 0.2 0.0 - 0.7 x10 3/ul Absolute Basos (auto) 0.0 0.0 - 0.2 x10 3/ul Nucleat RBC Rel Count 0.0 0 - 3 #/100WBC Absolute Nucleated RBC 0.00 x10 3/ul Absolute Neutrophils 3600 200 - 8000 /ul 09/12/2017 6:15 AM CDT 09/12/2017 6:48 AM CDT us Symone De Souza [employer] LAB BLOOD ORDERABLES Final Result [facility] HISTORICAL RESULTS * Phosphorus (09/11/2017 5:51 AM CDT) Phosphorus 4.0 2.5 - 4.5 mg/dL 09/11/2017 5:51 AM CDT 09/11/2017 5:57 AM CDT us Symone De Souza [employer] LAB BLOOD ORDERABLES Final Result [facility] HISTORICAL RESULTS * Magnesium (09/11/2017 5:51 AM CDT) Magnesium 2.0 1.6 - 2.6 mg/dL 09/11/2017 3:23 PM CDT [facility] HISTORICAL RESULTS Comment:Magnesium sulfate th erapy: 3.0-9.1 mg/dL 09/11/2017 5:51 AM CDT 09/11/2017 5:57 AM CDT Symone De Souza [employer] LAB BLOOD ORDERABLES Final Result Performing Organization Address [facility] de Phone Number [facility] HISTORICAL RESULTS * (ABNORMAL) Basic metabolic panel (09/11/2017 5:51 AM CDT) Pathologist [facility] Sodium 139 135 - 145 mmol/L Potassium 4.7 3.3 - 5.1 mmol/L Chloride 93(L) 96 - 108 mmol/L Carbon Dioxide 40(H) 22 - 32 mmol/L Anion Gap 6(L) 7 - 16 Glucose 115(H) 70 - 100 mg/dL BUN 20 6 - 20 mg/dL Creatinine 0.5 0.5 [...] or on dialysis @ Est GFR (Cockcroft-G) 242 ml/MIN 09/11/2017 7:49 AM [facility] Comment: Estimated GFR(Cockroft-Gault)is used to calculate patient medication dosage Calcium 9.0 8.6 - 10.0 mg/dL 09/11/2017 7:49 AM T [facility] HISTORICAL RESULTS 09/11/2017 5:51 AM CDT 09/11/2017 5:57 AM CDT us Symone De Souza [employer] LAB BLOOD ORDERABLES Final Result [facility] HISTORICAL RESULTS * Digoxin level (09/11/2017 5:51 AM CDT) Digoxin 0.6 0.6 - 1.2 ng/mL 09/11/2017 6:46 AM T [facility] H[facility]OR[facility] RESULTS 09/11/2017 5:51 AM CDT 09/11/2017 5:57 AM CDT Symone Vargasnica Ap [facility] LAB BLOOD ORDERABLES Final Result [facility] HISTORICAL RESULTS * CT Stroke Head WO Contrast (09/11/2017 12:00 AM CDT) Anatomical Region Laterality Modality Head N/A Computed Tomogra phy 09/11/2017 Impressions 09/11/2017 2:00 PM CDT ?? 1.No evidence of an acute intracranial abnormality. 2.Evidence of mild chronic microangiopathic gliosis. Result of critical test were discussed with Jorge A in the ICU by Dr. Bailey 1:55 p.m. central time 09/11/2017. THIS IS AN ELECTRONICALLY VERIFIED FINAL REPORT 09/11/2017 1:57 PM - Electronically signed by Seven Bailey M.D. CH: D: ??09/11/2017 1:57 PM T: ??09/11/2017 1:57 PM Report ID: [id number] Reading Location: ??[id number] [EOD] Narrative 09/11/2017 2:00 PM CDT EXAM DESCRIPTION: ??CT Head WO IV Cont Stroke COMPLETED DATE/TIME: ??09/11/2017 1:47 pm REASON FOR STUDY: ??Sudden onset of left arm weakness today. TECHNIQUE: ??Axial images acquired through the brain without intravenous contrast. ??Images stored on PACS. Automated exposure control was used as a dose optimization technique for this examination. COMPARISON: ??09/28/2012. FINDINGS: CEREBRUM: No acute intracranial hemorrhage, cerebral edema, mass, or mass effect seen. WHITE MATTER: Mild periventricular white matter hypoattenuation is noted, while nonspecific, evidence of chronic microangiopathic gliosis. POSTERIOR FOSSA: No posterior fossa mass or edema. ??No evidence of recent infarction. EXTRA-AXIAL SPACES: No extra-axial fluid collection. BRAIN VOLUME: Within normal limits. ??There is no evidence of hydrocephalus. ORBITS: No significant abnormality. CALVARIUM: No acute skull base or calvarial abnormality. PARANASAL SINUSES AND MASTOIDS: Mild mucosal opacity of the bilateral maxillary sinuses, right greater than left. OTHER: No other significant abnormality. Procedure Note Provider, MD Richard - 10/12/2020 EXAM DESCRIPTION: CT Head WO IV Cont Stroke COMPLETED DATE/TIME: 09/11/2017 1:47 pm REASON FOR STUDY: Sudden onset of left arm weakness today. TECHNIQUE: Axial images acquired through the brain without intravenous contrast. Images stored on PACS. Automated exposure control was used as a dose optimization technique for this examination. COMPARISON: 09/28/2012. FINDINGS: CEREBRUM: No acute intracranial hemorrhage, cerebral edema, mass, or mass effect seen. WHITE MATTER: Mild periventricular white matter hypoattenuation is noted, while nonspecific, evidence of chronic microangiopathic gliosis. POSTERIOR FOSSA: No posterior fossa mass or edema. No evidence of recent infarction. EXTRA-AXIAL SPACES: No extra-axial fluid collection. BRAIN VOLUME: Within normal limits. There is no evidence ofhydrocephalus. ORBITS: No significant abnormality. CALVARIUM: No acute skull base or calvarial abnormality. PARANASAL SINUSES AND MASTOIDS: Mild mucosal opacity of the bilateral maxillary sinuses, right greater than left. OTHER: No other significant abnormality. IMPRESSION: 1.No evidence of an acute intracranial abnormality. 2.Evidence of mild chronic microangiopathic gliosis. Result of critical test were discussed with Jorge A in the ICU by Dr. Bailey 1:55 p.m. central time 09/11/2017. THIS IS AN ELECTRONICALLY VERIFIED FINAL REPORT 09/11/2017 1:57 PM - Electronically signed by Seven Bailey M.D. CH: MANISH Report ID: [id number] Reading Location: [id number] [EOD] us Symone De Souza [employer] IMG CT PROCEDURES Fin al Result * MRI Brain WO Contrast (09/11/2017 12:00 AM CDT) Anatomical Region Laterality Modality Head and Neck N/A Magnetic Resonan ce 09/11/2017 Impressions 09/12/2017 12:36 AM CDT ??No acute intracranial abnormality. ??Small vessel disease.. THIS IS AN ELECTRONICALLY VERIFIED FINAL REPORT 09/12/2017 12:33 AM - Electronically signed by Aureliano Dyer M.D. MA: ROSALINDA D: ??09/12/2017 12:33 AM T: ??09/12/2017 12:33 AM Report ID: [id number] Reading Location: ??[id number] [EOD] Narrative 09/12/2017 12:36 AM CDT EXAM DESCRIPTION: ??MRI Brain W/O Contrast COMPLETED DATE/TIME: ??09/11/2017 10:09 pm REASON FOR STUDY: ??LUE proximal weakness and hx of PAF not on AC COMPARISON: CT brain September 11, 2017 TECHNIQUE: ??Multiplanar imaging includes non-contrasted T1, T2, FLAIR, and diffusion with ADC map sequences. Additional sequence(s) sensitive to blood products. Images stored on PACS. FINDINGS: CEREBRUM: No hemorrhage, edema, or mass effect. ?? WHITE MATTER: There are periventricular and subcortical white matter T2 hyperintensities that are nonspecific but most likely represent small vessel disease.. POSTERIOR FOSSA: Brainstem and cerebellum appear unremarkable. DIFFUSION IMAGING: No recent infarction. EXTRAAXIAL SPACES: No hemorrhage. ??No mass. BRAIN VOLUME: Within normal limits for age. PITUITARY: Unremarkable. VASCULATURE: No flow disturbance identified. ORBITS: No masses. Globes normal. PARANASAL SINUSES AND MASTOIDS: Nonspecific fluid seen in the bilateral mastoid air cells, right side greater than left. ??There is mild mucosal thickening seen in the ethmoid and maxillary sinuses. ??Mucous retention cysts are seen in the right maxillary sinus. OTHER: No other significant finding. Procedure Note Provider, MD Richard - 10/12/2020 EXAM DESCRIPTION: MRI Brain W/O Contrast COMPLETED DATE/TIME: 09/11/2017 10:09 pm REASON FOR STUDY: LUE proximal weakness and hx of PAF not on AC COMPARISON: CT brain September 11, 2017 TECHNIQUE: Multiplanar imaging includes non-contrasted T1, T2, FLAIR, and diffusion with ADC map sequences. Additional sequence(s) sensitive toblood products. Images stored on PACS. FINDINGS: CEREBRUM: No hemorrhage, edema, or mass effect. WHITE MATTER: There are periventricular and subcortical white matter T2 hyperintensities that are nonspecific but most likely represent smallvessel disease.. POSTERIOR FOSSA: Brainstem and cerebellum appear unremarkable. DIFFUSION IMAGING: No recent infarction. EXTRAAXIAL SPACES: No hemorrhage. No mass. BRAIN VOLUME: Within normal limits for age. PITUITARY: Unremarkable. VASCULATURE: No flow disturbance identified. ORBITS: No masses. Globes normal. PARANASAL SINUSES AND MASTOIDS: Nonspecific fluid seen in the bilateral mastoid air cells, right side greater than left. There is mild mucosal thickening seen in the ethmoid and maxillary sinuses. Mucous retentioncysts are seen in the right maxillary sinus. OTHER: No other significant finding. IMPRESSION: No acute intracranial abnormality. Small vessel disease.. THIS IS AN ELECTRONICALLY VERIFIED FINAL REPORT 09/12/2017 12:33 AM - Electronically signed by Aureliano Dyer M.D. MA: ROSALINDA Report ID: [id number] Reading Location: [id number] [EOD] Bhavesh Duffy IMG MRI PROCEDURES Final Result * XR Chest 1 View (09/10/2017 6:02 AM CDT) Anatomical Region Laterality Modality Body, Chest N/A Radiographic Wendy ging 09/10/2017 6:02 AM CDT Impressions 09/10/2017 9:29 PM CDT ?? 1.Mild vascular congestion, improved in the interval. 2.Again seen are bibasilar opacities which may reflect small effusions with adjacent atelectasis and/or infiltrate. THIS IS AN ELECTRONICALLY VERIFIED FINAL REPORT 09/10/2017 9:26 PM - Electronically signed by José Antonio Taylor M.D. MJ: ARAVIND D: ??09/10/2017 9:26 PM T: ??09/10/2017 9:26 PM Report ID: [id number] Reading Location: ??[id number] [EOD] Narrative 09/10/2017 9:29 PM CDT EXAM DESCRIPTION: ??Chest 1 View Portable COMPLETED DATE/TIME: ??09/10/2017 6:26 pm REASON FOR STUDY: ??Shortness of breath since 09/08/2017. TECHNIQUE: ??Frontal radiographic view of the chest acquired. COMPARISON: ??09/08/2017 and 09/05/2017 FINDINGS: LUNGS AND PLEURA: Low lung volume. ??Mild vascular congestion, improved in the interval. ??Vague bibasilar opacity is again seen HEART/MEDIASTINUM: Stable cardiomegaly. HARDWARE/LINES/TUBES: None. BONES: No acute findings. OTHER: No other significant finding. Procedure Note Provider, Richard, - 10/12/2020 EXAM DESCRIPTION: Chest 1 View Portable COMPLETED DATE/TIME: 09/10/2017 6:26 pm REASON FOR STUDY: Shortness of breath since 09/08/2017. TECHNIQUE: Frontal radiographic view of the chest acquired. COMPARISON: 09/08/2017 and 09/05/2017 FINDINGS: LUNGS AND PLEURA: Low lung volume. Mild vascular congestion, improved inthe interval. Vague bibasilar opacity is again seen HEART/MEDIASTINUM: Stable cardiomegaly. HARDWARE/LINES/TUBES: None. BONES: No acute findings. OTHER: No other significant finding. IMPRESSION: 1.Mild vascular congestion, improved in the interval. 2.Again seen are bibasilar opacities which may reflect small effusionswith adjacent atelectasis and/or infiltrate. THIS IS AN ELECTRONICALLY VERIFIED FINAL REPORT 09/10/2017 9:26 PM - Electronically signed by José Antonio Taylor M.D. MJ: ARAVIND Report ID: [id number] Reading Location: [place] [id number] [EOD] us Hoda Cruz [employer] IMG XR PROCEDURES Final Result * (ABNORMAL) CBC with auto differential (09/10/2017 4:37 AM CDT) WBC 8.4 3.5 - 10.5 x10 3/ul 09/10/2017 4:51 AM CDT [facility] HISTORICAL RESULTS RBC 5.02 4.11 - 5.71 x10 6/ul 09/10/2017 4:51 AM CDT [facility] Hemoglobin 15.4 13.0 - 17.0 g/dL 09/10/2017 4:51 AM CDT [facility] H[facility] RESULTS Hct 49.6(H) 38.2 - 48.5 % 09/10/2017 4:51 AM CDT [facility] H[facility] RESULTS MCV 98.8(H) 80.0 - 97.0 fl 09/10/2017 4:51 AM CDT [facility] RES[facility] MCH 30.7 27.0 - 31.2 pg 09/10/2017 4:51 AM CDT [facility] RES[facility] MCHC 31.0(L) 31.8 - 35.4 g/dl 09/10/2017 4:51 AM CDT [facility] H[facility] RESULTS RDW 14.2 11.6 - 14.8 % 09/10/2017 4:51 AM CDT [facility] HISTORICAL RESULTS Plt Count 145(L) 150 - 450 X10 3/ul 09/10/2017 4:51 AM CDT [facility] [employer] [facility] HISTORICAL RESULTS MPV 11.6(H) 7.4 - 10.4 fl 09/10/2017 4:51 AM CDT [facility] HISTORICAL RESULTS Neut % 53.5 37.0 - 85.0 % 09/10/2017 4:51 AM CDT [facility] HISTORICAL RESULTS Immature Gran % 0.5 0.0 - 3.0 % 09/10/2017 4:51 AM CDT [facility] H[facility] RESULTS Lymph % 30.7 5.0 - 45.0 % 09/10/2017 4:51 AM CDT [facility] HISTORICAL RESULTS [place] % 12.2 3.0 - 15.0 % 09/10/2017 4:51 AM CDT [facility] HISTORICAL RESULTS Eos % 2.9 0.0 - 7.0 % 09/10/2017 4:51 AM CDT [facility] HISTORICAL RESULTS Baso % 0.2 0.0 - 2.0 % 09/10/2017 4:51 AM CDT [facility] H[facility] RESULTS Absolute Neuts (auto) 4.5 1.7 - 8.7 x10 3/ul 09/10/2017 4:51 AM CDT [facility] Immature Gran # 0.0 0.0 - 0.3 x10 3/ul 09/10/2017 4:51 AM CDT [facility] HISTORICAL RESULTS Absolute Lymphs (auto) 2.6 0.2 - 4.6 x10 3/ul 09/10/2017 4:51 AM CDT [facility] HISTORICAL RESULTS Absolute Monos (auto) 1.0 0.1 - 1.5 x10 3/ul 09/10/2017 4:51 AM CDT [facility] HISTORICAL RESULTS Absolute Eos (auto) 0.2 0.0 - 0.7 x10 3/ul 09/10/2017 4:51 AM CDT [facility] HISTORICAL RESULTS Absolute Basos (auto) 0.0 0.0 - 0.2 x10 3/ul Nucleat RBC Rel Count 0.0 0 - 3 #/100WBC Absolute Nucleated RBC 0.00 x10 3/ul Absolute Neutrophils 4500 200 - 8000 /ul 09/10/2017 4:37 AM CDT 09/10/2017 4:47 AM CDT us Hoda Cruz [employer] LAB BLOOD ORDERABLES Final Res ult [facility] HISTORICAL RESULTS * (ABNORMAL) Basic metabolic panel (09/10/2017 4:37 AM CDT) Sodium 141 135 - 145 mmol/L 09/10/2017 5:19 AM CDT [facility] HISTORICAL RESULTS Potassium 4.2 3.3 - 5.1 mmol/L Chloride 95(L) 96 - 108 mmol/L Carbon Dioxide 41(H) 22 - 32 mmol/L Anion Gap 5(L) 7 - 16 Glucose 114(H) 70 - 100 mg/dL BUN 20 6 - 20 mg/dL Creatinine 0.5 0.5 [...] or on dialysis @ Est GFR (Cockcroft-G) 241 ml/MIN Comment: Estimated GFR(Cockroft-Gault)is used to calculate patient medication dosage Calcium 8.9 8.6 - 10.0 mg/dL 09/10/2017 4:37 AM CDT 09/10/2017 4:47 AM CDT us Hoda Cruz [employer] LAB BLOOD ORDERABLES Final Res ult [facility] HISTORICAL RESULTS * (ABNORMAL) CBC with auto differential (09/09/2017 5:07 AM CDT) WBC 9.5 3.5 - 10.5 x10 3/ul 09/09/2017 5:25 AM CDT [facility] [employer] HISTORICAL RESULTS RBC 4.86 4.11 - 5.71 x10 6/ul 09/09/2017 5:25 AM CDT [facility] [employer] HISTORICAL RESULTS Hemoglobin 15.1 13.0 - 17.0 g/dL 09/09/2017 5:25 AM CDT [facility] [employer] HISTORICAL RESULTS Hct 49.3(H) 38.2 - 48.5 % 09/09/2017 5:25 AM CDT [facility] [employer] HISTORICAL RESULTS MCV 101.4(H) 80.0 - 97.0 fl 09/09/2017 5:25 AM CDT [facility] [employer] HISTORICAL RESULTS MCH 31.1 27.0 - 31.2 pg 09/09/2017 5:25 AM CDT [facility] [employer] HISTORICAL RESULTS MCHC 30.6(L) 31.8 - 35.4 g/dl 09/09/2017 5:25 AM CDT [facility] [employer] HISTORICAL RESULTS RDW 14.5 11.6 - 14.8 % 09/09/2017 5:25 AM CDT [facility] [employer] HISTORICAL RESULTS Plt Count 131(L) 150 - 450 X10 3/ul 09/09/2017 5:25 AM CDT [facility] [employer] HISTORICAL RESULTS MPV 11.6(H) 7.4 - 10.4 fl 09/09/2017 5:25 AM CDT [facility] [employer] HISTORICAL RESULTS Neut % 61.6 37.0 - 85.0 % 09/09/2017 5:25 AM CDT [facility] [employer] HISTORICAL RESULTS Immature Gran % 0.4 0.0 - 3.0 % 09/09/2017 5:25 AM CDT [facility] [employer] HISTORICAL RESULTS Lymph % 23.0 5.0 - 45.0 % [place] % 12.6 3.0 - 15.0 % Eos % 2.1 0.0 - 7.0 % Baso % 0.3 0.0 - 2.0 % Absolute Neuts (auto) 5.8 1.7 - 8.7 x10 3/ul Immature Gran # 0.0 0.0 - 0.3 x10 3/ul Absolute Lymphs (auto) 2.2 0.2 - 4.6 x10 3/ul Absolute Monos (auto) 1.2 0.1 - 1.5 x10 3/ul Absolute Eos (auto) 0.2 0.0 - 0.7 x10 3/ul Absolute Basos (auto) 0.0 0.0 - 0.2 x10 3/ul Nucleat RBC Rel Count 0.0 0 - 3 #/100WBC Absolute Nucleated RBC 0.00 x10 3/ul Absolute Neutrophils 5800 200 - 8000 /ul 09/09/2017 5:07 AM CDT 09/09/2017 5:21 AM CDT us Hoda Cruz [employer] LAB BLOOD ORDERABLES Final Res ult [facility] HISTORICAL RESULTS * (ABNORMAL) Basic metabolic panel (09/09/2017 5:07 AM [facility]) [facility] Sodium 142 135 - 145 mmol/L Potassium 3.8 3.3 - 5.1 mmol/L Chloride 93(L) 96 - 108 mmol/L Carbon Dioxide 41(H) 22 - 32 mmol/L Anion Gap 8 7 - 16 Glucose 114(H) 70 - 100 mg/dL BUN 18 6 - 20 mg/dL Creatinine 0.6 0.5 [...] or on dialysis @ Est GFR (Cockcroft-G) 199 ml/MIN 09/09/2017 6:07 AM CDT [facility] HISTORICAL RESULTS Comment: Estimated GFR(Cockroft-Gault)is used to calculate patient medication dosage Calcium 8.7 8.6 - 10.0 mg/dL 09/09/2017 6:07 AM CDT [facility] HISTORICAL RESULTS 09/09/2017 5:07 AM CDT 09/09/2017 5:21 AM CDT us Hoda Cruz [employer]PER[employer] LAB BLOOD ORDERABLES Final Res ult [facility] HISTORICAL RESULTS * XR Shoulder Left 2 or More Views (09/08/2017 12:21 PM CDT) Anatomical Region Laterality Modality Upper Extremities, Shoulder Left Radi ographic Imaging 09/08/2017 12:2 1 PM CDT Impressions 09/08/2017 3:33 PM CDT ??No evidence of acute fracture or dislocation. ??Limited examination. THIS IS AN ELECTRONICALLY VERIFIED FINAL REPORT 09/08/2017 3:30 PM - Electronically signed by Jean-Pierre Owens M.D. AB: D: ??09/08/2017 3:30 PM T: ??09/08/2017 3:30 PM Report ID: [id number] Reading Location: ??[id number] [EOD] Narrative 09/08/2017 3:33 PM CDT EXAM DESCRIPTION: ??Shoulder LT 2Vw Min (STANDARD) COMPLETED DATE/TIME: ??09/08/2017 12:51 pm REASON FOR STUDY: ??Left shoulder pain and inability to lift left arm since September 03, 2017. ??No injury. COMPARISON: ??None available. ??Correlation with chest radiograph from September 03, 2017 and chest radiograph from September 08, 2017. TECHNIQUE: ??AP internal rotation and Y-views of the left shoulder were obtained. FINDINGS: BONES/JOINTS: Examination is suboptimal due to patient positioning on the Y-view. ??There is no evidence of acute fracture or dislocation. ??Alignment appears normal. ??There is no evidence of significant glenohumeral or acromioclavicular osteoarthritis. SOFT TISSUES: The visualized soft tissues are unremarkable. VISUALIZED RIBS AND LUNG: There is no evidence of a left rib fracture. ??There is patchy opacity projecting over the left lung base, better characterized on same day chest radiograph. OTHER: No significant finding. Procedure Note Provider, MD Richard - 10/12/2020 EXAM DESCRIPTION: Shoulder LT 2Vw Min (STANDARD) COMPLETED DATE/TIME: 09/08/2017 12:51 pm REASON FOR STUDY: Left shoulder pain and inability to lift left arm since September 03, 2017. No injury. COMPARISON: None available. Correlation with chest radiograph from 2017 and chest radiograph from September 08, 2017. TECHNIQUE: AP internal rotation and Y-views of the left shoulder were obtained. FINDINGS: BONES/JOINTS: Examination is suboptimal due to patient positioning on the Y-view. There is no evidence of acute fracture or dislocation. Alignment appears normal. There is no evidence of significant glenohumeral or acromioclavicular osteoarthritis. SOFT TISSUES: The visualized soft tissues are unremarkable. VISUALIZED RIBS AND LUNG: There is no evidence of a left rib fracture.There is patchy opacity projecting over the left lung base, better characterizedon same day chest radiograph. OTHER: No significant finding. IMPRESSION: No evidence of acute fracture or dislocation. Limited examination. THIS IS AN ELECTRONICALLY VERIFIED FINAL REPORT 09/08/2017 3:30 PM - Electronically signed by Jean-Pierre Owens M.D. AB: Report ID: [id number] Reading Location: [place] [id number] [EOD] us Hoda Cruz [employer] SUPER[employer] IMG XR PROCEDURES Final Result * (ABNORMAL) BLOOD GAS w/LYTES & LACTATE (09/08/2017 9:31 AM [facility]) Specimen Type ARTERIAL Puncture Site RR Patient Temperature 37.0 C 09/08 9:37 AM [facility] HISTORICAL RESULTS pH 7.316(L) 7.350 - 7.450 pCO2 82.9(HH) 32.0 - 48.0 mmHg Comment: CRITICAL VALUE CALLED and REPEATED. ?? at:0937 09/08/17 by:Kerline Asencio to:HODA CRZU ?? pO2 88.5 80.0 - 110.0 mmHg HCO3 41.1(H) 22.0 - 26.0 mmol/L Total CO2 43.7(H) 20.0 - 30.0 mmol/L Base Excess 10.6(H) -2.0 - 2.0 mmol/L Hemoglobin 16.3 13.8 - 17.2 g/dL O2 Saturation 94.6 90.0 - 95.0 % ABG Carboxyhemoglobin 1.0 <3.0 % 9:37 AM [facility] HISTORICAL RESULTS ABG Methemoglobin 0.7 <2.0 % 018 9:37 AM [facility] HISTORICAL RESULTS ABG O2 Content 21.6 17.6 - 24.3 Vol % Na+ (BLOOD GAS) 144 135 - 145 mmol/L K+ (BLOOD GAS) 3.8 3.3 - 4.9 mmol/L CA++ (ionized) BLOOD GAS 1.21 1.13 - 1.28 mmol/L GLUCOSE (BLOOD GAS) 127 65 - 199 mg/dL Lactate (BLOOD GAS) 0.8 0.5 - 2.0 mEq/L A-a O2 Difference 498.9(H) <=10.0 018 9:37 AM [facility] HISTORICAL RESULTS a/A Ratio 0.2(L) >=0.8 O2 Delivery Device BIPAP 2017 9:37 AM [facility] HISTORICAL RESULTS FiO2 100.0 % Mechanical Rate 20 8 9:37 AM [facility] HISTORICAL RESULTS Mode BiPAP 18/10 BG Specimen Comment [id number] 09/08 9:37 AM [facility] HISTORICAL RESULTS Front End Software Developer ID RMD 09/08/2017 9:31 AM CDT 09/08/2017 9:34 AM CDT us Iraj Newell Jr., MD LAB BLOOD ORDERABLES Final Result [facility] HISTORICAL RESULTS * PROCALCITONIN Pre-antibiotic (09/08/2017 4:59 AM CDT) Procalcitonin 0.08 0.0 - 0.24 ng/mL Comment: Guidelines for use with Community Acquired Pneumonia(CAP)- ONLY: ?? <0.1 ng/mL: Use of antibiotics is STRONGLY discouraged ?? 0.1-0.24 ng/mL: Use of antibiotics is discouraged ?? 0.25-0.5 ng/mL: Use of antibiotics is encouraged ?? >0.5 ng/mL: Use of antibiotics is STRONGLY encouraged ?? Recommend repeating every 2-3 days if initial PCT >0.24 09/08/2017 4:59 AM CDT 09/08/2017 5:11 AM CDT us Iraj Newell Jr., MD LAB BLOOD ORDERABLES Final Result Performing Organization Address [facility]/ZIP Co de Phone Number [facility] HISTORICAL RESULTS * Magnesium (09/08/2017 4:59 AM CDT) Pathologist [facility] Magnesium 1.9 1.6 - 2.6 mg/dL Comment:Magnesium sulfate th erapy: 3.0-9.1 mg/dL 09/08/2017 4:59 AM CDT 09/08/2017 5:11 AM CDT us Iraj Newell Jr., MD LAB BLOOD ORDERABLES Final Result Performing Organization Address [facility] Phone Number [facility] HISTORICAL RESULTS * (ABNORMAL) CBC with auto differential (09/08/2017 4:59 AM CDT) Pathologist [facility] WBC 7.4 3.5 - 10.5 x10 3/ul RBC 5.17 4.11 - 5.71 x10 6/ul Hemoglobin 16.2 13.0 - 17.0 g/dL Hct 53.3(H) 38.2 - 48.5 % MCV 103.1(H) 80.0 - 97.0 fl 09/08/2017 5:13 AM [facility] MCH 31.3(H) 27.0 - 31.2 pg 09/08/2017 5:13 AM [facility] HIST[facility] RESULTS MCHC 30.4(L) 31.8 - 35.4 g/dl 09/08/2017 5:13 AM [facility] HISTORICAL RESULTS RDW 14.6 11.6 - 14.8 % 09/08/2017 5:13 AM [facility] HISTORICAL RESULTS Plt Count 133(L) 150 - 450 X10 3/ul 09/08/2017 5:13 AM [facility] HISTORICAL RESULTS MPV 11.0(H) 7.4 - 10.4 fl 09/08/2017 5:13 AM [facility] HISTORICAL RESULTS Neut % 60.5 37.0 - 85.0 % 09/08/2017 5:13 AM [facility] HISTORICAL RESULTS Immature Gran % 0.3 0.0 - 3.0 % 09/08/2017 5:13 AM [facility] HISTOR[facility] RESULTS Lymph % 21.7 5.0 - 45.0 % 09/08/2017 5:13 AM [facility] HISTORICAL RESULTS [place] % 14.4 3.0 - 15.0 % 09/08/2017 5:13 AM [facility] RESULTS Eos % 2.8 0.0 - 7.0 % 09/08/2017 5:13 AM [facility]ISTOR[facility] RESULTS Baso % 0.3 0.0 - 2.0 % 09/08/2017 5:13 AM [facility] RESULTS Absolute Neuts (auto) 4.5 1.7 - 8.7 x10 3/ul 09/08/2017 5:13 AM [facility] HISTORICAL RESULTS Immature Gran # 0.0 0.0 - 0.3 x10 3/ul 09/08/2017 5:13 AM [facility] HIST[facility] RESULTS Absolute Lymphs (auto) 1.6 0.2 - 4.6 x10 3/ul 09/08/2017 5:13 AM [facility] HISTORICAL RESULTS Absolute Monos (auto) 1.1 0.1 - 1.5 x10 3/ul 09/08/2017 5:13 AM CDT [facility] HISTORICAL RESULTS Absolute Eos (auto) 0.2 0.0 - 0.7 x10 3/ul 09/08/2017 5:13 AM CDT [facility] HISTORICAL RESULTS Absolute Basos (auto) 0.0 0.0 - 0.2 x10 3/ul 09/08/2017 5:13 AM CDT [facility] HISTORICAL RESULTS Nucleat RBC Rel Count 0.0 0 - 3 #/100WBC Absolute Nucleated RBC 0.00 x10 3/ul Absolute Neutrophils 4500 200 - 8000 /ul 09/08/2017 4:59 AM CDT 09/08/2017 5:11 AM CDT us Iraj Newell Jr., MD LAB BLOOD ORDERABLES Final Result [facility] HISTORICAL RESULTS * (ABNORMAL) Basic metabolic panel (09/08/2017 4:59 AM CDT) Sodium 148(H) 135 - 145 mmol/L Potassium 3.8 3.3 - 5.1 mmol/L Chloride 98 96 - 108 mmol/L Carbon Dioxide 41(H) 22 - 32 mmol/L Anion Gap 9 7 - 16 Glucose 102(H) 70 - 100 mg/dL BUN 18 6 - 20 mg/dL Creatinine 0.6 0.5 - 1.3 mg/dL 09/08/2017 5:46 AM T [facility] H[facility] RESULTS Comment: NOTE: Estimated GFR (Cockroft-Gault) [...] or on dialysis @ Est GFR (Cockcroft-G) 201 ml/MIN 09/08/2017 5:46 AM [facility] HISTORICAL RESULTS Comment: Estimated GFR(Cockroft-Gault)is used to calculate patient medication dosage Calcium 9.2 8.6 - 10.0 mg/dL 09/08/2017 5:46 AM T [facility] HISTORICAL RESULTS 09/08/2017 4:59 AM CDT 09/08/2017 5:11 AM CDT us Iraj Newell Jr., MD LAB BLOOD ORDERABLES Final Result [facility]ISTOR[facility] RESULTS * XR Chest 1 View (09/08/2017 12:00 AM CDT) Anatomical Region Laterality Modality Body, Chest N/A Radiographic Wendy ging 09/08/2017 Impressions 09/08/2017 9:26 AM CDT ??Patchy infiltrates bilaterally with small effusion which are slightly worse THIS IS AN ELECTRONICALLY VERIFIED FINAL REPORT 09/08/2017 9:22 AM - Electronically signed by Van Palomares M.D. NC: YOEL D: ??09/08/2017 9:22 AM T: ??09/08/2017 9:22 AM Report ID: [id number] Reading Location: ??[id number] [EOD] Narrative 09/08/2017 9:26 AM CDT EXAM DESCRIPTION: ??Chest 1 View Portable COMPLETED DATE/TIME: ??09/08/2017 9:08 am REASON FOR STUDY: ??Acute shortness of breath and respiratory distress COMPARISON: ?? TECHNIQUE: ??Frontal radiographic view of the chest acquired. FINDINGS: LUNGS AND PLEURA: Patchy infiltrates noted bilaterally which are slightly worse with small effusions HEART/MEDIASTINUM: Heart size is normal. Normal mediastinal and hilar contours. HARDWARE/LINES/TUBES: None. BONES: No acute findings. OTHER: No other significant finding. Procedure Note Provider, MD Richard - 10/12/2020 EXAM DESCRIPTION: Chest 1 View Portable COMPLETED DATE/TIME: 09/08/2017 9:08 am REASON FOR STUDY: Acute shortness of breath and respiratory distress COMPARISON: TECHNIQUE: Frontal radiographic view of the chest acquired. FINDINGS: LUNGS AND PLEURA: Patchy infiltrates noted bilaterally which are slightly worse with small effusions HEART/MEDIASTINUM: Heart size is normal. Normal mediastinal and hilarcontours. HARDWARE/LINES/TUBES: None. BONES: No acute findings. OTHER: No other significant finding. IMPRESSION: Patchy infiltrates bilaterally with small effusion which are slightly worse THIS IS AN ELECTRONICALLY VERIFIED FINAL REPORT 09/08/2017 9:22 AM - Electronically signed by Van Palomares M.D. NC: YOEL Report ID: [id number] Reading Location: [id number] [EOD] us Hoda Cruz [employer] IMG XR PROCEDURES Final Result * Magnesium (09/07/2017 4:26 AM CDT) Pathologist [facility] Magnesium 2.1 1.6 - 2.6 mg/dL 09/07/2017 5:27 AM CDT [facility] HISTORICAL RESULTS Comment:Magnesium sulfate th erapy: 3.0-9.1 mg/dL 09/07/2017 4:26 AM CDT 09/07/2017 4:57 AM CDT us Iraj Newell Jr., MD LAB BLOOD ORDERABLES Final Result [facility] HISTORICAL RESULTS * (ABNORMAL) CBC with auto differential (09/07/2017 4:26 AM CDT) [facility] WBC 8.3 3.5 - 10.5 x10 3/ul 09/07/2017 5:08 AM T [facility] [employer] HISTORICAL RESULTS RBC 5.20 4.11 - 5.71 x10 6/ul 09/07/2017 5:08 AM T [facility] [employer] HISTORICAL RESULTS Hemoglobin 16.2 13.0 - 17.0 g/dL 09/07/2017 5:08 AM T [facility] [employer] HISTORICAL RESULTS Hct 52.2(H) 38.2 - 48.5 % 09/07/2017 5:08 AM T [facility] HISTORICAL RESULTS MCV 100.4(H) 80.0 - 97.0 fl 09/07/2017 5:08 AM T [facility] [employer] HISTORICAL RESULTS MCH 31.2 27.0 - 31.2 pg 09/07/2017 5:08 AM T [facility] HISTORICAL RESULTS MCHC 31.0(L) 31.8 - 35.4 g/dl 09/07/2017 5:08 AM T [facility] [employer] HISTORICAL RESULTS RDW 14.7 11.6 - 14.8 % 09/07/2017 5:08 AM T [facility] HISTORICAL RESULTS Plt Count 137(L) 150 - 450 X10 3/ul MPV 11.8(H) 7.4 - 10.4 fl Neut % 64.3 37.0 - 85.0 % Immature Gran % 0.5 0.0 - 3.0 % Lymph % 20.1 5.0 - 45.0 % [place] % 12.2 3.0 - 15.0 % Eos % 2.5 0.0 - 7.0 % Baso % 0.4 0.0 - 2.0 % Absolute Neuts (auto) 5.4 1.7 - 8.7 x10 3/ul Immature Gran # 0.0 0.0 - 0.3 x10 3/ul Absolute Lymphs (auto) 1.7 0.2 - 4.6 x10 3/ul Absolute Monos (auto) 1.0 0.1 - 1.5 x10 3/ul Absolute Eos (auto) 0.2 0.0 - 0.7 x10 3/ul Absolute Basos (auto) 0.0 0.0 - 0.2 x10 3/ul Nucleat RBC Rel Count 0.0 0 - 3 #/100WBC Absolute Nucleated RBC 0.00 x10 3/ul Absolute Neutrophils 5400 200 - 8000 /ul 09/07/2017 4:26 AM CDT 09/07/2017 4:57 AM CDT us Iraj Newell Jr., MD LAB BLOOD ORDERABLES Final Result [facility] HISTORICAL RESULTS * (ABNORMAL) Basic metabolic panel (09/07/2017 4:26 AM CDT) Sodium 144 135 - 145 mmol/L Potassium 3.4 3.3 - 5.1 mmol/L Chloride 96 96 - 108 mmol/L Carbon Dioxide 38(H) 22 - 32 mmol/L Anion Gap 10 7 - 16 Glucose 148(H) 70 - 100 mg/dL BUN 21(H) 6 [...] or on dialysis @ Est GFR (Cockcroft-G) 173 ml/MIN Comment: Estimated GFR(Cockroft-Gault)is used to calculate patient medication dosage Calcium 8.9 8.6 - 10.0 mg/dL 09/07/2017 4:26 AM CDT 09/07/2017 4:57 AM CDT us Iraj Newell Jr., MD LAB BLOOD ORDERABLES Final Result [facility] HISTORICAL RESULTS * (ABNORMAL) Basic metabolic panel (09/06/2017 6:20 PM CDT) Sodium 143 135 - 145 mmol/L Potassium 3.8 3.3 - 5.1 mmol/L Chloride 96 96 - 108 mmol/L Carbon Dioxide 40(H) 22 - 32 mmol/L Anion Gap 7 7 - 16 Glucose 133(H) 70 - 100 mg/dL BUN 25(H) 6 - 20 mg/dL Creatinine 0.7 0.5 [...] or on dialysis @ Est GFR (Cockcroft-G) 173 ml/MIN Comment: Estimated GFR(Cockroft-Gault)is used to calculate patient medication dosage Calcium 8.4(L) 8.6 - 10.0 mg/dL 09/06/2017 6:46 PM CDT [facility] [employer] HISTORICAL RESULTS 09/06/2017 6:20 PM CDT 09/06/2017 6:23 PM CDT us Iraj Newell Jr., MD LAB BLOOD ORDERABLES Final Result [facility] HISTORICAL RESULTS * (ABNORMAL) CBC with auto differential (09/06/2017 4:25 AM CDT) WBC 8.6 3.5 - 10.5 x10 3/ul 09/06/2017 5:03 AM CDT [facility] [employer] HISTORICAL RESULTS RBC 5.00 4.11 - 5.71 x10 6/ul 09/06/2017 5:03 AM CDT [facility] [employer] HISTORICAL RESULTS Hemoglobin 15.7 13.0 - 17.0 g/dL 09/06/2017 5:03 AM T [facility] HISTORICAL RESULTS Hct 50.2(H) 38.2 - 48.5 % 09/06/2017 5:03 AM T [facility] HISTORICAL RESULTS MCV 100.4(H) 80.0 - 97.0 fl 09/06/2017 5:03 AM CDT [facility] [employer] HISTORICAL RESULTS MCH 31.4(H) 27.0 - 31.2 pg 09/06/2017 5:03 AM T [facility] [employer] HISTORICAL RESULTS MCHC 31.3(L) 31.8 - 35.4 g/dl 09/06/2017 5:03 AM CDT [facility] HISTORICAL RESULTS RDW 14.8 11.6 - 14.8 % 09/06/2017 5:03 AM T [facility] [employer] HISTORICAL RESULTS Plt Count 124(L) 150 - 450 X10 3/ul 09/06/2017 5:03 AM T [facility] [employer] HISTORICAL RESULTS MPV 12.0(H) 7.4 - 10.4 fl 09/06/2017 5:03 AM T [facility] [employer] HISTORICAL RESULTS Neut % 68.1 37.0 - 85.0 % 09/06/2017 5:03 AM CDT [facility] [employer] HISTORICAL RESULTS Immature Gran % 0.3 0.0 - 3.0 % Lymph % 17.7 5.0 - 45.0 % [place] % 13.2 3.0 - 15.0 % Eos % 0.6 0.0 - 7.0 % Baso % 0.1 0.0 - 2.0 % Absolute Neuts (auto) 5.9 1.7 - 8.7 x10 3/ul Immature Gran # 0.0 0.0 - 0.3 x10 3/ul Absolute Lymphs (auto) 1.5 0.2 - 4.6 x10 3/ul Absolute Monos (auto) 1.1 0.1 - 1.5 x10 3/ul Absolute Eos (auto) 0.1 0.0 - 0.7 x10 3/ul Absolute Basos (auto) 0.0 0.0 - 0.2 x10 3/ul Nucleat RBC Rel Count 0.0 0 - 3 #/100WBC Absolute Nucleated RBC 0.00 x10 3/ul Absolute Neutrophils 5900 200 - 8000 /ul 09/06/2017 4:25 AM CDT 09/06/2017 4:57 AM CDT us Iraj Newell Jr., MD LAB BLOOD ORDERABLES Final Result [facility] HISTORICAL RESULTS * (ABNORMAL) Basic metabolic panel (09/06/2017 4:25 AM CDT) Sodium 145 135 - 145 mmol/L Potassium 3.7 3.3 - 5.1 mmol/L Chloride 98 96 - 108 mmol/L Carbon Dioxide 40(H) 22 - 32 mmol/L Anion Gap 7 7 - 16 Glucose 96 70 - 100 mg/dL BUN 25(H) 6 - 20 mg/dL Creatinine 0.6 0.5 [...] or on dialysis @ Est GFR (Cockcroft-G) 201 ml/MIN 09/06/2017 5:26 AM CDT [facility] HISTORICAL RESULTS Comment: Estimated GFR(Cockroft-Gault)is used to calculate patient medication dosage Calcium 8.1(L) 8.6 - 10.0 mg/dL 09/06/2017 5:26 AM CDT [facility] HISTORICAL RESULTS 09/06/2017 4:25 AM CDT 09/06/2017 4:57 AM CDT us Iraj Newell Jr., MD LAB BLOOD ORDERABLES Final Result [facility] HISTORICAL RESULTS * (ABNORMAL) BLOOD GAS w/LYTES & LACTATE (09/05/2017 9:07 PM CDT) Specimen Type ARTERIAL 09/05/2017 9:15 PM CDT [facility] HISTORICAL RESULTS Puncture Site RR 09/05/2017 9:15 PM CDT [facility] HISTORICAL RESULTS Patient Temperature 37.0 C 09/05 9:15 PM CDT [facility] HISTORICAL RESULTS pH 7.362 7.350 - 7.450 09/05/2017 9:15 PM CDT [facility] HISTORICAL RESULTS pCO2 74.6(HH) 32.0 - 48.0 mmHg 09/05/2017 9:15 PM CDT [facility] HISTORICAL RESULTS Comment: CRITICAL VALUE CALLED and REPEATED. ?? at:5 09/05/17 by:Aleyda García to:DAIN VALENTINE RN ?? pO2 54.6(L) 80.0 - 110.0 mmHg HCO3 41.3(H) 22.0 - 26.0 mmol/L Total CO2 43.6(H) 20.0 - 30.0 mmol/L Base Excess 11.7(H) -2.0 - 2.0 mmol/L Hemoglobin 17.1 13.8 - 17.2 g/dL O2 Saturation 84.2(LL) 90.0 - 95.0 % Comment: CRITICAL VALUE CALLED and REPEATED. ?? at:[id number]/05/17 by:Aleyda García to:DAIN VERNON RN ?? ABG Carboxyhemoglobin 1.2 <3.0 % 03/2018 9:15 PM [facility] HISTORICAL RESULTS ABG Methemoglobin 0.7 <2.0 % 018 9:15 PM [facility] HISTORICAL RESULTS ABG O2 Content 20.2 17.6 - 24.3 Vol % Na+ (BLOOD GAS) 140 135 - 145 mmol/L K+ (BLOOD GAS) 3.7 3.3 - 4.9 mmol/L CA++ (ionized) BLOOD GAS 1.14 1.13 - 1.28 mmol/L GLUCOSE (BLOOD GAS) 100 65 - 199 mg/dL Lactate (BLOOD GAS) 1.0 0.5 - 2.0 mEq/L A-a O2 Difference 478.6(H) <=10.0 04/11/2 018 9:15 PM CDT [facility] HISTORICAL RESULTS a/A Ratio 0.1(L) >=0.8 09/05/2017 9:15 PM CDT [facility] HISTORICAL RESULTS O2 Delivery Device HFNC 2017 9:15 PM T [facility] HISTORICAL RESULTS Liter Flow 65.0 FiO2 90.0 % BG Specimen Comment ICU 16 09/05 9:15 PM T [facility] HISTORICAL RESULTS Front End Software Developer ID PAH 09/05/2017 9:07 PM CDT 09/05/2017 9:13 PM CDT Narrative [facility] HISTORICAL RESULTS - 09/05/2017 9:15 PM CDT Conditions Unspecified ?? Source Unspecified us Morgan Sutton MD LAB BLOOD ORDERABLES Final Resu lt Performing Organization Address [facility] Co de Phone Number [facility] HISTORICAL RESULTS * Troponin I (09/05/2017 8:38 PM CDT) Pathologist [facility] Troponin I < 0.300 0.000 - 0.300 ng/mL Comment: Reference using AMBIKA Chemiluminescence ? Negative: Repeat in 4-6 hours as indicated. 09/05/2017 8:38 PM CDT 09/05/2017 8:41 PM CDT us Morgan Sutton MD LAB BLOOD ORDERABLES Final Resu lt [facility] HISTORICAL RESULTS * (ABNORMAL) CBC with auto differential (09/05/2017 4:30 AM CDT) Pathologist [facility] WBC 10.2 3.5 - 10.5 x10 3/ul RBC 5.32 4.11 - 5.71 x10 6/ul 09/05/2017 5:09 AM CDT [facility] HISTOR[facility] RESULTS Hemoglobin 16.5 13.0 - 17.0 g/dL 09/05/2017 5:09 AM CDT [facility] HISTOR[facility] RESULTS Hct 52.8(H) 38.2 - 48.5 % 09/05/2017 5:09 AM CDT [facility] H[facility] RESULTS MCV 99.2(H) 80.0 - 97.0 fl 09/05/2017 5:09 AM CDT [facility] HISTORICAL RESULTS MCH 31.0 27.0 - 31.2 pg 09/05/2017 5:09 AM CDT [facility] HISTORICAL RESULTS MCHC 31.3(L) 31.8 - 35.4 g/dl 09/05/2017 5:09 AM CDT [facility] HISTORICAL RESULTS RDW 15.1(H) 11.6 - 14.8 % 09/05/2017 5:09 AM CDT [facility] HISTORICAL RESULTS Plt Count 120(L) 150 - 450 X10 3/ul 09/05/2017 5:09 AM CDT [facility] HISTORICAL RESULTS MPV 11.7(H) 7.4 - 10.4 fl 09/05/2017 5:09 AM CDT [facility] HISTORICAL RESULTS Neut % 58.9 37.0 - 85.0 % 09/05/2017 5:09 AM CDT [facility] HISTORICAL RESULTS Immature Gran % 0.5 0.0 - 3.0 % 09/05/2017 5:09 AM CDT [facility] HISTORICAL RESULTS Lymph % 27.2 5.0 - 45.0 % 09/05/2017 5:09 AM CDT [facility] HISTORICAL RESULTS [place] % 12.0 3.0 - 15.0 % 09/05/2017 5:09 AM CDT [facility] HISTORICAL RESULTS Eos % 1.2 0.0 - 7.0 % 09/05/2017 5:09 AM CDT [facility] HISTORICAL RESULTS Baso % 0.2 0.0 - 2.0 % 09/05/2017 5:09 AM CDT [facility] HISTORICAL RESULTS Absolute Neuts (auto) 6.0 1.7 - 8.7 x10 3/ul 09/05/2017 5:09 AM CDT [facility] HISTORICAL RESULTS Immature Gran # 0.1 0.0 - 0.3 x10 3/ul 09/05/2017 5:09 AM CDT [facility] HISTORICAL RESULTS Absolute Lymphs (auto) 2.8 0.2 - 4.6 x10 3/ul Absolute Monos (auto) 1.2 0.1 - 1.5 x10 3/ul Absolute Eos (auto) 0.1 0.0 - 0.7 x10 3/ul Absolute Basos (auto) 0.0 0.0 - 0.2 x10 3/ul Nucleat RBC Rel Count 0.0 0 - 3 #/100WBC Absolute Nucleated RBC 0.00 x10 3/ul Absolute Neutrophils 6100 200 - 8000 /ul 09/05/2017 4:30 AM CDT 09/05/2017 5:05 AM CDT us Iraj Newell Jr., MD LAB BLOOD ORDERABLES Final Result [facility] HISTORICAL RESULTS * (ABNORMAL) Basic metabolic panel (09/05/2017 4:30 AM CDT) Sodium 146(H) 135 - 145 mmol/L Potassium 4.0 3.3 - 5.1 mmol/L Chloride 97 96 - 108 mmol/L Carbon Dioxide 41(H) 22 - 32 mmol/L Anion Gap 8 7 - 16 Glucose 104(H) 70 - 100 mg/dL BUN 23(H) 6 - 20 mg/dL Creatinine 0.6 0.5 [...] dialysis @ Est GFR (Cockcroft-G) 203 ml/MIN Comment: Estimated GFR(Cockroft-Gault)is used to calculate patient medication dosage Calcium 8.2(L) 8.6 - 10.0 mg/dL 09/05/2017 5:33 AM CDT [facility] HISTORICAL RESULTS 09/05/2017 4:30 AM CDT 09/05/2017 5:05 AM CDT us Iraj Newell Jr., MD LAB BLOOD ORDERABLES Final Result [facility] HISTORICAL RESULTS * XR Chest 1 View (09/05/2017 12:00 AM CDT) Anatomical Region Laterality Modality Body, Chest N/A Radiographic Wendy ging 09/05/2017 Impressions 09/05/2017 9:19 PM CDT ??Basilar opacity without significant change THIS IS AN ELECTRONICALLY VERIFIED FINAL REPORT 09/05/2017 9:16 PM - Electronically signed by Delroy Acosta M.D. GR: APRIL D: ??09/05/2017 9:16 PM T: ??09/05/2017 9:16 PM Report ID: [id number] Reading Location: ??[id number] [EOD] Narrative 09/05/2017 9:19 PM CDT EXAM DESCRIPTION: ??Chest 1 View Portable COMPLETED DATE/TIME: ??09/05/2017 8:49 pm REASON FOR STUDY: ??Shortness of breath now. COMPARISON: ??09/03/2017 TECHNIQUE: ??Frontal radiographic view of the chest acquired. FINDINGS: LUNGS AND PLEURA: There is bibasilar consolidation this is similar to previous. ??This is unchanged from prior HEART/MEDIASTINUM: There is cardiomegaly. ??There is atherosclerosis of the thoracic aorta. HARDWARE/LINES/TUBES: None. BONES: No acute findings. OTHER: No other significant finding. Procedure Note Provider, Richard, - 10/12/2020 EXAM DESCRIPTION: Chest 1 View Portable COMPLETED DATE/TIME: 09/05/2017 8:49 pm REASON FOR STUDY: Shortness of breath now. COMPARISON: 09/03/2017 TECHNIQUE: Frontal radiographic view of the chest acquired. FINDINGS: LUNGS AND PLEURA: There is bibasilar consolidation this is similar to previous. This is unchanged from prior HEART/MEDIASTINUM: There is cardiomegaly. There is atherosclerosis of the thoracic aorta. HARDWARE/LINES/TUBES: None. BONES: No acute findings. OTHER: No other significant finding. IMPRESSION: Basilar opacity without significant change THIS IS AN ELECTRONICALLY VERIFIED FINAL REPORT 09/05/2017 9:16 PM - Electronically signed by Delroy Acosta M.D. GR: APRIL Report ID: [id number] Reading Location: [id number] [EOD] Morgan Sutton MD IMG XR PROCEDURES Final Result * (ABNORMAL) CBC with auto differential (09/04/2017 4:29 AM CDT) WBC 10.9(H) 3.5 - 10.5 x10 3/ul 09/04/2017 4:45 AM CDT [facility] HISTORICAL RESULTS RBC 5.59 4.11 - 5.71 x10 6/ul 09/04/2017 4:45 AM CDT [facility] HISTORICAL RESULTS Hemoglobin 17.3(H) 13.0 - 17.0 g/dL 09/04/2017 4:45 AM CDT [facility] HISTORICAL RESULTS Hct 54.2(H) 38.2 - 48.5 % 09/04/2017 4:45 AM CDT [facility] HISTORICAL RESULTS MCV 97.0 80.0 - 97.0 fl 09/04/2017 4:45 AM CDT [facility] HISTORICAL RESULTS MCH 30.9 27.0 - 31.2 pg 09/04/2017 4:45 AM CDT [facility] HISTORICAL RESULTS MCHC 31.9 31.8 - 35.4 g/dl 09/04/2017 4:45 AM CDT [facility] HISTORICAL RESULTS RDW 15.8(H) 11.6 - 14.8 % 09/04/2017 4:45 AM CDT [facility] HISTORICAL RESULTS Plt Count 124(L) 150 - 450 X10 3/ul 09/04/2017 4:45 AM CDT [facility] HISTORICAL RESULTS MPV 12.0(H) 7.4 - 10.4 fl Neut % 60.9 37.0 - 85.0 % Immature Gran % 0.5 0.0 - 3.0 % Lymph % 26.7 5.0 - 45.0 % [place] % 10.9 3.0 - 15.0 % Eos % 0.8 0.0 - 7.0 % Baso % 0.2 0.0 - 2.0 % Absolute Neuts (auto) 6.6 1.7 - 8.7 x10 3/ul Immature Gran # 0.1 0.0 - 0.3 x10 3/ul Absolute Lymphs (auto) 2.9 0.2 - 4.6 x10 3/ul Absolute Monos (auto) 1.2 0.1 - 1.5 x10 3/ul Absolute Eos (auto) 0.1 0.0 - 0.7 x10 3/ul Absolute Basos (auto) 0.0 0.0 - 0.2 x10 3/ul Nucleat RBC Rel Count 0.0 0 - 3 #/100WBC Absolute Nucleated RBC 0.00 x10 3/ul Absolute Neutrophils 6700 200 - 8000 /ul 09/04/2017 4:29 AM CDT 09/04/2017 4:41 AM CDT us Iraj Newell Jr., MD LAB BLOOD ORDERABLES Final Result [facility] HISTORICAL RESULTS * (ABNORMAL) Basic metabolic panel (09/04/2017 4:29 AM CDT) Sodium 144 135 - 145 mmol/L Potassium 3.6 3.3 - 5.1 mmol/L Chloride 95(L) 96 - 108 mmol/L Carbon Dioxide 39(H) 22 - 32 mmol/L Anion Gap 10 7 - 16 Glucose 115(H) 70 - 100 mg/dL BUN 15 6 - 20 mg/dL Creatinine 0.7 0.5 [...] or on dialysis @ Est GFR (Cockcroft-G) 175 ml/MIN Comment: Estimated GFR(Cockroft-Gault)is used to calculate patient medication dosage Calcium 8.6 8.6 - 10.0 mg/dL 09/04/2017 4:29 AM CDT 09/04/2017 4:41 AM CDT us Iraj Newell Jr., MD LAB BLOOD ORDERABLES Final Result [facility] HISTORICAL RESULTS * (ABNORMAL) Basic metabolic panel (09/03/2017 3:51 PM CDT) Sodium 144 135 - 145 mmol/L Potassium 4.9 3.3 - 5.1 mmol/L Comment:Results reviewed Chloride 98 96 - 108 mmol/L Carbon Dioxide 38(H) 22 - 32 mmol/L Anion Gap 8 7 - 16 Glucose 106(H) 70 - 100 mg/dL BUN 14 6 - 20 mg/dL Creatinine 0.7 0.5 [...] or on dialysis @ Est GFR (Cockcroft-G) 175 ml/MIN Comment: Estimated GFR(Cockroft-Gault)is used to calculate patient medication dosage Calcium 8.7 8.6 - 10.0 mg/dL 09/03/2017 3:51 PM CDT 09/03/2017 4:02 PM CDT us Iraj Newell Jr., MD LAB BLOOD ORDERABLES Final Result [facility] HISTORICAL RESULTS * (ABNORMAL) Blood gas (includes COOX) (09/03/2017 4:59 AM CDT) Specimen Type ARTERIAL Puncture Site RR Patient Temperature 37.0 C 09/03 5:19 AM [facility] HISTORICAL RESULTS pH 7.466(H) 7.350 - 7.450 pCO2 57.0(H) 32.0 - 48.0 mmHg pO2 95.7 80.0 - 110.0 mmHg HCO3 40.6(H) 22.0 - 26.0 mmol/L Total CO2 42.4(H) 20.0 - 30.0 mmol/L Base Excess 13.7(H) -2.0 - 2.0 mmol/L Hemoglobin 16.8 13.8 - 17.2 g/dL O2 Saturation 95.8(H) 90.0 - 95.0 % ABG Carboxyhemoglobin 1.1 <3.0 % 01/2018 5:19 AM [facility] HISTORICAL RESULTS ABG Methemoglobin 0.7 <2.0 % 018 5:19 AM [facility] HISTORICAL RESULTS ABG O2 Content 22.6 17.6 - 24.3 Vol % 09/03/2017 5:19 AM CDT [facility] HISTORICAL RESULTS A-a O2 Difference 392.3(H) <=10.0 018 5:19 AM T [facility] HISTORICAL RESULTS a/A Ratio 0.2(L) >=0.8 O2 Delivery Device [id number] 2017 5:19 AM T [facility] HISTORICAL RESULTS FiO2 80.0 % Tidal Volume 450.0 Vent Mode AC Mechanical Rate 18 8 5:19 AM T [facility] HISTORICAL RESULTS PEEP 10 BG Specimen Comment [id number] 09/03 5:19 AM T [facility] HISTORICAL RESULTS Front End Software Developer ID PAH 09/03/2017 4:59 AM CDT 09/03/2017 5:14 AM CDT Narrative [facility] HISTORICAL RESULTS - 09/03/2017 5:19 AM CDT Conditions Vent ?? Source Arterial us Iraj Newell Jr., MD LAB BLOOD ORDERABLES Final Result [facility] HISTORICAL RESULTS * PROCALCITONIN Post-antibiotic (09/03/2017 4:45 AM CDT) PROCALCITONIN Post-antibiotic 0.07 0.0 - 0.24 ng/mL 09/03/2017 6:07 AM [facility] Comment: Guidelines for use with Community Acquired Pneumonia(CAP)-ONLY: ?? <0.1 ng/mL or decrease by >90% from initial: ?Cessation of antibiotics is STRONGLY encouraged ?? 0.1-0.24 ng/mL or decrease by >80% from initial: ?Cessation of antibiotics is encouraged ?? 0.25-0.5 ng/mL: Cessation of antibiotics is discouraged ?? >0.5 ng/mL: Cessation of antibiotics is STRONGLY discouraged 09/03/2017 4:45 AM CDT 09/03/2017 4:53 AM CDT us Iraj Newell Jr., MD LAB BLOOD ORDERABLES Final Result [facility] * (ABNORMAL) CBC with auto differential (09/03/2017 4:45 AM CDT) WBC 12.3(H) 3.5 - 10.5 x10 3/ul 09/03/2017 5:00 AM CDT [facility] HISTORICAL RESULTS RBC 5.26 4.11 - 5.71 x10 6/ul 09/03/2017 5:00 AM T [facility] HISTORICAL RESULTS Hemoglobin 16.3 13.0 - 17.0 g/dL 09/03/2017 5:00 AM T [facility] HISTORICAL RESULTS Hct 52.1(H) 38.2 - 48.5 % 09/03/2017 5:00 AM T [facility] HISTORICAL RESULTS MCV 99.0(H) 80.0 - 97.0 fl 09/03/2017 5:00 AM T [facility] HISTORICAL RESULTS MCH 31.0 27.0 - 31.2 pg 09/03/2017 5:00 AM T [facility] HISTORICAL RESULTS MCHC 31.3(L) 31.8 - 35.4 g/dl 09/03/2017 5:00 AM T [facility] HISTORICAL RESULTS RDW 15.6(H) 11.6 - 14.8 % 09/03/2017 5:00 AM T [facility] HISTORICAL RESULTS Plt Count 125(L) 150 - 450 X10 3/ul 09/03/2017 5:00 AM [facility] [facility] HISTORICAL RESULTS MPV 11.9(H) 7.4 - 10.4 fl 09/03/2017 5:00 AM [facility] Site Tour HISTORICAL RESULTS Neut % 73.0 37.0 - 85.0 % Immature Gran % 0.3 0.0 - 3.0 % Lymph % 15.5 5.0 - 45.0 % [place] % 10.4 3.0 - 15.0 % Eos % 0.6 0.0 - 7.0 % Baso % 0.2 0.0 - 2.0 % Absolute Neuts (auto) 9.0(H) 1.7 - 8.7 x10 3/ul Immature Gran # 0.0 0.0 - 0.3 x10 3/ul Absolute Lymphs (auto) 1.9 0.2 - 4.6 x10 3/ul Absolute Monos (auto) 1.3 0.1 - 1.5 x10 3/ul Absolute Eos (auto) 0.1 0.0 - 0.7 x10 3/ul Absolute Basos (auto) 0.0 0.0 - 0.2 x10 3/ul Nucleat RBC Rel Count 0.0 0 - 3 #/100WBC Absolute Nucleated RBC 0.00 x10 3/ul Absolute Neutrophils 9000(H) 200 - 8000 /ul 09/03/2017 4:45 AM CDT 09/03/2017 4:53 AM CDT Iraj Newell Jr., MD LAB BLOOD ORDERABLES Final Result Performing Organization Address [facility] de Phone Number [facility] HISTORICAL RESULTS * (ABNORMAL) B-type natriuretic peptide (09/03/2017 4:45 AM CDT) B-Natriuretic Peptide 158(H) 0 - 100 pg/mL Comment: B Natriutetic [...] hours of bolus or infusion of nesiritide. 09/03/2017 4:45 AM CDT 09/03/2017 4:53 AM CDT Iraj Newell Jr., MD LAB BLOOD ORDERABLES Final Result Performing Organization Address [facility] Phone Number [facility] HISTORICAL RESULTS * (ABNORMAL) Basic metabolic panel (09/03/2017 4:45 AM CDT) Sodium 145 135 - 145 mmol/L Potassium 3.3 3.3 - 5.1 mmol/L Chloride 98 96 - 108 mmol/L Carbon Dioxide 40(H) 22 - 32 mmol/L Anion Gap 7 7 - 16 Glucose 106(H) 70 - 100 mg/dL BUN 13 6 - 20 mg/dL Creatinine 0.6 0.5 [...] or on dialysis @ Est GFR (Cockcroft-G) 206 ml/MIN Comment: Estimated GFR(Cockroft-Gault)is used to calculate patient medication dosage Calcium 8.5(L) 8.6 - 10.0 mg/dL 09/03/2017 4:45 AM CDT 09/03/2017 4:53 AM CDT Iraj Newell Jr., MD LAB BLOOD ORDERABLES Final Result Performing Organization Address [facility] de Phone Number [facility] HISTORICAL RESULTS * (ABNORMAL) Hemoglobin A1c (09/03/2017 4:45 AM CDT) Hemoglobin A1c % 5.8(H) 4.0 - 5.6 % 09/03/2017 5:14 AM CDT [facility] HISTORICAL RESULTS Comment: ADA 2016 GUIDELINES: ??Initial Diagnostic Criteria ? HbA1c Result: ?Interpretation: ?<5.7% ? Normal ?5.7-6.4% ?At risk for diabetes mellitus ?>=6.5% ?Consistent with diabetes mellitus ??Diabetes monitoring ? Target value (ADA Recommended) ?? <7% 09/03/2017 4:45 AM CDT 09/03/2017 4:53 AM CDT Iraj Newell Jr., MD LAB BLOOD ORDERABLES Final Result Performing Organization Address [facility] Phone Number [facility] HISTORICAL RESULTS * XR Chest 1 View (09/03/2017 12:00 AM CDT) Anatomical Region Laterality Modality Body, Chest N/A Radiographic Wendy ging 09/03/2017 Impressions 09/03/2017 8:55 PM CDT ?? 1.Increasing bibasilar dense opacities, likely pneumonia. ??Findings could be secondary to pulmonary edema. ??Questionable left-sided pleural effusion. 2.The endotracheal tube is present with the tip at the thoracic inlet. ??This could be advanced approximately 4 cm for more optimal placement. Communication The critical information of the endotracheal tube positioning was related directly by me ??Amber to nurseLucita on 09/03/2017 at 8:50 p.m. central Time. ?? THIS IS AN ELECTRONICALLY VERIFIED FINAL REPORT 09/03/2017 8:52 PM - Electronically signed by Bull Clark M.D. HL: HL D: ??09/03/2017 8:46 PM T: ??09/03/2017 8:52 PM Report ID: [id number] Reading Location: ??[id number] [EOD] Narrative 09/03/2017 8:55 PM CDT EXAM DESCRIPTION: ??Chest 1 View Portable COMPLETED DATE/TIME: ??09/03/2017 6:37 pm REASON FOR STUDY: ??continued respiratory faliure today, came to hospital 09/02/17 for worsening sob and dizziness x 2 weeks, hx of pneumonia COMPARISON: ??Chest x-ray dated 09/02/2017 TECHNIQUE: ??Frontal radiographic view of the chest acquired. FINDINGS: LUNGS AND PLEURA: Increasing consolidations in the bilateral lower lobes, likely pneumonia. ??Questionable left-sided pleural effusion. ??Mild central pulmonary vascular congestion. HEART/MEDIASTINUM: Stable cardiomegaly. HARDWARE/LINES/TUBES: Endotracheal tube is present with the tip at the thoracic inlet. ??This could be advanced approximately 4 cm for more optimal placement. ??Nasogastric tube is present projecting below the diaphragm BONES: No acute findings. OTHER: No other significant finding. Procedure Note Provider, MD Richard - 10/12/2020 EXAM DESCRIPTION: Chest 1 View Portable COMPLETED DATE/TIME: 09/03/2017 6:37 pm REASON FOR STUDY: continued respiratory faliure today, came to hospital 09/02/17 for worsening sob and dizziness x 2 weeks, hx of pneumonia COMPARISON: Chest x-ray dated 09/02/2017 TECHNIQUE: Frontal radiographic view of the chest acquired. FINDINGS: LUNGS AND PLEURA: Increasing consolidations in the bilateral lower lobes, likely pneumonia. Questionable left-sided pleural effusion. Mild central pulmonary vascular congestion. HEART/MEDIASTINUM: Stable cardiomegaly. HARDWARE/LINES/TUBES: Endotracheal tube is present with the tip at the thoracic inlet. This could be advanced approximately 4 cm for moreoptimal placement. Nasogastric tube is present projecting below the diaphragm BONES: No acute findings. OTHER: No other significant finding. IMPRESSION: 1.Increasing bibasilar dense opacities, likely pneumonia. Findings couldbe secondary to pulmonary edema. Questionable left-sided pleural effusion. 2.The endotracheal tube is present with the tip at the thoracic inlet.This could be advanced approximately 4 cm for more optimal placement. Communication The critical information of the endotracheal tube positioning was related directly by me Dr. lCark to nurse, Lucita on 09/03/2017 at8:50 p.m. central Time. THIS IS AN ELECTRONICALLY VERIFIED FINAL REPORT 09/03/2017 8:52 PM - Electronically signed by Bull Clark M.D. HL: HL Report ID: [id number] Reading Location: [place] [address] [EOD] us Francisco Javier Dunlap [facility] XR PROCEDURES Final Result * Legionella pneumophilia antigen, urine (09/02/2017 7:00 PM CDT) URINE LEGIONELLA PNEUMO AG Negative Negative 09/04/2017 2:40 PM CDT [facility] HISTORICAL RESULTS Comment: Sample is negative for [...] one (1) ?? antigen. ?? Performed by [employer], ?? [address] [place] [id number] ?? [email or web address] [email or web address] Andrea MD, Lab. Director ?? 09/02/2017 7:00 PM CDT 09/02/2017 7:35 PM CDT Narrative [facility] HISTORICAL RESULTS - 09/04/2017 2:40 PM CDT Collected By: ?? Urine collection method Indwelling catheter us Iraj Newell Jr., MD LAB MICROBIOLOGY - GENERAL ORDERABLES Final Result [facility] HISTORICAL RESULTS * Strep pneumoniae antigen, urine (09/02/2017 7:00 PM CDT) [facility] Ur Strep pneumoniae Ag NEGATIVE NEGATIVE 09/02/2017 7:57 PM CDT [facility] HISTORICAL RESULTS 09/02/2017 7:00 PM CDT 09/02/2017 7:35 PM CDT Narrative [facility] HISTORICAL RESULTS - 09/02/2017 7:57 PM CDT Collected By ah ?? Urine collection method Indwelling catheter us Iraj Newell Jr., MD LAB MICROBIOLOGY - GENERAL ORDERABLES Final Result Performing Organization Address [facility]/State/ZIP Co de Phone Number [facility] HISTORICAL RESULTS * Influenza virus PCR (09/02/2017 6:50 PM CDT) [facility] Influenza A RNA FLU A NEGATIVE NEGATIVE 09/02/2017 7:25 PM CDT [facility] HISTORICAL RESULTS Influenza B RNA FLU B NEGATIVE NEGATIVE 09/02/2017 7:25 PM CDT [facility] HISTORICAL RESULTS 09/02/2017 6:50 PM CDT 09/02/2017 6:52 PM CDT Narrative [facility] HISTORICAL RESULTS - 09/02/2017 7:25 PM CDT Collected By us Iraj Newell Jr., MD LAB MICROBIOLOGY - GENERAL ORDERABLES Final Result Performing Organization Address [facility]/ZIP Co de Phone Number [facility] HISTORICAL RESULTS * Mycoplasma pneumoniae antibody, IgM (09/02/2017 6:40 PM CDT) [facility] M. pneumoniae IgM NEGATIVE NEGATIVE 09/02/2017 7:42 PM CDT [facility] HISTORICAL RESULTS 09/02/2017 6:40 PM CDT 09/02/2017 6:46 PM CDT us Iraj Newell Jr., MD LAB BLOOD ORDERABLES Final Result [facility] HISTORICAL RESULTS * Troponin I (09/02/2017 6:12 PM CDT) [facility] Troponin I < 0.300 0.000 - 0.300 ng/mL 09/02/2017 6:46 PM CDT [facility] HISTORICAL RESULTS Comment: Reference using AMBIKA Chemiluminescence ? Negative: Repeat in 4-6 hours as indicated. 09/02/2017 6:12 PM CDT 09/02/2017 6:16 PM CDT us Iraj Newell Jr., MD LAB BLOOD ORDERABLES Final Result [facility] HISTORICAL RESULTS * Microbiology Specimen Report (Converted) (09/02/2017 4:22 PM CDT) 09/02/2017 4:22 PM CDT 09/02/2017 4:34 PM CDT Narrative [facility] HISTORICAL RESULTS - 09/02/2017 4:22 PM CDT Microbiology Specimen Report (Converted) SPECIMEN [id number] ?? COLLECTED: 2017-09-02 16:22:00 MK ?? REQ#: [id number] REQUESTING DR: Iraj Newell MD ?? SOURCE: ENDOTRACH ?? SP DESC: ASPIRATE COMMENT: Collected By mk ? ~2 GMS LT. [place] THICK MUCOUS --- PROCEDURE --- ?--- RESULT --- ?? GRAM STAIN LOWER RESPIRATORY ??(Final) ??- ??Performed at [facility] ?* >25 PMNS, <10 EPI/LPF. INDICATES LOWER RESP. TRACT SECRETION ?* PREDOMINATLY MIXED IVY, NON-DIAGNOSTIC PATTERN. CULTURE LOWER RESPIRATORY ??(Final) ??- ??Performed at [facility] ?* MODERATE GROWTH NORMAL UPPER RESPIRATORY IVY - [facility] ? [address] ? [place] [address] ? Jamison Zarate MD Procedure Note 2018 Microbiology Specimen Report (Converted) SPECIMEN [id number] COLLECTED: 2017-09-02 16:22:00 REQ#:[id number] REQUESTING DR: Iraj Newell MD SOURCE: ENDOTRACH SP DESC: ASPIRATE COMMENT: Collected By mk ~2 GMS LT. [place] THICK MUCOUS --- PROCEDURE --- --- RESULT --- GRAM STAIN LOWER RESPIRATORY (Final) - Performed at [facility] * >25 PMNS, <10 EPI/LPF. INDICATES LOWER RESP. TRACTSECRETION * PREDOMINATLY MIXED IVY, NON-DIAGNOSTIC PATTERN. CULTURE LOWER RESPIRATORY (Final) - Performed at [facility] * MODERATE GROWTH NORMAL UPPER RESPIRATORY IVY - [address] [address] Jamison Zarate MD Iraj Newell Jr., MD LAB BLOOD ORDERABLES Final Result [facility] HISTORICAL RESULTS * (ABNORMAL) Blood gas (includes COOX) (09/02/2017 3:47 PM CDT) Specimen Type ARTERIAL 09/02/2017 4:00 PM CDT [facility]OR[facility] RESULTS Puncture Site RR 09/02/2017 4:00 PM CDT [facility] HISTORICAL RESULTS Patient Temperature 37.0 C 09/02 4:00 PM T [facility] HISTORICAL RESULTS pH 7.494(H) 7.350 - 7.450 pCO2 50.4(H) 32.0 - 48.0 mmHg 09/02/2017 4:00 PM CDT [facility] HISTORICAL RESULTS pO2 67.4(L) 80.0 - 110.0 mmHg 09/02/2017 4:00 PM CDT [facility] HISTORICAL RESULTS HCO3 38.4(H) 22.0 - 26.0 mmol/L Total CO2 40.0(H) 20.0 - 30.0 mmol/L Base Excess 12.8(H) -2.0 - 2.0 mmol/L Hemoglobin 16.2 13.8 - 17.2 g/dL O2 Saturation 92.8 90.0 - 95.0 % ABG Carboxyhemoglobin 1.7 <3.0 % 12/2017 4:00 PM [facility] HISTORICAL RESULTS ABG Methemoglobin 0.8 <2.0 % 4:00 PM [facility] HISTORICAL RESULTS ABG O2 Content 21.1 17.6 - 24.3 Vol % A-a O2 Difference 568.6(H) <=10.0 4:00 PM [facility] HISTORICAL RESULTS a/A Ratio 0.1(L) >=0.8 O2 Delivery Device [id number] 2017 4:00 PM [facility] HISTORICAL RESULTS FiO2 100.0 % Tidal Volume 450.0 Vent Mode AC Mechanical Rate 20 8 4:00 PM [facility] HISTORICAL RESULTS Pressure Support 5 09/03/19 18 4:00 PM [facility] HISTORICAL RESULTS BG Specimen Comment [id number] 09/02 4:00 PM [facility] HISTORICAL RESULTS Front End Software Developer ID MAG 09/02/2017 3:47 PM CDT 09/02/2017 3:57 PM T us Iraj Newell Jr., MD LAB BLOOD ORDERABLES Final Result [facility] HISTORICAL RESULTS * MRSA PCR, surveillance (09/02/2017 1:55 PM CDT) MRSA Surveill Initial MRSA NEGATIVE NEGATIVE 09/02/2017 3:04 PM CDT [facility] HISTORICAL RESULTS Comment:MRSA target DNA sequ ences are not detected. 09/02/2017 1:55 PM CDT 09/02/2017 1:55 PM CDT Narrative [facility] HISTORICAL RESULTS - 09/02/2017 3:04 PM CDT Collected By acs Aric Riojas DO LAB MICROBIOLOGY - GENERAL ORDERABLES Final Result [facility] HISTORICAL RESULTS * XR Chest 1 View (09/02/2017 12:53 PM CDT) Anatomical Region Laterality Modality Body, Chest N/A Radiographic Wendy ging 09/02/2017 12:5 3 PM CDT Narrative 09/02/2017 1:43 PM CDT EXAM DESCRIPTION: ??Chest 1 View Portable COMPLETED DATE/TIME: ??09/02/2017 1:29 pm REASON FOR STUDY: ??Endotracheal tube and orogastric tube placement today. COMPARISON: ??Portable chest radiograph obtained earlier today at 12:12 p.m.. TECHNIQUE: ??Frontal radiographic view of the chest acquired. ??2 images submitted for interpretation. FINDINGS: LUNGS AND PLEURA: Left greater than right perihilar/basilar airspace opacities have not significantly changed from earlier today. ??Slightly indistinct left costophrenic angle, cannot exclude small pleural effusion. HEART/MEDIASTINUM: Mild enlargement of the cardiac silhouette, grossly unchanged. HARDWARE/LINES/TUBES: Interval placement of an endotracheal tube, with distal tip at midline, located 2 cm above the ezequiel. ??An orogastric tube courses into the stomach. BONES: No definite acute findings. 1.Interval placement of an endotracheal tube and orogastric tube, both of which appear appropriately positioned. ??No evidence of pneumothorax. 2.Left greater than right perihilar/basilar airspace opacities, not significantly changed from earlier today, which may represent pneumonia, atelectasis, and/or pulmonary edema. ??Continued imaging follow-up to document resolution is recommended. THIS IS AN ELECTRONICALLY VERIFIED FINAL REPORT 09/02/2017 1:40 PM - Electronically signed by Nando Upton M.D., MD: D: ??09/02/2017 1:40 PM T: ??09/02/2017 1:40 PM Report ID: [id number] Reading Location: ??[id number] [EOD] Procedure Note Provider, MD Richard - 10/12/2020 EXAM DESCRIPTION: Chest 1 View Portable COMPLETED DATE/TIME: 09/02/2017 1:29 pm REASON FOR STUDY: Endotracheal tube and orogastric tube placementtoday. COMPARISON: Portable chest radiograph obtained earlier today at 12:12p.m.. TECHNIQUE: Frontal radiographic view of the chest acquired. 2 images submitted for interpretation. FINDINGS: LUNGS AND PLEURA: Left greater than right perihilar/basilar airspaceopacities have not significantly changed from earlier today. Slightly indistinctleft costophrenic angle, cannot exclude small pleural effusion. HEART/MEDIASTINUM: Mild enlargement of the cardiac silhouette, grossly unchanged. HARDWARE/LINES/TUBES: Interval placement of an endotracheal tube, withdistal tip at midline, located 2 cm above the ezequiel. An orogastric tube courses into the stomach. BONES: No definite acute findings. 1.Interval placement of an endotracheal tube and orogastric tube, both of which appear appropriately positioned. No evidence of pneumothorax. 2.Left greater than right perihilar/basilar airspace opacities, not significantly changed from earlier today, which may represent pneumonia, atelectasis, and/or pulmonary edema. Continued imaging follow-up todocument resolution is recommended. THIS IS AN ELECTRONICALLY VERIFIED FINAL REPORT 09/02/2017 1:40 PM - Electronically signed by Nando Upton M.D., MD: Report ID: [id number] Reading Location: [id number] [EOD] Aric Mann Casandra DO IMG XR PROCEDURES Final Res ult * Microbiology Specimen Report (Converted) (09/02/2017 12:36 PM CDT) 09/02/2017 12:3 6 PM CDT 09/02/2017 12:53 PM CDT Narrative [facility] HISTORICAL RESULTS - 09/02/2017 12:36 PM CDT Microbiology Specimen Report (Converted) SPECIMEN [id number] ?? COLLECTED: 2017-09-02 12:36:00 [id number] ?? REQ#: [id number] REQUESTING DR: Aric Riojas DO ?? SOURCE: BLOOD ?? SP DESC: COMMENT: BC Peripheral Draw ? BC Peripheral Draw ?? --- PROCEDURE --- ?--- RESULT --- ?? CULTURE BLOOD ADULT (SET OF 2) ??(Final) ??- ??Performed at [facility] ?* NO GROWTH DAY 5 - [facility] ? [address] [facility] ? [place] [address] ? Jamison Zarate MD Procedure Note 2018 Microbiology Specimen Report (Converted) SPECIMEN [id number] COLLECTED: 2017-09-02 12:36:00 [id number] REQ#:[id number] REQUESTING DR: Aric Riojas DO SOURCE: BLOOD SP DESC: COMMENT: BC Peripheral Draw BC Peripheral Draw --- PROCEDURE --- --- RESULT --- CULTURE BLOOD ADULT (SET OF 2) (Final) - Performed at [facility] * NO GROWTH DAY 5 - [facility] [address] [place] [address] Jamison Zarate MD Aric Riojas DO LAB BLOOD ORDERABLES Final Result [facility] HISTORICAL RESULTS * Microbiology Specimen Report (Converted) (09/02/2017 12:32 PM CDT) 09/02/2017 12:3 2 PM CDT 09/02/2017 12:36 PM CDT Narrative [facility] HISTORICAL RESULTS - 09/02/2017 12:32 PM CDT Microbiology Specimen Report (Converted) SPECIMEN [id number] ?? COLLECTED: 2017-09-02 12:32:00 [id number] ?? REQ#: [id number] REQUESTING DR: Aric Riojas DO ?? SOURCE: BLOOD ?? SP DESC: COMMENT: BC Peripheral Draw ? BC Peripheral Draw ?? --- PROCEDURE --- ?--- RESULT --- ?? CULTURE BLOOD ADULT (SET OF 2) ??(Final) ??- ??Performed at [facility] ?* NO GROWTH DAY 5 - [facility] ? [address] ? [place] [address] ? Jamison Zarate MD Procedure Note 2018 Microbiology Specimen Report (Converted) SPECIMEN [id number] COLLECTED: 2017-09-02 12:32:00 [id number] REQ#:[id number] REQUESTING DR: Aric Riojas DO SOURCE: BLOOD SP DESC: COMMENT: BC Peripheral Draw BC Peripheral Draw --- PROCEDURE --- --- RESULT --- CULTURE BLOOD ADULT (SET OF 2) (Final) - Performed at [facility] * NO GROWTH DAY 5 - [place] [id number] [place] [address] Jamison Zarate MD Aric Riojas DO LAB BLOOD ORDERABLES Final Result [facility] HISTORICAL RESULTS * (ABNORMAL) BLOOD GAS w/LYTES & LACTATE (09/02/2017 12:26 PM CDT) Specimen Type ARTERIAL 09/02/2017 12:34 PM CDT [facility] HISTORICAL RESULTS Puncture Site RR 09/02/2017 12:34 PM CDT [facility] HISTORICAL RESULTS Patient Temperature 37.0 C 09/02 12:34 PM [facility] HISTORICAL RESULTS pH 7.248(LL) 7.350 - 7.450 Comment: CRITICAL VALUE CALLED and REPEATED. ?? at:1234 09/02/17 by:Nando Sherman to:DR. RIOJAS ?? pCO2 91.7(HH) 32.0 - 48.0 mmHg Comment: CRITICAL VALUE CALLED and REPEATED. ?? at:1234 09/02/17 by:Nando Sherman to:DR. RIOJAS ?? pO2 86.7 80.0 - 110.0 mmHg HCO3 38.6(H) 22.0 - 26.0 mmol/L Total CO2 41.5(H) 20.0 - 30.0 mmol/L Base Excess 6.9(H) -2.0 - 2.0 mmol/L Hemoglobin 16.3 13.8 - 17.2 g/dL O2 Saturation 93.0 90.0 - 95.0 % ABG Carboxyhemoglobin 1.5 <3.0 % ABG Methemoglobin 0.5 <2.0 % 018 12:34 PM [facility] HISTORICAL RESULTS ABG O2 Content 21.3 17.6 - 24.3 Vol % Na+ (BLOOD GAS) 146(H) 135 - 145 mmol/L K+ (BLOOD GAS) 4.1 3.3 - 4.9 mmol/L CA++ (ionized) BLOOD GAS 1.24 1.13 - 1.28 mmol/L GLUCOSE (BLOOD GAS) 124 65 - 199 mg/dL Lactate (BLOOD GAS) 0.7 0.5 - 2.0 mEq/L A-a O2 Difference 499.7(H) <=10.0 018 12:34 PM T [facility] HISTORICAL RESULTS a/A Ratio 0.1(L) >=0.8 O2 Delivery Device NR MASK 2017 12:34 PM [facility] HISTORICAL RESULTS FiO2 100.0 % BG Specimen Comment ER 12 09/02 12:34 PM T [facility] HISTORICAL RESULTS Front End Software Developer ID MAG 09/02/2017 12:2 6 PM CDT 09/02/2017 12:29 PM CDT Narrative [facility] HISTORICAL RESULTS - 09/02/2017 12:34 PM CDT Conditions Room Air ?? Source Arterial Aric Riojas DO LAB BLOOD ORDERABLES Final Result [facility] HISTORICAL RESULTS * TSH (09/02/2017 12:20 PM CDT) TSH 2.03 0.27 - 4.20 uIU/mL 09/02/2017 3:04 PM CDT [facility] HISTORICAL RESULTS 09/02/2017 12:2 0 PM CDT 09/02/2017 12:25 PM CDT us Aric Riojas DO LAB BLOOD ORDERABLES Final Result [facility] HISTORICAL RESULTS * (ABNORMAL) Digoxin level (09/02/2017 12:20 PM CDT) Pathologist [facility] Digoxin < 0.4(L) 0.6 - 1.2 ng/mL 09/02/2017 3:04 PM CDT [facility] HISTORICAL RESULTS 09/02/2017 12:2 0 PM CDT 09/02/2017 12:25 PM CDT Aric Riojas DO LAB BLOOD ORDERABLES Final Result Performing Organization Address [facility] de Phone Number [facility] HISTORICAL RESULTS * PROCALCITONIN Pre-antibiotic (09/02/2017 12:20 PM CDT) [facility] Procalcitonin 0.05 0.0 - 0.24 ng/mL 09/02/2017 1:15 PM CDT [facility] HISTORICAL RESULTS Comment: Guidelines for use with Community Acquired Pneumonia(CAP)- ONLY: ?? <0.1 ng/mL: Use of antibiotics is STRONGLY discouraged ?? 0.1-0.24 ng/mL: Use of antibiotics is discouraged ?? 0.25-0.5 ng/mL: Use of antibiotics is encouraged ?? >0.5 ng/mL: Use of antibiotics is STRONGLY encouraged ?? Recommend repeating every 2-3 days if initial PCT >0.24 09/02/2017 12:2 0 PM CDT 09/02/2017 12:25 PM CDT Aric Riojas DO LAB BLOOD ORDERABLES Final Result Performing Organization Address [facility] Co de Phone Number [facility] HISTORICAL RESULTS * (ABNORMAL) CBC with auto differential (09/02/2017 12:20 PM CDT) Pathologist [facility] WBC 10.7(H) 3.5 - 10.5 x10 3/ul 09/02/2017 12:29 PM CDT [facility] HISTORICAL RESULTS RBC 5.19 4.11 - 5.71 x10 6/ul 09/02/2017 12:29 PM CDT [facility] HISTORICAL RESULTS Hemoglobin 16.4 13.0 - 17.0 g/dL 09/02/2017 12:29 PM CDT [facility] HISTORICAL RESULTS Hct 53.0(H) 38.2 - 48.5 % MCV 102.1(H) 80.0 - 97.0 fl MCH 31.6(H) 27.0 - 31.2 pg MCHC 30.9(L) 31.8 - 35.4 g/dl RDW 15.3(H) 11.6 - 14.8 % Plt Count 137(L) 150 - 450 X10 3/ul MPV 11.7(H) 7.4 - 10.4 fl Neut % 70.3 37.0 - 85.0 % Immature Gran % 1.5 0.0 - 3.0 % Lymph % 18.8 5.0 - 45.0 % [place] % 8.8 3.0 - 15.0 % Eos % 0.2 0.0 - 7.0 % Baso % 0.4 0.0 - 2.0 % Absolute Neuts (auto) 7.6 1.7 - 8.7 x10 3/ul Immature Gran # 0.2 0.0 - 0.3 x10 3/ul Absolute Lymphs (auto) 2.0 0.2 - 4.6 x10 3/ul 09/02/2017 12:29 PM CDT [facility] HISTORICAL RESULTS Absolute Monos (auto) 0.9 0.1 - 1.5 x10 3/ul 09/02/2017 12:29 PM CDT [facility] HISTORICAL RESULTS Absolute Eos (auto) 0.0 0.0 - 0.7 x10 3/ul 09/02/2017 12:29 PM CDT [facility] HISTORICAL RESULTS Absolute Basos (auto) 0.0 0.0 - 0.2 x10 3/ul Nucleat RBC Rel Count 0.0 0 - 3 #/100WBC Absolute Nucleated RBC 0.00 x10 3/ul Absolute Neutrophils 7800 200 - 8000 /ul 09/02/2017 12:2 0 PM CDT 09/02/2017 12:25 PM CDT Aric Darnell Sigifredosharlene DO LAB BLOOD ORDERABLES Final Result [facility] HISTORICAL RESULTS * TNI with LIPID PANEL (09/02/2017 12:20 PM CDT) Troponin I < 0.300 0.000 - 0.300 ng/mL Comment: Reference using AMBIKA Chemiluminescence ? Negative: Repeat in 4-6 hours as indicated. Triglycerides 69 0 - 199 mg/dL Comment:12 hr pc highly graeme mmended for Triglyceride Cholesterol 157 0 - 199 mg/dL Comment: Borderline: ??200-239 High Risk: ?? >239 HDL Cholesterol 37 mg/dL 8 12:52 PM T [facility] HISTORICAL RESULTS Comment: Reference Ranges: ? Males: >=40 mg/dL ? Females: >=50 mg/dL LDL Cholesterol, Calc 106 0 - 130 mg/dL Comment:High Risk > 159 mg/d L Cholesterol/HDL Ratio 4.2 Comment: Cholesterol / HDL Ratio 3.5:1 or less is desirable. Cholesterol / HDL Ratio greater than 5:1 is considered higher risk for developing heart disease. 09/02/2017 12:2 0 PM CDT 09/02/2017 12:25 PM CDT Aric Riojas DO LAB BLOOD ORDERABLES Final Result [facility] HISTORICAL RESULTS * (ABNORMAL) Comprehensive metabolic panel (09/02/2017 12:20 PM CDT) Sodium 144 135 - 145 mmol/L Potassium 4.4 3.3 - 5.1 mmol/L Chloride 100 96 - 108 mmol/L Carbon Dioxide 40(H) 22 - 32 mmol/L Anion Gap 4(L) 7 - 16 Glucose 119(H) 70 - 100 mg/dL BUN 15 6 - 20 mg/dL Creatinine 0.6 0.5 [...] or on dialysis @ Est GFR (Cockcroft-G) 189 ml/MIN Comment: Estimated GFR(Cockroft-Gault)is used to calculate patient medication dosage Calcium 8.2(L) 8.6 - 10.0 mg/dL 09/02/2017 12:52 PM [facility] Total Protein 6.9 6.4 - 8.3 g/dL Albumin 3.8 3.5 - 5.2 g/dL Globulin 3.1 2.3 - 3.5 gm/dL Albumin/Globulin Ratio 1.2 1.1 - 1.8 Total Bilirubin 0.6 0.0 - 1.2 mg/dL 09/02/2017 12:52 PM CDT [facility] HISTORICAL RESULTS AST 22 0 - 40 U/L 09/02/2017 12:52 PM CDT [facility] HISTORICAL RESULTS ALT 22 0 - 41 U/L 09/02/2017 12:52 PM CDT [facility] HISTORICAL RESULTS Alkaline Phosphatase 81 40 - 129 U/L 09/02/2017 12:52 PM CDT [facility] HISTORICAL RESULTS 09/02/2017 12:2 0 PM CDT 09/02/2017 12:25 PM CDT Aric Darnell Casandra DO LAB BLOOD ORDERABLES Final Result [facility] HISTORICAL RESULTS * (ABNORMAL) B-type natriuretic peptide (09/02/2017 12:20 PM CDT) B-Natriuretic Peptide 135(H) 0 - 100 pg/mL 09/02/2017 12:57 PM CDT [facility] HISTORICAL RESULTS Comment: B Natriutetic Peptide METHOD: [...] hours of bolus or infusion of nesiritide. 09/02/2017 12:2 0 PM CDT 09/02/2017 12:25 PM CDT Aric Riojas DO LAB BLOOD ORDERABLES Final Result [facility] HISTORICAL RESULTS * XR Chest 1 View (09/02/2017 12:00 AM CDT) Anatomical Region Laterality Modality Body, Chest N/A Radiographic Wendy ging 09/02/2017 Impressions 09/02/2017 12:31 PM CDT ?? 1.Bilateral perihilar/basilar airspace opacities, which may represent pneumonia, atelectasis, and/or pulmonary edema. ??Recommend imaging follow-up to document resolution. 2.Mild cardiomegaly, grossly unchanged. THIS IS AN ELECTRONICALLY VERIFIED FINAL REPORT 09/02/2017 12:28 PM - Electronically signed by Nando Upton M.D. MD: D: ??09/02/2017 12:28 PM T: ??09/02/2017 12:28 PM Report ID: [id number] Reading Location: ??[id number] [EOD] Narrative 09/02/2017 12:31 PM CDT EXAM DESCRIPTION: ??Chest 1 View Portable COMPLETED DATE/TIME: ??09/02/2017 12:20 pm REASON FOR STUDY: ??Worsening shortness of breath, dizziness for 2 weeks. ?? History of pneumonia. COMPARISON: ??05/26/2017 TECHNIQUE: ??Frontal radiographic view of the chest acquired. FINDINGS: LUNGS AND PLEURA: Patient's overlying chin obscures the medial lung apices. ?? Bilateral airspace opacities favoring the perihilar/basilar regions. ??No pneumothorax. ??No large volume pleural effusion. HEART/MEDIASTINUM: Mild enlargement of the cardiac silhouette, grossly unchanged. HARDWARE/LINES/TUBES: None. BONES: No definite acute finding. Procedure Note Provider, MD Richard - 10/12/2020 EXAM DESCRIPTION: Chest 1 View Portable COMPLETED DATE/TIME: 09/02/2017 12:20 pm REASON FOR STUDY: Worsening shortness of breath, dizziness for 2 weeks. History of pneumonia. COMPARISON: 05/26/2017 TECHNIQUE: Frontal radiographic view of the chest acquired. FINDINGS: LUNGS AND PLEURA: Patient's overlying chin obscures the medial lungapices. Bilateral airspace opacities favoring the perihilar/basilar regions. No pneumothorax. No large volume pleural effusion. HEART/MEDIASTINUM: Mild enlargement of the cardiac silhouette, grossly unchanged. HARDWARE/LINES/TUBES: None. BONES: No definite acute finding. IMPRESSION: 1.Bilateral perihilar/basilar airspace opacities, which may represent pneumonia, atelectasis, and/or pulmonary edema. Recommend imagingfollow-up to document resolution. 2.Mild cardiomegaly, grossly unchanged. THIS IS AN ELECTRONICALLY VERIFIED FINAL REPORT 09/02/2017 12:28 PM - Electronically signed by Nando Upton M.D. MD: Report ID: [id number] Reading Location: [place] [id number] [EOD] Aric Riojas DO IMG XR PROCEDURES Final Res ult documented in this encounter Visit Diagnoses Diagnosis Acute and chronic respiratory failure with hypoxia (CMS/HCC) (HCC) Acute on chronic diastolic congestive heart failure (CMS/HCC) (HCC) Encephalopathy Unspecified encephalopathy Pneumonia Pneumonia, organism unspecified Hypertensive heart disease with heart failure (CMS/HCC) (HCC) Unspecified hypertensive heart disease with heart failure Type 2 diabetes mellitus with diabetic peripheral angiopathy without gangrene (HCC) Paroxysmal atrial fibrillation (CMS/HCC) (HCC) Atrial fibrillation Body mass index (BMI) of 45.0-49.9 in adult (HCC) Morbid (severe) obesity with alveolar hypoventilation (HCC) Hyperlipidemia Other and unspecified hyperlipidemia Obstructive sleep apnea Obstructive sleep apnea (adult) (pediatric) Osteoarthritis Osteoarthrosis, unspecified whether generalized or localized, unspecified site Personal history of nicotine dependence Pain in left shoulder Acute and chronic respiratory failure with hypercapnia (CMS/HCC) (HCC) documented in this encounter Care Teams Manager Switch Relationship Specialty Start Date End Date No, Physician PCP - General 1960 05/17/18 documented as of this encounter
--- OUTSIDE RECORDS SUMMARY | 2024-05-14 16:53 | XMS_ITS | Encounter Summary ---
Author Organization [facility] Healthcare Address [address] [place] [address] Care Team Providers Care Research/Program Director Name Role Phone No, Physician Primary Care Provider Encounter Details Date Type Department Care Team (Latest Contact Info) Description 06/22/2016 3:18 PM PAYROLL CLERK Hospital Encounter [facility] Michelle Goodman MD [address] [facility] [address] [address] Shortness of breath Social History Tobacco Use Types Packs/Day Years [...] Procedure Name Priority Date/Time Associated Diagnosis Comments CARDIOPULMONARY DIAGNOSTICS REPORT 06/27/2016 12:00 AM PAYROLL CLERK documented in this encounter Results * CARDIOPULMONARY DIAGNOSTICS REPORT (06/27/2016 12:00 AM PAYROLL CLERK) Narrative 06/27/2016 12:00 AM PAYROLL CLERK Ordered by an unspecified provider. us Historical Provider NURSING COMMUNICATION Fin al Result documented in this encounter Visit Diagnoses Diagnosis Shortness of breath documented in this encounter Care Teams Research/Program Director Relationship Specialty Start Date End Date No, Physician PCP - General 1960 05/17/18 documented as of this encounter
--- OUTSIDE RECORDS SUMMARY | 2024-05-14 16:54 | XMS_ITS | Encounter Summary ---
Author Organization [facility] Healthcare Address [address] [place] [id number] Care Team Providers Care Marketing Sales Representative Name Role Phone No, Physician Primary Care Provider Encounter Details Date Type Department Care Team (Late st Contact Info) Description 12/30/2013 11:29 AM CDT - 12/30/2014 11:29 AM CDT Hospital Encounter [facility] OP Rogers Stephenson MD [address] [facility] [address] [address] Social History Tobacco Use Types Packs/Day Years [...] - Inhaled Oxygen Concentration - - Weight 144.2 kg (318 lb) 12/30/2013 12:17 PM CDT Height 182.9 cm (6') 12/30/2013 12:17 PM CDT Body Mass Index 43.13 12/30/2013 12:17 PM CDT documented in this encounter Plan of Treatment Not on file documented as of this encounter Visit Diagnoses Not on filedocumented in this encounter Care Teams Marketing Sales Representative Relationship Specialty Start Date End Date No, Physician PCP - General 1960 05/17/18 documented as of this encounter
--- OUTSIDE RECORDS SUMMARY | 2024-05-14 16:54 | XMS_ITS | Encounter Summary ---
Author Organization [facility] Healthcare Address [address] [place] [id number] Care Team Providers Care Game Manager Name Role Phone No, Physician Primary Care Provider [phone] Encounter Details Date Type Department Care Team (Latest Contact Info) Description 11/30/2015 11:30 PM CDT - 12/07/2015 6:30 PM CDT Hospital Encounter [facility] Ginger De La Cruz MD [address] [place] [address] Sepsis (CMS/HCC); Acute respiratory failure with hypoxia (CMS/HCC); Pneumonia; Chronic diastolic heart failure (CMS/HCC); Other secondary pulmonary hypertension (CMS/HCC); Body mass index (BMI) of 45.0-49.9 in adult (CMS/HCC); Paroxysmal atrial fibrillation (CMS/HCC); Morbid (severe) obesity due to excess calories (HCC); Hyperlipidemia; Essential (primary) hypertension; Old myocardial infarction; Type 2 diabetes mellitus without complications (CMS/HCC); care home current use of aspirin; Obstructive sleep apnea Social History Tobacco Use Types Packs/Day Years Used Date Smoking Tobacco: Never Assessed Sex and Gender Information Value Date Recorded Sex Assigned at Not on file Legal Sex Male 8:36 AM CDT Gender Identity Not on file Sexual Orientation Not on file documented as of this encounter Last Filed Vital Signs Vital Sign Reading Time Taken Comments Blood Pressure 152/89 12/02/2015 12:35 PM CDT Pulse 61 12/02/2015 12:35 PM CDT Temperature 37.2 ??C (98.9 ??F) 12/02/2015 12:35 PM C DT Respiratory Rate - - Oxygen Saturation 96% 12/02/2015 12:35 PM CDT Inhaled Oxygen Concentration - - Weight 150.1 kg (331 lb) 12/02/2015 12:35 PM CDT Height 182.9 cm (6') 12/02/2015 12:35 PM CDT Body Mass Index 44.89 12/02/2015 12:35 PM CDT documented in this encounter Plan of Treatment Not on file documented as of this encounter Procedures Procedure Name Priority Date/Time Associated Diagnosis Comments OXYGEN SATURATION, ARTERIAL Routine 12/07/2015 11:50 AM CDT OXYGEN SATURATION, ARTERIAL Routine 12/07/2015 8:10 AM CDT XR CHEST 1 VIEW Routine 12/07/2015 12:00 AM CDT OXYGEN SATURATION, ARTERIAL Routine 12/06/2015 5:10 PM CDT OXYGEN SATURATION, ARTERIAL Routine 12/05/2015 11:15 AM CDT OXYGEN SATURATION, ARTERIAL Routine 12/05/2015 7:40 AM CDT CBC WITH AUTO DIFFERENTIAL Routine 12/05/2015 4:25 AM CDT COMPREHENSIVE METABOLIC PANEL Routine 12/05/2015 4:25 AM CDT XR CHEST 1 VIEW Routine 12/05/2015 12:00 AM CDT OXYGEN SATURATION, ARTERIAL Routine 12/04/2015 2:18 PM CDT OXYGEN SATURATION, ARTERIAL Routine 12/04/2015 7:24 AM CDT MAGNESIUM Routine 12/04/2015 4:21 AM CDT BASIC METABOLIC PANEL Routine 12/04/2015 4:21 AM CDT OXYGEN SATURATION, ARTERIAL Routine 12/03/2015 2:00 PM CDT OXYGEN SATURATION, ARTERIAL Routine 12/03/2015 7:05 AM CDT PROCALCITONIN POST-ANTIBIOTIC Routine 12/03/2015 5:29 AM CDT CBC WITH AUTO DIFFERENTIAL Routine 12/03/2015 5:29 AM CDT COMPREHENSIVE METABOLIC PANEL Routine 12/03/2015 5:29 AM CDT MICROBIOLOGY SPECIMEN REPORT (CONVERTED) Routine 12/02/2015 1:24 PM CDT MICROBIOLOGY SPECIMEN REPORT (CONVERTED) Routine 12/02/2015 1:05 PM CDT XR CHEST 1 VIEW Routine 12/02/2015 12:04 PM CDT INFECTION PREVENTION MRSA ONLY (STAPHYLOCOCCUS AUREUS) PCR Routine 12/02/2015 9:55 AM CDT INFLUENZA A/B ANTIGENS, RAPID Routine 12/02/2015 9:55 AM CDT PROCALCITONIN PRE-ANTIBIOTIC Routine 12/02/2015 4:59 AM CDT HEMOGRAM WITH MANUAL DIFFERENTIAL Routine 12/02/2015 4:59 AM CDT BASIC METABOLIC PANEL Routine 12/02/2015 4:59 AM CDT CARDIOLOGY REPORT 12/02/2015 12: 00 AM CDT OXYGEN SATURATION, ARTERIAL Routine 12/01/2015 6:26 PM CDT OXYGEN SATURATION, ARTERIAL Routine 12/01/2015 2:40 PM CDT STREP PNEUMONIAE AG, URINE Routine 12/01/2015 7:30 AM CDT LEGIONELLA PNEUMOPHILIA ANTIGEN, URINE Routine 12/01/2015 7:30 AM CDT HEMOGRAM WITH MANUAL DIFFERENTIAL Routine 12/01/2015 7:13 AM CDT MYCOPLASMA PNEUMONIAE ANTIBODY, IGM Routine 12/01/2015 7:13 AM CDT TROPONIN I Routine 12/01/2015 7:13 AM CDT MYCOPLASMA PNEUMONIAE ANTIBODY, IGG Routine 12/01/2015 7:13 AM CDT BASIC METABOLIC PANEL Routine 12/01/2015 7:[address] CHEST W CONTRAST Routine 12/01/2015 5 :46 AM CDT HEMOGLOBIN A1C Routine 12/01/2015 5:24 AM CDT CARDIOLOGY REPORT 12/01/2015 12: 00 AM CDT TRANSTHORACIC ECHO (TTE) COMPLETE W DOPPLER/CF Routine 12/01/2015 12:00 AM CDT B-TYPE NATRIURETIC PEPTIDE Routine 11/30/2015 11:32 PM CDT DIGOXIN LEVEL Routine 11/30/2015 11:32 PM CDT LACTATE Routine 11/30/2015 11:31 PM CDT UA WITH CULTURE REFLEX Routine 6 10:35 PM CDT MICROBIOLOGY SPECIMEN REPORT (CONVERTED) Routine 11/30/2015 9:10 PM CDT MICROBIOLOGY SPECIMEN REPORT (CONVERTED) Routine 11/30/2015 8:49 PM CDT TNI WITH LIPID PANEL Routine 11/30/2015 8:49 PM CDT HEMOGRAM WITH MANUAL DIFFERENTIAL Routine 11/30/2015 8:49 PM CDT APTT Routine 11/30/2015 8:49 PM CDT ERYTHROCYTE SEDIMENTATION RATE Routine 11/30/2015 8:49 PM CDT PROTIME-INR Routine 11/30/2015 8:49 PM CDT D-DIMER, QUANTITATIVE Routine 11/30/2015 8:49 PM CDT CRP (ACUTE PHASE) Routine 11/30/2015 8:4 9 PM CDT CHOLESTEROL, LDL, DIRECT Routine 11/30/2015 8:49 PM CDT CREATINE KINASE (CK), TOTAL Routine 11/30/2015 8:49 PM CDT COMPREHENSIVE METABOLIC PANEL Routine 11/30/2015 8:49 PM CDT PROCALCITONIN PRE-ANTIBIOTIC Routine 11/30/2015 8:46 PM CDT XR CHEST 1 VIEW Routine 11/30/2015 12:00 AM CDT documented in this encounter Results * Oxygen saturation, arterial (12/07/2015 11:50 AM CDT) Specimen Type Oximeter 12/07/2015 4:33 PM T [employer] HISTORICAL RESULTS Puncture Site FINGER 12/07/2015 4:33 PM T [employer] HISTORICAL RESULTS O2 Sat Pulse Oximetry 94.0 >=90.0 % 12/07/2015 4:33 PM T [facility] [employer] HISTORICAL RESULTS O2 Delivery Device CANNULA 12/07/2015 4:33 PM CDT [facility] [employer] HISTORICAL RESULTS Liter Flow 4.0 12/07/2015 4:33 PM T [employer] HISTORICAL RESULTS FiO2 36.0 % 12/07/2015 4:32 PM T [facility] [employer] HISTORICAL RESULTS BG Specimen Comment [id number] 12/07/2015 4:33 PM CDT [employer] HISTORICAL RESULTS Pulp Beater ID SRS 12/07/2015 4:33 PM T [facility] [employer] HISTORICAL RESULTS 12/07/2015 11:5 0 AM CDT 12/07/2015 4:32 PM CDT us Ginger Lincoln MD LAB BLOOD ORDERABLES Final Re sult Performing Organization Address [facility] Co de Phone Number [facility] [place] [facility]] HISTORICAL RESULTS * Oxygen saturation, arterial (12/07/2015 8:10 AM CDT) Specimen Type Oximeter 12/07/2015 10:42 AM T [facility] [place]NOTE 2] HISTORICAL RESULTS Puncture Site FINGER 12/07/2015 10:42 AM T [facility] [place]NOTE 2] HISTORICAL RESULTS O2 Sat Pulse Oximetry 92.0 >=90.0 % 12/07/2015 10:42 AM T [facility] [place]NOTE 2] HISTORICAL RESULTS O2 Delivery Device CANNULA 12/07/2015 10:42 AM T [facility] [place]NOTE 2] HISTORICAL RESULTS Liter Flow 4.0 12/07/2015 10:42 AM T [facility] [place]NOTE 2] HISTORICAL RESULTS FiO2 36.0 % 12/07/2015 10:41 AM T [facility] [place]NOTE 2] HISTORICAL RESULTS BG Specimen Comment [id number] 12/07/2015 10:42 AM T [facility] [place]NOTE 2] HISTORICAL RESULTS Pulp Beater ID SRS 12/07/2015 10:42 AM T [facility] [place]NOTE 2] HISTORICAL RESULTS BLOOD GAS COMMENTS 91% ON 3L 12/07/2015 10:42 AM T [facility] [place]NOTE 2] HISTORICAL RESULTS 12/07/2015 8:10 AM CDT 12/07/2015 10:41 AM CDT us Ginger Lincoln MD LAB BLOOD ORDERABLES Final Re sult Performing Organization Address [facility] Co de Phone Number [facility] [place]NOTE 2] HISTORICAL RESULTS * XR Chest 1 View (12/07/2015 12:00 AM CDT) Anatomical Region Laterality Modality Body, Chest N/A Radiographic Wendy ging 12/07/2015 Impressions 12/07/2015 10:46 AM CDT ?? Bibasilar alveolar airspace opacities and mild cardiomegaly, without significant change since 12/05/2015. ??Radiograph follow-up in 4 - 6 weeks is recommended to opacity resolution. THIS IS AN ELECTRONICALLY VERIFIED REPORT 12/07/2015 10:42 AM: ??Nando Upton M.D. ?? Nando Upton M.D. MD: 10:42 AM 10:42 AM ESTHER [EOD] Narrative 12/07/2015 10:46 AM CDT EXAMINATION: ??Portable Chest Radiograph HISTORY: ??Dyspnea, improved shortness of breath, coughing up white sputum. TECHNIQUE: ??An AP portable chest radiograph was obtained. COMPARISON: ??12/05/2015 FINDINGS: ?? The cardiac silhouette is mildly enlarged, grossly unchanged. ??Patchy bibasilar airspace opacities demonstrate no significant ??change. ??The pulmonary vasculatures within normal limits. ??No appreciable pneumothorax or large pleural effusion is seen. Procedure Note Provider, MD Richard - 10/12/2020 EXAMINATION: Portable Chest Radiograph HISTORY: Dyspnea, improved shortness of breath, coughing up whitesputum. TECHNIQUE: An AP portable chest radiograph was obtained. COMPARISON: 12/05/2015 FINDINGS: The cardiac silhouette is mildly enlarged, grossly unchanged. Patchy bibasilar airspace opacities demonstrate no significant change. The pulmonary vasculatures within normal limits. No appreciable pneumothoraxor large pleural effusion is seen. IMPRESSION: Bibasilar alveolar airspace opacities and mild cardiomegaly, without significant change since 12/05/2015. Radiograph follow-up in 4 - 6 weeksis recommended to opacity resolution. THIS IS AN ELECTRONICALLY VERIFIED REPORT 12/07/2015 10:42 AM: Nando Upton M.D. Nando Upton M.D. MD: 10:42 AM 10:42 AM ESTHER [EOD] [facility] Tan Rivera MD IMG XR PROCEDURES Final Result * Oxygen saturation, arterial (12/06/2015 5:10 PM CDT) Specimen Type Oximeter 12/06/2015 6:40 PM CDT [facility] [place] [facility]] HISTORICAL RESULTS Puncture Site FINGER 12/06/2015 6:40 PM CDT [facility] [place]NOTE 2] HISTORICAL RESULTS O2 Sat Pulse Oximetry 93.0 >=90.0 % 12/06/2015 6:40 PM CDT [facility] [place]NOTE 2] HISTORICAL RESULTS O2 Delivery Device NC 12/06/2015 6:40 PM T [facility] [place]NOTE 2] HISTORICAL RESULTS Liter Flow 3.0 12/06/2015 6:40 PM T [facility] [place]NOTE 2] HISTORICAL RESULTS FiO2 32.0 % 12/06/2015 6:40 PM T [facility] [place]NOTE 2] HISTORICAL RESULTS BG Specimen Comment [id number] 12/06/2015 6:40 PM T [facility] [place]NOTE 2] HISTORICAL RESULTS Pulp Beater ID KHF 12/06/2015 6:40 PM T [facility] [place]NOTE 2] HISTORICAL RESULTS 12/06/2015 5:1 0 PM CDT 12/06/2015 6:38 PM CDT Ginger Lincoln MD LAB BLOOD ORDERABLES Final Re sult [facility] [place]NOTE 2] HISTORICAL RESULTS * Oxygen saturation, arterial (12/05/2015 11:15 AM CDT) Specimen Type Oximeter 12/05/2015 3:31 PM T [facility] [place]NOTE 2] HISTORICAL RESULTS Puncture Site FINGER 12/05/2015 3:31 PM T [facility] [place]NOTE 2] HISTORICAL RESULTS O2 Sat Pulse Oximetry 91.0 >=90.0 % 12/05/2015 3:31 PM T [facility] [place]NOTE 2] HISTORICAL RESULTS O2 Delivery Device CANNULA 12/05/2015 3:31 PM T [facility] [place]NOTE 2] HISTORICAL RESULTS Liter Flow 6.0 12/05/2015 3:31 PM T [facility] [place]NOTE 2] HISTORICAL RESULTS FiO2 44.0 % 12/05/2015 3:31 PM T [facility] [place]NOTE 2] HISTORICAL RESULTS Pulp Beater ID BNP 12/05/2015 11:1 5 AM CDT 12/05/2015 3:31 PM CDT us Ginger Lincoln MD LAB BLOOD ORDERABLES Final Re sult Performing Organization Address [facility] de Phone Number [facility] [place]NOTE 2] HISTORICAL RESULTS * Oxygen saturation, arterial (12/05/2015 7:40 AM CDT) Pathologist [facility] Specimen Type Oximeter Puncture Site FINGER O2 Sat Pulse Oximetry 92.0 >=90.0 % O2 Delivery Device CANNULA Liter Flow 6.0 FiO2 44.0 % Pulp Beater ID BNP 12/05/2015 7:40 AM CDT 12/05/2015 9:03 AM CDT us Ginger Lincoln MD LAB BLOOD ORDERABLES Final Re sult Performing Organization Address [facility] de Phone Number [facility] [place]NOTE 2] HISTORICAL RESULTS * (ABNORMAL) Comprehensive metabolic panel (12/05/2015 4:25 AM CDT) Sodium 137 135 - 145 mmol/L Potassium 4.2 3.3 - 5.1 mmol/L Chloride 93(L) 96 - 108 mmol/L Carbon Dioxide 38(H) 22 - 32 mmol/L Anion Gap 6(L) 7 - 16 Glucose 94 70 - 100 mg/dL BUN 16 6 [...] age, and race of the patient. THE ESTIMATED GFR IS VALIDATED FOR AGES 18-70 YEARS STAGE ?mL/Min ?DESCRIPTION ??1 ?90 mL/min or more ?Normal or elevated GFR ??2 ? 60-89 mL/min ?Mildly decreased GFR ??3 ? 30-59 mL/min ?Moderately decreased GFR ??4 ? 15-29 mL/min ?Severely decreased GFR ??5 ? <15 mL/min ? Kidney failure or on dialysis @ Est GFR (Cockcroft-G) 205 ml/MIN Calcium 9.0 8.6 - 10.0 mg/dL 12/05/2015 5:03 AM [facility] H[facility]ORICAL RESULTS Total Protein 6.5 6.4 - 8.3 g/dL 12/05/2015 5:03 AM T [facility] [place]NOTE 2] HISTORICAL RESULTS Albumin 3.0(L) 3.5 - 5.2 g/dL 12/05/2015 5:03 AM T [facility] [place]NOTE 2] HISTORICAL RESULTS Globulin 3.5 2.3 - 3.5 gm/dL 12/05/2015 5:03 AM T [facility] [place]NOTE 2] HISTORICAL RESULTS Albumin/Globulin Ratio 0.9(L) 1.1 - 1.8 12/05/2015 5:03 AM T [facility] [place]NOTE 2] HISTORICAL RESULTS Total Bilirubin 0.8 0.0 - 1.2 mg/dL 12/05/2015 5:03 AM T [facility] [place]NOTE 2] HISTORICAL RESULTS AST 37 0 - 40 U/L 12/05/2015 5:16 AM T [facility] [place]NOTE 2] HISTORICAL RESULTS ALT 52(H) 0 - 41 U/L 12/05/2015 5:03 AM T [facility] [place]NOTE 2] HISTORICAL RESULTS Alkaline Phosphatase 60 40 - 129 U/L 12/05/2015 4:25 AM CDT 12/05/2015 4:37 AM CDT us M Tan Rivera MD LAB BLOOD ORDERABLES Final Res ult [facility] [place]NOTE 2] HISTORICAL RESULTS * (ABNORMAL) CBC with auto differential (12/05/2015 4:25 AM CDT) WBC 9.7 4.6 - 10.2 x10 3/ul 12/05/2015 4:51 AM T [facility] [place]NOTE 2] HISTORICAL RESULTS RBC 4.88 4.11 - 5.71 x10 6/ul 12/05/2015 4:51 AM T [facility] [place]NOTE 2] HISTORICAL RESULTS Hemoglobin 14.6 13.0 - 17.0 g/dl 12/05/2015 4:51 AM T [facility] [place]NOTE 2] HISTORICAL RESULTS Hct 47.0 38.2 - 48.5 % 12/05/2015 4:51 AM T [facility] [place]NOTE 2] HISTORICAL RESULTS MCV 96.3 80.0 - 97.0 fl 12/05/2015 4:51 AM T [facility] [place]NOTE 2] HISTORICAL RESULTS MCH 29.9 27.0 - 31.2 pg 12/05/2015 4:51 AM CDT [facility] [place]NOTE 2] HISTORICAL RESULTS MCHC 31.1(L) 31.8 - 35.4 g/dl 12/05/2015 4:51 AM CDT [facility] [place]NOTE 2] HISTORICAL RESULTS RDW 15.3(H) 11.6 - 14.8 % 12/05/2015 4:51 AM T [facility] [place]NOTE 2] HISTORICAL RESULTS Plt Count 118(L) 124 - 400 x10 3/ul 12/05/2015 4:51 AM T [facility] [place]NOTE 2] HISTORICAL RESULTS MPV 10.5(H) 7.4 - 10.4 fl 12/05/2015 4:51 AM [facility] HISTORICAL RESULTS Neut % 27.4(L) 37.0 - 85.0 % 12/05/2015 4:51 AM [facility] HISTORICAL RESULTS Immature Gran % 0.4 0.0 - 3.0 % Lymph % 58.0(H) 5.0 - 45.0 % 12/05/2015 4:51 AM [facility] HISTORICAL RESULTS [place] % 11.3 3.0 - 15.0 % Eos % 2.4 0.0 - 7.0 % Baso % 0.5 0.0 - 2.0 % Absolute Neuts (auto) 2.6 1.7 - 8.7 x10 3/ul Immature Gran # 0.0 0.0 - 0.3 x10 3/ul Absolute Lymphs (auto) 5.6(H) 0.2 - 4.6 x10 3/ul 12/05/2015 4:51 AM CDT [facility] [place]NOTE 2] HISTORICAL RESULTS Absolute Monos (auto) 1.1 0.1 - 1.5 x10 3/ul 12/05/2015 4:51 AM CDT [facility] [place]NOTE 2] HISTORICAL RESULTS Absolute Eos (auto) 0.2 0.0 - 0.7 x10 3/ul 12/05/2015 4:51 AM CDT [facility] [place]NOTE 2] HISTORICAL RESULTS Absolute Basos (auto) 0.1 0.0 - 0.2 x10 3/ul 12/05/2015 4:51 AM CDT [facility] [place]NOTE 2] HISTORICAL RESULTS 12/05/2015 4:25 AM CDT 12/05/2015 4:37 AM CDT us M Tan Rivera MD LAB BLOOD ORDERABLES Final Res ult [facility] [place]NOTE 2] HISTORICAL RESULTS * XR Chest 1 View (12/05/2015 12:00 AM CDT) Anatomical Region Laterality Modality Body, Chest N/A Radiographic Wendy ging 12/05/2015 Narrative 12/05/2015 12:14 PM CDT EXAMINATION: XR CHEST 1 VIEW TECHNIQUE: ??A single view of the chest (AP or PA) was performed. HISTORY: ??Dry cough for to my COMPARISON: ??Chest radiograph dated December 02, 2015 FINDINGS: ??The cardiac silhouette is enlarged. ??There is uncoiling of the thoracic aorta with calcification of the arch. There are patchy alveolar airspace opacities within the lower lobes bilaterally. ??The overall appearance is not significantly changed compared to the prior examination. ??The mid and upper lung banegas are clear. ??Pulmonary vascularity is within normal limits. ??No appreciable pneumothorax. Soft tissues and osseous structures are stable. ??Visualized upper abdomen is within normal limits CONCLUSION(S): ?? Right greater than left alveolar airspace opacity within the lung bases. ?? Follow-up in 4-6 weeks is recommended to ensure resolution. ??Overall appearance is unchanged compared to the prior examination. THIS IS AN ELECTRONICALLY VERIFIED REPORT 12/05/2015 12:11 PM: ??Ramesh Funk M.D. ?? Paul Goodson:suleman 09:52 AM 09:56 AM AMB [EOD] Procedure Note Provider, Richard, - 10/12/2020 EXAMINATION: XR CHEST 1 VIEW TECHNIQUE: A single view of the chest (AP or PA) was performed. HISTORY: Dry cough for to my COMPARISON: Chest radiograph dated December 02, 2015 FINDINGS: The cardiac silhouette is enlarged. There is uncoiling of the thoracic aorta with calcification of the arch. There are patchy alveolar airspace opacities within the lower lobes bilaterally. The overall appearance is not significantly changed comparedto the prior examination. The mid and upper lung banegas are clear.Pulmonary vascularity is within normal limits. No appreciable pneumothorax. Soft tissues and osseous structures are stable. Visualized upper abdomenis within normal limits CONCLUSION(S): Right greater than left alveolar airspace opacity within the lung bases. Follow-up in 4-6 weeks is recommended to ensure resolution. Overall appearance is unchanged compared to the prior examination. THIS IS AN ELECTRONICALLY VERIFIED REPORT 12/05/2015 12:11 PM: Ramesh Funk M.D. Paul Goodson:suleman 09:52 AM 09:56 AM AMB [EOD] Emily Rivera MD IMG XR PROCEDURES Final Result * Oxygen saturation, arterial (12/04/2015 2:18 PM CDT) Specimen Type Oximeter 12/04/2015 2:57 PM CDT [facility] [place] [facility] HISTORICAL RESULTS Puncture Site FINGER 12/04/2015 2:57 PM T [facility] [place]NOTE 2] HISTORICAL RESULTS O2 Sat Pulse Oximetry 92.0 >=90.0 % 12/04/2015 2:57 PM CDT [facility] [place]NOTE 2] HISTORICAL RESULTS O2 Delivery Device OXYMIZER 12/04/2015 2:57 PM T [facility] [place]NOTE 2] HISTORICAL RESULTS Liter Flow 4.0 12/04/2015 2:57 PM CDT [facility] [place]NOTE 2] HISTORICAL RESULTS FiO2 > 36.0 % 12/04/2015 2:57 PM T [facility] [place]NOTE 2] HISTORICAL RESULTS BG Specimen Comment [id number] 12/04/2015 2:57 PM T [facility] [place]NOTE 2] HISTORICAL RESULTS Pulp Beater ID JJK 12/04/2015 2:57 PM T [facility] [place]NOTE 2] HISTORICAL RESULTS 12/04/2015 2:18 PM CDT 12/04/2015 2:55 PM CDT Ginger Lincoln MD LAB BLOOD ORDERABLES Final Re sult [facility] [place]NOTE 2] HISTORICAL RESULTS * Oxygen saturation, arterial (12/04/2015 7:24 AM CDT) Specimen Type Oximeter Puncture Site FINGER O2 Sat Pulse Oximetry 92.0 >=90.0 % O2 Delivery Device OXYMIZER Liter Flow 5.0 FiO2 > 40.0 % 12/04/2015 2:54 PM T [facility] [place]NOTE 2] HISTORICAL RESULTS BG Specimen Comment [id number] 12/04/2015 9:52 AM T [facility] [place]NOTE 2] HISTORICAL RESULTS Pulp Beater ID JJK 12/04/2015 9:52 AM T [facility] [place]NOTE 2] HISTORICAL RESULTS 12/04/2015 7:24 AM CDT 12/04/2015 9:51 AM CDT us Ginger Lincoln MD LAB BLOOD ORDERABLES Final Re sult [facility] [place]NOTE 2] HISTORICAL RESULTS * Magnesium (12/04/2015 4:21 AM CDT) Magnesium 2.0 1.6 - 2.6 mg/dL Comment:Magnesium sulfate th erapy: 3.0-9.1 mg/dL 12/04/2015 4:21 AM CDT 12/04/2015 5:04 AM CDT us Ginger Lincoln MD LAB BLOOD ORDERABLES Final Re sult [facility] [place]NOTE 2] HISTORICAL RESULTS * (ABNORMAL) Basic metabolic panel (12/04/2015 4:21 AM CDT) Sodium 140 135 - 145 mmol/L Potassium 4.2 3.3 - 5.1 mmol/L Chloride 95(L) 96 - 108 mmol/L Carbon Dioxide 38(H) 22 - 32 mmol/L Anion Gap 7 7 - 16 Glucose 99 70 - 100 mg/dL BUN 18 6 [...] age, and race of the patient. THE ESTIMATED GFR IS VALIDATED FOR AGES 18-70 YEARS STAGE ?mL/Min ?DESCRIPTION ??1 ?90 mL/min or more ?Normal or elevated GFR ??2 ? 60-89 mL/min ?Mildly decreased GFR ??3 ? 30-59 mL/min ?Moderately decreased GFR ??4 ? 15-29 mL/min ?Severely decreased GFR ??5 ? <15 mL/min ? Kidney failure or on dialysis @ Est GFR (Cockcroft-G) 205 ml/MIN 12/04/2015 5:38 AM T [facility] [place]NOTE 2] HISTORICAL RESULTS Calcium 8.3(L) 8.6 - 10.0 mg/dL 12/04/2015 5:38 AM T [facility] [place]NOTE 2] HISTORICAL RESULTS 12/04/2015 4:21 AM CDT 12/04/2015 5:04 AM CDT us Ginger Lincoln MD LAB BLOOD ORDERABLES Final Re sult [facility] [place]NOTE 2] HISTORICAL RESULTS * Oxygen saturation, arterial (12/03/2015 2:00 PM CDT) Specimen Type Oximeter Puncture Site FINGER 12/03/2015 1:23 PM T [facility] [place]NOTE 2] HISTORICAL RESULTS O2 Sat Pulse Oximetry 92.0 >=90.0 % O2 Delivery Device OXYMIZER Liter Flow 6.0 FiO2 > 44.0 % 12/03/2015 1:23 PM T [facility] [place]NOTE 2] HISTORICAL RESULTS BG Specimen Comment [id number] 12/03/2015 1:23 PM T [facility] [place]NOTE 2] HISTORICAL RESULTS Pulp Beater ID JLW 12/03/2015 1:23 PM T [facility] [place]NOTE 2] HISTORICAL RESULTS 12/03/2015 2:00 PM CDT 12/03/2015 2:00 PM CDT us Ginger Lincoln MD LAB BLOOD ORDERABLES Final Re sult [facility] [place]NOTE 2] HISTORICAL RESULTS * Oxygen saturation, arterial (12/03/2015 7:05 AM CDT) Specimen Type Oximeter Puncture Site FINGER O2 Sat Pulse Oximetry 94.0 >=90.0 % O2 Delivery Device OXYMIZER Liter Flow 6.0 FiO2 > 44.0 % 12/03/2015 10:55 AM T [facility] [place] HISTORICAL RESULTS BG Specimen Comment [id number] Pulp Beater ID [id number] 12/03/2015 10:55 AM T [facility] [place]] HISTORICAL RESULTS 12/03/2015 7:05 AM CDT 12/03/2015 10:54 AM CDT us Ginger Lincoln MD LAB BLOOD ORDERABLES Final Re sult [facility] [place]] HISTORICAL RESULTS * (ABNORMAL) Comprehensive metabolic panel (12/03/2015 5:29 AM CDT) Sodium 142 135 - 145 mmol/L 12/03/2015 6:12 AM T [facility] [place] HISTORICAL RESULTS Potassium 4.4 3.3 - 5.1 mmol/L Chloride 97 96 - 108 mmol/L Carbon Dioxide 40(H) 22 - 32 mmol/L Anion Gap 5(L) 7 - 16 Glucose 107(H) 70 - 100 mg/dL BUN 19 6 - 20 mg/dL Creatinine 0.9 0.5 - 1.3 mg/dL Comment: NOTE: Estimated GFR (Cockroft-Gault) will NOT be calculated unless patient Height and Weight were entered. Also, Kidney Disease Stage (GFR) and Estimated GFR (Cockroft-Gault) will NOT be calculated if Creatinine result is <0.2. Kidney Disease Stage > 90 mL/MIN Comment: NOTE; ??The GFR is an estimated value using the creatinine, sex, age, and race of the patient. THE ESTIMATED GFR IS VALIDATED FOR AGES 18-70 YEARS STAGE ?mL/Min ?DESCRIPTION ??1 ?90 mL/min or more ?Normal or elevated GFR ??2 ? 60-89 mL/min ?Mildly decreased GFR ??3 ? 30-59 mL/min ?Moderately decreased GFR ??4 ? 15-29 mL/min ?Severely decreased GFR ??5 ? <15 mL/min ? Kidney failure or on dialysis @ Est GFR (Cockcroft-G) 137 ml/MIN 12/03/2015 6:12 AM T [facility] [place] HISTORICAL RESULTS Calcium 8.2(L) 8.6 - 10.0 mg/dL 12/03/2015 6:12 AM T [facility] [place] HISTORICAL RESULTS Total Protein 6.5 6.4 - 8.3 g/dL 12/03/2015 6:12 AM T [facility] [place] HISTORICAL RESULTS Albumin 3.2(L) 3.5 - 5.2 g/dL 12/03/2015 6:12 AM T [facility] [place] HISTORICAL RESULTS Globulin 3.3 2.3 - 3.5 gm/dL 12/03/2015 6:12 AM T [facility] [place] HISTORICAL RESULTS Albumin/Globulin Ratio 1.0(L) 1.1 - 1.8 12/03/2015 6:12 AM T [facility] [place] HISTORICAL RESULTS Total Bilirubin 0.6 0.0 - 1.2 mg/dL 12/03/2015 6:12 AM T [facility] [place] [facility] HISTORICAL RESULTS AST 38 0 - 40 U/L ALT 69(H) 0 - 41 U/L Alkaline Phosphatase 63 40 - 129 U/L 12/03/2015 5:29 AM CDT 12/03/2015 5:46 AM CDT us M Tan Rivera MD LAB BLOOD ORDERABLES Final Res ult [facility] [place] HISTORICAL RESULTS * (ABNORMAL) CBC with auto differential (12/03/2015 5:29 AM CDT) WBC 12.0(H) 4.6 - 10.2 x10 3/ul RBC 4.92 4.11 - 5.71 x10 6/ul 12/03/2015 6:45 AM T [facility] [place] HISTORICAL RESULTS Hemoglobin 14.8 13.0 - 17.0 g/dl Hct 48.6(H) 38.2 - 48.5 % MCV 98.8(H) 80.0 - 97.0 fl MCH 30.1 27.0 - 31.2 pg 12/03/2015 6:45 AM [facility] RES[facility] MCHC 30.5(L) 31.8 - 35.4 g/dl 12/03/2015 6:45 AM [facility] HISTORICAL RESULTS RDW 16.0(H) 11.6 - 14.8 % 12/03/2015 6:45 AM [facility] HISTOR[facility] RESULTS Plt Count 135 124 - 400 x10 3/ul 12/03/2015 6:45 AM [facility] HISTOR[facility] RESULTS MPV 10.8(H) 7.4 - 10.4 fl 12/03/2015 6:45 AM [facility] HISTOR[facility] RESULTS Neut % 26.9(L) 37.0 - 85.0 % 12/03/2015 6:45 AM [facility] HISTORICAL RESULTS Immature Gran % 0.5 0.0 - 3.0 % 12/03/2015 6:45 AM [facility] HISTOR[facility] RESULTS Lymph % 59.4(H) 5.0 - 45.0 % 12/03/2015 6:45 AM [facility] HISTORICAL RESULTS [place] % 10.3 3.0 - 15.0 % 12/03/2015 6:45 AM [facility] HISTORICAL RESULTS Eos % 2.3 0.0 - 7.0 % 12/03/2015 6:45 AM [facility] HISTORICAL RESULTS Baso % 0.6 0.0 - 2.0 % 12/03/2015 6:45 AM [facility] HISTORICAL RESULTS Absolute Neuts (auto) 3.2 1.7 - 8.7 x10 3/ul 12/03/2015 6:45 AM [facility] Immature Gran # 0.1 0.0 - 0.3 x10 3/ul 12/03/2015 6:45 AM [facility] HISTORICAL RESULTS Absolute Lymphs (auto) 7.1(H) 0.2 - 4.6 x10 3/ul 12/03/2015 6:45 AM CDT [facility] [place] HISTORICAL RESULTS Absolute Monos (auto) 1.2 0.1 - 1.5 x10 3/ul 12/03/2015 6:45 AM CDT [facility] [place] HISTORICAL RESULTS Absolute Eos (auto) 0.3 0.0 - 0.7 x10 3/ul 12/03/2015 6:45 AM CDT [facility] [place] HISTORICAL RESULTS Absolute Basos (auto) 0.1 0.0 - 0.2 x10 3/ul 12/03/2015 6:45 AM CDT [facility] [place] HISTORICAL RESULTS 12/03/2015 5:29 AM CDT 12/03/2015 5:46 AM CDT us Emily Rivera MD LAB BLOOD ORDERABLES Final Res ult [facility] [place] HISTORICAL RESULTS * PROCALCITONIN Post-antibiotic (12/03/2015 5:29 AM CDT) PROCALCITONIN Post-antibiotic 0.14 0 - 0.24 ng/mL 12/03/2015 7:00 AM CDT [facility] [place] HISTORICAL RESULTS Comment: Guidelines for use with Community Acquired Pneumonia(CAP)-ONLY: ?? <0.1 ng/mL or decrease by >90% from initial: ?Cessation of antibiotics is STRONGLY encouraged ?? 0.1-0.24 ng/mL or decrease by >80% from initial: ?Cessation of antibiotics is encouraged ?? 0.25-0.5 ng/mL: Cessation of antibiotics is discouraged ?? >0.5 ng/mL: Cessation of antibiotics is STRONGLY discouraged 12/03/2015 5:29 AM CDT 12/03/2015 5:46 AM CDT us Manan Avila MD LAB BLOOD ORDERABLES F inal Result [facility] [place] HISTORICAL RESULTS * Microbiology Specimen Report (Converted) (12/02/2015 1:24 PM CDT) 12/02/2015 1:24 PM CDT 12/02/2015 2:06 PM CDT [facility] HISTORICAL RESULTS - 12/02/2015 1:24 PM CDT Microbiology Specimen Report (Converted) SPECIMEN [id number] ?? COLLECTED: 2015-12-02 13:24:00 [id number] ?? REQ#: [id number] REQUESTING DR: Emily Rivera MD ?? SOURCE: BLOOD ?? SP DESC: COMMENT: RAC BC Draw ? RHAND BC Draw ?? --- PROCEDURE --- ?--- RESULT --- ?? CULTURE BLOOD ADULT (SET OF 2) ??(Final) ??- ??Performed at [facility] ?* NO GROWTH DAY 5 - [facility] ? [address] ? [place] [address] ? Jamison Zarate MD Procedure Note 2018 Microbiology Specimen Report (Converted) SPECIMEN [id number] COLLECTED: 2015-12-02 13:24:00 [id number] REQ#:[id number] REQUESTING DR: Emily Rivera MD SOURCE: BLOOD SP DESC: COMMENT: RAC BC Draw RHAND BC Draw --- PROCEDURE --- --- RESULT --- CULTURE BLOOD ADULT (SET OF 2) (Final) - Performed at [facility] * NO GROWTH DAY 5 - [facility] [address] [place] [address] Jamison Zarate MD Emily Rivera MD LAB BLOOD ORDERABLES Final Res ult [facility] [place] HISTORICAL RESULTS * Microbiology Specimen Report (Converted) (12/02/2015 1:05 PM CDT) 12/02/2015 1:05 PM CDT 12/02/2015 1:10 PM CDT Narrative [facility] [place] HISTORICAL RESULTS - 12/02/2015 1:05 PM CDT Microbiology Specimen Report (Converted) SPECIMEN [id number] ?? COLLECTED: 2015-12-02 13:05:00 [id number] ?? REQ#: [id number] REQUESTING DR: Emily Rivera MD ?? SOURCE: BLOOD ?? SP DESC: COMMENT: RAC BC Draw ?? --- PROCEDURE --- ?--- RESULT --- ?? CULTURE BLOOD ADULT (SET OF 2) ??(Final) ??- ??Performed at [facility] ?* NO GROWTH DAY 5 - [facility] ? [address] [place] [address] ? [place] [address] ? Jamison Zarate MD Procedure Note 2018 Microbiology Specimen Report (Converted) SPECIMEN [id number] COLLECTED: 2015-12-02 13:05:00 [id number] REQ#:[id number] REQUESTING DR: Emily Rivera MD SOURCE: BLOOD SP DESC: COMMENT: RAC BC Draw --- PROCEDURE --- --- RESULT --- CULTURE BLOOD ADULT (SET OF 2) (Final) - Performed at [facility] * NO GROWTH DAY 5 [place] [address] Jamison Zarate MD Emily Rivera MD LAB BLOOD ORDERABLES Final Res ult [facility] [place] HISTORICAL RESULTS * XR Chest 1 View (12/02/2015 12:04 PM CDT) Anatomical Region Laterality Modality Body, Chest N/A Radiographic Wendy ging 12/02/2015 12:0 4 PM CDT Impressions 12/02/2015 1:25 PM CDT ?? 1. ??Right greater than left basilar atelectasis versus pneumonia. ??A follow-up radiograph in 4 - 6 weeks is recommended to ensure complete resolution. 2. ??Cardiomegaly and pulmonary vascularity congestion, slightly improved since November 30, 2015. THIS IS AN ELECTRONICALLY VERIFIED REPORT 12/02/2015 1:21 PM: ??Jean-Pierre Owens M.D. ?? Jean-Pierre Owens M.D. AB: 01:21 PM 01:21 PM ESTHER [EOD] Narrative 12/02/2015 1:25 PM CDT EXAMINATION: ??AP portable chest radiograph. HISTORY: ??Fever this morning, shortness of breath for the last 2 weeks. TECHNIQUE: ??AP portable chest radiograph. COMPARISON: ??Chest radiograph from November 30, 2015. FINDINGS: ??There is pulmonary vascularity congestion. ??There is right greater than left basilar airspace opacity. ??Some of the left basilar opacity corresponds to prominent epicardial fat visualized on recent CT. ??The cardiomediastinal silhouette is stable. ??There is cardiomegaly, unchanged. ?? There are no acute osseous abnormalities visualized. Procedure Note Provider, MD Richard - 10/12/2020 EXAMINATION: AP portable chest radiograph. HISTORY: Fever this morning, shortness of breath for the last 2 weeks. TECHNIQUE: AP portable chest radiograph. COMPARISON: Chest radiograph from November 30, 2015. FINDINGS: There is pulmonary vascularity congestion. There is rightgreater than left basilar airspace opacity. Some of the left basilar opacity corresponds to prominent epicardial fat visualized on recent CT. The cardiomediastinal silhouette is stable. There is cardiomegaly, unchanged. There are no acute osseous abnormalities visualized. IMPRESSION: 1. Right greater than left basilar atelectasis versus pneumonia. Afollow-up radiograph in 4 - 6 weeks is recommended to ensure complete resolution. 2. Cardiomegaly and pulmonary vascularity congestion, slightly improvedsince November 30, 2015. THIS IS AN ELECTRONICALLY VERIFIED REPORT 12/02/2015 1:21 PM: Jean-Pierre Owens M.D. Jean-Pierre Owens M.D. AB: 01:21 PM 01:21 PM ESTHER [EOD] Emily Rivera MD IMG XR PROCEDURES Final Result * MRSA PCR, surveillance (12/02/2015 9:55 AM CDT) [facility] MRSA Surveill Initial MRSA NEGATIVE NEGATIVE 12/02/2015 12:12 PM CDT [facility] [place] HISTORICAL RESULTS Comment:MRSA target DNA sequ ences are not detected. 12/02/2015 9:55 AM CDT 12/02/2015 11:02 AM CDT Narrative [facility] [place] HISTORICAL RESULTS - 12/02/2015 12:12 PM CDT Collected By tv Emily Rivera MD LAB MICROBIOLOGY - GENERAL ORD ERABLES Final Result Performing Organization Address [facility] de Phone Number [facility] [place] [facility] HISTORICAL RESULTS * Influenza A/B antigens, rapid (12/02/2015 9:55 AM CDT) [facility] Influenza A Ag NEGATIVE NEGATIVE 12/02/2015 11:16 AM CDT [facility] [place] HISTORICAL RESULTS Influenza B Ag NEGATIVE NEGATIVE 12/02/2015 11:16 AM CDT [facility] [place] HISTORICAL RESULTS Comment: A NEGATIVE RESULT DOES NOT ELIMINATE THE POSSIBILITY OF AN ?? INFLUENZA A OR B INFECTION. ??INADEQUATE SPECIMEN COLLECTION ?? OR IMPROPER SAMPLE HANDLING/TRANSPORT, OR LOW LEVELS OF ?? VIRAL SHEDDING MAY YIELD A FALSE NEGATIVE RESULT. 12/02/2015 9:55 AM CDT 12/02/2015 10:57 AM CDT us Ember Orantes MD LAB MICROBIOLOGY - GENERAL ORDE RABLES Final Result Performing Organization Address [facility] de Phone Number [facility] [place] [facility]] HISTORICAL RESULTS * PROCALCITONIN Pre-antibiotic (12/02/2015 4:59 AM CDT) [facility] Procalcitonin 0.11 0.0 - 0.24 ng/mL 12/02/2015 9:21 AM T [employer] HISTORICAL RESULTS Comment: Guidelines for use with Community Acquired Pneumonia(CAP)- ONLY: ?? <0.1 ng/mL: Use of antibiotics is STRONGLY discouraged ?? 0.1-0.24 ng/mL: Use of antibiotics is discouraged ?? 0.25-0.5 ng/mL: Use of antibiotics is encouraged ?? >0.5 ng/mL: Use of antibiotics is STRONGLY encouraged ?? Recommend repeating every 2-3 days if initial PCT >0.24 12/02/2015 4:59 AM CDT 12/02/2015 8:40 AM CDT us Ginger Lincoln MD LAB BLOOD ORDERABLES Final Re sult [employer] HISTORICAL RESULTS * (ABNORMAL) Hemogram with manual differential (12/02/2015 4:59 AM CDT) WBC 14.1(H) 4.6 - 10.2 x10 3/ul 12/02/2015 5:18 AM CDT [employer] HISTORICAL RESULTS RBC 5.18 4.11 - 5.71 x10 6/ul 12/02/2015 5:18 AM T [facility] HISTORICAL RESULTS Hemoglobin 15.7 13.0 - 17.0 g/dl 12/02/2015 5:18 AM T [employer] HISTORICAL RESULTS Hct 51.3(H) 38.2 - 48.5 % 12/02/2015 5:18 AM T [employer] HISTORICAL RESULTS MCV 99.0(H) 80.0 - 97.0 fl 12/02/2015 5:18 AM T [employer] HISTORICAL RESULTS MCH 30.3 27.0 - 31.2 pg 12/02/2015 5:18 AM [facility] [employer] HISTORICAL RESULTS MCHC 30.6(L) 31.8 - 35.4 g/dl 12/02/2015 5:18 AM [facility] [employer] HISTORICAL RESULTS RDW 16.3(H) 11.6 - 14.8 % Plt Count 140 124 - 400 x10 3/ul MPV 10.4 7.4 - 10.4 fl Neut % 26.6(L) 37.0 - 85.0 % Immature Gran % 0.4 0.0 - 3.0 % Lymph % 61.2(H) 5.0 - 45.0 % [place] % 9.5 3.0 - 15.0 % Eos % 1.6 0.0 - 7.0 % Baso % 0.7 0.0 - 2.0 % Absolute Neuts (auto) 3.7 1.7 - 8.7 x10 3/ul Immature Gran # 0.1 0.0 - 0.3 x10 3/ul Absolute Lymphs (auto) 8.6(H) 0.2 - 4.6 x10 3/ul Absolute Monos (auto) 1.3 0.1 - 1.5 x10 3/ul Absolute Eos (auto) 0.2 0.0 - 0.7 x10 3/ul Absolute Basos (auto) 0.1 0.0 - 0.2 x10 3/ul Platelet Evaluation AGREE AGREE Comment:Slide review of plat elets correlates with instrument count. Anisocytosis 1+ Poikilocytosis 1+ 12/02/2015 4:59 AM CDT 12/02/2015 5:13 AM CDT Ginger Lincoln MD LAB BLOOD ORDERABLES Final Re sult [facility] [place] HISTORICAL RESULTS * (ABNORMAL) Basic metabolic panel (12/02/2015 4:59 AM CDT) Sodium 142 135 - 145 mmol/L Potassium 4.9 3.3 - 5.1 mmol/L Chloride 98 96 - 108 mmol/L Carbon Dioxide 37(H) 22 - 32 mmol/L Anion Gap 7 7 - 16 Glucose 117(H) 70 - 100 mg/dL BUN 19 6 - 20 mg/dL Creatinine 0.8 0.5 - 1.3 mg/dL Comment: NOTE: Estimated GFR (Cockroft-Gault) will NOT be calculated unless patient Height and Weight were entered. Also, Kidney Disease Stage (GFR) and Estimated GFR (Cockroft-Gault) will NOT be calculated if Creatinine result is <0.2. Kidney Disease Stage > 90 mL/MIN Comment: NOTE; ??The GFR is an estimated value using the creatinine, sex, age, and race of the patient. THE ESTIMATED GFR IS VALIDATED FOR AGES 18-70 YEARS STAGE ?mL/Min ?DESCRIPTION ??1 ?90 mL/min or more ?Normal or elevated GFR ??2 ? 60-89 mL/min ?Mildly decreased GFR ??3 ? 30-59 mL/min ?Moderately decreased GFR ??4 ? 15-29 mL/min ?Severely decreased GFR ??5 ? <15 mL/min ? Kidney failure or on dialysis @ Est GFR (Cockcroft-G) 154 ml/MIN 12/02/2015 5:36 AM CDT [facility] [employer] HISTORICAL RESULTS Calcium 8.4(L) 8.6 - 10.0 mg/dL 12/02/2015 5:36 AM CDT [facility] [employer] HISTORICAL RESULTS 12/02/2015 4:59 AM CDT 12/02/2015 5:13 AM CDT Ginger Lincoln MD LAB BLOOD ORDERABLES Final Re sult [facility] [place] HISTORICAL RESULTS * CARDIOLOGY REPORT (12/02/2015 12:00 AM CDT) Anatomical Region Laterality Modality Other Narrative 12/02/2015 12:00 AM CDT Ordered by an unspecified provider. us Historical Provider [facility] MAIDA SABA Final Result * Oxygen saturation, arterial (12/01/2015 6:26 PM CDT) Specimen Type Oximeter 12/01/2015 6:39 PM CDT [facility] [employer] HISTORICAL RESULTS Puncture Site FINGER 12/01/2015 6:39 PM CDT [facility] [employer] HISTORICAL RESULTS O2 Sat Pulse Oximetry 92.0 >=90.0 % 12/01/2015 6:39 PM CDT [facility] [place] HISTORICAL RESULTS Comment: CRITICAL VALUE CALLED and REPEATED. ?? at:1838 12/01/15 by:Isauro James to:[] O2 Delivery Device CANNULA 12/01/2015 6:39 PM T [facility] [place] HISTORICAL RESULTS Liter Flow 4.0 12/01/2015 6:39 PM T [facility] [place] HISTORICAL RESULTS FiO2 36.0 % 12/01/2015 6:39 PM T [facility] [place] HISTORICAL RESULTS BG Specimen Comment [id number] 12/01/2015 6:39 PM CDT [facility] [place] HISTORICAL RESULTS Pulp Beater ID JJK 12/01/2015 6:39 PM CDT [facility] [place] HISTORICAL RESULTS 12/01/2015 6:26 PM CDT 12/01/2015 6:37 PM CDT us Ginger Lincoln MD LAB BLOOD ORDERABLES Final Re sult [facility] [place] HISTORICAL RESULTS * Oxygen saturation, arterial (12/01/2015 2:40 PM CDT) Specimen Type Oximeter 12/01/2015 2:50 PM T [facility] [place] HISTORICAL RESULTS Puncture Site FINGER 12/01/2015 2:50 PM T [facility] [place] HISTORICAL RESULTS O2 Sat Pulse Oximetry 92.0 >=90.0 % 12/01/2015 2:50 PM T [facility] [place] HISTORICAL RESULTS O2 Delivery Device CANNULA 12/01/2015 2:50 PM T [facility] [place] HISTORICAL RESULTS Liter Flow 2.0 12/01/2015 2:50 PM T [facility] [place] HISTORICAL RESULTS FiO2 28.0 % 12/01/2015 2:50 PM T [facility] [place] HISTORICAL RESULTS BG Specimen Comment [id number] 12/01/2015 2:50 PM CDT [facility] [place] [facility] HISTORICAL RESULTS Pulp Beater ID JJK 12/01/2015 2:50 PM T [facility] [place] HISTORICAL RESULTS 12/01/2015 2:40 PM CDT 12/01/2015 2:49 PM CDT Ginger Lincoln MD LAB BLOOD ORDERABLES Final Re sult Performing Organization Address [facility] de Phone Number [facility] [place] HISTORICAL RESULTS * Strep pneumoniae antigen, urine (12/01/2015 7:30 AM CDT) Ur Strep pneumoniae Ag NEGATIVE NEGATIVE 12/01/2015 9:06 AM CDT [facility] [place] [facility] HISTORICAL RESULTS 12/01/2015 7:30 AM CDT 12/01/2015 8:40 AM CDT [facility] HISTORICAL RESULTS - 12/01/2015 9:06 AM CDT Collected By HM ?? Urine collection method Clean catch ?? Ginger Lincoln MD LAB MICROBIOLOGY - GENERAL OR DERABLES Final Result Performing Organization Address [facility] de Phone Number [facility] [place] HISTORICAL RESULTS * Legionella pneumophilia antigen, urine (12/01/2015 7:30 AM CDT) URINE LEGIONELLA PNEUMO AG Negative Negative 12/03/2015 12:37 AM CDT [facility] [place] HISTORICAL RESULTS Comment: Sample is negative for [...] one (1) ?? antigen. ?? Performed by [employer], ?? [address] [place] [id number] ?? [email or web address], Rigoberto Ramsay MD, Lab. Director ?? 12/01/2015 7:30 AM CDT 12/01/2015 7:38 AM CDT [facility] HISTORICAL RESULTS - 12/03/2015 12:37 AM CDT Collected By:HM ?? Urine collection method Clean catch Ginger Lincoln MD LAB MICROBIOLOGY - GENERAL OR DERABLES Final Result Performing Organization Address [facility] de Phone Number [facility] [place] HISTORICAL RESULTS * (ABNORMAL) Hemogram with manual differential (12/01/2015 7:13 AM CDT) WBC 14.5(H) 4.6 - 10.2 x10 3/ul 12/01/2015 7:40 AM CDT [facility] [place] HISTORICAL RESULTS RBC 4.97 4.11 - 5.71 x10 6/ul 12/01/2015 7:40 AM CDT [facility] [place] [facility] HISTORICAL RESULTS Hemoglobin 15.3 13.0 - 17.0 g/dl 12/01/2015 7:40 AM CDT [facility] [place] HISTORICAL RESULTS Hct 48.0 38.2 - 48.5 % 12/01/2015 7:40 AM T [facility] [place] [facility] HISTORICAL RESULTS MCV 96.6 80.0 - 97.0 fl 12/01/2015 7:40 AM T [facility] [place] HISTORICAL RESULTS MCH 30.8 27.0 - 31.2 pg 12/01/2015 7:40 AM T [facility] [place] [facility] HISTORICAL RESULTS MCHC 31.9 31.8 - 35.4 g/dl 12/01/2015 7:40 AM T [facility] [place] [facility] HISTORICAL RESULTS RDW 16.2(H) 11.6 - 14.8 % 12/01/2015 7:40 AM T [facility] [place] [facility] HISTORICAL RESULTS Plt Count 157 124 - 400 x10 3/ul 12/01/2015 7:40 AM T [facility] [place] [facility] HISTORICAL RESULTS MPV 10.2 7.4 - 10.4 fl 12/01/2015 7:40 AM T [facility] [place] [facility] HISTORICAL RESULTS MANUAL DIFF MANUAL DIFF --------- -- 12/01/2015 8:17 AM T [facility] [place] HISTORICAL RESULTS Neutrophils % (Manual) 26(L) 37 - 80 % 12/01/2015 8:17 AM CDT [facility] [place] HISTORICAL RESULTS Lymphocytes % (Manual) 42 10 - 51 % 12/01/2015 8:[address] [facility]OR[facility] RESULTS Atypical Lymphs % 24(H) 0 - 6 % 12/01/2015 8:17 AM CDT [facility] [place] HISTORICAL RESULTS Monocytes % (Manual) 5 0 - 12 % 12/01/2015 8:[address] [facility]ISTOR[facility] RESULTS Eosinophils % (Manual) 2 0 - 7 % 12/01/2015 8:17 AM T [facility] [place] [facility] HISTORICAL RESULTS Basophils % (Manual) 1 0 - 1 % 12/01/2015 8:17 AM T [facility] [place] [facility] HISTORICAL RESULTS ABSOLUTE COUNTS ABSOLUTE COUNTS --------- -- 12/01/2015 8:17 AM T [facility] [place] [facility] HISTORICAL RESULTS Abs Neuts cells/mm3 3770 /ul 12/01/2015 8:17 AM T [facility] [place] [facility] HISTORICAL RESULTS Absolute Neutrophils 3.8 1.7 - 8.7 x10 3/ul 12/01/2015 8:17 AM T [facility] [place] [facility] HISTORICAL RESULTS Absolute Lymphocytes 6.1(H) 0.2 - 4.6 x10 3/ul ATYPICAL LYMPH ABS# 3.5(H) 0 - 0.3 x10 3/ul Absolute Monocytes 0.7 0.1 - 1.5 x10 3/ul Absolute Eosinophils 0.3 0.0 - 0.7 x10 3/ul Absolute Basophils 0.1 0.0 - 0.2 x10 3/ul Smudge Cells # 2 /100 WBC Platelet Evaluation AGREE AGREE Comment:Slide review of plat elets correlates with instrument count. Anisocytosis 1+ 12/01/2015 7:13 AM CDT 12/01/2015 7:27 AM T Narrative [facility] [place] [facility] HISTORICAL RESULTS - 12/01/2015 8:17 AM CDT us Ginger Lincoln MD LAB BLOOD ORDERABLES Final Re sult [facility] [place] [facility] HISTORICAL RESULTS * Troponin I (12/01/2015 7:13 AM CDT) [facility] Troponin I < 0.300 0.000 - 0.300 ng/mL 12/01/2015 7:54 AM CDT [facility] [place] [facility] HISTORICAL RESULTS Comment: Reference using [employer] Chemiluminescence ? Negative: Repeat in 4-6 hours as indicated. 12/01/2015 7:13 AM CDT 12/01/2015 7:27 AM CDT us Ginger Lincoln MD LAB BLOOD ORDERABLES Final Re sult Performing Organization Address [facility] de Phone Number [facility] [place] HISTORICAL RESULTS * Mycoplasma pneumoniae antibody, IgM (12/01/2015 7:13 AM CDT) [facility] M. pneumoniae IgM NEGATIVE NEGATIVE 12/01/2015 8:13 AM CDT [facility] [place]NOTE 2] HISTORICAL RESULTS 12/01/2015 7:13 AM CDT 12/01/2015 7:27 AM CDT us Ginger Lincoln MD LAB BLOOD ORDERABLES Final Re sult Performing Organization Address [facility] de Phone Number [facility] [place]NOTE 2] HISTORICAL RESULTS * (ABNORMAL) Mycoplasma pneumoniae antibody, IgG (12/01/2015 7:13 AM CDT) [facility] M. pneumoniae IgG 0.55(H) <=0.09 U/L 12/03/2015 12:54 AM CDT [facility] [place]NOTE 2] HISTORICAL RESULTS Comment: INTERPRETIVE INFORMATION: ??Mycoplasma pneumoniae Ab, IgG ?0.09 U/L or less ............ Negative ?0.10 - 0.32 U/L ............. Equivocal ?0.33 U/L or greater ......... Positive ?? INTERPRETIVE DATA: Over 50% of healthy adults have a ?? relatively high background of specific M. pneumoniae IgG ?? antibodies in their sera, probably because of past M. ?? pneumoniae infections. Therefore, paired sera obtained with ?? a time interval of 1 to 3 weeks are highly recommended in ?? adults to confirm reinfection by M. pneumoniae, which is ?? demonstrated by a significant change in IgG antibodies. A ?? significant change is indicated if one sample is above 0.32 ?? U/L and the other is below 0.20 U/L. ?? Performed by [employer], ?? [address], [facility] [place] [address] ?? [email or web address], Rigoberto Ramsay MD, Lab. Director ?? 12/01/2015 7:13 AM CDT 12/01/2015 7:27 AM CDT us Ginger Lincoln MD LAB BLOOD ORDERABLES Final Re sult [facility] [place] HISTORICAL RESULTS * (ABNORMAL) Basic metabolic panel (12/01/2015 7:13 AM CDT) Sodium 141 135 - 145 mmol/L 12/01/2015 7:56 AM T [facility] [employer] HISTORICAL RESULTS Potassium 4.1 3.3 - 5.1 mmol/L 12/01/2015 7:56 AM [facility] [employer] HISTORICAL RESULTS Chloride 99 96 - 108 mmol/L 12/01/2015 7:56 AM [facility] RES[facility] Carbon Dioxide 34(H) 22 - 32 mmol/L 12/01/2015 7:56 AM [facility] [employer] HISTORICAL RESULTS Anion Gap 8 7 - 16 12/01/2015 7:56 AM [facility] Glucose 101(H) 70 - 100 mg/dL 12/01/2015 7:56 AM T [facility] [employer] HISTORICAL RESULTS BUN 14 6 - 20 mg/dL 12/01/2015 7:56 AM [facility] [employer] HISTORICAL RESULTS Creatinine 0.6 0.5 - 1.3 mg/dL 12/01/2015 7:56 AM [facility] HISTORICAL RESULTS Comment: NOTE: Estimated GFR (Cockroft-Gault) will NOT be calculated unless patient Height and Weight were entered. Also, Kidney Disease Stage (GFR) and Estimated GFR (Cockroft-Gault) will NOT be calculated if Creatinine result is <0.2. Kidney Disease Stage > 90 mL/MIN 12/01/2015 7:56 AM T [facility] [place] HISTORICAL RESULTS Comment: NOTE; ??The GFR is an estimated value using the creatinine, sex, age, and race of the patient. THE ESTIMATED GFR IS VALIDATED FOR AGES 18-70 YEARS STAGE ?mL/Min ?DESCRIPTION ??1 ?90 mL/min or more ?Normal or elevated GFR ??2 ? 60-89 mL/min ?Mildly decreased GFR ??3 ? 30-59 mL/min ?Moderately decreased GFR ??4 ? 15-29 mL/min ?Severely decreased GFR ??5 ? <15 mL/min ? Kidney failure or on dialysis @ Est GFR (Cockcroft-G) 206 ml/MIN 12/01/2015 7:56 AM CDT [facility] [place] HISTORICAL RESULTS Calcium 8.4(L) 8.6 - 10.0 mg/dL 12/01/2015 7:56 AM CDT [facility] [place] HISTORICAL RESULTS 12/01/2015 7:13 AM CDT 12/01/2015 7:27 AM CDT us Ginger Lincoln MD LAB BLOOD ORDERABLES Final Re sult [facility] [place]] HISTORICAL RESULTS * CT Chest W Contrast (12/01/2015 5:46 AM CDT) Anatomical Region Laterality Modality Body N/A Computed Tomogra phy 12/01/2015 5:46 AM CDT Impressions 12/01/2015 6:31 AM CDT ?? Motion artifact as well as technical artifact associated with body habitus. ?? No large, central pulmonary embolus. Linear scar/atelectatic change within the lungs. ??Question developing infiltrates at the lower lobes. ??Follow-up is recommended. THIS IS AN ELECTRONICALLY VERIFIED REPORT 12/01/2015 6:28 AM: ??Jeanne Munoz M.D. ?? Jeanne Munoz M.D. [email or web address] 06:28 AM 06:28 AM [facility] [EOD] Narrative 12/01/2015 6:31 AM CDT EXAMINATION: ??CT CHEST WITH INTRAVENOUS CONTRAST HISTORY: ??Chest pain, shortness of breath, elevated D-dimer; acute onset of symptoms for 1 day TECHNIQUE: ??Axial computed tomography with intravenous contrast administration per standard protocol with coronal and sagittal reformatted images; 100 mL Omnipaque 350 intravenously at the left wrist without incident COMPARISON: ??09/28/2012 FINDINGS: ?? There is extensive motion artifact as well as technical artifact associated with body habitus. ??There is no large, central pulmonary embolus identified. ?? The central pulmonary arteries are prominent within the mediastinum. ??There is no acute aortic abnormality as imaged. ??The thoracic aorta is mildly prominent as well as tortuous. ??Atherosclerotic calcifications are noted within the coronary vasculature. ??The heart is enlarged. ??There is no definable pericardial effusion. ??There are calcified lymph nodes at the mediastinum and right hilar region. ??There is no mediastinal, supraclavicular, axillary or hilar lymphadenopathy as imaged. ??The thyroid is grossly unremarkable as evaluated, partially imaged. Lung windows demonstrate no pneumonic consolidation, pleural effusion or pneumothorax. There is linear scar/atelectatic change at the mid/lower lungs bilaterally. ??Developing infiltrates within the lower lobes is difficult to exclude given motion and some artifact associated with body habitus. There is no definable pulmonary soft tissue nodule or mass given motion and airspace opacities. The central airway is patent and midline. Images through the upper abdomen reveal a suspected splenule at the left upper abdomen. ??There is a calcification at the left adrenal gland. ??There is marked technical artifact. Bone windows reveal no acute fracture or suspicious lytic or blastic lesion. Degenerative joint disease is diffuse. Procedure Note Provider, MD Richard - 10/12/2020 EXAMINATION: CT CHEST WITH INTRAVENOUS CONTRAST HISTORY: Chest pain, shortness of breath, elevated D-dimer; acute onsetof symptoms for 1 day TECHNIQUE: Axial computed tomography with intravenous contrastadministration per standard protocol with coronal and sagittal reformatted images; 100 mL Omnipaque 350 intravenously at the left wrist without incident COMPARISON: 09/28/2012 FINDINGS: There is extensive motion artifact as well as technical artifactassociated with body habitus. There is no large, central pulmonary embolusidentified. The central pulmonary arteries are prominent within the mediastinum.There is no acute aortic abnormality as imaged. The thoracic aorta is mildlyprominent as well as tortuous. Atherosclerotic calcifications are noted within the coronary vasculature. The heart is enlarged. There is no definable pericardial effusion. There are calcified lymph nodes at the mediastinumand right hilar region. There is no mediastinal, supraclavicular, axillary or hilar lymphadenopathy as imaged. The thyroid is grossly unremarkable as evaluated, partially imaged. Lung windows demonstrate no pneumonic consolidation, pleural effusion or pneumothorax. There is linear scar/atelectatic change at the mid/lowerlungs bilaterally. Developing infiltrates within the lower lobes is difficultto exclude given motion and some artifact associated with body habitus. Thereis no definable pulmonary soft tissue nodule or mass given motion andairspace opacities. The central airway is patent and midline. Images through the upper abdomen reveal a suspected splenule at the leftupper abdomen. There is a calcification at the left adrenal gland. There ismarked technical artifact. Bone windows reveal no acute fracture or suspicious lytic or blasticlesion. Degenerative joint disease is diffuse. IMPRESSION: Motion artifact as well as technical artifact associated with bodyhabitus. No large, central pulmonary embolus. Linear scar/atelectatic change within the lungs. Question developing infiltrates at the lower lobes. Follow-up is recommended. THIS IS AN ELECTRONICALLY VERIFIED REPORT 12/01/2015 6:28 AM: Jeanne Munoz M.D. Jeanne Munoz M.D. JS:[email or web address] 06:28 AM 06:28 AM [facility] [EOD] Ginger Lincoln MD IMG CT PROCEDURES Final Resul t * Hemoglobin A1c (12/01/2015 5:24 AM CDT) [facility] Signature Hemoglobin A1c % 5.7 4.8 - 5.9 % 12/01/2015 6:20 AM CDT [facility] [place] HISTORICAL RESULTS Comment: [place] [employer] recommends that the goal of therapy should be an A1C hemoglobin of <7%. Reevaluate the treatment regimen in patients with an A1C >8%. 12/01/2015 5:24 AM CDT 12/01/2015 5:48 AM CDT Ginger Lincoln MD LAB BLOOD ORDERABLES Final Re sult [facility] [place] HISTORICAL RESULTS * CARDIOLOGY REPORT (12/01/2015 12:00 AM CDT) Anatomical Region Laterality Modality Other Narrative 12/01/2015 12:00 AM CDT Ordered by an unspecified provider. Historical Provider [facility] Final Result * Transthoracic Echo Complete W Doppler/CF (12/01/2015 12:00 AM CDT) Anatomical Region Laterality Modality Ultrasound 12/01/2015 Narrative 12/01/2015 1:35 PM CDT Results viewable in EMR, Cardiovascular [EOD] Procedure Note Provider, MD Richard - 10/12/2020 Results viewable in EMR, Cardiovascular [EOD] Ginger Lincoln MD CV ECHO PROCEDURES Final Resu lt * (ABNORMAL) Digoxin level (11/30/2015 11:32 PM CDT) [facility] Digoxin 0.4(L) 0.5 - 1.6 ng/mL 12/01/2015 12:10 AM CDT [facility] [place] HISTORICAL RESULTS Comment: New therapeutic range in use as of 08/03/16 11/30/2015 11:3 2 PM CDT 11/30/2015 11:35 PM CDT Graeme Schumacher MD LAB BLOOD ORDERABLES Final Re sult Performing Organization Address [facility]/State/[facility] Co de Phone Number [facility] [place]NOTE 2] HISTORICAL RESULTS * B-type natriuretic peptide (11/30/2015 11:32 PM CDT) [facility] B-Natriuretic Peptide 79 0 - 100 pg/mL 12/01/2015 12:10 AM T [facility] [place]NOTE 2] HISTORICAL RESULTS Comment: B Natriutetic Peptide METHOD: ??[employer] using [place]. Decision threshold of 100 [...] hours of bolus or infusion of nesiritide. 11/30/2015 11:3 2 PM CDT 11/30/2015 11:35 PM CDT Graeme Schumacher MD LAB BLOOD ORDERABLES Final Re sult Performing Organization Address [facility]/State/ZIP Co de Phone Number [facility] [place]NOTE [place]] HISTORICAL RESULTS * Lactate (11/30/2015 11:31 PM CDT) [facility] L-Lactate 1.0 mmol/L 11/30/2015 11:57 PM CDT [facility] [place]] HISTORICAL RESULTS Comment:Lactate Reference Ra nge: 0.5 - 2.2 mmol/L 11/30/2015 11:3 1 PM CDT 11/30/2015 11:35 PM CDT us Graeme Schumacher MD LAB BLOOD ORDERABLES Final Re sult [facility] [place]NOTE 2[place] HISTORICAL RESULTS * (ABNORMAL) UA with Culture Reflex (11/30/2015 10:35 PM CDT) Ur Collection Type CLEAN CATCH Ur Culture Indicated? C&S NOT INDICATED Urine Color YELLOW YELLOW Urine Clarity CLEAR CLEAR Urine Glucose (UA) NORMAL NORMAL mg/dL Urine Bilirubin NEGATIVE NEGATIVE mg/dl Urine Ketones NEGATIVE NEGATIVE mg/dL Ur Specific [place] 1.023 1.005 - 1.025 Urine Blood NEGATIVE NEGATIVE mg/dl Urine pH 5.0 5.0 - 8.0 Urine Protein NEGATIVE NEGATIVE mg/dL Urine Urobilinogen 4(H) NORMAL mg/dL Urine Nitrite NEGATIVE NEGATIVE Ur Leukocyte Esterase NEGATIVE NEGATIVE [place]/ul Ur Microscopic Review Not Indicated 11/30/2015 10:3 5 PM CDT 11/30/2015 10:55 PM CDT us Graeme Schumacher MD LAB URINE ORDERABLES Final Re sult Performing Organization Address [facility] Co de Phone Number [facility] [place]NOTE 2] HISTORICAL RESULTS * Microbiology Specimen Report (Converted) (11/30/2015 9:10 PM CDT) 11/30/2015 9:10 PM CDT 11/30/2015 9:16 PM CDT Narrative [facility] [place] HISTORICAL RESULTS - 11/30/2015 9:10 PM CDT Microbiology Specimen Report (Converted) SPECIMEN [id number] ?? COLLECTED: 2015-11-30 21:10:00 [id number] ?? REQ#: [id number] REQUESTING DR: Graeme Schumacher MD ?? SOURCE: BLOOD ?? SP DESC: COMMENT: Line Draw by RN ? LHAND BC Draw ?? --- PROCEDURE --- ?--- RESULT --- ?? CULTURE BLOOD ADULT (SET OF 2) ??(Final) ??- ??Performed at [facility] ?* NO GROWTH DAY 5 - [facility] ? [address] ? [place] [address] ? Jamison Zarate MD Procedure Note 2018 Microbiology Specimen Report (Converted) SPECIMEN [id number] COLLECTED: 2015-11-30 21:10:00 [id number] REQ#:[id number] REQUESTING DR: Graeme Schumacher MD SOURCE: BLOOD SP DESC: COMMENT: Line Draw by RN LHAND BC Draw --- PROCEDURE --- --- RESULT --- CULTURE BLOOD ADULT (SET OF 2) (Final) - Performed at [facility] * NO GROWTH DAY 5 - [facility] [address] [place] [address] Jamison Zarate MD us Graeme Schumacher MD LAB BLOOD ORDERABLES Final Re sult Performing Organization Address [facility] Co de Phone Number [facility] [place]] HISTORICAL RESULTS * Microbiology Specimen Report (Converted) (11/30/2015 8:49 PM CDT) 11/30/2015 8:49 PM CDT 11/30/2015 9:02 PM CDT Narrative [facility] [place] HISTORICAL RESULTS - 11/30/2015 8:49 PM CDT Microbiology Specimen Report (Converted) SPECIMEN [id number] ?? COLLECTED: 2015-11-30 20:49:00 [id number] ?? REQ#: [id number] REQUESTING DR: Graeme Schumacher MD ?? SOURCE: BLOOD ?? SP DESC: COMMENT: Line Draw by RN ? LHAND BC Draw ?? --- PROCEDURE --- ?--- RESULT --- ?? CULTURE BLOOD ADULT (SET OF 2) ??(Final) ??- ??Performed at [facility] ?* NO GROWTH DAY 5 - [facility] ? [address] ? [place] [address] ? Jamison Zarate MD Procedure Note 2018 Microbiology Specimen Report (Converted) SPECIMEN [id number] COLLECTED: 2015-11-30 20:49:00 [id number] REQ#:[id number] REQUEST[address]: Graeme Schumacher MD SOURCE: BLOOD SP DESC: COMMENT: Line Draw by RN AND BC Draw --- PROCEDURE --- --- RESULT --- CULTURE BLOOD ADULT (SET OF 2) (Final) - Performed at [facility] * NO GROWTH DAY 5 - [facility] [address] [place] [address] Jamison Zarate MD us Graeme Schumacher MD LAB BLOOD ORDERABLES Final Re sult [facility] [place] HISTORICAL RESULTS * (ABNORMAL) D-dimer, quantitative (11/30/2015 8:49 PM CDT) [facility] D-Dimer, Quantitative 1.23(H) 0.00 - 0.50 FEUug/ml 12/01/2015 1:48 AM CDT [facility] [place] HISTORICAL RESULTS Comment: Studies indicate that a D-Dimer level of <0.50 FEUug/ml has a >95% negative predictive value for DVT,DIC,PE and other embolus conditions. ??Levels >0.50 FEUug/ml may be present in a wide variety of conditions and should not be considered diagnostic of any disease state. 11/30/2015 8:49 PM CDT 11/30/2015 8:59 PM CDT [facility] HISTORICAL RESULTS - 12/01/2015 1:48 AM CDT Line Draw by RN ? LHAND BC Draw ?? Graeme Schumacher MD LAB BLOOD ORDERABLES Final Re sult Performing Organization Address [facility] Co de Phone Number [facility] [place]NOTE 2] HISTORICAL RESULTS * (ABNORMAL) CRP (acute phase) (11/30/2015 8:49 PM CDT) C-Reactive Protein 13.4(H) 0.0 - 4.9 mg/L 12/01/2015 1:46 AM CDT [facility] [place] HISTORICAL RESULTS 11/30/2015 8:49 PM CDT 11/30/2015 8:59 PM CDT [facility] HISTORICAL RESULTS - 12/01/2015 1:46 AM CDT Line Draw by RN ? LHAND BC Draw ?? Graeme Schumacher MD LAB BLOOD ORDERABLES Final Re sult Performing Organization Address [facility] Co de Phone Number [facility] [place] 2] HISTORICAL RESULTS * Creatine kinase (CK), total (11/30/2015 8:49 PM CDT) Creatine Kinase 26 20 - 200 U/L 12/01/2015 1:46 AM CDT [facility] [place] HISTORICAL RESULTS 11/30/2015 8:49 PM CDT 11/30/2015 8:59 PM CDT [facility] HISTORICAL RESULTS - 12/01/2015 1:46 AM CDT Line Draw by RN ? LHAND BC Draw ?? Graeme Schumacher MD LAB BLOOD ORDERABLES Final Re sult Performing Organization Address [facility] de Phone Number [facility] [place] 2[facility] HISTORICAL RESULTS * (ABNORMAL) Erythrocyte sedimentation rate (11/30/2015 8:49 PM CDT) Pathologist [facility] ESR 77(H) 0 - 10 mm/hr 12/01/2015 1:03 AM CDT [facility] [place] HISTORICAL RESULTS 11/30/2015 8:49 PM CDT 11/30/2015 8:59 PM CDT [facility] HISTORICAL RESULTS - 12/01/2015 1:03 AM CDT Line Draw by RN ? LHAND BC Draw ?? us Graeme Schumacher MD LAB BLOOD ORDERABLES Final Re sult Performing Organization Address [facility] de Phone Number [facility] [place]NOTE 2] HISTORICAL RESULTS * Cholesterol, LDL, direct (11/30/2015 8:49 PM CDT) [facility] LDL Cholesterol [place] 73 0 - 100 mg/dL 11/30/2015 9:43 PM CDT [facility] [place] HISTORICAL RESULTS Comment:High Risk > 159 mg/d L 11/30/2015 8:49 PM CDT 11/30/2015 8:59 PM CDT [facility] HISTORICAL RESULTS - 11/30/2015 9:43 PM CDT Line Draw by RN ? LHAND BC Draw ?? us Graeme Schumacher MD LAB BLOOD ORDERABLES Final Re sult Performing Organization Address [facility] de Phone Number [facility] [place]NOTE 2[facility] HISTORICAL RESULTS * (ABNORMAL) Hemogram with manual differential (11/30/2015 8:49 PM CDT) Pathologist [facility] WBC 13.3(H) 4.6 - 10.2 x10 3/ul 11/30/2015 9:10 PM CDT [facility] [place] HISTORICAL RESULTS RBC 5.01 4.11 - 5.71 x10 6/ul Hemoglobin 15.4 13.0 - 17.0 g/dl Hct 48.5 38.2 - 48.5 % MCV 96.8 80.0 - 97.0 fl MCH 30.7 27.0 - 31.2 pg MCHC 31.8 31.8 - 35.4 g/dl RDW 16.2(H) 11.6 - 14.8 % Plt Count 157 124 - 400 x10 3/ul MPV 10.3 7.4 - 10.4 fl MANUAL DIFF MANUAL DIFF --------- -- Neutrophils % (Manual) 37 37 - 80 % Lymphocytes % (Manual) 38 10 - 51 % Atypical Lymphs % 10(H) 0 - 6 % Monocytes % (Manual) 14(H) 0 - 12 % Eosinophils % (Manual) 1 0 - 7 % ABSOLUTE COUNTS ABSOLUTE COUNTS --------- -- Abs Neuts cells/mm3 4921 /ul Absolute Neutrophils 4.9 1.7 - 8.7 x10 3/ul 11/30/2015 10:33 PM CDT [facility] [place] HISTORICAL RESULTS Absolute Lymphocytes 5.1(H) 0.2 - 4.6 x10 3/ul 11/30/2015 10:33 PM CDT [facility] [place] HISTORICAL RESULTS ATYPICAL LYMPH ABS# 1.3(H) 0 - 0.3 x10 3/ul 11/30/2015 10:33 PM CDT [facility] [place]] HISTORICAL RESULTS Absolute Monocytes 1.9(H) 0.1 - 1.5 x10 3/ul 11/30/2015 10:33 PM CDT [facility] [place] HISTORICAL RESULTS Absolute Eosinophils 0.1 0.0 - 0.7 x10 3/ul 11/30/2015 10:33 PM CDT [facility] [place] HISTORICAL RESULTS Platelet Evaluation AGREE AGREE 11/30/2015 10:33 PM CDT [facility] [place] HISTORICAL RESULTS Comment:Slide review of plat elets correlates with instrument count. Anisocytosis 2+ 11/30/2015 10:33 PM T [facility] [place]] HISTORICAL RESULTS 11/30/2015 8:49 PM CDT 11/30/2015 8:59 PM CDT Narrative [facility] [place] [facility]] HISTORICAL RESULTS - 11/30/2015 10:33 PM CDT Line Draw by RN ? LHAND BC Draw ?? us Graeme Schumacher MD LAB BLOOD ORDERABLES Final Re sult [facility] [place]] HISTORICAL RESULTS * (ABNORMAL) TNI with LIPID PANEL (11/30/2015 8:49 PM CDT) Troponin I < 0.300 0.000 - 0.300 ng/mL 11/30/2015 9:28 PM T [facility] [place]] HISTORICAL RESULTS Comment: Reference using AM[employer]KA Chemiluminescence ? Negative: Repeat in 4-6 hours as indicated. Triglycerides 285(H) 0 - 199 mg/dL 11/30/2015 9:30 PM T [facility] [place]] HISTORICAL RESULTS Comment: LDL (measured) to follow due to Triglycerides >250 mg/dL 12 hr pc highly recommended for Triglyceride Cholesterol 126 0 - 199 mg/dL 11/30/2015 9:30 PM T [facility] [place]NOTE 2] HISTORICAL RESULTS Comment: Borderline: ??200-239 High Risk: ?? >239 HDL Cholesterol 16(L) 40 - 60 mg/dL 11/30/2015 9:30 PM CDT [facility] [place]] HISTORICAL RESULTS Comment: Major Risk ?< 40 mg/dL Moderate Risk ?40-60 mg/dL Negative Risk ?? > 60 mg/dL Cholesterol/HDL Ratio 7.9 11/30/2015 9:30 PM CDT [facility] [place]] HISTORICAL RESULTS Comment: Cholesterol / HDL Ratio 3.5:1 or less is desirable. Cholesterol / HDL Ratio greater than 5:1 is considered higher risk for developing heart disease. 11/30/2015 8:49 PM CDT 11/30/2015 8:59 PM CDT [facility] HISTORICAL RESULTS - 11/30/2015 9:30 PM CDT Line Draw by RN ? LHAND BC Draw ?? us Graeme Schumacher MD LAB BLOOD ORDERABLES Final Re sult [facility] [place]] HISTORICAL RESULTS * Protime-INR (11/30/2015 8:49 PM CDT) PT 13.4 11.8 - 14.5 SECONDS 11/30/2015 9:13 PM CDT [facility] [place] HISTORICAL RESULTS INR 1.01 0.01 - 5.99 11/30/2015 9:13 PM CDT [facility] [place] HISTORICAL RESULTS Comment: Recommended Therapeutic range for Oral Anticoagulant Therapy No anti-coagulation therapy ? Normal Range: ?0.8-1.4 Anti-coagulation therapy ? Low intensity therapy ?2.0-3.0 ? High intensity therapy ?? 2.5-3.5 Critical Value ? Greater than or equal to 6.0 Patients should be monitored for serious bleeding. ?? 11/30/2015 8:49 PM CDT 11/30/2015 8:59 PM CDT [facility] HISTORICAL RESULTS - 11/30/2015 9:13 PM CDT Line Draw by RN ? LHAND BC Draw ?? us Graeme Schumacher MD LAB BLOOD ORDERABLES Final Re sult Performing Organization Address [facility] Co de Phone Number [facility] [place] HISTORICAL RESULTS * (ABNORMAL) aPTT (11/30/2015 8:49 PM CDT) APTT 54(H) 26 - 33 SECONDS 11/30/2015 9:14 PM T [facility] [place] HISTORICAL RESULTS 11/30/2015 8:49 PM CDT 11/30/2015 8:59 PM CDT Narrative [facility] [place] 2[facility] HISTORICAL RESULTS - 11/30/2015 9:14 PM CDT Line Draw by RN ? LHAND BC Draw ?? us Graeme Schumacher MD LAB BLOOD ORDERABLES Final Re sult Performing Organization Address [facility] de Phone Number [facility] [place]NOTE 2[facility] HISTORICAL RESULTS * (ABNORMAL) Comprehensive metabolic panel (11/30/2015 8:49 PM CDT) Sodium 138 135 - 145 mmol/L Potassium 4.1 3.3 - 5.1 mmol/L Chloride 99 96 - 108 mmol/L Carbon Dioxide 32 22 - 32 mmol/L Anion Gap 7 7 - 16 Glucose 155(H) 70 - 100 mg/dL BUN 13 6 - 20 mg/dL Creatinine 0.7 0.5 [...] age, and race of the patient. THE ESTIMATED GFR IS VALIDATED FOR AGES 18-70 YEARS STAGE ?mL/Min ?DESCRIPTION ??1 ?90 mL/min or more ?Normal or elevated GFR ??2 ? 60-89 mL/min ?Mildly decreased GFR ??3 ? 30-59 mL/min ?Moderately decreased GFR ??4 ? 15-29 mL/min ?Severely decreased GFR ??5 ? <15 mL/min ? Kidney failure or on dialysis @ Calcium 8.4(L) 8.6 - 10.0 mg/dL Total Protein 6.6 6.4 - 8.3 g/dL Albumin 3.2(L) 3.5 - 5.2 g/dL Globulin 3.4 2.3 - 3.5 gm/dL Albumin/Globulin Ratio 0.9(L) 1.1 - 1.8 Total Bilirubin 0.5 0.0 - 1.2 mg/dL AST 90(H) 0 - 40 U/L 11/30/2015 9:30 PM CDT [facility] [place] HISTORICAL RESULTS ALT 128(H) 0 - 41 U/L 11/30/2015 9:30 PM CDT [facility] [place] HISTORICAL RESULTS Alkaline Phosphatase 86 40 - 129 U/L 11/30/2015 9:30 PM CDT [facility] [place] HISTORICAL RESULTS 11/30/2015 8:49 PM CDT 11/30/2015 8:59 PM CDT Narrative [facility] [place] [facility]] HISTORICAL RESULTS - 11/30/2015 9:30 PM CDT Line Draw by RN ? LHAND BC Draw ?? us Graeme Schumacher MD LAB BLOOD ORDERABLES Final Re sult Performing Organization Address [facility] Co de Phone Number [facility] [place]NOTE 2] HISTORICAL RESULTS * PROCALCITONIN Pre-antibiotic (11/30/2015 8:46 PM CDT) Procalcitonin 0.12 0.0 - 0.24 ng/mL 12/01/2015 1:12 AM CDT [facility] [place] HISTORICAL RESULTS Comment: Guidelines for use with Community Acquired Pneumonia(CAP)- ONLY: ?? <0.1 ng/mL: Use of antibiotics is STRONGLY discouraged ?? 0.1-0.24 ng/mL: Use of antibiotics is discouraged ?? 0.25-0.5 ng/mL: Use of antibiotics is encouraged ?? >0.5 ng/mL: Use of antibiotics is STRONGLY encouraged ?? Recommend repeating every 2-3 days if initial PCT >0.24 11/30/2015 8:46 PM CDT 12/01/2015 12:40 AM CDT us Graeme Schumacher MD LAB BLOOD ORDERABLES Final Re sult Performing Organization Address [facility]/ZIP Co de Phone Number [facility] [place]NOTE 2] HISTORICAL RESULTS * XR Chest 1 View (11/30/2015 12:00 AM CDT) Anatomical Region Laterality Modality Body, Chest N/A Radiographic Wendy ging 11/30/2015 Impressions 11/30/2015 9:56 PM CDT ?? 1. ??Cardiomegaly, pulmonary vascularity congestion and interstitial edema within both lungs, which is evidence for congestive heart failure. 2. ??Increased opacity lateral to the cardiac apex correlates with previously demonstrated prominent pericardial fat pad in this location. ??No definite evidence for focal consolidation within either lung. THIS IS AN ELECTRONICALLY VERIFIED REPORT 11/30/2015 9:53 PM: ??Gayathri Jaime M.D. ?? Gayathri Jaime M.D. SS:arabella 09:53 PM 09:53 PM SWO [EOD] Narrative 11/30/2015 9:56 PM CDT EXAMINATION: ??One view chest dated 11/30/15 at 2118 hours HISTORY: ??Recent chest x-ray and [facility] demonstrated pneumonia, therefore called back to the hospital today due to that finding. ??Chest pain for 4 days and shortness of breath for 1 week. ??Also complains of dizziness and nausea. COMPARISON: ??One-view chest dated 12/03/12 at 1214 hours, two-view chest dated 06/25/[address] chest dated 06/25/2009 TECHNIQUE: ??AP view is submitted. FINDINGS: ??There is cardiomegaly. ??There is pulmonary vascular congestion and interstitial edema within both lungs. ?? There is increased opacity within the left lower lung, lateral to the cardiac apex, similar when compared to the prior two-view chest dated 06/25/[address] chest dated 06/25/2009, which correlates with prominent pericardial fat pad along the left lateral aspect of the heart. ??No definite focal areas of consolidation. Procedure Note Provider, MD Richard - 10/12/2020 EXAMINATION: One view chest dated 11/30/15 at 2118 hours HISTORY: Recent chest x-ray and [facility] demonstrated pneumonia, therefore called back to the hospital today due to that finding. Chestpain for 4 days and shortness of breath for 1 week. Also complains ofdizziness and nausea. COMPARISON: One-view chest dated 12/03/12 at 1214 hours, two-view chestdated 06/25/[address] chest dated 06/25/2009 TECHNIQUE: AP view is submitted. FINDINGS: There is cardiomegaly. There is pulmonary vascular congestionand interstitial edema within both lungs. There is increased opacity within the left lower lung, lateral to thecardiac apex, similar when compared to the prior two-view chest dated 06/25/2009nd CT chest dated 06/25/2009, which correlates with prominent pericardial fat pad along the left lateral aspect of the heart. No definite focal areas of consolidation. IMPRESSION: 1. Cardiomegaly, pulmonary vascularity congestion and interstitial edema within both lungs, which is evidence for congestive heart failure. 2. Increased opacity lateral to the cardiac apex correlates withpreviously demonstrated prominent pericardial fat pad in this location. No definite evidence for focal consolidation within either lung. THIS IS AN ELECTRONICALLY VERIFIED REPORT 11/30/2015 9:53 PM: Gayathri Jaime M.D. Gayathri Jaime M.D. SS:arabella 09:53 PM 09:53 PM SWO [EOD] Graeme Schumacher MD IMG XR PROCEDURES Final Resul t documented in this encounter Visit Diagnoses Diagnosis Sepsis (HCC) Acute respiratory failure with hypoxia (CMS/HCC) (HCC) Pneumonia Pneumonia, organism unspecified Chronic diastolic heart failure (HCC) Chronic diastolic heart failure Other secondary pulmonary hypertension (HCC) Body mass index (BMI) of 45.0-49.9 in adult (HCC) Paroxysmal atrial fibrillation (CMS/HCC) (HCC) Atrial fibrillation Morbid (severe) obesity due to excess calories (HCC) Hyperlipidemia Other and unspecified hyperlipidemia Essential (primary) hypertension Unspecified essential hypertension Old myocardial infarction Type 2 diabetes mellitus without complications (CMS/HCC) (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
--- OUTSIDE RECORDS SUMMARY | 2024-05-14 16:54 | XMS_ITS | Encounter Summary ---
Author Organization [facility] Healthcare Address [address] [place] [id number] Care Team Providers Care Supervisor [employer] Name Role Phone No, Physician Primary Care Provider [phone] Encounter Details Date Type Department Care Team (Latest Contact Info) Description 12/03/2012 11:13 AM CDT - 12/03/2012 3:34 PM CDT Hospital Encounter [facility] Hypoxemia; Fever due to unspecified condition; Abnormal electrocardiogram; Atrial fibrillation (CMS/HCC) (HCC); Essential hypertension; Type 2 or unspecified type diabetes mellitus; Dependence on supplemental oxygen Social History Tobacco Use Types Packs/Day Years Used Date Smoking Tobacco: Never Assessed Sex and Gender Information Value Date Recorded Sex Assigned at Not on file Legal Sex Male 8:36 AM CDT Gender Identity Not on file Sexual Orientation Not on file documented as of this encounter Last Filed Vital Signs Vital Sign Reading Time Taken Comments Blood Pressure 137/69 12/03/2012 11:28 AM CDT Pulse 80 12/03/2012 11:28 AM CDT Temperature 37.3 ??C (99.1 ??F) 12/03/2012 11:28 AM C DT Respiratory Rate - - Oxygen Saturation 93% 12/03/2012 11:28 AM CDT Inhaled Oxygen Concentration - - Weight 158.8 kg (350 lb) 12/03/2012 11:28 AM CDT Height 182.9 cm (6') 12/03/2012 11:28 AM CDT Body Mass Index 47.47 12/03/2012 11:28 AM CDT documented in this encounter Plan of Treatment Not on file documented as of this encounter Procedures Procedure Name Priority Date/Time Associated Diagnosis Comments CBC WITH AUTO DIFFERENTIAL Routine 12/03/2012 11:32 AM CDT PROTIME-INR Routine 12/03/2012 11:32 AM CDT B-TYPE NATRIURETIC PEPTIDE Routine 12/03/2012 11:32 AM CDT XR CHEST 1 VIEW Routine 12/03/2012 11:22 AM CDT documented in this encounter Results * Protime-INR (12/03/2012 11:32 AM CDT) PT 12.5 12.2 - 14.8 SECONDS INR 0.91 0.01 - 5.99 Comment: Recommended Therapeutic range for Oral Anticoagulant Therapy No anti-coagulation therapy ? Normal Range: ?0.8-1.4 Anti-coagulation therapy ? Low intensity therapy ?2.0-3.0 ? High intensity therapy ?? 2.5-3.5 Critical Value ? Greater than or equal to 6.0 Patients should be monitored for serious bleeding. ?? 12/03/2012 11:3 2 AM CDT 12/03/2012 11:39 AM CDT us Historical Provider LAB BLOOD ORDERABLES Lizzy ortiz Result [facility] HISTORICAL RESULTS * (ABNORMAL) CBC with auto differential (12/03/2012 11:32 AM CDT) WBC 8.8 4.6 - 10.2 x10 3/ul RBC 5.37 4.11 - 5.71 x10 6/ul Hemoglobin 16.5 13.0 - 17.0 g/dl Hct 51.8(H) 38.2 - 48.5 % MCV 96.5 80.0 - 97.0 fl 12/03/2012 11:46 AM [facility] MCH 30.7 27.0 - 31.2 pg 12/03/2012 11:46 AM [facility] MCHC 31.9 31.8 - 35.4 g/dl 12/03/2012 11:46 AM [facility] RDW 14.8 11.6 - 14.8 % 12/03/2012 11:46 AM [facility] Plt Count 178 124 - 400 x10 3/ul 12/03/2012 11:46 AM [facility] MPV 11.2(H) 7.4 - 10.4 fl 12/03/2012 11:46 AM [facility] Differential Method AUTOMATED DIFF --------- -- 12/03/2012 11:46 AM [facility] Neut % 69.9 37.0 - 85.0 % 12/03/2012 11:46 AM [facility] Immature Gran % 0.5 0.0 - 3.0 % 12/03/2012 11:46 AM [facility] Lymph % 18.8 5.0 - 45.0 % 12/03/2012 11:46 AM [facility] [place] % 8.8 3.0 - 15.0 % 12/03/2012 11:46 AM [facility] Eos % 1.8 0.0 - 7.0 % 12/03/2012 11:46 AM [facility] Baso % 0.2 0.0 - 2.0 % 12/03/2012 11:46 AM [facility] ABSOLUTE COUNTS ABSOLUTE COUNTS --------- -- 12/03/2012 11:46 AM [facility] Absolute Neuts (auto) 6.2 1.7 - 8.7 x10 3/ul Immature Gran # 0.0 0.0 - 0.3 x10 3/ul Absolute Lymphs (auto) 1.7 0.2 - 4.6 x10 3/ul Absolute Monos (auto) 0.8 0.1 - 1.5 x10 3/ul Absolute Eos (auto) 0.2 0.0 - 0.7 x10 3/ul Absolute Basos (auto) 0.0 0.0 - 0.2 x10 3/ul 12/03/2012 11:3 2 AM CDT 12/03/2012 11:39 AM CDT us Historical Provider LAB BLOOD ORDERABLES Lizzy l Result [facility] HISTORICAL RESULTS * B-type natriuretic peptide (12/03/2012 11:32 AM CDT) [facility] B-Natriuretic Peptide 20 0 - 100 pg/mL Comment: B Natriutetic [...] hours of bolus or infusion of nesiritide. 12/03/2012 11:3 2 AM CDT 12/03/2012 11:39 AM CDT us Historical Provider LAB BLOOD ORDERABLES Lizzy l Result [facility] HISTORICAL RESULTS * XR Chest 1 View (12/03/2012 11:22 AM CDT) Anatomical Region Laterality Modality Body, Chest N/A Radiographic Wendy ging 12/03/2012 11:2 2 AM CDT Impressions 12/03/2012 12:40 PM CDT ?? 1. ??Limited exam due to technique. 2. ??Stable linear densities in the lower lungs may be due to scarring. See text above. 3. ??No definite acute cardiopulmonary process is seen. ??No significant interval changes seen since 09/28/12. THIS IS AN ELECTRONICALLY VERIFIED REPORT 12/03/2012 12:37 PM: ??Ashley Nieves M.D. Ashley Nieves M.D. KL:[email or web address] 12:37 PM 12:37 PM [EOD] Narrative 12/03/2012 12:40 PM CDT EXAMINATION: ??Portable Chest Radiograph HISTORY: ??Shortness of breath TECHNIQUE: An AP portable chest radiograph was obtained. COMPARISON: ??Chest radiographs of 09/28/12 and 06/26/09. FINDINGS: ?? Lung volumes are low and the view is lordotic, limiting evaluation. ?? Cardiomediastinal silhouette appears grossly stable. ??Linear densities project over the lower lobes and right mid lung similar to 09/28/12 although improved relative to 06/28/09. ??These may be due to scarring. These could be further evaluated with a standard two-view chest radiograph when clinically feasible. No obvious pleural effusion, pneumothorax or pulmonary vascular congestion is seen. Procedure Note Provider, MD Richard - 10/12/2020 EXAMINATION: Portable Chest Radiograph HISTORY: Shortness of breath TECHNIQUE: An AP portable chest radiograph was obtained. COMPARISON: Chest radiographs of 09/28/12 and 06/26/09. FINDINGS: Lung volumes are low and the view is lordotic, limiting evaluation. Cardiomediastinal silhouette appears grossly stable. Linear densitiesproject over the lower lobes and right mid lung similar to 09/28/12 althoughimproved relative to 06/28/09. These may be due to scarring. These could be further evaluated with a standard two-view chest radiograph when clinicallyfeasible. No obvious pleural effusion, pneumothorax or pulmonary vascular congestionis seen. IMPRESSION: 1. Limited exam due to technique. 2. Stable linear densities in the lower lungs may be due to scarring. See text above. 3. No definite acute cardiopulmonary process is seen. No significant interval changes seen since 09/28/12. THIS IS AN ELECTRONICALLY VERIFIED REPORT 12/03/2012 12:37 PM: sAhley Nieves M.D. Ashley Nieves M.D. KL:[email or web address] 12:37 PM 12:37 PM [EOD] us Historical Provider IMG XR PROCEDURES Final R esult documented in this encounter Visit Diagnoses Diagnosis Hypoxemia Fever due to unspecified condition Abnormal electrocardiogram Nonspecific abnormal electrocardiogram (ECG) (EKG) Atrial fibrillation (CMS/HCC) (HCC) Atrial fibrillation Essential hypertension Unspecified essential hypertension Type 2 or unspecified type diabetes mellitus Dependence on supplemental oxygen documented in this encounter Care Teams Supervisor [employer] Relationship Specialty Start Date End Date No, Physician PCP - General 1960 05/17/18 documented as of this encounter
--- OUTSIDE RECORDS SUMMARY | 2024-05-14 16:54 | XMS_ITS | Encounter Summary ---
Author Organization [facility] Healthcare Address [address] [place] [address] Care Team Providers Care Heat Reader Name Role Phone No, Physician Primary Care Provider [phone] Encounter Details Date Type Department Care Team (Latest Contact Info) Description 08/03/2014 10:07 PM CDT - 08/03/2014 10:35 PM CDT Hospital Encounter [facility] [place] [address] [facility] [address] [place], [place] [id number] Dental caries; Essential hypertension; Other and unspecified hyperlipidemia; Encounter for long-term (current) use of other medications Social History Tobacco Use Types Packs/Day Years Used Date Smoking Tobacco: Never Assessed Sex and Gender Information Value Date Recorded Sex Assigned at Not on file Legal Sex Male 8:36 AM CDT Gender Identity Not on file Sexual Orientation Not on file documented as of this encounter Last Filed Vital Signs Vital Sign Reading Time Taken Comments Blood Pressure 124/71 08/03/2014 10:20 PM CDT Pulse 88 08/03/2014 10:20 PM CDT Temperature 36.5 ??C (97.7 ??F) 08/03/2014 10:20 PM C DT Respiratory Rate - - Oxygen Saturation 93% 08/03/2014 10:20 PM CDT Inhaled Oxygen Concentration - - Weight 136.1 kg (300 lb) 08/03/2014 10:20 PM CDT Height 182.9 cm (6') 08/03/2014 10:20 PM CDT Body Mass Index 40.69 08/03/2014 10:20 PM CDT documented in this encounter Plan of Treatment Not on file documented as of this encounter Visit Diagnoses Diagnosis Dental caries Unspecified dental caries Essential hypertension Unspecified essential hypertension Other and unspecified hyperlipidemia Encounter for long-term (current) use of other medications documented in this encounter Care Teams Heat Reader Relationship Specialty Start Date End Date No, Physician PCP - General 1960 05/17/18 documented as of this encounter
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
--- OUTSIDE RECORDS SUMMARY | 2024-05-14 16:58 | XMS_ITS | Continuity of Care Document ---
Author Organization [facility] Address [address] [place] [address] Phone Care Team Providers Care Financial Sales Advisor Name Role Phone Inge Ramirez MD Unavailable Unavailable Medications Medication Instructions Dosage Effective [...] A VENOUS GLUCOSE METHOD. Test performed at [facility] [place] [id number]: KAILEE SAUCEDA MT([facility]) Panel Description: POC HEMOGLOBIN A1C Final POC HEMOGLOBIN A1C 2008 13:51:0 0 6.1 % OF TOTAL HGB H Final NON-DIABETC <6.0 % Test performed at [facility] [address]Aojzwenu: KAILEE SAUCEDA MT([facility]) Advance Directives Directive Yes / No Effective [...] Diagnoses Date Provider Providers Copied on Encounter [facility], [address], [place], [place], [id number] , tel: [phone] [facility] abnormal glucose (chief complaint) Screening for diabetes mellitus [address], [place], [place], [id number] , [place]. tel: [phone] OFFICE OUTPT NEW 30 MIN [facility], [address], [place], [place], [id number] , tel: [phone] [facility] sleep apnea (chief complaint) back pain (chief complaint) breathing problems (chief complaint) stomach bulging (chief complaint) left knee pain (chief complaint) Routine general medical examination at a health care facilityOverweight and obesityInsomnia with sleep apnea, unspecifiedShortness of breathRoutine general medical examination at a health care facility [address], [place], [place], [id number] , [place]. tel:[phone] Family History Family Member Type Diagnosis Age [...] Of Treatment Date Type Action Status Goal ALT. Due on due Goal PSA. Due on due Goal BMP fasting. Due on due Goal AST. Due on due Goal Urinalysis. Due on due Goal Lipid Panel. Due on due Referral Referred To: [address], [id number] Ordered: Referral: [facility]. Radiology. Diagnostic testing. ordered Future Order: Lab [...]
--- OUTSIDE RECORDS SUMMARY | 2024-05-14 16:58 | XMS_ITS | Continuity of Care Document ---
Author Organization [facility] Address [address] [facility] [place] [address] Phone Care Team Providers Care Filament Welder Name Role Phone Tony Mchugh MD Unavailable Unavailable Allergies, Adverse Reactions, Alerts Substance Reaction Status Criticality No Known Allergies Active No Inform ation Medications Medication Instructions Dosage Effective Dates (start - stop) Status Comments Cardizem CD 240 mg capsule,extended release take 1 capsule by oral route every day 240 MG - Active lisinopril 10 mg tablet take 1 tablet by oral route every day 10 MG - Active Coreg 6.25 mg tablet take 1 Tablet by or al route 2 times every day with food 6.25 MG - Active Procedures Procedure Date OFFICE/OUTPATIENT VISIT, EST PREV VISIT, NEW, AGE 40-64 Advance Directives Directive Yes / No Effective Date File Name No Information Encounters Encounter Description Practice Location Reason(s) For Visit Diagnoses Date Provider Providers Copied on Encounter OFFICE/OUTPA TIENT VISIT, EST [facility], [address] [place] [address] [place], [address], tel:[phone] [facility] HTN (chief complaint) urinary frequency (chief complaint) urinary frequency (chief complaint) Afib (chief complaint) Dietary surveillance and counselingBP - High blood pressureSleep apneaAtrial fibrillationUrinary frequency 5 Jeison Jimenez. [address] [place] [address], [address]. tel:[phone] Referring Provider: Tony Mchugh [address] [place] [address], [address]. tel:[phone] PREV VISIT, NEW, AGE 40-64 [facility], [address], [place], [address], tel:[phone] [facility] Family Medicine Physical (chief complaint) Routine Medical ExamDietary surveillance and counselingRoutine Medical Exam 5 Jeison Jimenez. [address], [address], [place], [address]. tel:[phone] Family History Family Member Type Diagnosis Age At Onset Father Problem (finding) Coronary artery disease 75 Mother Problem (finding) COPD Brother Problem (finding) Alive and well Payers Payer name Insurance type Covered alliance party ID Authoriza tion(s) No Information Social History Type Description Quantity Date Captured Comments Alcohol Use Details No Caffeine Use Details Unknown Tobacco Use Status Never smoked tobacco 2014 Smoking Status Never smoker Non-Smoking Tobacco Use Details : No Details Available : No Details Available Sex Male Vital Signs Date / Time: Height Weight BMI Pulse Rate Blood Pressure Temperature Respiratory Rate Body Surface Area Head Circumference BMI percentile Pulse Ox Inhaled Ox 12:16 PM 182.88 cm 320.00 lbs 43.4 0 kg/m eter (2) 86 /min 176/96 mm[Hg] 97.6 F 16 /min Chief Complaint And Reason For Visit From encounter dated '12/28/2014 10:00'. HTN (chief complaint). Description: Pt has HTN. Pt also has paroxymal afib. Pt is out of all his meds. Pt has no idea what he takes but he is out all of his meds. Pt taeks afib meds and also BP meds from cardiology but he has no idea what they are and he is out of all his meds for long time per patient. Pt denies any chest pain urinary frequency (chief complaint). Description: Pertinent negatives include constipation, diarrhea, vomiting, dysuria, hematuria, slow stream or urge incontinence. Associated symptoms additional comments: Pt c/o frequent urination for long time Pt denies any dribblign or difficulty with urination.. urinary frequency (chief complaint). Description: Pt urinate frequently throughout the day. Pt deneisa ny orthopnea or PND. Pt snores a little but not too bad per patient Afib (chief complaint). Description: Pt has paroxymal afib. Pt is on meds but no idea what they care. He is out. No chest pain or SOB Plan Of Treatment Date Type Action Status No Information History Of Present Illness Encounter Date Complaint History Of Prese nt Illness HTN Pt has HTN. Pt a lso has paroxymal afib. Pt is out of all his meds. Pt has no idea what he takes but he is out all of his meds. Pt taeks afib meds and also BP meds from cardiology but he has no idea what they are and he is out of all his meds for long time per patient. Pt denies any chest pain urinary frequency Pertinent nega tives include constipation, diarrhea, vomiting, dysuria, hematuria, slow stream or urge incontinence. Associated symptoms additional comments: Pt c/o frequent urination for long time Pt denies any dribblign or difficulty with urination.. urinary frequency Pt urinate shiela quently throughout the day. Pt deneisa ny orthopnea or PND. Pt snores a little but not too bad per patient Afib Pt has paroxymal afib. Pt is on meds but no idea what they care. He is out. No chest pain or SOB Instructions Date Instruction Additional Infor mation Prescribed Activity and Exercise Education Related to Dietary Surveillance and Counseling Prescribed Diet Educ ation/Lifestyle Education Regarding Diet Related to Dietary Surveillance and Counseling Physical activity counseling Rel ated to Dietary surveillance counseling Decrease caloric intake Related to Dietary surveillance counseling Assessments Type Assessment Date assessment Dietary surveillance and student success counselor ing assessment BP - High blood pressure 2014 assessment Sleep apnea assessment Atrial fibrillation assessment Urinary frequency Mental Status Date Cognitive Assessment Orientation - [place] ed to time, place, person, situation.
== END 2024-05-10 13:47 | disposition home or self-care (01) ==
PROVIDERS: PCP Family Medicine; Visit Provider Student in an Organized Health Care Education/Training Program
DX: M54.50 Low back pain, unspecified (principal); J44.9 Chronic obstructive pulmonary disease, unspecified; E78.5 Hyperlipidemia, unspecified; E66.9 Obesity, unspecified; I10 Essential (primary) hypertension; F41.9 Anxiety disorder, unspecified; E11.9 Type 2 diabetes mellitus without complications; I50.9 Heart failure, unspecified; R53.83 Other fatigue; L29.9 Pruritus, unspecified; Z77.21 Contact with and (suspected) exposure to potentially hazardous body fluids; I71.40 Abdominal aortic aneurysm, without rupture, unspecified
CPT/HCPCS: 36415; 72100; 80053; 80061; 80074; 82043; 83036; 84439; 85025; 85055

== ENCOUNTER 2024-06-26 11:13 | Outpatient (CLI) | payer MEDICARE, MEDICAID, SELFPAY ==
--- OUTSIDE RECORDS SUMMARY | 2024-06-26 12:14 | XMS_ITS | Continuity of Care Document ---
Author Organization [facility] Address [address] [facility] [place] [address] Phone Care Team Providers Care Photogrammetric Technician Name Role Phone Tony Mchugh MD Unavailable [...] Copied on Encounter OFFICE/OUTPA TIENT VISIT, EST [facility], [address] [place] [address], [id number], tel:[phone] [facility] HTN (chief complaint) urinary frequency (chief complaint) urinary frequency (chief complaint) Afib (chief complaint) Dietary surveillance and counselingBP - High blood pressureSleep apneaAtrial fibrillationUrinary frequency 201 5 Jeison Jimenez. [address], [place], [id number] , [place]. tel:[phone] Referring Provider: Tony Mchugh, [address] [place], [id number]. tel:[phone] PREV VISIT, NEW, AGE 40-64 [facility], [address], [place], [place], [id number], [place] tel:[phone] [facility] Medicine Physical (chief complaint) Routine Medical ExamDietary surveillance and counselingRoutine Medical Exam 5 Jeison Jimenez. [address], [address], [place], [place], [id number] , [place]. tel:[phone] Family History Family Member Type Diagnosis Age [...] Type Assessment Date assessment Dietary surveillance and corporate travel counselor ing assessment BP - High blood pressure 2014 assessment Sleep apnea assessment Atrial fibrillation assessment Urinary frequency Mental Status Date Cognitive Assessment Orientation - [place] ed to time, place, person, situation.
--- OUTSIDE RECORDS SUMMARY | 2024-06-26 12:14 | XMS_ITS | Clinical Summary ---
Author Organization [facility] Address [address] [place] [address]. [place], [place] [address] [place] [address] Care Team Providers Care Human Resources Compliance Manager Name Role Phone Davi Alyce Garcia Primary Care Provide r Allergies Active Allergy Reactions Criticality Noted Date Comments Lidocaine Angioedema,Swelling Medium 11/25/2021 Active Problems Problem Noted Date Diagnosed Date Reducible bulge of abdominal wall 06/28/2023 Fatigue 09/09/2019 Morbid obesity ([facility]) 09/09/2019 Non-seasonal allergic rhinitis due to pollen Obstructive sleep apnea 09/09/2019 Pulmonary hypertension ([facility]) 020 History of pneumonia 05/18/2016 Hypoxemia 05/18/2016 Shortness of breath 05/18/2016 Sleep disorder 05/18/2016 Resolved Problems Problem Noted Date Diagnosed Date Resolved Date Non-smoker 09/09/2019 11/26/2023 Social History Tobacco Use Types Packs/Day Years Used Date Smoking Tobacco: Never Assessed Sex and Gender Information Value Date Recorded Sex Assigned at Not on file 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 Gender Identity Not on file Sexual Orientation Not on file Plan of Treatment Health Maintenance Due Date Last Done Comments Colorectal Cancer Screening Colonoscopy (10 Years) 1958 Hepatitis C 1976 DTaP, Tdap and Td Vaccines ( 1 - Tdap) 1977 Zoster Vaccines (1 of 2) 2008 Pneumococcal Vaccine: 65+ Ye ars (1 of 1 - PCV) 08/18/2023 COVID-19 Vaccine ( - 2023-2 5 season) 2024 Influenza Adult (#1) 2024 RSV Immunization or 60+ Years (1 - 1-dose 75+ series) 2033 Meningococcal B Vaccine Aged Out No l onger eligible based on patient's age to complete this topic Meningococcal Vaccine Aged Out No pradip joe [...] age to complete this topic Insurance MEDICARE Care Teams Human Resources Compliance Manager Relationship Specialty Start Date End Date Dav[place] [address] PCP - General Physician [employer] [facility] 09/10/23
--- OUTSIDE RECORDS SUMMARY | 2024-06-26 12:15 | XMS_ITS | Referral Summary ---
Author Organization [id number] Address [address] [place] [address] Care Team Providers Care Scalp Treatment Specialist Name Role Phone No, Physician Unavailable Vangie Valentine MD Primary Care Provider [phone] Allergies Active Allergy Reactions Criticality Noted Date [...] Name Priority Date/Time Associated Diagnosis Comments CT ABDOMEN PELVIS W CONTRAST Routine 05/13/2018 12:00 AM EXTRUSION PRESS SUPERVISOR from Last 3 Months or Most Recently Relevant to Health Maintenance Results * CT Abdomen Pelvis W Contrast (05/13/2018 12:00 AM EXTRUSION PRESS SUPERVISOR) Anatomical Region Laterality Modality Body N/A Computed Tomogra phy 05/13/2018 Impressions 05/13/2018 2:50 AM EXTRUSION PRESS SUPERVISOR ??No acute findings in the abdomen or pelvis. THIS IS AN ELECTRONICALLY VERIFIED FINAL REPORT 05/13/2018 2:47 AM - Electronically signed by Mario Garcia M.D. RW D: ??05/13/2018 2:47 AM T: Report ID: [id number] Reading Location: ??[id number] [EOD] Narrative 05/13/2018 2:50 AM EXTRUSION PRESS SUPERVISOR EXAM DESCRIPTION: ??CT Abd/Pelvis W IV Contrast [...] Mario Garcia M.D. RW T: Report ID: [id number] Reading Location: [place] [address] [EOD] Richardson Kilgore NP IMG CT PROCEDURES Final R esult from Last 3 Months or Most Recently Relevant to Health Maintenance Insurance [facility] OTHER Address: [address] [place] [address] [facility] [employer] MEDICARE SOLUTIONS Care Teams Scalp Treatment Specialist Relationship Specialty Start Date End Date Vangie Valentine MD [address] [place] [address] PCP - General Internal Medicine 06/11/19 No, Physician 05/18/18
--- OUTSIDE RECORDS SUMMARY | 2024-06-26 12:15 | XMS_ITS | Clinical Summary ---
Author Organization [facility] Address [address] [place] [address] Care Team Providers Care Pool Coordinator Name Role Phone Vangie Valentine MD Primary Care Provider [phone] Source Comments [facility],non-owned Affiliates and Associated Physician Practices is amultiple site organization consisting of ambulatory clinics and hospital sitesin [place], [place], [place] and [place]. This disclosure is being madepursuant to the Care Everywhere program and may not contain all information available regarding this patient. Last updated 18.[facility] Allergies Active Allergy Reactions Criticality Noted Date [...] Comments Blood Pressure 135/97 06/28/2023 8:35 AM STAKE SETTER Pulse 90 06/28/2023 8:35 AM STAKE SETTER Temperature 36.6 ??C (97.9 ??F) 06/28/2023 8:35 AM CS T Respiratory Rate - - Oxygen Saturation - - Inhaled Oxygen Concentration - - Weight 135.2 kg (298 lb) 06/28/2023 8:35 AM STAKE SETTER Height 182.9 cm (6') 06/28/2023 8:35 AM STAKE SETTER Body Mass Index 40.42 06/28/2023 8:35 AM STAKE SETTER Plan of Treatment Health Maintenance Due Date [...] 08/12/1976 DTAP/TDAP/TD VACCINES (1 - Tdap) 1977 PNEUMOCOCCAL VACCINE 50+ (1 of 1 - PCV) 2008 ZOSTER VACCINE (1 of 2) 2008 Respiratory Syncytial Virus (RSV) Vaccine Pt: or over 60 yrs (1 - Risk 60-74 years 1-dose series) 2018 SCREENING FOR DIABETES 06/28/2023 COVID-19 VACCINE (3 - 2023-2 5 season) 2024 01/16/2022, 08/19/2020 INFLUENZA VACCINE (#1) 2024 3, 07/03/2019, 04/10/2019 DEPRESSION SCREENING 05/28/2024 HEPATITIS B VACCINE Aged Out No longe r eligible based on patient's age to complete this topic HIB VACCINE Aged Out No longer eligi ble based on patient's age to complete this topic HPV VACCINE Aged Out No longer eligi ble based on patient's age to complete this topic MENINGOCOCCAL (Group B) VACCINE Aged Out No longer eligible b ased on patient's age to complete this topic MENINGOCOCCAL VACCINE Aged Out No pradip joe eligible based on patient's age to complete this topic Care Teams Pool Coordinator Relationship Specialty Start Date End Date Vangie Valentine MD [address] [place] [id number] PCP - General 08/18/21
--- OUTSIDE RECORDS SUMMARY | 2024-06-26 12:15 | XMS_ITS | Patient Health Summary ---
Author Organization [facility] Address [address] [place] [address] Care Team Providers Care Chief Meteorologist Name Role Phone Vangie Valentine MD Primary Care Provider [phone] Note from [facility],non-owned Affiliates and Associated Physician Practices is amultiple site organization consisting of ambulatory clinics and hospital sitesin [place], [place], [place] and [place]. This disclosure is being madepursuant to the Care Everywhere program and may not contain all information available regarding this patient. Last updated 18.[facility] Allergies * Lidocaine(Swelling) -Medium Criticality Medications * [...] Comments Blood Pressure 135/97 06/28/2023 8:35 AM OBSTETRICS NURSE PRACTITIONER Pulse 90 06/28/2023 8:35 AM OBSTETRICS NURSE PRACTITIONER Temperature 36.6 ??C (97.9 ??F) 06/28/2023 8:35 AM CS T Respiratory Rate - - Oxygen Saturation - - Inhaled Oxygen Concentration - - Weight 135.2 kg (298 lb) 06/28/2023 8:35 AM OBSTETRICS NURSE PRACTITIONER Height 182.9 cm (6') 06/28/2023 8:35 AM OBSTETRICS NURSE PRACTITIONER Body Mass Index 40.42 06/28/2023 8:35 AM OBSTETRICS NURSE PRACTITIONER Care Teams Chief Meteorologist Relationship Specialty Start Date End Date Vangie Valentine MD [address] [place] [address] PCP - General 08/18/21
--- OUTSIDE RECORDS SUMMARY | 2024-06-26 12:15 | XMS_ITS | Referral Summary ---
Author Organization [facility] Address [address] [place] [address] Care Team Providers Care Academic Intern Name Role Phone Vangie Valentine MD Primary Care Provider Source Comments [facility],non-owned Affiliates and Associated Physician Practices is amultiple site organization consisting of ambulatory clinics and hospital sitesin [place], [place], [place] and [place]. This disclosure is being madepursuant to the Care Everywhere program and may not contain all information available regarding this patient. Last updated 18.[facility] Allergies Active Allergy Reactions Criticality Noted Date [...] Comments Blood Pressure 135/97 06/28/2023 8:35 AM SCIENTIFIC HELPER Pulse 90 06/28/2023 8:35 AM SCIENTIFIC HELPER Temperature 36.6 ??C (97.9 ??F) 06/28/2023 8:35 AM CS T Respiratory Rate - - Oxygen Saturation - - Inhaled Oxygen Concentration - - Weight 135.2 kg (298 lb) 06/28/2023 8:35 AM SCIENTIFIC HELPER Height 182.9 cm (6') 06/28/2023 8:35 AM SCIENTIFIC HELPER Body Mass Index 40.42 06/28/2023 8:35 AM SCIENTIFIC HELPER Plan of Treatment Not on file Care Teams Academic Intern Relationship Specialty Start Date End Date Vangie Valentine MD [address] [place] [phone] PCP - General 08/18/21
--- OUTSIDE RECORDS SUMMARY | 2024-06-26 12:15 | XMS_ITS | Continuity of Care Document ---
Author Organization [facility] Address [address] [place] [address] Phone Care Team Providers Care Pharmaceutical Process Engineer Name Role Phone Inge Ramirez MD Unavailable [...] A VENOUS GLUCOSE METHOD. Test performed at [facility] [place] [id number]: KAILEE SAUCEDA MT([facility]) Panel Description: POC HEMOGLOBIN A1C Final POC HEMOGLOBIN A1C 2008 13:51:0 0 6.1 % OF TOTAL HGB H Final NON-DIABETC <6.0 % Test performed at [facility] [facility] [place] [address]Faylcgis: KAILEE SAUCEDA MT([facility]) Advance Directives Directive Yes / No [...] Diagnoses Date Provider Providers Copied on Encounter [facility], [address], [place], [place], [id number] , tel: [phone] [facility] abnormal glucose (chief complaint) Screening for diabetes mellitus [address], [place], [place], [address] , [place]. tel: [phone] OFFICE OUTPT NEW 30 MIN [facility], [address], [place], [place], [id number] , tel: [phone] [facility] sleep apnea (chief complaint) back pain (chief complaint) breathing problems (chief complaint) stomach bulging (chief complaint) left knee pain (chief complaint) Routine general medical examination at a health care facilityOverweight and obesityInsomnia with sleep apnea, unspecifiedShortness of breathRoutine general medical examination at a health care facility [address], [place], [place], [id number] , [place]. tel:[phone] Family History Family Member Type Diagnosis Age At Onset Mother Problem (finding) asthma Father Problem (finding) asthma Father Problem (finding) hypertension Payers Payer name Insurance type Covered libertarian ID Authoriza tion(s) No Information Social History [...] Status Goal ALT. Due on due Goal AST. Due on due Goal Urinalysis. Due on due Goal Lipid Panel. Due on due Goal PSA. Due on due Goal BMP fasting. Due on due Referral Referred To: [address], [address] Ordered: Referral: [facility]. Radiology. Diagnostic testing. ordered Future Order: [...]
--- OUTSIDE RECORDS SUMMARY | 2024-06-26 12:15 | XMS_ITS | Clinical Summary ---
Author Organization [place] [id number] Address [address] [place] [address] Care Team Providers Care Carry All Driver Name Role Phone No, Physician Unavailable Vangie Valentine MD Primary Care Provider [phone] Allergies Active Allergy Reactions Criticality Noted Date [...] Shortness of breath 05/18/2016 Sleep disorder 05/18/2016 Medical History Medical History Date Comments Diabetes ([facility]) Neuropathy ([facility]) Hypertension A-fib ([facility]) ([facility]) CHF (congestive heart failure) ([facility]) ([facility]) Family History Medical History Relation Name Comments [...] PELVIS W CONTRAST Routine 05/13/2018 12:00 AM CHROMOSOMAL DISORDERS COUNSELOR from Last 3 Months or Most Recently Relevant to Health Maintenance Results * CT Abdomen Pelvis W Contrast (05/13/2018 12:00 AM CHROMOSOMAL DISORDERS COUNSELOR) Anatomical Region Laterality Modality Body N/A Computed Tomogra phy 05/13/2018 Impressions 05/13/2018 2:50 AM CHROMOSOMAL DISORDERS COUNSELOR ??No acute findings in the abdomen or pelvis. THIS IS AN ELECTRONICALLY VERIFIED FINAL REPORT 05/13/2018 2:47 AM - Electronically signed by Mario Garcia M.D. RW D: ??05/13/2018 2:47 AM T: Report ID: [id number] Reading Location: ??[id number] [EOD] Narrative 05/13/2018 2:50 AM CHROMOSOMAL DISORDERS COUNSELOR EXAM DESCRIPTION: ??CT Abd/Pelvis W IV Contrast [...] Mario Garcia M.D. RW T: Report ID: [id number] Reading Location: [place] [address] [EOD] Richardson Kilgore NP IMG CT PROCEDURES Final R esult from Last 3 Months or Most Recently Relevant to Health Maintenance [place] [address] [place] [address] Care Teams Carry All Driver Relationship Specialty Start Date End Date Vangie Valentine MD [address] [place] [address] [address] [place] [address] PCP - General Internal Medicine 06/11/19 No, Physician 05/18/18
--- OUTSIDE RECORDS SUMMARY | 2024-06-26 12:15 | XMS_ITS | Data Portability ---
[facility] Organization [facility] Address [address] [place] [address] Care Team Providers Care Managing Attorney Name Role Phone VANGIE TELLO Primary Care Provider Assessment No assessment recorded. Plan of Treatment Reminders Order Date Submit Date Provider Last Modified By Organization Details Last Modified Time Details Appointments None recorded. Lab noninvasi ve colorecta l cancer DNA + occult blood screening , QL, stool 2022 023 [place] [facility] (Cologuard Orders Only), [address], [address], [place], [address], 4 09:04:56 HbA1c (hemoglob in A1c), blood 2022 023 [facility] In-Office Order, Internal Use Only DO Not Attach Compendium DO Not Attach Compendium, Do Not Delete/merge, [id number] 3 16:28:51 HbA1c (hemoglob in A1c), blood 2022 023 [facility], [address], [address], [place], [address], 3 18:19:31 microalbu min/creat inine, mass ratio, urine 2022 023 [place] [facility], [address], [address], [place], [address], 3 18:23:48 CMP, serum or plasma 2022 023 [place] [facility], [address], [address], [place], [address], 3 18:23:48 lipid panel, serum 2022 023 [place] [facility], [address], [address], [place], [address], 3 18:23:48 noninvasi ve colorecta l cancer DNA + occult blood screening , QL, stool 2022 023 [place] [facility] (Cologuard Orders Only), [address], [address], [place], [address], 3 08:11:02 HbA1c (hemoglob in A1c), blood 2022 023 [facility] In-Office Order, Internal Use Only DO Not Attach Compendium DO Not Attach Compendium, Do Not Delete/merge, [id number] 3 17:30:48 Referral dermatolo gist referral 2022 023 [email or web address] Dermatology, [facility] [place], [address], 3 10:12:31 chiroprac tor referral - Please call patient for appointme nt, thanks! [address] [facility] [place], [facility], [place], [address], 3 09:20:00 dermatolo gist referral [address] Dermatology, [facility] [place], [address], 4 05:08:46 otolaryng ologist referral - Please call patient for appointme nt,thanks ! [address] - Otolaryngology (Ent), [address] [place] [address] , [address], [place], [address], 4 05:08:47 general surgeon referral - General surgery for hernia of abdomen, please call patient for appointme nt,thanks ! [address] General Surgery, [address], [address], [place], [address], 4 05:08:47 cardiolog ist referral - Please call him for appointme nt, thanks! [address] Cardiology, [address] [place], [address], 4 05:08:48 Procedures pulmonary stress test, simple (PROC) 2023 024 [facility] (Cardio Ekg), [address] [place], [address], 4 05:01:49 Surgeries None recorded. Imaging PFT, complete - W/ Post Bronchodi lator Spirometr y 2023 024 [facility] (Cardio Ekg), [address] [place], [address], 4 05:01:48 Medication Orders Viagra 100 mg tablet 2022 023 [facility] #53416, [address], [place], [id number], 3 16:48:21 hydrocodo ne 10 mg-acetam inophen 325 mg tablet 2022 023 [facility] #33465, [address], [place], [id number], 3 17:00:31 pioglitaz one 30 mg tablet 2022 023 [facility] #96326, [address], [place], [id number], 3 17:22:06 simvastat in 40 mg tablet 2022 023 [facility] #00740, [address], [place], [id number], 3 16:48:21 magnesium oxide 400 mg (241.3 mg magnesium ) tablet 2022 023 [facility] #39368, [address], [place], [id number], 3 18:23:47 famotidin e 20 mg tablet 2022 023 [facility] #67853, [address], [place], [id number], 3 18:23:48 mupirocin 2 % topical ointment 2022 023 [facility] #34477, [address], [place], [id number], 3 18:23:46 aspirin 325 mg tablet,de layed release 2022 023 [facility] #63044, [address], [place], [id number], 3 18:23:50 pioglitaz one 45 mg tablet 2022 023 [facility] #06177, [address], [place], [id number], 3 18:23:47 ipratropi um 0.5 mg-albute rol 3 mg (2.5 mg base)/3 mL nebulizat ion soln 2022 023 [facility] #29942, [address], [place], [id number], 3 18:23:50 EpiPen 2-Mik 0.3 mg/0.3 mL injection , auto-inje ctor 2022 023 [facility] #03414, [address], [place], [id number], 3 18:23:49 ibuprofen 800 mg tablet 2022 023 [facility] #20378, [address], [place], [id number], 3 18:23:48 gabapenti n 800 mg tablet 2022 023 [facility] #92290, [address], [place], [id number], 3 18:23:49 Viagra 100 mg tablet 2022 023 [place] [facility], [address] [place] [address], [id number], 4 16:53:25 simvastat in 40 mg tablet 2022 023 [facility] #19029, [address], [place], [id number], 3 18:23:46 carvedilo l 6.25 mg tablet 2022 023 [facility] #03635, [address], [place], [id number], 3 18:23:49 digoxin 250 mcg (0.25 mg) tablet 2022 023 [facility] #21228, [address], [place], [id number], 3 18:23:47 diltiazem CD 240 mg capsule,e xtended release 24 hr 2022 023 [facility] #34429, [address], [place], [id number], 3 18:23:50 furosemid e 40 mg tablet 2022 023 [facility] #67284, [address], [place], [id number], 3 18:23:51 potassium chloride ER 10 mEq tablet,ex tended release 2022 023 [facility] #78223, [address], [place], [id number], 3 18:23:49 magnesium oxide 400 mg (241.3 mg magnesium ) tablet 2022 023 [facility] #88155, [address] [facility] [place], [place], [id number], 17:30:58 pioglitaz one 45 mg tablet 2022 023 [facility] #64422, [address] [facility], [place], [place], [id number], 3 17:31:00 ipratropi um 0.5 mg-albute rol 3 mg (2.5 mg base)/3 mL nebulizat ion soln 2022 [facility] #11540, [address] [facility], [place], [place], [id number], 11/15/202 3 17:30:59 Symbicort 160 mcg-4.5 mcg/actua tion HFA aerosol inhaler 2022 023 [facility] #79592, [address], [place], [place], [id number], 3 17:30:57 ibuprofen 800 mg tablet 2022 023 [facility] #06628, [address], [place], [place], [id number], 3 17:30:59 Viagra 100 mg tablet 2022 023 [facility] #30478, [address], [place], [place], [id number], 3 17:19:55 gabapenti n 800 mg tablet 2022 023 [facility] #20447, [address], [place], [place], [id number], 3 17:30:57 simvastat in 40 mg tablet 2022 023 [facility] #10358, [address], [place], [place], [id number], 3 17:20:01 potassium chloride ER 10 mEq tablet,ex tended release 2022 023 [facility] #04478, [address], [place], [place], [id number], 3 17:19:58 Zithromax Z-Mik 250 mg tablet 2022 023 [facility] #08781, [address], [place], [place], [id number], 3 19:09:21 famotidin e 20 mg tablet 2023 024 [facility] #80548, [address], [place], [place], [id number], 4 17:25:57 magnesium oxide 400 mg (241.3 mg magnesium ) tablet 2023 024 [facility] #20167, [address], [place], [place], [id number], 4 17:25:58 Viagra 100 mg tablet 2023 024 [facility] #61947, [address], [place], [place], [id number], 4 17:25:58 gabapenti n 800 mg tablet 2023 024 [facility] #58859, [address], [place], [place], [id number], 4 17:25:57 aspirin 325 mg tablet,de layed release 2023 024 [facility] #92866, [address], [place], [place], [id number], 4 17:25:58 pioglitaz one 45 mg tablet 2023 024 [facility] #93294, [address], [place], [place], [id number], 4 17:25:58 simvastat in 40 mg tablet 2023 024 [facility] #09058, [address], [place], [place], [id number], 4 17:25:59 albuterol sulfate HFA 90 mcg/actua tion aerosol inhaler 2023 024 [facility] #53103, [address], [place], [place], [id number], 4 17:25:57 ipratropi um 0.5 mg-albute rol 3 mg (2.5 mg base)/3 mL nebulizat ion soln 2023 024 [facility] #89026, [address] , [place], [place], [id number], 4 17:25:56 Symbicort 160 mcg-4.5 mcg/actua tion HFA aerosol inhaler 2023 024 [facility] #73334, [address] , [place], [place], [id number], 4 17:25:59 carvedilo l 6.25 mg tablet 2023 024 [facility] #24534, [address] , [place], [place], [id number], 4 17:25:55 digoxin 250 mcg (0.25 mg) tablet 2023 024 [facility] #58984, [address] , [place], [place], [id number], 4 17:25:55 diltiazem CD 240 mg capsule,e xtended release 24 hr 2023 024 [facility] #18668, [address] , [place], [place], [id number], 4 17:25:57 furosemid e 40 mg tablet 2023 024 [facility] #17276, [address], [place], [place], [id number], 17:25:58 potassium chloride ER 10 mEq tablet,ex tended release 2023 [facility] #45084, [address], [place], [place], [id number], 17:25:56 Patient TargetsNo targets recorded. Patient Instructions Encounter Date Encounter Id Patient Instructions Last Modified By Organization Details Last Modified Time 06/21/2022 [id number] rash: care instructions sieh Not available 06/21/2022 16:28:52 healthy upper back: exercises si Not available 06/21/2022 16:28:52 heart failure: care instructions [facility] Not available 06/21/2022 16:48:06 learning about heart failure sieh Not available 06/21/2022 16:48:06 02/07/2023 [id number] learning about type 2 diabetes sieh Not available 02/07/2023 18:23:32 type 2 diabetes: care instructions [facility] Not available 02/07/2023 18:23:33 A healthy lifestyle: care [facility] Not [facility] 02/07/2023 18:23:33 heart failure: [facility] Not available 02/07/2023 18:23:33 learning about heart failure sieh Not available 02/07/2023 18:23:33 rash: care instructions sieh Not available 02/07/2023 18:23:33 04/11/2023 [id number] influenza (flu) vaccine: care instructions sieh Not available 04/11/2023 18:37:40 hernia: care instructions sieh Not available 04/11/2023 16:59:50 07/25/2023 [id number] hernia: care instructions sieh Not available 07/25/2023 17:41:58 07/26/2023 [id number] sleep apnea: car e instructions ajamous Not [...] [facility], Encounter Date: 06/21/2022 Distributor Of Directories Referral for E ruption Referring Physician: [facility], Encounter Date: 06/21/2022 Distributor Of Directories Referral for E ruption Referring Physician: [facility], Encounter Date: 02/07/2023 General Surgeon Referral for Hernia of anterior abdominal wall General surgery for hernia of abdomen, please call patient for appointment,thanks! Referring Physician: [facility], Encounter Date: 04/11/2023 Laundry Equipment Operator Referral fo r Impacted cerumen in right ear Please call patient for appointment,thanks! Referring Physician: [facility], Encounter Date: 04/11/2023 Cnc Mill Set Up Operator Referral for Ch ronic atrial fibrillation Please call him for appointment, thanks! Referring Physician: [facility], Encounter Date: 07/25/2023 Results Created Date Observation Date Name Description Value Unit Range Abnormal Flag Note LastModifiedBy Organization Detail LastModifiedTime 06/21/19 24 06/21/2023 COLOG UARD cologuard result Cancel led - Order d not applic able Not Available [facility] (Cologuard Orders Only) [address], [place], [address], 06/21/2023 09:04:55 02/09/20 23 02/08/2023 COLOG UARD cologuard result Cancel led - Duplic ate Order not applic able Not Available [facility] (Cologuard Orders Only) [address], [place], [address], 02/08/2023 08:11:02 06/23/19 23 06/23/2022 COLOG UARD cologuard result Cancel led - Duplic ate Order not applic able Not Available [facility] (Cologuard Orders Only) [address], [place], [address], 06/23/2022 11:41:44 05/24/20 22 05/25/2022 DIABE ZORAN PATIE NT EDUCA TION pdf . Not Available [facility] ([facility]) [address] [facility], [place], [address], 05/25/2022 08:14:15 05/24/20 22 05/25/2022 HEMOG LOBIN A1C hemoglobin A1C 5.6 % 4.8-5. 6 Predi abete s: 5.7 - 6.4 Diabe zoran: >6.4 Glyce kai contr ol for adult s with diabe zoran: <7.0 Not Available [facility] ([facility]) [address] [place], [address], 05/25/2022 08:14:15 05/24/20 22 05/25/2022 MAGNE SIUM magnesium 1.8 mg/dL 1.6-2. 3 Not Available [facility] ([facility]) [address] [place], [address], 05/25/2022 08:14:16 05/24/20 22 05/25/2022 HBSAG SCREE N HBsAg screen Negati ve negati ve Not Available [facility] ([facility]) [address] [place], [address], 05/25/2022 08:14:16 05/24/20 22 05/25/2022 HEPAT ITIS B SURF AB QUANT hepatitis B surf Ab quant <3.1 mIU/m L immuni ty>9.9 below low normal Statu s of Immun ity Anti- HBs Level ----- ----- ----- --- ----- ----- ---- Incon siste nt with Immun ity 0.0 - 9.9 Consi stent with Immun ity >9.9 Not Available [facility] ([facility]) [address] [facility], [place], [address], 05/25/2022 08:14:17 05/24/20 22 05/25/2022 PROST ATE-S PECIF IC AG prostate specific [...] t be inter prete d as absol chinik evide nce of the prese nce or absen ce of felipe foreman se. Not Available [facility] ([facility]) [address] [facility], [place], [address], 05/25/2022 08:14:18 05/24/20 22 05/25/2022 HIV AB/P2 4 AG WITH REFLE X HIV Ab/P24 Ag screen Non Reacti ve nonrea ctive HIV Negat javier HIV-1 /HIV- 2 antib odies and HIV-1 p24 antig en were NOT detec dolly. There is no labor atory evide nce of HIV infec tion. Not Available [facility] ([facility]) [address] [facility], [place], [address], 05/25/2022 08:14:18 06/21/19 23 06/21/2022 HbA1c (hemo globi n A1c), blood HbA1c 5.3% Not Available In-Office Order Internal Use Only DO Not Attach Compendium DO Not Attach Compendium, Do Not Delete/merge, [id number] 06/21/2022 16:21:07 04/11/20 23 04/11/2023 HbA1c (hemo globi n A1c), blood HbA1c 5.5% Not Available In-Office Order Internal Use Only DO Not Attach Compendium DO Not Attach Compendium, Do Not Delete/merge, [id number] 04/11/2023 17:30:33 09/26/19 24 09/24/2023 CPAP downl oad* No observ ation record ed. [facility] ([facility]) [address] [place], [address], 10/01/2023 12:01:21 Result Notes None recorded. Problems Name Problem SNOMED Code Status Onset Date Resolution Date Notes Provider Name and Address Organization Details Recorded Time Diabetes mellitus 39603622 Active 2017 Not Available [facility] 4 18:42:20 Chronic congestive heart failure 08379029 Active 2018 Not Available [facility] 4 18:42:20 Upper respiratory infection 90814191 Active 2019 Not Available [facility] 4 18:42:20 Problem Notes None recorded. Procedures Surgical History Date Name Laterality Status Provider Name and Address Organization Details Recorded Time Appendectomy completed Sandro Hernandez [place] - [facility] 12/18/2016 14:58:41 Imaging Results Imaging Date Name Status LastModified by Organiz ation Details LastModified Time 09/24/2023 CPAP download* completed [facility] ([facility]) [address] [place], [address], 10/01/2023 12:01:21 Procedure Notes None recorded. Medical Equipment None Reported. Allergies Allergen ID Allergen Name Allergen Category Reaction Reaction Severity Criticality Documentation Date Start Date Code Code System Note Provider Name and Address Organization Details Recorded Time [id number] glimepiri de medicatio n dizziness Not available Not available 01/16/2022 [id number] RxNorm Not Available Not Available Not Available Medications Name Sig Start Date Stop Date [...] oral route after meals for 5 days. 03/10 completed Not Available Not Available [...] sulfate HFA 90 mcg/actua tion aerosol inhaler active Not Available Not Available Not Available pioglitaz one 30 mg tablet TAKE [...] t Available Vitals Date Recorded Body height Provider Name an d Address Organization Details Last Updated DateTime 06/21/2022 182.88 cm Anya Galvez [place] - [facility] 06/21/2022 15:41:18 Date Recorded Body mass index (BMI) Body weight Provider Name and Address Organization Details Last Updated DateTime 06/21/2022 40.4 kg/m2 330773.53 g Anyadarío Kraft [facility] 06/21/2022 15:46:17 Date Recorded Oxygen saturation Oxygen saturation in Arterial blood by Pulse oximetry Provider Name and Address Organization Details Last Updated DateTime 06/21/2022 93 % 93 % Anya Kraft [facility] 06/21/2022 15:57:38 Date Recorded Heart rate Provider Name an d Address Organization Details Last Updated DateTime 06/21/2022 95 /min Anya العلي [facility] 06/21/2022 15:57:40 Date Recorded Body height Provider Name an d Address Organization Details Last Updated DateTime 02/07/2023 182.88 cm Taya Bryson [facility] 02/07/2023 17:25:12 Date Recorded Body mass index (BMI) Body weight Provider Name and Address Organization Details Last Updated DateTime 02/07/2023 38.7 kg/m2 325095.83 g Taya Bryson [facility] 17:25:24 Date Recorded Heart rate Provider Name an d Address Organization Details Last Updated DateTime 02/07/2023 130 /min Taya Bryson [facility] 02/07/2023 17:27:52 Date Recorded Oxygen saturation Oxygen saturation in Arterial blood by Pulse oximetry Provider Name and Address Organization Details Last Updated DateTime 02/07/2023 98 % 98 % Taya Bryson [facility] 02/07 17:27:58 Date Recorded Body height Provider Name an d Address Organization Details Last Updated DateTime 04/11/2023 182.88 cm Taya Bryson [facility] 04/11/2023 16:23:29 Date Recorded Body mass index (BMI) Provider Name and Address Organization Details Last Updated DateTime 04/11/2023 40.1 kg/m2 Taya Bryson [facility] 04/11/2023 16:24:00 Date Recorded Body weight Provider Name an d Address Organization Details Last Updated DateTime 04/11/2023 640984.34 g Taya Bryson [facility] 04/11/2023 16:24:01 Date Recorded Heart rate Provider Name an d Address Organization Details Last Updated DateTime 04/11/2023 93 /min Taya Bryson MA [facility] 04/11/2023 16:25:42 Date Recorded Oxygen saturation Oxygen saturation in Arterial blood by Pulse oximetry Provider Name and Address Organization Details Last Updated DateTime 04/11/2023 95 % 95 % Taya Bryson [place] [facility] 04/11 16:25:44 Date Recorded Body height Provider Name an d Address Organization Details Last Updated DateTime 07/25/2023 182.88 cm Taya ROSALINDA Bryson [facility] 07/25/2023 16:54:39 Date Recorded Body mass index (BMI) Body weight Provider Name and Address Organization Details Last Updated DateTime 07/25/2023 39.1 kg/m2 668361.6 g Taya Bryson [place] 16:55:48 Date Recorded Heart rate Provider Name an d Address Organization Details Last Updated DateTime 07/25/2023 91 /min Taya Bryson [place] [facility] 07/25/2023 16:57:24 Date Recorded Oxygen saturation Oxygen saturation in Arterial blood by Pulse oximetry Provider Name and Address Organization Details Last Updated DateTime 07/25/2023 95 % 95 % Taya Bryson [place] 07/25 16:57:30 Date Recorded Body height Provider Name an d Address Organization Details Last Updated DateTime 07/26/2023 182.88 cm Eufemia Cali LPN [place] - [place] 11:55:19 Date Recorded Body mass index (BMI) Body weight Provider Name and Address Organization Details Last Updated DateTime 07/26/2023 39.2 kg/m2 233658.19 g Eufemia Cali LPN [place] [facility] 07/26/2023 11:57:21 Date Recorded Body temperature Provider Name a nd Address Organization Details Last Updated DateTime 07/26/2023 98 [degF] Eufemia Cali LPN [place] [facility] 07/26/2023 11:57:28 Date Recorded Respiratory rate Provider Name a nd Address Organization Details Last Updated DateTime 07/26/2023 18 /min Eufemia Cali LPN [place] [facility] 07/26/2023 11:57:30 Date Recorded Oxygen saturation Oxygen saturation in Arterial blood by Pulse oximetry Provider Name and Address Organization Details Last Updated DateTime 07/26/2023 96 % 96 % Eufemia Cali LPN [facility] 07/26/2023 11:57:46 Date Recorded Heart rate Provider Name an d Address Organization Details Last Updated DateTime 07/26/2023 88 /min Eufemia Cali LPN [facility] 11:58:06 Date Recorded Systolic blood pressure Diastolic blood pressure Provider Name and Address Organization Details Last Updated DateTime 06/21/2022 126 mm[Hg] 80 mm[Hg] Anya Kraft MA [facility] 06/21/2022 15:57:27 Date Recorded Systolic blood pressure Diastolic blood pressure Provider Name and Address Organization Details Last Updated DateTime 02/07/2023 143 mm[Hg] 77 mm[Hg] Taya Bryson MA [facility] 01/26 17:27:13 Date Recorded Systolic blood pressure Diastolic blood pressure Provider Name and Address Organization Details Last Updated DateTime 04/11/2023 142 mm[Hg] 86 mm[Hg] Taya Bryson MA [facility] 03/28 16:26:09 Date Recorded Systolic blood pressure Diastolic blood pressure Provider Name and Address Organization Details Last Updated DateTime 07/25/2023 142 mm[Hg] 80 mm[Hg] Taya Bryson MA [facility] 06/29 16:57:44 Date Recorded Systolic blood pressure Diastolic blood pressure Provider Name and Address Organization Details Last Updated DateTime 07/26/2023 124 mm[Hg] 78 mm[Hg] Eufemia Cali LPN [facility] 07/26/2023 11:57:42 Social History Question Answer Notes LastModified by Organizat ion Details LastModified Time Tobacco Smoking Status Never [facility]2016 15:01:06 Do You Have An Advance [...] Or The Highest Degree You Have Received? 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 No Information not available 11/03/2020 Do You Have A Medical Power Of Mother Tester? No Information not available 07/26/2023 What Was [...] Anxious, Or Unable To Sleep At Night)? [id number] Information not available 04/11/2023 Do You Use [...] Joint, or Bone Problems Y Heart Attack ([place]) Y High Blood Pressure Y Kidney or Bladder Problems Y Asthma Y High Cholesterol Y Immunizations Vaccine Type Date Status Note Provider Nam e and Address Organization Details Recorded Time COVID-19, mRNA, LNP-S, PF, 30 mcg/0.3 mL dose 1 completed Not Available [facility] 07/02/2023 18:42:20 SARS-COV-2 (COVID-19) vaccine, UNSPECIFIED 1 completed Not Available [facility] 07/02/2023 18:42:20 Influenza, split virus, quadrivalent, preservative 9 completed Not Available [facility] 06/14/2019 02:38:45 Influenza, split virus, quadrivalent, preservative 0 completed Vj Atkins LPN null, [place] - [facility] 07/03/2019 11:52:46 COVID-19, mRNA, LNP-S, PF, 30 mcg/0.3 mL dose, deep-sucrose 2 completed Holly Peter MA null, [place] - [facility] 01/16/2022 15:46:41 Influenza, split virus, quadrivalent, PF 3 completed Vangie Tello MD Attn: Accounting,[address] [place], [address], [facility] - [facility] 04/11/2023 16:53:09 tetanus toxoid, unspecified formulation 7 completed Not Available [facility] 07/02/2023 18:42:20 Past Encounters Encounter ID Performer Location Encounter Start Date Encounter Closed Date Diagnosis/Indication Diagnosis SNOMED-CT Code Diagnosis ICD10 Code Diagnosis Note [id number] Vangie Tello MD [facility] (Adult Med) [address] [place] [phone] 0 12/18/2016 14:44:41 12/18/2016 16:45:09 Type 2 diabetes mellitus 42568488 E11.40 He can not tolerate the metformin which cause his stomach to be uncomforta ble, diarrhea and cramping. Diabetic p eripheral neuropathy 895676263 E11.40 Body mass index 40+ - severely obese 956810168 Z68.42 Diabetic diet, exercise and lose weight.kannan mcdowell to try wellbutrin and naltrexone to lose weight. Chronic ob structive pulmonary disease 87534936 J44.9 History of partial lung collapsed, needs inhaler to breathe. Umbilical hernia 4594983 07 K42.9 Weight loss, will refer to surgeon in the future if his weight goes down. Screening for malignant neoplasm of colon 032666767 Z12.11 He refuses. Screening for malignant neoplasm of prostate 514542789 Z12.5 Coronary atherosclerosis 429243512 I25.83 Under the care of his cardiologi st. [id number] [facility] [address] [place] [phone] 0 09/26/2017 12:08:48 09/26/2017 14:02:45 Diabetes mellitus 19285385 E11.40 Metformin messed his GI , Diarrhea. Chronic co ngestive heart failure 70672407 I50.9 Under the care of his cardiologi . Diabetic p eripheral neuropathy 837411157 E11.40 Exposure t o viral hepatitis 933673772 Z20.5 [id number] Michelle Goodman MD [facility] [address] [place] [phone] 2 06/17/2018 09:49:13 06/18/2018 15:36:46 Pulmonary hypertension 82459092 I27.20 Multifacto rial Dyspnea on exertion 6084 5006 R06.09 Multifacto rial Obstructiv e sleep apnea syndrome 42603073 G47.33 Patient is not on treatment Tolerant non-smoker 8773 9003 Z87.891 Patient has second hand smoking Edema of l ower extremity 329392696 R60.0 Multifacto rial Hypoxemia 203175022 R09. 02 Patient is using O2 at home [id number] Michelle Goodman MD [facility] [address] [place] [address] [phone] 2 07/18/2018 11:25:15 07/18/2018 15:15:05 Obstructive sleep apnea syndrome 02032291 G47.33 Patient is not on treatment. His sleep study is not available to me. Dyspnea on exertion 6084 5006 R06.09 Multifacto rial Restrictiv e lung disease 75488065 J98.4 FEV1 36%, FVC 32%, FEV1/FVC 87%, BD-, TLC 43%, DLCO 47%, will add Combivent respimat to his regimen. I will get CXR on the patient. Tolerant non-smoker 8773 9003 Z87.891 Patient has second hand smoking Edema of l ower extremity 607242968 R60.0 Multifacto rial Hypoxemia 527418336 R09. 02 Patient has 6MWT showed he needs O2 at 2L/M. Will order portable concentrat or. Patient is using O2 at home. I will check D dimer. History of exposure to second hand smoke 792342136 Z77.22 Patient has second hand smoking. Moderate p ersistent asthma 695586007 J45.40 He uses Ventolin but having significan t SOB. [id number] Vangie Tello MD [facility] (Adult Med) [address] [place] [phone] 0 07/22/2018 12:36:17 07/23/2018 10:17:25 Diabetes mellitus 73984451 E11.40 Metformin messed his GI , Diarrhea. Type 2 janusz betes mellitus 87233384 E11.40 He can not tolerate the metformin which cause his stomach to be uncomforta ble, diarrhea and cramping. Secondary peripheral neuropathy 576180 G63 Can not walk since being D/C from ICU for respirator y failure. Asthma 866098881 J45.90 9 Under the care of his transmission specialist . Chronic co ngestive heart failure 96028179 I50.9 Under the care of his cardiologi st. Chronic at rial fibrillation 670143813 I48.2 Under the care of his cardiologi st. Restrictiv e lung disease 20301281 J98.4 Dyslipidem ia due to type 2 diabetes mellitus 7995221681 02 E78.5 Hernia of anterior abdominal wall 405549251 K43.9 Discussed with patient, agreed for the CAT scan. Has claustroph obia, will give one ativan prior to CAT scan. [id number] Vangie Tello MD [facility] (Adult Med) [address] [place] [address] [phone] 0 10/02/2018 15:51:24 10/03/2018 15:11:25 Type 2 diabetes mellitus 49326308 E11.40 He can not tolerate the metformin which cause his stomach to be uncomforta ble, diarrhea and cramping. Diabetic p eripheral neuropathy 120485317 E11.40 Discussed with patient, wanting up grade dose gabapentin . Chronic ob structive pulmonary disease 98288187 J44.9 History of partial lung collapsed, needs inhaler to breathe. Second hand smoker in the past. Tinea corporis 94115138 B35.4 [id number] Michelle Goodman MD [facility] [address] [place] [address] 10/24/2018 11:35:36 10/25/2018 14:37:28 Obstructive sleep apnea syndrome 19011842 G47.33 Patient is not on treatment. AHI 24/hour Periodic l imb movement disorder 929279198 G47.61 On gabapentin - will increase dose to 400mg X3 Dyspnea on exertion 6084 5006 R06.09 Multifacto rial Restrictiv e lung disease 06756850 J98.4 FEV1 36%, FVC 32%, FEV1/FVC 87%, BD-, TLC 43%, DLCO 47%, will add Combivent respimat to his regimen.CX R 07/16IMPRES CASSI:===== Mild groundglas s opacities left lung base could relate to atelectasi s or early pneumonia. Clinical follow-up recommende d. Follow-up to resolution with radiograph in 8 weeks recommende d. - I will get CT chest Tolerant non-smoker 8773 9003 Z87.891 Patient has second hand smoking Edema of l ower extremity 736793374 R60.0 Multifacto rial Hypoxemia 807472082 R09. 02 Patient has 6MWT showed he needs O2 at 2L/M. Will order portable concentrat or. Patient is using O2 at home. I will check D dimer., homocystin e Moderate p ersistent asthma 393207488 J45.40 He uses Ventolin HFA but having significan t SOB. History of exposure to second hand smoke 679011271 Z77.22 Patient has second hand smoking. Diabetic p eripheral neuropathy 824225130 E11.40 On Gabapentin [id number] Vangie Tello MD [facility] (Adult Med) [address] [place] [address] [phone] 0 11/06/2018 15:22:10 11/06/2018 16:58:03 Type 2 diabetes mellitus 68433625 E11.40 He can not tolerate the metformin which cause his stomach to be uncomforta ble, diarrhea and cramping. Diabetic p eripheral neuropathy 434953752 E11.40 Discussed with patient, wanting up grade dose gabapentin . Chronic back pain 279105 002 M54.16 Stable. On gabapentin . Hernia of anterior abdominal wall 993922643 K43.9 Discussed with patient, agreed for the CAT scan. Has claustroph obia, will give one ativan prior to CAT scan. Chronic ob structive pulmonary disease 91287670 J44.9 History of partial lung collapsed, needs inhaler to breathe. Second hand smoker in the past. Wanting Alph-1 antitrypsi n screening. Diabetes mellitus 177109 09 E11.40 Metformin messed his GI , Diarrhea. Dyslipidem ia due to type 2 diabetes mellitus 1187427064 02 E78.5 Disorder of skin 2943054 [address], refill the cream. [id number] SUMEET MCKEON MD [facility] ts [address] [place] [address] 11/22/2018 11:15:02 11/25/2018 11:43:00 Hernia of anterior abdominal wall 202588349 K43.9 58M morbidly obese with anterior abdominal wall hernia. The optimal surgery wound include bariatrics and hernia repair. The patient has multiple comorbidit ies including COPD, on home oxygen, CHF and DM. I will refer him to a tertiary facility that can manage this complicate d patient. Morbid obesity 689581119 E66.01 [id number] Vangie Tello MD [facility] (Adult Med) [address] [place] [address] [phone] 0 12/04/2018 11:42:11 12/04/2018 12:36:51 Nephropathy screening 692514130 Z13.89 Discussed with patient that his urine stik test is clean, but will send for culture as back up. Acute low back pain 9088 00552 M54.5 Discussed with patient, will try diclofenac ointment and PRN for ibuprofen. [id number] Melissa Myrick [facility] ts [address] [place] [address] 03/06/2019 10:38:24 03/06/2019 16:02:09 Obstructive sleep apnea syndrome 87660883 G47.33 Patient is not on treatment. AHI 24/hour, patient required BIPAp 18/8 with O2 4L/m into nasal mask. I will order Hypoxemia 265209164 R09. 02 Patient has 6MWT showed he needs O2 at 2L/M. Will order portable concentrat or. Patient is using O2 at home. I will check D dimer., homocystin e Periodic l imb movement disorder 662044905 G47.61 On gabapentin - will increase dose to 400mg X3 Dyspnea on exertion 6084 5006 R06.09 Multifacto rial Restrictiv e lung disease 18179436 J98.4 FEV1 36%, FVC 32%, FEV1/FVC 87%, BD-, TLC 43%, DLCO 47%, will add Combivent respimat to his regimen.CX R 07/16IMPRES CASSI:===== Mild groundglas s opacities left lung base could relate to atelectasi s or early pneumonia. Clinical follow-up recommende d.Follow-u p to resolution with radiograph in 8 weeks recommende d. - I will get CT chest Ct chestIMPRE SSION: . Mild subsegment al atelectasi s in the lung bases. No suspicious lesion. 2. Cardiomega ly. Mild coronary calcificat ions and atheroscle rosis. 3. Mild to moderate degenerati ve changes throughout the visualized spine. 4. 2 nonobstruc ting calculi left kidney measuring 9 mm and 3 mm. No hydronephr osis or obstructin g calculus. 5. Supraumbil ical midline ventral abdominal wall hernia. This has a base of 4. 2 cm and sac diameter of 10.6 cm. This contains mesenteric fat and a small portion of the transverse colon. No evidence of ischemia or obstructio n, but close clinical follow-up recommende d since there is a narrow neck. Tolerant non-smoker 8773 9003 Z87.891 Patient has second hand smoking Moderate p ersistent asthma 555386530 J45.40 He uses Ventolin HFA but having significan t SOB., I will add incruse ellipta to his regimen Diabetic p eripheral neuropathy 872259234 E11.40 On Gabapentin History of exposure to second hand smoke 667822186 Z77.22 Patient has second hand smoking. Dizziness 657150151 R42 I will check DDimer and CTA of chest [id number] Vangie Tello MD [facility] (Adult Med) [address] [place] [address] [phone] 0 03/10/2019 16:51:00 03/10/2019 18:16:54 Dyspnea on exertion 83754911 R06.09 hypoxemia. oximetry is only 75%, he refuses to go to ER. 2018. Pulmonary CAT failed to show large vessel embolism. On aspirin. Generalize d abdominal pain 259380124 R10.84 Worse pain of abdomen, previous CAT of abdomen in october 2018 reported trans colon intrarpped but no bowel obstructio n. He refuses to go to ER.. [id number] MD Celeste Michaud (Adult Med) [address] [place] [address] 65640-319 0 04/10/2019 15:28:55 04/11/2019 12:28:48 Chronic low back pain 465006976 M54.5 He insists to have nephrology referral; Chronic di sease of skin 328505531 L98.9 He insists to see a dermatolog ist. Administra tion of influenza vaccine 43715413 Z23 He tolerated short well. [id number] MD Celeste Michaud (Adult Med) [address] [place] [address] [phone] 0 05/06/2019 16:29:56 05/07/2019 10:17:38 Acute respiratory infections 033383409 J22 [id number] Vangie Tello MD [facility] (Adult Med) [address] [place] [address] [phone] 0 06/25/2019 15:47:35 06/25/2019 17:14:35 Chronic low back pain 994253081 M54.5 He insists to have nephrology referral; but spinal vertebrae disorder, will proced CAT of lumbar spine. Hearing disorder 6675464 05 H91.90 Pt prefers to go to [facility], Cramping pain 780305105 R52 Discussed with patient. Diabetic p eripheral neuropathy 362742626 E11.40 Discussed with patient, wanting up grade dose gabapentin . Administra tion of influenza vaccine 37237748 Z23 He tolerated short well. [id number] MD Celeste Michaud (Adult Med) [address] [place] [address] 96910-687 0 07/16/2019 16:43:15 07/16/2019 17:46:11 Cellulitis 759868730 L03.90 Swelling gum. [id number] MD Celeste Woodward (Adult Med) [address] [place] [address] [phone] 0 08/26/2019 11:47:39 08/26/2019 17:12:55 Upper respiratory infection 28553429 J06.9 [id number] Michelle Goodman MD [facility] [address] [place] [address] 08/28/2019 09:17:52 09/15/2019 13:49:10 Obstructive sleep apnea syndrome 19179777 G47.33 Patient is on treatment. AHI 24/hour, patient required BIPAp 18/8 with O2 4L/m into nasal mask. I will adjust his pressure to 20/10 with 4L/M of O2 Hypoxemia 375514584 R09. 02 Patient has 6MWT showed he needs O2 at 2L/M. Will order portable concentrat or. Patient is using O2 at home. I will check D dimer., homocystin e Periodic l imb movement disorder 385398433 G47.61 On gabapentin - will increase dose to 400mg X3 Dyspnea on exertion 6084 5006 R06.09 Multifacto rial Restrictiv e lung disease 47256470 J98.4 FEV1 36%, FVC 32%, FEV1/FVC 87%, BD-, TLC 43%, DLCO 47%, will add Combivent respimat to his regimen.CX R 07/16IMPRES CASSI:===== Mild groundglas s opacities left lung base could relate to atelectasi s or early pneumonia. Clinical follow-up recommende d.Follow-u p to resolution with radiograph in 8 weeks recommende d. - I will get CT chest Ct chestIMPRE SSION: . Mild subsegment al atelectasi s in the lung bases. No suspicious lesion. 2. Cardiomega ly. Mild coronary calcificat ions and atheroscle rosis. 3. Mild to moderate degenerati ve changes throughout the visualized spine. 4. 2 nonobstruc ting calculi left kidney measuring 9 mm and 3 mm. No hydronephr osis or obstructin g calculus. 5. Supraumbil ical midline ventral abdominal wall hernia. This has a base of 4. 2 cm and sac diameter of 10.6 cm. This contains mesenteric fat and a small portion of the transverse colon. No evidence of ischemia or obstructio n, but close clinical follow-up recommende d since there is a narrow neck. Tolerant non-smoker 8773 9003 Z87.891 Patient has second hand smoking Moderate p ersistent asthma 004946307 J45.40 He uses Ventolin HFA but having significan t SOB., I will add incruse ellipta to his regimen Diabetic p eripheral neuropathy 949025360 E11.40 On Gabapentin History of exposure to second hand smoke 419761587 Z77.22 Patient has second hand smoking. Dizziness 682051008 R42 I will check DDimer and CTA of chest [id number] MD Celeste Michaud (Adult Med) [address] [place] [address] [phone] 0 10/06/2019 13:55:45 10/07/2019 14:16:55 Chronic congestive heart failure 27938334 I50.9 Under the care of his cardiologi st. Diabetes mellitus 812618 09 E11.40 Metformin, regular formula, messed his GI , Diarrhea. Diabetic p eripheral neuropathy 771820034 E11.40 Discussed with patient, wanting up grade dose gabapentin . Dyslipidem ia due to type 2 diabetes mellitus 3251813024 02 E78.5 On low saturated fat diet, Moderate p ersistent asthma 147648633 J45.40 Has been stabilized with medication s. Tinea corporis 77799110 B35.4 Well maintained with powder. Degenerati ve joint disease involving multiple joints 933008655 M15.9 Wanting to refill the medication s. [id number] [facility] [address] [place] [address] 90793-917 0 10/13/2019 09:37:54 10/14/2019 13:40:05 Hypokalemia 42343553 E87.6 Discussed with patient, will have blood potassium tested and refills of his potassium today. [id number] MD Celeste Michaud (Adult Med) [address] [place] [address] [phone] 0 10/06/2020 12:32:53 10/07/2020 15:31:55 Chronic congestive heart failure 05080515 I50.9 Under the care of his cardiologi st. Diabetes mellitus 190222 E11.40 Metformin, regular formula, messed his GI , Diarrhea. Chronic ob structive pulmonary disease 23215675 J44.9 History of partial lung collapsed, needs inhaler to breathe. Second hand smoker in the past. Wanting Alph-1 antitryp sin screening. [id number] Vangie Tello MD [facility] (Adult Med) [address] [place] [address] 59280-828 0 10/11/2020 09:44:00 10/12/2020 10:42:19 Chronic congestive heart failure 65981049 I50.9 Under the care of his cardiologi st. Diabetes mellitus 472823 E11.40 Metformin, regular formula, messed his GI , Diarrhea. Chronic ob structive pulmonary disease 72212243 J44.9 History of partial lung collapsed, needs inhaler to breathe. Second hand smoker in the past. Wanting Alph-1 antitryp sin screening. Diabetic p eripheral neuropathy 703053681 E11.40 Discussed with patient, wanting up grade dose gabapentin . Dyslipidem ia due to type 2 diabetes mellitus 4454645405 02 E78.5 On low saturated fat diet, [id number] Vangie Tello MD [facility] (Adult Med) [address] [place] [address] [phone] 0 11/03/2020 12:18:43 11/04/2020 11:30:52 Chronic kidney disease stage 2 343609858 N18.2 Will order U/S of kidney and [facility]. Chronic co ngestive heart failure 28367422 I50.9 Under the care of his cardiologi st. Diabetes mellitus 040854 E11.40 Metformin, regular formula, messed his GI , Diarrhea. Refilled glimepirid e 4 mg 2 pills bid, ordered yesterday. Diabetic p eripheral neuropathy 720338696 E11.40 Discussed with patient, wanting up grade dose gabapentin . [id number] Michelle Goodman MD [facility] [address] [place] [address] 11/04/2020 11:44:29 11/04/2020 13:54:33 Moderate persistent asthma 299135016 J45.40 He uses Ventolin HFA but having significan t SOB., I will continue incruse ellipta and add Symbicort 160/4.5, I will recheck PFTs Restrictiv e lung disease 16654050 J98.4 FEV1 36%, FVC 32%, FEV1/FVC 87%, BD-, TLC 43%, DLCO 47%, will add Combivent respimat to his regimen. CXR 07/16 IMPRESSION :===== Mild groundglas s opacities left lung base could relate to atelectasi s or early pneumonia. Clinical follow-up recommende d. Follow-up to resolution with radiograph in 8 weeks recommende d. - I will get CT chest Ct chest IMPRESSION : 09/2018 1. Mild subsegment al atelectasi s in the lung bases. No suspicious lesion. 2. Cardiomega ly. Mild coronary calcificat ions and atheroscle rosis. 3. Mild to moderate degenerati ve changes throughout the visualized spine. 4. 2 nonobstruc ting calculi left kidney measuring 9 mm and 3 mm. No hydronephr osis or obstructin g calculus. 5. Supraumbil ical midline ventral abdominal wall hernia. This has a base of 4. 2 cm and sac diameter of 10.6 cm. This contains mesenteric fat and a small portion of the transverse colon. No evidence of ischemia or obstructio n, but close clinical follow-up recommende d since there is a narrow neck. Hypoxemia 917515247 R09. 02 Patient has 6MWT showed he needs O2 at 2L/M. Will order portable concentrat or. Patient is using O2 at home. I will check D dimer., homocystin e, I will check 6MWT Obstructiv e sleep apnea syndrome 56467781 G47.33 Patient is on treatment. AHI 24/hour, patient required BIPAp 18/8 with O2 4L/m into nasal mask. I will adjust his pressure to 20/10 with 4L/M of O2. He's feling the pressure is not enough, I will increase to 22/11 and geta download Morbid obesity 064204537 E66.01 Advised about diet and exercise for weight reduction Tolerant non-smoker 4539 9003 Z87.891 Patient has second hand smoking Dyspnea on exertion 6084 5006 R06.09 Multifacto rial Diabetic p eripheral neuropathy 400358094 E11.40 On Gabapentin Periodic l imb movement disorder 774912617 G47.61 On gabapentin - will increase dose to 400mg X3 Dizziness 953863726 R42 DDimer was negative and CTA negative Non-smoker 's second hand smoke syndrome 927724147 J98.4 [id number] Michelle Goodman MD [facility] [address] [place] [address] 11/11/2020 09:41:14 11/12/2020 11:24:45 Chest wall pain 762591438 R07.89 Etiology is unclear, I will check CTA Moderate p ersistent asthma 993332008 J45.40 He uses Ventolin HFA but having significan t SOB., I will continue incruse ellipta and add Symbicort 160/4.5, I will recheck PFTs Tolerant non-smoker 8773 9003 Z87.891 Patient has second hand smoking Obstructiv e sleep apnea syndrome 90788712 G47.33 Patient is on treatment. AHI 24/hour, patient required BIPAp 18/8 with O2 4L/m into nasal mask. I will adjust his pressure to 20/10 with 4L/M of O2. He's feling the pressure is not enough, I will increase to 22/11 and get a download and give the patient supplies Restrictiv e lung disease 08700707 J98.4 FEV1 36%, FVC 32%, FEV1/FVC 87%, BD-, TLC 43%, DLCO 47%, will add Combivent respimat to his regimen. CXR 07/16 IMPRESSION :===== Mild groundglas s opacities left lung base could relate to atelectasi s or early pneumonia. Clinical follow-up recommende d. Follow-up to resolution with radiograph in 8 weeks recommende d. - I will get CT chest Ct chest IMPRESSION : 09/2018 1. Mild subsegment al atelectasi s in the lung bases. No suspicious lesion. 2. Cardiomega ly. Mild coronary calcificat ions and atheroscle rosis. 3. Mild to moderate degenerati ve changes throughout the visualized spine. 4. 2 nonobstruc ting calculi left kidney measuring 9 mm and 3 mm. No hydronephr osis or obstructin g calculus. 5. Supraumbil ical midline ventral abdominal wall hernia. This has a base of 4. 2 cm and sac diameter of 10.6 cm. This contains mesenteric fat and a small portion of the transverse colon. No evidence of ischemia or obstructio n, but close clinical follow-up recommende d since there is a narrow neck. Morbid obesity 211289112 E66.01 Advised about diet and exercise for weight reduction Hypoxemia 366940032 R09. 02 Patient has 6MWT showed he needs O2 at 2L/M. Will order portable concentrat or. Patient is using O2 at home. I will check D dimer., homocystin e, I will check 6MWT Dyspnea on exertion 6084 5006 R06.09 Multifacto rial Diabetic p eripheral neuropathy 069789794 E11.40 On Gabapentin Periodic l imb movement disorder 935112729 G47.61 On gabapentin - will increase dose to 400mg X3 Dizziness 006381380 R42 DDimer was negative and CTA negative [id number] MD Celeste Michaud (Adult Med) [address] [place] [address] 65820-483 0 06/03/2021 15:42:21 06/06/2021 13:11:47 Acute laryngitis 0908763 J04.0 Likes z pack. he said. Erectile dysfunction 860 960825 F52.21 Wants to try viagra. Advised him to consult his cardiologi st as well. He agreed. Pityriasis versicolor 56 919355 B36.0 Will try topical cream and dermatolog y referral. [id number] [facility] [address] [place] [address] 40287-582 0 07/07/2021 11:40:36 07/25/2021 12:36:26 Chronic congestive heart failure 79981497 I50.9 Under the care of his cardiologi st. Diabetes mellitus 541730 09 E11.40 Metformin, regular formula, messed his GI , Diarrhea. Refilled glimepirid e 4 mg 2 pills bid, ordered yesterday. Dyslipidem ia due to type 2 diabetes mellitus 3184703726 02 E78.5 On low saturated fat diet, Erectile dysfunction 860 184870 F52.21 Wants to try viagra. Advised him to consult his cardiologi st as well. He agreed., he siad his cardiologi st agreed, now he wants up dose. Pityriasis versicolor 56 838572 B36.0 Will try topical cream and dermatolog y referral. ! % terbinafin e not working he said , he used to try kanolotion Diabetic p eripheral neuropathy 752280885 E11.40 Discussed with patient, wanting up grade dose gabapentin . Type 2 janusz betes mellitus 83540850 E11.40 He can not tolerate the metformin which cause his stomach to be uncomforta ble, diarrhea and cramping. Chronic ob structive pulmonary disease 54611070 J44.9 History of partial lung collapsed, needs inhaler to breathe. Second hand smoker in the past. Wanting Alph-1 antitryp sin screening. Degenerati ve joint disease involving multiple joints 751265231 M15.9 Wanting to refill the medication s. Acid reflux 693875347 K2 1.9 Stable. Screening for malignant neoplasm of colon 297142925 Z12.11 He wants stool test. [id number] Vangie Tello MD [facility] (Adult Med) [address] [place] [address] 08/05/2021 12:24:37 08/08/2021 09:17:47 Secondary erectile dysfunction 214274450 N52.39 He wants change viagra from 10/month 100 mg to 50 mg with 20 pills/georges h. Chronic co ngestive heart failure 54369190 I50.9 Under the care of his cardiologi st. Diabetes mellitus 608616 09 E11.40 Metformin, regular formula, messed his GI , Diarrhea. Refilled glimepirid e 4 mg 2 pills bid, ordered yesterday. Acid reflux 896497537 K2 1.9 Stable. Chronic ob structive pulmonary disease 15417524 J44.9 History of partial lung collapsed, needs inhaler to breathe. Second hand smoker in the past. Wanting Alph-1 antitryp sin screening. He agreed to D/C symbicort which has steroid . 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 Diabetic p eripheral neuropathy 571967474 E11.40 Discussed with patient, wanting up grade dose gabapentin . Type 2 janusz betes mellitus 66628024 E11.40 He can not tolerate the metformin which cause his stomach to be uncomforta ble, diarrhea and cramping. Dyslipidem ia due to type 2 diabetes mellitus 6523966862 E78.5 On low saturated fat diet, Degenerati ve joint disease involving multiple joints 021781418 M15.9 Wanting to refill the medication s. [id number] Vangie Tello MD [facility] (Adult Med) [address] [place] [phone] 08/31/2021 12:02:59 09/01/2021 12:34:40 Chronic congestive heart failure 72641596 I50.9 Under the care of his cardiologi st., On klpems1qxm e, needs potassium supplement . Tinea corporis 56284946 B35.4 Well maintained with powder. Erectile dysfunction 860 430891 F52.21 Wants to try viagra. Advised him to consult his cardiologi st as well. He agreed., he siad his cardiologi st agreed, now he wants up dose. Secondary erectile dysfunction 482004411 N52.39 He wants change viagra from 10/month 100 mg to 50 mg with 20 pills/georges h. Diabetes mellitus 457767 09 E11.40 Metformin, regular formula, messed his GI , Diarrhea. Refilled glimepirid e 4 mg 2 pills bid, ordered yesterday. Acid reflux 766736520 K2 1.9 Stable. Chronic ob structive pulmonary disease 64771672 J44.9 History of partial lung collapsed, needs inhaler to breathe. Second hand smoker in the past. Wanting Alph-1 antitryp sin screening. He agreed to D/C symbicort which has steroid . 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 Diabetic p eripheral neuropathy 237771091 E11.40 Discussed with patient, wanting up grade dose gabapentin . Type 2 janusz betes mellitus 06750119 E11.40 He can not tolerate the metformin which cause his stomach to be uncomforta ble, diarrhea and cramping. Dyslipidem ia due to type 2 diabetes mellitus 5017812428 E78.5 On low saturated fat diet, Degenerati ve joint disease involving multiple joints 518905454 M15.9 Wanting to refill the medication s. Pityriasis versicolor 56 177680 B36.0 Will try topical cream and dermatolog y referral. ! % terbinafin e not working he said , he used to try kanolotion , Still waiting the appointmen t of dermatolog y at [facility], he wants to find sooner and close dermatolog ist instead, advised to check with his insurance the lists of dermatolog ist [place], then will try to refer, he agreed. 08-31-2021 . [id number] Vangie Tello MD [facility] (Adult Med) [address] [place] [address] 10/07/2021 12:33:21 10/11/2021 07:41:46 Erectile dysfunction 442608068 F52.21 Wants to try viagra. Advised him to consult his cardiologi st as well. He agreed., he siad his cardiologi st agreed, now he wants up dose. Infection of skin and/or subcutaneous tissue 78002738 L08.9 He wants cream and bactrim for his skin over count of bacteria since his young . Chronic co ngestive heart failure 23862099 I50.9 Under the care of his cardiologi st., On mdvtwo5doo e, needs potassium supplement . Diabetes mellitus 545329 09 E11.40 Metformin, regular formula, messed his GI , Diarrhea. Refilled glimepirid e 4 mg 2 pills bid, ordered yesterday. Chronic ob structive pulmonary disease 76556878 J44.9 History of partial lung collapsed, needs inhaler to breathe. Second hand smoker in the past. Wanting Alph-1 antitryp sin screening. He agreed to D/C symbicort which has steroid . 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 Degenerati ve joint disease involving multiple joints 627651793 M15.9 Wanting to refill the medication s. Acid reflux 673229336 K2 1.9 Stable. Diabetic p eripheral neuropathy 295662551 E11.40 Discussed with patient, wanting up grade dose gabapentin . Dyslipidem ia due to type 2 diabetes mellitus 5078122262 02 E78.5 On low saturated fat diet, [id number] ROSALINDA Layton (Peds) [address] [place] [phone] 01/16/2022 15:33:00 01/17/2022 12:11:00 Administration of SARS-CoV-2 mRNA vaccine 5398249634 Z23 [id number] MD Celeste Michaud (Adult Med) [address] [place] [phone] 01/16/2022 16:03:23 01/19/2022 10:53:06 Screening for malignant neoplasm of prostate 890784298 Z12.5 He agreed. Screening for malignant neoplasm of colon 037404694 Z12.11 He wants stool test. He has not turned in the test yet he said, Type 2 janusz betes mellitus 92904043 E11.40 He can not tolerate the metformin which cause his stomach to be uncomforta ble, diarrhea and cramping. HIV screening 729619133 Z11.4 He agreed to be tested. Cramping pain 782635473 R52 Discussed with patient. On diuretic , might have low magnesium , will check. Exposure t o Hepatitis B virus 153656625 Z20.5 Will check the hepatitis B. Secondary erectile dysfunction 519938712 N52.39 He wants change viagra from 10/month 100 mg to 50 mg with 20 pills/georges h. Obesity 040756849 E66.9 Advised to watch his diabetic diet, exercise and lose some weight, 12-27-2021. [id number] MD Celeste Michaud (Adult Med) [address] [place] [phone] 06/21/2022 15:38:22 06/22/2022 15:47:33 Thoracic back pain 567430317 M54.6 He wants chiropract or referral. He will see his cardiologi st on the end of this month. Wants some tylenol with codeine or hydrocodon . Eruption 178616103 R21 Skin keeps break out, cream not helping. wants dermatolog y referral. Diabetes mellitus 647194 09 E11.40 Metformin, regular formula, messed his GI , Diarrhea. Refilled glimepirid e 4 mg 2 pills bid, ordered yesterday. Screening for malignant neoplasm of colon 910765576 Z12.11 He wants stool test. He has not turned in the test yet he said, it , will reorder. Erectile dysfunction 860 027842 F52.21 Wants to try viagra. Advised him to consult his cardiologi st as well. He agreed., he siad his cardiologi st agreed, now he wants up dose. Dyslipidem ia due to type 2 diabetes mellitus 1341685677 02 E78.5 On low saturated fat diet, Congestive heart failure 50838142 I50.9 Under the care of his cardiologi st. [id number] Vangie Tello MD [facility] (Adult Med) [address] [place] [phone] 02/07/2023 17:11:12 02/09/2023 15:31:07 Type 2 diabetes mellitus 77983174 E11.40 He can not tolerate the metformin which cause his stomach to be uncomforta ble, diarrhea and cramping. Went thru med lists. needs potassium and magnesium, and up grate dose of pioglitazo ne . Chronic co ngestive heart failure 04531436 I50.9 Under the care of his cardiologi st., On kuiteh9aef e, needs potassium supplement . Diabetic p eripheral neuropathy 184772356 E11.40 Discussed with patient, wanting up grade dose gabapentin . Eruption 142513318 R21 Skin keeps break out, cream not helping. wants dermatolog y referral. Diabetes mellitus 451493 09 E11.40 Metformin, regular formula, messed his GI , Diarrhea. Refilled glimepirid e 4 mg 2 pills bid, ordered yesterday. Wants increase dose of pioglitazo ne. Screening for malignant neoplasm of colon 108052579 Z12.11 He wants stool test. He has not turned in the test yet he said, it , will reorder. He had it sitting his home for months. Re instructed to proceed the test. he said that he will do it. today [id number]. Erectile dysfunction 860 092382 F52.21 Wants to try viagra. Advised him to consult his cardiologi st as well. He agreed., he siad his cardiologi st agreed, now he wants up dose. Dyslipidem ia due to type 2 diabetes mellitus 9586356821 02 E78.5 On low saturated fat diet, Congestive heart failure 75327641 I50.9 Under the care of his cardiologi st. Acid reflux 490140317 K2 1.9 Stable. Chronic ob structive pulmonary disease 27109888 J44.9 History of partial lung collapsed, needs inhaler to breathe. Second hand smoker in the past. Wanting Alph-1 antitryp sin screening. He agreed to D/C symbicort which has steroid . 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 Cramping pain 580945533 R52 Discussed with patient. On diuretic , might have low magnesium , will check. Infection of skin and/or subcutaneous tissue 41025552 L08.9 He wants cream and bactrim for his skin over count of bacteria since his young . Allergic r eaction to bee sting 948714648 T63.444A Will refill epinephrin e injection. Chronic th oracic back pain 2075060493 22286 M54.6 Med refills. Obesity 219298265 E66.9 Advised to watch his diabetic diet, exercise and lose some weight, 12-27-2021. BMI is 38.7 as 02-07-23. [id number] Vangie Tello MD [facility] (Adult Med) [address] [place] [address] 04/11/2023 16:11:30 04/12/2023 15:46:47 Administration of influenza vaccine 25780866 Z23 He tolerated short well. Acute resp iratory infections 016903396 J22 congested sinus and throat. wants z pk Impacted c erumen in right ear 9067043344 198414 H61.21 Wants [facility] to clean it. Hernia of anterior abdominal wall 548964608 K43.9 Discussed with patient, agreed for the CAT scan. Has claustroph obia, will give one ativan prior to CAT scan.He wants U to take care of . Diabetes mellitus 003449 09 E11.40 Metformin, regular formula, messed his GI , Diarrhea. Refilled glimepirid e 4 mg 2 pills bid, ordered yesterday. Wants increase dose of pioglitazo ne. Chronic co ngestive heart failure 36499548 I50.9 Under the care of his cardiologi st., On kudpiy7ebh e, needs potassium supplement . Dyslipidem ia due to type 2 diabetes mellitus 4851221797 02 E78.5 On low saturated fat diet, Erectile dysfunction 860 697045 F52.21 Wants to try viagra. Advised him to consult his cardiologi st as well. He agreed., he siad his cardiologi st agreed, now he wants up dose. Cramping pain 375266908 R52 Discussed with patient. On diuretic , might have low magnesium , will check. Chronic th oracic back pain 8936364328 90138 M54.6 Med refills. Diabetic p eripheral neuropathy 760585072 E11.40 Discussed with patient, wanting up grade dose gabapentin . Chronic ob structive pulmonary disease 99264189 J44.9 History of partial lung collapsed, needs inhaler to breathe. Second hand smoker in the past. Wanting Alph-1 antitryp sin screening. He agreed to D/C symbicort which has steroid . 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 [id number] Vangie Tello MD [facility] (Adult Med) [address] [place] [address] 07/25/2023 16:36:06 07/30/2023 11:15:49 Chronic atrial fibrillation 237109630 I48.20 Will go to [facility] for new cardiologi st. Diabetes mellitus 779345 09 E11.40 Metformin, regular formula, messed his GI , Diarrhea. Refilled glimepirid e 4 mg 2 pills bid, ordered yesterday. Wants increase dose of pioglitazo ne. Chronic co ngestive heart failure 06128398 I50.9 Under the care of his cardiologi st., On yxrqzh6ajo e, needs potassium supplement . Chronic ob structive pulmonary disease 12333167 J44.9 History of partial lung collapsed, needs inhaler to breathe. Second hand smoker in the past. Wanting Alph-1 antitryp sin screening. He agreed to D/C symbicort which has steroid . 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 Acid reflux 026638227 K2 1.9 Stable. Diabetic p eripheral neuropathy 568286538 E11.40 Discussed with patient, wanting up grade dose gabapentin . Cramping pain 453603380 R52 Discussed with patient. On diuretic , might have low magnesium , will check. Dyslipidem ia due to type 2 diabetes mellitus 7935121726 02 E78.5 On low saturated fat diet, Erectile dysfunction 860 713578 F52.21 Wants to try viagra. Advised him to consult his cardiologi st as well. He agreed., he siad his cardiologi st agreed, now he wants up dose. Hernia of anterior abdominal wall 344710847 K43.9 Discussed with patient, agreed for the CAT scan. Has claustroph obia, will give one ativan prior to CAT scan.He wants [facility] to take care of . [id number] Michelle Goodman MD [facility] [address] [place] [address] 07/26/2023 11:19:15 07/26/2023 14:34:35 Moderate persistent asthma 459239148 J45.40 He uses Ventolin HFA but having significan t SOB., I will continue incruse ellipta and add Symbicort 160/4.5, I will recheck PFTs, he has been having trou ble with shortne s s o f b r e a t h . Tolerant non-smoker 8773 9003 Z87.891 Patient has second hand smoking Obstructiv e sleep apnea syndrome 80568982 G47.33 Patient is on treatment. AHI 24/hour, patient required BIPAp 18/8 with O2 4L/m into nasal mask. I will adjust his pressure to 20/10 with 4L/M of O2. He's feeling the pressure is not enough, I will get download of his CPAP. Restrictiv e lung disease 46224550 J98.4 FEV1 36%, FVC 32%, FEV1/FVC 87%, BD-, TLC 43%, DLCO 47%, will add Combivent respimat to his regimen. CXR 07/16 IMPRESSION :===== Mild groundglas s opacities left lung base could relate to atelectasi s or early pneumonia. Clinical follow-up recommende d. Follow-up to resolution with radiograph in 8 weeks recommende d. - I will get CT chest Ct chest IMPRESSION : 09/2018 1. Mild subsegment al atelectasi s in the lung bases. No suspicious lesion. 2. Cardiomega ly. Mild coronary calcificat ions and atheroscle rosis. 3. Mild to moderate degenerati ve changes throughout the visualized spine. 4. 2 nonobstruc ting calculi left kidney measuring 9 mm and 3 mm. No hydronephr osis or obstructin g calculus. 5. Supraumbil ical midline ventral abdominal wall hernia. This has a base of 4. 2 cm and sac diameter of 10.6 cm. This contains mesenteric fat and a small portion of the transverse colon. No evidence of ischemia or obstructio n, but close clinical follow-up recommende d since there is a narrow neck. Morbid obesity 739048189 E66.01 Advised about diet and exercise for weight reduction Hypoxemia 282834139 R09. 02 Patient has 6MWT showed he needs O2 at 2L/M. Will order portable concentrat or. Patient is using O2 at home. 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 On gabapentin - will increase dose to 400mg X3 Dizziness 741386444 R42 DDimer was negative and CTA negative Health Concerns Section Related Observation LastModified by Organization Detai ls LastModified Time None Recorded Concern Status LastModified by Organization Details LastModified Time None Recorded Advance Directives Directive N: Payers Encounter Date Sequence Insurance Name Policy Number Policy Leon Covered Member ID Leon Member ID Guarantor Name 06/21/2022 1 [facility] ON OR AFTER 11/25/20 (MEDICAID REPLACEMENT - HMO) Mann Choudhury [id number] Mann Choudhury 02/07/2023 1 [facility] ON OR AFTER 11/25/20 (MEDICAID REPLACEMENT - HMO) Mann Lemp [id number] Mann Lemp 04/11/2023 1 [facility] - DOS ON OR AFTER 20 (MEDICAID REPLACEMENT - HMO) Mann Lemp [id number] Mann Lemp 07/25/2023 1 [facility] - DOS ON OR AFTER 20 (MEDICAID REPLACEMENT - HMO) Mann Lemp [id number] Mann Lemp 07/26/2023 1 [facility] - DOS ON OR AFTER 20 (MEDICAID REPLACEMENT - HMO) Mann Lemp [id number] Mann Lemp Notes Date Note Type Note Provider Name and Address Organization Details Recorded Time 06/21/2022 text/html Office visit,Allergic to glimepiride. History of type 2 DM, CHF, dyslipidemia skin eruption, upper back pain , and ED. Wants to refill med and referrals. Vangie Tello MD Attn: Accounting,[address] [place], [address], [facility] 06/21/2022 16:52:16 02/07/2023 text/html Office visit, allergic to glimepiride, check up and blood tests and med refills. Vangie Tello MD Attn: Accounting,[address] [place], [address], [facility] 02/07/2023 18:24:23 04/11/2023 text/html Office visit, allergic to glimepiride. Check up med refills. C/C1. respiratory track infection, 2. Right ear wax impacted. 3. Abdominal wall hernia getting bigger. No chest pain, some congestion of sinus, throat, want z PK. No fever, no other complaints, ROS as noted in HPI. Vangie Tello MD Attn: Accounting,[address] [place], [address], [facility] 04/11/2023 17:31:19 07/25/2023 text/html Office visit. allergic to glimepiride. history of type 2 DM, CHF, diabetic neuropathy, on oxygen , Check up and med refills. if any. No chest pain, no fever, no shortness of breath, regular appetite and Bowel habit. ROS as noted in HPI. Vangie Tello MD Attn: Accounting,[address] [facility], [place], [address], [facility] 07/25/2023 17:42:22 07/26/2023 text/html Patient is here for follow-up. He relates to me that his BiPAP machine is not giving him enough pressure. He has been having more shortness of breath. He has been having right shoulder pain and neck pain. He has not been in the office since October of 2020 Michelle Goodman MD [address] [facility], [place], [address], [facility] 07/26/2023 12:13:57
== END 2024-06-26 11:14 | disposition home or self-care (01) ==
LOC: ANHSURGERY 11:18
PROVIDERS: PCP Student in an Organized Health Care Education/Training Program; Visit Provider Surgery
DX: K43.6 Other and unspecified ventral hernia with obstruction, without gangrene (principal)
CPT/HCPCS: 36415; 86850; 86900; 86901

== ENCOUNTER 2024-06-26 12:47 | Emergency (ER) | payer MEDICARE, MEDICAID, SELFPAY ==
--- NOTE | ~2024-06-26 | XR_ITS ---
XR chest 2V 06/26/2024 14:57 Indication: Chest pain Procedure: 2 view chest Comparison: 11/23/2015 Findings: Borderline heart size. No focal air space disease, pulmonary edema, pleural effusion or rocio pected pneumothorax. No acute osseous abnormality. Impression: 1: No acute cardiopulmonary disease. Reviewed, dictated and finalized at location A. ATING ROOM MANAGER Impression: 1: No acute cardiopulmonary disease.
[2024-06-26 12:53] VITALS: BP 112/63; PULSE 94; RESP 16; TEMP 36.4; O2SAT 94
--- OUTSIDE RECORDS SUMMARY | 2024-06-26 13:33 | XMS_ITS | Clinical Summary ---
Author Organization [facility] Address [address] [place] [address]. [place], [place] [address] [place] [id number] Care Team Providers Care Sprayer Hand Name Role Phone Davi Alyce Garcia Primary Care Provide r Allergies Active Allergy Reactions Criticality Noted Date Comments Lidocaine Angioedema,Swelling Medium 11/25/2021 Active Problems Problem Noted Date Diagnosed Date Reducible bulge of abdominal wall 06/28/2023 Fatigue 09/09/2019 Morbid obesity ([facility]) 09/09/2019 Non-seasonal allergic rhinitis due to pollen Obstructive sleep apnea 09/09/2019 Pulmonary hypertension ([facility]) 020 History of pneumonia 05/18/2016 Hypoxemia 05/18/2016 Shortness of breath 05/18/2016 Sleep disorder 05/18/2016 Resolved Problems Problem Noted Date Diagnosed Date Resolved Date Non-smoker 09/09/2019 11/26/2023 Social History Tobacco Use Types Packs/Day Years Used Date Smoking Tobacco: Never Assessed Sex and Gender Information Value Date Recorded Sex Assigned at Not on file Legal Sex Male 11:15 PM [facility] Gender Identity Not on file Sexual Orientation [...] complete this topic Insurance MEDICARE Care Teams Sprayer Hand Relationship Specialty Start Date End Date Davi Alyce Garcia PA [address] [place] [address] PCP - General Physician [facility] 09/10/23
--- OUTSIDE RECORDS SUMMARY | 2024-06-26 13:33 | XMS_ITS | Data Portability ---
Author Organization [facility] OFFICE Address [address] [place] [address] Care Team Providers Care Commercial Litigation Attorney Name Role Phone JOAN TELLO Primary Care Provider [phone] Assessment Encounter Date Assessment Date Assessment LastModified by Organization Details LastModified Time 06/27/2022 06/27/2022 Patient Examined by SURAJ Marie, Also Documentation reviewed and approved by supervising physician myla Not available 06/27/2022 18:18:53 Plan of Treatment Reminders Order Date Submit Date Provider Last Modified By Organization Details Last Modified Time Details Appointments None recorded . Lab None recorded . Referral None recorded . Procedures None recorded . Surgeries None recorded . Imaging None recorded . Medication Orders aspirin 325 mg tablet [id number], [address], [place], [id number], 3 16:34:26 carvedil ol 6.25 mg tablet 2019 020 [facility], [address], [place], [id number], 3 16:34:23 Digox 250 mcg (0.25 mg) tablet 2019 [facility], [address], [place], [id number], 0 12:27:53 Cardizem CD 240 mg capsule, extended release 2019 [facility] #38395, [address], [place], [id number], 0 12:27:51 simvasta tin 40 mg tablet 2019 INTERFACE [facility] #19401, [address], [place], [id number], 0 12:27:51 furosemi de 40 mg tablet 2019 INTERFACE [facility] #56950, [address], [place], [id number], 0 12:27:53 potassiu m chloride ER 10 mEq tablet,e xtended release 2019 INTERFACE [facility] #96552, [address], [place], [id number], 0 12:27:54 furosemi de 40 mg tablet 2019 [facility] #65092, [address], [place], [id number], 0 15:47:14 aspirin 325 mg tablet 2019 [facility] #00693, [address], [place], [id number], 3 16:34:26 Cardizem CD 240 mg capsule, extended release 2019 INTERFACE [facility] #74529, [address], [place], [id number], 0 15:47:17 carvedil ol 6.25 mg tablet 2019 [facility] #89158, [address], [place], [id number], 3 16:34:23 Digox 250 mcg (0.25 mg) tablet 2019 020 [facility] #37257, [address], [place], [id number], 0 15:47:14 simvasta tin 40 mg tablet 2019 020 [facility] #12009, [address], [place], [id number], 0 15:47:14 Xarelto 20 mg tablet 2020 021 [facility] #18319, [address], [place], [id number], 1 13:03:44 Toprol XL 50 mg tablet,e xtended release 2022 023 [facility] #25729, [address], [place], [id number], 3 18:23:15 Patient TargetsNo targets recorded. Patient Instructions Encounter Date Encounter Id Patient Instructions Last Modified By Organization Details Last Modified Time 07/15/2019 [id number] Exercise advised. Low cholesterol diet advised. Low sodium diet advised. [email or web address] Not available 07/15/2019 12:12:37 Scribed by Tram [email or web address] Not available 07/15/2019 12:12:29 08/27/2019 [id number] Weight loss 20 pounds Exercise advised Low cholesterol diet advised Low sodium diet advised. [email or web address] Not available 08/27/2019 14:20:19 This document was scribed by DENY Brenner Not available 08/27/2019 14:20:26 09/21/2022 [id number] Weight loss 20? ? ?pounds Exercise advised Low cholesterol diet advised Low sodium diet advised. [email or web address] Not available 09/21/2022 16:33:54 Reason for Referral None Reported. Results Created Date Observation Date Name Description Value Unit Range Abnormal Flag Note LastModifiedBy Organization Detail LastModifiedTime 07/15/1907/15/2019 elect rocar diogr am No observ ation record ed. [email or web address] Not Available 07/30 16:22:05 08/12/19 20 08/04/2019 XR, chest No observ ation record ed. [email or web address] Not Available 08/11 09:23:54 08/12/19 20 08/04/2019 elect rocar diogr am No observ ation record ed. [email or web address] Not Available 08/11 09:58:39 08/27/19 20 08/04/2019 elect rocar diogr am No observ ation record ed. [email or web address] Not Available 2019 15:43:19 08/27/19 20 08/04/2019 XR, chest , 1 view No observ ation record ed. [email or web address] Not Available 08/26 16:18:28 11/26/19 21 11/19/2020 elect rocar diogr am No observ ation record ed. Not Available 11/25 11:32:25 07/10/19 23 06/27/2022 elect rocar diogr am No observ ation record ed. [email or web address] Not Available 2022 10:48:57 09/30/19 23 09/18/2022 US, echoc ardio gram No observ ation record ed. [email or web address] Not Available 2022 12:46:06 Result Notes None recorded. Problems Name Problem SNOMED Code Status Onset Date Resolution Date Notes Provider Name and Address Organization Details Recorded Time History of obesity 818289225 Active 2016 Not Available [facility] 4 15:52:[facility] Edema 045231847 Active 2016 Not Available [facility] 4 15:52:41 Cardiac arrhythmia 229733988 Active 2016 Not Available [facility] 4 15:52:41 Acute anoxic encephalopath y 45106287 Active 2016 Not Available [facility] 4 15:52:41 Acute hypercapnic respiratory failure 616756990 Active 2016 Not Available [facility] 4 15:52:41 Community acquired pneumonia 841634984 Active 2016 Not Available [facility] 4 15:52:41 Benign essential hypertension 2415464 Active 2017 Not Available [facility] 4 15:52:40 Dyslipidemia 894836957 Active 2018 Not Available [facility] 4 15:52:41 Dyspnea on exertion 80177780 Active 2018 Not Available [facility] 4 15:52:41 Palpitations 03771896 Active 2015 Not Available [facility] 4 15:52:41 Paroxysmal atrial fibrillation 464179061 Active 2015 Not Available [facility] 4 15:52:41 Obstructive sleep apnea syndrome 89432850 Active 2015 not on CPAP ( only O2 at night) Not Available [facility] 4 15:52:41 Diabetes mellitus 68779684 Active 2015 Not Available [facility] 4 15:52:41 Congestive heart failure 71680313 Active 2015 Not Available [facility] 4 15:52:41 Hypersomnia 59402476 Active 2015 Not Available [facility] 4 15:52:41 Chronic obstructive pulmonary disease 45819943 Active 2015 Not Available [facility] 4 15:52:40 Asthma 160481584 Active 2015 Not Available [facility] 4 15:52:41 Gastroesophag eal reflux disease 111949616 Active 2015 Not Available [facility] 4 15:52:41 Morbid obesity 388871569 Active 2015 Not Available [facility] 4 15:52:41 Notes:Fracture of right hand ( secondary to lose of consciousnes ) (10/07) Problem Notes None recorded. Procedures Surgical History Date Name Laterality Status Provider Name and Address Organization Details Recorded Time Tonsillectomy/Alexia noidectomy completed [facility] 10/18/2015 15:27:42 Appendectomy completed [facility] 10/18/2015 15:27:49 Orthopedic Surgery completed [facility] 10/18/2015 15:27:59 Imaging Results Imaging Date Name Status LastModified by Organization Details LastModified Time 07/15/2019 electrocardiogram completed Informa tion not available 07/31/2019 16:22:05 08/04/2019 [email or web address] no t available 08/12/2019 09:23:54 08/04/2019 electrocardiogram completed Informa tion not available 08/12/2019 09:58:39 08/04/2019 electrocardiogram completed [email or web address] Informa tion not available 08/27/2019 15:43:19 08/04/2019 XR, chest, 1 view completed Informa tion not available 08/27/2019 16:18:28 11/19/2020 electrocardiogram completed [email or web address] Informa tion not available 11/25/2020 11:32:25 06/27/2022 electrocardiogram completed Informa tion not available 07/11/2022 10:48:57 09/18/2022 US, echocardiogram completed Inform ation not available 10/02/2022 12:46:06 Procedure Notes None recorded. Medical Equipment None Reported. Allergies Allergen ID Allergen Name Allergen Category Reaction Reaction Severity Criticality Documentation Date Start Date Code Code System Note Provider Name and Address Organization Details Recorded Time 3988 lidocaine medicatio n facial swelling severe Not available 09/11/2016 6387 RxNorm Tramalona stern [facility] 7 16:58:29 Medications Name Sig Start Date Stop Date Status Note LastModified by Organization Details LastModified Time cyclobenz aprine 10 mg tablet TAKE 1 TABLET BY MOUTH THREE TIMES DAILY active Not Available Not Available No t Available furosemid e 40 mg tablet TAKE 1 TABLET BY MOUTH EVERY DAY active Not Available Not Available No t Available metformin 500 mg tablet 09/11 completed Not Available Not Available Not Available carvedilo l 6.25 mg tablet TAKE 1 TABLET BY MOUTH TWICE DAILY 09/21 completed Not Available Not Available Not Available gabapenti n 600 mg tablet 07/15 completed Not Available Not Available Not Available ipratropi um 0.5 mg-albute rol 3 mg (2.5 mg base)/3 mL nebulizat ion soln USE 1 VIAL VIA NEBULIZE R FOUR TIMES DAILY active Not Available Not Available No t Available ketoconaz ole 2 % shampoo active Not Available Not Available Not Available clindamyc in HCl 300 mg capsule TAKE ONE CAPSULE BY MOUTH FOUR TIMES DAILY FOR 10 DAYS 09/21 completed pt is no longer taking 06/27/22 SA Not Available Not Available Not Available azithromy rubina 250 mg tablet 09/21 completed pt is no longer taking 06/27/22 SA Not Available Not Available Not Available aspirin 325 mg tablet TAKE 1 TABLET BY MOUTH DAILY 09/21 completed Not Available Not Available Not Available ibuprofen 800 mg tablet TAKE 1 TABLET BY MOUTH AFTER MEALS NEEDED active Not Available Not Available No t Available metoprolo l succinate ER 50 mg tablet,ex tended release 24 hr TAKE 1 TABLET BY MOUTH EVERY DAY active Not Available Not Available No t Available diltiazem CD 240 mg capsule,e xtended release 24 hr TAKE 1 CAPSULE BY MOUTH EVERY DAY active Not Available Not Available No t Available meloxicam 15 mg tablet TAKE 1 TABLET BY MOUTH EVERY DAY WITH FOOD active Not Available Not Available No t Available prednison e 20 mg tablet active Not Available Not Available Not Available diltiazem ER 240 mg capsule,2 4 hr,extend ed release TAKE ONE CAPSULE BY MOUTH EVERY DAY 11/19 completed Not Available Not Available Not Available penicilli n V potassium 500 mg tablet 11/19 completed Not Available Not Available Not Available Nexium 40 mg capsule,d elayed release Take 1 capsule every day by oral route. active Not Available Not Available No t Available potassium chloride ER 10 mEq tablet,ex tended release TAKE 2 TABLETS BY MOUTH EVERY DAY DIRECTED active Not Available Not Available No t Available Coated Aspirin 325 mg tablet Take 1 tablet every day by oral route. 06/17 completed Not Available Not Available Not Available acetamino phen 300 mg-codein e 30 mg tablet TAKE 1 TO 2 TABLETS BY MOUTH EVERY 6 HOURS PN FOR PAIN active Not Available Not Available No t Available digoxin 250 mcg (0.25 mg) tablet TAKE 1 TABLET BY MOUTH DAILY active Not Available Not Available No t Available ciproflox acin 500 mg tablet 01/21 completed Not Available Not Available Not Available sulfameth oxazole 800 mg-trimet hoprim 160 mg tablet TAKE 1 TABLET BY MOUTH EVERY 12 HOURS AFTER MEALS FOR 7 DAYS 09/21 completed Not Available Not Available Not Available hydrocodo ne 10 mg-acetam inophen 325 mg tablet TAKE 1 TABLET BY MOUTH TWICE DAILY FOR 10 DAYS NEEDED active Not Available Not Available No t Available aspirin 81 mg tablet,de layed release TAKE 1 TABLET BY MOUTH DAILY DIRECTED active Not Available Not Available No t Available tramadol 50 mg tablet active Not Available Not Available Not Available spironola ctone 25 mg tablet Take 1 tablet every day by oral route. 06/17 completed Not Available Not Available Not Available amoxicill in 500 mg tablet 06/18 completed Not Available Not Available Not Available simvastat in 40 mg tablet TAKE 1 TABLET BY MOUTH DAILY AFTER SUPPER active Not Available Not Available No t Available glimepiri de 2 mg tablet 1 Tab OD active Not Available Not Available Not Available glimepiri de 1 mg tablet 11/19 completed Not Available Not Available Not Available ketorolac 10 mg tablet 01/21 completed Not Available Not Available Not Available K-Dur 20 mEq tablet,ex tended release Take 1 tablet every day by oral route. 06/18 completed Not Available Not Available Not Available famotidin e 20 mg tablet TAKE 1 TABLET BY MOUTH TWICE DAILY DIRECTED active Not Available Not Available No t Available magnesium oxide 400 mg (241.3 mg magnesium ) tablet TAKE 1 TABLET BY MOUTH EVERY DAY DIRECTED active Not Available Not Available No t Available lorazepam 0.5 mg tablet 01/21 completed Not Available Not Available Not Available aspirin 325 mg tablet,de layed release active Not Available Not Available Not Available gabapenti n 800 mg tablet TAKE 2 TABLETS BY MOUTH TWICE DAILY DIRECTED active Not Available Not Available No t Available hydrocodo ne 7.5 mg-acetam inophen 325 mg tablet active Not Available Not Available Not Available Lasix 20 mg tablet Take 1 tablet every day by oral route. 06/17 completed Not Available Not Available Not Available cephalexi n 500 mg capsule 09/21 completed pt is no longer taking 06/27/22 SA Not Available Not Available Not Available lisinopri l 10 mg tablet Take 1 tablet every day by oral route. 06/17 completed Not Available Not Available Not Available glimepiri de 4 mg tablet TAKE 2 TABLETS BY MOUTH TWICE DAILY WITH MEALS active Not Available Not Available No t Available Qvar 40 mcg/actua tion Metered Aerosol oral inhaler as needed active Not Available Not Available No t Available gabapenti n 300 mg capsule Take 1 capsule every day by oral route. 07/15 completed Not Available Not Available Not Available zolpidem 5 mg tablet 09/11 completed Not Available Not Available Not Available gabapenti n 100 mg capsule 07/17 completed Not Available Not Available Not Available Viagra 100 mg tablet Take 1 TABLET 1 HOUR PRIOR TO SEXUAL ACTIVITY DIRECTED , BUT NOT TO EXCEED MORE THAN 1 IN 24 HOURS. MUST LAST 30 DAYS active Not Available Not Available No t Available epinephri ne 0.3 mg/0.3 mL injection , auto-inje ctor INJECT 0.3 ML INTO THE MUSCLE DIRECTED FOR 1 DOSE active Not Available Not Available No t Available ibuprofen 600 mg tablet PRN 11/19 completed Not Available Not Available Not Available zolpidem 10 mg tablet 01/21 completed Not Available Not Available Not Available methylpre dnisolone 4 mg tablets in a dose pack FOLLOW PACKAGE DIRECTIO NS active Not Available Not Available No t Available albuterol sulfate HFA 90 mcg/actua tion aerosol inhaler INHALE 2 PUFFS BY MOUTH EVERY 4 HOURS NEEDED active Not Available Not Available No t Available pioglitaz one 30 mg tablet TAKE 1 TABLET BY MOUTH EVERY DAY WITH MEALS active Not Available Not Available No t Available ketoconaz ole 2 % topical cream APPLY TOPICALL Y TO THE AFFECTED AREA EVERY DAY active Not Available Not Available No t Available metformin ER 500 mg tablet,ex tended release 24 hr BID active Not Available Not Available Not Available clotrimaz ole 1 % topical cream 01/21 completed Not Available Not Available Not Available naproxen 500 mg tablet TAKE 1 TABLET BY MOUTH TWICE DAILY WITH MEALS active Not Available Not Available No t Available amoxicill in 875 mg-potass ium clavulana te 125 mg tablet 09/11 completed Not Available Not Available Not Available potassium chloride ER 10 mEq tablet,ex tended release(p art/cryst ) 11/19 completed Not Available Not Available Not Available Symbicort 160 mcg-4.5 mcg/actua tion HFA aerosol inhaler INHALE 2 PUFFS BY MOUTH TWICE DAILY active Not Available Not Available No t Available Xarelto 20 mg tablet TAKE 1 TABLET BY MOUTH EVERY DAY 2021 active Not Available Not Available Not Avai lable potassium chloride ER 20 mEq tablet,ex tended release Take 1 tablet every day by oral route. 07/22 completed this tablet was too big for pt to swallow and when cut in half the table fell apart Not Available Not Available Not Available True Metrix Glucose Test Strip active Not Available Not Available Not Available Incruse Ellipta 62.5 mcg/actua tion powder for inhalatio n INHALE 1 PUFF BY MOUTH EVERY DAY active Not Available Not Available No t Available OneTouch Ultra Blue Test Strip active Not Available Not Available Not Available OneTouch Ultra2 Meter 01/21 completed Not Available Not Available Not Available Vitals Date Recorded Body height Body mass index (BMI) Body weight Heart rate Oxygen saturation Oxygen saturation in Arterial blood by Pulse oximetry Systolic blood pressure Diastolic blood pressure Provider Name and Address Organization Details Last Updated DateTime 0 182.88 cm 44.8 kg/m2 971740. 48 g 70 /min 90 % 90 % 130 mm[Hg] 90 mm[Hg] SIN RYDER [facility] 0 11:57:43 Date Recorded Body height Heart rate Oxygen saturation Oxygen saturation in Arterial blood by Pulse oximetry Systolic blood pressure Diastolic blood pressure Provider Name and Address Organization Details Last Updated DateTime 0 182.88 cm 100 /min 90 % 90 % 126 mm[Hg] 86 mm[Hg] My Perera [facility] 0 14:05:28 Date Recorded Body weight Oxygen saturation Oxygen saturation in Arterial blood by Pulse oximetry Heart rate Systolic blood pressure Diastolic blood pressure Provider Name and Address Organization Details Last Updated DateTime 1 301755. 63 g 94 % 94 % 110 /min 122 mm[Hg] 67 mm[Hg] SANTO PROCTOR [facility] 1 12:33:20 Date Recorded Body height Body mass index (BMI) Body weight Oxygen saturation Oxygen saturation in Arterial blood by Pulse oximetry Heart rate Systolic blood pressure Diastolic blood pressure Provider Name and Address Organization Details Last Updated DateTime 3 182.88 cm 40 kg/m2 953221. 47 g 94 % 94 % 81 /min 104 mm[Hg] 72 mm[Hg] JAYLA PRASAD [facility] 3 17:49:45 Date Recorded Body height Body mass index (BMI) Body weight Heart rate Respiratory rate Oxygen saturation Oxygen saturation in Arterial blood by Pulse oximetry Systolic blood pressure Diastolic blood pressure Provider Name and Address Organization Details Last Updated DateTime 3 182.88 cm 38.4 kg/m2 285212. 64 g 77 /min 16 /min 98 % 98 % 122 mm[Hg] 84 mm[Hg] Augie Salgado [facility] 3 16:01:01 Social History Question Answer Notes LastModified by Organizat ion Details LastModified Time Tobacco Smoking Status [facility] 15:34:26 Which Illicit Or Recreational Drugs Have You Used? None Information not available 08/09/2019 Do You Or Have You Ever Used E-cigarettes Or Vape? 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 06/17/2018 Information not available 12/19/2018 Do You Or Have You Ever Used Smokeless Tobacco? Former Smokeless Tobacco User Information not available 07/12/2019 Sex: Unknown Functional Status None recorded. Mental Status None recorded. Family History Relationship Description Onset Age of this Age Resolved Age Notes LastModified by Organization Details LastModified Time Mother Arthritis [email or web address] Not available 10/18/2015 15:33:08 Mother Disorder of lung [email or web address] Not available 2015 15:33:23 Father Hypertensive disorder [email or web address] Not available 2015 15:33:37 Father Myocardial infarction [email or web address] Not available 12/11 15:01:11 Brother Obstructive sleep apnea syndrome [email or web address] Not available 2015 15:34:01 Notes:No known premature cor onary artery disease. Medical History Condition Response Atrial Fibrillation Y COPD Y Diabetes Y Congestive Heart Failure (CHF) Y Sleep Apnea Y Hypertension Y Past Encounters Encounter ID Performer Location Encounter Start Date Encounter Closed Date Diagnosis/Indication Diagnosis SNOMED-CT Code Diagnosis ICD10 Code Diagnosis Note [id number] Arsenio Amaya MD [facility] [address] [place] [address] 03/13/2016 16:20:46 03/14/2016 10:31:22 Benign essential hypertension 8061071 I10 with fair control Paroxysmal atrial fibrillation 383771782 I48.0 Now in NSR. {{On Full dose ASA* On ASA no need for anti coagulatio n Can not have anti coagulatio n due to bleeding Can not have anti coagulatio n due to risk of bleed}} Obstructiv e sleep apnea syndrome 16612282 G47.33 Will need Cpap [id number] Arsenio Amaya MD [facility] [address] [place] [address] 09/11/2016 15:55:04 09/12/2016 09:58:35 Chronic obstructive pulmonary disease 45316539 J44.9 Benign ess ential hypertension 8906898 I10 with fair control Paroxysmal atrial fibrillation 061098952 I48.0 Now in NSR. {{On Full dose ASA* On ASA no need for anti coagulatio n Can not have anti coagulatio n due to bleeding Can not have anti coagulatio n due to risk of bleed}} Obstructiv e sleep apnea syndrome 54613676 G47.33 Will need Cpap Hypertensive disorder 38 014880 I10 Congestive heart failure 71478035 I50.9 Palpitations 36655626 R0 0.2 [id number] Katherine Mazariegos Office [address] [place] [address] 06/17/2018 12:11:07 06/17/2018 13:51:43 Paroxysmal atrial fibrillation 760984860 I48.0 A-fib today wth RVR at 103 bpm.Will anticoagul ate with Eliquis. Continue Coreg and Cardizem. Has normal LV systolic function. He needs to be on Coumadin, but he had bleeding from that. Obstructiv e sleep apnea syndrome 12429311 G47.33 Will need Cpap. F/u with Dr. Goodman. Needs repeat sleep study. Chronic ob structive pulmonary disease 16126605 J44.[address] Goodman. Benign ess ential hypertension 2117309 I10 with fair control. Continue current regimen. Needs medication compliance . Diabetes mellitus 155785 09 E11.9 Borderline . Treatment and evaluation by primary care doctor. Discussed importance of adequate glycemic control to minimize cardiovasc ular disease progressio n. A1C goal of < 7% for type 2 DM Dyslipidemia 961968016 E 78.5 Needs to keep LDL less than 70, and HDL more than 40 Will get lipid profile results from PCP Congestive heart failure 37814867 I50.9 HF-pEFHad ECHO 05/13/18 showing normal LV size and functionCo ntinue lasix with daily compliance . Dyspnea on exertion 6084 5006 R06.09 Multifacto rial. Could be angina equivalent . Will obtain Lexiscan Myoview Stress Test to look for any ischemia. Patient cannot walk. Has a high Sheldon Risk score. Has Known CAD and/or CAD risk equivalent . Continue [place] [id number] MD Tahira Schaeffer Office [address] [place] [address] 07/17/2018 15:25:46 07/17/2018 16:24:37 Dyspnea on exertion 87042137 R06.09 Multifacto rial. Could be angina equivalent . Will obtain Lexiscan Myoview Stress Test to look for any ischemia. Patient cannot walk. Has a high Sheldon Risk score. Has Known CAD and/or CAD risk equivalent . Continue maximal medical treatment and risk factor modificati on Chronic ob structive pulmonary disease 73378802 J44.[address] Goodman. Paroxysmal atrial fibrillation 993940934 I48.0 A-fib today. HR is well controlled on Cardizem. Continue full-dose ASA. Hyperlipidemia 17421368 E78.5 Benign ess ential hypertension 3218081 I10 with fair control. Continue current regimen. Needs medication compliance . Dyslipidemia 932319519 E 78.5 Needs to keep LDL less than 70, and HDL more than 40 Will get lipid profile results from PCP Diabetes mellitus 045474 09 E11.9 Borderline . Treatment and evaluation by primary care doctor. Discussed importance of adequate glycemic control to minimize cardiovasc ular disease progressio n. A1C goal of < 7% for type 2 DM Obstructiv e sleep apnea syndrome [id number] G47.33 Will need Cpap. F/u with Dr. Goodman. Needs repeat sleep study. Chronic di astolic heart failure [id number] I50.32 Had echo 05/13/18 ECHO: E/E prime ratio is 8-15 which is in the indetermin ate zone. Left ventricula r systolic function appears to be normal. No obvious regional wall motion abnormalit ies noted. The study was technicall y difficult. Congestive heart failure [id number] I50.9 [id number] Arsenio Amaya MD [facility] [address] [place] [address] 01/21/2019 14:37:56 05/14/2019 11:21:11 Congestive heart failure 10411237 I50.9 Euvolemic. Low salt diet. Hyperlipidemia 58110746 E78.5 Needs to keep LDL less than 70, and HDL more than 40 Will get fasting lipids for follow up04/2017 TC 151, HDL 33, TR 101, LDL 98 Essential hypertension 68291266 I10 Controlled . Paroxysmal atrial fibrillation 118192115 I48.0 A-fib today. HR is well controlled on Cardizem. Continue full-dose ASA. Dizziness [id number] R42 Likely due to AFIB. Dyspnea on exertion 6084 5006 R06.09 Multifacto rial. Could be angina equivalent .Dobutamin e Myoview stress test, pt can not walk. Has known coronary artery disease, with atypical symptoms now. Rest imaging was done 07/2018. WIll do stress imaging only.Terrance nue maximal [place] [id number] Arsenio Amaya MD [facility] [place] [address] 07/15/2019 11:01:00 08/04/2019 18:30:17 Dyspnea on exertion 04235703 R06.09 Multifacto rial. Could be angina equivalent .03/12/19 Negative Dobutamine stress test for ischemia. Normal LV systolic function. LVEF 61 %Rest imaging was done 07/2018. WIll do stress imaging only.Terrance nue maximal medical treatment and risk factor modificati on Congestive heart failure [id number] I50.9 Euvolemic. Low salt diet. Hyperlipidemia 05615158 E78.5 Needs to keep LDL less than 70, and HDL more than 40 Will get fasting lipids for follow up04/2017 TC 151, HDL 33, TR 101, LDL 98 Essential hypertension 99389414 I10 Controlled . Paroxysmal atrial fibrillation 636862387 I48.0 A-fib today. HR is well controlled on Cardizem. Continue full-dose ASA.pt. states that he is currently taking ASA 325 mg BID. consider albation if symptoms persist Dizziness [id number] R42 Likely due to AFIB. [id number] Mirta Mazariegos [facility] [address] [place] [address] 08/27/2019 13:42:23 08/27/2019 14:45:48 Dyspnea on exertion 67874800 R06.09 Stable. 03/12/19 DOBUTAMINE : Negative Dobutamine Stress test for ischemia. Normal LV systolic function. LVEF 61% Hyperlipidemia 07309099 E78.5 Needs to keep LDL less than 70, and HDL more than 40 Will get fasting lipids for follow up04/2017 TC 151, HDL 33, TR 101, LDL 98 Essential hypertension 28690234 I10 Controlled . Paroxysmal atrial fibrillation 982011210 I48.0 Recent admission with bradycardi a. Now he is back on Cardizem, Digoxin and Coreg. CHADSVASC score 3. Consider starting AC. Currently on full dose ASA Obstructiv e sleep apnea syndrome [id number] G47.33 On BIPAP. Edema of l ower extremity 079533669 R60.0 stable. Continue lasix, leg elevation, low salt diet. 30648 Daria Jon [facility] [address] [place] [address] 11/19/2020 12:24:06 11/19/2020 13:03:45 Paroxysmal atrial fibrillation 343234082 I48.0 Recent admission with bradycardi a. Now he is back on Cardizem, Digoxin and Coreg. CHADSVASC score 3.Stop ASAStart Xarelto Dyspnea on exertion 6084 5006 R06.09 Stable. Obtain echo to evaluate for structural /functiona l disease. 03/12/19 DOBUTAMINE : Negative Dobutamine Stress test for ischemia. Normal LV systolic function. LVEF 61% Hyperlipidemia 41761082 E78.5 Needs to keep LDL less than 70, and HDL more than 40 Will get fasting lipids for follow up04/2017 TC 151, HDL 33, TR 101, LDL 98 Essential hypertension 28419087 I10 Controlled . Obstructiv e sleep apnea syndrome 57611643 G47.33 On BIPAP. Edema of l ower extremity 772715140 R60.0 stable. Continue lasix, leg elevation, low salt diet. 10897 BRUNO THOMASRADHA [facility] [address] [place] [address] 06/27/2022 17:20:25 06/27/2022 18:24:45 Paroxysmal atrial fibrillation 947321913 I48.0 Recent admission with bradycardi a. Now he is back on Cardizem, Digoxin and Coreg. CHADSVASC score 3.He is on coreg 6.25 mg bid will stop thatwill start him on Toprol xl 50 mg Dyspnea on exertion 6084 5006 R06.09 Obtain echo to evaluate for structural /functiona l disease. 03/12/19 DOBUTAMINE : Negative Dobutamine Stress test for ischemia. Normal LV systolic function. LVEF 61% Hyperlipidemia 12170993 E78.5 Needs to keep LDL less than 70, and HDL more than 40 Will get fasting lipids for follow up04/2017 TC 151, HDL 33, TR 101, LDL 98 Essential hypertension 87591809 I10 Controlled . Obstructiv e sleep apnea syndrome 49503309 G47.33 On BIPAP. Edema of l ower extremity 260146571 R60.0 increased to twice daily lasix 40 mg for one week then go back to 40 mg daily, leg elevation, low salt diet. 16988 Arsenio Amaya MD [facility] [address] [place] [address] 09/21/2022 15:55:44 09/21/2022 16:40:03 Paroxysmal atrial fibrillation 628863208 I48.0 Recent admission with bradycardi a. Now he is back on Cardizem, Digoxin and Coreg. CHADSVASC score 3. On Toprol xl 50 mg Dyspnea on exertion 6084 5006 R06.09 Normal Left ventricula r systolic function 03/12/19 DOBUTAMINE : Negative Dobutamine Stress test for ischemia. Normal LV systolic function. LVEF 61% Hyperlipidemia 28380478 E78.5 Needs to keep LDL less than 70, and HDL more than 40 Will get fasting lipids for follow up04/2017 TC 151, HDL 33, TR 101, LDL 98 Essential hypertension 32071799 I10 Controlled . Obstructiv e sleep apnea syndrome 99110478 G47.33 On BIPAP. Edema of l ower extremity 192019523 R60.0 On Lasix 40 mg daily, leg elevation, low salt diet. Health Concerns Section Related Observation LastModified by Organization Detai ls LastModified Time None Recorded Concern Status LastModified by Organization Details LastModified Time None Recorded Advance Directives Directive None Recorded Payers Encounter Date Sequence Insurance Name Policy Number Policy Leon Covered Member ID Leon Member ID Guarantor Name 07/15/2019 1 [facility] PRIOR TO 11/25/2020 (MEDICAID REPLACEMENT - HMO) Mann S Lemp [id number] Mann S Lemp 08/27/2019 1 [facility] PRIOR TO 11/25/2020 (MEDICAID REPLACEMENT - HMO) Mann S Lemp [id number] Mann S Lemp 11/19/2020 1 [facility] PRIOR TO 11/25/2020 (MEDICAID REPLACEMENT - HMO) Mann S Lemp [id number] Mann S Lemp 06/27/2022 1 [facility] ON OR AFTER 11/25/20 (MEDICAID REPLACEMENT - HMO) Mann S Lemp [id number] Mann S Lemp 09/21/2022 1 [facility] ON OR AFTER 11/25/20 (MEDICAID REPLACEMENT - HMO) Mann S Lemp [id number] Mann S Lemp Notes Date Note Type Note Provider Name and Address Organization Details Recorded Time 07/15/2019 text/html 07/15/19 CC: dimitris-fib 58 year-old white man with paroxysmal atrial fibrillation, HF-pEF, hypertension, diabetic mellitus, obstructive, COPD, CHRISTINE ( Bipap), is here for follow-up. Patient was last here 6 months ago. Since then he is doing well. He states that he has has had some fluttering occasionally since the last visit. He is up 23 lb since his last visit. He states that he walkes daily. He states that he becomes SOB very quick due to decrease lung function. occasional dizziness noted. Patient states that he has been having increased fatigue. Also states that he is drinking 2 caffeine drinks a day. May need an adjustment on BIPAP Reports 2 pillow orthopnea. No PND. No palpitation. No syncope or near syncope. No leg swelling. No nausea and vomiting. He was at [facility] In April after a syncopal event with loss of conciousness with fall. Was dx and tx for Pneumonia. EKG showed A-fib with RVR. We were never consulted to see him. Was d/c home on Cardizem 240 mg QD and to continue with his regular medications. He is currently not on any antiplatelets or anticoagulants. Had ECHO 05/13/18 showing normal LV size and function He follows Dr. Goodman for his CHRISTINE and COPD. Results from this visit, or from the past:CMP, serum or plasma 05-30-2018 05/30/18: NA 143 ,K 4.2 , CL 96, CO2 39 , GLU 97 , BUN 19, CR 0.4, AST 16, ALT 27, CBC w/ diff 05-30-2018 05/30/18: HB 15.7, HT 49.9 CBC w/ diff 05-30-2018 05/30/18: HB 15.7, HT 49.9 05/26/2017 SOD 140, K 4.1, CL 94, CO2 40, GL 84, BUN 14, CR 0.6 lipid panel, blood 05-19-2017 SOD 142, K 4.3, CL 97, CO2 38, GL 107, BUN 16, CR 0.7 TC 151, HDL 33, TR 101, LDL 98, AST 20, ALT 13 SOD 142, K 4.3, CL 97, CO2 38, GL 107, BUN 16, CR 0.7 TC 151, HDL 33, TR 101, LDL 98, AST 20, ALT 13 10/13/15 : VIT D 38 09/29/12 SOD 141, K 4.1, CL 104, Co2 31, GLU 112, BUN 19 ,CR 0.7, CK 125. EKG, 01/21/19: A-Fib with slow ventricular response. ABN EKG EKG, 07/17/18:Prob A-FIB. Low voltage chest leads. Poor R progression in chest leads. [facility] EKG 06/17/18: Atrial fibrilation with nonspecific T wave abnormalities. EKG 09/11/16 : Sinus rhythm normal QRS consistent with LAFb probable septal infarct Q> 40 ms in V2 Q/R > 1/[address]-T normal conclusion abnormal ECG EK05/19/17 Sinus rhythm with premature supraventricular complexes. Left axis deviation. Possible inferior infarct, age undetermined. Abnormal ECG when compared with ECG 04-DEC-2015. Premature supraventricular complexes are now present. EK12/29/14 One or more complexes are spikes. Sinus rhythm P: normal QRS: horizontal axis ST-T: normal Conclusion: normal variant of ECG. EKG 03/13/16 : sinus rhythm. premature ventricular complexes. premature supraventricular conduction. P: normal. QRS: left axis deviation. ST-T: normal. Conclusion: possibly abnormal ECG MYOCARDIAL PERF/GATED:06/30/09 No centigram evidence of myocardial ischemia or myocardial infarction. Normal cardiac wall motion. Left ventricular ejection fraction 55%. ECHO: 05/24/17 The study was technically difficult. Contrast injection was performed. Mild pulmonary HTN (PASP 35 mmHg). The left ventricle is normal in size. There is mild concentric left ventricular hypertrophy. Left ventricular systolic function is normal. Ejection Fraction =55-60%. The left atrium is mildly dilated. The mitral valve leaflets appear thickened, but open well. There is mild tricuspid regurgitation. Trace aortic regurgitation. Trace aortic regurgitation. Trace to mild pulmonic valvular regurgitation. Grade I diastolic dysfunction, (abnormal relaxation pattern). ECHO: 09/30/12 The study was technically limited. Rhythm is Atrial fibrillation . Compared to prior study, changes are noted. The interatrial septum is intact with no evidence for an atrial septal defect. Left ventricular systolic function is normal. There is mild tricuspid regurgitation. ECHO: 12/01/15 The study was technically limited. Compared to prior study, there is no significant change. There is mild tricuspid regurgitation. Ejection fraction = 55-60%. CHEST: 05/26/17 Similar appearance of bibasilar pneumonia. Left pleural effusion is similar. Cardiomegaly with mild vascular congestion. Arsenio Amaya MD [address] [place], [address], [facility] 08/04/2019 18:30:16 08/27/2019 text/html 08/27/19 Due to the CDC sands virus mandated precautions for at risk patients, this visit is being conducted via phone call. Pt does not have access to a device that would allow for face time virtual call. Patient has agreed for the physician to perform the visit in this manner. CC : Near syncope 59 year-old white man with paroxysmal atrial fibrillation, HF-pEF, hypertension, diabetic mellitus, obstructive, COPD, CHRISTINE (Bipap), is here for hospital follow-up. He was in [facility] in 08/04/19 because of near syncope, found to have hypotension and bradycardia. He was taken Diltiazem and cardizem thinking they are two different medications. He was taken off CCB and Dig. His heart rate improved. He received IV fluids on admission due to hypotensio . Later during admission lasix was resumed and he was discharged on BID dosing for a week then to resume daily as before. Saw his PCP and HR was increased. He was resumed back on Cardizem 240mg,and Digoxin 250mcg 1 week ago. Home BP: 120-130s/80-90s. HR 80-120, ave 100. He tries to be active, will walk 20-30 min/day. 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 Has stable dyspnea on exertion due to COPD; on 4L cont O2. No chest pain. No shortness of breath at rest. No dyspnea on exertion. No orthopnea. No PND's. No dizziness. No palpitation. No syncope or near syncope. No leg swelling. No nausea and vomiting. No side effects from medications. He was at [facility] In April after a syncopal event with loss of conciousness with fall. Was dx and tx for Pneumonia. EKG showed A-fib with RVR. We were never consulted to see him. Was d/c home on Cardizem 240 mg QD and to continue with his regular medications. He is currently not on any antiplatelets or anticoagulants. Had ECHO 05/13/18 showing normal LV size and function He follows Dr. Goodman for his CHRISTINE and COPD. Results from this visit, or from the past:08/06/2019: Na 145,K 4.7.Cl 97,Co2 39,Glucose 91,BUN 20,Creati 0.7,Ca 9.7 CBC:WBC 8.8,RBC 4.66,HGB 14.9,HCT 46.8,PLT 141 08/04/2019: Na 138,K 4.9,Cl 101,Co2 26,Glucose 164,BUN 23,Creati 1.2,Ca 8.7,AST 27,ALT 21,Alkaline phosphatase 70Troponin 1 <0.300,BNP 86 CMP, serum or plasma 05-30-2018 05/30/18: NA 143 ,K 4.2 , CL 96, CO2 39 , GLU 97 , BUN 19, CR 0.4, AST 16, ALT 27, CBC w/ diff 05-30-2018 05/30/18: HB 15.7, HT 49.9 CBC w/ diff 05-30-2018 05/30/18: HB 15.7, HT 49.9 05/13/18: PT 14.3, INR 1.10, PTT 34 05/26/2017 SOD 140, K 4.1, CL 94, CO2 40, GL 84, BUN 14, CR 0.6 lipid panel, blood 05-19-2017 SOD 142, K 4.3, CL 97, CO2 38, GL 107, BUN 16, CR 0.7 TC 151, HDL 33, TR 101, LDL 98, AST 20, ALT 13 SOD 142, K 4.3, CL 97, CO2 38, GL 107, BUN 16, CR 0.7 TC 151, HDL 33, TR 101, LDL 98, AST 20, ALT 13 10/13/15 : VIT D 38 09/29/12 SOD 141, K 4.1, CL 104, Co2 31, GLU 112, BUN 19 ,CR 0.7, CK 125. 08/04/2019 : EKG ; Atrial fibrillation Negative T wave abnormality Left axis deviation Abnormal ECG when compared with ECG 0f 05/13 2018,Vent rate has decreased by 7BPM Non specific T wave abnormality in inferior leads EKG, 01/21/19: A-Fib with slow ventricular response. ABN EKG EKG, 07/17/18:Prob A-FIB. Low voltage chest leads. Poor R progression in chest leads. [facility] EKG 06/17/18: Atrial fibrilation with nonspecific T wave abnormalities. EKG 09/11/16 : Sinus rhythm normal QRS consistent with LAFb probable septal infarct Q> 40 ms in V2 Q/R > 1/[address]-T normal conclusion abnormal ECG EK05/19/17 Sinus rhythm with premature supraventricular complexes. Left axis deviation. Possible inferior infarct, age undetermined. Abnormal ECG when compared with ECG 04-DEC-2015. Premature supraventricular complexes are now present. EK12/29/14 One or more complexes are spikes. Sinus rhythm P: normal QRS: horizontal axis ST-T: normal Conclusion: normal variant of ECG. EKG 03/13/16 : sinus rhythm. premature ventricular complexes. premature supraventricular conduction. P: normal. QRS: left axis deviation. ST-T: normal. Conclusion: possibly abnormal ECG MYOCARDIAL PERF/GATED:06/30/09 No centigram evidence of myocardial ischemia or myocardial infarction. Normal cardiac wall motion. Left ventricular ejection fraction 55%. 05/13/18 ECHO: E/E prime ratio is 8-15 which is in the indeterminate zone. Left ventricular systolic function appears to be normal. No obvious regional wall motion abnormalities noted. The study was technically difficult. ECHO: 05/24/17 The study was technically difficult. Contrast injection was performed. Mild pulmonary HTN (PASP 35 mmHg). The left ventricle is normal in size. There is mild concentric left ventricular hypertrophy. Left ventricular systolic function is normal. Ejection Fraction =55-60%. The left atrium is mildly dilated. The mitral valve leaflets appear thickened, but open well. There is mild tricuspid regurgitation. Trace aortic regurgitation. Trace aortic regurgitation. Trace to mild pulmonic valvular regurgitation. Grade I diastolic dysfunction, (abnormal relaxation pattern). ECHO: 09/30/12 The study was technically limited. Rhythm is Atrial fibrillation . Compared to prior study, changes are noted. The interatrial septum is intact with no evidence for an atrial septal defect. Left ventricular systolic function is normal. There is mild tricuspid regurgitation. ECHO: 12/01/15 The study was technically limited. Compared to prior study, there is no significant change. There is mild tricuspid regurgitation. Ejection fraction = 55-60%. 05/13/18 CT Chest: Bibasilar consolidation or atelectasis with accompnaying small bilateral pleural effusions. 03/12/19 DOBUTAMINE: Negative Dobutamine Stress test for ischemia. Normal LV systolic function. LVEF 61% 05/13/18 CT Head w/o IV: No acute intracranial process given motion. 08/04/2019: Chest Xray : 1) Cardiomegaly,2) scattered atelectasis and probably pulmonary edema 05/30/18 CXR: Increasing basiliar infiltrates. CHEST: 05/26/17 Similar appearance of bibasilar pneumonia. Left pleural effusion is similar. Cardiomegaly with mild vascular congestion. Mirta Mcfadden [facility], [place] - [facility] 08/27/2019 15:47:16 11/19/2020 text/html 08/27/19 11/19/20 CC : Near syncope 59 year-old white man with chronic atrial fibrillation, HF-pEF, hypertension, diabetic mellitus, obstructive, COPD, CHRISTINE (Bipap), is here for follow-up. No chest pain. No shortness of breath at rest. No dyspnea on exertion. No orthopnea. No PND's. No dizziness. No palpitation. No syncope or near syncope. No leg swelling. No nausea and vomiting. No side effects from medications. No new concerns at this time. Previously, He was in [facility] in 08/04/19 because of near syncope, found to have hypotension and bradycardia. He was taken Diltiazem and cardizem thinking they are two different medications. He was taken off CCB and Dig. His heart rate improved. He received IV fluids on admission due to hypotensio . Later during admission lasix was resumed and he was discharged on BID dosing for a week then to resume daily as before. Saw his PCP and HR was increased. He was resumed back on Cardizem 240mg,and Digoxin 250mcg 1 week ago. Home BP: 120-130s/80-90s. HR 80-120, ave 100. He tries to be active, will walk 20-30 min/day. 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 Has stable dyspnea on exertion due to COPD; on 4L cont O2. No chest pain. No shortness of breath at rest. No dyspnea on exertion. No orthopnea. No PND's. No dizziness. No palpitation. No syncope or near syncope. No leg swelling. No nausea and vomiting. No side effects from medications. He was at [facility] In April after a syncopal event with loss of conciousness with fall. Was dx and tx for Pneumonia. EKG showed A-fib with RVR. We were never consulted to see him. Was d/c home on Cardizem 240 mg QD and to continue with his regular medications. He is currently not on any antiplatelets or anticoagulants. Had ECHO 05/13/18 showing normal LV size and function He follows Dr. Goodman for his CHRISTINE and COPD. Results from this visit, or from the past:08/06/2019: Na 145,K 4.7.Cl 97,Co2 39,Glucose 91,BUN 20,Creati 0.7,Ca 9.7 CBC:WBC 8.8,RBC 4.66,HGB 14.9,HCT 46.8,PLT 141 08/04/2019: Na 138,K 4.9,Cl 101,Co2 26,Glucose 164,BUN 23,Creati 1.2,Ca 8.7,AST 27,ALT 21,Alkaline phosphatase 70Troponin 1 <0.300,BNP 86 magnesium, blood 06-26-2019 Mg 1.9 CMP, serum or plasma 05-30-2018 05/30/18: NA 143 ,K 4.2 , CL 96, CO2 39 , GLU 97 , BUN 19, CR 0.4, AST 16, ALT 27, CBC w/ diff 05-30-2018 05/30/18: HB 15.7, HT 49.9 CBC w/ diff 05-30-2018 05/30/18: HB 15.7, HT 49.9 05/13/18: PT 14.3, INR 1.10, PTT 34 05/26/2017 SOD 140, K 4.1, CL 94, CO2 40, GL 84, BUN 14, CR 0.6 lipid panel, blood 05-19-2017 SOD 142, K 4.3, CL 97, CO2 38, GL 107, BUN 16, CR 0.7 TC 151, HDL 33, TR 101, LDL 98, AST 20, ALT 13 SOD 142, K 4.3, CL 97, CO2 38, GL 107, BUN 16, CR 0.7 TC 151, HDL 33, TR 101, LDL 98, AST 20, ALT 13 10/13/15 : VIT D 38 09/29/12 SOD 141, K 4.1, CL 104, Co2 31, GLU 112, BUN 19 ,CR 0.7, CK 125. 08/04/2019 : EKG ; Atrial fibrillation Negative T wave abnormality Left axis deviation Abnormal ECG when compared with ECG 0f 05/13 2018,Vent rate has decreased by 7BPM Non specific T wave abnormality in inferior leads EKG, 01/21/19: A-Fib with slow ventricular response. ABN EKG EKG, 07/17/18:Prob A-FIB. Low voltage chest leads. Poor R progression in chest leads. [facility] EKG 06/17/18: Atrial fibrilation with nonspecific T wave abnormalities. EKG 09/11/16 : Sinus rhythm normal QRS consistent with LAFb probable septal infarct Q> 40 ms in V2 Q/R > 1/[address]-T normal conclusion abnormal ECG EK05/19/17 Sinus rhythm with premature supraventricular complexes. Left axis deviation. Possible inferior infarct, age undetermined. Abnormal ECG when compared with ECG 04-DEC-2015. Premature supraventricular complexes are now present. EK12/29/14 One or more complexes are spikes. Sinus rhythm P: normal QRS: horizontal axis ST-T: normal Conclusion: normal variant of ECG. EKG 03/13/16 : sinus rhythm. premature ventricular complexes. premature supraventricular conduction. P: normal. QRS: left axis deviation. ST-T: normal. Conclusion: possibly abnormal ECG MYOCARDIAL PERF/GATED:06/30/09 No centigram evidence of myocardial ischemia or myocardial infarction. Normal cardiac wall motion. Left ventricular ejection fraction 55%. 05/13/18 ECHO: E/E prime ratio is 8-15 which is in the indeterminate zone. Left ventricular systolic function appears to be normal. No obvious regional wall motion abnormalities noted. The study was technically difficult. ECHO: 05/24/17 The study was technically difficult. Contrast injection was performed. Mild pulmonary HTN (PASP 35 mmHg). The left ventricle is normal in size. There is mild concentric left ventricular hypertrophy. Left ventricular systolic function is normal. Ejection Fraction =55-60%. The left atrium is mildly dilated. The mitral valve leaflets appear thickened, but open well. There is mild tricuspid regurgitation. Trace aortic regurgitation. Trace aortic regurgitation. Trace to mild pulmonic valvular regurgitation. Grade I diastolic dysfunction, (abnormal relaxation pattern). ECHO: 09/30/12 The study was technically limited. Rhythm is Atrial fibrillation . Compared to prior study, changes are noted. The interatrial septum is intact with no evidence for an atrial septal defect. Left ventricular systolic function is normal. There is mild tricuspid regurgitation. ECHO: 12/01/15 The study was technically limited. Compared to prior study, there is no significant change. There is mild tricuspid regurgitation. Ejection fraction = 55-60%. 05/13/18 CT Chest: Bibasilar consolidation or atelectasis with accompnaying small bilateral pleural effusions. 03/12/19 DOBUTAMINE: Negative Dobutamine Stress test for ischemia. Normal LV systolic function. LVEF 61% 05/13/18 CT Head w/o IV: No acute intracranial process given motion. CT, angiogram, abdomen, w/ contrast 05-20-2017 CT CHEST W/ CONTRAST: 05/20/17 No PE. Patchy areas of dense bibasilar consolidation nonspecific for edema versus 08/04/2019: Chest Xray : 1) Cardiomegaly,2) scattered atelectasis and probably pulmonary edema 05/30/18 CXR: Increasing basiliar infiltrates. CHEST: 05/26/17 Similar appearance of bibasilar pneumonia. Left pleural effusion is similar. Cardiomegaly with mild vascular congestion. Daria Jon [facility], [place] - [facility] 11/19/2020 13:09:09 06/27/2022 text/html 06/27/22CC : Car diac follow up a fib and dyspnea on [id number] year-old white man with chronic atrial fibrillation, HF-pEF, hypertension, diabetic mellitus, obstructive, COPD, CHRISTINE (Bipap), is here for follow-up. He was last seen in the clinic on 11/19/20, since then he is reporting shoulder pain that is radiated to chest pain. He is reporting having more a fib. He has not been seen for the last 2 years. *Last LDL was 89 done on 05-18-2017.Pt takes simvastatin 40 mg. He denies ER visits and hospitalizations since he was last seen. Today reports:Denies chest pain.Denies shortness of breath at rest. Has mild dyspnea on exertion.No orthopnea. No PNDs.Denies heart palpitations.Denies dizziness. Denies syncope or near syncope.No ankle or leg edema.No major bleeding events.No reported side effects from medications. Taking medications as prescribed with no missed doses.Denies snoring, daytime somnolence and AM headache.*Last LDL was 89 done on 05-18-2017.Pt takes simvastatin 40 mg. Previously:He was in [facility] in 08/04/19 because of near syncope, found to have hypotension and bradycardia. He was taken Diltiazem and cardizem thinking they are two different medications. He was taken off CCB and Dig. His heart rate improved. He received IV fluids on admission due to hypotensio . Later during admission lasix was resumed and he was discharged on BID dosing for a week then to resume daily as before. Saw his PCP and HR was increased. He was resumed back on Cardizem 240mg,and Digoxin 250mcg 1 week ago. Home BP: 120-130s/80-90s. HR 80-120, ave 100. He tries to be active, will walk 20-30 min/day. 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 Has stable dyspnea on exertion due to COPD; on 4L cont O2. He was at [facility] In April after a syncopal event with loss of conciousness with fall. Was dx and tx for Pneumonia. EKG showed A-fib with RVR. We were never consulted to see him. Was d/c home on Cardizem 240 mg QD and to continue with his regular medications. He is currently not on any antiplatelets or anticoagulants. *Had ECHO 05/13/18 showing normal LV size and function Results from this visit, or from the past:08/06/2019: Na 145,K 4.7.Cl 97,Co2 39,Glucose 91,BUN 20,Creati 0.7,Ca 9.7 CBC:WBC 8.8,RBC 4.66,HGB 14.9,HCT 46.8,PLT 141 08/04/2019: Na 138,K 4.9,Cl 101,Co2 26,Glucose 164,BUN 23,Creati 1.2,Ca 8.7,AST 27,ALT 21,Alkaline phosphatase 70Troponin 1 <0.300,BNP 86 magnesium, blood 06-26-2019 Mg 1.9 CMP, serum or plasma 05-30-2018 05/30/18: NA 143 ,K 4.2 , CL 96, CO2 39 , GLU 97 , BUN 19, CR 0.4, AST 16, ALT 27, CBC w/ diff 05-30-2018 05/30/18: HB 15.7, HT 49.9 CBC w/ diff 05-30-2018 05/30/18: HB 15.7, HT 49.9 05/13/18: PT 14.3, INR 1.10, PTT 34 05/26/2017 SOD 140, K 4.1, CL 94, CO2 40, GL 84, BUN 14, CR 0.6 lipid panel, blood 05-19-2017 SOD 142, K 4.3, CL 97, CO2 38, GL 107, BUN 16, CR 0.7 TC 151, HDL 33, TR 101, LDL 98, AST 20, ALT 13 SOD 142, K 4.3, CL 97, CO2 38, GL 107, BUN 16, CR 0.7 TC 151, HDL 33, TR 101, LDL 98, AST 20, ALT 13 10/13/15 : VIT D 38 09/29/12 SOD 141, K 4.1, CL 104, Co2 31, GLU 112, BUN 19 ,CR 0.7, CK 125. 08/04/2019 : EKG ; Atrial fibrillation Negative T wave abnormality Left axis deviation Abnormal ECG when compared with ECG 0f 05/13 2018,Vent rate has decreased by 7BPM Non specific T wave abnormality in inferior leads EKG, 01/21/19: A-Fib with slow ventricular response. ABN EKG EKG, 07/17/18:Prob A-FIB. Low voltage chest leads. Poor R progression in chest leads. [facility] EKG 06/17/18: Atrial fibrilation with nonspecific T wave abnormalities. EKG 09/11/16 : Sinus rhythm normal QRS consistent with LAFb probable septal infarct Q> 40 ms in V2 Q/R > 1/[address]-T normal conclusion abnormal ECG EK05/19/17 Sinus rhythm with premature supraventricular complexes. Left axis deviation. Possible inferior infarct, age undetermined. Abnormal ECG when compared with ECG 04-DEC-2015. Premature supraventricular complexes are now present. EK12/29/14 One or more complexes are spikes. Sinus rhythm P: normal QRS: horizontal axis ST-T: normal Conclusion: normal variant of ECG. EKG 03/13/16 : sinus rhythm. premature ventricular complexes. premature supraventricular conduction. P: normal. QRS: left axis deviation. ST-T: normal. Conclusion: possibly abnormal ECG MYOCARDIAL PERF/GATED:06/30/09 No centigram evidence of myocardial ischemia or myocardial infarction. Normal cardiac wall motion. Left ventricular ejection fraction 55%. 05/13/18 ECHO: E/E prime ratio is 8-15 which is in the indeterminate zone. Left ventricular systolic function appears to be normal. No obvious regional wall motion abnormalities noted. The study was technically difficult. ECHO: 05/24/17 The study was technically difficult. Contrast injection was performed. Mild pulmonary HTN (PASP 35 mmHg). The left ventricle is normal in size. There is mild concentric left ventricular hypertrophy. Left ventricular systolic function is normal. Ejection Fraction =55-60%. The left atrium is mildly dilated. The mitral valve leaflets appear thickened, but open well. There is mild tricuspid regurgitation. Trace aortic regurgitation. Trace aortic regurgitation. Trace to mild pulmonic valvular regurgitation. Grade I diastolic dysfunction, (abnormal relaxation pattern). ECHO: 09/30/12 The study was technically limited. Rhythm is Atrial fibrillation . Compared to prior study, changes are noted. The interatrial septum is intact with no evidence for an atrial septal defect. Left ventricular systolic function is normal. There is mild tricuspid regurgitation. ECHO: 12/01/15 The study was technically limited. Compared to prior study, there is no significant change. There is mild tricuspid regurgitation. Ejection fraction = 55-60%. 05/13/18 CT Chest: Bibasilar consolidation or atelectasis with accompnaying small bilateral pleural effusions. 03/12/19 DOBUTAMINE: Negative Dobutamine Stress test for ischemia. Normal LV systolic function. LVEF 61% 05/13/18 CT Head w/o IV: No acute intracranial process given motion. CT, angiogram, abdomen, w/ contrast 05-20-2017 CT CHEST W/ CONTRAST: 05/20/17 No PE. Patchy areas of dense bibasilar consolidation nonspecific for edema versus 08/04/2019: Chest Xray : 1) Cardiomegaly,2) scattered atelectasis and probably pulmonary edema 05/30/18 CXR: Increasing basiliar infiltrates. CHEST: 05/26/17 Similar appearance of bibasilar pneumonia. Left pleural effusion is similar. Cardiomegaly with mild vascular congestion. [facility] [place] [facility] 06/27/2022 18:23:12 09/21/2022 text/html 09/21/22CC : Car diac follow up, dyspnea on vlugaaep62 year-old white man with chronic atrial fibrillation, HF-pEF, hypertension, diabetic mellitus, obstructive, COPD, and CHRISTINE (Bipap), is here for 1 month follow-up. He was last seen in the clinic on 06/27/22, since then he is doing better nowHe denies ER visits and hospitalizations since he was last seen. Denies chest pain.Denies shortness of breath at rest. Has mild dyspnea on exertion.No orthopnea. No PNDs.Denies heart palpitations.Denies dizziness. Denies syncope or near syncope.No ankle or leg edema.No major bleeding events.No reported side effects from medications. Taking medications as prescribed with no missed doses.Denies snoring, daytime somnolence and AM headache.*Last LDL was 98 done on 05/18/17.Pt takes simvastatin 40 mg. Previously:He is reporting shoulder pain that is radiated to chest pain.He is reporting having more a fib. He was in [facility] in 08/04/19 because of near syncope, found to have hypotension and bradycardia. He was taken Diltiazem and cardizem thinking they are two different medications. He was taken off CCB and Dig. His heart rate improved. He received IV fluids on admission due to hypotension . Later during admission lasix was resumed and he was discharged on BID dosing for a week then to resume daily as before. Saw his PCP and HR was increased. He was resumed back on Cardizem 240mg,and Digoxin 250mcg 1 week ago. Home BP: 120-130s/80-90s. HR 80-120, ave 100. He tries to be active, will walk 20-30 min/day. 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 Has stable dyspnea on exertion due to COPD; on 4L cont O2. He was at [facility] In April after a syncopal event with loss of conciousness with fall. Was dx and tx for Pneumonia. EKG showed A-fib with RVR. We were never consulted to see him. Was d/c home on Cardizem 240 mg QD and to continue with his regular medications. He is currently not on any antiplatelets or anticoagulants. *Had ECHO 05/13/18 showing normal LV size and function Results from this visit, or from the past:08/06/2019: Na 145,K 4.7.Cl 97,Co2 39,Glucose 91,BUN 20,Creati 0.7,Ca 9.7 CBC:WBC 8.8,RBC 4.66,HGB 14.9,HCT 46.8,PLT 141 08/04/2019: Na 138,K 4.9,Cl 101,Co2 26,Glucose 164,BUN 23,Creati 1.2,Ca 8.7,AST 27,ALT 21,Alkaline phosphatase 70Troponin 1 <0.300,BNP 86 magnesium, blood 06-26-2019 Mg 1.9 CMP, serum or plasma 05-30-2018 05/30/18: NA 143 ,K 4.2 , CL 96, CO2 39 , GLU 97 , BUN 19, CR 0.4, AST 16, ALT 27, CBC w/ diff 05-30-2018 05/30/18: HB 15.7, HT 49.9 CBC w/ diff 05-30-2018 05/30/18: HB 15.7, HT 49.9 05/13/18: PT 14.3, INR 1.10, PTT 34 05/26/2017 SOD 140, K 4.1, CL 94, CO2 40, GL 84, BUN 14, CR 0.6 lipid panel, blood 05-19-2017 SOD 142, K 4.3, CL 97, CO2 38, GL 107, BUN 16, CR 0.7 TC 151, HDL 33, TR 101, LDL 98, AST 20, ALT 13 SOD 142, K 4.3, CL 97, CO2 38, GL 107, BUN 16, CR 0.7 TC 151, HDL 33, TR 101, LDL 98, AST 20, ALT 13 10/13/15 : VIT D 38 09/29/12 SOD 141, K 4.1, CL 104, Co2 31, GLU 112, BUN 19 ,CR 0.7, CK 125. 08/04/2019 : EKG ; Atrial fibrillation Negative T wave abnormality Left axis deviation Abnormal ECG when compared with ECG 0f 05/13 2018,Vent rate has decreased by 7BPM Non specific T wave abnormality in inferior leads EKG, 01/21/19: A-Fib with slow ventricular response. ABN EKG EKG, 07/17/18:Prob A-FIB. Low voltage chest leads. Poor R progression in chest leads. [facility] EKG 06/17/18: Atrial fibrilation with nonspecific T wave abnormalities. EKG 09/11/16 : Sinus rhythm normal QRS consistent with LAFb probable septal infarct Q> 40 ms in V2 Q/R > 1/[address]-T normal conclusion abnormal ECG EK05/19/17 Sinus rhythm with premature supraventricular complexes. Left axis deviation. Possible inferior infarct, age undetermined. Abnormal ECG when compared with ECG 04-DEC-2015. Premature supraventricular complexes are now present. EK12/29/14 One or more complexes are spikes. Sinus rhythm P: normal QRS: horizontal axis ST-T: normal Conclusion: normal variant of ECG. EKG 03/13/16 : sinus rhythm. premature ventricular complexes. premature supraventricular conduction. P: normal. QRS: left axis deviation. ST-T: normal. Conclusion: possibly abnormal ECG MYOCARDIAL PERF/GATED:06/30/09 No centigram evidence of myocardial ischemia or myocardial infarction. Normal cardiac wall motion. Left ventricular ejection fraction 55%. 05/13/18 ECHO: E/E prime ratio is 8-15 which is in the indeterminate zone. Left ventricular systolic function appears to be normal. No obvious regional wall motion abnormalities noted. The study was technically difficult. ECHO: 05/24/17 The study was technically difficult. Contrast injection was performed. Mild pulmonary HTN (PASP 35 mmHg). The left ventricle is normal in size. There is mild concentric left ventricular hypertrophy. Left ventricular systolic function is normal. Ejection Fraction =55-60%. The left atrium is mildly dilated. The mitral valve leaflets appear thickened, but open well. There is mild tricuspid regurgitation. Trace aortic regurgitation. Trace aortic regurgitation. Trace to mild pulmonic valvular regurgitation. Grade I diastolic dysfunction, (abnormal relaxation pattern). ECHO: 09/30/12 The study was technically limited. Rhythm is Atrial fibrillation . Compared to prior study, changes are noted. The interatrial septum is intact with no evidence for an atrial septal defect. Left ventricular systolic function is normal. There is mild tricuspid regurgitation. ECHO: 12/01/15 The study was technically limited. Compared to prior study, there is no significant change. There is mild tricuspid regurgitation. Ejection fraction = 55-60%. 05/13/18 CT Chest: Bibasilar consolidation or atelectasis with accompnaying small bilateral pleural effusions. 03/12/19 DOBUTAMINE: Negative Dobutamine Stress test for ischemia. Normal LV systolic function. LVEF 61% 05/13/18 CT Head w/o IV: No acute intracranial process given motion. CT, angiogram, abdomen, w/ contrast 05-20-2017 CT CHEST W/ CONTRAST: 05/20/17 No PE. Patchy areas of dense bibasilar consolidation nonspecific for edema versus 08/04/2019: Chest Xray : 1) Cardiomegaly,2) scattered atelectasis and probably pulmonary edema 05/30/18 CXR: Increasing basiliar infiltrates. CHEST: 05/26/17 Similar appearance of bibasilar pneumonia. Left pleural effusion is similar. Cardiomegaly with mild vascular congestion. Arsenio Amaya MD [address] [place], [address], [facility] 09/21/2022 16:34:44
--- OUTSIDE RECORDS SUMMARY | 2024-06-26 13:34 | XMS_ITS | Referral Summary ---
Author Organization [place] [id number] [facility] Address [address] [place] [address] Care Team Providers Care Cattle Killer Name Role Phone No, Physician Unavailable Vangie Valentine MD Primary Care Provider [phone] Allergies Active Allergy Reactions Criticality Noted Date [...] PELVIS W CONTRAST Routine 05/13/2018 12:00 AM BACKGROUND INVESTIGATOR from Last 3 Months or Most Recently Relevant to Health Maintenance Results * CT Abdomen Pelvis W Contrast (05/13/2018 12:00 AM BACKGROUND INVESTIGATOR) Anatomical Region Laterality Modality Body N/A Computed Tomogra phy 05/13/2018 Impressions 05/13/2018 2:50 AM BACKGROUND INVESTIGATOR ??No acute findings in the abdomen or pelvis. THIS IS AN ELECTRONICALLY VERIFIED FINAL REPORT 05/13/2018 2:47 AM - Electronically signed by Mario Garcia M.D. RW D: ??05/13/2018 2:47 AM T: Report ID: [id number] Reading Location: ??[id number] [EOD] Narrative 05/13/2018 2:50 AM BACKGROUND INVESTIGATOR EXAM DESCRIPTION: ??CT Abd/Pelvis W IV Contrast [...] Mario Garcia M.D. RW T: Report ID: [id number] Reading Location: [place] [address] [EOD] Richardson Kilgore NP IMG CT PROCEDURES Final R esult from Last 3 Months or Most Recently Relevant to Health Maintenance Insurance IDFL [facility] IDPA MEDICARE [employer] [facility] MEDIC[facility] Address: [address] [address] [place] [address] Care Teams Cattle Killer Relationship Specialty Start Date End Date Vangie Valentine MD [address] [place] [id number] PCP - General Internal Medicine 06/11/19 No, Physician 05/18/18
--- OUTSIDE RECORDS SUMMARY | 2024-06-26 13:34 | XMS_ITS | Referral Summary ---
Author Organization [facility] Address [address] [place] [address] Care Team Providers Care Industry Operations Investigator Name Role Phone Vangie Valentine MD Primary Care Provider Source Comments [facility],non-owned Affiliates and Associated Physician Practices is amultiple site organization consisting of ambulatory clinics and hospital sitesin [place], [place], [place] and [place]. This disclosure is being madepursuant to the Care Everywhere program and may not contain all information available regarding this patient. Last updated 18.[facility] Allergies Active Allergy Reactions Criticality Noted Date [...] Comments Blood Pressure 135/97 06/28/2023 8:35 AM RAIL SETTER Pulse 90 06/28/2023 8:35 AM RAIL SETTER Temperature 36.6 ??C (97.9 ??F) 06/28/2023 8:35 AM CS T Respiratory Rate - - Oxygen Saturation - - Inhaled Oxygen Concentration - - Weight 135.2 kg (298 lb) 06/28/2023 8:35 AM RAIL SETTER Height 182.9 cm (6') 06/28/2023 8:35 AM RAIL SETTER Body Mass Index 40.42 06/28/2023 8:35 AM RAIL SETTER Plan of Treatment Not on file Care Teams Industry Operations Investigator Relationship Specialty Start Date End Date Vangie Valentine MD [address] [place] [phone] PCP - General 08/18/21
--- OUTSIDE RECORDS SUMMARY | 2024-06-26 13:34 | XMS_ITS | Clinical Summary ---
Author Organization [place] [id number] [facility] Address [address] [place] [address] Care Team Providers Care Insurance Counsel Name Role Phone No, Physician Unavailable Vangie Valentine MD Primary Care Provider [phone] Allergies Active Allergy Reactions Criticality Noted Date [...] Medical History Medical History Date Comments Diabetes ([facility]) Neuropathy ([facility]) Hypertension A-fib ([facility]) ([facility]) CHF (congestive heart failure) ([facility]) ([facility]) Family History Medical History Relation Name Comments [...] PELVIS W CONTRAST Routine 05/13/2018 12:00 AM CARPENTRY SUPERVISOR from Last 3 Months or Most Recently Relevant to Health Maintenance Results * CT Abdomen Pelvis W Contrast (05/13/2018 12:00 AM CARPENTRY SUPERVISOR) Anatomical Region Laterality Modality Body N/A Computed Tomogra phy 05/13/2018 Impressions 05/13/2018 2:50 AM CARPENTRY SUPERVISOR ??No acute findings in the abdomen or pelvis. THIS IS AN ELECTRONICALLY VERIFIED FINAL REPORT 05/13/2018 2:47 AM - Electronically signed by Mario Garcia M.D. RW D: ??05/13/2018 2:47 AM T: Report ID: [id number] Reading Location: ??[id number] [EOD] Narrative 05/13/2018 2:50 AM CARPENTRY SUPERVISOR EXAM DESCRIPTION: ??CT Abd/Pelvis W IV [...] Mario Garcia M.D. RW T: Report ID: [id number] Reading Location: [place] [address] [EOD] Richardson Kilgore NP IMG CT PROCEDURES Final R esult from Last 3 Months or Most Recently Relevant to Health Maintenance Insurance [employer] Care Teams Insurance Counsel Relationship Specialty Start Date End Date Vangie Valentine MD [address] [place] [address] [address] [place] [address] PCP - General Internal Medicine 06/11/19 No, Physician 05/18/18
--- OUTSIDE RECORDS SUMMARY | 2024-06-26 13:34 | XMS_ITS | Clinical Summary ---
Author Organization [facility] Address [address] [place] [address] Care Team Providers Care Vessel Welder Name Role Phone Vangie Valentine MD Primary Care Provider Source Comments [facility],non-owned Affiliates and Associated Physician Practices is amultiple site organization consisting of ambulatory clinics and hospital sitesin [place], [place], [place] and [place]. This disclosure is being madepursuant to the Care Everywhere program and may not contain all information available regarding this patient. Last updated 18.[facility] Allergies Active Allergy Reactions Criticality Noted Date [...] Comments Blood Pressure 135/97 06/28/2023 8:35 AM CEREAL POPPER Pulse 90 06/28/2023 8:35 AM CEREAL POPPER Temperature 36.6 ??C (97.9 ??F) 06/28/2023 8:35 AM CS T Respiratory Rate - - Oxygen Saturation - - Inhaled Oxygen Concentration - - Weight 135.2 kg (298 lb) 06/28/2023 8:35 AM CEREAL POPPER Height 182.9 cm (6') 06/28/2023 8:35 AM CEREAL POPPER Body Mass Index 40.42 06/28/2023 8:35 AM CEREAL POPPER Plan of Treatment Health Maintenance Due Date [...] age to complete this topic Care Teams Vessel Welder Relationship Specialty Start Date End Date Vangie Valentine MD [address] [place] [id number] PCP - General 08/18/21
--- OUTSIDE RECORDS SUMMARY | 2024-06-26 13:34 | XMS_ITS | Continuity of Care Document ---
Author Organization [facility] Address [address] [place] [address] Phone Care Team Providers Care Finished Goods Inspector Name Role Phone Inge Ramirez MD Unavailable [...] A VENOUS GLUCOSE METHOD. Test performed at [facility] [place] [id number]: KAILEE SAUCEDA MT([facility]) Panel Description: POC HEMOGLOBIN A1C Final POC HEMOGLOBIN A1C 2008 13:51:0 0 6.1 % OF TOTAL HGB H Final NON-DIABETC <6.0 % Test performed at [facility] [facility] [address] [place] [address]Nvtbghro: KAILEE SAUCEDA MT([facility]) Advance Directives Directive Yes / [...] Diagnoses Date Provider Providers Copied on Encounter [facility], [address], [place], [place], [id number] , tel: [phone] [facility] abnormal glucose (chief complaint) Screening for diabetes mellitus [address], [place], [place], [id number] , [place]. tel: [phone] OFFICE OUTPT NEW 30 MIN [facility], [address], [place], [place], [id number] , tel: [phone] [facility] sleep apnea (chief complaint) back pain (chief complaint) breathing problems (chief complaint) stomach bulging (chief complaint) left knee pain (chief complaint) Routine general medical examination at a health care facilityOverweight and obesityInsomnia with sleep apnea, unspecifiedShortness of breathRoutine general medical examination at a health care facility [address], [place], [place], [address] , [place]. tel:[phone] Family History Family Member Type Diagnosis Age At Onset Mother Problem (finding) asthma Father Problem (finding) asthma Father Problem (finding) hypertension Payers Payer name Insurance type Covered democrat ID Authoriza tion(s) No Information Social History [...] Status Goal ALT. Due on due Goal Urinalysis. Due on due Goal Lipid Panel. Due on due Goal PSA. Due on due Goal AST. Due on due Goal BMP fasting. Due on due Referral Referred To: [address], [address] Ordered: Referral: [facility]. Radiology. Diagnostic testing. ordered Future Order: [...]
--- OUTSIDE RECORDS SUMMARY | 2024-06-26 13:34 | XMS_ITS | Patient Health Summary ---
Author Organization [facility] Address [address] [place] [address] Care Team Providers Care Carbon Accountant Name Role Phone Vangie Valentine MD Primary Care Provider [phone] Note from [facility],non-owned Affiliates and Associated Physician Practices is amultiple site organization consisting of ambulatory clinics and hospital sitesin [place], [place], [place] and [place]. This disclosure is being madepursuant to the Care Everywhere program and may not contain all information available regarding this patient. Last updated 18.[facility] Allergies * Lidocaine(Swelling) -Medium Criticality Medications [...] Comments Blood Pressure 135/97 06/28/2023 8:35 AM NURSE'S COMPANION Pulse 90 06/28/2023 8:35 AM NURSE'S COMPANION Temperature 36.6 ??C (97.9 ??F) 06/28/2023 8:35 AM CS T Respiratory Rate - - Oxygen Saturation - - Inhaled Oxygen Concentration - - Weight 135.2 kg (298 lb) 06/28/2023 8:35 AM NURSE'S COMPANION Height 182.9 cm (6') 06/28/2023 8:35 AM NURSE'S COMPANION Body Mass Index 40.42 06/28/2023 8:35 AM NURSE'S COMPANION Care Teams Carbon Accountant Relationship Specialty Start Date End Date Vangie Valentine MD [address] [place] [address] PCP - General 08/18/21
--- OUTSIDE RECORDS SUMMARY | 2024-06-26 13:34 | XMS_ITS | Continuity of Care Document ---
Author Organization [facility] Address [address] [place] [address] Phone Care Team Providers Care Decorator Hand Name Role Phone Tony Mchugh MD Unavailable Unavailable Allergies, Adverse Reactions, Alerts Substance Reaction Status Criticality No Known Allergies Active No Inform ation Medications Medication Instructions Dosage Effective Dates (start - stop) Status Comments Coreg 6.25 mg tablet take 1 Tablet by or al route 2 times every day with food 6.25 MG - Active lisinopril 10 mg tablet take 1 tablet by oral route every day 10 MG - Active Cardizem CD 240 mg capsule,extended release take 1 capsule by oral route every day 240 MG - Active Procedures Procedure Date OFFICE/OUTPATIENT VISIT, EST PREV VISIT, [facility], AGE 40-64 Advance Directives Directive Yes / No Effective Date File Name No Information Encounters Encounter Description Practice Location Reason(s) For Visit Diagnoses Date Provider Providers Copied on Encounter OFFICE/OUTPA TIENT VISIT, EST [facility], [place], [address] [place] [address], [id number], tel:[phone] [facility] [place] HTN (chief complaint) urinary frequency (chief complaint) urinary frequency (chief complaint) Afib (chief complaint) Dietary surveillance and counselingBP - High blood pressureSleep apneaAtrial fibrillationUrinary frequency [address] [place], [place], [id number] , [place]. tel:[phone] Referring Provider: Tony Mchugh, [address] [place], [place], [id number]. tel:[phone] PREV VISIT, NEW, AGE 40-64 [facility], [address], [place], [place], [id number], [place] tel:[phone] [facility] Medicine Physical (chief complaint) Routine Medical ExamDietary surveillance and counselingRoutine Medical Exam 5 Jeison Jimenez. [address], [address], [place], [place], [id number] , [place]. tel:[phone] Family History Family Member Type Diagnosis Age At Onset Father Problem (finding) Coronary artery disease 75 Mother Problem (finding) COPD Brother Problem (finding) Alive and well Payers Payer name Insurance type Covered democrat [...] Type Assessment Date assessment Dietary surveillance and risk reduction counselor ing assessment BP - High blood pressure 2014 assessment Sleep apnea assessment Atrial fibrillation assessment Urinary frequency Mental Status Date Cognitive Assessment Orientation - [place] ed to time, place, person, situation.
--- NOTE | 2024-06-26 14:10 | ECG_ITS ---
Test Date: 2024-06-26 14:22:24 Measurements Intervals [place] Rate: 83 P: 0 CT: 0 QRS: -62 QRSD: 164 T: 60 QT: 354 QTc: 416 Interpretive Statements ATRIAL FIBRILLATION RIGHT BUNDLE BRANCH BLOCK [120+ ms QRS DURATION, UPRIGHT V1, 40+ ms S IN I/aVL/V4/V5/V6] LEFT ANTERIOR FASCICULAR BLOCK [QRS AXIS <= -45, QR IN I, RS IN II] No previous ECG available for comparison Electronically Signed On 06-26-2024 14:34:23 PIPE BLANKS CUT OFF SAW OPERATOR by Medhat Ryder M.D.
--- NOTE | 2024-06-26 14:11 | ED.RECABL ---
HPI - Recheck/Abnormal Lab/Rx General Chief Complaint: Recheck/Abnormal Lab/Rx Stated Complaint: heavy chest Time Seen by Provider: 06/26/24 14:11 Focused HPI: This is a 63 year old male that presents to the ER for left sided chest pain, cold symptoms. Chest pain intermittent since yesterday. He was at the surgery center to get blood work pre-op for hernia repair. He told them about his symptoms which prompted them to send him to the ER. Reports the pain is achy. Reports history of afib. Reports a cough, shortness of breath, fatigue and fevers. GENERAL: Well-appearing, well-nourished, and in no acute distress. HEAD: Normocephalic, atraumatic. CHEST: Clear to auscultation. ?No respiratory distress. HEART: Regular rate and rhythm.? NEURO: ?Alert and oriented x3. Patient screened in triage and initial orders placed.? ?Additional care and disposition to be based upon?diagnostic testing and treatment. Related Data Home Medications ?Medication ?Instructions ?Recorded ?Confirmed ?Last Taken ?Type gabapentin 800 mg tablet 800 mg PO BID 09/10/23 06/23/24 Unknown History pioglitazone 45 mg tablet 45 mg PO DAILY 09/10/23 06/23/24 Unknown History empagliflozin 10 mg tablet 10 mg PO DAILY 06/23/24 06/23/24 Unknown History (Jardiance) furosemide 40 mg tablet 40 mg PO PRN 06/23/24 06/23/24 Unknown History simvastatin 40 mg tablet 40 mg PO QPM 06/23/24 06/23/24 Unknown History Allergies Allergy/AdvReac Type Severity Reaction Status Date / Time lidocaine Allergy Anaphylaxis Verified 06/26/24 12:48 amoxicillin AdvReac Diarrhea Verified 06/26/24 12:48 Opioids - Morphine Analogues AdvReac Nightmare/V Verified 06/26/24 12:48 IOLENT Review of Systems Review of Systems: CONSTITUTIONAL: Reports fever ENT: Reports rhinorrhea, congestion CARDIOVASCULAR: Reports chest pain RESPIRATORY: Reports cough and dyspnea. All systems reviewed & are unremarkable except as noted in HPI and below PMFSH Past Medical History Medical History Kidney disease Hypertension Heart disease Heart attack Migraine Headache GERD (gastroesophageal reflux disease) Diabetes CHF (congestive heart failure) COPD (chronic obstructive pulmonary disease) Arthritis Anxiety Asthma Allergies History of diabetes mellitus History of gastroesophageal reflux (GERD) History of COPD History of atrial fibrillation Family History Family History Father Alcoholism Heart disease Hypertension Mother Heart disease Asthma Sibling Alcoholism Asthma Diabetes mellitus Hypertension Heart disease Cerebrovascular accident Thyroid disorder Grandparent Asthma Hypertension Heart disease Son Alcoholism Asthma Hypertension Social History Social History Smoking status: Never smoker Second hand tobacco smoke exposure: No Alcohol intake: never Substance use: never Substance use type: does not use Do You Feel Safe in your Home?: Yes Lack of Transportation: No Lack of Food: Never True Current Housing: Decline to Answer Concerned About Future Housing: Decline to Answer Difficulty Paying Gas/Electric Bills: No Difficulty Paying for Meds: No Currently Unemployed: No Education: High School Diploma/GED Difficulty w/ Childcare or Family Care: No Living arrangements: with family Occupation/Education: retired Sexual Orientation (if Verbalized by the Patient): Straight or Heterosexual Spiritual care concerns: No Agree to blood products: No Exam Narrative: GENERAL: Well-appearing, well-nourished, and in no acute distress. HEAD: Normocephalic, atraumatic. EYES: EOMI. CHEST: Clear to auscultation. No respiratory distress. No wheezes rales or rhonchi HEART: Regular rate and rhythm. No murmur heard. Normal peripheral pulses. EXTREMITIES: Normal range of motion. No edema. SKIN: Warm, dry, no rash. NEURO: No focal deficits. Alert and oriented x3. PSYCH: Normal mood and affect Course Course Emergency Course: Patient updated on his workup thus far. I did inform him to fully rule out there wasn't an issue with his heart we would like to keep him for further testing. He does not wish to stay at this time. Vital Signs Vital signs: Vital Signs Temperature 97.6 F 06/26/24 12:53 Pulse Rate 94 06/26/24 12:53 Respiratory Rate 16 06/26/24 12:53 Blood Pressure 112/63 06/26/24 12:53 Pulse Oximetry 94 06/26/24 12:53 Temperature 97.6 F 06/26/24 12:53 Pulse Rate 94 06/26/24 12:53 Respiratory Rate 16 06/26/24 12:53 Blood Pressure 112/63 06/26/24 12:53 Pulse Oximetry 94 06/26/24 12:53 MDM - Recheck/Abnormal Lab/Rx MDM Narrative Medical decision making narrative: Patient presents to the emergency department for chest pain, shortness of breath, cough, fevers. He is afebrile and nontoxic appearing. Oxygen saturation is normal on room air. CBC and metabolic panel without concerning findings. Patient is influenza A positive. EKG does not appear changed. His baseline troponin is negative. Chest x-ray without acute cardiopulmonary abnormality. Patient requesting to leave. Patient updated on his workup thus far. I did inform him to fully rule out there wasn't an issue with his heart we would like to keep him for further testing. He does not wish to stay at this time. Will be prescribed Tamiflu. Instructed to return at any time for further evaluation and management Differential Diagnosis Differential diagnosis: Likely other (Influenza, COVID, pneumonia) Lab Data Attestation: I reviewed the patient's lab results. 06/26/24 14:25 06/26/24 14:25 Labs: Lab Results 06/26/24 Range/Units 14:25 WBC 6.6 (4.5-10.0) K/mm3 RBC 4.76 (4.6-6.20) M/mm3 Hgb 15.0 (14.0-18.0) g/dL Hct 47.8 (42.0-52.0) % MCV 100.4 H (80-100) fl MCH 31.5 (26-34) pg MCHC 31.4 L (32-36) g/dl RDW 13.6 (11.5-14.5) % Plt Count 113 L (150-375) k/mm3 MPV 11.7 H (7.4-10.4) fl Immature Gran % (Auto) 0.5 (0-0.5) % Neut % (Auto) 66.2 (45.5-73.1) % Lymph % (Auto) 14.1 L (18.3-44.2) % [place] % (Auto) 18.8 H (2.6-8.5) % Eos % (Auto) 0.2 (0-4.4) % Baso % (Auto) 0.2 (0.2-1.2) % Lymph # (Auto) 0.93 (0.9-3.2) K/mm3 [place] # (Auto) 1.2 H (0.1-0.6) K/mm3 Eos # (Auto) 0.0 (0-0.3) K/mm3 Baso # (Auto) 0.0 (0.0-0.1) K/mm3 Abs Immat Gran (auto) 0.03 (0.00-0.031) K/mm3 Absolute Neuts (auto) 4.4 (1.3-6.7) K/mm3 Absolute Nucleated RBC 0.000 (0.0-0.012) K/mm3 Nucleated RBC % 0.0 (0.0-0.2) % % Immature Plt Fraction 9.4 (0.9-11.2) % PT 15.2 H (11.1-14.7) Seconds INR 1.2 APTT 39.2 H (22.3-36.8) Seconds Sodium 140 (137-145) mmol/L Potassium 4.0 (3.4-5.0) mmol/L Chloride 96 L (98-107) mmol/L Carbon Dioxide 35 H (22-30) mmol/L Anion Gap 9 (4-12) mmol/L BUN 32 H (9-20) mg/dL Creatinine 1.03 (0.7-1.3) mg/dL Estim Creat Clear Calc Not Reportable Estimated GFR > 60 (59 - ) Glucose 102 (65-110) mg/dL Calcium 9.7 (8.4-10.2) mg/dL Total Bilirubin 0.8 (0.2-1.3) mg/dL AST 38 (17-59) U/L ALT 29 (6-50) U/L Alkaline Phosphatase 79 (38-126) U/L Troponin I 0.015 (0.000-0.034) ng/mL Total Protein 8.0 (6.3-8.2) g/dL Albumin 4.3 (3.5-5.1) g/dL Lipase 75 (23-300) U/L Influenza A (RT-PCR) Positive A (Negative) Influenza B (RT-PCR) Negative (Negative) RSV (RT-PCR) Negative (Negative) SARS-CoV-2 RNA (RT-PCR) Negative (Negative) Imaging Data Radiologist's impression: ITS Impressions Chest X-Ray 06/26/24 14:58 Impression: 1: No acute cardiopulmonary disease. ECG Data EKG #1: ECG completion date: 06/26/24 EKG Interpretation: atrial fibrillation, RBBB and no acute changes (compared to EKG 10/2023) Critical Care Time Critical Care Time Critical Care Time: No Discharge Plan Discharge Clinical Impression: Influenza A Patient Disposition: Home, Self-Care Condition: Stable Instructions: Influenza (ED) Additional Instructions: Return to the emergency department for worsening symptoms, or any other concerns Remain well-hydrated, get plenty of rest. Take Tylenol or Motrin [id number] for pain as needed. Flonase for nasal congestion. Zyrtec for runny nose. Lozenges or Chloraseptic spray for sore throat. Take Oseltamivir as prescribed Follow up with primary care doctor Patient Language: [place] Tim[place]se Prescriptions: New oseltamivir 75 mg capsule 75 mg PO Q12H 5 Days Qty: 10 0RF No Action (DME) blood-glucose meter [Accu-Chek Guide Glucose Meter] Misc See Rx Instructions .Route Qty: 1 0RF Rx Instructions: Check blood glucose daily ketoconazole 2 % shampoo 1 applic topical 3XW Qty: 120 0RF (DME) Blood Glucose Test Strip See Rx Instructions .Route Qty: 50 0RF Rx Instructions: Check blood glucose daily (DME) lancets 28 gauge misc See Rx Instructions .Route Qty: 100 0RF Rx Instructions: Check blood glucose daily albuterol sulfate 90 mcg/actuation HFA aerosol inhaler 1 - 2 inh inhalation Q4-6H PRN (Reason: shortness of breath or wheezing) Qty: 8.5 2RF Combivent Respimat 20-100 mcg/actuation mist 1 puff inhalation QID Qty: 4 5RF Rx Instructions: space evenly during waking hours azelastine 137 mcg (0.1 %) spray,non-aerosol 137 mcg intranasal . q.h.s. Qty: 30 5RF Rx Instructions: administer into each nostril 1 or 2 sprays q.h.s. at bedtime budesonide-formoterol [Breyna] 160-4.5 mcg/actuation HFA aerosol inhaler 2 puff inhalation Q12H Qty: 10.2 5RF Rx Instructions: rinse and spit pioglitazone 45 mg tablet 45 mg PO DAILY gabapentin 800 mg tablet 800 mg PO BID ibuprofen 800 mg tablet 800 mg PO ONCE PRN (Reason: pain) Qty: 90 0RF triamcinolone acetonide 0.1 % cream 1 applic topical BID Qty: 30 0RF Xarelto 20 mg tablet 20 mg PO QPM Qty: 90 2RF Rx Instructions: must administer with evening meal dapagliflozin propanediol [Farxiga] 5 mg tablet 5 mg PO DAILY Qty: 90 3RF furosemide 40 mg tablet 40 mg PO PRN simvastatin 40 mg tablet 40 mg PO QPM Jardiance 10 mg tablet 10 mg PO DAILY sildenafil [Viagra] 100 mg tablet 100 mg PO DAILY PRN (Reason: sexual activity) Qty: 10 11RF Rx Instructions: administer 30 minutes to 4 hours before activity potassium chloride 10 mEq capsule, extended release 10 meq PO DAILY Qty: 90 3RF carvedilol 6.25 mg tablet 6.25 mg PO BID Qty: 180 2RF Rx Instructions: must administer with a meal/food digoxin 250 mcg (0.25 mg) tablet 250 mcg PO DAILY Qty: 90 2RF Follow-up/Referrals: Nuvia Villeda PA-C [Primary Care Provider] -
[2024-06-26 14:33] LABS: Basophils Percent Auto 0.2 % (0.2-1.2); Eosinophils Percent Auto 0.2 % (0-4.4); Hematocrit 47.8 % (42.0-52.0); Immature Granulocyte Absolute 0.03 K/mm3 (0.00-0.031); Immature Granulocyte Percent A 0.5 % (0-0.5); Immature Platelet Fraction Pct 9.4 % (0.9-11.2); Lymphocytes Absolute Auto 0.93 K/mm3 (0.9-3.2); Lymphocytes Percent Auto 14.1 % (18.3-44.2); Mean Corpuscular HGB Conc 31.4 g/dl (32-36); Mean Corpuscular Hemoglobin 31.5 pg (26-34); Mean Corpuscular Volume 100.4 fl (80-100); Mean Platelet Volume 11.7 fl (7.4-10.4); Monocytes Absolute Auto 1.2 K/mm3 (0.1-0.6); Monocytes Percent Auto 18.8 % (2.6-8.5); Neutrophils Absolute Auto 4.4 K/mm3 (1.3-6.7); Neutrophils Percent Auto 66.2 % (45.5-73.1); Platelet Count Result 113 k/mm3 (150-375); Red Blood Count 4.76 M/mm3 (4.6-6.20); Red Cell Distribution Width 13.6 % (11.5-14.5); White Blood Count 6.6 K/mm3 (4.5-10.0)
[2024-06-26 14:42] LABS: INR 1.2; Prothrombin Time 15.2 Seconds (11.1-14.7)
[2024-06-26 14:43] LABS: Alanine Aminotransferase 29 U/L (6-50); Albumin Level 4.3 g/dL (3.5-5.1); Alkaline Phosphatase 79 U/L (38-126); Anion Gap 9 mmol/L (4-12); Aspartate Amino Transferase 38 U/L (17-59); Bilirubin,Total 0.8 mg/dL (0.2-1.3); Blood Urea Nitrogen 32 mg/dL (9-20); Calcium 9.7 mg/dL (8.4-10.2); Carbon Dioxide 35 mmol/L (22-30); Chloride 96 mmol/L (98-107); Estimated Glomerular Filt Rate > 60; Glucose 102 mg/dL (65-110); Lipase 75 U/L (23-300); Partial Thromboplastin Time 39.2 Seconds (22.3-36.8); Sodium 140 mmol/L (137-145)
[2024-06-26 14:54] LABS: Troponin I 0.015 ng/mL (0.000-0.034)
--- OUTSIDE RECORDS SUMMARY | 2024-06-26 14:58 | XMS_ITS | Clinical Summary ---
Author Organization [facility] Address [address] [place] [address]. [place], [place] [address] [place] [address] Care Team Providers Care Water Safety Teacher Name Role Phone Davi Alyce Garcia Primary Care Provide r Allergies Active Allergy Reactions Criticality Noted Date Comments Lidocaine Angioedema,Swelling Medium 11/25/2021 Active Problems Problem Noted Date Diagnosed Date Reducible bulge of abdominal wall 06/28/2023 Fatigue 09/09/2019 Morbid obesity ([facility]) 09/09/2019 Non-seasonal allergic rhinitis due to pollen Obstructive sleep apnea 09/09/2019 Pulmonary hypertension ([facility]) 020 History of pneumonia 05/18/2016 Hypoxemia 05/18/2016 Shortness of breath 05/18/2016 Sleep disorder 05/18/2016 Resolved Problems Problem Noted Date Diagnosed Date Resolved Date Non-smoker 09/09/2019 11/26/2023 Social History Tobacco Use Types Packs/Day Years Used Date Smoking Tobacco: Never Assessed Sex and Gender Information Value Date Recorded Sex Assigned at Not on file Legal Sex Male 11:15 PM LOG CHIPPER Gender Identity Not on file Sexual Orientation [...] complete this topic Insurance MEDICARE Care Teams Water Safety Teacher Relationship Specialty Start Date End Date Davi Alyce Garcia [place] [address] PCP - General Physician [facility] 09/10/23
--- OUTSIDE RECORDS SUMMARY | 2024-06-26 14:59 | XMS_ITS | Patient Health Summary ---
Author Organization [facility] Address [address] [place] [address] Care Team Providers Care Rn Imcu Name Role Phone Vangie Valentine MD Primary Care Provider [phone] Note from [facility],non-owned Affiliates and Associated Physician Practices is amultiple site organization consisting of ambulatory clinics and hospital sitesin [place], [place], [place] and [place]. This disclosure is being madepursuant to the Care Everywhere program and may not contain all information available regarding this patient. Last updated 18.[facility] Allergies * Lidocaine(Swelling) -Medium Criticality Medications * [...] Comments Blood Pressure 135/97 06/28/2023 8:35 AM LINEN CLERK Pulse 90 06/28/2023 8:35 AM LINEN CLERK Temperature 36.6 ??C (97.9 ??F) 06/28/2023 8:35 AM CS T Respiratory Rate - - Oxygen Saturation - - Inhaled Oxygen Concentration - - Weight 135.2 kg (298 lb) 06/28/2023 8:35 AM LINEN CLERK Height 182.9 cm (6') 06/28/2023 8:35 AM LINEN CLERK Body Mass Index 40.42 06/28/2023 8:35 AM LINEN CLERK Care Teams Rn Imcu Relationship Specialty Start Date End Date Vangie Valentine MD [address] [place] [address] PCP - General 08/18/21
--- OUTSIDE RECORDS SUMMARY | 2024-06-26 14:59 | XMS_ITS | Clinical Summary ---
Author Organization [facility] Address [address] [place] [address] Care Team Providers Care Claim Inspector Name Role Phone Vangie Valentine MD Primary Care Provider [phone] Source Comments [facility],non-owned Affiliates and Associated Physician Practices is amultiple site organization consisting of ambulatory clinics and hospital sitesin [place], [place], [place] and [place]. This disclosure is being madepursuant to the Care Everywhere program and may not contain all information available regarding this patient. Last updated 18.[facility] Allergies Active Allergy Reactions Criticality Noted Date [...] Comments Blood Pressure 135/97 06/28/2023 8:35 AM CONFIDENTIAL INVESTIGATOR Pulse 90 06/28/2023 8:35 AM CONFIDENTIAL INVESTIGATOR Temperature 36.6 ??C (97.9 ??F) 06/28/2023 8:35 AM CS T Respiratory Rate - - Oxygen Saturation - - Inhaled Oxygen Concentration - - Weight 135.2 kg (298 lb) 06/28/2023 8:35 AM CONFIDENTIAL INVESTIGATOR Height 182.9 cm (6') 06/28/2023 8:35 AM CONFIDENTIAL INVESTIGATOR Body Mass Index 40.42 06/28/2023 8:35 AM CONFIDENTIAL INVESTIGATOR Plan of Treatment Health Maintenance Due Date [...] age to complete this topic Care Teams Claim Inspector Relationship Specialty Start Date End Date Vangie Valentine MD [address] [place] [id number] PCP - General 08/18/21
--- OUTSIDE RECORDS SUMMARY | 2024-06-26 14:59 | XMS_ITS | Continuity of Care Document ---
Author Organization [facility] Address [address] [place] [address] Phone Care Team Providers Care Retail Reset Merchandiser Name Role Phone Tony Mchugh MD Unavailable [...] Procedure Date OFFICE/OUTPATIENT VISIT, EST PREV VISIT, [facility], AGE 40-64 Advance Directives Directive Yes / No Effective Date File Name No Information Encounters Encounter Description Practice Location Reason(s) For Visit Diagnoses Date Provider Providers Copied on Encounter OFFICE/OUTPA TIENT VISIT, EST [facility], [address] [place] [address], [id number], tel:[phone] [facility] HTN (chief complaint) urinary frequency (chief complaint) urinary frequency (chief complaint) Afib (chief complaint) Dietary surveillance and counselingBP - High blood pressureSleep apneaAtrial fibrillationUrinary frequency [address] [place], [place], [id number] , [place]. tel:[phone] Referring Provider: Tony Mchugh, [address] [place], [place], [id number]. tel:[phone] PREV VISIT, NEW, AGE 40-64 [facility], [address], [place], [place], [id number], [place] tel:[phone] [facility] Medicine Physical (chief complaint) Routine Medical ExamDietary surveillance and counselingRoutine Medical Exam 5 [address]. [address], [place], [place], [id number] , [place]. tel:[phone] Family History Family Member Type Diagnosis Age At Onset Father Problem (finding) Coronary artery disease 75 Mother Problem (finding) COPD Brother Problem (finding) Alive and well Payers Payer name Insurance type Covered constitution party ID Authoriza tion(s) No Information Social [...] Type Assessment Date assessment Dietary surveillance and veterans rehabilitation counselor ing assessment BP - High blood pressure 2014 assessment Sleep apnea assessment Atrial fibrillation assessment Urinary frequency Mental Status Date Cognitive Assessment Orientation - [place] ed to time, place, person, situation.
--- OUTSIDE RECORDS SUMMARY | 2024-06-26 14:59 | XMS_ITS | Referral Summary ---
Author Organization [place] [id number] [facility] Address [address] [place] [address] Care Team Providers Care Forensic Science Examiner Name Role Phone No, Physician Unavailable Vangie Valentine MD Primary Care Provider [phone] Allergies Active Allergy Reactions Criticality Noted Date [...] PELVIS W CONTRAST Routine 05/13/2018 12:00 AM RADIO INTELLIGENCE OPERATOR from Last 3 Months or Most Recently Relevant to Health Maintenance Results * CT Abdomen Pelvis W Contrast (05/13/2018 12:00 AM RADIO INTELLIGENCE OPERATOR) Anatomical Region Laterality Modality Body N/A Computed Tomogra phy 05/13/2018 Impressions 05/13/2018 2:50 AM RADIO INTELLIGENCE OPERATOR ??No acute findings in the abdomen or pelvis. THIS IS AN ELECTRONICALLY VERIFIED FINAL REPORT 05/13/2018 2:47 AM - Electronically signed by Mario Garcia M.D. RW D: ??05/13/2018 2:47 AM T: Report ID: [id number] Reading Location: ??[id number] [EOD] Narrative 05/13/2018 2:50 AM RADIO INTELLIGENCE OPERATOR EXAM DESCRIPTION: ??CT Abd/Pelvis W IV Contrast [...] Mario Garcia M.D. RW T: Report ID: [id number] Reading Location: [place] [address] [EOD] Richardson Kilgore NP IMG CT PROCEDURES Final R esult from Last 3 Months or Most Recently Relevant to Health Maintenance Insurance [facility] OTHER Address: [address] [place] [id number] [facility] IDPA MEDICARE SOLUTIONS [facility] MEDICARE Address: [address] [address] [place] [address] Care Teams Forensic Science Examiner Relationship Specialty Start Date End Date Vangie Valentine MD [address] [place] [address] PCP - General Internal Medicine 06/11/19 No, Physician 05/18/18
--- OUTSIDE RECORDS SUMMARY | 2024-06-26 14:59 | XMS_ITS | Clinical Summary ---
Author Organization [place] [address] [facility] Address [address] [place] [address] Care Team Providers Care Social Worker Palliative Care Name Role Phone No, Physician Unavailable Vangie Valentine MD Primary Care Provider [phone] Allergies Active Allergy Reactions Criticality Noted Date [...] Medical History Medical History Date Comments Diabetes ([facility]) Neuropathy ([facility]) Hypertension A-fib ([facility]) ([facility]) CHF (congestive heart failure) ([facility]) ([facility]) Family History Medical History Relation Name Comments [...] PELVIS W CONTRAST Routine 05/13/2018 12:00 AM BOX CAR LOADER from Last 3 Months or Most Recently Relevant to Health Maintenance Results * CT Abdomen Pelvis W Contrast (05/13/2018 12:00 AM BOX CAR LOADER) Anatomical Region Laterality Modality Body N/A Computed Tomogra phy 05/13/2018 Impressions 05/13/2018 2:50 AM BOX CAR LOADER ??No acute findings in the abdomen or pelvis. THIS IS AN ELECTRONICALLY VERIFIED FINAL REPORT 05/13/2018 2:47 AM - Electronically signed by Mario Garcia M.D. RW D: ??05/13/2018 2:47 AM T: Report ID: [id number] Reading Location: ??[id number] [EOD] Narrative 05/13/2018 2:50 AM BOX CAR LOADER EXAM DESCRIPTION: ??CT Abd/Pelvis W IV Contrast [...] Mario Garcia M.D. RW T: Report ID: [id number] Reading Location: [place] [address] [EOD] Richardson Kilgore NP IMG CT PROCEDURES Final R esult from Last 3 Months or Most Recently Relevant to Health Maintenance Insurance [employer] Care Teams Social Worker Palliative Care Relationship Specialty Start Date End Date Vangie Valentine MD [address] [place] [address] [address] [place] [address] PCP - General Internal Medicine 06/11/19 No, Physician 05/18/18
--- OUTSIDE RECORDS SUMMARY | 2024-06-26 14:59 | XMS_ITS | Continuity of Care Document ---
Author Organization [facility] Address [address] [place] [address] Phone Care Team Providers Care City Route Driver Name Role Phone Inge Ramirez MD Unavailable [...] A VENOUS GLUCOSE METHOD. Test performed at [facility] [place] [id number]: KAILEE SAUCEDA MT([facility]) Panel Description: POC HEMOGLOBIN A1C Final POC HEMOGLOBIN A1C 2008 13:51:0 0 6.1 % OF TOTAL HGB H Final NON-DIABETC <6.0 % Test performed at [facility] [place] [id number]: KAILEE SAUCEDA MT([facility]) Advance Directives Directive Yes / No [...] Diagnoses Date Provider Providers Copied on Encounter [facility], [address], [place], [place], [id number] , tel: [phone] [facility] abnormal glucose (chief complaint) Screening for diabetes mellitus [address], [place], [place], [address] , [place]. tel: [phone] OFFICE OUTPT NEW 30 MIN [facility], [address], [place], [place], [id number] , tel: [phone] [facility] sleep apnea (chief complaint) back pain (chief complaint) breathing problems (chief complaint) stomach bulging (chief complaint) left knee pain (chief complaint) Routine general medical examination at a health care facilityOverweight and obesityInsomnia with sleep apnea, unspecifiedShortness of breathRoutine general medical examination at a health care facility [address], [place], [place], [id number] , [place]. tel:[phone] Family History Family Member Type Diagnosis Age [...] Of Treatment Date Type Action Status Goal BMP fasting. Due on due Goal ALT. Due on due Goal Lipid Panel. Due on due Goal PSA. Due on due Goal AST. Due on due Goal Urinalysis. Due on due Referral Referred To: [address], [address] Ordered: Referral: [facility]. Radiology. Diagnostic testing. ordered Future [...]
--- OUTSIDE RECORDS SUMMARY | 2024-06-26 14:59 | XMS_ITS | Referral Summary ---
Author Organization [facility] Address [address] [place] [address] Care Team Providers Care Customer Service Agent Name Role Phone Vangie Valentine MD Primary Care Provider Source Comments [facility],non-owned Affiliates and Associated Physician Practices is amultiple site organization consisting of ambulatory clinics and hospital sitesin [place], [place] and [place]. This disclosure is being madepursuant to the Care Everywhere program and may not contain all information available regarding this patient. Last updated 18.[facility] Allergies Active Allergy Reactions Criticality Noted [...] Comments Blood Pressure 135/97 06/28/2023 8:35 AM ATHLETE MARKETING AGENT Pulse 90 06/28/2023 8:35 AM ATHLETE MARKETING AGENT Temperature 36.6 ??C (97.9 ??F) 06/28/2023 8:35 AM CS T Respiratory Rate - - Oxygen Saturation - - Inhaled Oxygen Concentration - - Weight 135.2 kg (298 lb) 06/28/2023 8:35 AM ATHLETE MARKETING AGENT Height 182.9 cm (6') 06/28/2023 8:35 AM ATHLETE MARKETING AGENT Body Mass Index 40.42 06/28/2023 8:35 AM ATHLETE MARKETING AGENT Plan of Treatment Not on file Care Teams Customer Service Agent Relationship Specialty Start Date End Date Vangie Valentine MD [address] [place] [phone] PCP - General 08/18/21
[2024-06-26 15:14] LABS: Influenza A QL RT-PCR Positive (Negative); Influenza B QL RT-PCR Negative (Negative); RSV RNA, RT-PCR Negative (Negative); SARS-CoV-2 RNA PCR Negative (Negative)
[2024-06-26 15:35] VITALS: RESP 20; O2SAT 99
== END 2024-06-26 15:45 | disposition home or self-care (01) ==
PROVIDERS: Emergency Provider Physician Assistant; PCP Student in an Organized Health Care Education/Training Program
DX: J10.1 Influenza due to other identified influenza virus with other respiratory manifestations (principal); Z20.822 Contact with and (suspected) exposure to COVID-19; I11.0 Hypertensive heart disease with heart failure; I50.9 Heart failure, unspecified; I48.91 Unspecified atrial fibrillation; J44.9 Chronic obstructive pulmonary disease, unspecified; E11.9 Type 2 diabetes mellitus without complications; K21.9 Gastro-esophageal reflux disease without esophagitis; N28.9 Disorder of kidney and ureter, unspecified; Z79.01 Long term (current) use of anticoagulants; Z79.84 Long term (current) use of oral hypoglycemic drugs; Z79.899 Other long term (current) drug therapy; I45.10 Unspecified right bundle-branch block
CPT/HCPCS: 36415; 71046; 80053; 83690; 84484; 85025; 85055; 85610; 85730; 87637; 93005; 99284

== ENCOUNTER 2024-08-29 14:44 | Outpatient (CLI) | payer MEDICARE, MEDICAID, SELFPAY ==
--- NOTE | ~2024-08-29 | CT_ITS ---
CT Scan of the Chest without Contrast: Clinical Indication: Nonspecific abnormal finding of lung field Technique: Contiguous sections were acquired throughout the chest without intravenous contrast. Dose reduction technique was used on this scan by utilizing automated exposure control and iterative recon struction technique. The dose-length product (DLP) was 590.11 mGy-cm. Findings: There is no evidence of any significant mediastinal, hilar or axillary lymphadenopathy. Coronary felipa ry calcifications are present. There is no evidence of pleural or pericardial effusion. There is probable chronic atelectasis or scarring in the right middle lobe. Calcified right lower lob e granuloma noted. There is curvilinear scarring at the left lower lobe. Images through the upper abdomen reveal no abnormalities. There is extensive DISH of the thoracic spi ne. There is are chronic compression deformities of T11 and T12. Impression: Probable chronic atelectasis or scarring right middle lobe. Additional curvilinear scarring left lowe r lobe. Reviewed, dictated and finalized at [facility]. Impression: Probable chronic atelectasis or scarring right middle lobe. Additional curvilin ear scarring left lower lobe.
--- OUTSIDE RECORDS SUMMARY | 2024-08-29 14:49 | XMS_ITS | Clinical Summary ---
Author Organization [facility] Address [facility] [place] [address] Care Team Providers Care Structural Steel Engineer Name Role Phone Davi Alyce Garcia Primary Care Provide r Allergies Active Allergy Reactions Criticality Noted Date Comments Lidocaine Angioedema,Swelling Medium 11/25/2021 Active Problems Problem Noted Date Diagnosed Date Reducible bulge of abdominal wall 06/28/2023 Fatigue 09/09/2019 Morbid obesity 09/09/2019 Non-seasonal allergic rhinitis due to pollen Obstructive sleep apnea 09/09/2019 Pulmonary hypertension ([facility]) 020 History of pneumonia 05/18/2016 Hypoxemia 05/18/2016 Shortness of breath 05/18/2016 Sleep disorder 05/18/2016 Resolved Problems Problem Noted Date Diagnosed Date Resolved Date Non-smoker 09/09/2019 11/26/2023 Social History Tobacco Use Types Packs/Day Years Used Date Smoking Tobacco: Never Assessed Sex and Gender Information Value Date Recorded Sex Assigned at Not on file Legal Sex Male 11:15 PM FILM MASKER Gender Identity Not on file Sexual Orientation Not on file Plan of Treatment Health Maintenance Due Date Last Done Comments Colorectal Cancer Screening Colonoscopy (10 Years) 1958 Hepatitis C 1976 DTaP, Tdap and Td Vaccines ( 1 - Tdap) 1977 Zoster Vaccines (1 of 2) 2008 Annual Medicare Wellness Visit 08/18/2023 Pneumococcal Vaccine: 65+ Ye ars (1 of 1 - PCV) 08/18/2023 COVID-19 Vaccine (1 - 2023-2 5 season) 2024 RSV Immunization or 60+ Years (1 [...] complete this topic Insurance MEDICARE Care Teams Structural Steel Engineer Relationship Specialty Start Date End Date Davi Alyce Garcia PA [address] [place] [address] PCP - General Physician Mine Utility Operator Medical 09/10/23
--- OUTSIDE RECORDS SUMMARY | 2024-08-29 14:50 | XMS_ITS | Clinical Summary ---
Author Organization [place] [address] [facility] Address [address] [place] [address] Care Team Providers Care Assistant Chief Nursing Officer Name Role Phone No, Physician Unavailable Vangie Valentine MD Primary Care Provider [phone] Allergies Active Allergy Reactions Criticality Noted Date [...] Medical History Date Comments Diabetes (HCC) Neuropathy Hypertension A-fib (HCC) CHF (congestive heart failure) ([facility]) Family History Medical History [...] 65 03/12/2024 11:09 AM CDT Temperature 36.9 C (98.5 F) 01/27/2023 4:00 PM CDT Respiratory Rate 17 01/27/2023 4:00 PM CDT [...] Pneumococcal vaccine 65+ (2 of 2 - PPSV23) 07/25/2018 05/30/2018 Abdominal Aortic Aneurysm (A AA) Screen 08/18/2023 05/13/2018 Well Visit 65+ 08/18/2023 Covid-19 Vaccine (3 - 2023-2 5 season) 2024 10/12/2020, 08/19/2020 Influenza Vaccine (#1) 2024 , 07/03/2019, 04/10/2019, Additional history exists Procedures Procedure Name Priority Date/Time Associated Diagnosis Comments CT ABDOMEN PELVIS W CONTRAST Routine 05/13/2018 12:00 AM FISH CHECKER from Last 3 Months or Most Recently Relevant to Health Maintenance Results * CT Abdomen Pelvis W Contrast (05/13/2018 12:00 AM FISH CHECKER) Anatomical Region Laterality Modality Body N/A Computed Tomogra phy 05/13/2018 Impressions 05/13/2018 2:50 AM FISH CHECKER No acute findings in the abdomen or pelvis. THIS IS AN ELECTRONICALLY VERIFIED FINAL REPORT 05/13/2018 2:47 AM - Electronically signed by Mario Garcia M.D. RW T: Report ID: [id number] Reading Location: [place] [address] [EOD] Narrative 05/13/2018 2:50 AM FISH CHECKER EXAM DESCRIPTION: CT Abd/Pelvis W IV Contrast REASON FOR STUDY: Abdominal pain right upper quadrant pain after fall possible loss of consciousness headache shortness of breath for 3 months fall 1 day ago TECHNIQUE: CT scan of the abdomen and pelvis performed with intravenous and without oral contrast using helical scanning technique with dynamic intravenous contrast injection. Reconstructed coronal and sagittal MPR images reviewed. All images stored on PACS. Automated exposure control was used as a dose optimization technique for this examination. CONTRAST TYPE/DOSE: 100 mL of [...] bowel loops. No obvious wall thickening. Normal appendix. No significant diverticular disease. Broad-based midline anterior abdominal hernia just above the level of the umbilicus. This contains portion of the mid transverse colon. No evidence of obstruction or bowel wall thickening. No evidence of inflammation. PERITONEUM: No ascites or free air. RETROPERITONEUM: No mass or adenopathy. REPRODUCTIVE: No significant abnormality. VASCULATURE: No abdominal aortic aneurysm. MUSCULOSKELETAL: No acute findings. Osteoarthritis of the hips. Degenerative change of the spine. OTHER: No other [...] Mario Garcia M.D. RW T: Report ID: [id number] Reading Location: [place] [address] [EOD] Richardson Kilgore NP IMG CT PROCEDURES Final R esult from Last 3 Months or Most Recently Relevant to Health Maintenance Insurance [place] [address] IDPA [facility] [facility] MEDICARE [facility] Address: [address] [address] [place] [address] Care Teams Assistant Chief Nursing Officer Relationship Specialty Start Date End Date Vangie Valentine MD [address] [place] [address] PCP - General Internal Medicine 06/11/19 No, Physician 05/18/18
--- OUTSIDE RECORDS SUMMARY | 2024-08-29 14:50 | XMS_ITS | Data Portability ---
Author Organization [facility] Address [address] [place] [address] Care Team Providers Care Early Childhood Director Name Role Phone VANGIE TELLO Primary Care Provider Assessment No assessment recorded. Plan of Treatment Reminders Order Date Submit Date Provider Last Modified By Organization Details Last Modified Time Details Appointments None recorded. Lab HbA1c (hemoglob in A1c), blood 2022 023 [facility] In-Office Order, Internal Use Only DO Not Attach Compendium DO Not Attach Compendium, Do Not Delete/merge, [id number] 3 17:30:48 HbA1c (hemoglob in A1c), blood 2022 023 [facility], [address], [address], [place], [address], 3 18:19:31 microalbu min/creat inine, mass ratio, urine 2022 023 [facility], [address], [address], [place], [address], 3 18:23:48 CMP, serum or plasma 2022 023 [facility], [address], [address], [place], [address], 3 18:23:48 lipid panel, serum 2022 023 [facility], [address], [address], [place], [address], 3 18:23:48 noninvasi ve colorecta l cancer DNA + occult blood screening , QL, stool [address] [facility] (Cologuard Orders Only), [address], [address], [place], [address], 3 08:11:02 noninvasi ve colorecta l cancer DNA + occult blood screening , QL, stool [address] [facility] (Cologuard Orders Only), [address], [address], [place], [address], 4 09:04:56 HbA1c (hemoglob in A1c), blood 2022 023 [facility] In-Office Order, Internal Use Only DO Not Attach Compendium DO Not Attach Compendium, Do Not Delete/merge, [id number] 3 16:28:51 Referral cardiolog ist referral - Please call him for appointme nt, thanks! [address] Cardiology, [address] [place], [address], 4 05:08:48 otolaryng ologist referral - Please call patient for appointme nt,thanks ! [address] - Otolaryngology (Ent), [address] [facility] , [address], [place], [address], 4 05:08:47 general surgeon referral - General surgery for hernia of abdomen, please call patient for appointme nt,thanks ! [address] General Surgery, [address], [facility] [address], [place], [address], 4 05:08:47 dermatolo gist referral 2022 023 [email or web address] [facility] Dermatology, [address] [facility], [place], [address], 4 05:08:46 dermatolo gist referral 2022 023 [email or web address] [facility] Dermatology, [address] [facility], [place], [address], 3 10:12:31 chiroprac tor referral - Please call patient for appointme nt, thanks! [email or web address] [facility] [place], [address], [place], [address], 3 09:20:00 Procedures pulmonary stress test, simple (PROC) 2023 024 [facility] (Cardio Ekg), [address] [place], [address], 4 05:01:49 Surgeries None recorded. Imaging PFT, complete - W/ Post Bronchodi lator Spirometr y 2023 024 [facility] (Cardio Ekg), [address], [place], [address], 4 05:01:48 Medication Orders famotidin e 20 mg tablet 2023 024 [facility], [address], [place], [place], [id number], 4 17:25:57 magnesium oxide 400 mg (241.3 mg magnesium ) tablet 2023 024 [facility]77[facility], [address] , [place], [place], [id number], 4 17:25:58 Viagra 100 mg tablet 2023 024 [facility] #25752, [address], [place], [place], [id number], 4 17:25:58 gabapenti n 800 mg tablet 2023 024 [facility] #42609, [address], [place], [place], [id number], 4 17:25:57 aspirin 325 mg tablet,de layed release 2023 [facility] #83501, [address], [place], [place], [id number], 4 17:25:58 pioglitaz one 45 mg tablet 2023 024 [facility] #52136, [address], [place], [place], [id number], 4 17:25:58 simvastat in 40 mg tablet 2023 024 [facility] #15028, [address], [place], [place], [id number], 4 17:25:59 albuterol sulfate HFA 90 mcg/actua tion aerosol inhaler 2023 024 [facility] #81295, [address], [place], [place], [id number], 4 17:25:57 ipratropi um 0.5 mg-albute rol 3 mg (2.5 mg base)/3 mL nebulizat ion soln 2023 024 [facility] #67672, [address], [place], [place], [id number], 4 17:25:56 Symbicort 160 mcg-4.5 mcg/actua tion HFA aerosol inhaler 2023 024 [facility] #69298, [address], [place], [place], [id number], 4 17:25:59 carvedilo l 6.25 mg tablet 2023 024 [facility] #45914, [address], [place], [place], [id number], 4 17:25:55 digoxin 250 mcg (0.25 mg) tablet 2023 024 [facility] #72971, [address] , [place], [place], [id number], 4 17:25:55 diltiazem CD 240 mg capsule,e xtended release 24 hr 2023 024 [facility] #23325, [address] , [place], [place], [id number], 4 17:25:57 furosemid e 40 mg tablet 2023 024 [facility] #54714, [address] [place], [place], [id number], 4 17:25:58 potassium chloride ER 10 mEq tablet,ex tended release 2023 024 [facility] #19877, [address], [id number], 4 17:25:56 magnesium oxide 400 mg (241.3 mg magnesium ) tablet 2022 023 [facility] #04132, [address] [place], [place], [id number], 3 17:30:58 pioglitaz one 45 mg tablet 2022 [facility] #24883, [address], [place], [place], [id number], 3 17:31:00 ipratropi um 0.5 mg-albute rol 3 mg (2.5 mg base)/3 mL nebulizat ion soln 2022 023 [facility] #51277, [address], [place], [place], [id number], 3 17:30:59 Symbicort 160 mcg-4.5 mcg/actua tion HFA aerosol inhaler 2022 023 [facility] #82626, [address], [place], [place], [id number], 3 17:30:57 ibuprofen 800 mg tablet 2022 023 [facility] #97148, [address], [place], [place], [id number], 3 17:30:59 Viagra 100 mg tablet 2022 023 [facility] #15600, [address], [place], [place], [id number], 3 17:19:55 gabapenti n 800 mg tablet 2022 023 [facility] #06307, [address], [place], [place], [id number], 3 17:30:57 simvastat in 40 mg tablet 2022 023 [facility] #17209, [address], [place], [place], [id number], 3 17:20:01 potassium chloride ER 10 mEq tablet,ex tended release 2022 023 [facility] #98628, [address], [place], [place], [id number], 3 17:19:58 Zithromax Z-Mik 250 mg tablet 2022 023 [facility] #69167, [address], [place], [place], [id number], 3 19:09:21 magnesium oxide 400 mg (241.3 mg magnesium ) tablet 2022 023 [facility] #73041, [address], [place], [id number], 3 18:23:47 famotidin e 20 mg tablet 2022 023 [facility] #21692, [address], [place], [id number], 3 18:23:48 mupirocin 2 % topical ointment 2022 023 [facility] #87372, [address], [place], [id number], 3 18:23:46 aspirin 325 mg tablet,de layed release 2022 023 [facility] #65172, [address], [place], [id number], 3 18:23:50 pioglitaz one 45 mg tablet 2022 023 [facility] #24574, [address], [place], [id number], 3 18:23:47 ipratropi um 0.5 mg-albute rol 3 mg (2.5 mg base)/3 mL nebulizat ion soln 2022 023 [facility] #39796, [address], [place], [id number], 3 18:23:50 EpiPen 2-Mik 0.3 mg/0.3 mL injection , auto-inje ctor 2022 023 [facility] #49888, [address], [place], [id number], 18:23:49 ibuprofen 800 mg tablet 2022 023 [facility] #76610, [address], [place], [id number], 18:23:48 gabapenti n 800 mg tablet 2022 023 [facility] #98545, [address], [place], [id number], 18:23:49 Viagra 100 mg tablet 2022 023 [facility], [address] [place] [address], [id number], 4 16:53:25 simvastat in 40 mg tablet 2022 023 [facility] #01032, [address], [place], [id number], 3 18:23:46 carvedilo l 6.25 mg tablet 2022 023 [facility] #29601, [address], [place], [id number], 3 18:23:49 digoxin 250 mcg (0.25 mg) tablet 2022 023 [facility] #30423, [address], [place], [id number], 3 18:23:47 diltiazem CD 240 mg capsule,e xtended release 24 hr 2022 023 [facility] #65154, [address], [place], [id number], 3 18:23:50 furosemid e 40 mg tablet 2022 023 [facility] #38030, [address], [place], [id number], 3 18:23:51 potassium chloride ER 10 mEq tablet,ex tended release 2022 023 [facility] #66492, [address], [place], [id number], 3 18:23:49 Viagra 100 mg tablet 2022 023 [facility] #20277, [address], [place], [id number], 3 16:48:21 hydrocodo ne 10 mg-acetam inophen 325 mg tablet 2022 023 [facility] #12336, [address], [place], [id number], 3 17:00:31 pioglitaz one 30 mg tablet 2022 023 jhsieh [facility] #96346, [address], [place], [id number], 17:22:06 simvastat in 40 mg tablet 2022 023 LIANE [facility] #40506, [address], [place], [id number], 16:48:21 Patient TargetsNo targets recorded. Patient Instructions Encounter Date Encounter Id Patient Instructions Last Modified By Organization Details Last Modified Time 06/21/2022 [id number] rash: care instructions [facility] Not available 06/21/2022 16:28:52 healthy upper back: exercises [facility] Not available 06/21/2022 16:28:52 heart failure: care instructions [facility] Not available 06/21/2022 16:48:06 learning about heart failure si Not available 06/21/2022 16:48:06 02/07/2023 [id number] learning about type 2 diabetes si Not available 02/07/2023 18:23:32 type 2 diabetes: care instructions [facility] Not available 02/07/2023 18:23:33 A healthy lifestyle: care instructions [facility] Not available 02/07/2023 18:23:33 heart failure: care instructions [facility] Not available 02/07/2023 18:23:33 learning about heart failure si Not available 02/07/2023 18:23:33 rash: care instructions [facility] Not available 02/07/2023 18:23:33 04/11/2023 [id number] influenza (flu) vaccine: care instructions [facility] Not available 04/11/2023 18:37:40 hernia: care instructions [facility] Not available 04/11/2023 16:59:50 07/25/2023 [id number] hernia: care instructions [facility] Not available 07/25/2023 17:41:58 07/26/2023 [id number] sleep apnea: car e instructions ajamous Not [...] [facility], Encounter Date: 06/21/2022 [employer] Referral for E ruption Referring Physician: Vangie Tello Internal Medicine, Encounter Date: 06/21/2022 [employer] Referral for E ruption Referring Physician: Vangie Tello Internal [facility], Encounter Date: 02/07/2023 General Surgeon Referral for Hernia of anterior abdominal wall General surgery for hernia of abdomen, please call patient for appointment,thanks! Referring Physician: Vangie Tello Internal [facility], Encounter Date: 04/11/2023 Acls Nurse Referral fo r Impacted cerumen in right ear Please call patient for appointment,thanks! Referring Physician: Vangie Tello Internal [facility], Encounter Date: 04/11/2023 Gerentological Physiotherapist Referral for Ch ronic atrial fibrillation Please [...] Only) [address], [place], [address], 06/21/2023 09:04:55 02/09/20 23 02/08/2023 COLOG UARD cologuard result Cancel led - Duplic ate Order not applic able Not Available [facility] (Cologuard Orders Only) [address], [place], [address], 02/08/2023 08:11:02 06/23/19 23 06/23/2022 COLOG UARD cologuard result Cancel led - Duplic ate Order not applic able Not Available [facility] (Cologuard Orders Only) [address], [place], [address], 06/23/2022 11:41:44 05/24/20 22 05/25/2022 DIABE ZORAN PATIE NT EDUCA TION pdf . Not Available [facility] ([facility]) [address] [facility], [place], [address], 05/25/2022 08:14:15 05/24/20 22 05/25/2022 HEMOG LOBIN A1C hemoglobin A1C 5.6 % 4.8-5. 6 Predi abete s: 5.7 - 6.4 Diabe zoran: >6.4 Glyce kai contr ol for adult s with diabe zoran: <7.0 Not Available [facility] ([facility]) [address] [place], [address], 05/25/2022 08:14:15 05/24/20 22 05/25/2022 MAGNE SIUM magnesium 1.8 mg/dL 1.6-2. 3 Not Available [facility] ([facility]) [address] [place], [address], 05/25/2022 08:14:16 05/24/20 22 05/25/2022 HBSAG SCREE N HBsAg screen Negati ve negati ve Not Available [facility] ([facility]) [address] [place], [address], 05/25/2022 08:14:16 05/24/20 22 05/25/2022 HEPAT ITIS B SURF AB QUANT hepatitis B surf Ab quant <3.1 mIU/m L immuni ty>9.9 below low normal Statu s of Immun ity Anti- HBs Level ----- ----- ----- --- ----- ----- ---- Incon siste nt with Immun ity 0.0 - 9.9 Consi stent with Immun ity >9.9 Not Available [facility] ([facility]) [address] [facility], [place], [address], 05/25/2022 08:14:17 05/24/20 22 05/25/2022 PROST ATE-S [...] t be inter prete d as absol vincent evide nce of the prese nce or absen ce of felipe foreman se. Not Available [facility] ([facility]) [address] [facility], [place], [address], 05/25/2022 08:14:18 05/24/20 22 05/25/2022 HIV AB/P2 4 AG WITH REFLE X HIV Ab/P24 Ag screen Non Reacti ve nonrea ctive HIV Negat javier HIV-1 /HIV- 2 antib odies and HIV-1 p24 antig en were NOT detec dolly. There is no labor atory evide nce of HIV infec tion. Not Available [facility] ([facility]) [address] [facility], [place], [address], 05/25/2022 08:14:18 06/21/19 23 06/21/2022 HbA1c (hemo globi n A1c), blood HbA1c 5.3% Not Available In-Office Order Internal Use Only DO Not Attach Compendium DO Not Attach Compendium, Do Not Delete/merge, [id number] 06/21/2022 16:21:07 04/11/20 23 04/11/2023 HbA1c (hemo globi n A1c), blood HbA1c 5.5% Not Available In-Office Order Internal Use Only DO Not Attach Compendium DO Not Attach Compendium, Do Not Delete/merge, [id number] 04/11/2023 17:30:33 09/26/19 24 09/24/2023 CPAP downl oad* No observ ation record ed. [facility] ([facility]) [address] [place], [address], 10/01/2023 12:01:21 Result Notes None recorded. Problems Name Problem SNOMED Code Status Onset Date Resolution Date Notes Provider Name and Address Organization Details Recorded Time Diabetes mellitus 26581083 Active 2017 Not Available [facility] 4 18:42:20 Chronic congestive heart failure 40539908 Active 2018 Not Available [facility] 4 18:42:20 Upper respiratory infection 40018082 Active 2019 Not Available [facility] 4 18:42:20 Problem Notes None recorded. Procedures Surgical History Date Name Laterality Status Provider Name and Address Organization Details Recorded Time Appendectomy completed Sandro Hernandez [place] [facility] 12/18/2016 14:58:41 Imaging Results Imaging Date Name Status LastModified by Organiz ation Details LastModified Time 09/24/2023 CPAP download* completed [facility] ([facility]) [address] [place], [address], 10/01/2023 12:01:21 Procedure Notes None recorded. Medical Equipment None Reported. Allergies Allergen ID Allergen Name Allergen Category Reaction Reaction Severity Criticality Documentation Date Start Date Code Code System Note Provider Name and Address Organization Details Recorded Time 417082 glimepiri de medicatio n dizziness Not available Not available 01/16/2022 81699 RxNorm Not Available Not Available Not Available [...] Updated DateTime 3 182.88 cm 40.4 kg/m2 633148. 53 g 93 % 93 % 95 /min 126 mm[Hg] 80 mm[Hg] Anya Kraft, MA [facility] 3 15:57:27 Date Recorded Body height Body mass index (BMI) Body weight Heart rate Oxygen saturation Oxygen saturation in Arterial blood by Pulse oximetry Systolic blood pressure Diastolic blood pressure Provider Name and Address Organization Details Last Updated DateTime 3 182.88 cm 38.7 kg/m2 246335. 83 g 130 /min 98 % 98 % 143 mm[Hg] 77 mm[Hg] Taya Bryson MA [facility] 3 17:27:13 Date Recorded Body height Body mass index (BMI) Body weight Heart rate Oxygen saturation Oxygen saturation in Arterial blood by Pulse oximetry Systolic blood pressure Diastolic blood pressure Provider Name and Address Organization Details Last Updated DateTime 3 182.88 cm 40.1 kg/m2 379322. 34 g 93 /min 95 % 95 % 142 mm[Hg] 86 mm[Hg] Taya Bryson MA [facility] 3 16:26:09 Date Recorded Body height Body mass index (BMI) Body weight Heart rate Oxygen saturation Oxygen saturation in Arterial blood by Pulse oximetry Systolic blood pressure Diastolic blood pressure Provider Name and Address Organization Details Last Updated DateTime 4 182.88 cm 39.1 kg/m2 165714. 6 g 91 /min 95 % 95 % 142 mm[Hg] 80 mm[Hg] Taya Bryson MA [facility] 4 16:57:44 Date Recorded Body height Body mass index (BMI) Body weight Body temperature Respiratory rate Oxygen saturation Oxygen saturation in Arterial blood by Pulse oximetry Heart rate Systolic blood pressure Diastolic blood pressure Provider Name and Address Organization Details Last Updated DateTime 4 182.88 cm 39.2 kg/m2 839230. 19 g 98 [degF] 18 /min 96 % 96 % 88 /min 124 mm[Hg] 78 mm[Hg] Eufemia Cali LPN [facility] 4 11:57:42 Social History Question Answer Notes LastModified by Organizat ion Details LastModified Time Tobacco Smoking Status Never Smoker ROSALINDA Cope, [facility] 12/18/2016 15:01:06 Do You Have An Advance [...] Or The Highest Degree You Have Received? 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 No Information not available 11/03/2020 Do You Have A Medical Power Of Foreign Exchange Trader? No Information not available 07/26/2023 What Was [...] Anxious, Or Unable To Sleep At Night)? [id number] Information not available 04/11/2023 Do You Use [...] Kidney or Bladder Problems Y Heart Attack (AK) Y Diabetes Y Asthma Y Immunizations Vaccine Type Date Status Note Provider Nam e and Address Organization Details Recorded Time COVID-19, mRNA, LNP-S, PF, 30 mcg/0.3 mL dose completed Not Available [facility] 07/02/2023 18:42:20 SARS-COV-2 (COVID-19) vaccine, UNSPECIFIED 1 completed Not Available [facility] 07/02/2023 18:42:20 Influenza, split virus, quadrivalent, preservative 9 completed Not Available [facility] 06/14/2019 02:38:45 Influenza, split virus, quadrivalent, preservative 0 completed Vj Atkins LPN null, [place] [facility] 07/03/2019 11:52:46 COVID-19, mRNA, LNP-S, PF, 30 mcg/0.3 mL dose, deep-sucrose 2 completed Holly Peter [place] null, [place] [facility] 01/16/2022 15:46:41 Influenza, split virus, quadrivalent, PF 3 completed Vangie Tello MD Attn: Accounting[address] [place], [address], [place] [facility] 04/11/2023 16:53:09 tetanus toxoid, unspecified formulation 7 completed Not Available [facility] 07/02/2023 18:42:20 Past Encounters Encounter ID Performer Location Encounter Start Date Encounter Closed Date Diagnosis/Indication Diagnosis SNOMED-CT Code Diagnosis ICD10 Code Diagnosis Note [id number] Vangie Tello MD [facility] (Adult Med) [address] [place] [phone] 12/18/2016 14:44:41 12/18/2016 16:45:09 Type 2 diabetes mellitus 58973842 E11.40 He can not tolerate the metformin which cause his stomach to be uncomforta ble, diarrhea and cramping. Diabetic p eripheral neuropathy 700375783 E11.40 Body mass index 40+ - severely obese 040371980 Z68.42 Diabetic diet, exercise and lose weight.kannan ling to try wellbutrin and naltrexone to lose weight. Chronic ob structive pulmonary disease 86058422 J44.9 History of partial lung collapsed, needs inhaler to breathe. Umbilical hernia 5039364 07 K42.9 Weight loss, will refer to surgeon in the future if his weight goes down. Screening for malignant neoplasm of colon 381384520 Z12.11 He refuses. Screening for malignant neoplasm of prostate 739000216 Z12.5 Coronary atherosclerosis 960830026 I25.83 Under the care of his cardiologi st [id number] Vangie Tello MD [facility] ([facility]) [address] [place] [address] 09/26/2017 12:08:48 09/26/2017 14:02:45 Diabetes mellitus 94646676 E11.40 Metformin messed his GI , Diarrhea. Chronic co ngestive heart failure 55803946 I50.9 Under the care of his cardiologi . Diabetic p eripheral neuropathy 842023100 E11.40 Exposure t o viral hepatitis 675002369 Z20.5 [id number] Michelle Goodman MD [facility] [address] [place] [phone] 06/17/2018 09:49:13 06/18/2018 15:36:46 Pulmonary hypertension 71941616 I27.20 Multifacto rial Dyspnea on exertion 6084 5006 R06.09 Multifacto rial Obstructiv e sleep apnea syndrome 75006907 G47.33 Patient is not on treatment Tolerant non-smoker 8773 9003 Z87.891 Patient has second hand smoking Edema of l ower extremity 946173256 R60.0 Multifacto rial Hypoxemia 750385262 R09. 02 Patient is using O2 at home [id number] Michelle Goodman MD [facility] [address] [place] [phone] 07/18/2018 11:25:15 07/18/2018 15:15:05 Obstructive sleep apnea syndrome 53398628 G47.33 Patient is not on treatment. His sleep study is not available to me. Dyspnea on exertion 6084 5006 R06.09 Multifacto rial Restrictiv e lung disease 88988997 J98.4 FEV1 36%, FVC 32%, FEV1/FVC 87%, BD-, TLC 43%, DLCO 47%, will add Combivent respimat to his regimen. I will get CXR on the patient. Tolerant non-smoker 8773 9003 Z87.891 Patient has second hand smoking Edema of l ower extremity 644687405 R60.0 Multifacto rial Hypoxemia 112215569 R09. 02 Patient has 6MWT showed he needs O2 at 2L/M. Will order portable concentrat or. Patient is using O2 at home. I will check D dimer. History of exposure to second hand smoke 459178654 Z77.22 Patient has second hand smoking. Moderate p ersistent asthma 099208638 J45.40 He uses Ventolin but having significan t SOB. [id number] MD [facility] (Adult Med) [address] [place] [phone] 07/22/2018 12:36:17 07/23/2018 10:17:25 Diabetes mellitus 39177509 E11.40 Metformin messed his GI , Diarrhea. Type 2 janusz betes mellitus 39703860 E11.40 He can not tolerate the metformin which cause his stomach to be uncomforta ble, diarrhea and cramping. Secondary peripheral neuropathy 200125 G63 Can not walk since being D/C from ICU for respirator y failure. Asthma 695206590 J45.90 9 Under the care of his business account specialist . Chronic co ngestive heart failure 49409530 I50.9 Under the care of his cardiologi st. Chronic at rial fibrillation 354578110 I48.2 Under the care of his cardiologi st. 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 Has claustroph obia, will give one ativan prior to CAT scan. [id number] MD [facility] (Adult Med) [address] [place] [phone] 10/02/2018 15:51:24 10/03/2018 15:11:25 Type 2 diabetes mellitus 96747577 E11.40 He can not tolerate the metformin which cause his stomach to be uncomforta ble, diarrhea and cramping. Diabetic p eripheral neuropathy 312185144 E11.40 Discussed with patient, wanting up grade dose gabapentin . Chronic ob structive pulmonary disease 00859006 J44.9 History of partial lung collapsed, needs inhaler to breathe. Second hand smoker in the past. Tinea corporis 66989857 B35.4 [id number] Michelle Goodman MD [facility] [address] [place] [address] 10/24/2018 11:35:36 10/25/2018 14:37:28 Obstructive sleep apnea syndrome 57854446 G47.33 Patient is not on treatment. 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 02 Patient has 6MWT showed he needs O2 at 2L/M. Will order portable concentrat or. Patient is using O2 at home. I will check D dimer., homocystin e Moderate p ersistent asthma 234078099 J45.40 He uses Ventolin HFA but having significan t SOB. History of exposure to second hand smoke 319529456 Z77.22 Patient has second hand smoking. Diabetic p eripheral neuropathy 596180274 E11.40 On Gabapentin [id number] Vangie Tello MD [facility] (Adult Med) [address] [place] [address] 11/06/2018 15:22:10 11/06/2018 16:58:03 Type 2 diabetes mellitus 51214206 E11.40 He can not tolerate the metformin which cause his stomach to be uncomforta ble, diarrhea and cramping. Diabetic p eripheral neuropathy 376762826 E11.40 Discussed with patient, wanting up grade dose gabapentin . Chronic back pain 027643 002 M54.16 Stable. On gabapentin . Hernia of anterior abdominal wall 737826926 K43.9 Discussed with patient, agreed for the CAT scan. Has claustroph obia, will give one ativan prior to CAT scan. Chronic ob structive pulmonary disease 23123936 J44.9 History of partial lung collapsed, needs inhaler to breathe. Second hand smoker in the past. Wanting Alph-1 antitrypsi n screening. Diabetes mellitus 231539 09 E11.40 Metformin messed his GI , Diarrhea. Dyslipidem ia due to type 2 diabetes mellitus 8796522631 02 E78.5 Disorder of skin 3096037 [address], refill the cream. [id number] SUMEET MCKEON MD [facility] [address] [place] [address] 11/22/2018 11:15:02 11/25/2018 11:43:00 Hernia of anterior abdominal wall 146256730 K43.9 58M morbidly obese with anterior abdominal wall hernia. The optimal surgery wound include bariatrics and hernia repair. The patient has multiple comorbidit ies including COPD, on home oxygen, CHF and DM. I will refer him to a tertiary facility that can manage this complicate d patient. Morbid obesity 498876624 E66.01 [id number] [address] Tello MD [facility] (Adult Med) [address] [place] [address] 12/04/2018 11:42:11 12/04/2018 12:36:51 Nephropathy screening 191817531 Z13.89 Discussed with patient that his urine stik test is clean, but will send for culture as back up. Acute low back pain 2788 78273 M54.5 Discussed with patient, will try diclofenac ointment and PRN for ibuprofen. [id number] [facility] [address] [place] [address] 03/06/2019 10:38:24 03/06/2019 16:02:09 Obstructive sleep apnea syndrome 55935585 G47.33 Patient is not on treatment. AHI 24/hour, patient required BIPAp 18/8 with O2 4L/m into nasal mask. I will order Hypoxemia 050343277 R09. 02 Patient has 6MWT showed he needs O2 at 2L/M. Will order portable concentrat or. Patient is using O2 at home. 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 Dizziness 375018861 R42 I will check DDimer and CTA of chest [id number] MD [facility] (Adult Med) [address] [place] [address] 03/10/2019 16:51:00 03/10/2019 18:16:54 Dyspnea on exertion 20151999 R06.09 hypoxemia. oximetry is only 75%, he refuses to go to ER. 2018. Pulmonary CAT failed to show large vessel embolism. On aspirin. Generalize d abdominal pain 326525360 R10.84 Worse pain of abdomen, previous CAT of abdomen in october 2018 reported trans colon intrarpped but no bowel obstructio n. He refuses to go to ER.. [id number] [facility] [address] [place] [address] 04/10/2019 15:28:55 04/11/2019 12:28:48 Chronic low back pain 609417623 M54.5 He insists to have nephrology referral; Chronic di sease of skin 126970061 L98.9 He insists to see a dermatolog ist. Administra tion of influenza vaccine 18376172 Z23 He tolerated short well. [id number] [facility] [address] [place] [address] 05/06/2019 16:29:56 05/07/2019 10:17:38 Acute respiratory infections 122147659 J22 [id number] [facility]angie [facility] [address] [place] [address] 06/25/2019 15:47:35 06/25/2019 17:14:35 Chronic low back pain 662861636 M54.5 He insists to have nephrology referral; but spinal vertebrae disorder, will proced CAT of lumbar spine. Hearing disorder 9079985 05 H91.90 [facility], Cramping pain 228106057 R52 Discussed with patient. Diabetic p eripheral neuropathy 035537891 E11.40 Discussed with patient, wanting up grade dose gabapentin . Administra tion of influenza vaccine 82725967 Z23 He tolerated short well. [id number] [facility]angie [facility]ello [facility] [address] [place] [address] 07/16/2019 16:43:15 07/16/2019 17:46:11 Cellulitis 626717687 L03.90 Swelling gum. [id number] Karli Paniagua MD [facility] (Adult Med) [address] [place] [address] 08/26/2019 11:47:39 08/26/2019 17:12:55 Upper respiratory infection 40968844 J06.[id number] [facility] [address] [place] [address] 08/28/2019 09:17:52 09/15/2019 13:49:10 Obstructive sleep apnea syndrome 65744250 G47.33 Patient is on treatment. AHI 24/hour, patient required BIPAp 18/8 with O2 4L/m into nasal mask. I will adjust his pressure to 20/10 with 4L/M of O2 Hypoxemia 929367425 R09. 02 Patient has 6MWT showed he needs O2 at 2L/M. Will order portable concentrat or. Patient is using O2 at home. 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 Dizziness 349784154 R42 I will check DDimer and CTA of chest [id number] [facility] [address] [place] [address] 10/06/2019 13:55:45 10/07/2019 14:16:55 Chronic congestive heart failure 07276077 I50.9 Under the care of his cardiologi st. Diabetes mellitus 611778 09 E11.40 Metformin, regular formula, messed his GI , Diarrhea. Diabetic p eripheral neuropathy 523084902 E11.40 Discussed with patient, wanting up grade dose gabapentin . Dyslipidem ia due to type 2 diabetes mellitus 9260826363 02 E78.5 On low saturated fat diet, Moderate p ersistent asthma 739021059 J45.40 Has been stabilized with medication s. Tinea corporis 66678974 B35.4 Well maintained with powder. Degenerati ve joint disease involving multiple joints 881296470 M15.9 Wanting to refill the medication s. [id number] MD [facility] (Adult Med) [address] [place] [phone] 10/13/2019 09:37:54 10/14/2019 13:40:05 Hypokalemia 79744814 E87.6 Discussed with patient, will have blood potassium tested and refills of his potassium today. [id number] MD [facility] (Adult Med) [address] [place] [phone] 10/06/2020 12:32:53 10/07/2020 15:31:55 Chronic congestive heart failure 30548956 I50.9 Under the care of his cardiologi st. Diabetes mellitus 628733 E11.40 Metformin, regular formula, messed his GI , Diarrhea. Chronic ob structive pulmonary disease 68526749 J44.9 History of partial lung collapsed, needs inhaler to breathe. Second hand smoker in the past. Wanting Alph-1 antitryp sin screening. [id number] Vangie Tello MD [facility] (Adult Med) [address] [place] [phone] 10/11/2020 09:44:00 10/12/2020 10:42:19 Chronic congestive heart failure 86398742 I50.9 Under the care of his cardiologi st. Diabetes mellitus 401899 E11.40 Metformin, regular formula, messed his GI , Diarrhea. Chronic ob structive pulmonary disease 63225068 J44.9 History of partial lung collapsed, needs inhaler to breathe. Second hand smoker in the past. Wanting Alph-1 antitryp sin screening. Diabetic p eripheral neuropathy 009222002 E11.40 Discussed with patient, wanting up grade dose gabapentin . Dyslipidem ia due to type 2 diabetes mellitus 3645209295 02 E78.5 On low saturated fat diet, [id number] Vangie Tello MD [facility] (Adult Med) [address] [place] [address] 11/03/2020 12:18:43 11/04/2020 11:30:52 Chronic kidney disease stage 2 542094532 N18.2 Will order U/S of kidney and CMP to [facility] as he wishes before referring to nephrologi . Chronic co ngestive heart failure 36850556 I50.9 Under the care of his cardiologi st. Diabetes mellitus 709269 E11.40 Metformin, regular formula, messed his GI , Diarrhea. Refilled glimepirid e 4 mg 2 pills bid, ordered yesterday. Diabetic p eripheral neuropathy 417282059 E11.40 Discussed with patient, wanting up grade dose gabapentin . [id number] [facility] [address] [address] 11/04/2020 11:44:29 11/04/2020 13:54:33 Moderate persistent asthma 933396981 J45.40 He uses Ventolin HFA but having significan t SOB., I will continue incruse ellipta and add Symbicort 160/4.5, I will recheck PFTs Restrictiv e lung disease 39997708 J98.4 FEV1 36%, FVC 32%, FEV1/FVC 87%, [...] since there is a narrow neck. Hypoxemia 124733166 R09. 02 Patient has 6MWT showed he needs O2 at 2L/M. Will order portable concentrat or. Patient is using O2 at home. I will check D dimer., homocystin e, I will check 6MWT Obstructiv e sleep apnea syndrome 98128859 G47.33 Patient is on treatment. AHI 24/hour, patient required BIPAp 18/8 with O2 4L/m into nasal mask. I will adjust his pressure to 20/10 with 4L/M of O2. He's feling the pressure is not enough, I will increase to 22/11 and geta download Morbid obesity 566183238 E66.01 Advised about diet and exercise for weight reduction Tolerant non-smoker 8773 9003 Z87.891 Patient has second hand smoking Dyspnea on exertion 6084 5006 R06.09 Multifacto rial Diabetic p eripheral neuropathy 260476301 E11.40 On Gabapentin Periodic l imb movement disorder 786409634 G47.61 On gabapentin - will increase dose to 400mg X3 Dizziness 288524565 R42 DDimer was negative and CTA negative Non-smoker 's second hand smoke syndrome 686132389 J98.4 [id number] Michelle Goodman MD [facility] [address] [place] [address] 11/11/2020 09:41:14 11/12/2020 11:24:45 Chest wall pain 241740442 R07.89 Etiology is unclear, I will check CTA Moderate p ersistent asthma 804969355 J45.40 He uses Ventolin HFA but having significan t SOB., I will continue incruse ellipta and add Symbicort 160/4.5, I will recheck PFTs Tolerant non-smoker 8773 9003 Z87.891 Patient has second hand smoking Obstructiv e sleep apnea syndrome 91238897 G47.33 Patient is on treatment. AHI 24/hour, patient required BIPAp 18/8 with O2 4L/m into nasal mask. I will adjust his pressure to 20/10 with 4L/M of O2. He's feling the pressure is not enough, I will increase to 22/11 and get a download and give the patient supplies Restrictiv e lung disease 10652289 J98.4 FEV1 36%, FVC 32%, FEV1/FVC 87%, [...] there is a narrow neck. Morbid obesity 737486755 E66.01 Advised about diet and exercise for weight reduction Hypoxemia 888263885 R09. 02 Patient has 6MWT showed he needs O2 at 2L/M. Will order portable concentrat or. Patient is using O2 at home. I will check D dimer., homocystin e, I will check 6MWT Dyspnea on exertion 6084 5006 R06.09 Multifacto rial Diabetic p eripheral neuropathy 706785620 E11.40 On Gabapentin Periodic l imb movement disorder 822740610 G47.61 On gabapentin - will increase dose to 400mg X3 Dizziness 808830965 R42 DDimer was negative and CTA negative [id number] MD [facility] (Adult Med) [address] [place] [phone] 06/03/2021 15:42:21 06/06/2021 13:11:47 Acute laryngitis 0559402 J04.0 Likes z pack. he said. Erectile dysfunction 860 190301 F52.21 Wants to try viagra. Advised him to consult his cardiologi st as well. He agreed. Pityriasis versicolor 56 449953 B36.0 Will try topical cream and dermatolog y referral. [id number] MD [facility] (Adult Med) [address] [place] [address] 07/07/2021 11:40:36 07/25/2021 12:36:26 Chronic congestive heart failure 13973480 I50.9 Under the care of his cardiologi st. Diabetes mellitus 512593 09 E11.40 Metformin, regular formula, messed his GI , Diarrhea. Refilled glimepirid e 4 mg 2 pills bid, ordered yesterday. Dyslipidem ia due to type 2 diabetes mellitus 9692250983 02 E78.5 On low saturated fat diet, Erectile dysfunction 860 673059 F52.21 Wants to try viagra. Advised him to consult his cardiologi st as well. He agreed., he siad his cardiologi st agreed, now he wants up dose. Pityriasis versicolor 56 807157 B36.0 Will try topical cream and dermatolog y referral. ! % terbinafin e not working he said , he used to try kanolotion Diabetic p eripheral neuropathy 152333746 E11.40 Discussed with patient, wanting up grade dose gabapentin . Type 2 janusz betes mellitus 85097273 E11.40 He can not tolerate the metformin which cause his stomach to be uncomforta ble, diarrhea and cramping. Chronic ob structive pulmonary disease 26208615 J44.9 History of partial lung collapsed, needs inhaler to breathe. Second hand smoker in the past. Wanting Alph-1 antitryp sin screening. Degenerati ve joint disease involving multiple joints 522561101 M15.9 Wanting to refill the medication s. Acid reflux 047065902 K2 1.9 Stable. Screening for malignant neoplasm of colon 043672765 Z12.11 He wants stool test. [id number] Vangie Tello MD [facility] (Adult Med) [address] [place] [phone] 08/05/2021 12:24:37 08/08/2021 09:17:47 Secondary erectile dysfunction 716012214 N52.39 He wants change viagra from 10/month 100 mg to 50 mg with 20 pills/georges h. Chronic co ngestive heart failure 58941938 I50.9 Under the care of his cardiologi st. Diabetes mellitus 678520 09 E11.40 Metformin, regular formula, messed his GI , Diarrhea. Refilled glimepirid e 4 mg 2 pills bid, ordered yesterday. Acid reflux 775333385 K2 1.9 Stable. Chronic ob structive pulmonary disease 02672034 J44.9 History of partial lung collapsed, needs inhaler to breathe. Second hand smoker in the past. Wanting Alph-1 antitryp sin screening. He agreed to D/C symbicort which has steroid . 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 Diabetic p eripheral neuropathy 820337580 E11.40 Discussed with patient, wanting up grade dose gabapentin . Type 2 janusz betes mellitus 67655779 E11.40 He can not tolerate the metformin which cause his stomach to be uncomforta ble, diarrhea and cramping. Dyslipidem ia due to type 2 diabetes mellitus 7208070228 02 E78.5 On low saturated fat diet, Degenerati ve joint disease involving multiple joints 352379453 M15.9 Wanting to refill the medication s. [id number] Vangie Tello MD [facility] (Adult Med) [address] [place] [address] 08/31/2021 12:02:59 09/01/2021 12:34:40 Chronic congestive heart failure 82035400 I50.9 Under the care of his cardiologi st., On [id number] e, needs potassium supplement . Tinea corporis 69565722 B35.4 Well maintained with powder. Erectile dysfunction 860 792950 F52.21 Wants to try viagra. Advised him to consult his cardiologi st as well. He agreed., he siad his cardiologi st agreed, now he wants up dose. Secondary erectile dysfunction 085866249 N52.39 He wants change viagra from 10/month 100 mg to 50 mg with 20 pills/georges h. Diabetes mellitus 166003 09 E11.40 Metformin, regular formula, messed his GI , Diarrhea. Refilled glimepirid e 4 mg 2 pills bid, ordered yesterday. Acid reflux 720810408 K2 1.9 Stable. Chronic ob structive pulmonary disease 18024570 J44.9 History of partial lung collapsed, needs inhaler to breathe. Second hand smoker in the past. Wanting Alph-1 antitryp sin screening. He agreed to D/C symbicort which has steroid . 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 Diabetic p eripheral neuropathy 321844999 E11.40 Discussed with patient, wanting up grade dose gabapentin . Type 2 janusz betes mellitus 07138770 E11.40 He can not tolerate the metformin which cause his stomach to be uncomforta ble, diarrhea and cramping. Dyslipidem ia due to type 2 diabetes mellitus 0744757774 02 E78.5 On low saturated fat diet, Degenerati ve joint disease involving multiple joints 341149579 M15.9 Wanting to refill the medication s. Pityriasis versicolor 56 215010 B36.0 Will try topical cream and dermatolog y referral. ! % terbinafin e not working he said , he used to try kanolotion , Still waiting the appointmen t of dermatolog y at [facility], he wants to find sooner and close dermatolog ist instead, advised to check with his insurance the lists of dermatolog ist in the [facility] work, then will try to refer, he agreed. 08-31-2021 . [id number] Vangie Tello MD [facility] (Adult Med) [facility] [place] [address] 10/07/2021 12:33:21 10/11/2021 07:41:46 Erectile dysfunction 315946741 F52.21 Wants to try viagra. Advised him to consult his cardiologi st as well. He agreed., he siad his cardiologi st agreed, now he wants up dose. Infection of skin and/or subcutaneous tissue 80305680 L08.9 He wants cream and bactrim for his skin over count of bacteria since his young . Chronic co ngestive heart failure 69406967 I50.9 Under the care of his cardiologi st., On jsggni6ykw e, needs potassium supplement . Diabetes mellitus 206025 09 E11.40 Metformin, regular formula, messed his GI , Diarrhea. Refilled glimepirid e 4 mg 2 pills bid, ordered yesterday. Chronic ob structive pulmonary disease 27109921 J44.9 History of partial lung collapsed, needs inhaler to breathe. Second hand smoker in the past. Wanting Alph-1 antitryp sin screening. He agreed to D/C symbicort which has steroid . 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 Degenerati ve joint disease involving multiple joints 841784214 M15.9 Wanting to refill the medication s. Acid reflux 006629407 K2 1.9 Stable. Diabetic p eripheral neuropathy 971393349 E11.40 Discussed with patient, wanting up grade dose gabapentin . Dyslipidem ia due to type 2 diabetes mellitus 7245145673 02 E78.5 On low saturated fat diet, [id number] ROSALINDA Layton (Peds) [address] [place] [phone] 01/16/2022 15:33:00 01/17/2022 12:11:00 Administration of SARS-CoV-2 mRNA vaccine 3434859904 Z23 [id number] MD Celeste Michaud (Adult Med) [address] [place] [phone] 01/16/2022 16:03:23 01/19/2022 10:53:06 Screening for malignant neoplasm of prostate 004217356 Z12.5 He agreed. Screening for malignant neoplasm of colon 521430497 Z12.11 He wants stool test. He has not turned in the test yet he said, Type 2 janusz betes mellitus 21091413 E11.40 He can not tolerate the metformin which cause his stomach to be uncomforta ble, diarrhea and cramping. HIV screening 505381164 Z11.4 He agreed to be tested. Cramping pain 707780908 R52 Discussed with patient. On diuretic , might have low magnesium , will check. Exposure t o Hepatitis B virus 200802239 Z20.5 Will check the hepatitis B. Secondary erectile dysfunction 339092236 N52.39 He wants change viagra from 10/month 100 mg to 50 mg with 20 pills/georges h. Obesity 979519507 E66.9 Advised to watch his diabetic diet, exercise and lose some weight, 12-27-2021. [id number] MD Celeste Michaud (Adult Med) [address] [place] [phone] 06/21/2022 15:38:22 06/22/2022 15:47:33 Thoracic back pain 767644977 M54.6 He wants chiropract or referral. He will see his cardiologi st on the end of this month. Wants some tylenol with codeine or hydrocodon . Eruption 730981032 R21 Skin keeps break out, cream not helping. wants dermatolog y referral. Diabetes mellitus 021791 09 E11.40 Metformin, regular formula, messed his GI , Diarrhea. Refilled glimepirid e 4 mg 2 pills bid, ordered yesterday. Screening for malignant neoplasm of colon 834196398 Z12.11 He wants stool test. He has not turned in the test yet he said, it , will reorder. Erectile dysfunction 860 100602 F52.21 Wants to try viagra. Advised him to consult his cardiologi st as well. He agreed., he siad his cardiologi st agreed, now he wants up dose. Dyslipidem ia due to type 2 diabetes mellitus 4195893129 02 E78.5 On low saturated fat diet, Congestive heart failure 67806653 I50.9 Under the care of his cardiologi st. [id number] Vangie Tello MD [facility] (Adult Med) [address] [place] [phone] 02/07/2023 17:11:12 02/09/2023 15:31:07 Type 2 diabetes mellitus 76733720 E11.40 He can not tolerate the metformin which cause his stomach to be uncomforta ble, diarrhea and cramping. Went thru med lists. needs potassium and magnesium, and up grate dose of pioglitazo ne . Chronic co ngestive heart failure 99148887 I50.9 Under the care of his cardiologi st., On wfcvsp6vvh e, needs potassium supplement . Diabetic p eripheral neuropathy 134730453 E11.40 Discussed with patient, wanting up grade dose gabapentin . Eruption 857529924 R21 Skin keeps break out, cream not helping. wants dermatolog y referral. Diabetes mellitus 991618 E11.40 Metformin, regular formula, messed his GI , Diarrhea. Refilled glimepirid e 4 mg 2 pills bid, ordered yesterday. Wants increase dose of pioglitazo ne. Screening for malignant neoplasm of colon 515845073 Z12.11 He wants stool test. He has not turned in the test yet he said, it , will reorder. He had it sitting his home for months. Re instructed to proceed the test. he said that he will do it. today r17-02-32. Erectile dysfunction 860 284351 F52.21 Wants to try viagra. Advised him to consult his cardiologi st as well. He agreed., he siad his cardiologi st agreed, now he wants up dose. Dyslipidem ia due to type 2 diabetes mellitus 6571933687 02 E78.5 On low saturated fat diet, Congestive heart failure 09540237 I50.9 Under the care of his cardiologi st. Acid reflux 635216262 K2 1.9 Stable. Chronic ob structive pulmonary disease 13000942 J44.9 History of partial lung collapsed, needs inhaler to breathe. Second hand smoker in the past. Wanting Alph-1 antitryp sin screening. He agreed to D/C symbicort which has steroid . 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 Cramping pain 894160188 R52 Discussed with patient. On diuretic , might have low magnesium , will check. Infection of skin and/or subcutaneous tissue 96512110 L08.9 He wants cream and bactrim for his skin over count of bacteria since his young . Allergic r eaction to bee sting [id number] T63.444A Will refill epinephrin e injection. Chronic th oracic back pain [id number] 40405 M54.6 Med refills. Obesity 145794381 E66.9 Advised to watch his diabetic diet, exercise and lose some weight, 12-27-2021. BMI is 38.7 as 02-07-23. [id number] MD Celeste Michaud (Adult Med) [address] [place] [address] 04/11/2023 16:11:30 04/12/2023 15:46:47 Administration of influenza vaccine [id number] Z23 He tolerated short well. Acute resp iratory infections 050534552 J22 congested sinus and throat. wants z pk Impacted c erumen in right ear [id number] 787013 H61.21 Wants [facility] to clean it. Hernia of anterior abdominal wall 128289837 K43.9 Discussed with patient, agreed for the CAT scan. Has claustroph obia, will give one ativan prior to CAT scan.He wants [facility] to take care of . Diabetes mellitus 596972 E11.40 Metformin, regular formula, messed his GI , Diarrhea. Refilled glimepirid e 4 mg 2 pills bid, ordered yesterday. Wants increase dose of pioglitazo ne. Chronic co ngestive heart failure 19205175 I50.9 Under the care of his cardiologi st., On uatlfw6dbn e, needs potassium supplement . Dyslipidem ia due to type 2 diabetes mellitus 9205524933 02 E78.5 On low saturated fat diet, Erectile dysfunction 860 404868 F52.21 Wants to try viagra. Advised him to consult his cardiologi st as well. He agreed., he siad his cardiologi st agreed, now he wants up dose. Cramping pain 027218322 R52 Discussed with patient. On diuretic , might have low magnesium , will check. Chronic th oracic back pain 2586495108 52969 M54.6 Med refills. Diabetic p eripheral neuropathy 813023661 E11.40 Discussed with patient, wanting up grade dose gabapentin . Chronic ob structive pulmonary disease 16244706 J44.9 History of partial lung collapsed, needs inhaler to breathe. Second hand smoker in the past. Wanting Alph-1 antitryp sin screening. He agreed to D/C symbicort which has steroid . 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 [id number] MD Celeste Michaud (Adult Med) [address] [place] [address] 07/25/2023 16:36:06 07/30/2023 11:15:49 Chronic atrial fibrillation 197447710 I48.20 Will go to [facility] for new cardiologi st. Diabetes mellitus 169280 E11.40 Metformin, regular formula, messed his GI , Diarrhea. Refilled glimepirid e 4 mg 2 pills bid, ordered yesterday. Wants increase dose of pioglitazo ne. Chronic co ngestive heart failure 74360844 I50.9 Under the care of his cardiologi st., On mjzjes4bpc e, needs potassium supplement . Chronic ob structive pulmonary disease 85968502 J44.9 History of partial lung collapsed, needs inhaler to breathe. Second hand smoker in the past. Wanting Alph-1 antitryp sin screening. He agreed to D/C symbicort which has steroid . 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 Acid reflux 754422120 K2 1.9 Stable. Diabetic p eripheral neuropathy 043939773 E11.40 Discussed with patient, wanting up grade dose gabapentin . Cramping pain 838603685 R52 Discussed with patient. On diuretic , might have low magnesium , will check. Dyslipidem ia due to type 2 diabetes mellitus 4316688621 02 E78.5 On low saturated fat diet, Erectile dysfunction 860 029481 F52.21 Wants to try viagra. Advised him to consult his cardiologi st as well. He agreed., he siad his cardiologi st agreed, now he wants up dose. Hernia of anterior abdominal wall 340973486 K43.9 Discussed with patient, agreed for the CAT scan. Has claustroph obia, will give one ativan prior to CAT scan.He wants [facility] to take care of . [id number] Michelle Goodman MD [facility] [address] [place] [address] 07/26/2023 11:19:15 07/26/2023 14:34:35 Moderate persistent asthma 257551402 J45.40 He uses Ventolin HFA but having significan t SOB., I will continue incruse ellipta and add Symbicort 160/4.5, I will recheck PFTs, he has been having trou ble with shortne s s o f b r e a t h . Tolerant non-smoker 8773 9008 Z87.891 Patient has second hand smoking Obstructiv e sleep apnea syndrome 40355966 G47.33 Patient is on treatment. AHI 24/hour, patient required BIPAp 18/8 with O2 4L/m into nasal mask. I will adjust his pressure to 20/10 with 4L/M of O2. He's feeling the pressure is not enough, I will get download of his CPAP. Restrictiv e lung disease 67808959 J98.4 FEV1 36%, FVC 32%, FEV1/FVC 87%, [...] there is a narrow neck. Morbid obesity 227170217 E66.01 Advised about diet and exercise for weight reduction Hypoxemia 011497902 R09. 02 Patient has 6MWT showed he needs O2 at 2L/M. Will order portable concentrat or. Patient is using O2 at home. 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 On gabapentin - will increase dose to 400mg X3 Dizziness 078768447 R42 DDimer was negative and CTA negative Health Concerns Section Related Observation LastModified by Organization Detai ls LastModified Time None Recorded Concern Status LastModified by Organization Details LastModified Time None Recorded Advance Directives Directive N: Payers Encounter Date Sequence Insurance Name Policy Number Policy Leon Covered Member ID Leon Member ID Guarantor Name 06/21/2022 1 [facility] ON OR AFTER 11/25/20 (MEDICAID REPLACEMENT - HMO) Mann Lemp [id number] Mann Lemp 02/07/2023 1 [facility] ON OR AFTER 11/25/20 (MEDICAID REPLACEMENT - HMO) Mann Lemp [id number] Mann Lemp 04/11/2023 1 [facility] ON OR AFTER 11/25/20 (MEDICAID REPLACEMENT - HMO) Mann Lemp [id number] Mann Lemp 07/25/2023 1 [facility] ON OR AFTER 11/25/20 (MEDICAID REPLACEMENT - HMO) Mann Lemp [id number] Mann Lemp 07/26/2023 1 [facility] ON OR AFTER 11/25/20 (MEDICAID REPLACEMENT - HMO) Mann Lemp [id number] Mann Lemp Notes Date Note Type Note Provider Name and Address Organization Details Recorded Time 06/21/2022 text/html Office visit,Allergic to glimepiride. History of type 2 DM, CHF, dyslipidemia skin eruption, upper back pain , and ED. Wants to refill med and referrals. Vangie Tello MD Attn: Accounting,[address] [place], [address], [facility] 06/21/2022 16:52:16 02/07/2023 text/html Office visit, allergic to glimepiride, check up and blood tests and med refills. Vangie Tello MD Attn: Accounting,[address] [place], [address], [facility] 02/07/2023 18:24:23 04/11/2023 text/html Office visit, allergic to glimepiride. Check up med refills. C/C1. respiratory track infection, 2. Right ear wax impacted. 3. Abdominal wall hernia getting bigger. No chest pain, some congestion of sinus, throat, want z PK. No fever, no other complaints, ROS as noted in HPI. Vangie Tello MD Attn: Accounting,[address] [place], [address], [facility] 04/11/2023 17:31:19 07/25/2023 text/html Office visit. allergic to glimepiride. history of type 2 DM, CHF, diabetic neuropathy, on oxygen , Check up and med refills. if any. No chest pain, no fever, no shortness of breath, regular appetite and Bowel habit. ROS as noted in HPI. Vangie Tello MD Attn: Accounting,[address] [facility], [place], [address], [facility] 07/25/2023 17:42:22 07/26/2023 text/html Patient is here for follow-up. He relates to me that his BiPAP machine is not giving him enough pressure. He has been having more shortness of breath. He has been having right shoulder pain and neck pain. He has not been in the office since October of 2020 Michelle Goodman MD [address] [place], [address], [facility] 07/26/2023 12:13:57
--- OUTSIDE RECORDS SUMMARY | 2024-08-29 14:50 | XMS_ITS | Continuity of Care Document ---
Author Organization [facility] Address [address] [place] [address] Phone Care Team Providers Care Acoustical Logging Engineer Name Role Phone James POPE, Inge Unavailable [...] A VENOUS GLUCOSE METHOD. Test performed at [facility] [place] [phone]: KAILEE SAUCEDA MT([facility]) Panel Description: POC HEMOGLOBIN A1C Final POC HEMOGLOBIN A1C 2008 13:51:0 0 6.1 % OF TOTAL HGB H Final NON-DIABETC <6.0 % Test performed at [facility] [place] [address]Rxjtkboe: KAILEE SAUCEDA MT([facility]) Advance Directives Directive Yes / No [...] Diagnoses Date Provider Providers Copied on Encounter [facility], [address], [place], [place], [address] , tel: [phone] [facility] abnormal glucose (chief complaint) Screening for diabetes mellitus [address] James Inge. [address], [place], [place], [address] , [place]. tel: [phone] OFFICE OUTPT NEW 30 MIN [facility], [address], [place], [place], [address] , [place] tel: [phone] [facility] sleep apnea (chief complaint) back pain (chief complaint) breathing problems (chief complaint) stomach bulging (chief complaint) left knee pain (chief complaint) Routine general medical examination at a health care facilityOverweight and obesityInsomnia with sleep apnea, unspecifiedShortness of breathRoutine general medical examination at a health care facility 2 [address] Inge[address], [place], [place], [address] , [place]. tel:[phone] Family History Family Member Type Diagnosis Age At Onset Mother Problem (finding) asthma Father Problem (finding) asthma Father Problem (finding) hypertension Payers Payer name Insurance type Covered alliance [...] Status Goal ALT. Due on due Goal Lipid Panel. Due on due Goal PSA. Due on due Goal BMP fasting. Due on due Goal AST. Due on due Goal Urinalysis. Due on due Referral Referred To: [address], [address] Ordered: Referral: [facility]. Radiology. Diagnostic testing. ordered Future Order: [...]
--- OUTSIDE RECORDS SUMMARY | 2024-08-29 14:50 | XMS_ITS | Referral Summary ---
Author Organization [place] [id number] [facility] Address [address] [place] [address] Care Team Providers Care Measuring Clerk Name Role Phone No, Physician Unavailable Vangie Valentine MD Primary Care Provider [phone] Allergies Active Allergy Reactions Criticality Noted Date [...] PELVIS W CONTRAST Routine 05/13/2018 12:00 AM MEDICAL REFERRAL COORDINATOR from Last 3 Months or Most Recently Relevant to Health Maintenance Results * CT Abdomen Pelvis W Contrast (05/13/2018 12:00 AM MEDICAL REFERRAL COORDINATOR) Anatomical Region Laterality Modality Body N/A Computed Tomogra phy 05/13/2018 Impressions 05/13/2018 2:50 AM MEDICAL REFERRAL COORDINATOR No acute findings in the abdomen or pelvis. THIS IS AN ELECTRONICALLY VERIFIED FINAL REPORT 05/13/2018 2:47 AM - Electronically signed by Mario Garcia M.D. RW T: Report ID: [id number] Reading Location: [place] [address] [EOD] Narrative 05/13/2018 2:50 AM MEDICAL REFERRAL COORDINATOR EXAM DESCRIPTION: CT Abd/Pelvis W IV Contrast [...] Mario Garcia M.D. RW T: Report ID: [id number] Reading Location: [id number] [EOD] Richardson Kilgore INDUSTRIAL CONTROLLER IMG CT PROCEDURES Final R esult from Last 3 Months or Most Recently Relevant to Health Maintenance Insurance [address] [facility] [address] [facility] [facility] MEDICARE ADVANTAGE Care Teams Measuring Clerk Relationship Specialty Start Date End Date Vangie Valentine MD [address] [place] [address] PCP - General Internal Medicine 06/11/19 No, Physician 05/18/18
--- OUTSIDE RECORDS SUMMARY | 2024-08-29 14:50 | XMS_ITS | Continuity of Care Document ---
Author Organization [facility] Address [address] [place] [address] Phone Care Team Providers Care Youth Minister Name Role Phone Tony Mchugh MD Unavailable [...] Copied on Encounter OFFICE/OUTPA TIENT VISIT, EST [facility], [address] [place] [address], [id number], tel:[phone] [facility] HTN (chief complaint) urinary frequency (chief complaint) urinary frequency (chief complaint) Afib (chief complaint) Dietary surveillance and counselingBP - High blood pressureSleep apneaAtrial fibrillationUrinary frequency [address] [place], [place], [address] , [place]. tel:[phone] Referring Provider: Tony Mchugh, [address] [place], [place], [address]. tel:[phone] PREV VISIT, NEW, AGE 40-64 [facility], [address], [place], [place], [address], [place] tel:[phone] [facility] Medicine Physical (chief complaint) Routine Medical ExamDietary surveillance and counselingRoutine Medical Exam [address] Jeison Jimenez. [address], [place], [place], [address] , [place]. tel:[phone] Family History Family Member Type Diagnosis Age At Onset Father Problem (finding) Coronary artery disease 75 Mother Problem (finding) COPD Brother Problem (finding) Alive and well Payers Payer name Insurance type Covered republican [...] Type Assessment Date assessment Dietary surveillance and alcohol and drug counselor ing assessment BP - High blood pressure 2014 assessment Sleep apnea assessment Atrial fibrillation assessment Urinary frequency Mental Status Date Cognitive Assessment Orientation - Calder ed to time, place, person, situation.
--- OUTSIDE RECORDS SUMMARY | 2024-08-29 14:50 | XMS_ITS | Clinical Summary ---
Author Organization [facility] Address [address] [place] [address] Care Team Providers Care Neighborhood Aide Name Role Phone Vangie Valentine MD Primary Care Provider [phone] Source Comments [facility],non-owned Affiliates and Associated Physician Practices is amultiple site organization consisting of ambulatory clinics and hospital sitesin [place], [place], [place] and [place]. This disclosure is being madepursuant to the Care Everywhere program and may not contain all information available regarding this patient. Last updated 18.[facility] Allergies Active Allergy Reactions Criticality Noted Date [...] Comments Blood Pressure 135/97 06/28/2023 8:35 AM SOFTWARE INTEGRATION DEVELOPER Pulse 90 06/28/2023 8:35 AM SOFTWARE INTEGRATION DEVELOPER Temperature 36.6 C (97.9 F) 06/28/2023 8:35 AM SOFTWARE INTEGRATION DEVELOPER Respiratory Rate - - Oxygen Saturation - - Inhaled Oxygen Concentration - - Weight 135.2 kg (298 lb) 06/28/2023 8:35 AM SOFTWARE INTEGRATION DEVELOPER Height 182.9 cm (6') 06/28/2023 8:35 AM SOFTWARE INTEGRATION DEVELOPER Body Mass Index 40.42 06/28/2023 8:35 AM SOFTWARE INTEGRATION DEVELOPER Plan of Treatment Health Maintenance Due Date [...] - 2023-2 5 season) 2024 01/16/2022, 08/19/2020 DEPRESSION SCREENING 05/28/2024 INFLUENZA VACCINE (Season Ended) 2025 04/11/2023, 07/03/2019, 04/10/2019 HEPATITIS B VACCINE Aged Out No longe r eligible based on patient's age to complete this topic HIB VACCINE Aged Out No longer eligi ble based on patient's age to complete this topic HPV VACCINE Aged Out No longer eligi ble based on patient's age to complete this topic MENINGOCOCCAL (Group B) VACCINE SHARED DECISION-MAKING Aged Out No longer eligible based on patient's age to complete this topic MENINGOCOCCAL GROUPS A/C/Y/W VACCINE Aged Out No longer eligible b ased on patient's age to complete this topic Care Teams Neighborhood Aide Relationship Specialty Start Date End Date Vangie Valentine MD [address] [place] [phone] PCP - General 08/18/21
== END 2024-08-29 14:45 | disposition home or self-care (01) ==
PROVIDERS: PCP Family Medicine; Visit Provider Nurse Practitioner Family
DX: R91.8 Other nonspecific abnormal finding of lung field (principal)
CPT/HCPCS: 71250

== ENCOUNTER 2024-09-01 01:06 | Day surgery (SDC) | payer MEDICARE, MEDICAID, SELFPAY ==
--- NOTE | 2024-06-23 15:39 | PC.NURSE ---
Report to the Outpatient Waiting Room, entrance under the green pavilion located off [facility], at time _11 AM on date __07/01/24 . Planned Procedure Time: __1 PM .? Time changes happen often and if your time is changed the preop area will call you the afternoon before. - You and your visitor will be asked to self-screen and do not enter if you have any COVID symptoms. Please call surgeon if you need to reschedule. - A mask is optional within the hospital at this time. Patients may have clear liquids (water, carbonated beverages, clear teas, apple juice) until 3 hours prior to surgery( 10 AM) with a maximum of 20 ounces. - No food from midnight until time of surgery and no smoking. This includes no chewing gum, candy or mints. Take only the following medications with a SIP of water on the morning of surgery: _INHALER,CARVEDILOL,DIGOXIN,GABAPENTIN DO NOT STOP ANY OF YOUR OTHER PRESCRIPTION MEDICATIONS PRIOR TO SURGERY EXCEPT THE FOLLOWING Medications to discontinue per physician ___XARELTO HOLD 2 DAYS PRE OP LAST DOSE 06/28/24 Please no make-up, nail arabic, hairspray, perfume, deodorant, or body powder the day of surgery.? No jewelry (including any body piercings) or valuables the day of surgery, leave them at home.? Please take a shower or bath the night before, or the morning of, surgery with an antibacterial soap.? Wear comfortable, loose fitting clothing.? Children are encouraged to wear pajamas. - Jewelry must be removed prior to entering the operating room.? Rings and piercings that are not removed may be cut off. - The hospital will not accept responsibility for valuables.? - Please leave all valuables, including medications, at home the day of surgery. If you are going home after surgery, a licensed charter bus driver must drive you home.? - NO public transportation without another adult if you receive anesthesia. - We recommend that an adult stay with you for 24 hours following discharge. - We also recommend that you do not drive, make important decision, drink alcoholic beverages, or take any drugs that were not prescribed by your health care provider for at least 24 hours after your discharge time. For Pediatric surgeries, we recommend two adults accompany the child home. Hold all vitamins and supplements for 3 days per anesthesiologist. Follow any additional instructions given to you from your surgeon. Telephone instructions given to __PATIENT and asked if any additional questions and then verbalized understanding. Patient advised to call surgeon office or pre surgery nurse liaison [phone] if any additional questions.
[2024-06-23 15:54] VITALS: BMI 37.6
--- OUTSIDE RECORDS SUMMARY | 2024-07-01 00:25 | XMS_ITS | Clinical Summary ---
Author Organization [facility] Address [address] [place] [address]. [place], [place] [address] [place] [address] Care Team Providers Care Hand Sprayer Name Role Phone Davi Alyce Garcia Primary Care Provide r Allergies Active Allergy Reactions Criticality Noted Date Comments Lidocaine Angioedema,Swelling Medium 11/25/2021 Active Problems Problem Noted Date Diagnosed Date Reducible bulge of abdominal wall 06/28/2023 Fatigue 09/09/2019 Morbid obesity ([facility]) 09/09/2019 Non-seasonal allergic rhinitis due to pollen Obstructive sleep apnea 09/09/2019 Pulmonary hypertension ([facility]) 020 History of pneumonia 05/18/2016 Hypoxemia 05/18/2016 Shortness of breath 05/18/2016 Sleep disorder 05/18/2016 Resolved Problems Problem Noted Date Diagnosed Date Resolved Date Non-smoker 09/09/2019 11/26/2023 Social History Tobacco Use Types Packs/Day Years Used Date Smoking Tobacco: Never Assessed Sex and Gender Information Value Date Recorded Sex Assigned at Not on file 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
--- OUTSIDE RECORDS SUMMARY | 2024-07-01 00:26 | XMS_ITS | Clinical Summary ---
Author Organization [id number] Address [address] [place] [address] Care Team Providers Care Circulation Clerk Name Role Phone No, Physician Unavailable Vangie Valentine MD Primary Care Provider [phone] Allergies Active Allergy Reactions Criticality Noted Date [...] Medical History Medical History Date Comments Diabetes ([facility]) Neuropathy ([facility]) Hypertension A-fib ([facility]) ([facility]) CHF (congestive heart failure) ([facility]) ([facility]) Family History Medical History Relation [...] PELVIS W CONTRAST Routine 05/13/2018 12:00 AM BODY MASKER from Last 3 Months or Most Recently Relevant to Health Maintenance Results * CT Abdomen Pelvis W Contrast (05/13/2018 12:00 AM BODY MASKER) Anatomical Region Laterality Modality Body N/A Computed Tomogra phy 05/13/2018 Impressions 05/13/2018 2:50 AM BODY MASKER ??No acute findings in the abdomen or pelvis. THIS IS AN ELECTRONICALLY VERIFIED FINAL REPORT 05/13/2018 2:47 AM - Electronically signed by Mario Garcia M.D. RW D: ??05/13/2018 2:47 AM T: Report ID: [id number] Reading Location: ??[id number] [EOD] Narrative 05/13/2018 2:50 AM BODY MASKER EXAM DESCRIPTION: ??CT Abd/Pelvis W IV Contrast [...] Mario Garcia M.D. RW T: Report ID: [id number] Reading Location: [place] [address] [EOD] Richardson Kilgore NP IMG CT PROCEDURES Final R esult from Last 3 Months or Most Recently Relevant to Health Maintenance Insurance [employer] Care Teams Circulation Clerk Relationship Specialty Start Date End Date Vangie Valentine MD [address] [place] [address] [address] [place] [address] PCP - General Internal Medicine 06/11/19 No, Physician 05/18/18
--- OUTSIDE RECORDS SUMMARY | 2024-07-01 00:26 | XMS_ITS | Referral Summary ---
Author Organization [facility] Address [address] [place] [address] Care Team Providers Care Insole Bottom Filler Name Role Phone Vangie Valentine MD Primary Care Provider [phone] Source Comments [facility],non-owned Affiliates and Associated Physician Practices is amultiple site organization consisting of ambulatory clinics and hospital sitesin [place], [place] and [place]. This disclosure is being madepursuant to the [...] Comments Blood Pressure 135/97 06/28/2023 8:35 AM CUSTOM GRINDER Pulse 90 06/28/2023 8:35 AM CUSTOM GRINDER Temperature 36.6 ??C (97.9 ??F) 06/28/2023 8:35 AM CS T Respiratory Rate - - Oxygen Saturation - - Inhaled Oxygen Concentration - - Weight 135.2 kg (298 lb) 06/28/2023 8:35 AM CUSTOM GRINDER Height 182.9 cm (6') 06/28/2023 8:35 AM CUSTOM GRINDER Body Mass Index 40.42 06/28/2023 8:35 AM CUSTOM GRINDER Plan of Treatment Not on file Care Teams Insole Bottom Filler Relationship Specialty Start Date End Date Vangie Valentine MD [address] [place] [phone] PCP - General 08/18/21
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
--- OUTSIDE RECORDS SUMMARY | 2024-07-01 00:26 | XMS_ITS | Patient Health Summary ---
Author Organization [facility] Address [address] [place] [address] Care Team Providers Care Reading Efficiency Course Director Name Role Phone Vangie Valentine MD Primary Care Provider [phone] Note from [facility],non-owned Affiliates and Associated Physician Practices is amultiple site organization consisting of ambulatory clinics and hospital sitesin [place], [place], [place]. This disclosure is being madepursuant to the Care Everywhere program and may not contain all information available regarding this patient. Last updated 18.[facility] Allergies * Lidocaine(Swelling) -Medium Criticality Medications * [...] Comments Blood Pressure 135/97 06/28/2023 8:35 AM AIR/OCEAN EXPORT CLERK Pulse 90 06/28/2023 8:35 AM AIR/OCEAN EXPORT CLERK Temperature 36.6 ??C (97.9 ??F) 06/28/2023 8:35 AM CS T Respiratory Rate - - Oxygen Saturation - - Inhaled Oxygen Concentration - - Weight 135.2 kg (298 lb) 06/28/2023 8:35 AM AIR/OCEAN EXPORT CLERK Height 182.9 cm (6') 06/28/2023 8:35 AM AIR/OCEAN EXPORT CLERK Body Mass Index 40.42 06/28/2023 8:35 AM AIR/OCEAN EXPORT CLERK Care Teams Reading Efficiency Course Director Relationship Specialty Start Date End Date Vangie Valentine MD [address] [place] [address] PCP - General 08/18/21
--- OUTSIDE RECORDS SUMMARY | 2024-07-01 00:26 | XMS_ITS | Data Portability ---
Author Organization [facility] Address [address] [place] [address] Care Team Providers Care Shoe Treer Name Role Phone VANGIE TELLO Primary Care Provider Assessment No assessment recorded. Plan of Treatment Reminders Order Date Submit Date Provider Last Modified By Organization Details Last Modified Time Details Appointments None recorded. Lab noninvasi ve colorecta l cancer DNA + occult blood screening , QL, stool 2022 023 [facility] (Cologuard Orders Only), [address], [address], [place], [address], 4 09:04:56 HbA1c (hemoglob in A1c), blood 2022 023 [facility] In-Office Order, Internal Use Only DO Not Attach Compendium DO Not Attach Compendium, Do Not Delete/merge, [id number] 3 16:28:51 HbA1c (hemoglob in A1c), blood 2022 023 [facility], [address], [address], [place], [address], 3 18:19:31 microalbu min/creat inine, mass ratio, urine 2022 023 [facility], [address], [address], [place], [address], 3 18:23:48 CMP, serum or plasma 2022 023 [facility], [address], [address], [place], [address], 3 18:23:48 lipid panel, serum 2022 023 [facility], [address], [address], [place], [address], 3 18:23:48 noninvasi ve colorecta l cancer DNA + occult blood screening , QL, stool 2022 023 [facility] (Cologuard Orders Only), [address], [address], [place], [address], 3 08:11:02 HbA1c (hemoglob in A1c), blood 2022 023 [facility] In-Office Order, Internal Use Only DO Not Attach Compendium DO Not Attach Compendium, Do Not Delete/merge, [id number] 3 17:30:48 Referral dermatolo gist referral 2022 023 [email or web address] [facility] Dermatology, [facility] [place], [address], 3 10:12:31 chiroprac tor referral - Please call patient for appointme nt, thanks! [address] [facility] - [place], [facility], [place], [address], 3 09:20:00 dermatolo gist referral [address] Dermatology, [facility] [place], [address], 4 05:08:46 otolaryng ologist referral - Please call patient for appointme nt,thanks ! [address] - Otolaryngology (Ent), [address] [place] [address] , [address], [place], [address], 4 05:08:47 general surgeon referral - General surgery for hernia of abdomen, please call patient for appointme nt,thanks ! [address] General Surgery, [address], [address], [place], [address], 4 05:08:47 cardiolog ist referral - Please call him for appointme nt, thanks! [address] Cardiology, [address] [place], [address], 4 05:08:48 Procedures pulmonary stress test, simple (PROC) [address] [facility] (Cardio Ekg), [address] [place], [address], 4 05:01:49 Surgeries None recorded. Imaging PFT, complete - W/ Post Bronchodi lator Spirometr y [address] [facility] (Cardio Ekg), [address] [place], [address], 4 05:01:48 Medication Orders Viagra 100 mg tablet 2022 023 [facility] #29774, [address] [place] [address], [place], [id number], 3 16:48:21 hydrocodo ne 10 mg-acetam inophen 325 mg tablet 2022 023 [facility] #31320, [address], [place], [id number], 3 17:00:31 pioglitaz one 30 mg tablet 2022 023 [facility] #53637, [address], [place], [id number], 3 17:22:06 simvastat in 40 mg tablet 2022 023 [facility] #30060, [address], [place], [id number], 3 16:48:21 magnesium oxide 400 mg (241.3 mg magnesium ) tablet 2022 023 [facility] #06023, [address], [place], [id number], 3 18:23:47 famotidin e 20 mg tablet 2022 023 [facility] #65703, [address], [place], [id number], 3 18:23:48 mupirocin 2 % topical ointment 2022 023 [facility] #82495, [address], [place], [id number], 3 18:23:46 aspirin 325 mg tablet,de layed release 2022 023 [facility] #70240, [address], [place], [id number], 3 18:23:50 pioglitaz one 45 mg tablet 2022 023 [facility] #23684, [address], [place], [id number], 3 18:23:47 ipratropi um 0.5 mg-albute rol 3 mg (2.5 mg base)/3 mL nebulizat ion soln 2022 023 [facility] #08717, [address], [place], [id number], 3 18:23:50 EpiPen 2-Mik 0.3 mg/0.3 mL injection , auto-inje ctor 2022 023 [facility] #81414, [address], [place], [id number], 3 18:23:49 ibuprofen 800 mg tablet 2022 023 [facility] #67675, [address], [place], [id number], 3 18:23:48 gabapenti n 800 mg tablet 2022 023 [facility] #09476, [address], [place], [id number], 3 18:23:49 Viagra 100 mg tablet 2022 023 [facility], [address] [place] [address], [id number], 4 16:53:25 simvastat in 40 mg tablet 2022 023 [facility] #43785, [address], [place], [id number], 3 18:23:46 carvedilo l 6.25 mg tablet 2022 023 [facility] #59875, [address], [place], [id number], 3 18:23:49 digoxin 250 mcg (0.25 mg) tablet 2022 023 [facility] #00462, [address], [place], [id number], 3 18:23:47 diltiazem CD 240 mg capsule,e xtended release 24 hr 2022 023 [facility] #29691, [address], [place], [id number], 3 18:23:50 furosemid e 40 mg tablet 2022 023 [facility] #04875, [address], [place], [id number], 3 18:23:51 potassium chloride ER 10 mEq tablet,ex tended release 2022 023 [facility] #04829, [address], [place], [id number], 3 18:23:49 magnesium oxide 400 mg (241.3 mg magnesium ) tablet 2022 023 [facility] #61300, [address] [facility] [place], [place], [id number], 17:30:58 pioglitaz one 45 mg tablet 2022 023 [facility] #42599, [address] [facility], [place], [place], [id number], 3 17:31:00 ipratropi um 0.5 mg-albute rol 3 mg (2.5 mg base)/3 mL nebulizat ion soln 2022 [facility] #09933, [address] [facility], [place], [place], [id number], 11/15/202 3 17:30:59 Symbicort 160 mcg-4.5 mcg/actua tion HFA aerosol inhaler 2022 023 [facility] #99464, [address], [place], [place], [id number], 3 17:30:57 ibuprofen 800 mg tablet 2022 023 [facility] #57272, [address], [place], [place], [id number], 3 17:30:59 Viagra 100 mg tablet 2022 023 [facility] #37913, [address], [place], [place], [id number], 3 17:19:55 gabapenti n 800 mg tablet 2022 023 [facility] #80384, [address], [place], [place], [id number], 3 17:30:57 simvastat in 40 mg tablet 2022 023 [facility] #35348, [address], [place], [place], [id number], 3 17:20:01 potassium chloride ER 10 mEq tablet,ex tended release 2022 023 [facility] #34078, [address], [place], [place], [id number], 3 17:19:58 Zithromax Z-Mik 250 mg tablet 2022 023 [facility] #39468, [address], [place], [place], [id number], 3 19:09:21 famotidin e 20 mg tablet 2023 024 [facility] #78591, [address], [place], [place], [id number], 4 17:25:57 magnesium oxide 400 mg (241.3 mg magnesium ) tablet 2023 024 [facility] #21849, [address], [place], [place], [id number], 4 17:25:58 Viagra 100 mg tablet 2023 024 [facility] #08772, [address], [place], [place], [id number], 4 17:25:58 gabapenti n 800 mg tablet 2023 024 [facility] #19506, [address], [place], [place], [id number], 4 17:25:57 aspirin 325 mg tablet,de layed release 2023 024 [facility] #58024, [address], [place], [place], [id number], 4 17:25:58 pioglitaz one 45 mg tablet 2023 024 [facility] #20880, [address], [place], [place], [id number], 4 17:25:58 simvastat in 40 mg tablet 2023 024 [facility] #86967, [address], [place], [place], [id number], 4 17:25:59 albuterol sulfate HFA 90 mcg/actua tion aerosol inhaler 2023 024 [facility] #34177, [address], [place], [place], [id number], 4 17:25:57 ipratropi um 0.5 mg-albute rol 3 mg (2.5 mg base)/3 mL nebulizat ion soln 2023 024 [facility] #17377, [address] , [place], [place], [id number], 4 17:25:56 Symbicort 160 mcg-4.5 mcg/actua tion HFA aerosol inhaler 2023 024 [facility] #26743, [address] , [place], [place], [id number], 4 17:25:59 carvedilo l 6.25 mg tablet 2023 024 [facility] #01569, [address] , [place], [place], [id number], 4 17:25:55 digoxin 250 mcg (0.25 mg) tablet 2023 024 [facility] #63745, [address] , [place], [place], [id number], 4 17:25:55 diltiazem CD 240 mg capsule,e xtended release 24 hr 2023 024 [facility] #34359, [address] , [place], [place], [id number], 4 17:25:57 furosemid e 40 mg tablet 2023 024 [facility] #38199, [address], [place], [place], [id number], 17:25:58 potassium chloride ER 10 mEq tablet,ex tended release 2023 [facility] #84229, [address], [place], [place], [id number], 17:25:56 Patient TargetsNo targets recorded. Patient Instructions Encounter Date Encounter Id Patient Instructions Last Modified By Organization Details Last Modified Time 06/21/2022 [id number] rash: care instructions sieh Not available 06/21/2022 16:28:52 healthy upper back: exercises si Not available 06/21/2022 16:28:52 heart failure: care instructions [facility] Not available 06/21/2022 16:48:06 learning about heart failure sieh Not available 06/21/2022 16:48:06 02/07/2023 [id number] learning about type 2 diabetes sieh Not available 02/07/2023 18:23:32 type 2 diabetes: care instructions [facility] Not available 02/07/2023 18:23:33 A healthy lifestyle: care [facility] Not available 02/07/2023 18:23:33 heart failure: care instructions [facility] Not available 02/07/2023 18:23:33 learning about heart failure sieh Not available 02/07/2023 18:23:33 rash: care instructions sieh Not available 02/07/2023 18:23:33 04/11/2023 [id number] influenza (flu) vaccine: care instructions sieh Not available 04/11/2023 18:37:40 hernia: care instructions sieh Not available 04/11/2023 16:59:50 07/25/2023 [id number] hernia: care instructions sieh Not available 07/25/2023 17:41:58 07/26/2023 [id number] sleep apnea: car e instructions ajamous Not [...] [facility], Encounter Date: 06/21/2022 Manager Gift Referral for E ruption Referring Physician: [facility]ello [facility], Encounter Date: 06/21/2022 Manager Gift Referral for E ruption Referring Physician: [facility], Encounter Date: 02/07/2023 General Surgeon Referral for Hernia of anterior abdominal wall General surgery for hernia of abdomen, please call patient for appointment,thanks! 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 Referring Physician: [facility]ie [facility], Encounter Date: 04/11/2023 Field Contractor Referral for Ch ronic atrial fibrillation Please call him for appointment, thanks! Referring Physician: [facility], Encounter Date: 07/25/2023 Results Created Date Observation Date Name Description Value Unit Range Abnormal Flag Note LastModifiedBy Organization Detail LastModifiedTime 06/21/19 24 06/21/2023 COLOG UARD cologuard result Cancel led - Order d not applic able Not Available [facility] (Cologuard Orders Only) [address], [place], [address], 06/21/2023 09:04:55 02/09/20 23 02/08/2023 COLOG UARD cologuard result Cancel led - Duplic ate Order not applic able Not Available [facility] (Cologuard Orders Only) [address], [place], [address], 02/08/2023 08:11:02 06/23/19 23 06/23/2022 COLOG UARD cologuard result Cancel led - Duplic ate Order not applic able Not Available [facility] (Cologuard Orders Only) [address], [place], [address], 06/23/2022 11:41:44 05/24/20 22 05/25/2022 DIABE ZORAN PATIE NT EDUCA TION pdf . Not Available [facility] ([facility]) [address] [facility], [place], [address], 05/25/2022 08:14:15 05/24/20 22 05/25/2022 HEMOG LOBIN A1C hemoglobin A1C 5.6 % 4.8-5. 6 Predi abete s: 5.7 - 6.4 Diabe zoran: >6.4 Glyce kai contr ol for adult s with diabe zoran: <7.0 Not Available [facility] ([facility]) [address] [place], [address], 05/25/2022 08:14:15 05/24/20 22 05/25/2022 MAGNE SIUM magnesium 1.8 mg/dL 1.6-2. 3 Not Available [facility] ([facility]) [address] [place], [address], 05/25/2022 08:14:16 05/24/20 22 05/25/2022 HBSAG SCREE N HBsAg screen Negati ve negati ve Not Available [facility] ([facility]) [address] [place], [address], 05/25/2022 08:14:16 05/24/20 22 05/25/2022 HEPAT ITIS B SURF AB QUANT hepatitis B surf Ab quant <3.1 mIU/m L immuni ty>9.9 below low normal Statu s of Immun ity Anti- HBs Level ----- ----- ----- --- ----- ----- ---- Incon siste nt with Immun ity 0.0 - 9.9 Consi stent with Immun ity >9.9 Not Available [facility] ([facility]) [address] [facility], [place], [address], 05/25/2022 08:14:17 05/24/20 22 05/25/2022 PROST ATE-S [...] t be inter prete d as absol venetie ira evide nce of the prese nce or absen ce of felipe foreman se. Not Available [facility] ([facility]) [address] [facility], [place], [address], 05/25/2022 08:14:18 05/24/20 22 05/25/2022 HIV AB/P2 4 AG WITH REFLE X HIV Ab/P24 Ag screen Non Reacti ve nonrea ctive HIV Negat javier HIV-1 /HIV- 2 antib odies and HIV-1 p24 antig en were NOT detec dolly. There is no labor atory evide nce of HIV infec tion. Not Available [facility] ([facility]) [address] [facility], [place], [address], 05/25/2022 08:14:18 06/21/19 23 06/21/2022 HbA1c (hemo globi n A1c), blood HbA1c 5.3% Not Available In-Office Order Internal Use Only DO Not Attach Compendium DO Not Attach Compendium, Do Not Delete/merge, [id number] 06/21/2022 16:21:07 04/11/20 23 04/11/2023 HbA1c (hemo globi n A1c), blood HbA1c 5.5% Not Available In-Office Order Internal Use Only DO Not Attach Compendium DO Not Attach Compendium, Do Not Delete/merge, [id number] 04/11/2023 17:30:33 09/26/19 24 09/24/2023 CPAP downl oad* No observ ation record ed. [facility] ([facility]) [address] [place], [address], 10/01/2023 12:01:21 Result Notes None recorded. Problems Name Problem SNOMED Code Status Onset Date Resolution Date Notes Provider Name and Address Organization Details Recorded Time Diabetes mellitus 04539012 Active 2017 Not Available [facility] 4 18:42:20 Chronic congestive heart failure 03529071 Active 2018 Not Available [facility] 4 18:42:20 Upper respiratory infection 39069424 Active 2019 Not Available [facility] 4 18:42:20 Problem Notes None recorded. Procedures Surgical History Date Name Laterality Status Provider Name and Address Organization Details Recorded Time Appendectomy completed Sandro Hernandez [place] - [facility] 12/18/2016 14:58:41 Imaging Results Imaging Date Name Status LastModified by Organiz ation Details LastModified Time 09/24/2023 CPAP download* completed [facility] ([facility]) [address] [place], [address], 10/01/2023 12:01:21 Procedure Notes None recorded. Medical Equipment None Reported. Allergies Allergen ID Allergen Name Allergen Category Reaction Reaction Severity Criticality Documentation Date Start Date Code Code System Note Provider Name and Address Organization Details Recorded Time 922089 glimepiri de medicatio n dizziness Not available Not available 01/16/2022 49530 RxNorm Not Available Not Available Not Available [...] Updated DateTime 3 182.88 cm 40.4 kg/m2 347842. 53 g 93 % 93 % 95 /min 126 mm[Hg] 80 mm[Hg] Anya Kraft, MA [facility] 3 15:57:27 Date Recorded Body height Body mass index (BMI) Body weight Heart rate Oxygen saturation Oxygen saturation in Arterial blood by Pulse oximetry Systolic blood pressure Diastolic blood pressure Provider Name and Address Organization Details Last Updated DateTime 3 182.88 cm 38.7 kg/m2 119091. 83 g 130 /min 98 % 98 % 143 mm[Hg] 77 mm[Hg] Taya Bryson MA [facility] 3 17:27:13 Date Recorded Body height Body mass index (BMI) Body weight Heart rate Oxygen saturation Oxygen saturation in Arterial blood by Pulse oximetry Systolic blood pressure Diastolic blood pressure Provider Name and Address Organization Details Last Updated DateTime 3 182.88 cm 40.1 kg/m2 427890. 34 g 93 /min 95 % 95 % 142 mm[Hg] 86 mm[Hg] Taya Bryson MA [facility] 3 16:26:09 Date Recorded Body height Body mass index (BMI) Body weight Heart rate Oxygen saturation Oxygen saturation in Arterial blood by Pulse oximetry Systolic blood pressure Diastolic blood pressure Provider Name and Address Organization Details Last Updated DateTime 4 182.88 cm 39.1 kg/m2 043029. 6 g 91 /min 95 % 95 % 142 mm[Hg] 80 mm[Hg] Taya Bryson MA [facility] 4 16:57:44 Date Recorded Body height Body mass index (BMI) Body weight Body temperature Respiratory rate Oxygen saturation Oxygen saturation in Arterial blood by Pulse oximetry Heart rate Systolic blood pressure Diastolic blood pressure Provider Name and Address Organization Details Last Updated DateTime 4 182.88 cm 39.2 kg/m2 389273. 19 g 98 [degF] 18 /min 96 % 96 % 88 /min 124 mm[Hg] 78 mm[Hg] Eufemia Cali LPN [facility] 4 11:57:42 Social History Question Answer Notes LastModified by Organizat ion Details LastModified Time Tobacco Smoking Status Never Smoker ROSALINDA Cope, [facility] 12/18/2016 15:01:06 Do You Have An Advance [...] Or The Highest Degree You Have Received? 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 No Information not available 11/03/2020 Do You Have A Medical Power Of Long Filler Cigar Roller Machine? No Information not available 07/26/2023 What Was [...] Anxious, Or Unable To Sleep At Night)? [id number] Information not available 04/11/2023 Do You Use [...] available 12/18 15:00:06 Medical History Condition Response High Blood Pressure Y Muscle, Joint, or Bone Problems Y High Cholesterol Y Kidney or Bladder Problems Y Heart Attack ([place]) Y Diabetes Y Asthma Y Immunizations Vaccine Type Date Status Note Provider Nam e and Address Organization Details Recorded Time COVID-19, mRNA, LNP-S, PF, 30 mcg/0.3 mL dose completed Not Available [facility] 07/02/2023 18:42:20 SARS-COV-2 (COVID-19) vaccine, UNSPECIFIED 1 completed Not Available [facility] 07/02/2023 18:42:20 Influenza, split virus, quadrivalent, preservative 9 completed Not Available [facility] 06/14/2019 02:38:45 Influenza, split virus, quadrivalent, preservative 0 completed Vj Atkins LPN null, [place] - [facility] 07/03/2019 11:52:46 COVID-19, mRNA, LNP-S, PF, 30 mcg/0.3 mL dose, deep-sucrose 2 completed Holly Peter MA null, [place] [facility] 01/16/2022 15:46:41 Influenza, split virus, quadrivalent, PF 3 completed Vangie Tello MD Attn: Accounting[address] [place], [address], [place] [facility] 04/11/2023 16:53:09 tetanus toxoid, unspecified formulation 7 completed Not Available [facility] 07/02/2023 18:42:20 Past Encounters Encounter ID Performer Location Encounter Start Date Encounter Closed Date Diagnosis/Indication Diagnosis SNOMED-CT Code Diagnosis ICD10 Code Diagnosis Note [id number] Vangie Tello MD [facility] (Adult Med) [address] [place] [phone] 12/18/2016 14:44:41 12/18/2016 16:45:09 Type 2 diabetes mellitus 35860949 E11.40 He can not tolerate the metformin which cause his stomach to be uncomforta ble, diarrhea and cramping. Diabetic p eripheral neuropathy 758127083 E11.40 Body mass index 40+ - severely obese 186082330 Z68.42 Diabetic diet, exercise and lose weight.kannan ling to try wellbutrin and naltrexone to lose weight. Chronic ob structive pulmonary disease 75151030 J44.9 History of partial lung collapsed, needs inhaler to breathe. Umbilical hernia 1755284 07 K42.9 Weight loss, will refer to surgeon in the future if his weight goes down. Screening for malignant neoplasm of colon 502282311 Z12.11 He refuses. Screening for malignant neoplasm of prostate 380414524 Z12.5 Coronary atherosclerosis 966244413 I25.83 Under the care of his cardiologi st [id number] Vangie Tello MD [facility] ([facility]) [address] [place] [address] 09/26/2017 12:08:48 09/26/2017 14:02:45 Diabetes mellitus 22344873 E11.40 Metformin messed his GI , Diarrhea. Chronic co ngestive heart failure 73211289 I50.9 Under the care of his cardiologi . Diabetic p eripheral neuropathy 272766052 E11.40 Exposure t o viral hepatitis 235511955 Z20.5 [id number] Michelle Goodman MD [facility] [address] [place] [id number] 06/17/2018 09:49:13 06/18/2018 15:36:46 Pulmonary hypertension 73568641 I27.20 Multifacto rial Dyspnea on exertion 6084 5006 R06.09 Multifacto rial Obstructiv e sleep apnea syndrome 49467504 G47.33 Patient is not on treatment Tolerant non-smoker 8773 9003 Z87.891 Patient has second hand smoking Edema of l ower extremity 487847942 R60.0 Multifacto rial Hypoxemia 113409925 R09. 02 Patient is using O2 at home [id number] Michelle Goodman MD [facility] [address] [place] [phone] 07/18/2018 11:25:15 07/18/2018 15:15:05 Obstructive sleep apnea syndrome 16757662 G47.33 Patient is not on treatment. His sleep study is not available to me. Dyspnea on exertion 6084 5006 R06.09 Multifacto rial Restrictiv e lung disease 13681468 J98.4 FEV1 36%, FVC 32%, FEV1/FVC 87%, BD-, TLC 43%, DLCO 47%, will add Combivent respimat to his regimen. I will get CXR on the patient. Tolerant non-smoker 8773 9003 Z87.891 Patient has second hand smoking Edema of l ower extremity 912027193 R60.0 Multifacto rial Hypoxemia 770707416 R09. 02 Patient has 6MWT showed he needs O2 at 2L/M. Will order portable concentrat or. Patient is using O2 at home. I will check D dimer. History of exposure to second hand smoke 978188332 Z77.22 Patient has second hand smoking. Moderate p ersistent asthma 285936818 J45.40 He uses Ventolin but having significan t SOB. [id number] MD [facility] (Adult Med) [address] [place] [phone] 07/22/2018 12:36:17 07/23/2018 10:17:25 Diabetes mellitus 37688680 E11.40 Metformin messed his GI , Diarrhea. Type 2 janusz betes mellitus 04615362 E11.40 He can not tolerate the metformin which cause his stomach to be uncomforta ble, diarrhea and cramping. Secondary peripheral neuropathy 878088 G63 Can not walk since being D/C from ICU for respirator y failure. Asthma 588260110 J45.90 9 Under the care of his record center specialist . Chronic co ngestive heart failure 22544267 I50.9 Under the care of his cardiologi st. Chronic at rial fibrillation 021309999 I48.2 Under the care of his cardiologi st. Restrictiv e lung disease 22884508 J98.4 Dyslipidem ia due to type 2 diabetes mellitus 9067456593 02 E78.5 Hernia of anterior abdominal wall 317590521 K43.9 Discussed with patient, agreed for the CAT scan. Has claustroph obia, will give one ativan prior to CAT scan. [id number] MD Celeste Michaud (Adult Med) [address] [place] [address] 0 10/02/2018 15:51:24 10/03/2018 15:11:25 Type 2 diabetes mellitus 18997897 E11.40 He can not tolerate the metformin which cause his stomach to be uncomforta ble, diarrhea and cramping. Diabetic p eripheral neuropathy 764343068 E11.40 Discussed with patient, wanting up grade dose gabapentin . Chronic ob structive pulmonary disease 78070795 J44.9 History of partial lung collapsed, needs inhaler to breathe. Second hand smoker in the past. Tinea corporis 73715700 B35.4 [id number] Michelle Goodman MD [facility] [address] [place] [address] 10/24/2018 11:35:36 10/25/2018 14:37:28 Obstructive sleep apnea syndrome 79517878 G47.33 Patient is not on treatment. 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 02 Patient has 6MWT showed he needs O2 at 2L/M. Will order portable concentrat or. Patient is using O2 at home. I will check D dimer., homocystin e Moderate p ersistent asthma 775758636 J45.40 He uses Ventolin HFA but having significan t SOB. History of exposure to second hand smoke 293619517 Z77.22 Patient has second hand smoking. Diabetic p eripheral neuropathy 074118618 E11.40 On Gabapentin [id number] Vangie Tello MD [facility] (Adult Med) [address] [place] [address] 11/06/2018 15:22:10 11/06/2018 16:58:03 Type 2 diabetes mellitus 46133974 E11.40 He can not tolerate the metformin which cause his stomach to be uncomforta ble, diarrhea and cramping. Diabetic p eripheral neuropathy 757239754 E11.40 Discussed with patient, wanting up grade dose gabapentin . Chronic back pain 583696 002 M54.16 Stable. On gabapentin . Hernia of anterior abdominal wall 632557252 K43.9 Discussed with patient, agreed for the CAT scan. Has claustroph obia, will give one ativan prior to CAT scan. Chronic ob structive pulmonary disease 25379759 J44.9 History of partial lung collapsed, needs inhaler to breathe. Second hand smoker in the past. Wanting Alph-1 antitrypsi n screening. Diabetes mellitus 784435 09 E11.40 Metformin messed his GI , Diarrhea. Dyslipidem ia due to type 2 diabetes mellitus 5820425228 02 E78.5 Disorder of skin 7460893 [address], refill the cream. [id number] SUMEET MCKEON MD [facility] [address] [place] [address] 11/22/2018 11:15:02 11/25/2018 11:43:00 Hernia of anterior abdominal wall 464675957 K43.9 58M morbidly obese with anterior abdominal wall hernia. The optimal surgery wound include bariatrics and hernia repair. The patient has multiple comorbidit ies including COPD, on home oxygen, CHF and DM. I will refer him to a tertiary facility that can manage this complicate d patient. Morbid obesity 818114352 E66.01 [id number] Vangie Tello MD [facility] (Adult Med) [address] [place] [address] 12/04/2018 11:42:11 12/04/2018 12:36:51 Nephropathy screening 834826764 Z13.89 Discussed with patient that his urine stik test is clean, but will send for culture as back up. Acute low back pain 2788 58020 M54.5 Discussed with patient, will try diclofenac ointment and PRN for ibuprofen. [id number] [facility] [address] [place] [address] 03/06/2019 10:38:24 03/06/2019 16:02:09 Obstructive sleep apnea syndrome 89618665 G47.33 Patient is not on treatment. AHI 24/hour, patient required BIPAp 18/8 with O2 4L/m into nasal mask. I will order Hypoxemia 588690784 R09. 02 Patient has 6MWT showed he needs O2 at 2L/M. Will order portable concentrat or. Patient is using O2 at home. 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 Dizziness 238654209 R42 I will check DDimer and CTA of chest [id number] MD Celeste Michaud (Adult Med) [address] [place] [address] 03/10/2019 16:51:00 03/10/2019 18:16:54 Dyspnea on exertion 18665878 R06.09 hypoxemia. oximetry is only 75%, he refuses to go to ER. 2018. Pulmonary CAT failed to show large vessel embolism. On aspirin. Generalize d abdominal pain 429525882 R10.84 Worse pain of abdomen, previous CAT of abdomen in october 2018 reported trans colon intrarpped but no bowel obstructio n. He refuses to go to ER.. [id number] Vangie Tello MD [facility] (Adult Med) [address] [place] [address] 04/10/2019 15:28:55 04/11/2019 12:28:48 Chronic low back pain 407146938 M54.5 He insists to have nephrology referral; Chronic di sease of skin 014998056 L98.9 He insists to see a dermatolog ist. Administra tion of influenza vaccine 41853243 Z23 He tolerated short well. [id number] [facility] [address] [place] [address] 05/06/2019 16:29:56 05/07/2019 10:17:38 Acute respiratory infections 769717348 J22 [id number] Vangie Tello MD [facility] (Adult Med) [address] [place] [address] 06/25/2019 15:47:35 06/25/2019 17:14:35 Chronic low back pain 331522069 M54.5 He insists to have nephrology referral; but spinal vertebrae disorder, will proced CAT of lumbar spine. Hearing disorder 9659941 05 H91.90 [facility] Cramping pain 839253715 R52 Discussed with patient. Diabetic p eripheral neuropathy 251253187 E11.40 Discussed with patient, wanting up grade dose gabapentin . Administra tion of influenza vaccine 03933934 Z23 He tolerated short well. [id number] Vangie Tello MD [facility] (Adult Med) [address] [place] [address] 07/16/2019 16:43:15 07/16/2019 17:46:11 Cellulitis 919487502 L03.90 Swelling gum. [id number] Karli Paniagua MD [facility] (Adult Med) [address] [place] [address] 08/26/2019 11:47:39 08/26/2019 17:12:55 Upper respiratory infection 34899155 J06.9 [id number] Michelle Goodman MD [facility] [address] [place] [address] 08/28/2019 09:17:52 09/15/2019 13:49:10 Obstructive sleep apnea syndrome 74536357 G47.33 Patient is on treatment. AHI 24/hour, patient required BIPAp 18/8 with O2 4L/m into nasal mask. I will adjust his pressure to 20/10 with 4L/M of O2 Hypoxemia 730396036 R09. 02 Patient has 6MWT showed he needs O2 at 2L/M. Will order portable concentrat or. Patient is using O2 at home. 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 Dizziness 594191890 R42 I will check DDimer and CTA of chest [id number] [facility] [address] [place] [address] 10/06/2019 13:55:45 10/07/2019 14:16:55 Chronic congestive heart failure 60266775 I50.9 Under the care of his cardiologi st. Diabetes mellitus 129550 09 E11.40 Metformin, regular formula, messed his GI , Diarrhea. Diabetic p eripheral neuropathy 399177443 E11.40 Discussed with patient, wanting up grade dose gabapentin . Dyslipidem ia due to type 2 diabetes mellitus 8841121418 02 E78.5 On low saturated fat diet, Moderate p ersistent asthma 168887716 J45.40 Has been stabilized with medication s. Tinea corporis 14900426 B35.4 Well maintained with powder. Degenerati ve joint disease involving multiple joints 303391969 M15.9 Wanting to refill the medication s. [id number] MD Celeste Michaud (Adult Med) [address] [place] [address] 10/13/2019 09:37:54 10/14/2019 13:40:05 Hypokalemia 88279694 E87.6 Discussed with patient, will have blood potassium tested and refills of his potassium today. [id number] MD Celeste Michaud (Adult Med) [address] [place] [address] 10/06/2020 12:32:53 10/07/2020 15:31:55 Chronic congestive heart failure 07187099 I50.9 Under the care of his cardiologi st. Diabetes mellitus 483557 E11.40 Metformin, regular formula, messed his GI , Diarrhea. Chronic ob structive pulmonary disease 83109548 J44.9 History of partial lung collapsed, needs inhaler to breathe. Second hand smoker in the past. Wanting Alph-1 antitryp sin screening. [id number] Vangie Tello MD [facility] (Adult Med) [address] [place] [address] 10/11/2020 09:44:00 10/12/2020 10:42:19 Chronic congestive heart failure 11800844 I50.9 Under the care of his cardiologi st. Diabetes mellitus 213100 E11.40 Metformin, regular formula, messed his GI , Diarrhea. Chronic ob structive pulmonary disease 90419788 J44.9 History of partial lung collapsed, needs inhaler to breathe. Second hand smoker in the past. Wanting Alph-1 antitryp sin screening. Diabetic p eripheral neuropathy 753549217 E11.40 Discussed with patient, wanting up grade dose gabapentin . Dyslipidem ia due to type 2 diabetes mellitus 9467366048 02 E78.5 On low saturated fat diet, [id number] Vangie Tello MD [facility] (Adult Med) [address] [place] [address] 11/03/2020 12:18:43 11/04/2020 11:30:52 Chronic kidney disease stage 2 129616951 N18.2 Will order U/S of kidney and CMP to [facility] as he wishes before referring to nephrologi . Chronic co ngestive heart failure 87453309 I50.9 Under the care of his cardiologi st. Diabetes mellitus 029119 E11.40 Metformin, regular formula, messed his GI , Diarrhea. Refilled glimepirid e 4 mg 2 pills bid, ordered yesterday. Diabetic p eripheral neuropathy 551634839 E11.40 Discussed with patient, wanting up grade dose gabapentin . [id number] [facility] [address] [address] 11/04/2020 11:44:29 11/04/2020 13:54:33 Moderate persistent asthma 257037216 J45.40 He uses Ventolin HFA but having significan t SOB., I will continue incruse ellipta and add Symbicort 160/4.5, I will recheck PFTs Restrictiv e lung disease 89280611 J98.4 FEV1 36%, FVC 32%, FEV1/FVC 87%, [...] since there is a narrow neck. Hypoxemia 426571431 R09. 02 Patient has 6MWT showed he needs O2 at 2L/M. Will order portable concentrat or. Patient is using O2 at home. I will check D dimer., homocystin e, I will check 6MWT Obstructiv e sleep apnea syndrome 04627251 G47.33 Patient is on treatment. AHI 24/hour, patient required BIPAp 18/8 with O2 4L/m into nasal mask. I will adjust his pressure to 20/10 with 4L/M of O2. He's feling the pressure is not enough, I will increase to 22/11 and geta download Morbid obesity 494293607 E66.01 Advised about diet and exercise for weight reduction Tolerant non-smoker 8773 9003 Z87.891 Patient has second hand smoking Dyspnea on exertion 6084 5006 R06.09 Multifacto rial Diabetic p eripheral neuropathy 943729942 E11.40 On Gabapentin Periodic l imb movement disorder 759696631 G47.61 On gabapentin - will increase dose to 400mg X3 Dizziness 623599937 R42 DDimer was negative and CTA negative Non-smoker 's second hand smoke syndrome 391010485 J98.4 [id number] Michelle Goodman MD [facility] [address] [place] [address] 11/11/2020 09:41:14 11/12/2020 11:24:45 Chest wall pain 471428952 R07.89 Etiology is unclear, I will check CTA Moderate p ersistent asthma 888260363 J45.40 He uses Ventolin HFA but having significan t SOB., I will continue incruse ellipta and add Symbicort 160/4.5, I will recheck PFTs Tolerant non-smoker 8773 9003 Z87.891 Patient has second hand smoking Obstructiv e sleep apnea syndrome 79636512 G47.33 Patient is on treatment. AHI 24/hour, patient required BIPAp 18/8 with O2 4L/m into nasal mask. I will adjust his pressure to 20/10 with 4L/M of O2. He's feling the pressure is not enough, I will increase to 22/11 and get a download and give the patient supplies Restrictiv e lung disease 45320267 J98.4 FEV1 36%, FVC 32%, FEV1/FVC 87%, [...] there is a narrow neck. Morbid obesity 791165367 E66.01 Advised about diet and exercise for weight reduction Hypoxemia 439076136 R09. 02 Patient has 6MWT showed he needs O2 at 2L/M. Will order portable concentrat or. Patient is using O2 at home. I will check D dimer., homocystin e, I will check 6MWT Dyspnea on exertion 6084 5006 R06.09 Multifacto rial Diabetic p eripheral neuropathy 747113417 E11.40 On Gabapentin Periodic l imb movement disorder 603371952 G47.61 On gabapentin - will increase dose to 400mg X3 Dizziness 436470249 R42 DDimer was negative and CTA negative [id number] MD Celeste Michaud (Adult Med) [address] [place] [address] 06/03/2021 15:42:21 06/06/2021 13:11:47 Acute laryngitis 3326117 J04.0 Likes z pack. he said. Erectile dysfunction 860 923934 F52.21 Wants to try viagra. Advised him to consult his cardiologi st as well. He agreed. Pityriasis versicolor 56 742101 B36.0 Will try topical cream and dermatolog y referral. [id number] MD Celeste Michaud (Adult Med) [address] [place] [address] 07/07/2021 11:40:36 07/25/2021 12:36:26 Chronic congestive heart failure 18526773 I50.9 Under the care of his cardiologi st. Diabetes mellitus 126281 09 E11.40 Metformin, regular formula, messed his GI , Diarrhea. Refilled glimepirid e 4 mg 2 pills bid, ordered yesterday. Dyslipidem ia due to type 2 diabetes mellitus 8357140471 02 E78.5 On low saturated fat diet, Erectile dysfunction 860 238845 F52.21 Wants to try viagra. Advised him to consult his cardiologi st as well. He agreed., he siad his cardiologi st agreed, now he wants up dose. Pityriasis versicolor 56 475237 B36.0 Will try topical cream and dermatolog y referral. ! % terbinafin e not working he said , he used to try kanolotion Diabetic p eripheral neuropathy 910006324 E11.40 Discussed with patient, wanting up grade dose gabapentin . Type 2 janusz betes mellitus 77158241 E11.40 He can not tolerate the metformin which cause his stomach to be uncomforta ble, diarrhea and cramping. Chronic ob structive pulmonary disease 34057123 J44.9 History of partial lung collapsed, needs inhaler to breathe. Second hand smoker in the past. Wanting Alph-1 antitryp sin screening. Degenerati ve joint disease involving multiple joints 089209459 M15.9 Wanting to refill the medication s. Acid reflux 777388930 K2 1.9 Stable. Screening for malignant neoplasm of colon 441410448 Z12.11 He wants stool test. [id number] Vangie Tello MD [facility] (Adult Med) [address] [place] [phone] 08/05/2021 12:24:37 08/08/2021 09:17:47 Secondary erectile dysfunction 746461745 N52.39 He wants change viagra from 10/month 100 mg to 50 mg with 20 pills/georges h. Chronic co ngestive heart failure 05194418 I50.9 Under the care of his cardiologi st. Diabetes mellitus 889857 09 E11.40 Metformin, regular formula, messed his GI , Diarrhea. Refilled glimepirid e 4 mg 2 pills bid, ordered yesterday. Acid reflux 239703962 K2 1.9 Stable. Chronic ob structive pulmonary disease 13375360 J44.9 History of partial lung collapsed, needs inhaler to breathe. Second hand smoker in the past. Wanting Alph-1 antitryp sin screening. He agreed to D/C symbicort which has steroid . 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 Diabetic p eripheral neuropathy 553036923 E11.40 Discussed with patient, wanting up grade dose gabapentin . Type 2 janusz betes mellitus 60777240 E11.40 He can not tolerate the metformin which cause his stomach to be uncomforta ble, diarrhea and cramping. Dyslipidem ia due to type 2 diabetes mellitus 7941093938 02 E78.5 On low saturated fat diet, Degenerati ve joint disease involving multiple joints 403602384 M15.9 Wanting to refill the medication s. [id number] Vangie Tello MD [facility] (Adult Med) [address] [place] [address] 0 08/31/2021 12:02:59 09/01/2021 12:34:40 Chronic congestive heart failure 32806650 I50.9 Under the care of his cardiologi st., On qvjbiv0jhp e, needs potassium supplement . Tinea corporis 84881909 B35.4 Well maintained with powder. Erectile dysfunction 860 387641 F52.21 Wants to try viagra. Advised him to consult his cardiologi st as well. He agreed., he siad his cardiologi st agreed, now he wants up dose. Secondary erectile dysfunction 340263981 N52.39 He wants change viagra from 10/month 100 mg to 50 mg with 20 pills/georges h. Diabetes mellitus 251211 09 E11.40 Metformin, regular formula, messed his GI , Diarrhea. Refilled glimepirid e 4 mg 2 pills bid, ordered yesterday. Acid reflux 272116236 K2 1.9 Stable. Chronic ob structive pulmonary disease 08374768 J44.9 History of partial lung collapsed, needs inhaler to breathe. Second hand smoker in the past. Wanting Alph-1 antitryp sin screening. He agreed to D/C symbicort which has steroid . 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 Diabetic p eripheral neuropathy 815099383 E11.40 Discussed with patient, wanting up grade dose gabapentin . Type 2 janusz betes mellitus 39367136 E11.40 He can not tolerate the metformin which cause his stomach to be uncomforta ble, diarrhea and cramping. Dyslipidem ia due to type 2 diabetes mellitus 4919079750 02 E78.5 On low saturated fat diet, Degenerati ve joint disease involving multiple joints 720574775 M15.9 Wanting to refill the medication s. Pityriasis versicolor 56 472732 B36.0 Will try topical cream and dermatolog y referral. ! % terbinafin e not working he said , he used to try kanolotion , Still waiting the appointmen t of dermatolog y at [facility], he wants to find sooner and close dermatolog ist instead, advised to check with his insurance the lists of dermatolog ist in the [facility], then will try to refer, he agreed. 08-31-2021 . [id number] Vangie Tello MD [facility] (Adult Med) [facility] [place] [address] 10/07/2021 12:33:21 10/11/2021 07:41:46 Erectile dysfunction 308561615 F52.21 Wants to try viagra. Advised him to consult his cardiologi st as well. He agreed., he siad his cardiologi st agreed, now he wants up dose. Infection of skin and/or subcutaneous tissue 30516789 L08.9 He wants cream and bactrim for his skin over count of bacteria since his young . Chronic co ngestive heart failure 70994792 I50.9 Under the care of his cardiologi st., On zobntv8eaz e, needs potassium supplement . Diabetes mellitus 444971 09 E11.40 Metformin, regular formula, messed his GI , Diarrhea. Refilled glimepirid e 4 mg 2 pills bid, ordered yesterday. Chronic ob structive pulmonary disease 22140463 J44.9 History of partial lung collapsed, needs inhaler to breathe. Second hand smoker in the past. Wanting Alph-1 antitryp sin screening. He agreed to D/C symbicort which has steroid . 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 Degenerati ve joint disease involving multiple joints 063791142 M15.9 Wanting to refill the medication s. Acid reflux 427525464 K2 1.9 Stable. Diabetic p eripheral neuropathy 039810469 E11.40 Discussed with patient, wanting up grade dose gabapentin . Dyslipidem ia due to type 2 diabetes mellitus 5123702478 02 E78.5 On low saturated fat diet, [id number] ROSALINDA Layton (Peds) [address] [place] [address] 97748[address] 0 01/16/2022 15:33:00 01/17/2022 12:11:00 Administration of SARS-CoV-2 mRNA vaccine 8073093097 Z23 [id number] MD Celeste Michaud (Adult Med) [address] [place] [phone] 0 01/16/2022 16:03:23 01/19/2022 10:53:06 Screening for malignant neoplasm of prostate 188084493 Z12.5 He agreed. Screening for malignant neoplasm of colon 844252991 Z12.11 He wants stool test. He has not turned in the test yet he said, Type 2 janusz betes mellitus 31202305 E11.40 He can not tolerate the metformin which cause his stomach to be uncomforta ble, diarrhea and cramping. HIV screening 040048441 Z11.4 He agreed to be tested. Cramping pain 737748199 R52 Discussed with patient. On diuretic , might have low magnesium , will check. Exposure t o Hepatitis B virus 578042614 Z20.5 Will check the hepatitis B. Secondary erectile dysfunction 070234718 N52.39 He wants change viagra from 10/month 100 mg to 50 mg with 20 pills/georges h. Obesity 604443928 E66.9 Advised to watch his diabetic diet, exercise and lose some weight, 12-27-2021. [id number] MD Cleeste Michaud (Adult Med) [address] [place] [phone] 0 06/21/2022 15:38:22 06/22/2022 15:47:33 Thoracic back pain 919049721 M54.6 He wants chiropract or referral. He will see his cardiologi st on the end of this month. Wants some tylenol with codeine or hydrocodon . Eruption 014053659 R21 Skin keeps break out, cream not helping. wants dermatolog y referral. Diabetes mellitus 835447 09 E11.40 Metformin, regular formula, messed his GI , Diarrhea. Refilled glimepirid e 4 mg 2 pills bid, ordered yesterday. Screening for malignant neoplasm of colon 049522533 Z12.11 He wants stool test. He has not turned in the test yet he said, it , will reorder. Erectile dysfunction 860 375789 F52.21 Wants to try viagra. Advised him to consult his cardiologi st as well. He agreed., he siad his cardiologi st agreed, now he wants up dose. Dyslipidem ia due to type 2 diabetes mellitus 3531840100 02 E78.5 On low saturated fat diet, Congestive heart failure 52943587 I50.9 Under the care of his cardiologi st. [id number] Vangie Tello MD [facility] (Adult Med) [address] [place] [address]25[address] 0 02/07/2023 17:11:12 02/09/2023 15:31:07 Type 2 diabetes mellitus 32672471 E11.40 He can not tolerate the metformin which cause his stomach to be uncomforta ble, diarrhea and cramping. Went thru med lists. needs potassium and magnesium, and up grate dose of pioglitazo ne . Chronic co ngestive heart failure 50066662 I50.9 Under the care of his cardiologi st., On kblmfk3ivi e, needs potassium supplement . Diabetic p eripheral neuropathy 262772326 E11.40 Discussed with patient, wanting up grade dose gabapentin . Eruption 583046653 R21 Skin keeps break out, cream not helping. wants dermatolog y referral. Diabetes mellitus 813765 E11.40 Metformin, regular formula, messed his GI , Diarrhea. Refilled glimepirid e 4 mg 2 pills bid, ordered yesterday. Wants increase dose of pioglitazo ne. Screening for malignant neoplasm of colon 132251065 Z12.11 He wants stool test. He has not turned in the test yet he said, it , will reorder. He had it sitting his home for months. Re instructed to proceed the test. he said that he will do it. today [id number]. Erectile dysfunction 860 142447 F52.21 Wants to try viagra. Advised him to consult his cardiologi st as well. He agreed., he siad his cardiologi st agreed, now he wants up dose. Dyslipidem ia due to type 2 diabetes mellitus [id number] 02 E78.5 On low saturated fat diet, Congestive heart failure 56980977 I50.9 Under the care of his cardiologi st. Acid reflux 814701629 K2 1.9 Stable. Chronic ob structive pulmonary disease 38551265 J44.9 History of partial lung collapsed, needs inhaler to breathe. Second hand smoker in the past. Wanting Alph-1 antitryp sin screening. He agreed to D/C symbicort which has steroid . 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 Cramping pain 202323777 R52 Discussed with patient. On diuretic , might have low magnesium , will check. Infection of skin and/or subcutaneous tissue 84044562 L08.9 He wants cream and bactrim for his skin over count of bacteria since his young . Allergic r eaction to bee sting 642652694 T63.444A Will refill epinephrin e injection. Chronic th oracic back pain 3942089789 82526 M54.6 Med refills. Obesity 646512912 E66.9 Advised to watch his diabetic diet, exercise and lose some weight, 12-27-2021. BMI is 38.7 as 02-07-23. [id number] MD Celeste Michaud (Adult Med) [address] [place] [address] 04/11/2023 16:11:30 04/12/2023 15:46:47 Administration of influenza vaccine 57765588 Z23 He tolerated short well. Acute resp iratory infections 437158521 J22 congested sinus and throat. wants z pk Impacted c erumen in right ear 1324684321 216491 H61.21 Wants [facility] to clean it. Hernia of anterior abdominal wall 395815979 K43.9 Discussed with patient, agreed for the CAT scan. Has claustroph obia, will give one ativan prior to CAT scan.He wants [facility] to take care of . Diabetes mellitus 846317 E11.40 Metformin, regular formula, messed his GI , Diarrhea. Refilled glimepirid e 4 mg 2 pills bid, ordered yesterday. Wants increase dose of pioglitazo ne. Chronic co ngestive heart failure 33306140 I50.9 Under the care of his cardiologi st., On osabyz4xua e, needs potassium supplement . Dyslipidem ia due to type 2 diabetes mellitus 9278480793 02 E78.5 On low saturated fat diet, Erectile dysfunction 860 653554 F52.21 Wants to try viagra. Advised him to consult his cardiologi st as well. He agreed., he siad his cardiologi st agreed, now he wants up dose. Cramping pain 520345240 R52 Discussed with patient. On diuretic , might have low magnesium , will check. Chronic th oracic back pain 4068708125 58750 M54.6 Med refills. Diabetic p eripheral neuropathy 297461857 E11.40 Discussed with patient, wanting up grade dose gabapentin . Chronic ob structive pulmonary disease 82676631 J44.9 History of partial lung collapsed, needs inhaler to breathe. Second hand smoker in the past. Wanting Alph-1 antitryp sin screening. He agreed to D/C symbicort which has steroid . 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 [id number] MD Celeste Michaud (Adult Med) [address] [place] [address] 07/25/2023 16:36:06 07/30/2023 11:15:49 Chronic atrial fibrillation 302916262 I48.20 Will go to [facility] for new cardiologi st. Diabetes mellitus 231106 E11.40 Metformin, regular formula, messed his GI , Diarrhea. Refilled glimepirid e 4 mg 2 pills bid, ordered yesterday. Wants increase dose of pioglitazo ne. Chronic co ngestive heart failure 14803458 I50.9 Under the care of his cardiologi st., On ebehtp8azj e, needs potassium supplement . Chronic ob structive pulmonary disease 58472096 J44.9 History of partial lung collapsed, needs inhaler to breathe. Second hand smoker in the past. Wanting Alph-1 antitryp sin screening. He agreed to D/C symbicort which has steroid . 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 Acid reflux 840878616 K2 1.9 Stable. Diabetic p eripheral neuropathy 978770604 E11.40 Discussed with patient, wanting up grade dose gabapentin . Cramping pain 484332338 R52 Discussed with patient. On diuretic , might have low magnesium , will check. Dyslipidem ia due to type 2 diabetes mellitus 5498396535 02 E78.5 On low saturated fat diet, Erectile dysfunction 860 859300 F52.21 Wants to try viagra. Advised him to consult his cardiologi st as well. He agreed., he siad his cardiologi st agreed, now he wants up dose. Hernia of anterior abdominal wall 660514832 K43.9 Discussed with patient, agreed for the CAT scan. Has claustroph obia, will give one ativan prior to CAT scan.He wants [facility] to take care of . [id number] Michelle Goodman MD [facility] [address] [place] [phone] 07/26/2023 11:19:15 07/26/2023 14:34:35 Moderate persistent asthma 878717297 J45.40 He uses Ventolin HFA but having significan t SOB., I will continue incruse ellipta and add Symbicort 160/4.5, I will recheck PFTs, he has been having trou ble with shortne s s o f b r e a t h . Tolerant non-smoker 8773 9002 Z87.891 Patient has second hand smoking Obstructiv e sleep apnea syndrome 02635825 G47.33 Patient is on treatment. AHI 24/hour, patient required BIPAp 18/8 with O2 4L/m into nasal mask. I will adjust his pressure to 20/10 with 4L/M of O2. He's feeling the pressure is not enough, I will get download of his CPAP. Restrictiv e lung disease 28495109 J98.4 FEV1 36%, FVC 32%, FEV1/FVC 87%, [...] there is a narrow neck. Morbid obesity 993946426 E66.01 Advised about diet and exercise for weight reduction Hypoxemia 853239651 R09. 02 Patient has 6MWT showed he needs O2 at 2L/M. Will order portable concentrat or. Patient is using O2 at home. 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 On gabapentin - will increase dose to 400mg X3 Dizziness 652736024 R42 DDimer was negative and CTA negative Health Concerns Section Related Observation LastModified by Organization Detai ls LastModified Time None Recorded Concern Status LastModified by Organization Details LastModified Time None Recorded Advance Directives Directive N: Payers Encounter Date Sequence Insurance Name Policy Number Policy Leon Covered Member ID Leon Member ID Guarantor Name 06/21/2022 1 [facility] ON OR AFTER 11/25/20 (MEDICAID REPLACEMENT - HMO) Mann Lemp [id number] Mann Lemp 02/07/2023 1 [facility] ON OR AFTER 11/25/20 (MEDICAID REPLACEMENT - HMO) Mann Lemp [id number] Mann Lemp 04/11/2023 1 [facility] ON OR AFTER 11/25/20 (MEDICAID REPLACEMENT - HMO) Mann Lemp [id number] Mann Lemp 07/25/2023 1 [facility] ON OR AFTER 11/25/20 (MEDICAID REPLACEMENT - HMO) Mann Lemp [id number] Mann Lemp 07/26/2023 1 [facility] ON OR AFTER 11/25/20 (MEDICAID REPLACEMENT - HMO) Mann Lemp [id number] Mann Lemp Notes Date Note Type Note Provider Name and Address Organization Details Recorded Time 06/21/2022 text/html Office visit,Allergic to glimepiride. History of type 2 DM, CHF, dyslipidemia skin eruption, upper back pain , and ED. Wants to refill med and referrals. Vangie Tello MD Attn: Accounting,[address] [place], [address], [facility] 06/21/2022 16:52:16 02/07/2023 text/html Office visit, allergic to glimepiride, check up and blood tests and med refills. Vangie Tello MD Attn: Accounting,[address] [place], [address], [facility] 02/07/2023 18:24:23 04/11/2023 text/html Office visit, allergic to glimepiride. Check up med refills. C/C1. respiratory track infection, 2. Right ear wax impacted. 3. Abdominal wall hernia getting bigger. No chest pain, some congestion of sinus, throat, want z PK. No fever, no other complaints, ROS as noted in HPI. Vangie Tello MD Attn: Accounting,[address] [place], [address], [facility] 04/11/2023 17:31:19 07/25/2023 text/html Office visit. allergic to glimepiride. history of type 2 DM, CHF, diabetic neuropathy, on oxygen , Check up and med refills. if any. No chest pain, no fever, no shortness of breath, regular appetite and Bowel habit. ROS as noted in HPI. Vangie Tello MD Attn: Accounting,[address] [facility], [place], [address], [facility] 07/25/2023 17:42:22 07/26/2023 text/html Patient is here for follow-up. He relates to me that his BiPAP machine is not giving him enough pressure. He has been having more shortness of breath. He has been having right shoulder pain and neck pain. He has not been in the office since October of 2020 Michelle Goodman MD [address] [place], [address], [facility] 07/26/2023 12:13:57
--- OUTSIDE RECORDS SUMMARY | 2024-07-01 00:26 | XMS_ITS | Referral Summary ---
Author Organization [place] [address] [facility] Address [address] [place] [address] Care Team Providers Care System Support Technician Name Role Phone No, Physician Unavailable Vangie Valentine MD Primary Care Provider [phone] Allergies Active Allergy Reactions Criticality Noted Date [...] PELVIS W CONTRAST Routine 05/13/2018 12:00 AM EXPEDITIONARY FIGHTING VEHICLE CREWMAN from Last 3 Months or Most Recently Relevant to Health Maintenance Results * CT Abdomen Pelvis W Contrast (05/13/2018 12:00 AM EXPEDITIONARY FIGHTING VEHICLE CREWMAN) Anatomical Region Laterality Modality Body N/A Computed Tomogra phy 05/13/2018 Impressions 05/13/2018 2:50 AM EXPEDITIONARY FIGHTING VEHICLE CREWMAN ??No acute findings in the abdomen or pelvis. THIS IS AN ELECTRONICALLY VERIFIED FINAL REPORT 05/13/2018 2:47 AM - Electronically signed by Mario Garcia M.D. RW D: ??05/13/2018 2:47 AM T: Report ID: [id number] Reading Location: ??[id number] [EOD] Narrative 05/13/2018 2:50 AM EXPEDITIONARY FIGHTING VEHICLE CREWMAN EXAM DESCRIPTION: ??CT Abd/Pelvis W IV Contrast [...] Mario Garcia M.D. RW T: Report ID: [id number] Reading Location: [place] [address] [EOD] Richardson Kilgore NP IMG CT PROCEDURES Final R esult from Last 3 Months or Most Recently Relevant to Health Maintenance Insurance [employer] [facility] IDPA MEDICARE [facility] MEDIC[facility] Address: [address] [address] [place] [address] Care Teams System Support Technician Relationship Specialty Start Date End Date Vangie Valentine MD [address] [place] [address] PCP - General Internal Medicine 06/11/19 No, Physician 05/18/18
--- OUTSIDE RECORDS SUMMARY | 2024-07-01 00:26 | XMS_ITS | Clinical Summary ---
Author Organization [facility] Address [address] [place] [address] Care Team Providers Care Orthopaedic Technologist Name Role Phone Vangie Valentine MD Primary Care Provider [phone] Source Comments [facility],non-owned Affiliates and Associated Physician Practices is amultiple site organization consisting of ambulatory clinics and hospital sitesin [place], [place], [place] and [place]. This disclosure is being madepursuant to the Care Everywhere program and may not contain all information available regarding this patient. Last updated 18.[facility] Allergies Active Allergy Reactions Criticality Noted Date [...] Comments Blood Pressure 135/97 06/28/2023 8:35 AM LITHARGE MILL OPERATOR Pulse 90 06/28/2023 8:35 AM LITHARGE MILL OPERATOR Temperature 36.6 ??C (97.9 ??F) 06/28/2023 8:35 AM CS T Respiratory Rate - - Oxygen Saturation - - Inhaled Oxygen Concentration - - Weight 135.2 kg (298 lb) 06/28/2023 8:35 AM LITHARGE MILL OPERATOR Height 182.9 cm (6') 06/28/2023 8:35 AM LITHARGE MILL OPERATOR Body Mass Index 40.42 06/28/2023 8:35 AM LITHARGE MILL OPERATOR Plan of Treatment Health Maintenance Due [...] age to complete this topic Care Teams Orthopaedic Technologist Relationship Specialty Start Date End Date Vangie Valentine MD [address] [place] [id number] PCP - General 08/18/21
--- NOTE | 2024-08-19 11:10 | PC.NURSE ---
Report to the Outpatient Waiting Room, entrance under the green pavilion located off [facility], at time _0700_ on date _[id number]_. Planned Procedure Time: _0900_.? Time changes happen often and if your time is changed the preop area will call you the afternoon before. - You and your visitor will be asked to self-screen and do not enter if you have any COVID symptoms. Please call surgeon if you need to reschedule. - A mask is optional within the hospital at this time. Patients may have clear liquids (water, carbonated beverages, clear teas, apple juice) until 3 hours prior to surgery with a maximum of 20 ounces. - No food from midnight until time of surgery and no smoking, or chewing tobacco (or any form of nicotine). No chewing gum, candy or mints. Take only the following medications with a SIP of water on the morning of surgery: __Carvidilol, Digoxin, Gabapentin, Breyna inhaler, Combivent inhaler, Azelastine nose spray and if needed Albuterol inhaler. DO NOT STOP ANY OF YOUR OTHER PRESCRIPTION MEDICATIONS PRIOR TO SURGERY EXCEPT THE FOLLOWING Hold all vitamins and supplements for 3 days per anesthesiologist. Medications to discontinue per physician ___Xarelto and Ibuprofen, patient to speak with Dr Corea about these during visit tomorrow.____ Date to take last dose Please no make-up, nail tuvaluan, hairspray, perfume, deodorant, or body powder the day of surgery.? No jewelry (including any body piercings) or valuables the day of surgery, leave them at home.? Please take a shower or bath the night before, or the morning of, surgery with an antibacterial soap.? Wear comfortable, loose fitting clothing.? - Jewelry must be removed prior to entering the operating room.? Rings and piercings that are not removed may be cut off. - The hospital will not accept responsibility for valuables.? - Please leave all valuables, including medications, at home the day of surgery. If you are going home after surgery, a licensed courier delivery driver must drive you home.? - NO public transportation without another adult if you receive anesthesia. - We recommend that an adult stay with you for 24 hours following discharge. - We also recommend that you do not drive, make important decision, drink alcoholic beverages, or take any drugs that were not prescribed by your health care provider for at least 24 hours after your discharge time. Follow any additional instructions given to you from your surgeon. Telephone instructions given to __Mark__and asked if any additional questions and then verbalized understanding. Patient advised to call surgeon office or pre surgery nurse liaison [phone] if any additional questions.
[2024-09-01] VITALS (12 sets, daily range): BP systolic 123–201; BP diastolic 87–130; PULSE 74–97; RESP 15–24; TEMP 36.4–36.8; O2SAT 91–100
--- OUTSIDE RECORDS SUMMARY | 2024-09-01 01:10 | XMS_ITS | Clinical Summary ---
Author Organization [facility] Address [facility] [place] [address] Care Team Providers Care Media Monitor Name Role Phone Davi Alyce Garcia Primary Care Provide r Allergies Active Allergy Reactions Criticality Noted Date Comments Lidocaine Angioedema,Swelling Medium 11/25/2021 Active Problems Problem Noted Date Diagnosed Date Reducible bulge of abdominal wall 06/28/2023 Fatigue 09/09/2019 Morbid obesity 09/09/2019 Non-seasonal allergic rhinitis due to pollen Obstructive sleep apnea 09/09/2019 Pulmonary hypertension ([facility] 020 History of pneumonia 05/18/2016 Hypoxemia 05/18/2016 Shortness of breath 05/18/2016 Sleep disorder 05/18/2016 Resolved Problems Problem Noted Date Diagnosed Date Resolved Date Non-smoker 09/09/2019 11/26/2023 Social History Tobacco Use Types Packs/Day Years Used Date Smoking Tobacco: Never Assessed Sex and Gender Information Value Date Recorded Sex Assigned at Not on file Legal Sex Male 11:15 PM [employer] Gender Identity Not on file Sexual Orientation [...] complete this topic Insurance MEDICARE Care Teams Media Monitor Relationship Specialty Start Date End Date Davi Alyce Garcia PA [address] [place] [address] PCP - General Physician [employer] [facility] 09/10/23
--- OUTSIDE RECORDS SUMMARY | 2024-09-01 01:10 | XMS_ITS | Continuity of Care Document ---
Author Organization [facility] Address [address] [place] [address] Phone Care Team Providers Care Certified Legal Secretary Specialist Name Role Phone James POPE, Inge Unavailable [...] A VENOUS GLUCOSE METHOD. Test performed at [facility] [place] [id number]: KAILEE SAUCEDA MT([facility]) Panel Description: POC HEMOGLOBIN A1C Final POC HEMOGLOBIN A1C 2008 13:51:0 0 6.1 % OF TOTAL HGB H Final NON-DIABETC <6.0 % Test performed at [facility] [facility] [place] [address]Kjjsekkk: KAILEE SAUCEDA MT([facility]) Advance Directives Directive Yes / No [...] Diagnoses Date Provider Providers Copied on Encounter [facility], [address], [place], [place], [address] , tel: [phone] [facility] abnormal glucose (chief complaint) Screening for diabetes mellitus [address] James Inge. [address], [place], [place], [address] , [place]. tel: [phone] OFFICE OUTPT NEW 30 MIN [facility], [address], [place], [place], [address] , [place] tel: [phone] [facility] sleep apnea (chief complaint) back pain (chief complaint) breathing problems (chief complaint) stomach bulging (chief complaint) left knee pain (chief complaint) Routine general medical examination at a health care facilityOverweight and obesityInsomnia with sleep apnea, unspecifiedShortness of breathRoutine general medical examination at a health care facility 2 [address], [place], [place], [address] , [place]. tel:[phone] Family History Family Member Type Diagnosis Age At Onset Mother Problem (finding) asthma Father Problem (finding) asthma Father Problem (finding) hypertension Payers Payer name Insurance type Covered green party ID Authoriza tion(s) No Information Social [...] Of Treatment Date Type Action Status Goal PSA. Due on due Goal ALT. Due on due Goal Urinalysis. Due on 09 due Goal Lipid Panel. Due on due Goal BMP fasting. Due on due Goal AST. Due on due Referral Referred To: [address], [address] Ordered: Referral: [facility]. Radiology. Diagnostic testing. ordered Future Order: [...]
--- OUTSIDE RECORDS SUMMARY | 2024-09-01 01:10 | XMS_ITS | Data Portability ---
Author Organization [facility] Address [address] [place] [address] Care Team Providers Care French Comber Name Role Phone JOAN TELLO Primary Care Provider [phone] Assessment Encounter Date Assessment Date Assessment LastModified [...] . Imaging None recorded . Medication Orders Toprol XL 50 mg tablet,e xtended release 2022 023 [facility] #[id number], [address], [place], [id number], 3 18:23:15 Xarelto 20 mg tablet 2020 021 [facility]81010, [address], [place], [id number], 1 13:03:44 furosemi de 40 mg tablet 2019 020 [facility], [address], [place], [id number], 0 15:47:14 aspirin 325 mg tablet 2019 020 [email or web address] [facility] #63183, [address], [place], [id number], 3 16:34:26 Cardizem CD 240 mg capsule, extended release 2019 INTERFACE [facility] #64428, [address], [place], [id number], 0 15:47:17 carvedil ol 6.25 mg tablet [address] [facility] #63900, [address], [place], [id number], 3 16:34:23 Digox 250 mcg (0.25 mg) tablet 2019 INTERFACE [facility] #36672, [address], [place], [id number], 0 15:47:14 simvasta tin 40 mg tablet 2019 020 INTERFACE [facility] #78636, [address], [place], [id number], 0 15:47:14 aspirin 325 mg tablet [address] [facility] #57465, [address], [place], [id number], 3 16:34:26 carvedil ol 6.25 mg tablet [address] [facility] #95887, [address], [place], [id number], 3 16:34:23 Digox 250 mcg (0.25 mg) tablet 2019 020 [facility], [address], [place], [id number], 0 12:27:53 Cardizem CD 240 mg capsule, extended release 2019 INTERFACE [facility] #44701, [address], [place], [id number], 0 12:27:51 simvasta tin 40 mg tablet 2019 020 INTERFACE [facility] #69966, [address], [place], [id number], 0 12:27:51 furosemi de 40 mg tablet 2019 INTERFACE [facility] #28771, [address], [place], [id number], 0 12:27:53 potassiu m chloride ER 10 mEq tablet,e xtended release 2019 INTERFACE [facility] #59319, [address], [place], [id number], 0 12:27:54 Patient TargetsNo targets recorded. Patient Instructions Encounter Date Encounter Id Patient Instructions Last Modified By Organization Details Last Modified Time 07/15/2019 [id number] Exercise advised. Low cholesterol diet advised. Low sodium diet advised. Not available 07/15/2019 12:12:37 Scribed by Tram [email or web address] Not available 07/15/2019 12:12:29 08/27/2019 [id number] Weight loss 20 pounds Exercise advised Low cholesterol diet advised Low sodium diet advised. [email or web address] Not available 08/27/2019 14:20:19 This document was scribed by DENY Brenneralli Not available 08/27/2019 14:20:26 09/21/2022 [id number] Weight loss 20 pounds Exercise advised Low cholesterol diet advised Low sodium diet advised. [email or web address] Not available 09/21/2022 16:33:54 Reason for Referral None Reported. Results Created Date Observation Date Name Description Value Unit Range Abnormal Flag Note LastModifiedBy Organization Detail LastModifiedTime 07/15/1907/15/2019 elect rocar diogr am No observ ation record ed. [email or web address] Not Available 07/30 16:22:05 08/12/19 20 08/04/2019 XR, chest No observ ation record ed. Not Available 08/11 09:23:54 08/12/19 20 08/04/2019 elect rocar diogr am No observ ation record ed. Not Available 08/11 09:58:39 08/27/19 20 08/04/2019 elect rocar diogr am No observ ation record ed. [email or web address] Not Available 2019 15:43:19 08/27/19 20 08/04/2019 XR, chest , 1 view No observ ation record ed. Not Available 08/26 16:18:28 11/26/19 21 11/19/2020 elect rocar diogr am No observ ation record ed. Not Available 11/25 11:32:25 07/10/19 23 06/27/2022 elect rocar diogr am No observ ation record ed. [email or web address] Not Available 2022 10:48:57 09/30/19 23 09/18/2022 , echoc ardio gram No observ ation record ed. [email or web address] Not Available 2022 12:46:06 Result Notes None recorded. Problems Name Problem SNOMED Code Status Onset Date Resolution Date Notes Provider Name and Address Organization Details Recorded Time History of obesity 425577609 Active 2016 Not Available [facility] 4 15:52:40 Edema 893995842 Active 2016 [facility] Available [facility] 4 15:52:41 Cardiac arrhythmia 722019777 Active 2016 Not Available [facility] 4 15:52:41 Acute anoxic encephalopath y 30209406 Active 2016 Not Available [facility] 4 15:52:41 Acute hypercapnic respiratory failure 751606656 Active 2016 Not Available [facility] 4 15:52:41 Community acquired pneumonia 533418366 Active 2016 Not Available [facility] 4 15:52:41 Benign essential hypertension 9967400 Active 2017 Not Available [facility] 4 15:52:40 Dyslipidemia 684741066 Active 2018 Not Available [facility] 4 15:52:41 Dyspnea on exertion 85388919 Active 2018 Not Available [facility] 4 15:52:41 Palpitations 10838643 Active 2015 Not Available [facility] 4 15:52:41 Paroxysmal atrial fibrillation 389447718 Active 2015 Not Available [facility] 4 15:52:41 Obstructive sleep apnea syndrome 10790056 Active 2015 not on CPAP ( only O2 at night) Not Available [facility] 4 15:52:41 Diabetes mellitus 61202177 Active 2015 Not Available [facility] 4 15:52:41 Congestive heart failure 49873408 Active 2015 Not Available [facility] 4 15:52:41 Hypersomnia 89117383 Active 2015 Not Available [facility] 4 15:52:41 Chronic obstructive pulmonary disease 84369537 Active 2015 Not Available [facility] 4 15:52:40 Asthma 527769170 Active 2015 Not Available [facility] 4 15:52:41 Gastroesophag eal reflux disease 485068572 Active 2015 Not Available [facility] 4 15:52:41 Morbid obesity 382866890 Active 2015 Not Available [facility] 4 15:52:41 Notes:Fracture of right hand ( secondary to lose of consciousnes ) (10/07) Problem Notes None recorded. Procedures Surgical History Date Name Laterality Status Provider Name and Address Organization Details Recorded Time Tonsillectomy/Alexia noidectomy completed Richardson M[place] - [facility] 10/18/2015 15:27:42 Appendectomy completed [facility] 10/18/2015 15:27:49 Orthopedic Surgery completed Richardson [facility] 10/18/2015 15:27:59 Imaging Results Imaging Date Name Status LastModified by Organization Details LastModified Time 07/15/2019 electrocardiogram completed Informa tion not available 07/31/2019 16:22:05 08/04/2019 [email or web address] no t available 08/12/2019 09:23:54 08/04/2019 electrocardiogram completed Informa tion not available 08/12/2019 09:58:39 08/04/2019 electrocardiogram completed [email or web address] Informa tion not available 08/27/2019 15:43:19 08/04/2019 XR, chest, 1 view completed Informa tion not available 08/27/2019 16:18:28 11/19/2020 electrocardiogram completed [email or web address] Informa tion not available 11/25/2020 11:32:25 06/27/2022 [...] swelling severe Not available 09/11/2016 [id number] RxNorm Tram stern [facility] 7 16:58:29 Medications Name Sig Start Date [...] Updated DateTime 0 182.88 cm 44.8 kg/m2 537874. 48 g 70 /min 90 % 90 % 130 mm[Hg] 90 mm[Hg] SIN RYDER [facility] 0 11:57:43 Date Recorded Body height Heart rate Oxygen saturation Oxygen saturation in Arterial blood by Pulse oximetry Systolic blood pressure Diastolic blood pressure Provider Name and Address Organization Details Last Updated DateTime 0 182.88 cm 100 /min 90 % 90 % 126 mm[Hg] 86 mm[Hg] My Perera [facility] 0 14:05:28 Date Recorded Body weight Oxygen saturation Oxygen saturation in Arterial blood by Pulse oximetry Heart rate Systolic blood pressure Diastolic blood pressure Provider Name and Address Organization Details Last Updated DateTime 1 129281. 63 g 94 % 94 % 110 /min 122 mm[Hg] 67 mm[Hg] SANTO PROCTOR [facility] 1 12:33:20 Date Recorded Body height Body mass index (BMI) Body weight Oxygen saturation Oxygen saturation in Arterial blood by Pulse oximetry Heart rate Systolic blood pressure Diastolic blood pressure Provider Name and Address Organization Details Last Updated DateTime 3 182.88 cm 40 kg/m2 842927. 47 g 94 % 94 % 81 /min 104 mm[Hg] 72 mm[Hg] JAYLA PRASAD [facility] 3 17:49:45 Date Recorded Body height Body mass index (BMI) Body weight Heart rate Respiratory rate Oxygen saturation Oxygen saturation in Arterial blood by Pulse oximetry Systolic blood pressure Diastolic blood pressure Provider Name and Address Organization Details Last Updated DateTime 3 182.88 cm 38.4 kg/m2 809253. 64 g 77 /min 16 /min 98 % 98 % 122 mm[Hg] 84 mm[Hg] Augie Salgado [facility] 3 16:01:01 Social History Question Answer Notes LastModified by Organizat ion Details LastModified Time Tobacco Smoking Status [facility] 15:34:26 Which Illicit Or Recreational Drugs [...] onary artery disease. Medical History Condition Response Diabetes Y Atrial Fibrillation Y Sleep Apnea Y Congestive Heart Failure (CHF) Y Hypertension Y COPD Y Past Encounters Encounter ID Performer Location Encounter Start Date Encounter Closed Date Diagnosis/Indication Diagnosis SNOMED-CT Code Diagnosis ICD10 Code Diagnosis Note [id number] Arsenio Amaya MD [facility] [address] [place] [address] 03/13/2016 16:20:46 03/14/2016 10:31:22 Benign essential hypertension 8362886 I10 with fair control Paroxysmal atrial fibrillation 733532613 I48.0 Now in NSR. {{On Full dose ASA* On ASA no need for anti coagulatio n Can not have anti coagulatio n due to bleeding Can not have anti coagulatio n due to risk of bleed}} Obstructiv e sleep apnea syndrome 02918694 G47.33 Will need Cpap [id number] Arsenio Amaya MD [facility] [address] [place] [address] 09/11/2016 15:55:04 09/12/2016 09:58:35 Chronic obstructive pulmonary disease 92771440 J44.9 Benign ess ential hypertension 2712758 I10 with fair control Paroxysmal atrial fibrillation 152438564 I48.0 Now in NSR. {{On Full dose ASA* On ASA no need for anti coagulatio n Can not have anti coagulatio n due to bleeding Can not have anti coagulatio n due to risk of bleed}} Obstructiv e sleep apnea syndrome 63158266 G47.33 Will need Cpap Hypertensive disorder 38 590772 I10 Congestive heart failure 44866205 I50.9 Palpitations 30385842 R0 0.2 [id number] Katherine Mazariegos Office [address] [place] [address] 06/17/2018 12:11:07 06/17/2018 13:51:43 Paroxysmal atrial fibrillation 424023178 I48.0 A-fib today wth RVR at 103 bpm.Will anticoagul ate with Eliquis. Continue Coreg and Cardizem. Has normal LV systolic function. He needs to be on Coumadin, but he had bleeding from that. Obstructiv e sleep apnea syndrome 14237513 G47.33 Will need Cpap. F/u with Dr. Goodman. Needs repeat sleep study. Chronic ob structive pulmonary disease 66365350 J44.[address] Goodman. Benign ess ential hypertension 2885582 I10 with fair control. Continue current regimen. Needs medication compliance . Diabetes mellitus 568605 09 E11.9 Borderline . Treatment and evaluation by primary care doctor. Discussed importance of adequate glycemic control to minimize cardiovasc ular disease progressio n. A1C goal of < 7% for type 2 DM Dyslipidemia 585893782 E 78.5 Needs to keep LDL less than 70, and HDL more than 40 Will get lipid profile results from PCP Congestive heart failure 20727647 I50.9 HF-pEFHad ECHO 05/13/18 showing normal LV size and functionCo ntinue lasix with daily compliance . Dyspnea on exertion 6084 5006 R06.09 Multifacto rial. Could be angina equivalent . Will obtain Lexiscan Myoview Stress Test to look for any ischemia. Patient cannot walk. Has a high [place] Risk score. Has Known CAD and/or CAD risk equivalent . Continue [place] [id number] MD Tahira Schaeffer Office [address] [address] 07/17/2018 15:25:46 07/17/2018 16:24:37 Dyspnea on exertion 31989186 R06.09 Multifacto rial. Could be angina equivalent . Will obtain Lexiscan Myoview Stress Test to look for any ischemia. Patient cannot walk. Has a high [place] Risk score. Has Known CAD and/or CAD risk equivalent . Continue maximal medical treatment and risk factor modificati on Chronic ob structive pulmonary disease 00021611 J44.[address] Goodman. Paroxysmal atrial fibrillation 458247590 I48.0 A-fib today. HR is well controlled on Cardizem. Continue full-dose ASA. Hyperlipidemia 37031206 E78.5 Benign ess ential hypertension 7062994 I10 with fair control. Continue current regimen. Needs medication compliance . Dyslipidemia 077369725 E 78.5 Needs to keep LDL less than 70, and HDL more than 40 Will get lipid profile results from PCP Diabetes mellitus 956221 09 E11.9 Borderline . Treatment and evaluation by primary care doctor. Discussed importance of adequate glycemic control to minimize cardiovasc ular disease progressio n. A1C goal of < 7% for type 2 DM Obstructiv e sleep apnea syndrome 03415670 G47.33 Will need Cpap. F/u with Dr. Goodman. Needs repeat sleep study. Chronic di astolic heart failure 613886455 I50.32 Had echo 05/13/18 ECHO: E/E prime ratio is 8-15 which is in the indetermin ate zone. Left ventricula r systolic function appears to be normal. No obvious regional wall motion abnormalit ies noted. The study was technicall y difficult. Congestive heart failure 73674477 I50.9 [id number] Arsenio Amaya MD [facility] [place] [place] [address] 01/21/2019 14:37:56 05/14/2019 11:21:11 Congestive heart failure 61163673 I50.9 Euvolemic. Low salt diet. Hyperlipidemia 24351402 E78.5 Needs to keep LDL less than 70, and HDL more than 40 Will get fasting lipids for follow up04/2017 TC 151, HDL 33, TR 101, LDL 98 Essential hypertension 46201313 I10 Controlled . Paroxysmal atrial fibrillation 569507874 I48.0 A-fib today. HR is well controlled on Cardizem. Continue full-dose ASA. Dizziness 903123454 R42 Likely due to AFIB. Dyspnea on exertion 6084 5006 R06.09 Multifacto rial. Could be angina equivalent .Dobutamin e Myoview stress test, pt can not walk. Has known coronary artery disease, with atypical symptoms now. Rest imaging was done 07/2018. WIll do stress imaging only.Terrance nue [place] [id number] Arsenio Amaya MD [facility] [place] [address] 07/15/2019 11:01:00 08/04/2019 18:30:17 Dyspnea on exertion 44112544 R06.09 Multifacto rial. Could be angina equivalent .03/12/19 Negative Dobutamine stress test for ischemia. Normal LV systolic function. LVEF 61 %Rest imaging was done 07/2018. WIll do stress imaging only.Terrance nue maximal medical treatment and risk factor modificati on Congestive heart failure 63485377 I50.9 Euvolemic. Low salt diet. Hyperlipidemia 81551832 E78.5 Needs to keep LDL less than 70, and HDL more than 40 Will get fasting lipids for follow up04/2017 TC 151, HDL 33, TR 101, LDL 98 Essential hypertension 04005194 I10 Controlled . Paroxysmal atrial fibrillation 625557388 I48.0 A-fib today. HR is well controlled on Cardizem. Continue full-dose ASA.pt. states that he is currently taking ASA 325 mg BID. consider albation if symptoms persist Dizziness 438934899 R42 Likely due to AFIB. [id number] Mirta Mazariegos Office [address] [place] [address] 08/27/2019 13:42:23 08/27/2019 14:45:48 Dyspnea on exertion 58492881 R06.09 Stable. 03/12/19 DOBUTAMINE : Negative Dobutamine Stress test for ischemia. Normal LV systolic function. LVEF 61% Hyperlipidemia 42224452 E78.5 Needs to keep LDL less than 70, and HDL more than 40 Will get fasting lipids for follow up04/2017 TC 151, HDL 33, TR 101, LDL 98 Essential hypertension 26685330 I10 Controlled . Paroxysmal atrial fibrillation 374967608 I48.0 Recent admission with bradycardi a. Now he is back on Cardizem, Digoxin and Coreg. CHADSVASC score 3. Consider starting AC. Currently on full dose ASA Obstructiv e sleep apnea syndrome 07743827 G47.33 On BIPAP. Edema of l ower extremity 426646174 R60.0 stable. Continue lasix, leg elevation, low salt diet. [id number] Daria Dontrell [facility] [address] [place] [address] 11/19/2020 12:24:06 11/19/2020 13:03:45 Paroxysmal atrial fibrillation 315727338 I48.0 Recent admission with bradycardi a. Now he is back on Cardizem, Digoxin and Coreg. CHADSVASC score 3.Stop ASAStart Xarelto Dyspnea on exertion 6084 5006 R06.09 Stable. Obtain echo to evaluate for structural /functiona l disease. 03/12/19 DOBUTAMINE : Negative Dobutamine Stress test for ischemia. Normal LV systolic function. LVEF 61% Hyperlipidemia 90958026 E78.5 Needs to keep LDL less than 70, and HDL more than 40 Will get fasting lipids for follow up04/2017 TC 151, HDL 33, TR 101, LDL 98 Essential hypertension 08812574 I10 Controlled . Obstructiv e sleep apnea syndrome 74995626 G47.33 On BIPAP. Edema of l ower extremity 758416234 R60.0 stable. Continue lasix, leg elevation, low salt diet. [id number] BRUNO THOMASRADHA [facility] [address] [place] [address] 06/27/2022 17:20:25 06/27/2022 18:24:45 Paroxysmal atrial fibrillation 297286578 I48.0 Recent admission with bradycardi a. Now [...] Normal LV systolic function. LVEF 61% Hyperlipidemia 29142555 E78.5 Needs to keep LDL less than 70, and HDL more than 40 Will get fasting lipids for follow up04/2017 TC 151, HDL 33, TR 101, LDL 98 Essential hypertension 66627115 I10 Controlled . Obstructiv e sleep apnea syndrome 86889066 G47.33 On BIPAP. Edema of l ower extremity 942643827 R60.0 increased to twice daily lasix 40 mg for one week then go back to 40 mg daily, leg elevation, low salt diet. [id number] Arsenio Amaya MD [facility] [address] [place] [address] 09/21/2022 15:55:44 09/21/2022 16:40:03 Paroxysmal atrial fibrillation 362486712 I48.0 Recent admission with bradycardi a. Now he is back on Cardizem, Digoxin and Coreg. CHADSVASC score 3. On Toprol xl 50 mg Dyspnea on exertion 6084 5006 R06.09 Normal Left ventricula r systolic function 03/12/19 DOBUTAMINE : Negative Dobutamine Stress test for ischemia. Normal LV systolic function. LVEF 61% Hyperlipidemia 92163003 E78.5 Needs to keep LDL less than 70, and HDL more than 40 Will get fasting lipids for follow up04/2017 TC 151, HDL 33, TR 101, LDL 98 Essential hypertension 83899274 I10 Controlled . Obstructiv e sleep apnea syndrome 98883636 G47.33 On BIPAP. Edema of l ower extremity 830792968 R60.0 On Lasix 40 mg daily, leg elevation, low salt diet. Health Concerns Section Related Observation LastModified by Organization Detai ls LastModified Time None Recorded Concern Status LastModified by Organization Details LastModified Time None Recorded Advance Directives Directive None Recorded Payers Encounter Date Sequence Insurance Name Policy Number Policy Leon Covered Member ID Leon Member ID Guarantor Name 07/15/2019 1 [facility] PRIOR TO 11/25/2020 (MEDICAID REPLACEMENT - HMO) Mann S Lemp [id number] Mann S Lemp 08/27/2019 1 [facility] PRIOR TO 11/25/2020 (MEDICAID REPLACEMENT - HMO) Mann S Lemp [id number] Mann S Lemp 11/19/2020 1 [facility] PRIOR TO 11/25/2020 (MEDICAID REPLACEMENT - HMO) Mann S Lemp [id number] Mann S Lemp 06/27/2022 1 [facility] ON OR AFTER 11/25/20 (MEDICAID REPLACEMENT - HMO) Mann S Lemp [id number] Mann S Lemp 09/21/2022 1 [facility] ON OR AFTER 11/25/20 (MEDICAID REPLACEMENT - HMO) Mann S Lemp [id number] Mann S Lemp Notes Date Note Type [...] No nausea and vomiting. He was at [facility] In April after a syncopal event with [...] HB 15.7, HT 49.9 CBC w/ diff 05-30-201805/30/18: HB 15.7, HT 49.9 05/26/2017 SOD 140, [...] leads. Poor R progression in chest leads. [facility] EKG 06/17/18: Atrial fibrilation with nonspecific T [...] with mild vascular congestion. Arsenio Amaya MD [address] [place], [address], [place] - [facility] 08/04/2019 18:30:16 08/27/2019 [...] here for hospital follow-up. He was in [facility] in 08/04/19 because of near syncope, found [...] side effects from medications. He was at [facility] In April after a syncopal event with [...] leads. Poor R progression in chest leads. [facility] EKG 06/17/18: Atrial fibrilation with nonspecific T [...] similar. Cardiomegaly with mild vascular congestion. Mirta Freiretimur [facility], [place] - [facility] 08/27/2019 15:47:16 11/19/2020 [...] at this time. Previously, He was in [facility] in 08/04/19 because of near syncope, found [...] side effects from medications. He was at [facility] In April after a syncopal event with [...] with slow ventricular response. ABN EKG EKG, 2/20/19:Prob A-FIB. Low voltage chest leads. Poor R progression in chest leads. [facility] EKG 06/17/18: Atrial fibrilation with nonspecific T [...] similar. Cardiomegaly with mild vascular congestion. Daria stern, [place] - [facility] 11/19/2020 13:09:09 06/27/2022 text/html 06/27/22CC : Car diac follow up a fib and dyspnea on year-old white man with chronic atrial fibrillation, [...] takes simvastatin 40 mg. Previously:He was in [facility] in 08/04/19 because of near syncope, found [...] on 4L cont O2. He was at [facility] In April after a syncopal event with [...] leads. Poor R progression in chest leads. [facility] EKG 06/17/18: Atrial fibrilation with nonspecific T [...] : Car diac follow up, dyspnea on [id number] year-old white man with chronic atrial fibrillation, [...] having more a fib. He was in [facility] in 08/04/19 because of near syncope, found [...] on 4L cont O2. He was at [facility] In April after a syncopal event with [...] leads. Poor R progression in chest leads. [facility] EKG 06/17/18: Atrial fibrilation with nonspecific T [...] mild vascular congestion. Arsenio Amaya MD [address] [place], [address], [facility] 09/21/2022 16:34:44
--- OUTSIDE RECORDS SUMMARY | 2024-09-01 01:11 | XMS_ITS | Continuity of Care Document ---
Author Organization [facility] Address [address] [place] [address] Phone Care Team Providers Care Java Application Engineer Name Role Phone Tony Mchugh MD Unavailable [...] Copied on Encounter OFFICE/OUTPA TIENT VISIT, EST [facility], [address] [place] [address], [id number], tel:[phone] [facility] HTN (chief complaint) urinary frequency (chief complaint) urinary frequency (chief complaint) Afib (chief complaint) Dietary surveillance and counselingBP - High blood pressureSleep apneaAtrial fibrillationUrinary frequency [address], [place], [id number] , [place]. tel:[phone] Referring Provider: Tony Mchugh, [place], [place], [id number]. tel:[phone] PREV VISIT, NEW, AGE 40-64 [facility], [address], [place], [place], [id number], [place] tel:[phone] [facility] Physical (chief complaint) Routine Medical ExamDietary surveillance and counselingRoutine Medical Exam [address], [place], [place], [id number] , [place]. tel:[phone] Family History Family Member Type Diagnosis Age [...] Type Assessment Date assessment Dietary surveillance and disability counselor ing assessment BP - High blood pressure 2014 assessment Sleep apnea assessment Atrial fibrillation assessment Urinary frequency Mental Status Date Cognitive Assessment Orientation - [place] ed to time, place, person, situation.
--- OUTSIDE RECORDS SUMMARY | 2024-09-01 01:11 | XMS_ITS | Clinical Summary ---
Author Organization [place] [id number] [place] [address] [place] [address] Care Team Providers Care Qual Field Manager Name Role Phone No, Physician Unavailable Vangie Valentine MD Primary Care Provider [phone] Allergies Active Allergy Reactions Criticality Noted Date [...] Hypertension A-fib (HCC) CHF (congestive heart failure) ([facility]) Family History Medical History Relation Name [...] PELVIS W CONTRAST Routine 05/13/2018 12:00 AM CHARGEBACK ANALYST from Last 3 Months or Most Recently Relevant to Health Maintenance Results * CT Abdomen Pelvis W Contrast (05/13/2018 12:00 AM CHARGEBACK ANALYST) Anatomical Region Laterality Modality Body N/A Computed Tomogra phy 05/13/2018 Impressions 05/13/2018 2:50 AM CHARGEBACK ANALYST No acute findings in the abdomen or pelvis. THIS IS AN ELECTRONICALLY VERIFIED FINAL REPORT 05/13/2018 2:47 AM - Electronically signed by Mario Garcia M.D. RW T: Report ID: [id number] Reading Location: [place] [address] [EOD] Narrative 05/13/2018 2:50 AM CHARGEBACK ANALYST EXAM DESCRIPTION: CT Abd/Pelvis W IV Contrast [...] Mario Garcia M.D. RW T: Report ID: [id number] Reading Location: [place] [address] [EOD] Richardson Kilgore NP IMG CT PROCEDURES Final R esult from Last 3 Months or Most Recently Relevant to Health Maintenance [place] [address] [place] [address] IDPA [employer] [facility] MEDICARE [facility] Address: [address] [address] [place] [address] Care Teams Qual Field Manager Relationship Specialty Start Date End Date Vangie Valentine MD [address] [place] [phone] PCP - General Internal Medicine 06/11/19 No, Physician 05/18/18
--- OUTSIDE RECORDS SUMMARY | 2024-09-01 01:11 | XMS_ITS | Data Portability ---
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 Plan of Treatment Reminders Order Date Submit Date Provider Last Modified By Organization Details Last Modified Time Details Appointments None recorded. Lab HbA1c (hemoglob in A1c), blood 2022 023 [facility] In-Office Order, Internal Use Only DO Not Attach Compendium DO Not Attach Compendium, Do Not Delete/merge, [id number] 3 17:30:48 HbA1c (hemoglob in A1c), blood 2022 023 [facility], [address], [address], [place], [address], 3 18:19:31 microalbu min/creat inine, mass ratio, urine 2022 023 [place] [facility], [address], [address], [place], [address], 3 18:23:48 CMP, serum or plasma 2022 023 [place] [facility], [address], [address], [place], [address], 3 18:23:48 lipid panel, serum 2022 023 [place] [facility], [address], [address], [place], [address], 3 18:23:48 noninvasi ve colorecta l cancer DNA + occult blood screening , QL, stool 2022 023 [facility] (Cologuard Orders Only), [address], [address], [place], [address], 3 08:11:02 noninvasi ve colorecta l cancer DNA + occult blood screening , QL, stool 2022 023 [facility] (Cologuard Orders Only), [address], [address], [place], [address], 4 09:04:56 HbA1c (hemoglob in A1c), blood 2022 023 [facility] In-Office Order, Internal Use Only DO Not Attach Compendium DO Not Attach Compendium, Do Not Delete/merge, [id number] 3 16:28:51 Referral cardiolog ist referral - Please call him for appointme nt, thanks! [address] Cardiology, [address] [place], [address], 4 05:08:48 otolaryng ologist referral - Please call patient for appointme nt,thanks ! [address] - Otolaryngology (Ent), [address] [facility] , [address], [place], [address], 4 05:08:47 general surgeon referral - General surgery for hernia of abdomen, please call patient for appointme nt,thanks ! [address] General Surgery, [address], [facility] [address], [place], [address], 4 05:08:47 dermatolo gist referral 2022 023 [email or web address] [facility] Dermatology, [address] [facility], [place], [address], 4 05:08:46 dermatolo gist referral 2022 023 [email or web address] [facility] Dermatology, [address] [facility], [place], [address], 3 10:12:31 chiroprac tor referral - Please call patient for appointme nt, thanks! [email or web address] [facility] [place], [address], [place], [address], 3 09:20:00 Procedures pulmonary stress test, simple (PROC) 2023 024 [facility] (Cardio Ekg), [address] [place], [address], 4 05:01:49 Surgeries None recorded. Imaging PFT, complete - W/ Post Bronchodi lator Spirometr y 2023 024 [facility] (Cardio Ekg), [address], [place], [address], 4 05:01:48 Medication Orders famotidin e 20 mg tablet 2023 024 [facility]99719, [address] [facility], [place], [place], [id number], 4 17:25:57 magnesium oxide 400 mg (241.3 mg magnesium ) tablet 2023 024 [facility] #18541, [address] , [place], [place], [id number], 4 17:25:58 Viagra 100 mg tablet 2023 024 [facility] #02413, [address], [place], [place], [id number], 4 17:25:58 gabapenti n 800 mg tablet 2023 024 [facility] #74739, [address], [place], [place], [id number], 4 17:25:57 aspirin 325 mg tablet,de layed release 2023 [facility] #09508, [address], [place], [place], [id number], 4 17:25:58 pioglitaz one 45 mg tablet 2023 024 [facility] #46428, [address], [place], [place], [id number], 4 17:25:58 simvastat in 40 mg tablet 2023 024 [facility] #74088, [address], [place], [place], [id number], 4 17:25:59 albuterol sulfate HFA 90 mcg/actua tion aerosol inhaler 2023 024 [facility] #66136, [address], [place], [place], [id number], 4 17:25:57 ipratropi um 0.5 mg-albute rol 3 mg (2.5 mg base)/3 mL nebulizat ion soln 2023 024 [facility] #95600, [address], [place], [place], [id number], 4 17:25:56 Symbicort 160 mcg-4.5 mcg/actua tion HFA aerosol inhaler 2023 024 [facility] #18661, [address], [place], [place], [id number], 4 17:25:59 carvedilo l 6.25 mg tablet 2023 024 [facility] #16721, [address], [place], [place], [id number], 4 17:25:55 digoxin 250 mcg (0.25 mg) tablet 2023 024 [facility] #73870, [address] , [place], [place], [id number], 4 17:25:55 diltiazem CD 240 mg capsule,e xtended release 24 hr 2023 024 [facility] #06714, [address] , [place], [place], [id number], 4 17:25:57 furosemid e 40 mg tablet 2023 024 [facility] #38534, [address] [place], [id number], 4 17:25:58 potassium chloride ER 10 mEq tablet,ex tended release 2023 024 [facility] #84160, [address], [id number], 4 17:25:56 magnesium oxide 400 mg (241.3 mg magnesium ) tablet 2022 023 [facility] #80028, [address] [place], [id number], 3 17:30:58 pioglitaz one 45 mg tablet 2022 [facility] #73727, [address], [place], [place], [id number], 3 17:31:00 ipratropi um 0.5 mg-albute rol 3 mg (2.5 mg base)/3 mL nebulizat ion soln 2022 023 [facility] #17513, [address], [place], [place], [id number], 3 17:30:59 Symbicort 160 mcg-4.5 mcg/actua tion HFA aerosol inhaler 2022 023 [facility] #27915, [address], [place], [place], [id number], 3 17:30:57 ibuprofen 800 mg tablet 2022 023 [facility] #76726, [address], [place], [place], [id number], 3 17:30:59 Viagra 100 mg tablet 2022 023 [facility] #12662, [address], [place], [place], [id number], 3 17:19:55 gabapenti n 800 mg tablet 2022 023 [facility] #77375, [address], [place], [place], [id number], 3 17:30:57 simvastat in 40 mg tablet 2022 023 [facility] #23817, [address], [place], [place], [id number], 3 17:20:01 potassium chloride ER 10 mEq tablet,ex tended release 2022 023 [facility] #02067, [address], [place], [place], [id number], 3 17:19:58 Zithromax Z-Mik 250 mg tablet 2022 023 [facility] #53289, [address], [place], [place], [id number], 3 19:09:21 magnesium oxide 400 mg (241.3 mg magnesium ) tablet 2022 023 [facility] #40634, [address] [place], [place], [id number], 3 18:23:47 famotidin e 20 mg tablet 2022 023 [facility] #07790, [address], [place], [id number], 3 18:23:48 mupirocin 2 % topical ointment 2022 023 [facility]74030, [address], [place], [id number], 3 18:23:46 aspirin 325 mg tablet,de layed release 2022 023 [facility] #60580, [address], [place], [id number], 3 18:23:50 pioglitaz one 45 mg tablet 2022 023 [facility] #57898, [address] [place], [place], [id number], 3 18:23:47 ipratropi um 0.5 mg-albute rol 3 mg (2.5 mg base)/3 mL nebulizat ion soln 2022 023 [facility] #00056, [address] [place], [place], [id number], 3 18:23:50 EpiPen 2-Mik 0.3 mg/0.3 mL injection , auto-inje ctor 2022 023 [facility] #50395, [address], [place], [id number], 18:23:49 ibuprofen 800 mg tablet 2022 023 [facility] #65656, [address], [place], [id number], 18:23:48 gabapenti n 800 mg tablet 2022 023 [facility] #11111, [address], [place], [id number], 18:23:49 Viagra 100 mg tablet 2022 023 [place] [facility], [address] [place] [address], [id number], 4 16:53:25 simvastat in 40 mg tablet 2022 023 [facility] #48419, [address] [place], [place], [id number], 3 18:23:46 carvedilo l 6.25 mg tablet 2022 023 [facility] #22924, [address], [place], [id number], 3 18:23:49 digoxin 250 mcg (0.25 mg) tablet 2022 023 [facility] #76418, [address], [place], [id number], 3 18:23:47 diltiazem CD 240 mg capsule,e xtended release 24 hr 2022 023 [facility] #35750, [address], [place], [id number], 3 18:23:50 furosemid e 40 mg tablet 2022 023 [facility] #94438, [address], [place], [id number], 3 18:23:51 potassium chloride ER 10 mEq tablet,ex tended release 2022 023 [facility] #25261, [address], [place], [id number], 3 18:23:49 Viagra 100 mg tablet 2022 023 [facility] #22055, [address], [place], [id number], 3 16:48:21 hydrocodo ne 10 mg-acetam inophen 325 mg tablet 2022 023 [facility] #70612, [address], [place], [id number], 3 17:00:31 pioglitaz one 30 mg tablet 2022 023 [facility] #46883, [address], [place], [id number], 17:22:06 simvastat in 40 mg tablet 2022 023 [facility] #12901, [address], [place], [id number], 16:48:21 Patient TargetsNo targets recorded. Patient Instructions Encounter Date Encounter Id Patient Instructions Last Modified By Organization Details Last Modified Time 06/21/2022 [id number] rash: care instructions [facility] Not available 06/21/2022 16:28:52 healthy upper back: exercises [facility] Not available 06/21/2022 16:28:52 heart failure: care instructions [facility] Not available 06/21/2022 16:48:06 learning about heart failure si Not available 06/21/2022 16:48:06 02/07/2023 [id number] learning about type 2 diabetes si Not available 02/07/2023 18:23:32 type 2 diabetes: care instructions [facility] Not available 02/07/2023 18:23:33 A healthy lifestyle: care instructions [facility] Not available 02/07/2023 18:23:33 heart failure: care instructions [facility] Not available 02/07/2023 18:23:33 learning about heart failure si Not available 02/07/2023 18:23:33 rash: care instructions sieh Not available 02/07/2023 18:23:33 04/11/2023 [id number] influenza (flu) vaccine: care instructions sieh Not available 04/11/2023 18:37:40 hernia: care instructions sieh Not available 04/11/2023 16:59:50 07/25/2023 [id number] hernia: care instructions sieh Not available 07/25/2023 17:41:58 07/26/2023 [id number] sleep apnea: car e instructions ajamous Not [...] [facility], Encounter Date: 06/21/2022 Seat Pack Inspector Referral for E ruption Referring Physician: Vangie Tello Internal Medicine, Encounter Date: 06/21/2022 Seat Pack Inspector Referral for E ruption Referring Physician: Vangie Tello Internal [facility], Encounter Date: 02/07/2023 General Surgeon Referral for Hernia of anterior abdominal wall General surgery for hernia of abdomen, please call patient for appointment,thanks! Referring Physician: Vangie Tello Internal Medicine, Encounter Date: 04/11/2023 Senior Living Advisor Referral fo r Impacted cerumen in right ear Please call patient for appointment,thanks! Referring Physician: Vangie Tello Internal Medicine, Encounter Date: 04/11/2023 Tubular Products Fabricator Referral for Ch ronic atrial fibrillation Please [...] Only) [address], [place], [address], 06/21/2023 09:04:55 02/09/20 23 02/08/2023 COLOG UARD cologuard result Cancel led - Duplic ate Order not applic able Not Available [facility] (Cologuard Orders Only) [address], [place], [address], 02/08/2023 08:11:02 06/23/19 23 06/23/2022 COLOG UARD cologuard result Cancel led - Duplic ate Order not applic able Not Available [facility] (Cologuard Orders Only) [address], [place], [address], 06/23/2022 11:41:44 05/24/20 22 05/25/2022 DIABE ZORAN PATIE NT EDUCA TION pdf . Not Available [facility] ([facility]) [address] [facility], [place], [address], 05/25/2022 08:14:15 05/24/20 22 05/25/2022 HEMOG LOBIN A1C hemoglobin A1C 5.6 % 4.8-5. 6 Predi abete s: 5.7 - 6.4 Diabe zoran: >6.4 Glyce kai contr ol for adult s with diabe zoran: <7.0 Not Available [facility] ([facility]) [address] [place], [address], 05/25/2022 08:14:15 05/24/20 22 05/25/2022 MAGNE SIUM magnesium 1.8 mg/dL 1.6-2. 3 Not Available [facility] ([facility]) [address] [place], [address], 05/25/2022 08:14:16 05/24/20 22 05/25/2022 HBSAG SCREE N HBsAg screen Negati ve negati ve Not Available [facility] ([facility]) [address] [place], [address], 05/25/2022 08:14:16 05/24/20 22 05/25/2022 HEPAT ITIS B SURF AB QUANT hepatitis B surf Ab quant <3.1 mIU/m L immuni ty>9.9 below low normal Statu s of Immun ity Anti- HBs Level ----- ----- ----- --- ----- ----- ---- Incon siste nt with Immun ity 0.0 - 9.9 Consi stent with Immun ity >9.9 Not Available [facility] ([facility]) [address] [facility], [place], [address], 05/25/2022 08:14:17 05/24/20 22 05/25/2022 PROST ATE-S [...] of felipe foreman se. Not Available [facility] ([facility]) [address] [facility], [place], [address], 05/25/2022 08:14:18 05/24/20 22 05/25/2022 HIV AB/P2 4 AG WITH REFLE X HIV Ab/P24 Ag screen Non Reacti ve nonrea ctive HIV Negat javier HIV-1 /HIV- 2 antib odies and HIV-1 p24 antig en were NOT detec dolly. There is no labor atory evide nce of HIV infec tion. Not Available [facility] ([facility]) [address] [facility], [place], [address], 05/25/2022 08:14:18 06/21/19 23 06/21/2022 HbA1c (hemo globi n A1c), blood HbA1c 5.3% Not Available In-Office Order Internal Use Only DO Not Attach Compendium DO Not Attach Compendium, Do Not Delete/merge, [id number] 06/21/2022 16:21:07 04/11/20 23 04/11/2023 HbA1c (hemo globi n A1c), blood HbA1c 5.5% Not Available In-Office Order Internal Use Only DO Not Attach Compendium DO Not Attach Compendium, Do Not Delete/merge, [id number] 04/11/2023 17:30:33 09/26/19 24 09/24/2023 CPAP downl oad* No observ ation record ed. [facility]) [address] [place], [id number], 10/01/2023 12:01:21 Result Notes None recorded. Problems Name Problem SNOMED Code Status Onset Date Resolution Date Notes Provider Name and Address Organization Details Recorded Time Diabetes mellitus 14701854 Active 2017 Not Available [facility] 4 18:42:20 Chronic congestive heart failure 55117240 Active 2018 Not Available [facility] 4 18:42:20 Upper respiratory infection 46113614 Active 2019 Not Available [facility] 4 18:42:20 Problem Notes None recorded. Procedures Surgical History Date Name Laterality Status Provider Name and Address Organization Details Recorded Time Appendectomy completed Sandro Hernandez MA ID - SIF 12/18/2016 14:58:41 Imaging Results Imaging Date Name Status LastModified by Organiz ation Details LastModified Time 09/24/2023 CPAP download* completed [facility] ([facility]) [address] [place], [address], 10/01/2023 12:01:21 Procedure Notes None recorded. Medical Equipment None Reported. Allergies Allergen ID Allergen Name Allergen Category Reaction Reaction Severity Criticality Documentation Date Start Date Code Code System Note Provider Name and Address Organization Details Recorded Time 773327 glimepiri de medicatio n dizziness Not available Not available 01/16/2022 15942 RxNorm Not Available Not Available Not Available [...] Updated DateTime 3 182.88 cm 40.4 kg/m2 200804. 53 g 93 % 93 % 95 /min 126 mm[Hg] 80 mm[Hg] Anya Kraft, MA [facility] 3 15:57:27 Date Recorded Body height Body mass index (BMI) Body weight Heart rate Oxygen saturation Oxygen saturation in Arterial blood by Pulse oximetry Systolic blood pressure Diastolic blood pressure Provider Name and Address Organization Details Last Updated DateTime 3 182.88 cm 38.7 kg/m2 958324. 83 g 130 /min 98 % 98 % 143 mm[Hg] 77 mm[Hg] Taya Bryson MA [facility] 3 17:27:13 Date Recorded Body height Body mass index (BMI) Body weight Heart rate Oxygen saturation Oxygen saturation in Arterial blood by Pulse oximetry Systolic blood pressure Diastolic blood pressure Provider Name and Address Organization Details Last Updated DateTime 3 182.88 cm 40.1 kg/m2 268939. 34 g 93 /min 95 % 95 % 142 mm[Hg] 86 mm[Hg] Taya Bryson MA [facility] 3 16:26:09 Date Recorded Body height Body mass index (BMI) Body weight Heart rate Oxygen saturation Oxygen saturation in Arterial blood by Pulse oximetry Systolic blood pressure Diastolic blood pressure Provider Name and Address Organization Details Last Updated DateTime 4 182.88 cm 39.1 kg/m2 705263. 6 g 91 /min 95 % 95 % 142 mm[Hg] 80 mm[Hg] Taya Bryson MA [facility] 4 16:57:44 Date Recorded Body height Body mass index (BMI) Body weight Body temperature Respiratory rate Oxygen saturation Oxygen saturation in Arterial blood by Pulse oximetry Heart rate Systolic blood pressure Diastolic blood pressure Provider Name and Address Organization Details Last Updated DateTime 4 182.88 cm 39.2 kg/m2 119418. 19 g 98 [degF] 18 /min 96 % 96 % 88 /min 124 mm[Hg] 78 mm[Hg] Eufemia Cali LPN [facility] 4 11:57:42 Social History Question Answer Notes LastModified by Organizat ion Details LastModified Time Tobacco Smoking Status Never Smoker ROSALINDA Cope, [facility] 12/18/2016 15:01:06 Do You Have An Advance [...] Or The Highest Degree You Have Received? 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 No Information not available 11/03/2020 Do You Have A Medical Power Of Control Center Operator? No Information not available 07/26/2023 What [...] Anxious, Or Unable To Sleep At Night)? [id number] Information not available 04/11/2023 Do You Use [...] Muscle, Joint, or Bone Problems Y High Blood Pressure Y High Cholesterol Y Heart Attack (CT) Y Kidney or Bladder Problems Y Asthma Y Immunizations Vaccine Type Date Status Note Provider Nam e and Address Organization Details Recorded Time COVID-19, mRNA, LNP-S, PF, 30 mcg/0.3 mL dose completed Not Available [facility] 07/02/2023 18:42:20 SARS-COV-2 (COVID-19) vaccine, UNSPECIFIED 1 completed Not Available [facility] 07/02/2023 18:42:20 Influenza, split virus, quadrivalent, preservative 9 completed Not Available [facility] 06/14/2019 02:38:45 Influenza, split virus, quadrivalent, preservative 0 completed Vj Atkins LPN null, [place] [facility] 07/03/2019 11:52:46 COVID-19, mRNA, LNP-S, PF, 30 mcg/0.3 mL dose, deep-sucrose 2 completed Holly Peter [place] null, [place] [facility] 01/16/2022 15:46:41 Influenza, split virus, quadrivalent, PF 3 completed Vangie Tello MD Attn: Accounting[address] [place], [address], [place] [facility] 04/11/2023 16:53:09 tetanus toxoid, unspecified formulation 7 completed Not Available [facility] 07/02/2023 18:42:20 Past Encounters Encounter ID Performer Location Encounter Start Date Encounter Closed Date Diagnosis/Indication Diagnosis SNOMED-CT Code Diagnosis ICD10 Code Diagnosis Note [id number] Vangie Tello MD [facility] (Adult Med) [address] [place] [phone] 12/18/2016 14:44:41 12/18/2016 16:45:09 Type 2 diabetes mellitus 19040547 E11.40 He can not tolerate the metformin which cause his stomach to be uncomforta ble, diarrhea and cramping. Diabetic p eripheral neuropathy 553894699 E11.40 Body mass index 40+ - severely obese 515978262 Z68.42 Diabetic diet, exercise and lose weight.kannan ling to try wellbutrin and naltrexone to lose weight. Chronic ob structive pulmonary disease 09785396 J44.9 History of partial lung collapsed, needs inhaler to breathe. Umbilical hernia 7130344 07 K42.9 Weight loss, will refer to surgeon in the future if his weight goes down. Screening for malignant neoplasm of colon 274272282 Z12.11 He refuses. Screening for malignant neoplasm of prostate 160304560 Z12.5 Coronary atherosclerosis 644135332 I25.83 Under the care of his cardiologi st [id number] Vangie Tello MD [facility] ([facility]) [address] [place] [address] 09/26/2017 12:08:48 09/26/2017 14:02:45 Diabetes mellitus 90472724 E11.40 Metformin messed his GI , Diarrhea. Chronic co ngestive heart failure 78227940 I50.9 Under the care of his cardiologi . Diabetic p eripheral neuropathy 494683566 E11.40 Exposure t o viral hepatitis 109319296 Z20.5 [id number] Michelle Goodman MD [facility] [address] [place] [id number] 06/17/2018 09:49:13 06/18/2018 15:36:46 Pulmonary hypertension 90881902 I27.20 Multifacto rial Dyspnea on exertion 6084 5006 R06.09 Multifacto rial Obstructiv e sleep apnea syndrome 69010845 G47.33 Patient is not on treatment Tolerant non-smoker 8773 9003 Z87.891 Patient has second hand smoking Edema of l ower extremity 440916953 R60.0 Multifacto rial Hypoxemia 520620642 R09. 02 Patient is using O2 at home [id number] Michelle Goodman MD [facility] [address] [place] [phone] 07/18/2018 11:25:15 07/18/2018 15:15:05 Obstructive sleep apnea syndrome 25666473 G47.33 Patient is not on treatment. His sleep study is not available to me. Dyspnea on exertion 6084 5006 R06.09 Multifacto rial Restrictiv e lung disease 67132077 J98.4 FEV1 36%, FVC 32%, FEV1/FVC 87%, BD-, TLC 43%, DLCO 47%, will add Combivent respimat to his regimen. I will get CXR on the patient. Tolerant non-smoker 8773 9003 Z87.891 Patient has second hand smoking Edema of l ower extremity 387924945 R60.0 Multifacto rial Hypoxemia 082112876 R09. 02 Patient has 6MWT showed he needs O2 at 2L/M. Will order portable concentrat or. Patient is using O2 at home. I will check D dimer. History of exposure to second hand smoke 398252594 Z77.22 Patient has second hand smoking. Moderate p ersistent asthma 335477511 J45.40 He uses Ventolin but having significan t SOB. [id number] MD [facility] (Adult Med) [address] [place] [phone] 07/22/2018 12:36:17 07/23/2018 10:17:25 Diabetes mellitus 33062862 E11.40 Metformin messed his GI , Diarrhea. Type 2 janusz betes mellitus 70480622 E11.40 He can not tolerate the metformin which cause his stomach to be uncomforta ble, diarrhea and cramping. Secondary peripheral neuropathy 300823 G63 Can not walk since being D/C from ICU for respirator y failure. Asthma 744828785 J45.90 9 Under the care of his verification specialist . Chronic co ngestive heart failure 08794452 I50.9 Under the care of his cardiologi st. Chronic at rial fibrillation 967419438 I48.2 Under the care of his cardiologi st. Restrictiv e lung disease 08802010 J98.4 Dyslipidem ia due to type 2 diabetes mellitus 5495506234 02 E78.5 Hernia of anterior abdominal wall 548740823 K43.9 Discussed with patient, agreed for the CAT scan. Has claustroph obia, will give one ativan prior to CAT scan. [id number] MD Celeste Michaud (Adult Med) [address] [place] [address] 10/02/2018 15:51:24 10/03/2018 15:11:25 Type 2 diabetes mellitus 08179522 E11.40 He can not tolerate the metformin which cause his stomach to be uncomforta ble, diarrhea and cramping. Diabetic p eripheral neuropathy 222243514 E11.40 Discussed with patient, wanting up grade dose gabapentin . Chronic ob structive pulmonary disease 82319052 J44.9 History of partial lung collapsed, needs inhaler to breathe. Second hand smoker in the past. Tinea corporis 67700584 B35.4 [id number] Michelle Goodman MD [facility] [address] [place] [address] 10/24/2018 11:35:36 10/25/2018 14:37:28 Obstructive sleep apnea syndrome 64835616 G47.33 Patient is not on treatment. 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 02 Patient has 6MWT showed he needs O2 at 2L/M. Will order portable concentrat or. Patient is using O2 at home. I will check D dimer., homocystin e Moderate p ersistent asthma 208015899 J45.40 He uses Ventolin HFA but having significan t SOB. History of exposure to second hand smoke 974651880 Z77.22 Patient has second hand smoking. Diabetic p eripheral neuropathy 845973958 E11.40 On Gabapentin [id number] Vangie Tello MD [facility] (Adult Med) [address] [place] [address] 11/06/2018 15:22:10 11/06/2018 16:58:03 Type 2 diabetes mellitus 48712041 E11.40 He can not tolerate the metformin which cause his stomach to be uncomforta ble, diarrhea and cramping. Diabetic p eripheral neuropathy 256498051 E11.40 Discussed with patient, wanting up grade dose gabapentin . Chronic back pain 223744 002 M54.16 Stable. On gabapentin . Hernia of anterior abdominal wall 061832435 K43.9 Discussed with patient, agreed for the CAT scan. Has claustroph obia, will give one ativan prior to CAT scan. Chronic ob structive pulmonary disease 13236377 J44.9 History of partial lung collapsed, needs inhaler to breathe. Second hand smoker in the past. Wanting Alph-1 antitrypsi n screening. Diabetes mellitus 369173 09 E11.40 Metformin messed his GI , Diarrhea. Dyslipidem ia due to type 2 diabetes mellitus 5313585197 02 E78.5 Disorder of skin 6253751 [address], refill the cream. [id number] SUMEET MCKEON MD [facility] [address] [place] [address] 11/22/2018 11:15:02 11/25/2018 11:43:00 Hernia of anterior abdominal wall 294880702 K43.9 58M morbidly obese with anterior abdominal wall hernia. The optimal surgery wound include bariatrics and hernia repair. The patient has multiple comorbidit ies including COPD, on home oxygen, CHF and DM. I will refer him to a tertiary facility that can manage this complicate d patient. Morbid obesity 003398903 E66.01 [id number] Vangie Tello MD [facility] (Adult Med) [address] [place] [address] 12/04/2018 11:42:11 12/04/2018 12:36:51 Nephropathy screening 303116273 Z13.89 Discussed with patient that his urine stik test is clean, but will send for culture as back up. Acute low back pain 2788 05934 M54.5 Discussed with patient, will try diclofenac ointment and PRN for ibuprofen. [id number] [facility] [address] [place] [address] 03/06/2019 10:38:24 03/06/2019 16:02:09 Obstructive sleep apnea syndrome 34317616 G47.33 Patient is not on treatment. AHI 24/hour, patient required BIPAp 18/8 with O2 4L/m into nasal mask. I will order Hypoxemia 229031620 R09. 02 Patient has 6MWT showed he needs O2 at 2L/M. Will order portable concentrat or. Patient is using O2 at home. 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 Dizziness 174072551 R42 I will check DDimer and CTA of chest [id number] MD Celeste Michaud (Adult Med) [address] [place] [address] 03/10/2019 16:51:00 03/10/2019 18:16:54 Dyspnea on exertion 06029771 R06.09 hypoxemia. oximetry is only 75%, he refuses to go to ER. 2018. Pulmonary CAT failed to show large vessel embolism. On aspirin. Generalize d abdominal pain 297870032 R10.84 Worse pain of abdomen, previous CAT of abdomen in october 2018 reported trans colon intrarpped but no bowel obstructio n. He refuses to go to ER.. [id number] Vangie Tello MD [facility] (Adult Med) [address] [place] [address] 04/10/2019 15:28:55 04/11/2019 12:28:48 Chronic low back pain 063667776 M54.5 He insists to have nephrology referral; Chronic di sease of skin 288094999 L98.9 He insists to see a dermatolog ist. Administra tion of influenza vaccine 41283240 Z23 He tolerated short well. [id number] [facility] [address] [place] [address] 05/06/2019 16:29:56 05/07/2019 10:17:38 Acute respiratory infections 977804588 J22 [id number] Vangie Tello MD [facility] (Adult Med) [address] [place] [address] 06/25/2019 15:47:35 06/25/2019 17:14:35 Chronic low back pain 741177192 M54.5 He insists to have nephrology referral; but spinal vertebrae disorder, will proced CAT of lumbar spine. Hearing disorder 1600273 05 H91.90 Pt prefers to go to [facility], Cramping pain 779626926 R52 Discussed with patient. Diabetic p eripheral neuropathy 148087154 E11.40 Discussed with patient, wanting up grade dose gabapentin . Administra tion of influenza vaccine 86779592 Z23 He tolerated short well. [id number] Vangie Tello MD [facility] (Adult Med) [address] [place] [address] 07/16/2019 16:43:15 07/16/2019 17:46:11 Cellulitis 372319866 L03.90 Swelling gum. [id number] Karli Paniagua MD [facility] (Adult Med) [address] [place] [address] 08/26/2019 11:47:39 08/26/2019 17:12:55 Upper respiratory infection 91216203 J06.9 [id number] Michelle Goodman MD [facility] [address] [place] [address] 08/28/2019 09:17:52 09/15/2019 13:49:10 Obstructive sleep apnea syndrome 63199426 G47.33 Patient is on treatment. AHI 24/hour, patient required BIPAp 18/8 with O2 4L/m into nasal mask. I will adjust his pressure to 20/10 with 4L/M of O2 Hypoxemia 751057990 R09. 02 Patient has 6MWT showed he needs O2 at 2L/M. Will order portable concentrat or. Patient is using O2 at home. 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 Dizziness 567452156 R42 I will check DDimer and CTA of chest [id number] [facility] [address] [place] [address] 10/06/2019 13:55:45 10/07/2019 14:16:55 Chronic congestive heart failure 75277650 I50.9 Under the care of his cardiologi st. Diabetes mellitus 165452 09 E11.40 Metformin, regular formula, messed his GI , Diarrhea. Diabetic p eripheral neuropathy 370839399 E11.40 Discussed with patient, wanting up grade dose gabapentin . Dyslipidem ia due to type 2 diabetes mellitus 2879989351 02 E78.5 On low saturated fat diet, Moderate p ersistent asthma 448380780 J45.40 Has been stabilized with medication s. Tinea corporis 56848185 B35.4 Well maintained with powder. Degenerati ve joint disease involving multiple joints 291226022 M15.9 Wanting to refill the medication s. [id number] MD Celeste Michaud (Adult Med) [address] [place] [phone] 10/13/2019 09:37:54 10/14/2019 13:40:05 Hypokalemia 45627435 E87.6 Discussed with patient, will have blood potassium tested and refills of his potassium today. [id number] MD Celeste Michaud (Adult Med) [address] [place] [address] 10/06/2020 12:32:53 10/07/2020 15:31:55 Chronic congestive heart failure 39150346 I50.9 Under the care of his cardiologi st. Diabetes mellitus 203910 E11.40 Metformin, regular formula, messed his GI , Diarrhea. Chronic ob structive pulmonary disease 46678813 J44.9 History of partial lung collapsed, needs inhaler to breathe. Second hand smoker in the past. Wanting Alph-1 antitryp sin screening. [id number] Vangie Tello MD [facility] (Adult Med) [address] [place] [phone] 10/11/2020 09:44:00 10/12/2020 10:42:19 Chronic congestive heart failure 64571710 I50.9 Under the care of his cardiologi st. Diabetes mellitus 942718 E11.40 Metformin, regular formula, messed his GI , Diarrhea. Chronic ob structive pulmonary disease 84920921 J44.9 History of partial lung collapsed, needs inhaler to breathe. Second hand smoker in the past. Wanting Alph-1 antitryp sin screening. Diabetic p eripheral neuropathy 701090674 E11.40 Discussed with patient, wanting up grade dose gabapentin . Dyslipidem ia due to type 2 diabetes mellitus 9500697701 02 E78.5 On low saturated fat diet, [id number] Vangie Tello MD [facility] (Adult Med) [address] [place] [address] 11/03/2020 12:18:43 11/04/2020 11:30:52 Chronic kidney disease stage 2 318991025 N18.2 Will order U/S of kidney and CMP to [facility] as he wishes before referring to nephrologi . Chronic co ngestive heart failure 39314088 I50.9 Under the care of his cardiologi st. Diabetes mellitus 254891 E11.40 Metformin, regular formula, messed his GI , Diarrhea. Refilled glimepirid e 4 mg 2 pills bid, ordered yesterday. Diabetic p eripheral neuropathy 342848456 E11.40 Discussed with patient, wanting up grade dose gabapentin . [id number] [facility] [address] [address] 11/04/2020 11:44:29 11/04/2020 13:54:33 Moderate persistent asthma 032395617 J45.40 He uses Ventolin HFA but having significan t SOB., I will continue incruse ellipta and add Symbicort 160/4.5, I will recheck PFTs Restrictiv e lung disease 74571332 J98.4 FEV1 36%, FVC 32%, FEV1/FVC 87%, [...] since there is a narrow neck. Hypoxemia 517465500 R09. 02 Patient has 6MWT showed he needs O2 at 2L/M. Will order portable concentrat or. Patient is using O2 at home. I will check D dimer., homocystin e, I will check 6MWT Obstructiv e sleep apnea syndrome 96552494 G47.33 Patient is on treatment. AHI 24/hour, patient required BIPAp 18/8 with O2 4L/m into nasal mask. I will adjust his pressure to 20/10 with 4L/M of O2. He's feling the pressure is not enough, I will increase to 22/11 and geta download Morbid obesity 731971748 E66.01 Advised about diet and exercise for weight reduction Tolerant non-smoker 8773 9003 Z87.891 Patient has second hand smoking Dyspnea on exertion 6084 5006 R06.09 Multifacto rial Diabetic p eripheral neuropathy 800986962 E11.40 On Gabapentin Periodic l imb movement disorder 829612650 G47.61 On gabapentin - will increase dose to 400mg X3 Dizziness 775417027 R42 DDimer was negative and CTA negative Non-smoker 's second hand smoke syndrome 492210429 J98.4 [id number] Michelle Goodman MD [facility] [address] [place] [address] 11/11/2020 09:41:14 11/12/2020 11:24:45 Chest wall pain 115877208 R07.89 Etiology is unclear, I will check CTA Moderate p ersistent asthma 491316056 J45.40 He uses Ventolin HFA but having significan t SOB., I will continue incruse ellipta and add Symbicort 160/4.5, I will recheck PFTs Tolerant non-smoker 8773 9003 Z87.891 Patient has second hand smoking Obstructiv e sleep apnea syndrome 86971783 G47.33 Patient is on treatment. AHI 24/hour, patient required BIPAp 18/8 with O2 4L/m into nasal mask. I will adjust his pressure to 20/10 with 4L/M of O2. He's feling the pressure is not enough, I will increase to 22/11 and get a download and give the patient supplies Restrictiv e lung disease 88609636 J98.4 FEV1 36%, FVC 32%, FEV1/FVC 87%, [...] there is a narrow neck. Morbid obesity 203368718 E66.01 Advised about diet and exercise for weight reduction Hypoxemia 051660110 R09. 02 Patient has 6MWT showed he needs O2 at 2L/M. Will order portable concentrat or. Patient is using O2 at home. I will check D dimer., homocystin e, I will check 6MWT Dyspnea on exertion 6084 5006 R06.09 Multifacto rial Diabetic p eripheral neuropathy 353922752 E11.40 On Gabapentin Periodic l imb movement disorder 651708769 G47.61 On gabapentin - will increase dose to 400mg X3 Dizziness 298000933 R42 DDimer was negative and CTA negative [id number] MD Celeste Michaud (Adult Med) [address] [place] [address] 06/03/2021 15:42:21 06/06/2021 13:11:47 Acute laryngitis 9878453 J04.0 Likes z pack. he said. Erectile dysfunction 860 009139 F52.21 Wants to try viagra. Advised him to consult his cardiologi st as well. He agreed. Pityriasis versicolor 56 268739 B36.0 Will try topical cream and dermatolog y referral. [id number] MD Celeste Michaud (Adult Med) [address] [place] [address] 07/07/2021 11:40:36 07/25/2021 12:36:26 Chronic congestive heart failure 58557079 I50.9 Under the care of his cardiologi st. Diabetes mellitus 420112 09 E11.40 Metformin, regular formula, messed his GI , Diarrhea. Refilled glimepirid e 4 mg 2 pills bid, ordered yesterday. Dyslipidem ia due to type 2 diabetes mellitus 1844130660 02 E78.5 On low saturated fat diet, Erectile dysfunction 860 343238 F52.21 Wants to try viagra. Advised him to consult his cardiologi st as well. He agreed., he siad his cardiologi st agreed, now he wants up dose. Pityriasis versicolor 56 330557 B36.0 Will try topical cream and dermatolog y referral. ! % terbinafin e not working he said , he used to try kanolotion Diabetic p eripheral neuropathy 721812323 E11.40 Discussed with patient, wanting up grade dose gabapentin . Type 2 janusz betes mellitus 66556585 E11.40 He can not tolerate the metformin which cause his stomach to be uncomforta ble, diarrhea and cramping. Chronic ob structive pulmonary disease 21540821 J44.9 History of partial lung collapsed, needs inhaler to breathe. Second hand smoker in the past. Wanting Alph-1 antitryp sin screening. Degenerati ve joint disease involving multiple joints 872167744 M15.9 Wanting to refill the medication s. Acid reflux 107331555 K2 1.9 Stable. Screening for malignant neoplasm of colon 446826787 Z12.11 He wants stool test. [id number] Vangie Tello MD [facility] (Adult Med) [address] [place] [address] 08/05/2021 12:24:37 08/08/2021 09:17:47 Secondary erectile dysfunction 067797771 N52.39 He wants change viagra from 10/month 100 mg to 50 mg with 20 pills/georges h. Chronic co ngestive heart failure 74761797 I50.9 Under the care of his cardiologi st. Diabetes mellitus 417431 09 E11.40 Metformin, regular formula, messed his GI , Diarrhea. Refilled glimepirid e 4 mg 2 pills bid, ordered yesterday. Acid reflux 862331656 K2 1.9 Stable. Chronic ob structive pulmonary disease 45683110 J44.9 History of partial lung collapsed, needs inhaler to breathe. Second hand smoker in the past. Wanting Alph-1 antitryp sin screening. He agreed to D/C symbicort which has steroid . 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 Diabetic p eripheral neuropathy 381393408 E11.40 Discussed with patient, wanting up grade dose gabapentin . Type 2 janusz betes mellitus 57871183 E11.40 He can not tolerate the metformin which cause his stomach to be uncomforta ble, diarrhea and cramping. Dyslipidem ia due to type 2 diabetes mellitus 3107944350 02 E78.5 On low saturated fat diet, Degenerati ve joint disease involving multiple joints 643331891 M15.9 Wanting to refill the medication s. [id number] Vangie Tello MD [facility] (Adult Med) [address] [place] [address] 08/31/2021 12:02:59 09/01/2021 12:34:40 Chronic congestive heart failure 38081366 I50.9 Under the care of his cardiologi st., On [id number] e, needs potassium supplement . Tinea corporis 25731874 B35.4 Well maintained with powder. Erectile dysfunction 860 361926 F52.21 Wants to try viagra. Advised him to consult his cardiologi st as well. He agreed., he siad his cardiologi st agreed, now he wants up dose. Secondary erectile dysfunction 960218838 N52.39 He wants change viagra from 10/month 100 mg to 50 mg with 20 pills/georges h. Diabetes mellitus 569954 09 E11.40 Metformin, regular formula, messed his GI , Diarrhea. Refilled glimepirid e 4 mg 2 pills bid, ordered yesterday. Acid reflux 808260802 K2 1.9 Stable. Chronic ob structive pulmonary disease 52750987 J44.9 History of partial lung collapsed, needs inhaler to breathe. Second hand smoker in the past. Wanting Alph-1 antitryp sin screening. He agreed to D/C symbicort which has steroid . 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 Diabetic p eripheral neuropathy 840623504 E11.40 Discussed with patient, wanting up grade dose gabapentin . Type 2 janusz betes mellitus 61273719 E11.40 He can not tolerate the metformin which cause his stomach to be uncomforta ble, diarrhea and cramping. Dyslipidem ia due to type 2 diabetes mellitus 6268212529 02 E78.5 On low saturated fat diet, Degenerati ve joint disease involving multiple joints 371226039 M15.9 Wanting to refill the medication s. Pityriasis versicolor 56 312232 B36.0 Will try topical cream and dermatolog y referral. ! % terbinafin e not working he said , he used to try kanolotion , Still waiting the appointmen t of dermatolog y at [facility], he wants to find sooner and close dermatolog ist instead, advised to check with his insurance the lists of dermatolog ist in the [facility] work, then will try to refer, he agreed. 08-31-2021 . [id number] Vangie Tello MD [facility] (Adult Med) [facility] [place] [address] 10/07/2021 12:33:21 10/11/2021 07:41:46 Erectile dysfunction 135303754 F52.21 Wants to try viagra. Advised him to consult his cardiologi st as well. He agreed., he siad his cardiologi st agreed, now he wants up dose. Infection of skin and/or subcutaneous tissue 74386792 L08.9 He wants cream and bactrim for his skin over count of bacteria since his young . Chronic co ngestive heart failure 23967208 I50.9 Under the care of his cardiologi st., On esgihm3uyo e, needs potassium supplement . Diabetes mellitus 358083 09 E11.40 Metformin, regular formula, messed his GI , Diarrhea. Refilled glimepirid e 4 mg 2 pills bid, ordered yesterday. Chronic ob structive pulmonary disease 43243008 J44.9 History of partial lung collapsed, needs inhaler to breathe. Second hand smoker in the past. Wanting Alph-1 antitryp sin screening. He agreed to D/C symbicort which has steroid . 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 Degenerati ve joint disease involving multiple joints 496989696 M15.9 Wanting to refill the medication s. Acid reflux 002993610 K2 1.9 Stable. Diabetic p eripheral neuropathy 207328724 E11.40 Discussed with patient, wanting up grade dose gabapentin . Dyslipidem ia due to type 2 diabetes mellitus 8133684821 02 E78.5 On low saturated fat diet, [id number] ROSALINDA Layton (Peds) [address] [place] [address] 01/16/2022 15:33:00 01/17/2022 12:11:00 Administration of SARS-CoV-2 mRNA vaccine 1746464298 Z23 [id number] MD Celeste Michaud (Adult Med) [address] [place] [phone] 01/16/2022 16:03:23 01/19/2022 10:53:06 Screening for malignant neoplasm of prostate 194319739 Z12.5 He agreed. Screening for malignant neoplasm of colon 607322179 Z12.11 He wants stool test. He has not turned in the test yet he said, Type 2 janusz betes mellitus 99386121 E11.40 He can not tolerate the metformin which cause his stomach to be uncomforta ble, diarrhea and cramping. HIV screening 853000603 Z11.4 He agreed to be tested. Cramping pain 803048365 R52 Discussed with patient. On diuretic , might have low magnesium , will check. Exposure t o Hepatitis B virus 266869594 Z20.5 Will check the hepatitis B. Secondary erectile dysfunction 924330433 N52.39 He wants change viagra from 10/month 100 mg to 50 mg with 20 pills/georges h. Obesity 567010362 E66.9 Advised to watch his diabetic diet, exercise and lose some weight, 12-27-2021. [id number] MD Celeste Michaud (Adult Med) [address] [place] [address] 06/21/2022 15:38:22 06/22/2022 15:47:33 Thoracic back pain 958271899 M54.6 He wants chiropract or referral. He will see his cardiologi st on the end of this month. Wants some tylenol with codeine or hydrocodon . Eruption 798489294 R21 Skin keeps break out, cream not helping. wants dermatolog y referral. Diabetes mellitus 796897 09 E11.40 Metformin, regular formula, messed his GI , Diarrhea. Refilled glimepirid e 4 mg 2 pills bid, ordered yesterday. Screening for malignant neoplasm of colon 543461843 Z12.11 He wants stool test. He has not turned in the test yet he said, it , will reorder. Erectile dysfunction 860 077573 F52.21 Wants to try viagra. Advised him to consult his cardiologi st as well. He agreed., he siad his cardiologi st agreed, now he wants up dose. Dyslipidem ia due to type 2 diabetes mellitus 4660939560 02 E78.5 On low saturated fat diet, Congestive heart failure 29121565 I50.9 Under the care of his cardiologi st. [id number] Vangie Tello MD [facility] (Adult Med) [address] [place] [address] 02/07/2023 17:11:12 02/09/2023 15:31:07 Type 2 diabetes mellitus 24500595 E11.40 He can not tolerate the metformin which cause his stomach to be uncomforta ble, diarrhea and cramping. Went thru med lists. needs potassium and magnesium, and up grate dose of pioglitazo ne . Chronic co ngestive heart failure 96896526 I50.9 Under the care of his cardiologi st., On hsuuqg6bnl e, needs potassium supplement . Diabetic p eripheral neuropathy 161960933 E11.40 Discussed with patient, wanting up grade dose gabapentin . Eruption 013488983 R21 Skin keeps break out, cream not helping. wants dermatolog y referral. Diabetes mellitus 125430 E11.40 Metformin, regular formula, messed his GI , Diarrhea. Refilled glimepirid e 4 mg 2 pills bid, ordered yesterday. Wants increase dose of pioglitazo ne. Screening for malignant neoplasm of colon 507063104 Z12.11 He wants stool test. He has not turned in the test yet he said, it , will reorder. He had it sitting his home for months. Re instructed to proceed the test. he said that he will do it. today [id number]. Erectile dysfunction 860 366879 F52.21 Wants to try viagra. Advised him to consult his cardiologi st as well. He agreed., he siad his cardiologi st agreed, now he wants up dose. Dyslipidem ia due to type 2 diabetes mellitus 6288037106 02 E78.5 On low saturated fat diet, Congestive heart failure 92934680 I50.9 Under the care of his cardiologi st. Acid reflux [id number] K2 1.9 Stable. Chronic ob structive pulmonary disease 95376698 J44.9 History of partial lung collapsed, needs inhaler to breathe. Second hand smoker in the past. Wanting Alph-1 antitryp sin screening. He agreed to D/C symbicort which has steroid . 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 Cramping pain 640098596 R52 Discussed with patient. On diuretic , might have low magnesium , will check. Infection of skin and/or subcutaneous tissue 47252752 L08.9 He wants cream and bactrim for his skin over count of bacteria since his young . Allergic r eaction to bee sting [id number] T63.444A Will refill epinephrin e injection. Chronic th oracic back pain [id number] 60855 M54.6 Med refills. Obesity 293724715 E66.9 Advised to watch his diabetic diet, exercise and lose some weight, 12-27-2021. BMI is 38.7 as 02-07-23. [id number] MD Celeste Michaud (Adult Med) [address] [place] [address] 04/11/2023 16:11:30 04/12/2023 15:46:47 Administration of influenza vaccine 14990241 Z23 He tolerated short well. Acute resp iratory infections 546859897 J22 congested sinus and throat. wants z pk Impacted c erumen in right ear 0829670008 845874 H61.21 Wants [facility] to clean it. Hernia of anterior abdominal wall 200606438 K43.9 Discussed with patient, agreed for the CAT scan. Has claustroph obia, will give one ativan prior to CAT scan.He wants [facility] to take care of . Diabetes mellitus 958120 E11.40 Metformin, regular formula, messed his GI , Diarrhea. Refilled glimepirid e 4 mg 2 pills bid, ordered yesterday. Wants increase dose of pioglitazo ne. Chronic co ngestive heart failure 32963124 I50.9 Under the care of his cardiologi st., On dnrela1vhy e, needs potassium supplement . Dyslipidem ia due to type 2 diabetes mellitus 5550709487 02 E78.5 On low saturated fat diet, Erectile dysfunction 860 471097 F52.21 Wants to try viagra. Advised him to consult his cardiologi st as well. He agreed., he siad his cardiologi st agreed, now he wants up dose. Cramping pain 931566090 R52 Discussed with patient. On diuretic , might have low magnesium , will check. Chronic th oracic back pain 6136385524 06585 M54.6 Med refills. Diabetic p eripheral neuropathy 252487976 E11.40 Discussed with patient, wanting up grade dose gabapentin . Chronic ob structive pulmonary disease 49608400 J44.9 History of partial lung collapsed, needs inhaler to breathe. Second hand smoker in the past. Wanting Alph-1 antitryp sin screening. He agreed to D/C symbicort which has steroid . 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 [id number] MD Celeste Michaud (Adult Med) [address] [place] [address] 07/25/2023 16:36:06 07/30/2023 11:15:49 Chronic atrial fibrillation 567724625 I48.20 Will go to [facility] for new cardiologi st. Diabetes mellitus 698725 E11.40 Metformin, regular formula, messed his GI , Diarrhea. Refilled glimepirid e 4 mg 2 pills bid, ordered yesterday. Wants increase dose of pioglitazo ne. Chronic co ngestive heart failure 35163382 I50.9 Under the care of his cardiologi st., On oovsez0ngp e, needs potassium supplement . Chronic ob structive pulmonary disease 60532823 J44.9 History of partial lung collapsed, needs inhaler to breathe. Second hand smoker in the past. Wanting Alph-1 antitryp sin screening. He agreed to D/C symbicort which has steroid . 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 Acid reflux 242703385 K2 1.9 Stable. Diabetic p eripheral neuropathy 291858824 E11.40 Discussed with patient, wanting up grade dose gabapentin . Cramping pain 734545767 R52 Discussed with patient. On diuretic , might have low magnesium , will check. Dyslipidem ia due to type 2 diabetes mellitus 8681108727 02 E78.5 On low saturated fat diet, Erectile dysfunction 860 973420 F52.21 Wants to try viagra. Advised him to consult his cardiologi st as well. He agreed., he siad his cardiologi st agreed, now he wants up dose. Hernia of anterior abdominal wall 999274891 K43.9 Discussed with patient, agreed for the CAT scan. Has claustroph obia, will give one ativan prior to CAT scan.He wants [facility] to take care of . [id number] Michelle Goodman MD [facility] [address] [place] [address] 07/26/2023 11:19:15 07/26/2023 14:34:35 Moderate persistent asthma 875377588 J45.40 He uses Ventolin HFA but having significan t SOB., I will continue incruse ellipta and add Symbicort 160/4.5, I will recheck PFTs, he has been having trou ble with shortne s s o f b r e a t h . Tolerant non-smoker 8773 9006 Z87.891 Patient has second hand smoking Obstructiv e sleep apnea syndrome 51164766 G47.33 Patient is on treatment. AHI 24/hour, patient required BIPAp 18/8 with O2 4L/m into nasal mask. I will adjust his pressure to 20/10 with 4L/M of O2. He's feeling the pressure is not enough, I will get download of his CPAP. Restrictiv e lung disease 33919036 J98.4 FEV1 36%, FVC 32%, FEV1/FVC 87%, [...] there is a narrow neck. Morbid obesity 466713295 E66.01 Advised about diet and exercise for weight reduction Hypoxemia 620748251 R09. 02 Patient has 6MWT showed he needs O2 at 2L/M. Will order portable concentrat or. Patient is using O2 at home. 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 On gabapentin - will increase dose to 400mg X3 Dizziness 477228081 R42 DDimer was negative and CTA negative Health Concerns Section Related Observation LastModified by Organization Detai ls LastModified Time None Recorded Concern Status LastModified by Organization Details LastModified Time None Recorded Advance Directives Directive N: Payers Encounter Date Sequence Insurance Name Policy Number Policy Leon Covered Member ID Leon Member ID Guarantor Name 06/21/2022 1 [facility] ON OR AFTER 11/25/20 (MEDICAID REPLACEMENT - HMO) Mann Lemp [id number] Mann Lemp 02/07/2023 1 [facility] ON OR AFTER 11/25/20 (MEDICAID REPLACEMENT - HMO) Mann Lemp [id number] Mann Lemp 04/11/2023 1 [facility] ON OR AFTER 11/25/20 (MEDICAID REPLACEMENT - HMO) Mann Lemp [id number] Mann Lemp 07/25/2023 1 [facility] ON OR AFTER 11/25/20 (MEDICAID REPLACEMENT - HMO) Mann Lemp [id number] Mann Lemp 07/26/2023 1 [facility] ON OR AFTER 11/25/20 (MEDICAID REPLACEMENT - HMO) Mann Lemp [id number] Mann Lemp Notes Date Note Type Note Provider Name and Address Organization Details Recorded Time 06/21/2022 text/html Office visit,Allergic to glimepiride. History of type 2 DM, CHF, dyslipidemia skin eruption, upper back pain , and ED. Wants to refill med and referrals. Vangie Tello MD Attn: Accounting,[address] [place], [address], [facility] 06/21/2022 16:52:16 02/07/2023 text/html Office visit, allergic to glimepiride, check up and blood tests and med refills. Vangie Tello MD Attn: Accounting,[address] [place], [address], [facility] 02/07/2023 18:24:23 04/11/2023 text/html Office visit, allergic to glimepiride. Check up med refills. C/C1. respiratory track infection, 2. Right ear wax impacted. 3. Abdominal wall hernia getting bigger. No chest pain, some congestion of sinus, throat, want z PK. No fever, no other complaints, ROS as noted in HPI. Vangie Tello MD Attn: Accounting,[address] [place], [address], [facility] 04/11/2023 17:31:19 07/25/2023 text/html Office visit. allergic to glimepiride. history of type 2 DM, CHF, diabetic neuropathy, on oxygen , Check up and med refills. if any. No chest pain, no fever, no shortness of breath, regular appetite and Bowel habit. ROS as noted in HPI. Vangie Tello MD Attn: Accounting,[address] [facility], [place], [address], [facility] 07/25/2023 17:42:22 07/26/2023 text/html Patient is here for follow-up. He relates to me that his BiPAP machine is not giving him enough pressure. He has been having more shortness of breath. He has been having right shoulder pain and neck pain. He has not been in the office since October of 2020 Michelle Goodman MD [address] [place], [address], [facility] 07/26/2023 12:13:57
--- OUTSIDE RECORDS SUMMARY | 2024-09-01 01:11 | XMS_ITS | Referral Summary ---
Author Organization [place] [id number] [facility] Address [address] [place] [address] Care Team Providers Care Commercial Drafter Name Role Phone No, Physician Unavailable Vangie Valentine MD Primary Care Provider [phone] Allergies Active Allergy Reactions Criticality Noted Date [...] PELVIS W CONTRAST Routine 05/13/2018 12:00 AM SOCIAL SCIENCE INSTRUCTOR from Last 3 Months or Most Recently Relevant to Health Maintenance Results * CT Abdomen Pelvis W Contrast (05/13/2018 12:00 AM SOCIAL SCIENCE INSTRUCTOR) Anatomical Region Laterality Modality Body N/A Computed Tomogra phy 05/13/2018 Impressions 05/13/2018 2:50 AM SOCIAL SCIENCE INSTRUCTOR No acute findings in the abdomen or pelvis. THIS IS AN ELECTRONICALLY VERIFIED FINAL REPORT 05/13/2018 2:47 AM - Electronically signed by Mario Garcia M.D. RW T: Report ID: [id number] Reading Location: [place] [address] [EOD] Narrative 05/13/2018 2:50 AM SOCIAL SCIENCE INSTRUCTOR EXAM DESCRIPTION: CT Abd/Pelvis W IV Contrast [...] Mario Garcia M.D. RW T: Report ID: [id number] Reading Location: [id number] [EOD] Richardson Kilgore BUSINESS MACHINE OPERATOR IMG CT PROCEDURES Final R esult from Last 3 Months or Most Recently Relevant to Health Maintenance Insurance [address] [facility] [address] [place] [address] [facility] MEDICARE ADVANTAGE [facility] MEDICARE Address: [address] [address] [place] [address] Care Teams Commercial Drafter Relationship Specialty Start Date End Date Vangie Valentine MD [address] [place] [address] PCP - General Internal Medicine 06/11/19 No, Physician 05/18/18
--- OUTSIDE RECORDS SUMMARY | 2024-09-01 01:11 | XMS_ITS | Clinical Summary ---
Author Organization [facility] Address [address] [place] [address] Care Team Providers Care Crown Ceramist Name Role Phone Vangie Valentine MD Primary Care Provider [phone] Source Comments [facility],non-owned Affiliates and Associated Physician Practices is amultiple site organization consisting of ambulatory clinics and hospital sitesin [place], [place], [place] and [place]. This disclosure is being madepursuant to the Care Everywhere program and may not contain all information available regarding this patient. Last updated 18.[facility] Allergies Active Allergy Reactions Criticality Noted Date [...] Comments Blood Pressure 135/97 06/28/2023 8:35 AM OAKES MACHINE OPERATOR Pulse 90 06/28/2023 8:35 AM OAKES MACHINE OPERATOR Temperature 36.6 C (97.9 F) 06/28/2023 8:35 AM OAKES MACHINE OPERATOR Respiratory Rate - - Oxygen Saturation - - Inhaled Oxygen Concentration - - Weight 135.2 kg (298 lb) 06/28/2023 8:35 AM OAKES MACHINE OPERATOR Height 182.9 cm (6') 06/28/2023 8:35 AM OAKES MACHINE OPERATOR Body Mass Index 40.42 06/28/2023 8:35 AM OAKES MACHINE OPERATOR Plan of Treatment Health Maintenance Due [...] age to complete this topic Care Teams Crown Ceramist Relationship Specialty Start Date End Date Vangie Valentine MD [address] [place] [id number] PCP - General 08/18/21
[2024-09-01] MEDS: ACETAMINOPHEN 500 MG TABLET 1000 MG PO (08:08)
[2024-09-01] MEDS: LACTATED RINGERS 1,000 ML 30 ML IV CONT ×2 (08:10→14:30)
[2024-09-01 08:11] LABS: Glucose Point of Care 97 mg/dl (65-105)
[2024-09-01] MEDS: KETOROLAC 15 MG/ML VIAL (*BKC) IV PUSH (08:15)
[2024-09-01 08:27] LABS: Anion Gap 6 mmol/L (4-12); Blood Urea Nitrogen 21 mg/dL (9-20); Calcium 8.9 mg/dL (8.4-10.2); Carbon Dioxide 33 mmol/L (22-30); Chloride 103 mmol/L (98-107); Estimated CRCL calculation 141 ml/min; Estimated Glomerular Filt Rate > 60; Glucose 91 mg/dL (65-110); Sodium 142 mmol/L (137-145)
--- NOTE | 2024-09-01 09:33 | P.PNAN_ITS ---
Anes - Initial Pre Proc Eval Procedure: Operation Date: 09/01/24 09:00 Proposed Procedures p Robotic Assisted Laparoscopic Incarcerated Ventral Hernia Repair with Mesh Possible Open - Simone Corea MD Date/Time: 09/01/24 09:33 Surgeon: Simone Corea MD Pre Op Diagnosis: Incarcerated Ventral Hernia Patient Data Age: 64 Gender: M Height: 1.8 m Weight: 119 kg Last Vital Signs Temp 97.6 F 09/01/24 07:46 Pulse 74 09/01/24 07:46 Resp 20 09/01/24 07:46 BP 149/87 H 09/01/24 07:46 Pulse Ox 97 09/01/24 07:46 O2 Del Method Room Air 09/01/24 07:46 Allergies Allergy/AdvReac Type Severity Reaction Status Date / Time lidocaine Allergy Anaphylaxis Verified 09/01/24 07:40 amoxicillin AdvReac Diarrhea Verified 09/01/24 07:40 Opioids - Morphine Analogues AdvReac Nightmare/V Verified 09/01/24 07:40 IOLENT Home Medications ?Medication ?Instructions ?Recorded ?Confirmed ?Type gabapentin 800 mg tablet 800 mg PO BID 09/10/23 09/01/24 History sildenafil 100 mg tablet (Viagra) 100 mg PO DAILY PRN sexual 09/28/23 08/20/24 Rx activity #10 tabs albuterol sulfate 90 mcg/actuation 1 - 2 inh inhalation Q4-6H PRN 11/02/23 08/20/24 Rx aerosol inhaler shortness of breath or wheezing #8.5 grams Blood Glucose Test (blood sugar #50 ea 11/19/23 08/20/24 Rx diagnostic) blood-glucose meter (Accu-Chek #1 ea 11/19/23 08/20/24 Rx Guide Glucose Meter) ketoconazole 2 % shampoo 1 applic topical 3XW #120 mL 11/19/23 08/20/24 Rx lancets 28 gauge #100 ea 11/19/23 08/20/24 Rx rivaroxaban 20 mg tablet (Xarelto) 20 mg PO QPM #90 tabs 11/22/23 09/01/24 Rx potassium chloride 10 mEq 10 meq PO DAILY #90 caps 02/13/24 09/01/24 Rx capsule,extended release carvedilol 6.25 mg tablet 6.25 mg PO BID #180 tabs 03/21/24 09/01/24 Rx digoxin 250 mcg (0.25 mg) tablet 250 mcg PO DAILY #90 tabs 03/21/24 09/01/24 Rx dapagliflozin propanediol 5 mg 5 mg PO DAILY #90 tabs 04/09/24 08/20/24 Rx tablet (Farxiga) ibuprofen 800 mg tablet 800 mg PO ONCE PRN pain #90 tabs 05/12/24 08/20/24 Rx triamcinolone acetonide 0.1 % 1 applic topical BID #30 grams 05/12/24 09/01/24 Rx topical cream azelastine 137 mcg (0.1 %) nasal 137 mcg (0.137 mL) intranasal . 06/20/24 09/01/24 Rx spray q.h.s. chronic seasonal allergic rhinitis #30 mL budesonide-formoterol HFA 160 2 puff inhalation Q12H #10.2 grams 06/20/24 09/01/24 Rx mcg-4.5 mcg/actuation aerosol inhaler (Breyna) ipratropium 20 mcg-albuterol 100 1 puff inhalation QID #4 grams 06/20/24 09/01/24 Rx mcg/actuation mist for inhalation (Combivent Respimat) empagliflozin 10 mg tablet 10 mg PO DAILY 06/23/24 09/01/24 History (Jardiance) furosemide 40 mg tablet 40 mg PO PRN 06/23/24 09/01/24 History simvastatin 40 mg tablet 40 mg PO QPM 06/23/24 09/01/24 History Laboratory Tests 09/01/24 09/01/24 08:08 08:11 Sodium 142 mmol/L (137-145) Potassium 4.0 mmol/L (3.4-5.0) Chloride 103 mmol/L (98-107) Carbon Dioxide 33 H mmol/L (22-30) Anion Gap 6 mmol/L (4-12) BUN 21 H D mg/dL (9-20) Creatinine 0.57 L mg/dL (0.7-1.3) Estim Creat Clear Calc 141 ml/min Estimated GFR > 60 (59 - ) Glucose 91 mg/dL (65-110) POC Capillary Glucose 97 mg/dl (65-105) Calcium 8.9 mg/dL (8.4-10.2) Digoxin Pending Blood Type O Positive Antibody Screen Negative Patient hx anesthesia problems: none Family hx anesthesia problems: none Results Review: All pre-operative results and documents have been reviewed as part of the pre- operative evaluation. [facility] Past Medical History Medical History Kidney disease Hypertension Heart disease Heart attack Migraine Headache GERD (gastroesophageal reflux disease) Diabetes CHF (congestive heart failure) COPD (chronic obstructive pulmonary disease) Arthritis Anxiety Asthma Allergies History of diabetes mellitus History of gastroesophageal reflux (GERD) History of COPD History of atrial fibrillation Family History Family History Father Alcoholism Heart disease Hypertension Mother Heart disease Asthma Sibling Alcoholism Asthma Diabetes mellitus Hypertension Heart disease Cerebrovascular accident Thyroid disorder Grandparent Asthma Hypertension Heart disease Son Alcoholism Asthma Hypertension Social History Social History Smoking status: Never smoker Second hand tobacco smoke exposure: No Alcohol intake: never Substance use: never Substance use type: does not use Do You Feel Safe in your Home?: Yes Lack of Transportation: No Lack of Food: Never True Current Housing: Decline to Answer Concerned About Future Housing: Decline to Answer Difficulty Paying Gas/Electric Bills: No Difficulty Paying for Meds: No Currently Unemployed: No Education: High School Diploma/GED Difficulty w/ Childcare or Family Care: No Living arrangements: with family Occupation/Education: retired Sexual Orientation (if Verbalized by the Patient): Straight or Heterosexual Spiritual care concerns: No Agree to blood products: No Anes - Eval Final PreProcedure Day of Procedure 09/01/24 09:33 Patient weight: obese Heart: regular rate and rhythm Lungs: clear to auscultation Neurological: alert and oriented Last oral intake: >/= 8 hours ASA classification: III Emergent: no Anesthetic plan: proceed Anesthesia type and monitoring: general ETT and standard monitoring Other findings: states cannot lay flat; has SOB Results Review: All pre-operative results and documents have been reviewed as part of the pre- operative evaluation. Informed Consent: The patient's anesthetic plan and its attendant risks and benefits were di scussed with the patient/family/POA. Questions were solicited and answers provided to the satisfaction of the patient/family/POA.
--- NOTE | 2024-09-01 09:50 | WPDHPUPDATE1 ---
History and Physical Update Update Date/Time: 09/01/24 09:50 History and Physical has been reviewed, including an updated exam of the patient. There are NO changes in the patient's condition. Risks, benefits, and alternatives have been discussed and questions answered. Patient agrees to proceed with procedure.
[2024-09-01] MEDS: ceFAZolin 2 GM/D5W 50 ML 2 GM/50 ML BAG IVPB (10:07)
[2024-09-01 10:37] LABS: Digoxin 0.7 ng/mL (0.8-2.0)
[2024-09-01] MEDS: ONDANSETRON INJ 4 MG/2 ML VIAL IV PUSH (14:36)
[2024-09-01] MEDS: LABETALOL HCL INJ 100 MG/20 ML VIAL IV PUSH ×3 (14:49→15:22)
--- NOTE | 2024-09-01 15:00 | PM.OP ---
Procedure Note - Brief Procedure Note - Brief Date of procedure: 09/01/24 Incarcerated Ventral Hernia Post-op diagnosis: Same Procedure performed: Robotic assisted laparoscopic incarcerated ventral hernia repair with Ventralight ST mesh Surgeon: Simone Corea MD Implants: Bard Ventralight ST mesh [id number] placed intraperitoneal onlay position Estimated blood loss (mL): 100 Drains: No Packing: No Pathology: Yes (Hernia sac to pathology) Complications: No immediate complications Condition: Stable Disposition: PACU
[2024-09-01] MEDS: fentaNYL CITRATE INJ (*CRX) 100 MCG/2 ML VIAL 25 MCG IV PUSH ×3 (15:03→15:59)
[2024-09-01 15:17] LABS: Glucose Point of Care 124 mg/dl (65-105)
[2024-09-01] MEDS: hydrALAZINE HCL 20 MG/ML VIAL 5 MG IV PUSH (15:41)
--- NOTE | 2024-09-01 16:22 | ADMGEN ---
This patient, Mann Choudhury, was admitted to 3 [facility] Surg Room 311-01. Patient/family oriented to hospital policies and general routines including ID bracelet, bed and alarms, visiting hours, pain management, procedures, bathroom and other care routines, personal items, smoking policy, room service/diet, and visiting hours. Information on how to activate the Rapid Response Team has been discussed. Patient/Family are encouraged to report perceived risks to care and to ask questions if they do not understand what they are told or what they should do.
[2024-09-01] MEDS: HYDROmorphone HCL INJ (*CRX) 1 MG/ML SYR IV PUSH (16:51)
[2024-09-01] MEDS: GABAPENTIN 400 MG CAPSULE 800 MG PO (16:56)
[2024-09-01] MEDS: SODIUM CHLORIDE 0.9% IV 1,000 ML 100 ML IV CONT (17:01)
[2024-09-01] MEDS: ceFAZolin 1 GM/NS 50 ML 1 GM/50 ML BAG IVPB (17:06)
[2024-09-01] MEDS: HYDROcodone/acetaminophen (*CRX) 5-325 MG TABLET 1 TAB PO (20:23)
[2024-09-01] MEDS: oxyCODONE HCL (*CRX) 5 MG TAB IR PO (22:27)
[2024-09-02] MEDS: ceFAZolin 1 GM/NS 50 ML 1 GM/50 ML BAG IVPB ×2 (02:15→09:37)
[2024-09-02] MEDS: SODIUM CHLORIDE 0.9% IV 1,000 ML 100 ML IV CONT (02:58)
[2024-09-02 06:23] VITALS: BP 92/62; PULSE 88; RESP 18; TEMP 36.4; O2SAT 92
[2024-09-02] MEDS: PANTOPRAZOLE 40 MG TABLET PO (09:28)
[2024-09-02] MEDS: ENOXAPARIN 40 MG/0.4 ML SYRINGE SUB-Q (09:28)
[2024-09-02] MEDS: POTASSIUM CHLORIDE 10 MEQ ER TABLET PO (09:28)
[2024-09-02] MEDS: HYDROcodone/acetaminophen (*CRX) 5-325 MG TABLET 1 TAB PO (09:35)
--- NOTE | 2024-09-02 10:13 | WPDANESPN ---
Anes - Prog Note Post-Op Date/Time: 09/02/24 10:13 Cardiovascular status: normal Respiratory status: normal Airway patency: baseline Mental status: baseline Post-Op hydration status: normal Vital Signs: Last Vital Signs Temp 97.5 F L 09/02/24 06:23 Pulse 88 09/02/24 06:23 Resp 18 09/02/24 06:23 BP 92/62 L 09/02/24 06:23 Pulse Ox 92 09/02/24 06:23 O2 Del Method CPAP 09/01/24 23:08 O2 Flow Rate 4 09/01/24 16:00 Pain Score (VAS): 0/10 I/O: Intake & Output 09/01/24 09/02/24 09/02/24 23:59 07:59 15:59 Intake Total 170 1245 360 Output Total 150 Balance 170 1095 360 Laboratory Tests 09/01/24 08:11 09/01/24 09/01/24 08:11 15:15 POC Capillary Glucose 124 H Digoxin 0.7 L Post-procedural complaints: none Patient Feedback: Patient satisfied with anesthetic care.
[2024-09-02 11:33] VITALS: BP 106/73; PULSE 92; RESP 16; TEMP 36.7; O2SAT 90
[2024-09-02 12:00] VITALS: PULSE 102; O2SAT 96
[2024-09-02 13:31] VITALS: BP 104/74; PULSE 96; RESP 18; TEMP 36.3; O2SAT 98
--- NOTE | 2024-09-02 15:50 | P.DS_ITS ---
DS: Admitting Diagnosis Discharge Date 09/02/24 Admitting Diagnosis Incarcerated ventral hernia DS: Discharge Diagnosis Discharge Diagnosis (1) Incarcerated ventral hernia: Code(s): K43.6 - Other and unspecified ventral hernia with obstruction, without gangrene Status: Acute (2) COPD (chronic obstructive pulmonary disease): Qualifiers: COPD type: unspecified COPD Qualified Code(s): J44.9 - Chronic obstructive pulmonary disease, unspecified Code(s): J44.9 - Chronic obstructive pulmonary disease, unspecified Status: Acute Assessment and Plan: No acute issues. He was able to be weaned off oxygen with an O2 saturation of 97% this afternoon. (3) Sleep apnea: Qualifiers: Sleep apnea type: obstructive Qualified Code(s): G47.33 - Obstructive sleep apnea (adult) (pediatric) Code(s): G47.30 - Sleep apnea, unspecified Status: Acute Assessment and Plan: No acute issues, continue CPAP and follow-up with PCP (4) A-fib: Code(s): I48.91 - Unspecified atrial fibrillation Status: Acute Assessment and Plan: No acute issues, Xarelto will be resumed on discharge (5) CHF (congestive heart failure): Code(s): I50.9 - Heart failure, unspecified Status: Acute Assessment and Plan: No acute issues, follow-up with PCP and Cardiology DS: Summary Hospital Course Reason for hospitalization: This is a 64-year-old man who was followed as an outpatient by Dr. Corea for a ventral hernia. His hernia had increased in size and was more symptomatic with occasional nausea and pain after eating, therefore decision was made to proceed with surgical repair. He presented on 09/01/2024 for robotic assisted laparoscopic incarcerated ventral hernia repair with Ventralight ST mesh by Dr. Corea. Hospital Course: He underwent robotic assisted laparoscopic incarcerated ventral hernia repair with Ventralight ST mesh by Dr. Corea. Following surgery, he was monitored on the medical surgical floor. His diet was advanced as tolerated. His postoperative pain was well controlled with oral analgesics. He was initially on a few liters of oxygen following surgery, which was able to be titrated off postop day 1. Oxygen saturation was checked this afternoon again was 97%. He was tolerating activity and voiding without difficulty. After discussing the case with Dr. Corea, he was stable for discharge this afternoon. He was instructed to continue his abdominal binder. All discharge instructions were discussed in detail and questions were all answered. Status at Discharge Functional status at discharge: independent ambulation Overall status at discharge: patient is progressing back to baseline Time Spent with Patient Time attestation: Total time spent providing and/or coordinating discharge services: Time spent: Greater than 30 minutes Exam Const: General: comfortable and no acute distress Orientation/consciousness: patient oriented x3 Resp: Effort & Inspection: normal respiratory effort Auscultation: clear to auscultation bilaterally Cardio: Rate: regular rate Rhythm: regular rhythm GI: Other: Abdomen nondistended and soft. Port site incisions are dry with glue intact, small puncture site in the supraumbilical are with minimal dried bloody drainage on a gauze dressing, which was removed and no bleeding or drainage noted. Reapplied a gauze pressure dressing to this area. He has appropriate expected incisional tenderness. No guarding. Bowel sounds active. Skin: General skin exam: normal color Neuro: General: moves all extremities and no focal motor deficits Extrem: General: no edema DS: Data Data Completed and Pending Pending studies at discharge: Pending at discharge 09/01/24 12:30 Surgical [PTH] Routine Procedures/Treatments: Robotic assisted laparoscopic incarcerated ventral hernia repair with Ventralight ST mesh by Dr. Corea on 09/01/24 Discharge Plan Discharge Patient Disposition: Home Discharge Instructions: * No lifting more than 10 lb for at least 2 weeks until you see your surgeon in follow-up. Restrictions will be discussed at that appointment. * No fast or jerking movements * Walk at least 3 times daily. Stairs are okay. * Leave the gauze dressing on over your incision until Sunday, then you may remove this dressing and shower over your incisions. Until then, sponge bathe or keep your dressing dry. * Wear your abdominal binder for 2 weeks until seen by your surgeon. This needs to be on with any activity, while being up in the chair or walking. You may take it off to rest at night if needed. * Follow-up with Dr. Corea as scheduled on 09/16/2024 at 9:45 a.m. in our office. Call sooner with any surgical concerns or questions. * Your blood pressure has been borderline low. You can continue your home medications, but you need to check your blood pressure before taking your heart medications (digoxin and carvedilol). If your blood pressure is low (SBP 100 or less, DP 60 or less), then call your PCP before taking the heart medications as they can lower your blood pressure more. Monitor your blood pressure for the next few days and if it is low or high, please call your PCP for further direction. Patient Language: Italian Stand Alone Forms: General Discharge Instructions Follow-up/Referrals: Ximena Barraza MD [Primary Care Provider] - Call for Appointment Simone Corea MD [Physician] - Keep Reg. Scheduled Appt. Discharge Medications: New hydrocodone-acetaminophen 5-325 mg Tablet 1 tablet PO Q4-6H PRN (Reason: Pain Rated 4-6) Qty: 30 0RF Continued (DME) blood-glucose meter [Accu-Chek Guide Glucose Meter] Misc See Rx Instructions .Route Qty: 1 0RF Rx Instructions: Check blood glucose daily ketoconazole 2 % shampoo 1 applic topical 3XW Qty: 120 0RF (DME) Blood Glucose Test Strip See Rx Instructions .Route Qty: 50 0RF Rx Instructions: Check blood glucose daily (DME) lancets 28 gauge misc See Rx Instructions .Route Qty: 100 0RF Rx Instructions: Check blood glucose daily albuterol sulfate 90 mcg/actuation HFA aerosol inhaler 1 - 2 inh inhalation Q4-6H PRN (Reason: shortness of breath or wheezing) Qty: 8.5 2RF Combivent Respimat 20-100 mcg/actuation mist 1 puff inhalation QID Qty: 4 5RF Rx Instructions: space evenly during waking hours azelastine 137 mcg (0.1 %) spray,non-aerosol 137 mcg intranasal . q.h.s. Qty: 30 5RF Rx Instructions: administer into each nostril 1 or 2 sprays q.h.s. at bedtime budesonide-formoterol [Breyna] 160-4.5 mcg/actuation HFA aerosol inhaler 2 puff inhalation Q12H Qty: 10.2 5RF Rx Instructions: rinse and spit gabapentin 800 mg tablet 800 mg PO BID ibuprofen 800 mg tablet 800 mg PO ONCE PRN (Reason: pain) Qty: 90 0RF triamcinolone acetonide 0.1 % cream 1 applic topical BID Qty: 30 0RF Xarelto 20 mg tablet 20 mg PO QPM Qty: 90 2RF Rx Instructions: must administer with evening meal dapagliflozin propanediol [Farxiga] 5 mg tablet 5 mg PO DAILY Qty: 90 3RF furosemide 40 mg tablet 40 mg PO PRN simvastatin 40 mg tablet 40 mg PO QPM Jardiance 10 mg tablet 10 mg PO DAILY sildenafil [Viagra] 100 mg tablet 100 mg PO DAILY PRN (Reason: sexual activity) Qty: 10 11RF Rx Instructions: administer 30 minutes to 4 hours before activity potassium chloride 10 mEq capsule, extended release 10 meq PO DAILY Qty: 90 3RF carvedilol 6.25 mg tablet 6.25 mg PO BID Qty: 180 2RF Rx Instructions: must administer with a meal/food digoxin 250 mcg (0.25 mg) tablet 250 mcg PO DAILY Qty: 90 2RF Other Ambulatory Orders: Basic Metabolic Panel (Routine) Timeframe: 20240819 Location: Determined by Patient Ordered By: Enrique Bernal Digoxin (Routine) Timeframe: 20240819 Location: Determined by Patient Ordered By: Enrique Bernal Type and Screen 14 Day (Routine) Timeframe: 20240819 Location: Determined by Patient Ordered By: Enrique Bernal Quality VTE Prophylaxis VTE prophylaxis: mechanical ordered and pharmacologic ordered
--- NOTE | 2024-09-05 08:21 | W.PM.PROC2 ---
Procedure Note - Detailed Date of Procedure 09/01/24 Pre-op Diagnosis Incarcerated Ventral Hernia Post-op Diagnosis Same Procedure Performed Robotic assisted laparoscopic incarcerated ventral hernia repair with Ventralight ST mesh. Surgeon Simone Corea MD Emergency Medical Technician Basic Darlene Vasquez [facility] Anesthesia General Indications Patient is a 63-year-old gentleman who has had a chronic mid epigastric ventral hernia. Imaging studies showed there is a portion of the transverse colon incarcerated within the hernia sac however the patient has not had any episodes of bowel obstruction. He had extensive cardiac workup which delayed elective repair of the hernia. He has now been cleared by Cardiology to proceed with surgery. He presents now for robotic assisted laparoscopic are serrated ventral hernia repair with mesh. Findings The patient had a segment of the transverse colon measuring approximately 8 to 10 cm incarcerated within the mid epigastric abdominal wall hernia sac. The defect in the fascia measured approximately 5x4cm. Omentum was also incarcerated within the hernia sac and portion of the falciform ligament. After induction of the hernia sac contents the defect was closed primarily and then a piece of Bard Ventralight ST mesh measuring [id number] was placed in a intraperitoneal onlay fashion to reinforce the closure of the defect. Description of Procedure After informed consent was obtained patient brought to the operating room was placed supine position and general endotracheal anesthesia was administered. A Garcia catheter was placed decompress the bladder the abdomen was then prepped and draped usual sterile fashion. A time-out was then performed correctly identifying the patient as well as procedure to be performed. He was given perioperative IV antibiotics. I then entered the abdomen left upper quadrant utilizing a 5mm Optiview port. Once inside the abdomen insufflated to adequate pneumoperitoneum of 15mmHg of CO2. I then placed additional robotic trocar ports along the left lateral abdominal wall under direct visualization. The [employer] robot was then brought to the patient's bedside and docked to the right side of the patient. The robotic arms were then attached the robotic ports. Robotic instruments were then advanced into the abdomen under direct visualization. I then scrubbed out the procedure sent down at the robotic console to perform the dissection. The patient had incarceration of a large portion of the omentum as well as a portion of the falciform ligament and a portion of the transverse colon within the hernia defect in the mid epigastric region. Utilizing robotic instruments and the energized robotic ester I then proceeded to divide adhesions of the omentum to the hernia sac. I was able to reduce a large portion of the hernia sac and the falciform ligament and the upper portion of the hernia and as I got closer to the incarcerated transverse colon I was careful to try to stay close to the hernia sac. One point I did cause some cautery effect to the serosa on the anti mesenteric portion of the transverse colon. I recognized this immediately and then proceeded to place 2 for 3-0 Vicryl sutures to reinforce this area. There was no enterotomy made. Once this was done I felt would be easier to actually incise the hernia sac and then removed the hernia sac with the transverse colon attached. Once this was done I had completely removed the hernia sac from the subcutaneous tissues and then utilizing the robotic ester resected the hernia sac off of the transverse colon and omentum after I had reduced from the hernia defect. This hernia sac was placed into an Endo-Catch bag and brought out at the end the procedure. I then extensively evaluated the transverse colon that had been incarcerated there was no evidence of any further cautery changes to the wall and no enterotomies made. I then proceeded to take down the falciform ligament and resected close to the liver. The resected portion of falciform ligament in the epigastric region was left in the abdomen to be removed at the end the procedure as well. I measured the hernia defect and it was approximately 5x4cm. I then proceeded to close the defect primarily with a running#1 absorbable Stratafix suture. The defect closed easily and the epigastric and periumbilical diastasis was imbricated utilizing the suture used to close the defect. I then measured and felt that a piece of Bard Ventralight ST mesh measuring [id number] would easily cover the closed defect and imbricated diastasis with wide overlap of at least 5cm in all directions. The mesh was introduced into the abdomen through a bedside medical research assistant 12mm trocar port which was placed at the beginning of the procedure. The mesh was then laid out such that the barrier surface the mesh was placed intra-abdominal viscera and the prosthetic surface of mesh would be in contact with the undersurface of the anterior abdominal wall. A suture Passer was then passed through the anterior abdominal wall and the suture on the center of the mesh was pulled transfascially to approximate the mesh to the undersurface of the anterior abdominal wall. Mesh was was situated such that the long axis of the mesh was parallel to the long axis of the abdomen. I then circumferentially secured the mesh to the undersurface of the anterior abdominal wall and intraperitoneal onlay fashion utilizing interrupted absorbable 2-0 V lock sutures. The mesh laid out very nicely with a small amount of tension to account for the pneumoperitoneum on the abdominal wall. Once the mesh was circumferentially fixated I then removed the positioning device on the mesh. It was removed through the bedside medical research assistant port site and all the sutures on the positioning device were accounted for. I then placed 1 more additional 2-0 absorbable V lock sutures through the central portion of mesh to further approximate the mesh to the muscle. I then checked the colon and appeared hemostatic as was the omentum. I then aspirated a small amount of blood clot out of the abdomen. The hernia sac and the falciform ligament were then placed into an Endo-Catch bag and brought out through the 12mm trocar port fascial defect. The falciform ligament was discarded and the hernia sac was sent to pathology for examination. I then robotic instruments were removed from the patient's abdomen the [employer] robot was undocked from the patient's bedside. I then scrubbed back in the procedure and then used the robotic camera freehand to visualize review removing all the trocar ports under direct visualization. Prior to removing the ports I placed 0 Vicryl sutures transfascially under direct visualization utilizing suture assist device to close the 8 and 12mm trocar port sites. Once all the ports removed abdomen decompressed I then irrigated all the port sites which were hemostatic and then closed utilizing a running subcuticular 4-0 Monocryl suture at the skin level. The small puncture site at the hernia defect was closed utilizing skin glue. All the port site incisions were then covered with skin glue as well. The patient tolerated the procedure well no complications. All sponges, needles, and instrument counts were correct at the end procedure. EBL was _ 50 __cc. The patient was awakened and taken to recovery in stable and satisfactory condition. Implants Bard Ventralight ST mesh measuring [id number] placed in an intraperitoneal onlay fashion. Estimated Blood Loss 50 Urine Output 150 Drains No Packing No Pathology Yes (Hernia sac to pathology) Complications No immediate complications Condition Stable Disposition PACU [facility] Billing Surgery - Charge Forward: Surgery Billing
== END 2024-09-02 18:42 | disposition home or self-care (01) ==
LOC: ANHSURGERY 15:10 → ANH3MEDSUR 16:13
PROVIDERS: Anesthesiology; PCP Family Medicine; Visit Provider Surgery
PROC: (CPT 49594; principal; 2024-09-01 09:00)
DX: K43.6 Other and unspecified ventral hernia with obstruction, without gangrene (principal); J44.9 Chronic obstructive pulmonary disease, unspecified; G47.33 Obstructive sleep apnea (adult) (pediatric); Z99.89 Dependence on other enabling machines and devices; I48.91 Unspecified atrial fibrillation; I50.9 Heart failure, unspecified
CPT/HCPCS: 49594; 36415; 80048; 80162; 82948; 86850; 86900; 86901; 88302; A9270; C1781; J0360; J0690; J1100; J1171; J1650; J1885; J2405; J2704; J3010; J7030; J7120

== ENCOUNTER 2024-10-21 13:09 | Outpatient (CLI) | payer MEDICARE, MEDICAID, SELFPAY ==
--- NOTE | ~2024-10-21 | US_ITS ---
EXAMINATION: US soft tissue abdomen DATE: 10/21/2024 13:37 INDICATION: Palpable area at the site of a recent ventral hernia repair TECHNIQUE: Multiple grayscale and Doppler ultrasound images of the right supraumbilical region of urmila redmond were obtained. COMPARISON: None FINDINGS: 6.0 x 5.9 x 4.7 cm complex cystic lesion with multiple anechoic spaces with intervening small hypoech oic regions and linear echogenic internal septations. Appearance most consistent with an evolving hem atoma. No evident defect in the underlying abdominal wall. No evident peristalsing bowel. IMPRESSION: 1. 6 cm complex subcutaneous fluid collection most consistent with a postoperative hematoma at the re gion of concern. Reviewed, dictated and finalized at location A. IMPRESSION: 1. 6 cm complex subcutaneous fluid collection most consistent with a postoperat javier hematoma at the region of concern.
== END 2024-10-21 13:10 | disposition home or self-care (01) ==
PROVIDERS: PCP Family Medicine; Visit Provider Surgery
DX: Z98.890 Other specified postprocedural states (principal); Z87.19 Personal history of other diseases of the digestive system
CPT/HCPCS: 76705

== ENCOUNTER 2025-04-02 10:01 | Outpatient (CLI) | payer MEDICARE, MEDICAID, SELFPAY ==
--- OUTSIDE RECORDS SUMMARY | 2009-04-16 07:40 | XMS_ITS | Continuity of Care Document ---
Author Organization [facility] Address [address] [place] [address] Phone Care Team Providers Care [employer] Associate Name Role Phone James POPE, Inge Unavailable Unavailable Medications Medication Instructions Dosage Effective Dates (start - stop) Status Comments Zithromax Z-Mik 250 mg Tab take 2 tablet (500MG) by ORAL route every day for 1 day then 1 tablet (250 mg) by oral route once daily for 4 days 500 MG - Active Combivent 18 mcg-103 mcg/Actuation Aerosol Inhaler inhale 2 puff by INHALATION route 4 times every day - Active nystatin-triamcinolon e 100,000 unit/g-0.1 % Topical Cream apply by TOPICAL route 2 times every day to the affected area(s)morning and evening - Active Procedures Procedure Date COLLECTION OF VENOUS BLOOD BY VENIPUNCTU RE OFFICE OUTPT NEW 30 MIN COLLECTION OF VENOUS BLOOD BY VENIPUNCTU RE Results Test Name Date and Time Measure Units Reference Range Abnormal Flag Status Comments Panel Description: POC GLUCOSE Final POC GLUCOSE 2008 13:51:0 0 76 mg/dL 65-99 N Final FASTING REFERE NCE INTERVAL POINT OF CARE FINGERSTICK GLUCOSE RESULTS MAY VARY FROMVENOUS GLUCOSE METHODOLOGIES. ANY RESULTS EXHIBITINGINCONSISTENCY WITH THE PATIENTS'S CLINICAL STATUS SHOULDBE REPEATED USING A VENOUS GLUCOSE METHOD. Test performed at [facility] [place] [id number]: KAILEE SAUCEDA MT([facility]) Panel Description: POC HEMOGLOBIN A1C Final POC HEMOGLOBIN A1C 2008 13:51:0 0 6.1 % OF TOTAL HGB H Final NON-DIABETC <6.0 % Test performed at [facility] [facility] [id number]: KAILEE SAUCEDA MT([facility]) Advance Directives Directive Yes / No Effective Date File Name Resuscitation Not Answered N/A N/A Life Support Not Answered N/A N/A Intubation Not Answered N/A N/A Antibiotics Not Answered N/A N/A IV Fluid Support Not Answered N/A N/A Tube Feed Not Answered N/A N/A Other Directive N/A N/A WARNING:The information contained in this section is historical and is provided for information only and does not constitute a legal document or any assurance that the information is still accurate. Please verify the information with the ordaz of the legal document before using it for clinical purposes. Encounters Encounter Description Practice Location Reason(s) For Visit Diagnoses Date Provider Providers Copied on Encounter [facility], [address], [place], [place], [id number] , tel: [phone] [facility] abnormal glucose (chief complaint) Screening for diabetes mellitus [address] Inge. [address], [place], [place], [id number] , [place]. tel: [phone] OFFICE OUTPT NEW 30 MIN [facility], [address], [place], [place], [id number] , [place] tel: [phone] [facility] sleep apnea (chief complaint) back pain (chief complaint) breathing problems (chief complaint) stomach bulging (chief complaint) left knee pain (chief complaint) Routine general medical examination at a health care facilityOverweight and obesityInsomnia with sleep apnea, unspecifiedShortness of breathRoutine general medical examination at a health care facility 2 [address] Inge. [address], [place], [place], [id number] , [place]. tel:[phone] Family History Family Member Type Diagnosis Age At Onset Mother Problem (finding) asthma Father Problem (finding) asthma Father Problem (finding) hypertension Payers Payer name Insurance type Covered republican ID Authoriza tion(s) No Information Social History Type Description Quantity Date Captured Comments Alcohol Use Details Unknown Caffeine Use Details Unknown Tobacco Use Status No Information Smoking Status No Information Sex Male Chief Complaint And Reason For Visit From encounter dated 04/16/2009 13:40'. abnormal glucose (chief complaint) Reason For Referral Reason For Referral No Information Plan Of Treatment Date Type Action Status Goal Lipid Panel. Due on due Goal ALT. Due on due Goal PSA. Due on due Goal BMP fasting. Due on due Goal AST. Due on due Goal Urinalysis. Due on due Referral Referred To: [address], [address] Ordered: Referral: [facility]. Radiology. Diagnostic testing. ordered Future Order: Lab Order JORDIN YOUNG ([id number]), Appointment on: , Collected on: , Sent on: Sent History Of Present Illness Encounter Date Complaint History Of Prese nt Illness No Information Functional Status Date Functional Assessmen t No Information Instructions Date Instruction Additional Infor mation No Information Assessments Type Assessment Date No Information Patient Care Teams Name Effective Dates (start - stop) Status Members No Information
[2025-04-02 10:36] LABS: Hematocrit 44.8 % (42.0-52.0); Hemoglobin 13.9 g/dL (14.0-18.0); Immature Granulocyte Percent A 0.4 % (0-0.5); Immature Platelet Fraction Pct 6.8 % (0.9-11.2); Lymphocytes Absolute Auto 1.65 K/mm3 (0.9-3.2); Mean Corpuscular HGB Conc 31.0 g/dl (32-36); Mean Corpuscular Hemoglobin 31.4 pg (26-34); Mean Corpuscular Volume 101.1 fl (80-100); Nucleated Red Blood Cells Absolute Auto 0.000 K/mm3 (0.0-0.012); Nucleated Red Blood Cells Perc 0.0 % (0.0-0.2); Platelet Count Result 128 k/mm3 (150-375); Red Blood Count 4.43 M/mm3 (4.6-6.20); White Blood Count 5.3 K/mm3 (4.5-10.0)
[2025-04-02 10:52] LABS: INR 1.2; Prothrombin Time 15.0 Seconds (11.1-14.7)
[2025-04-02 10:55] LABS: Iron 93 ug/dL (49-181)
[2025-04-02 10:56] LABS: Alanine Aminotransferase 27 U/L (6-50); Albumin Level 3.9 g/dL (3.5-5.1); Alkaline Phosphatase 71 U/L (38-126); Anion Gap 3 mmol/L (4-12); Aspartate Amino Transferase 37 U/L (17-59); Bilirubin,Total 0.6 mg/dL (0.2-1.3); Blood Urea Nitrogen 30 mg/dL (9-20); Calcium 8.8 mg/dL (8.4-10.2); Carbon Dioxide 34 mmol/L (22-30); Chloride 105 mmol/L (98-107); Cholesterol 165 mg/dL (0-200); Estimated Glomerular Filt Rate > 60; Glucose 87 mg/dL (65-110); HDL Direct 45 mg/dL; Magnesium 1.9 mg/dL (1.6-2.3); Potassium 4.3 mmol/L (3.4-5.0); Sodium 142 mmol/L (137-145); Total Protein 6.9 g/dL (6.3-8.2); Triglycerides 62 mg/dL (<150)
[2025-04-02 11:14] LABS: Percent Iron Saturation 31 % (20-50)
[2025-04-02 11:18] LABS: Free T4 Free Thyroxine 0.99 ng/dL (0.78-2.19)
[2025-04-02 11:31] LABS: Hemoglobin A1C 5.3 % (<5.7); Prostate Specific Antigen 1.4 ng/mL (< OR = 4.0); Thyroid Stimulating Hormone 3.230 uIU/mL (0.465-4.680)
[2025-04-02 11:37] LABS: Ferritin 128.00 ng/mL (11.1-264)
[2025-04-02 12:07] LABS: Vitamin B12 > 1000.0 pg/mL (239-931)
--- OUTSIDE RECORDS SUMMARY | 2025-04-02 18:22 | XMS_ITS | Clinical Summary ---
Author Organization [facility] Address [facility] [place] [address] Care Team Providers Care Business Support Professional Name Role Phone Davi Alyce Garcia Primary Care Provide r Allergies Active Allergy Reactions Criticality Noted Date Comments Lidocaine Angioedema,Swelling Medium 11/25/2021 Active Problems Problem Noted Date Diagnosed Date Reducible bulge of abdominal wall 06/28/2023 Fatigue 09/09/2019 Morbid obesity 09/09/2019 Non-seasonal allergic rhinitis due to pollen Obstructive sleep apnea 09/09/2019 Pulmonary hypertension 09/09/2019 History of pneumonia 05/18/2016 Hypoxemia 05/18/2016 Shortness of breath 05/18/2016 Sleep disorder 05/18/2016 Resolved Problems Problem Noted Date Diagnosed Date Resolved Date Non-smoker 09/09/2019 11/26/2023 Social History Tobacco Use Types Packs/Day Years Used Date Smoking Tobacco: Never Assessed Sex and Gender Information Value Date Recorded Sex Assigned at Not on file Legal Sex Male 11:15 PM [employer] Gender Identity Not on file Sexual Orientation Not on file Plan of Treatment Health Maintenance Due Date Last Done Comments Colorectal Cancer Screening Colonoscopy (10 Years) 1958 Hepatitis C 1976 DTaP, Tdap and Td Vaccines ( 1 - Tdap) 1977 Pneumococcal Vaccine: 50+ Ye ars (1 of 1 - PCV) 2008 Zoster Vaccines (1 of 2) 2008 Annual Medicare Wellness Visit 08/18/2023 COVID-19 Vaccine (1 - 2024-2 6 season) 2025 Influenza Adult (#1) 2025 RSV Immunization or 60+ Years (1 - 1-dose 75+ series) 2033 Hepatitis A Vaccines Aged Out No long er eligible based on patient's age to complete this topic Meningococcal B Vaccine Aged Out No l onger eligible based on patient's age to complete this topic Meningococcal Vaccine Aged Out No pradip joe eligible based on patient's age to complete this topic RSV Immunizations Under 20 Months Aged Out No longer eligible based on patient's age to complete this topic Insurance MEDICARE Care Teams Business Support Professional Relationship Specialty Start Date End Date Davi Alyce Garcia PA [address] [place] [address] PCP - General Physician [employer] [facility] 09/10/23
--- OUTSIDE RECORDS SUMMARY | 2025-04-02 18:22 | XMS_ITS | Data Portability ---
Author Organization [facility] Address [address] [place] [address] Care Team Providers Care [place] Hand Name Role Phone VANGIE TELLO Primary Care Provider [phone] Assessment No assessment recorded. Plan of Treatment Reminders Order Date Submit Date Provider Last Modified By Organization Details Last Modified Time Details Appointments None recorded. Lab HbA1c (hemoglob in A1c), blood 2022 023 [facility] In-Office Order, Internal Use Only DO Not Attach Compendium DO Not Attach Compendium, Do Not Delete/merge, [id number] 3 17:30:48 HbA1c (hemoglob in A1c), blood 2022 023 [facility], [address], [address], [place], [address], 3 18:19:31 microalbu min/creat inine, mass ratio, urine 2022 023 [facility] [address], [address], [place], [address], 3 18:23:48 CMP, serum or plasma 2022 023 [facility] Matti Wilson, [address], [place], [address], 3 18:23:48 lipid panel, serum 2022 023 [facility], 2022 Matti Wilson, [address], [place], [address], 3 18:23:48 noninvasi ve colorecta l cancer DNA + occult blood screening , QL, stool 2022 023 [facility], [address], [address], [place], [address], 3 08:11:02 noninvasi ve colorecta l cancer DNA + occult blood screening , QL, stool 2022 023 [facility], [address], [address], [place], [address], 4 09:04:56 HbA1c (hemoglob in A1c), blood 2022 023 [facility] In-Office Order, Internal Use Only DO Not Attach Compendium DO Not Attach Compendium, Do Not Delete/merge, [id number] 3 16:28:51 Referral cardiolog ist referral - Please call him for appointme nt, thanks! [address] Cardiology, [address] [place], [address], 4 05:08:48 otolaryng ologist referral - Please call patient for appointme nt,thanks ! [address] - Otolaryngology (Ent), [address] [facility], [address], [place], [address], 4 05:08:47 general surgeon referral - General surgery for hernia of abdomen, please call patient for appointme nt,thanks ! [address] General Surgery, [address], [facility] [address], [place], [address], 4 05:08:47 dermatolo gist referral [address] Dermatology, [address] [facility], [place], [address], 4 05:08:46 dermatolo gist referral 2022 023 [email or web address] [facility] Dermatology, [address] [facility], [place], [address], 3 10:12:31 chiroprac tor referral - Please call patient for appointme nt, thanks! 2022 023 [email or web address] [facility] [place], [address], [place], [address], 3 09:20:00 Procedures pulmonary stress test, simple (PROC) 2023 024 [facility] (Cardio Ekg), [address], [place], [address], 4 05:01:49 Surgeries None recorded. Imaging PFT, complete - W/ Post Bronchodi lator Spirometr y 2023 024 [facility] (Cardio Ekg), [address], [place], [address], 4 05:01:48 Medication Orders famotidin e 20 mg tablet 2023 024 HERNSHAW [facility] #27187, [address], [place], [place], [id number], 4 17:25:57 magnesium oxide 400 mg (241.3 mg magnesium ) tablet 2023 024 HERNSHAW [facility] #89966, [address] , [place], [place], [id number], 4 17:25:58 Viagra 100 mg tablet 2023 024 HERNS[facility] #35769, [address], [place], [place], [id number], 4 17:25:58 gabapenti n 800 mg tablet 2023 024 [facility] #40155, [address], [place], [place], [id number], 4 17:25:57 aspirin 325 mg tablet,de layed release 2023 024 [facility] #23636, [address], [place], [place], [id number], 4 17:25:58 pioglitaz one 45 mg tablet 2023 024 [facility] #83569, [address], [place], [place], [id number], 4 17:25:58 simvastat in 40 mg tablet 2023 024 [facility] #68971, [address] , [place], [place], [id number], 4 17:25:59 albuterol sulfate HFA 90 mcg/actua tion aerosol inhaler 2023 024 [facility] #58043, [address], [place], [place], [id number], 4 17:25:57 ipratropi um 0.5 mg-albute rol 3 mg (2.5 mg base)/3 mL nebulizat ion soln 2023 024 [facility] #37849, [address], [place], [place], [id number], 4 17:25:56 Symbicort 160 mcg-4.5 mcg/actua tion HFA aerosol inhaler 2023 024 [facility] #96733, [address], [place], [place], [id number], 4 17:25:59 carvedilo l 6.25 mg tablet 2023 024 [facility] #25350, [address] , [place], [place], [id number], 4 17:25:55 digoxin 250 mcg (0.25 mg) tablet 2023 024 [facility] #90467, [address] [place], [place], [id number], 4 17:25:55 diltiazem CD 240 mg capsule,e xtended release 24 hr 2023 024 [facility] #65892, [address] , [place], [place], [id number], 4 17:25:57 furosemid e 40 mg tablet 2023 024 [facility] #27139, [address] [place], [place], [id number], 4 17:25:58 potassium chloride ER 10 mEq tablet,ex tended release 2023 024 [facility] #40532, [address] [place], [place], [id number], 4 17:25:56 magnesium oxide 400 mg (241.3 mg magnesium ) tablet 2022 023 [facility] #75130, [address] [place], [place], [id number], 3 17:30:58 pioglitaz one 45 mg tablet 2022 [facility] #53672, [address], [place], [place], [id number], 17:31:00 ipratropi um 0.5 mg-albute rol 3 mg (2.5 mg base)/3 mL nebulizat ion soln 2022 [facility] #61611, [address], [place], [place], [id number], 17:30:59 Symbicort 160 mcg-4.5 mcg/actua tion HFA aerosol inhaler 2022 [facility] #19870, [address], [place], [place], [id number], 17:30:57 ibuprofen 800 mg tablet 2022 023 [facility] #29013, [address], [place], [place], [id number], 3 17:30:59 Viagra 100 mg tablet 2022 023 [facility] #21132, [address], [place], [place], [id number], 3 17:19:55 gabapenti n 800 mg tablet 2022 023 [facility] #27348, [address], [place], [place], [id number], 17:30:57 simvastat in 40 mg tablet 2022 023 [facility] #09564, [address], [place], [place], [id number], 3 17:20:01 potassium chloride ER 10 mEq tablet,ex tended release 2022 023 [facility] #53117, [address], [place], [place], [id number], 3 17:19:58 Zithromax Z-Mik 250 mg tablet 2022 023 [facility] #62091, [address], [place], [place], [id number], 3 19:09:21 magnesium oxide 400 mg (241.3 mg magnesium ) tablet 2022 023 [facility] #24925, [address] [place], [place], [id number], 3 18:23:47 famotidin e 20 mg tablet 2022 023 [facility] #87550, [address], [place], [id number], 3 18:23:48 mupirocin 2 % topical ointment 2022 023 [facility] #69320, [address], [place], [id number], 3 18:23:46 aspirin 325 mg tablet,de layed release 2022 023 [facility] #51277, [address], [place], [id number], 3 18:23:50 pioglitaz one 45 mg tablet 2022 023 [facility] #64668, [address], [place], [id number], 3 18:23:47 ipratropi um 0.5 mg-albute rol 3 mg (2.5 mg base)/3 mL nebulizat ion soln 2022 023 [facility] #07957, [address], [place], [id number], 3 18:23:50 EpiPen 2-Mik 0.3 mg/0.3 mL injection , auto-inje ctor 2022 023 [facility] #00156, [address], [place], [id number], 3 18:23:49 ibuprofen 800 mg tablet 2022 023 [facility] #31253, [address] [place], [place], [id number], 3 18:23:48 gabapenti n 800 mg tablet 2022 023 [facility] #50728, [address], [place], [id number], 3 18:23:49 Viagra 100 mg tablet 2022 023 HERNSHA[facility], [address] [place] [address], [id number], 4 16:53:25 simvastat in 40 mg tablet 2022 023 [facility] #24710, [address] [place], [place], [id number], 3 18:23:46 carvedilo l 6.25 mg tablet 2022 023 [facility] #03304, [address], [place], [id number], 3 18:23:49 digoxin 250 mcg (0.25 mg) tablet 2022 023 [facility] #32985, [address] [place], [place], [id number], 3 18:23:47 diltiazem CD 240 mg capsule,e xtended release 24 hr 2022 023 [facility] #11607, [address] [place], [place], [id number], 3 18:23:50 furosemid e 40 mg tablet 2022 023 [facility] #13712, [address] [place], [place], [id number], 3 18:23:51 potassium chloride ER 10 mEq tablet,ex tended release 2022 023 [facility] #50321, [address], [place], [id number], 3 18:23:49 Viagra 100 mg tablet 2022 023 [facility] #02122, [address], [place], [id number], 3 16:48:21 hydrocodo ne 10 mg-acetam inophen 325 mg tablet 2022 023 [facility] #94831, [address], [place], [id number], 3 17:00:31 pioglitaz one 30 mg tablet 2022 023 [facility] #09479, [address], [place], [id number], 17:22:06 simvastat in 40 mg tablet 2022 023 [facility] #80208, [address] [place], [place], [id number], 16:48:21 Patient TargetsNo targets recorded. Patient Instructions Encounter Date Encounter Id Patient Instructions Last Modified By Organization Details Last Modified Time 06/21/2022 [id number] rash: care instructions [facility] Not available 06/21/2022 16:28:52 healthy upper back: exercises [facility] Not available 06/21/2022 16:28:52 heart failure: care instructions [facility] Not available 06/21/2022 16:48:06 learning about heart failure [facility] Not available 06/21/2022 16:48:06 02/07/2023 [id number] learning about type 2 diabetes [facility] Not available 02/07/2023 18:23:32 type 2 diabetes: care instructions [facility] Not available 02/07/2023 18:23:33 A healthy lifestyle: care instructions [facility] Not available 02/07/2023 18:23:33 heart failure: care instructions [facility] Not available 02/07/2023 18:23:33 learning about heart failure [facility] Not available 02/07/2023 18:23:33 rash: care instructions [facility] Not available 02/07/2023 18:23:33 04/11/2023 [id number] influenza (flu) vaccine: [facility] Not available 04/11/2023 18:37:40 hernia: care instructions [facility] Not available 04/11/2023 16:59:50 07/25/2023 [id number] hernia: care instructions [facility] Not available 07/25/2023 17:41:58 07/26/2023 [id number] sleep apnea: car e instructions ajamous Not [...] [facility], Encounter Date: 06/21/2022 Medicare Insurance Specialist Referral for E ruption Referring Physician: Vangie Tello [facility], Encounter Date: 06/21/2022 Medicare Insurance Specialist Referral for E ruption Referring Physician: Vangie Tello [facility], Encounter Date: 02/07/2023 General Surgeon Referral for Hernia of anterior abdominal wall General surgery for hernia of abdomen, please call patient for appointment,thanks! Referring Physician: Vangie Tello [facility], Encounter Date: 04/11/2023 Business Support Associate Referral fo r Impacted cerumen in right ear Please call patient for appointment,thanks! Referring Physician: Vangie Tello [facility], Encounter Date: 04/11/2023 Object Oriented Programmer Referral for Ch ronic atrial fibrillation Please call him for appointment, thanks! Referring Physician: Vangie Tello [facility], Encounter Date: 07/25/2023 Results Created Date Observation Date Name Description Value Unit Range Abnormal Flag Note LastModifiedBy Organization Detail LastModifiedTime 06/21/19 24 06/21/2023 COLOG UARD cologuard result Cancel led - Order d not applic able Not Available [facility] [address], [place], [address], 06/21/2023 09:04:55 02/09/20 23 02/08/2023 COLOG UARD cologuard result Cancel led - Duplic ate Order not applic able Not Available [facility] [address], [place], [address], 02/08/2023 08:11:02 06/23/19 23 06/23/2022 COLOG UARD cologuard result Cancel led - Duplic ate Order not applic able Not Available [facility] [address], [place], [address], 06/23/2022 11:41:44 05/24/20 22 05/25/2022 DIABE ZORAN PATIE NT EDUCA TION pdf . Not Available [facility] ([facility]) [address] [facility], [place], [address], 05/25/2022 08:14:15 05/24/20 22 05/25/2022 HEMOG LOBIN A1C hemoglobin A1C 5.6 % 4.8-5. 6 Predi abete s: 5.7 - 6.4 Diabe zoran: >6.4 Glyce kai contr ol for adult s with diabe zoran: <7.0 Not Available [facility] ([facility]) [address] [facility], [place], [address], 05/25/2022 08:14:15 05/24/20 22 05/25/2022 MAGNE SIUM magnesium 1.8 mg/dL 1.6-2. 3 Not Available [facility] ([facility]) [address] [facility], [place], [address], 05/25/2022 08:14:16 05/24/20 22 05/25/2022 HBSAG SCREE N HBsAg screen Negati ve negati ve Not Available [facility] ([facility]) [address] [facility], [place], [address], 05/25/2022 08:14:16 05/24/20 22 05/25/2022 HEPAT ITIS B SURF AB QUANT hepatitis B surf Ab quant <3.1 mIU/m L immuni ty>9.9 below low normal Statu s of Immun ity Anti- HBs Level ----- ----- ----- --- ----- ----- ---- Incon siste nt with Immun ity 0.0 - 9.9 Consi stent with Immun ity >9.9 Not Available [facility] ([facility]) [address] [facility], [place], [address], 05/25/2022 08:14:17 05/24/2005/25/2022 PROST ATE-S PECIF IC [...] t be inter prete d as absol paskenta evide nce of the prese nce or absen ce of felipe mendoza se. Not Available [facility] ([facility]) [address] [facility], [place], [address], 05/25/2022 08:14:18 05/24/2005/25/2022 HIV AB/P2 4 AG WITH REFLE X HIV Ab/P24 Ag screen Non Reacti ve nonrea ctive HIV Negat javier HIV-1 /HIV- 2 antib odies and HIV-1 p24 antig en were NOT detec dolly. There is no labor atory evide nce of HIV infec tion. Not Available [facility] ([facility]) [address] [facility], [place], [address], 05/25/2022 08:14:18 06/21/1906/21/2022 HbA1c (hemo globi n A1c), blood HbA1c 5.3% Not Available In-Office Order Internal Use Only DO Not Attach Compendium DO Not Attach Compendium, Do Not Delete/merge, [id number] 06/21/2022 16:21:07 04/11/20 23 04/11/2023 HbA1c (hemo globi n A1c), blood HbA1c 5.5% Not Available In-Office Order Internal Use Only DO Not Attach Compendium DO Not Attach Compendium, Do Not Delete/merge, [id number] 04/11/2023 17:30:33 09/26/19 24 09/24/2023 CPAP downl oad* No observ ation record ed. [facility] ([facility]) [facility] , [place], [address], 10/01/2023 12:01:21 Result Notes None recorded. Problems Name Problem SNOMED Code Status Onset Date Resolution Date Notes Provider Name and Address Organization Details Recorded Time Diabetes mellitus 86100243 Active 2017 Not Available [facility] 4 18:42:20 Chronic congestive heart failure 95850730 Active 2018 Not Available [facility] 4 18:42:20 Upper respiratory infection 66957650 Active 2019 Not Available [facility] 4 18:42:20 Problem Notes None recorded. Procedures Surgical History Date Name Laterality Status Provider Name and Address Organization Details Recorded Time Appendectomy completed Sandro Hernandez MA [facility] 12/18/2016 14:58:41 Imaging Results None recorded. Procedure Notes None recorded. Medical Equipment None Reported. Allergies Allergen ID Allergen Name Allergen Category Reaction Reaction Severity Criticality Documentation Date Start Date Code Code System Note Provider Name and Address Organization Details Recorded Time 774581 glimepiri de medicatio n dizziness Not available Not available 01/16/2022 84507 RxNorm Sandro Hernandez MA null, [facility] 2 17:20:53 Medications Name Sig Start Date [...] oral route as directed for 90 days. 08/05 completed Not Available Not Available Not Available albuterol sulfate HFA 90 mcg/actua tion [...] blood by Pulse oximetry Heart rate Systolic And Diastolic Provider Name and Address Organization Details Last Updated DateTime 3 182.88 cm 40.4 kg/m2 202880. 53 g 93 % 93 % 95 /min 126/80 mm[Hg] Anya Kraft MA [place] [facility] 3 15:57:27 Date Recorded Body height Body mass index (BMI) Body weight Heart rate Oxygen saturation Oxygen saturation in Arterial blood by Pulse oximetry Systolic And Diastolic Provider Name and Address Organization Details Last Updated DateTime 4 182.88 cm 39.1 kg/m2 366465. 6 g 91 /min 95 % 95 % 142/80 mm[Hg] Taya Bryson MA [facility] 4 16:57:44 Date Recorded Body height Body mass index (BMI) Body weight Body temperature Respiratory rate Oxygen saturation Oxygen saturation in Arterial blood by Pulse oximetry Heart rate Systolic And Diastolic Provider Name and Address Organization Details Last Updated DateTime 4 182.88 cm 39.2 kg/m2 630556. 19 g 98 [degF] 18 /min 96 % 96 % 88 /min 124/78 mm[Hg] Eufemia Cali LPN [facility] 4 11:57:42 Date Recorded Body height Body mass index (BMI) Body weight Heart rate Oxygen saturation Oxygen saturation in Arterial blood by Pulse oximetry Systolic And Diastolic Provider Name and Address Organization Details Last Updated DateTime 3 182.88 cm 38.7 kg/m2 833531. 83 g 130 /min 98 % 98 % 143/77 mm[Hg] Taya Bryson MA [facility] 3 17:27:13 Date Recorded Body height Body mass index (BMI) Body weight Heart rate Oxygen saturation Oxygen saturation in Arterial blood by Pulse oximetry Systolic And Diastolic Provider Name and Address Organization Details Last Updated DateTime 3 182.88 cm 40.1 kg/m2 330110. 34 g 93 /min 95 % 95 % 142/86 mm[Hg] Taya Bryson MA [facility] 3 16:26:09 Social History Question Answer Notes LastModified by Organizat ion Details LastModified Time Tobacco Smoking Status Never Smoker Sandro Hernandez MA [facility] 12/18/2016 15:01:06 Do You Have An Advance Directive? No Information not available 04/11/2023 Are You Blind Or Do You Have [...] No Information not available 07/26/2023 Are You Deaf Or Do You Have Serious Difficulty Hearing? Yes Hard Of Hearing Information not available 04/11/2023 What Type Of Diet Are You Following? REGULAR Information not available 04/11/2023 What Is The Highest Grade Or Level Of School You Have Completed Or The Highest Degree You Have Received? [id number] Information not available 04/11/2023 Are There Any Guns Present In Your Home? No Information not available 11/03/2020 Do You Have A Medical Power Of Pork Cutlet Maker? No Information not available 07/26/2023 What Was The Date Of Your Most Recent Tobacco Screening? 07/26/2023 Information not available 07/26/2023 What Is Your Relationship Status? Single Information not available 04/11/2023 Do You Use Your Seat Belt Or Car Seat Routinely? Yes Information not available 04/11/2023 Do You Have Smoke And Carbon Monoxide Detectors In Your Home? Yes Information not available 11/03/2020 Do You Use Sunscreen Routinely? No Information not available 11/03/2020 Sex: Male Functional Status Question Answer Note LastModified by Organizat ion Details LastModified Time Do you use any illicit or recreational drugs? No Information not available 04/11/2023 Do you or have you ever used any other forms of tobacco or nicotine? No [email or web address] Information not available 06/21/2022 What is your level of alcohol consumption? None Former Drinker Information not available 12/18/2016 Are you currently employed? Yes Information not available 04/11/2023 Are you able to care for yourself independently? 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 Occasional Information not available 04/11/2023 Mental Status Question Answer Note LastModified by Organization D etails LastModified Time Do you feel stressed (tense, restless, nervous, or anxious, or unable to sleep at night)? [id number] Information not available 04/11/2023 Family History Relationship Description Onset Age of this Age Resolved Age Notes LastModified by Organization Details LastModified Time Brother Harmful pattern of use of alcohol Not available 12/18 14:59:27 Brother Asthma Not availabl e 12/18/2016 14:59:45 Brother Hypertensive disorder Not available 12/18 15:00:38 Brother Hypercholest erolemia Not available 12/18 15:00:53 Father Harmful pattern of use of alcohol Not available 12/18 14:59:27 Father Hypertensive disorder Not available 12/18 15:00:38 Father Hypercholest erolemia Not available 12/18 15:00:53 Mother Harmful pattern of use of alcohol Not available 12/18 14:59:27 Mother Asthma Not available 12/18/2016 14:59:45 Mother Disorder of thyroid gland Not available 12/18 14:59:54 Mother Heart disease Not available 12/18 15:00:06 Medical History Condition Response Diabetes Y Muscle, Joint, or Bone Problems Y Heart Attack (VT) Y High Blood Pressure Y Kidney or Bladder Problems Y Asthma Y High Cholesterol Y Immunizations Vaccine Type Date Status Note Provider Nam e and Address Organization Details Recorded Time COVID-19, mRNA, LNP-S, PF, 30 mcg/0.3 mL dose 1 completed Not Available [facility] 07/02/2023 18:42:20 SARS-COV-2 (COVID-19) vaccine, UNSPECIFIED 1 completed Not Available [facility] 07/02/2023 18:42:20 Influenza, split virus, quadrivalent, preservative 9 completed Not Available [facility] 06/14/2019 02:38:45 Influenza, split virus, quadrivalent, preservative 0 completed Vj Atkins LPN null, [place] [facility] 07/03/2019 11:52:46 COVID-19, mRNA, LNP-S, PF, 30 mcg/0.3 mL dose, deep-sucrose 2 completed Holly Peter MA null, [place] [facility] 01/16/2022 15:46:41 Influenza, split virus, quadrivalent, PF 3 completed Vangie Tello MD Attn: Accounting[address] , [place], [address], [place] [facility] 04/11/2023 16:53:09 tetanus toxoid, unspecified formulation 7 completed Not Available [facility] 07/02/2023 18:42:20 Past Encounters Encounter ID Performer Location Encounter Start Date Encounter Closed Date Diagnosis/Indication Diagnosis SNOMED-CT Code Diagnosis ICD10 Code Diagnosis IMO Codes Diagnosis Note [id number] Vangie Tello MD [facility] (Adult Med) [address] [place] [address]290[address]707 0 12/18/2016 14:44:41 12/18/2016 16:45:09 Type 2 diabetes mellitus 33668816 E11.40 He can not tolerate the metformin which cause his stomach to be uncomforta ble, diarrhea and cramping. Diabetic p eripheral neuropathy 513966464 E11.40 Body mass index 40+ - severely obese 499817729 Z68.42 Diabetic diet, exercise and lose weight.kannan ling to try wellbutrin and naltrexone to lose weight. Chronic ob structive pulmonary disease 75510757 J44.9 History of partial lung collapsed, needs inhaler to breathe. Umbilical hernia 9083985 07 K42.9 Weight loss, will refer to surgeon in the future if his weight goes down. Screening for malignant neoplasm of colon 202702723 Z12.11 He refuses. Screening for malignant neoplasm of prostate 322353279 Z12.5 Coronary atherosclerosis 262971504 I25.83 Under the care of his cardiologi . [id number] [facility] [address] [place] [address] 32118[address]650 0 09/26/2017 12:08:48 09/26/2017 14:02:45 Diabetes mellitus 08571347 E11.40 Metformin messed his GI , Diarrhea. Chronic co ngestive heart failure 19313561 I50.9 Under the care of his cardiologi . Diabetic p eripheral neuropathy 604986467 E11.40 Exposure t o viral hepatitis 249327936 Z20.5 [id number] Michelle Goodman MD [facility] [address] [place] [address] 2 06/17/2018 09:49:13 06/18/2018 15:36:46 Pulmonary hypertension 67392590 I27.20 Multifacto rial Dyspnea on exertion 6084 5006 R06.09 Multifacto rial Obstructiv e sleep apnea syndrome 55132233 G47.33 Patient is not on treatment Tolerant non-smoker 8773 9003 Z87.891 Patient has second hand smoking Edema of l ower extremity 666822304 R60.0 Multifacto rial Hypoxemia 554112998 R09. 02 Patient is using O2 at home [id number] Michelle Goodman MD [facility] Medical [facility] ts [address] [place] [address] 83565-274 2 07/18/2018 11:25:15 07/18/2018 15:15:05 Obstructive sleep apnea syndrome 38096430 G47.33 Patient is not on treatment. His sleep study is not available to me. Dyspnea on exertion 6084 5006 R06.09 Multifacto rial Restrictiv e lung disease 31433247 J98.4 FEV1 36%, FVC 32%, FEV1/FVC 87%, BD-, TLC 43%, DLCO 47%, will add Combivent respimat to his regimen. I will get CXR on the patient. Tolerant non-smoker 8773 9003 Z87.891 Patient has second hand smoking Edema of l ower extremity 421438330 R60.0 Multifacto rial Hypoxemia 117368385 R09. 02 Patient has 6MWT showed he needs O2 at 2L/M. Will order portable concentrat or. Patient is using O2 at home. I will check D dimer. History of exposure to second hand smoke 058027980 Z77.22 Patient has second hand smoking. Moderate p ersistent asthma 379838139 J45.40 He uses Ventolin but having significan t SOB. [id number] Vangie Tello MD [facility] (Adult Med) [address] [place] [address] 07/22/2018 12:36:17 07/23/2018 10:17:25 Diabetes mellitus 84484014 E11.40 Metformin messed his GI , Diarrhea. Type 2 janusz betes mellitus 62294108 E11.40 He can not tolerate the metformin which cause his stomach to be uncomforta ble, diarrhea and cramping. Secondary peripheral neuropathy 341707 G63 Can not walk since being D/C from ICU for respirator y failure. Asthma 926091584 J45.90 9 Under the care of his allergy and immunology specialist . Chronic co ngestive heart failure 59309454 I50.9 Under the care of his cardiologi st. Chronic at rial fibrillation 545149810 I48.2 Under the care of his cardiologi st. 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 Has claustroph obia, will give one ativan prior to CAT scan. [id number] Vangie Tello MD [facility] (Adult Med) [address] [place] [address]603 0 10/02/2018 15:51:24 10/03/2018 15:11:25 Type 2 diabetes mellitus 45581062 E11.40 He can not tolerate the metformin which cause his stomach to be uncomforta ble, diarrhea and cramping. Diabetic p eripheral neuropathy 635796985 E11.40 Discussed with patient, wanting up grade dose gabapentin . Chronic ob structive pulmonary disease 41816153 J44.9 History of partial lung collapsed, needs inhaler to breathe. Second hand smoker in the past. Tinea corporis 43700140 B35.4 [id number] Michelle Goodman MD [facility] [address] [place] [address] 10/24/2018 11:35:36 10/25/2018 14:37:28 Obstructive sleep apnea syndrome 41601142 G47.33 Patient is not on treatment. AHI 24/hour Periodic l imb movement disorder 663513886 G47.61 On gabapentin - will increase dose to 400mg X3 Dyspnea on exertion 6084 5006 R06.09 Multifacto rial Restrictiv e lung disease 38519522 J98.4 FEV1 36%, FVC 32%, FEV1/FVC 87%, [...] hand smoking Edema of l ower extremity 281913063 R60.0 Multifacto rial Hypoxemia 054861089 R09. 02 Patient has 6MWT showed he needs O2 at 2L/M. Will order portable concentrat or. Patient is using O2 at home. I will check D dimer., homocystin e Moderate p ersistent asthma 316941083 J45.40 He uses Ventolin HFA but having significan t SOB. History of exposure to second hand smoke 502996437 Z77.22 Patient has second hand smoking. Diabetic p eripheral neuropathy 255776905 E11.40 On Gabapentin [id number] Vangie Tello MD [facility] (Adult Med) [address] [place] [address] 11/06/2018 15:22:10 11/06/2018 16:58:03 Type 2 diabetes mellitus 13729131 E11.40 He can not tolerate the metformin which cause his stomach to be uncomforta ble, diarrhea and cramping. Diabetic p eripheral neuropathy 055846826 E11.40 Discussed with patient, wanting up grade dose gabapentin . Chronic back pain 723535 002 M54.16 Stable. On gabapentin . Hernia of anterior abdominal wall 668211134 K43.9 Discussed with patient, agreed for the CAT scan. Has claustroph obia, will give one ativan prior to CAT scan. Chronic ob structive pulmonary disease 88837415 J44.9 History of partial lung collapsed, needs inhaler to breathe. Second hand smoker in the past. Wanting Alph-1 antitrypsi n screening. Diabetes mellitus 582054 09 E11.40 Metformin messed his GI , Diarrhea. Dyslipidem ia due to type 2 diabetes mellitus 2364578471 02 E78.5 Disorder of skin 9550458 [address], refill the cream. [id number] SUMEET MCKEON MD [facility] [address] [place] [address] 11/22/2018 11:15:02 11/25/2018 11:43:00 Hernia of anterior abdominal wall 867001866 K43.9 58M morbidly obese with anterior abdominal wall hernia. The optimal surgery wound include bariatrics and hernia repair. The patient has multiple comorbidit ies including COPD, on home oxygen, CHF and DM. I will refer him to a tertiary facility that can manage this complicate d patient. Morbid obesity 173011169 E66.01 [id number] Vangie Tello MD [facility] (Adult Med) [address] [place] [address] 0 12/04/2018 11:42:11 12/04/2018 12:36:51 Nephropathy screening 541585417 Z13.89 Discussed with patient that his urine stik test is clean, but will send for culture as back up. Acute low back pain 2788 22283 M54.5 Discussed with patient, will try diclofenac ointment and PRN for ibuprofen. [id number] Michelle Goodman MD [facility] [address] [place] [address] 03/06/2019 10:38:24 03/06/2019 16:02:09 Obstructive sleep apnea syndrome 35048659 G47.33 Patient is not on treatment. AHI 24/hour, patient required BIPAp 18/8 with O2 4L/m into nasal mask. I will order Hypoxemia 567384712 R09. 02 Patient has 6MWT showed he needs O2 at 2L/M. Will order portable concentrat or. Patient is using O2 at home. I will check D dimer., homocystin e Periodic l imb movement disorder 477031815 G47.61 On gabapentin - will increase dose to 400mg X3 Dyspnea on exertion 6084 5006 R06.09 Multifacto rial Restrictiv e lung disease 77844117 J98.4 FEV1 36%, FVC 32%, FEV1/FVC 87%, [...] second hand smoking Moderate p ersistent asthma 484077440 J45.40 He uses Ventolin HFA but having significan t SOB., I will add incruse ellipta to his regimen Diabetic p eripheral neuropathy 647347272 E11.40 On Gabapentin History of exposure to second hand smoke 536210359 Z77.22 Patient has second hand smoking. Dizziness 165488915 R42 I will check DDimer and CTA of chest [id number] Vangie Tello MD [facility] (Adult Med) [address] [place] [address] 0 03/10/2019 16:51:00 03/10/2019 18:16:54 Dyspnea on exertion 20955981 R06.09 hypoxemia. oximetry is only 75%, he refuses to go to ER. 2018. Pulmonary CAT failed to show large vessel embolism. On aspirin. Generalize d abdominal pain 587742154 R10.84 Worse pain of abdomen, previous CAT of abdomen in october 2018 reported trans colon intrarpped but no bowel obstructio n. He refuses to go to ER.. [id number] MD [facility] (Adult Med) [address] [place] [address] 98379-107 0 04/10/2019 15:28:55 04/11/2019 12:28:48 Chronic low back pain 722157106 M54.5 He insists to have nephrology referral; Chronic di sease of skin 262144387 L98.9 He insists to see a dermatolog ist. Administra tion of influenza vaccine 73048066 Z23 He tolerated short well. [id number] MD [facility] (Adult Med) [address] [place] [address] 12044-093 0 05/06/2019 16:29:56 05/07/2019 10:17:38 Acute respiratory infections 604196773 J22 [id number] [facility] [address] [place] [address] 82824-436 0 06/25/2019 15:47:35 06/25/2019 17:14:35 Chronic low back pain 715421234 M54.5 He insists to have nephrology referral; but spinal vertebrae disorder, will proced CAT of lumbar spine. Hearing disorder 0140789 05 H91.90 Pt prefers to go to [facility], Cramping pain 192453306 R52 Discussed with patient. Diabetic p eripheral neuropathy 647103915 E11.40 Discussed with patient, wanting up grade dose gabapentin . Administra tion of influenza vaccine 88498635 Z23 He tolerated short well. [id number] MD Celeste Michaud (Adult Med) [address] [place] [address] 61180[address]940 0 07/16/2019 16:43:15 07/16/2019 17:46:11 Cellulitis 042898104 L03.90 Swelling gum. [id number] MD [facility] (Adult Med) [address] [place] [phone] 0 08/26/2019 11:47:39 08/26/2019 17:12:55 Upper respiratory infection 59040781 J06.9 [id number] [facility] [address] [place] [address] 08/28/2019 09:17:52 09/15/2019 13:49:10 Obstructive sleep apnea syndrome 76572515 G47.33 Patient is on treatment. AHI 24/hour, patient required BIPAp 18/8 with O2 4L/m into nasal mask. I will adjust his pressure to 20/10 with 4L/M of O2 Hypoxemia 015941854 R09. 02 Patient has 6MWT showed he needs O2 at 2L/M. Will order portable concentrat or. Patient is using O2 at home. I will check D dimer., homocystin e Periodic l imb movement disorder 656105666 G47.61 On gabapentin - will increase dose to 400mg X3 Dyspnea on exertion 6084 5006 R06.09 Multifacto rial Restrictiv e lung disease 76377037 J98.4 FEV1 36%, FVC 32%, FEV1/FVC 87%, [...] second hand smoking Moderate p ersistent asthma 595183613 J45.40 He uses Ventolin HFA but having significan t SOB., I will add incruse ellipta to his regimen Diabetic p eripheral neuropathy 633169606 E11.40 On Gabapentin History of exposure to second hand smoke 391878678 Z77.22 Patient has second hand smoking. Dizziness 644023477 R42 I will check DDimer and CTA of chest [id number] Vangie Tello MD [facility] (Adult Med) [address] [place] [address] 91326-140 0 10/06/2019 13:55:45 10/07/2019 14:16:55 Chronic congestive heart failure 40797386 I50.9 Under the care of his cardiologi st. Diabetes mellitus 157089 09 E11.40 Metformin, regular formula, messed his GI , Diarrhea. Diabetic p eripheral neuropathy 586028734 E11.40 Discussed with patient, wanting up grade dose gabapentin . Dyslipidem ia due to type 2 diabetes mellitus 1257702108 02 E78.5 On low saturated fat diet, Moderate p ersistent asthma 307886882 J45.40 Has been stabilized with medication s. Tinea corporis 50317390 B35.4 Well maintained with powder. Generalize d osteoarthritis 848696918 M15.9 Wanting to refill the medication s. [id number] Vangie Tello MD [facility] (Adult Med) [address] [place] [address] 21974-082 0 10/13/2019 09:37:54 10/14/2019 13:40:05 Hypokalemia 74986207 E87.6 Discussed with patient, will have blood potassium tested and refills of his potassium today. [id number] Vangie Tello MD [facility] (Adult Med) [address] [place] [address] 23983-374 0 10/06/2020 12:32:53 10/07/2020 15:31:55 Chronic congestive heart failure 14716829 I50.9 Under the care of his cardiologi st. Diabetes mellitus 820642 09 E11.40 Metformin, regular formula, messed his GI , Diarrhea. Chronic ob structive pulmonary disease 18959063 J44.9 History of partial lung collapsed, needs inhaler to breathe. Second hand smoker in the past. Wanting Alph-1 antitryp sin screening. [id number] Vangie Tello MD [facility] (Adult Med) [address] [place] [address] 43308-531 0 10/11/2020 09:44:00 10/12/2020 10:42:19 Chronic congestive heart failure 48721823 I50.9 Under the care of his cardiologi st. Diabetes mellitus 218057 09 E11.40 Metformin, regular formula, messed his GI , Diarrhea. Chronic ob structive pulmonary disease 75032830 J44.9 History of partial lung collapsed, needs inhaler to breathe. Second hand smoker in the past. Wanting Alph-1 antitryp sin screening. Diabetic p eripheral neuropathy 947375864 E11.40 Discussed with patient, wanting up grade dose gabapentin . Dyslipidem ia due to type 2 diabetes mellitus 4075678905 02 E78.5 On low saturated fat diet, [id number] Vangie Tello MD [facility] (Adult Med) [address] [place] [address] [phone] 0 11/03/2020 12:18:43 11/04/2020 11:30:52 Chronic kidney disease stage 2 591472531 N18.2 Will order U/S of kidney and CMP to [facility] [place] as [facility]. Chronic co ngestive heart failure 46549540 I50.9 Under the care of his cardiologi st. Diabetes mellitus 464798 09 E11.40 Metformin, regular formula, messed his GI , Diarrhea. Refilled glimepirid e 4 mg 2 pills bid, ordered yesterday. Diabetic p eripheral neuropathy 427520101 E11.40 Discussed with patient, wanting up grade dose gabapentin . [id number] Michelle Goodman MD [facility] [address] [place] [address] 11/04/2020 11:44:29 11/04/2020 13:54:33 Moderate persistent asthma 395377269 J45.40 He uses Ventolin HFA but having significan t SOB., I will continue incruse ellipta and add Symbicort 160/4.5, I will recheck PFTs Restrictiv e lung disease 68347675 J98.4 FEV1 36%, FVC 32%, FEV1/FVC 87%, [...] since there is a narrow neck. Hypoxemia 737627007 R09. 02 Patient has 6MWT showed he needs O2 at 2L/M. Will order portable concentrat or. Patient is using O2 at home. I will check D dimer., homocystin e, I will check 6MWT Obstructiv e sleep apnea syndrome 31112754 G47.33 Patient is on treatment. AHI 24/hour, patient required BIPAp 18/8 with O2 4L/m into nasal mask. I will adjust his pressure to 20/10 with 4L/M of O2. He's feling the pressure is not enough, I will increase to 22/11 and geta download Morbid obesity 107438052 E66.01 Advised about diet and exercise for weight reduction Tolerant non-smoker 8773 9003 Z87.891 Patient has second hand smoking Dyspnea on exertion 6084 5006 R06.09 Multifacto rial Diabetic p eripheral neuropathy 167388401 E11.40 On Gabapentin Periodic l imb movement disorder 848717650 G47.61 On gabapentin - will increase dose to 400mg X3 Dizziness 905576532 R42 DDimer was negative and CTA negative Non-smoker 's second hand smoke syndrome 127497828 J98.4 [id number] Michelle Goodman MD [facility] [address] [place] [address] 11/11/2020 09:41:14 11/12/2020 11:24:45 Chest wall pain 650724635 R07.89 Etiology is unclear, I will check CTA Moderate p ersistent asthma 305697092 J45.40 He uses Ventolin HFA but having significan t SOB., I will continue incruse ellipta and add Symbicort 160/4.5, I will recheck PFTs Tolerant non-smoker 8773 9003 Z87.891 Patient has second hand smoking Obstructiv e sleep apnea syndrome 63848205 G47.33 Patient is on treatment. AHI 24/hour, patient required BIPAp 18/8 with O2 4L/m into nasal mask. I will adjust his pressure to 20/10 with 4L/M of O2. He's feling the pressure is not enough, I will increase to 22/11 and get a download and give the patient supplies Restrictiv e lung disease 86106713 J98.4 FEV1 36%, FVC 32%, FEV1/FVC 87%, [...] there is a narrow neck. Morbid obesity 675046450 E66.01 Advised about diet and exercise for weight reduction Hypoxemia 833948757 R09. 02 Patient has 6MWT showed he needs O2 at 2L/M. Will order portable concentrat or. Patient is using O2 at home. I will check D dimer., homocystin e, I will check 6MWT Dyspnea on exertion 6084 5006 R06.09 Multifacto rial Diabetic p eripheral neuropathy 541785584 E11.40 On Gabapentin Periodic l imb movement disorder 747744021 G47.61 On gabapentin - will increase dose to 400mg X3 Dizziness 726753412 R42 DDimer was negative and CTA negative [id number] MD Celeste Michaud (Adult Med) [address] [place] [address] [phone] 0 06/03/2021 15:42:21 06/06/2021 13:11:47 Acute laryngitis 9943491 J04.0 Likes z pack. he said. Erectile dysfunction 860 904218 F52.21 Wants to try viagra. Advised him to consult his cardiologi st as well. He agreed. Pityriasis versicolor 56 910919 B36.0 Will try topical cream and dermatolog y referral. [id number] Vangie Tello MD [facility] (Adult Med) [address] [place] [address]70[address]234 0 07/07/2021 11:40:36 07/25/2021 12:36:26 Chronic congestive heart failure 96162866 I50.9 Under the care of his cardiologi st. Diabetes mellitus 353180 09 E11.40 Metformin, regular formula, messed his GI , Diarrhea. Refilled glimepirid e 4 mg 2 pills bid, ordered yesterday. Dyslipidem ia due to type 2 diabetes mellitus 4295691308 02 E78.5 On low saturated fat diet, Erectile dysfunction 860 477399 F52.21 Wants to try viagra. Advised him to consult his cardiologi st as well. He agreed., he siad his cardiologi st agreed, now he wants up dose. Pityriasis versicolor 56 902152 B36.0 Will try topical cream and dermatolog y referral. ! % terbinafin e not working he said , he used to try kanolotion Diabetic p eripheral neuropathy 995262574 E11.40 Discussed with patient, wanting up grade dose gabapentin . Type 2 janusz betes mellitus 89920741 E11.40 He can not tolerate the metformin which cause his stomach to be uncomforta ble, diarrhea and cramping. Chronic ob structive pulmonary disease 05661661 J44.9 History of partial lung collapsed, needs inhaler to breathe. Second hand smoker in the past. Wanting Alph-1 antitryp sin screening. Generalize d osteoarthritis 978553346 M15.9 Wanting to refill the medication s. Acid reflux 028342651 K2 1.9 Stable. Screening for malignant neoplasm of colon 520246627 Z12.11 He wants stool test. [id number] Vangie Telol MD [facility] (Adult Med) [address] [place] [address] 37714-493 0 08/05/2021 12:24:37 08/08/2021 09:17:47 Secondary erectile dysfunction 741586298 N52.39 He wants change viagra from 10/month 100 mg to 50 mg with 20 pills/georges h. Chronic co ngestive heart failure 41928388 I50.9 Under the care of his cardiologi st. Diabetes mellitus 545672 09 E11.40 Metformin, regular formula, messed his GI , Diarrhea. Refilled glimepirid e 4 mg 2 pills bid, ordered yesterday. Acid reflux 208518797 K2 1.9 Stable. Chronic ob structive pulmonary disease 04148250 J44.9 History of partial lung collapsed, needs inhaler to breathe. Second hand smoker in the past. Wanting Alph-1 antitryp sin screening. He agreed to D/C symbicort which has steroid . 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 Diabetic p eripheral neuropathy 350912037 E11.40 Discussed with patient, wanting up grade dose gabapentin . Type 2 janusz betes mellitus 38011231 E11.40 He can not tolerate the metformin which cause his stomach to be uncomforta ble, diarrhea and cramping. Dyslipidem ia due to type 2 diabetes mellitus 7585660865 02 E78.5 On low saturated fat diet, Generalize d osteoarthritis 587816265 M15.9 Wanting to refill the medication s. [id number] Vangie Tello MD [facility] (Adult Med) [address] [place] [address] 08/31/2021 12:02:59 09/01/2021 12:34:40 Chronic congestive heart failure 46600180 I50.9 Under the care of his cardiologi st., On qxbqho7zql e, needs potassium supplement . Tinea corporis 32123753 B35.4 Well maintained with powder. Erectile dysfunction 860 103283 F52.21 Wants to try viagra. Advised him to consult his cardiologi st as well. He agreed., he siad his cardiologi st agreed, now he wants up dose. Secondary erectile dysfunction 559167493 N52.39 He wants change viagra from 10/month 100 mg to 50 mg with 20 pills/georges h. Diabetes mellitus 195743 09 E11.40 Metformin, regular formula, messed his GI , Diarrhea. Refilled glimepirid e 4 mg 2 pills bid, ordered yesterday. Acid reflux 037095188 K2 1.9 Stable. Chronic ob structive pulmonary disease 99700890 J44.9 History of partial lung collapsed, needs inhaler to breathe. Second hand smoker in the past. Wanting Alph-1 antitryp sin screening. He agreed to D/C symbicort which has steroid . 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 Diabetic p eripheral neuropathy 597944314 E11.40 Discussed with patient, wanting up grade dose gabapentin . Type 2 janusz betes mellitus 66245355 E11.40 He can not tolerate the metformin which cause his stomach to be uncomforta ble, diarrhea and cramping. Dyslipidem ia due to type 2 diabetes mellitus 7445184320 02 E78.5 On low saturated fat diet, Generalize d osteoarthritis 315237848 M15.9 Wanting to refill the medication s. Pityriasis versicolor 56 134211 B36.0 Will try topical cream and dermatolog y referral. ! % terbinafin e not working he said , he used to try kanolotion , Still waiting the appointmen t of dermatolog y at [facility], he wants to find sooner and close dermatolog ist instead, advised to check with his insurance the lists of dermatolog ist in the [facility] work, then will try to refer, he agreed. 08-31-2021 . [id number] MD Celeste Michaud (Adult Med) [address] [place] [address] 10/07/2021 12:33:21 10/11/2021 07:41:46 Erectile dysfunction 666725347 F52.21 Wants to try viagra. Advised him to consult his cardiologi st as well. He agreed., he siad his cardiologi st agreed, now he wants up dose. Infection of skin and/or subcutaneous tissue 34463106 L08.9 He wants cream and bactrim for his skin over count of bacteria since his young. Chronic co ngestive heart failure 99200970 I50.9 Under the care of his cardiologi st., On [id number] e, needs potassium supplement . Diabetes mellitus 126070 09 E11.40 Metformin, regular formula, messed his GI , Diarrhea. Refilled glimepirid e 4 mg 2 pills bid, ordered yesterday. Chronic ob structive pulmonary disease 55348927 J44.9 History of partial lung collapsed, needs inhaler to breathe. Second hand smoker in the past. Wanting Alph-1 antitryp sin screening. He agreed to D/C symbicort which has steroid . 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 Generalize d osteoarthritis 156357016 M15.9 Wanting to refill the medication s. Acid reflux 023656828 K2 1.9 Stable. Diabetic p eripheral neuropathy 873094765 E11.40 Discussed with patient, wanting up grade dose gabapentin . Dyslipidem ia due to type 2 diabetes mellitus 2347760383 02 E78.5 On low saturated fat diet, [id number] JALEN ABARCA (Peds) [address] [place] [address] 01/16/2022 15:33:00 01/17/2022 12:11:00 Administration of SARS-CoV-2 mRNA vaccine [id number] Z23 [id number] MD Celeste Michaud (Adult Med) [address] [place] [phone] 01/16/2022 16:03:23 01/19/2022 10:53:06 Screening for malignant neoplasm of prostate 637109874 Z12.5 He agreed. Screening for malignant neoplasm of colon 130575700 Z12.11 He wants stool test. He has not turned in the test yet he said, Type 2 janusz betes mellitus 09025010 E11.40 He can not tolerate the metformin which cause his stomach to be uncomforta ble, diarrhea and cramping. HIV screening 861121320 Z11.4 He agreed to be tested. Cramping pain 343861298 R52 Discussed with patient. On diuretic , might have low magnesium , will check. Exposure t o Hepatitis B virus 470725920 Z20.5 Will check the hepatitis B. Secondary erectile dysfunction 405963215 N52.39 He wants change viagra from 10/month 100 mg to 50 mg with 20 pills/georges h. Obesity 586616459 E66.9 Advised to watch his diabetic diet, exercise and lose some weight, 12-27-2021. [id number] Vangie Tello MD [facility] (Adult Med) [address] [place] [phone] 06/21/2022 15:38:22 06/22/2022 15:47:33 Thoracic back pain 525471478 M54.6 He wants chiropract or referral. He will see his cardiologi st on the end of this month. Wants some tylenol with codeine or hydrocodon . Eruption 370135067 R21 Skin keeps break out, cream not helping. wants dermatolog y referral. Diabetes mellitus 513876 09 E11.40 Metformin, regular formula, messed his GI , Diarrhea. Refilled glimepirid e 4 mg 2 pills bid, ordered yesterday. Screening for malignant neoplasm of colon 321903352 Z12.11 He wants stool test. He has not turned in the test yet he said, it , will reorder. Erectile dysfunction 860 569363 F52.21 Wants to try viagra. Advised him to consult his cardiologi st as well. He agreed., he siad his cardiologi st agreed, now he wants up dose. Dyslipidem ia due to type 2 diabetes mellitus 6196415099 02 E78.5 On low saturated fat diet, Congestive heart failure 45996574 I50.9 Under the care of his cardiologi st. [id number] [facility] [address] [place] [address] 02/07/2023 17:11:12 02/09/2023 15:31:07 Type 2 diabetes mellitus 86568185 E11.40 He can not tolerate the metformin which cause his stomach to be uncomforta ble, diarrhea and cramping. Went thru med lists. needs potassium and magnesium, and up grate dose of pioglitazo ne . Chronic co ngestive heart failure 83825303 I50.9 Under the care of his cardiologi st., On criidb4uus e, needs potassium supplement . Diabetic p eripheral neuropathy 879566364 E11.40 Discussed with patient, wanting up grade dose gabapentin . Eruption 066421044 R21 Skin keeps break out, cream not helping. wants dermatolog y referral. Diabetes mellitus 284980 09 E11.40 Metformin, regular formula, messed his GI , Diarrhea. Refilled glimepirid e 4 mg 2 pills bid, ordered yesterday. Wants increase dose of pioglitazo ne. Screening for malignant neoplasm of colon 645028054 Z12.11 He wants stool test. He has not turned in the test yet he said, it , will reorder. He had it sitting his home for months. Re instructed to proceed the test. he said that he will do it. today [id number]. Erectile dysfunction 860 205980 F52.21 Wants to try viagra. Advised him to consult his cardiologi st as well. He agreed., he siad his cardiologi st agreed, now he wants up dose. Dyslipidem ia due to type 2 diabetes mellitus 4230827447 02 E78.5 On low saturated fat diet, Congestive heart failure 75850252 I50.9 Under the care of his cardiologi st. Acid reflux 115768615 K2 1.9 Stable. Chronic ob structive pulmonary disease 06787047 J44.9 History of partial lung collapsed, needs inhaler to breathe. Second hand smoker in the past. Wanting Alph-1 antitryp sin screening. He agreed to D/C symbicort which has steroid . 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 Cramping pain 837556876 R52 Discussed with patient. On diuretic , might have low magnesium , will check. Infection of skin and/or subcutaneous tissue 52691441 L08.9 He wants cream and bactrim for his skin over count of bacteria since his young. Allergic r eaction to bee sting 285710914 T63.444A Will refill epinephrin e injection. Chronic th oracic back pain 8763018404 12256 M54.6 Med refills. Obesity 007247537 E66.9 Advised to watch his diabetic diet, exercise and lose some weight, 12-27-2021. BMI is 38.7 as 02-07-23. [id number] Vangie Tello MD [facility] (Adult Med) [address] [place] [phone] 04/11/2023 16:11:30 04/12/2023 15:46:47 Administration of influenza vaccine 15784812 Z23 He tolerated short well. Acute resp iratory infections 148152638 J22 congested sinus and throat. wants z pk Impacted c erumen in right ear 1159980094 246723 H61.21 Wants [facility] to clean it. Hernia of anterior abdominal wall 380383125 K43.9 Discussed with patient, agreed for the CAT scan. Has claustroph obia, will give one ativan prior to CAT scan.He wants [facility] care of . Diabetes mellitus 371821 09 E11.40 Metformin, regular formula, messed his GI , Diarrhea. Refilled glimepirid e 4 mg 2 pills bid, ordered yesterday. Wants increase dose of pioglitazo ne. Chronic co ngestive heart failure 22816683 I50.9 Under the care of his cardiologi st., On [id number] e, needs potassium supplement . Dyslipidem ia due to type 2 diabetes mellitus 2112892770 02 E78.5 On low saturated fat diet, Erectile dysfunction 860 184973 F52.21 Wants to try viagra. Advised him to consult his cardiologi st as well. He agreed., he siad his cardiologi st agreed, now he wants up dose. Cramping pain 300966638 R52 Discussed with patient. On diuretic , might have low magnesium , will check. Chronic th oracic back pain 1966883026 16074 M54.6 Med refills. Diabetic p eripheral neuropathy 527581155 E11.40 Discussed with patient, wanting up grade dose gabapentin . Chronic ob structive pulmonary disease 11194129 J44.9 History of partial lung collapsed, needs inhaler to breathe. Second hand smoker in the past. Wanting Alph-1 antitryp sin screening. He agreed to D/C symbicort which has steroid . 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 [id number] Vangie Tello MD [facility] (Adult Med) [address] [place] [address] 07/25/2023 16:36:06 07/30/2023 11:15:49 Chronic atrial fibrillation 024290576 I48.20 Will go to [facility] for new cardiologi st. Diabetes mellitus 268480 09 E11.40 Metformin, regular formula, messed his GI , Diarrhea. Refilled glimepirid e 4 mg 2 pills bid, ordered yesterday. Wants increase dose of pioglitazo ne. Chronic co ngestive heart failure 45542831 I50.9 Under the care of his cardiologi st., On pjmzgx6cxb e, needs potassium supplement . Chronic ob structive pulmonary disease 38058927 J44.9 History of partial lung collapsed, needs inhaler to breathe. Second hand smoker in the past. Wanting Alph-1 antitryp sin screening. He agreed to D/C symbicort which has steroid . 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 Acid reflux 207978313 K2 1.9 Stable. Diabetic p eripheral neuropathy 522051190 E11.40 Discussed with patient, wanting up grade dose gabapentin . Cramping pain 419573634 R52 Discussed with patient. On diuretic , might have low magnesium , will check. Dyslipidem ia due to type 2 diabetes mellitus 8251388772 02 E78.5 On low saturated fat diet, Erectile dysfunction 860 407208 F52.21 Wants to try viagra. Advised him to consult his cardiologi st as well. He agreed., he siad his cardiologi st agreed, now he wants up dose. Hernia of anterior abdominal wall 499928947 K43.9 Discussed with patient, agreed for the CAT scan. Has claustroph obia, will give one ativan prior to CAT scan.He wants [facility] to take care of . [id number] Michelle Goodman MD [facility] [address] [place] [phone] 07/26/2023 11:19:15 07/26/2023 14:34:35 Moderate persistent asthma 701435602 J45.40 He uses Ventolin HFA but having significan t SOB., I will continue incruse ellipta and add Symbicort 160/4.5, I will recheck PFTs, he has been having trou ble with shortne s s o f b r e a t h . Tolerant non-smoker 8773 9003 Z87.891 Patient has second hand smoking Obstructiv e sleep apnea syndrome 36666181 G47.33 Patient is on treatment. AHI 24/hour, patient required BIPAp 18/8 with O2 4L/m into nasal mask. I will adjust his pressure to 20/10 with 4L/M of O2. He's feeling the pressure is not enough, I will get download of his CPAP. Restrictiv e lung disease 86130764 J98.4 FEV1 36%, FVC 32%, FEV1/FVC 87%, [...] there is a narrow neck. Morbid obesity 602838169 E66.01 Advised about diet and exercise for weight reduction Hypoxemia 751534068 R09. 02 Patient has 6MWT showed he needs O2 at 2L/M. Will order portable concentrat or. Patient is using O2 at home. 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 On gabapentin - will increase dose to 400mg X3 Dizziness 355742975 R42 DDimer was negative and CTA negative Health Concerns Section Related Observation LastModified by Organization Detai ls LastModified Time None Recorded Concern Status LastModified by Organization Details LastModified Time None Recorded Advance Directives Directive N: Payers Insurance Date Sequence Insurance Name Policy Number Policy Leon Covered Member ID Leon Member ID Guarantor Name 09/22/2023 1 [facility] - DOS ON OR AFTER 20 (MEDICAID REPLACEMENT - HMO) Mann Kei [id number] Mann Choudhury 07/25/2023 1 [facility] - [facility] PRIOR TO 11/25/2020 (MEDICAID REPLACEMENT - HMO) Mann Kei [id number] Mann Kei Notes Date Note Type Note Provider Name and Address Organization Details Recorded Time 06/21/2022 text/html ROS as noted in the HPI Office visit,Allergic to glimepiride. History of type 2 DM, CHF, dyslipidemia skin eruption, upper back pain , and ED. Wants to refill med and referrals. Vangie Tello MD Attn: Accounting,[address] [place], [address], [facility] 06/21/2022 16:52:16 02/07/2023 text/html ROS as noted in the HPI Office visit, allergic to glimepiride, check up and blood tests and med refills. Vangie Tello MD Attn: Accounting,[address] [place], [address], [facility] 02/07/2023 18:24:23 04/11/2023 text/html ROS as noted in the HPI Office visit, allergic to glimepiride. Check up med refills. C/C1. respiratory track infection, 2. Right ear wax impacted. 3. Abdominal wall hernia getting bigger. No chest pain, some congestion of sinus, throat, want z PK. No fever, no other complaints, ROS as noted in HPI. Vangie Tello MD Attn: Accounting,[address] [facility], [place], [address], [facility] 04/11/2023 17:31:19 07/25/2023 text/html ROS as noted in the HPI Office visit. allergic to glimepiride. history of type 2 DM, CHF, diabetic neuropathy, on oxygen , Check up and med refills. if any. No chest pain, no fever, no shortness of breath, regular appetite and Bowel habit. ROS as noted in HPI. Vangie Tello MD Attn: Accounting,[address] [place], [address], [facility] 07/25/2023 17:42:22 07/26/2023 text/html ROS as noted in the HPI Patient is here for follow-up. He relates to me that his BiPAP machine is not giving him enough pressure. He has been having more shortness of breath. He has been having right shoulder pain and neck pain. He has not been in the office since October of 2020 Michelle Goodman MD [address] [place], [address], [place] [facility] 07/26/2023 12:13:57
--- OUTSIDE RECORDS SUMMARY | 2025-04-02 18:23 | XMS_ITS | Data Portability ---
Author Organization [facility] OFFICE Address [address] [place] [address] Care Team Providers Care Agribusiness Professor Name Role Phone JOAN TELLO Primary Care Provider Assessment Encounter Date Assessment Date Assessment LastModified [...] 50 mg tablet,e xtended release 2022 023 [place] [facility] #[id number], [address], [place], [id number], 3 18:23:15 Xarelto 20 mg tablet 2020 021 [place] [facility] #99133, [address], [place], [id number], 1 13:03:44 furosemi de 40 mg tablet 2019 020 [facility], [address], [place], [id number], 0 15:47:14 aspirin 325 mg tablet 2019 020 [facility] #20304, [address], [place], [id number], 3 16:34:26 Cardizem CD 240 mg capsule, extended release 2019 INTERFACE [facility] #73150, [address], [place], [id number], 0 15:47:17 carvedil ol 6.25 mg tablet 2019 [facility] #40233, [address], [place], [id number], 3 16:34:23 Digox 250 mcg (0.25 mg) tablet 2019 INTERFACE [facility] #26943, [address], [place], [id number], 0 15:47:14 simvasta tin 40 mg tablet 2019 INTERFACE [facility] #40838, [address], [place], [id number], 0 15:47:14 aspirin 325 mg tablet 2019 [facility] #21682, [address], [place], [id number], 3 16:34:26 carvedil ol 6.25 mg tablet 2019 020 [facility] #89993, [address], [place], [id number], 3 16:34:23 Digox 250 mcg (0.25 mg) tablet 2019 [facility], [address], [place], [id number], 0 12:27:53 Cardizem CD 240 mg capsule, extended release 2019 020 INTERFACE [facility] #83360, [address], [place], [id number], 0 12:27:51 simvasta tin 40 mg tablet 2019 020 INTERFACE [facility] #84095, [address], [place], [id number], 0 12:27:51 furosemi de 40 mg tablet 2019 020 INTERFACE [facility] #87260, [address], [place], [id number], 0 12:27:53 potassiu m chloride ER 10 mEq tablet,e xtended release 2019 020 INTERFACE [facility] #07929, [address], [place], [id number], 0 12:27:54 Patient TargetsNo targets recorded. Patient Instructions Encounter Date Encounter Id Patient Instructions Last Modified By Organization Details Last Modified Time 07/15/2019 [id number] Exercise advised. Low cholesterol diet advised. Low sodium diet advised. [email or web address] Not available 07/15/2019 12:12:37 Scribed by Tram [email or web address] Not available 07/15/2019 12:12:29 08/27/2019 [id number] Weight loss 20 pounds Exercise advised Low cholesterol diet advised Low sodium diet advised. [email or web address] Not available 08/27/2019 14:20:19 This document was scribed by DENY Brenneralli Not available 08/27/2019 14:20:26 09/21/2022 [id number] Weight loss 20 pounds Exercise advised Low [...] XR, chest No observ ation record ed. [email or web address] Not Available 08/11 09:23:54 08/12/19 20 08/04/2019 elect rocar diogr am No observ ation record ed. [email or web address] Not Available 08/11 09:58:39 08/27/1908/04/2019 elect rocar diogr am No observ ation record ed. [email or web address] Not Available 2019 15:43:19 08/27/19 20 08/04/2019 XR, chest , 1 view No observ ation record ed. [email or web address] Not Available 08/26 16:18:28 11/26/19 21 11/19/2020 elect rocar diogr am No observ ation record ed. Not Available 11/25 11:32:25 07/10/19 23 06/27/2022 [facility] rocar diogr am No observ ation record ed. [email or web address] Not Available 2022 10:48:57 09/30/19 23 09/18/2022 , echoc ardio gram No observ ation record ed. [email or web address] Not Available 2022 12:46:06 Result Notes None recorded. Problems Name Problem SNOMED Code Status Onset Date Resolution Date Notes Provider Name and Address Organization Details Recorded Time Palpitations 58334926 Active 2015 Not Available [facility] 4 15:52:41 Paroxysmal atrial fibrillation 391378483 Active 2015 Not Available [facility] 4 15:52:41 Obstructive sleep apnea syndrome 06654783 Active 2015 not on CPAP ( only O2 at night) Not Available [facility] 4 15:52:41 Diabetes mellitus 16228975 Active 2015 Not Available [facility] 4 15:52:41 Congestive heart failure 78533582 Active 2015 Not Available [facility] 4 15:52:41 Hypersomnia 36860490 Active 2015 Not Available [facility] 4 15:52:41 Chronic obstructive pulmonary disease 69638131 Active 2015 Not Available [facility] 4 15:52:40 Asthma 540311600 Active 2015 Not Available [facility] 4 15:52:41 Gastroesophag eal reflux disease 331125952 Active 2015 Not Available [facility] 4 15:52:41 Morbid obesity 295745634 Active 2015 Not Available [facility] 4 15:52:41 History of obesity 711871490 Active 2016 Not Available [facility] 4 15:52:40 Edema 460482752 Active 2016 Not Available [facility] 4 15:52:41 Cardiac arrhythmia 217875413 Active 2016 Not Available [facility] 4 15:52:41 Acute anoxic encephalopath y 65281893 Active 2016 Not Available [facility] 4 15:52:41 Acute hypercapnic respiratory failure 133265312 Active 2016 Not Available [facility] 4 15:52:41 Community acquired pneumonia 305252277 Active 2016 Not Available [facility] 4 15:52:41 Benign essential hypertension 8587665 Active 2017 Not Available [facility] 4 15:52:40 Dyslipidemia 035765651 Active 2018 Not Available [facility] 4 15:52:41 Dyspnea on exertion 08900425 Active 2018 Not Available [facility] 4 15:52:41 Notes:Fracture of right hand ( secondary to lose of consciousnes ) (10/07) Problem Notes None recorded. Procedures Surgical History Date Name Laterality Status Provider Name and Address Organization Details Recorded Time Tonsillectomy/Alexia noidectomy completed [facility] 10/18/2015 15:27:[address] [facility] 10/18/2015 15:27:49 Orthopedic Surgery completed [facility] 10/18/2015 15:27:59 Imaging Results None recorded. Procedure Notes None recorded. Medical Equipment None Reported. Allergies Allergen ID Allergen Name Allergen Category Reaction Reaction Severity Criticality Documentation Date Start Date Code Code System Note Provider Name and Address Organization Details Recorded Time 3988 lidocaine medicatio n facial swelling severe Not available 09/11/2016 [address] [facility] [facility] 7 16:58:29 Medications Name Sig Start Date [...] Not Available glimepiri de 1 mg tablet 06/25 /2021 completed Not Available Not Available Not Available [...] t Available ibuprofen 600 mg tablet PRN 06/25 /2021 completed Not Available Not Available Not Available [...] Updated DateTime 3 182.88 cm 40 kg/m2 316222. 47 g 94 % 94 % 81 /min 104/72 mm[Hg] JAYLA PRASAD [facility] 3 17:49:45 Date Recorded Body height Body mass index (BMI) Body weight Heart rate Oxygen saturation Oxygen saturation in Arterial blood by Pulse oximetry Systolic And Diastolic Provider Name and Address Organization Details Last Updated DateTime 0 182.88 cm 44.8 kg/m2 855562. 48 g 70 /min 90 % 90 % 130/90 mm[Hg] SIN RYDER [facility] 0 11:57:43 Date Recorded Body height Heart rate Oxygen saturation Oxygen saturation in Arterial blood by Pulse oximetry Systolic And Diastolic Provider Name and Address Organization Details Last Updated DateTime 0 182.88 cm 100 /min 90 % 90 % 126/86 mm[Hg] My Perera [facility] 0 14:05:28 Date Recorded Body height Body mass index (BMI) Body weight Heart rate Respiratory rate Oxygen saturation Oxygen saturation in Arterial blood by Pulse oximetry Systolic And Diastolic Provider Name and Address Organization Details Last Updated DateTime 3 182.88 cm 38.4 kg/m2 884013. 64 g 77 /min 16 /min 98 % 98 % 122/84 mm[Hg] Augie Salgado [facility] 3 16:01:01 Date Recorded Body weight Oxygen saturation Oxygen saturation in Arterial blood by Pulse oximetry Heart rate Systolic And Diastolic Provider Name and Address Organization Details Last Updated DateTime 1 507985. 63 g 94 % 94 % 110 /min 122/67 mm[Hg] SANTO PROCTOR [facility] 1 12:33:20 Social History Question Answer Notes LastModified by Organizat ion Details LastModified Time Tobacco Smoking Status Former Smoker Debra stern [facility] 10/18/2015 15:34:26 Which Illicit Or Recreational Drugs Have You Used? None Information not available 08/09/2019 What Was The Date Of Your Most Recent Tobacco Screening? 06/17/2018 Information not available 12/19/2018 Sex: Unknown Functional Status Question Answer Note LastModified by Organizat ion Details LastModified Time Do you or have you ever used smokeless tobacco? 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 Never used electronic cigarettes Information not available 07/12/2019 Mental Status None recorded. Family History Relationship [...] ICD10 Code Diagnosis IMO Codes Diagnosis Note [id number] Arsenio Amaya MD [place] OFFICE [address] [place] [address] 03/13/2016 16:20:46 03/14/2016 10:31:22 Benign essential hypertension 3626566 I10 with fair control Paroxysmal atrial fibrillation 196044122 I48.0 Now in NSR. On Full dose ASA Obstructiv e sleep apnea syndrome 02018152 G47.33 Will need Cpap [id number] Arsenio Amaya MD [place] OFFICE [address] [place] [address] 09/11/2016 15:55:04 09/12/2016 09:58:35 Chronic obstructive pulmonary disease 60153290 J44.9 Benign ess ential hypertension 3911932 I10 with fair control Paroxysmal atrial fibrillation 214946913 I48.0 Now in NSR. On Full dose ASA Obstructiv e sleep apnea syndrome 44960301 G47.33 Will need Cpap Hypertensive disorder 38 867418 I10 Congestive heart failure 22164950 I50.9 Palpitations 39277767 R0 0.2 [id number] MD Tahira Schaeffer Office [address] [place] [address] 06/17/2018 12:11:07 06/17/2018 13:51:43 Paroxysmal atrial fibrillation 417812703 I48.0 A-fib today wth RVR at 103 bpm.Will anticoagul ate with Eliquis. Continue Coreg and Cardizem. Has normal LV systolic function. He needs to be on Coumadin, but he had bleeding from that. Obstructiv e sleep apnea syndrome 57292168 G47.33 Will need Cpap. F/u with Dr. Goodman. Needs repeat sleep study. Chronic ob structive pulmonary disease 76623971 J44.[address] Goodman. Benign ess ential hypertension 5021810 I10 with fair control. Continue current regimen. Needs medication compliance . Diabetes mellitus 138061 09 E11.9 Borderline . Treatment and evaluation by primary care doctor. Discussed importance of adequate glycemic control to minimize cardiovasc ular disease progressio n. A1C goal of < 7% for type 2 DM Dyslipidemia 964443052 E 78.5 Needs to keep LDL less than 70, and HDL more than 40 Will get lipid profile results from PCP Congestive heart failure 34613260 I50.9 HF-pEFHad ECHO 05/13/18 showing normal LV size and functionCo ntinue lasix with daily compliance . Dyspnea on exertion 6084 5006 R06.09 Multifacto rial. Could be angina equivalent . Will obtain Lexiscan Myoview Stress Test to look for any ischemia. Patient cannot walk. Has a high Newell Risk score. Has Known CAD and/or CAD risk equivalent . Continue maximal [place] [id number] MD Tahira Schaeffer Office [address] [place] [address] 07/17/2018 15:25:46 07/17/2018 16:24:37 Dyspnea on exertion 10734020 R06.09 Multifacto rial. Could be angina equivalent . Will obtain Lexiscan Myoview Stress Test to look for any ischemia. Patient cannot walk. Has a high Newell Risk score. Has Known CAD and/or CAD risk equivalent . Continue maximal medical treatment and risk factor modificati on Chronic ob structive pulmonary disease 03649192 J44.[address] Goodman. Paroxysmal atrial fibrillation 186769152 I48.0 A-fib today. HR is well controlled on Cardizem. Continue full-dose ASA. Hyperlipidemia 97254598 E78.5 Benign ess ential hypertension 2764443 I10 with fair control. Continue current regimen. Needs medication compliance . Dyslipidemia 541229644 E 78.5 Needs to keep LDL less than 70, and HDL more than 40 Will get lipid profile results from PCP Diabetes mellitus 225955 09 E11.9 Borderline . Treatment and evaluation by primary care doctor. Discussed importance of adequate glycemic control to minimize cardiovasc ular disease progressio n. A1C goal of < 7% for type 2 DM Obstructiv e sleep apnea syndrome 18396901 G47.33 Will need Cpap. F/u with Dr. Goodman. Needs repeat sleep study. Chronic di astolic heart failure 401465370 I50.32 Had echo 05/13/18 ECHO: E/E prime ratio is 8-15 which is in the indetermin ate zone. Left ventricula r systolic function appears to be normal. No obvious regional wall motion abnormalit ies noted. The study was technicall y difficult. Congestive heart failure 04599780 I50.9 [id number] Arsenio Amaya MD [place] OFF[facility] [address] [place] [address] 01/21/2019 14:37:56 05/14/2019 11:21:11 Congestive heart failure 33388161 I50.9 Euvolemic. Low salt diet. Hyperlipidemia 74419775 E78.5 Needs to keep LDL less than 70, and HDL more than 40 Will get fasting lipids for follow up04/2017 TC 151, HDL 33, TR 101, LDL 98 Essential hypertension 20060019 I10 Controlled . Paroxysmal atrial fibrillation 001503655 I48.0 A-fib today. HR is well controlled on Cardizem. Continue full-dose ASA. Dizziness 298519649 R42 Likely due to AFIB. Dyspnea on exertion 6084 5006 R06.09 Multifacto rial. Could be angina equivalent .Dobutamin e Myoview stress test, pt can not walk. Has known coronary artery disease, with atypical symptoms now. Rest imaging was done 07/2018. WIll do stress imaging only.Terrance nue [place] [id number] Arsenio Amaya MD [place] [facility] [address] [place] [address] 07/15/2019 11:01:00 08/04/2019 18:30:17 Dyspnea on exertion 22292947 R06.09 Multifacto rial. Could be angina equivalent .03/12/19 Negative Dobutamine stress test for ischemia. Normal LV systolic function. LVEF 61 %Rest imaging was done 07/2018. WIll do stress imaging only.Terrance nurodolfo maximal medical treatment and risk factor modificati on Congestive heart failure 12856072 I50.9 Euvolemic. Low salt diet. Hyperlipidemia 63068397 E78.5 Needs to keep LDL less than 70, and HDL more than 40 Will get fasting lipids for follow up04/2017 TC 151, HDL 33, TR 101, LDL 98 Essential hypertension 70991362 I10 Controlled . Paroxysmal atrial fibrillation 373334506 I48.0 A-fib today. HR is well controlled on Cardizem. Continue full-dose ASA.pt. states that he is currently taking ASA 325 mg BID. consider albation if symptoms persist Dizziness 168049630 R42 Likely due to AFIB. [id number] Arsenio Amaya MD [facility] [address] [place] [address] 08/27/2019 13:42:23 08/27/2019 14:45:48 Dyspnea on exertion 59015895 R06.09 Stable. 03/12/19 DOBUTAMINE : Negative Dobutamine Stress test for ischemia. Normal LV systolic function. LVEF 61% Hyperlipidemia 58262768 E78.5 Needs to keep LDL less than 70, and HDL more than 40 Will get fasting lipids for follow up04/2017 TC 151, HDL 33, TR 101, LDL 98 Essential hypertension 19104148 I10 Controlled . Paroxysmal atrial fibrillation 653847228 I48.0 Recent admission with bradycardi a. Now he is back on Cardizem, Digoxin and Coreg. CHADSVASC score 3. Consider starting AC. Currently on full dose ASA Obstructiv e sleep apnea syndrome 80861653 G47.33 On BIPAP. Edema of l ower extremity 965467133 R60.0 stable. Continue lasix, leg elevation, low salt diet. [id number] Arsenio Amaya MD [place] [facility] [address] [place] [address] 11/19/2020 12:24:06 11/19/2020 13:03:45 Paroxysmal atrial fibrillation 641529612 I48.0 Recent admission with bradycardi a. Now he is back on Cardizem, Digoxin and Coreg. CHADSVASC score 3.Stop ASAStart Xarelto Dyspnea on exertion 6084 5006 R06.09 Stable. Obtain echo to evaluate for structural /functiona l disease. 03/12/19 DOBUTAMINE : Negative Dobutamine Stress test for ischemia. Normal LV systolic function. LVEF 61% Hyperlipidemia 69874278 E78.5 Needs to keep LDL less than 70, and HDL more than 40 Will get fasting lipids for follow up04/2017 TC 151, HDL 33, TR 101, LDL 98 Essential hypertension 48230206 I10 Controlled . Obstructiv e sleep apnea syndrome 55872617 G47.33 On BIPAP. Edema of l ower extremity 247259026 R60.0 stable. Continue lasix, leg elevation, low salt diet. [id number] Arsenio Amaya MD [place] [facility] [address] [place] [address] 06/27/2022 17:20:25 06/27/2022 18:24:45 Paroxysmal atrial fibrillation 736165530 I48.0 Recent admission with bradycardi a. Now [...] Normal LV systolic function. LVEF 61% Hyperlipidemia 01202156 E78.5 Needs to keep LDL less than 70, and HDL more than 40 Will get fasting lipids for follow up04/2017 TC 151, HDL 33, TR 101, LDL 98 Essential hypertension 02840395 I10 Controlled . Obstructiv e sleep apnea syndrome 60624906 G47.33 On BIPAP. Edema of l ower extremity 776213552 R60.0 increased to twice daily lasix 40 mg for one week then go back to 40 mg daily, leg elevation, low salt diet. [id number] Arsenio Amaya MD [place] [facility] [address] [place] [address] 09/21/2022 15:55:44 09/21/2022 16:40:03 Paroxysmal atrial fibrillation 094674840 I48.0 Recent admission with bradycardi a. Now he is back on Cardizem, Digoxin and Coreg. CHADSVASC score 3. On Toprol xl 50 mg Dyspnea on exertion 6084 5006 R06.09 Normal Left ventricula r systolic function 03/12/19 DOBUTAMINE : Negative Dobutamine Stress test for ischemia. Normal LV systolic function. LVEF 61% Hyperlipidemia 67186382 E78.5 Needs to keep LDL less than 70, and HDL more than 40 Will get fasting lipids for follow up04/2017 TC 151, HDL 33, TR 101, LDL 98 Essential hypertension 55736566 I10 Controlled . Obstructiv e sleep apnea syndrome 21893926 G47.33 On BIPAP. Edema of l ower extremity 338416575 R60.0 On Lasix 40 mg daily, leg elevation, low salt diet. Health Concerns Section Related Observation LastModified by Organization Detai ls LastModified Time None Recorded Concern Status LastModified by Organization Details LastModified Time None Recorded Advance Directives Directive None Recorded Payers Insurance Date Sequence Insurance Name Policy Number Policy Leon Covered Member ID Leon Member ID Guarantor Name 09/21/2022 1 [facility] ON OR AFTER 11/25/20 (MEDICAID REPLACEMENT - HMO) Mann Alfaro Lemp [id number] Mann Alfaro Lemp 06/12/2022 1 [facility] PRIOR TO 11/25/2020 (MEDICAID REPLACEMENT - HMO) Mann Alfaro Lemp [id number] Mann Alfaro Lemp Notes Date Note Type Note Provider [...] No nausea and vomiting. He was at [facility] In April after a syncopal event with [...] leads. Poor R progression in chest leads. [facility] 06/17/18: Atrial fibrilation with nonspecific T [...] study was technically limited. Rhythm is Atrial fibrillation. Compared to prior study, changes are noted. [...] with mild vascular congestion. Arsenio Amaya MD [address] [place], [address], [facility] 08/04/2019 18:30:16 08/27/2019 text/html [...] here for hospital follow-up. He was in [facility] in 08/04/19 because of near syncope, [...] side effects from medications. He was at [facility] In April after a syncopal event with [...] leads. Poor R progression in chest leads. [facility] 06/17/18: Atrial fibrilation with nonspecific T [...] study was technically limited. Rhythm is Atrial fibrillation. Compared to prior study, changes are noted. [...] similar. Cardiomegaly with mild vascular congestion. Mirta Esposito [place], [place] - [facility] 08/27/2019 15:47:16 [...] at this time. Previously, He was in [facility] in 08/04/19 because of near syncope, [...] side effects from medications. He was at [facility] In April after a syncopal event with [...] leads. Poor R progression in chest leads. [facility] 06/17/18: Atrial fibrilation with nonspecific T [...] study was technically limited. Rhythm is Atrial fibrillation. Compared to prior study, changes are noted. [...] Cardiomegaly with mild vascular congestion. Daria Jon [place], [place] - [facility] 11/19/2020 13:09:09 06/27/2022 text/html 06/27/22CC : Cardiac follow up a fib and dyspnea on [id number] year-old white man with chronic atrial fibrillation, [...] takes simvastatin 40 mg. Previously:He was in [facility] in 08/04/19 because of near syncope, [...] on 4L cont O2. He was at [facility] In April after a syncopal event with [...] leads. Poor R progression in chest leads. [facility] 06/17/18: Atrial fibrilation with nonspecific T [...] study was technically limited. Rhythm is Atrial fibrillation. Compared to prior study, changes are noted. [...] similar. Cardiomegaly with mild vascular congestion. [facility] [place] [facility] 06/27/2022 18:23:12 09/21/2022 text/html 09/21/22CC : Cardiac follow up, dyspnea on year-old white man with chronic [...] having more a fib. He was in [facility] in 08/04/19 because of near syncope, [...] on 4L cont O2. He was at [facility] In April after a syncopal event with [...] leads. Poor R progression in chest leads. [facility] 06/17/18: Atrial fibrilation with nonspecific T [...] study was technically limited. Rhythm is Atrial fibrillation. Compared to prior study, changes are noted. [...] vascular congestion. Arsenio Amaya MD [address] [place], [address], [place] - [facility] 09/21/2022 16:34:44
--- OUTSIDE RECORDS SUMMARY | 2025-04-02 18:23 | XMS_ITS | Clinical Summary ---
Author Organization [place] [id number] Address [address] [place] [address] Care Team Providers Care Deblocker Name Role Phone No, Physician Unavailable Vangie Valentine MD Primary Care Provider [phone] Allergies Active Allergy Reactions Criticality Noted Date [...] Medical History Medical History Date Comments Diabetes Neuropathy Hypertension A-fib ([facility]) CHF (congestive heart failure) ([facility]) Family History Medical History Relation Name [...] Pneumococcal vaccine 65+ (2 of 2 - PPSV23, PCV20, or PCV21) 07/25/2018 05/30/2018 Abdominal Aortic Aneurysm (A AA) Screen 08/18/2023 05/13/2018 Well Visit 65+ 08/18/2023 Covid-19 Vaccine (3 - 2024-2 6 season) 2025 10/12/2020, 08/19/2020 Influenza Vaccine (#1) 2025 , 07/03/2019, 04/10/2019, Additional history exists Procedures Procedure Name Priority Date/Time Associated Diagnosis Comments CT ABDOMEN PELVIS W CONTRAST Routine 05/13/2018 12:00 AM WARP STARTER from Last 3 Months or Most Recently Relevant to Health Maintenance Results * CT Abdomen Pelvis W Contrast (05/13/2018 12:00 AM WARP STARTER) Anatomical Region Laterality Modality Body N/A Computed Tomogra phy 05/13/2018 Impressions 05/13/2018 2:50 AM WARP STARTER No acute findings in the abdomen or pelvis. THIS IS AN ELECTRONICALLY VERIFIED FINAL REPORT 05/13/2018 2:47 AM - Electronically signed by Mario Garcia M.D. RW T: Report ID: [id number] Reading Location: [id number] [EOD] Narrative 05/13/2018 2:50 AM WARP STARTER EXAM DESCRIPTION: CT Abd/Pelvis W IV Contrast [...] Mario Garcia M.D. RW T: Report ID: [id number] Reading Location: [place] [id number] [EOD] Richardson Kilgore NP IMG CT PROCEDURES Final R esult from Last 3 Months or Most Recently Relevant to Health Maintenance [place] [address] [place] [address] IDPA [facility] MEDICARE ADVANTAGE Care Teams Deblocker Relationship Specialty Start Date End Date Vangie Valentine MD [address] [place] [id number] PCP - General Internal Medicine 06/11/19 No, Physician 05/18/18
--- OUTSIDE RECORDS SUMMARY | 2025-04-02 18:23 | XMS_ITS | Clinical Summary ---
Author Organization [facility] Address [address] [address] Care Team Providers Care Tapping Machine Operator Automatic Name Role Phone Vangie Valentine MD Primary Care Provider [phone] Source Comments [facility],non-owned Affiliates and Associated Physician Practices is amultiple site organization consisting of ambulatory clinics and hospital sitesin [place], [place], [place] and [place]. This disclosure is being madepursuant to the Care Everywhere program and may not contain all information available regarding this patient. Last updated 18.[facility] Allergies Active Allergy Reactions Criticality Noted Date Comments Lidocaine Swelling Medium 11/25/2021 Medications * Be aware that medications may not be up to date on this document. Alwaysverify current medications with the patient. albuterol HFA (Proventil; Ventolin; Proair) 108 (90 Base) MCG/ACT inhaler Inhale 2 (two) puffs by mouth every 4 hours as needed 3 Active Aspirin Low Dose 81 MG tablet Take 1 (one) tablet by mouth once daily as directed. 2 Active Symbicort 160-4.5 MCG/ACT inhaler Inhale 2 (two) puffs by mouth 2 times daily 3 Active carvedilol (Coreg) 6.25 MG tablet Take 1 (one) tablet by mouth 2 times daily 3 Active cyclobenzaprine (Flexeril) 10 MG tablet Take 1 (one) tablet by mouth 3 times daily 3 Active digoxin (Lanoxin) 0.25 MG tablet Take 1 (one) tablet by mouth once daily 3 Active EPINEPHrine (Epipen) 0.3 MG/0.3ML auto-injector pen INJECT 1 PEN IN THE MUSCLE ONE TIME DIRECTED 3 Active furosemide (Lasix) 40 MG tablet Take 1 (one) tablet by mouth once daily as needed 3 Active gabapentin (Neurontin) 800 MG tablet TAKE 2 TABLETS BY MOUTH TWICE DAILY DIRECTED 3 Active albuterol-ipratr opium (Duo-Neb) 0.5-2.5 (3) MG/3ML nebulizer solution 3 Active Magnesium Oxide -Mg Supplement 400 (240 Mg) MG 3 Active metoprolol succinate XL 24hr (Toprol XL) 50 MG tablet Take 1 (one) tablet by mouth once daily 3 Active potassium chloride ER 10 MEQ tablet TAKE 2 TABLETS BY MOUTH EVERY DAY DIRECTED 3 Active pioglitazone (Actos) 30 MG tablet TAKE 1 TABLET BY MOUTH EVERY DAY WITH A MEAL 3 Active ketoconazole (Nizoral) 2 % shampooIndicatio ns:Tinea versicolor Apply to wet hair, leave on for 3 minutes, then rinse; three times weekly. 30 days supply 120 mL 2 3 Active triamcinolone acetonide (Kenalog) 0.1 % ointmentIndicati ons:Venous stasis dermatitis of both lower extremities Apply to affected areas twice daily. 30 days supply. 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 Gender Identity Not on file Sexual Orientation Not on file Last Filed Vital Signs Vital Sign Reading Time Taken Comments Blood Pressure 135/97 06/28/2023 8:35 AM BORDER MEASURER Pulse 90 06/28/2023 8:35 AM BORDER MEASURER Temperature 36.6 C (97.9 F) 06/28/2023 8:35 AM BORDER MEASURER Respiratory Rate - - Oxygen Saturation - - Inhaled Oxygen Concentration - - Weight 135.2 kg (298 lb) 06/28/2023 8:35 AM BORDER MEASURER Height 182.9 cm (6') 06/28/2023 8:35 AM BORDER MEASURER Body Mass Index 40.42 06/28/2023 8:35 AM BORDER MEASURER Plan of Treatment Health Maintenance Due Date Last Done Comments COLOGUARD (AGES 45-75) - COL ON CA SCREENING 1958 COLON MONITORING 1958 COLONOSCOPY - COLON CA SCREENING 1958 CT COLONOGRAPHY - COLON CA SCREENING 1958 Colorectal Cancer Screening 1958 FIT - COLON CA SCREENING 1958 FLEX SIG - COLON CA SCREENING 1958 LIPID TESTING 1958 HEPATITIS C SCREENING 08/12/1976 DTAP/TDAP/TD VACCINES (1 - Tdap) 1977 PNEUMOCOCCAL VACCINE 50+ (1 of 1 - PCV) 2008 ZOSTER VACCINE (1 of 2) 2008 Respiratory Syncytial Virus (RSV) Vaccine Pt: or over 60 yrs (1 - Risk 60-74 years 1-dose series) 2018 SCREENING FOR DIABETES 06/28/2023 DEPRESSION SCREENING 05/28/2024 COVID-19 VACCINE (3 - 2024-2 6 season) 2025 01/16/2022, 08/19/2020 INFLUENZA VACCINE (#1) 2025 3, 07/03/2019, 04/10/2019 HEPATITIS B VACCINE Aged [...] patient's age to complete this topic Insurance [facility] UHC MANAGED MEDICARE ADV MEDICAID - [place] SELF PAY NO INSURANCE Member Subscriber Plan / Payer (Ef fective for All Dates) Name:Ramon Choudhury Member ID:Not on file Relation to Subscriber:Not on file Name:RAMON CHOUDHURY Subscriber ID:Not on file (Home) Address: [address] [place] [id number] Payer ID:Not on file Group ID:Not on file Type:Self Pay Address: [place], [place] Care Teams Tapping Machine Operator Automatic Relationship Specialty Start Date End Date Vangie Valentine MD [address] [place] [address] PCP - General 08/18/21
== END 2025-04-02 10:02 | disposition home or self-care (01) ==
LOC: ANHLAB 10:04
PROVIDERS: PCP Family Medicine Adolescent Medicine; Visit Provider Student in an Organized Health Care Education/Training Program
DX: Z12.5 Encounter for screening for malignant neoplasm of prostate (principal); E78.5 Hyperlipidemia, unspecified; I11.0 Hypertensive heart disease with heart failure; I50.9 Heart failure, unspecified; E11.9 Type 2 diabetes mellitus without complications; F41.9 Anxiety disorder, unspecified; I21.9 Acute myocardial infarction, unspecified; I48.91 Unspecified atrial fibrillation; R53.83 Other fatigue
CPT/HCPCS: 36415; 80053; 80061; 82607; 82728; 82746; 83036; 83540; 83550; 83735; 84153; 84439; 84443; 85025; 85055; 85610; 85652; G0103

== ENCOUNTER 2025-04-09 11:44 | Outpatient (CLI) | payer MEDICARE, MEDICAID, SELFPAY ==
--- NOTE | 2025-04-09 11:55 | ECG_ITS ---
Test Date: 2025-04-09 12:12:23 Measurements Intervals [place] Rate: 90 P: 0 [place]: 0 QRS: -50 QRSD: 163 T: -23 QT: 372 QTc: 457 Interpretive Statements ATRIAL FIBRILLATION LEFT AXIS DEVIATION [QRS AXIS < -30] RIGHT BUNDLE BRANCH BLOCK [120+ ms QRS DURATION, UPRIGHT V1, 40+ ms S IN I/aVL/V4/V5/V6] Compared to ECG 06/26/2024 14:22:24 Left-axis deviation now present Left anterior fascicular block no longer present Electronically Signed On 04-09-2025 12:35:02 BALANCE STAFF STAKER by Medhat Ryder M.D.
--- OUTSIDE RECORDS SUMMARY | 2025-04-09 12:47 | XMS_ITS | Clinical Summary ---
Author Organization [place] [id number] Address [address] [place] [address] Care Team Providers Care Jailor Name Role Phone No, Physician Unavailable Vangie Valentine MD Primary Care Provider [phone] Allergies Active Allergy Reactions Criticality Noted Date [...] History Date Comments Diabetes Neuropathy Hypertension A-fib ([facility]) CHF (congestive heart failure) ([facility]) Family History Medical History Relation Name Comments [...] PELVIS W CONTRAST Routine 05/13/2018 12:00 AM ENVIRONMENTAL ENGINEERING MANAGER from Last 3 Months or Most Recently Relevant to Health Maintenance Results * CT Abdomen Pelvis W Contrast (05/13/2018 12:00 AM ENVIRONMENTAL ENGINEERING MANAGER) Anatomical Region Laterality Modality Body N/A Computed Tomogra phy 05/13/2018 Impressions 05/13/2018 2:50 AM ENVIRONMENTAL ENGINEERING MANAGER No acute findings in the abdomen or pelvis. THIS IS AN ELECTRONICALLY VERIFIED FINAL REPORT 05/13/2018 2:47 AM - Electronically signed by Mario Garcia M.D. RW T: Report ID: [id number] Reading Location: [id number] [EOD] Narrative 05/13/2018 2:50 AM ENVIRONMENTAL ENGINEERING MANAGER EXAM DESCRIPTION: CT Abd/Pelvis W IV Contrast [...] Mario Garcia M.D. RW T: Report ID: [id number] Reading Location: [place] [id number] [EOD] Richardson Kilgore NP IMG CT PROCEDURES Final R esult from Last 3 Months or Most Recently Relevant to Health Maintenance Insurance [place] [address] IDPA [facility] MEDICARE ADVANTAGE [facility] MEDICARE Address: [address] [address] [place] [address] Care Teams Jailor Relationship Specialty Start Date End Date Vangie Valentine MD [address] [place] [id number] PCP - General Internal Medicine 06/11/19 No, Physician 05/18/18
--- OUTSIDE RECORDS SUMMARY | 2025-04-09 12:47 | XMS_ITS | Data Portability ---
Author Organization [facility] OFFICE Address [address] [place] [address] Care Team Providers Care Safety Person Name Role Phone JOAN TELLO Primary Care [...] 50 mg tablet,e xtended release 2022 023 [facility] #02937, [address], [place], [id number], 3 18:23:15 Xarelto 20 mg tablet 2020 021 [facility]10105, [address], [place], [id number], 1 13:03:44 furosemi de 40 mg tablet 2019 020 INTERFACE [facility], [address], [place], [id number], 0 15:47:14 aspirin 325 mg tablet 2019 020 [facility] #79705, [address], [place], [id number], 3 16:34:26 Cardizem CD 240 mg capsule, extended release 2019 INTERFACE [facility] #69935, [address], [place], [id number], 0 15:47:17 carvedil ol 6.25 mg tablet 2019 [facility] #72190, [address], [place], [id number], 3 16:34:23 Digox 250 mcg (0.25 mg) tablet 2019 INTERFACE [facility] #59911, [address], [place], [id number], 0 15:47:14 simvasta tin 40 mg tablet 2019 INTERFACE [facility] #08665, [address], [place], [id number], 0 15:47:14 aspirin 325 mg tablet 2019 [facility] #73282, [address], [place], [id number], 3 16:34:26 carvedil ol 6.25 mg tablet 2019 020 [facility] #74799, [address], [place], [id number], 3 16:34:23 Digox 250 mcg (0.25 mg) tablet 2019 [facility]FACE [facility]91843, [address], [place], [id number], 0 12:27:53 Cardizem CD 240 mg capsule, extended release 2019 020 INTERFACE [facility] #67219, [address], [place], [id number], 0 12:27:51 simvasta tin 40 mg tablet 2019 020 INTERFACE [facility] #87203, [address], [place], [id number], 0 12:27:51 furosemi de 40 mg tablet 2019 020 INTERFACE [facility] #48898, [address], [place], [id number], 0 12:27:53 potassiu m chloride ER 10 mEq tablet,e xtended release 2019 020 INTERFACE [facility] #27062, [address], [place], [id number], 0 12:27:54 Patient TargetsNo targets recorded. Patient Instructions Encounter Date Encounter Id Patient Instructions Last Modified By Organization Details Last Modified Time 07/15/2019 [id number] Exercise advised. Low cholesterol diet advised. Low sodium diet advised. [email or web address] Not available 07/15/2019 12:12:37 Scribed by Tram [email or web address] Not available 07/15/2019 12:12:29 08/27/2019 [id number] Weight loss 20 pounds Exercise advised Low cholesterol diet advised Low sodium diet advised. [email or web address] Not available 08/27/2019 14:20:19 This document was scribed by DENY Brenneralli Not available 08/27/2019 14:20:26 09/21/2022 [id number] Weight loss 20 pounds Exercise advised Low [...] diogr am No observ ation record ed. [email or web address] Not Available 2019 15:43:19 08/27/19 20 08/04/2019 XR, chest , 1 view No observ ation record ed. [email or web address] Not Available 08/26 16:18:28 11/26/19 21 11/19/2020 elect rocar diogr am No observ ation record ed. Not Available 11/25 11:32:25 07/10/19 23 06/27/2022 [facility] rocar diogr am No observ ation record ed. [email or web address] Not Available 2022 10:48:57 09/30/19 23 09/18/2022 , echoc ardio gram No observ ation record ed. [email or web address] Not Available 2022 12:46:06 Result Notes None recorded. Problems Name Problem SNOMED Code Status Onset Date Resolution Date Notes Provider Name and Address Organization Details Recorded Time Palpitations 35367063 Active 2015 Not Available [facility] 4 15:52:41 Paroxysmal atrial fibrillation 528791994 Active 2015 Not Available [facility] 4 15:52:41 Obstructive sleep apnea syndrome 63282239 Active 2015 not on CPAP ( only O2 at night) Not Available [facility] 4 15:52:41 Diabetes mellitus 99685250 Active 2015 Not Available [facility] 4 15:52:41 Congestive heart failure 59567732 Active 2015 Not Available [facility] 4 15:52:41 Hypersomnia 17682790 Active 2015 Not Available [facility] 4 15:52:41 Chronic obstructive pulmonary disease 10800353 Active 2015 Not Available [facility] 4 15:52:40 Asthma 781181694 Active 2015 Not Available [facility] 4 15:52:41 Gastroesophag eal reflux disease 532930158 Active 2015 Not Available [facility] 4 15:52:41 Morbid obesity 561797286 Active 2015 Not Available [facility] 4 15:52:41 History of obesity 700414797 Active 2016 Not Available [facility] 4 15:52:40 Edema 463400550 Active 2016 Not Available [facility] 4 15:52:41 Cardiac arrhythmia 830640139 Active 2016 Not Available [facility] 4 15:52:41 Acute anoxic encephalopath y 41165797 Active 2016 Not Available [facility] 4 15:52:41 Acute hypercapnic respiratory failure 953063458 Active 2016 Not Available [facility] 4 15:52:41 Community acquired pneumonia 382744095 Active 2016 Not Available [facility] 4 15:52:41 Benign essential hypertension 6941927 Active 2017 Not Available [facility] 4 15:52:40 Dyslipidemia 408030373 Active 2018 Not Available [facility] 4 15:52:41 Dyspnea on exertion 75790104 Active 2018 Not Available [facility] 4 15:52:41 Notes:Fracture of right hand ( secondary to lose of consciousnes ) (10/07) Problem Notes None recorded. Procedures Surgical History Date Name Laterality Status Provider Name and Address Organization Details Recorded Time Tonsillectomy/Alexia noidectomy completed [facility] 10/18/2015 15:27:[address] [facility] 10/18/2015 15:27:49 Orthopedic Surgery completed [facility] 10/18/2015 15:27:59 Imaging Results None recorded. Procedure Notes None recorded. Medical Equipment None Reported. Allergies Allergen ID Allergen Name Allergen Category Reaction Reaction Severity Criticality Documentation Date Start Date Code Code System Note Provider Name and Address Organization Details Recorded Time 3988 lidocaine medicatio n facial swelling severe Not available 09/11/2016 6387 [facility] 7 16:58:29 Medications Name Sig Start Date [...] Updated DateTime 3 182.88 cm 40 kg/m2 306363. 47 g 94 % 94 % 81 /min 104/72 mm[Hg] JAYLA PRASAD [facility] 3 17:49:45 Date Recorded Body height Body mass index (BMI) Body weight Heart rate Oxygen saturation Oxygen saturation in Arterial blood by Pulse oximetry Systolic And Diastolic Provider Name and Address Organization Details Last Updated DateTime 0 182.88 cm 44.8 kg/m2 082622. 48 g 70 /min 90 % 90 % 130/90 mm[Hg] SIN RYDER [facility] 0 11:57:43 Date Recorded Body height Heart rate Oxygen saturation Oxygen saturation in Arterial blood by Pulse oximetry Systolic And Diastolic Provider Name and Address Organization Details Last Updated DateTime 0 182.88 cm 100 /min 90 % 90 % 126/86 mm[Hg] My Perera [facility] 0 14:05:28 Date Recorded Body height Body mass index (BMI) Body weight Heart rate Respiratory rate Oxygen saturation Oxygen saturation in Arterial blood by Pulse oximetry Systolic And Diastolic Provider Name and Address Organization Details Last Updated DateTime 3 182.88 cm 38.4 kg/m2 642839. 64 g 77 /min 16 /min 98 % 98 % 122/84 mm[Hg] Augie Salgado [facility] 3 16:01:01 Date Recorded Body weight Oxygen saturation Oxygen saturation in Arterial blood by Pulse oximetry Heart rate Systolic And Diastolic Provider Name and Address Organization Details Last Updated DateTime 1 001049. 63 g 94 % 94 % 110 /min 122/67 mm[Hg] SANTO PROCTOR [facility] 1 12:33:20 Social History Question Answer Notes LastModified by Organizat ion Details LastModified Time Tobacco Smoking Status Former Smoker Debra stern [facility] 10/18/2015 15:34:26 Which Illicit Or Recreational [...] Codes Diagnosis Note 5510 Arsenio Amaya MD [facility] OFF[facility] [address] [place] [address] 03/13/2016 16:20:46 03/14/2016 10:31:22 Benign essential hypertension 4916970 I10 with fair control Paroxysmal atrial fibrillation 206360670 I48.0 Now in NSR. On Full dose ASA Obstructiv e sleep apnea syndrome 09200027 G47.33 Will need Cpap 61208 Arsenio Amaya MD [facility] OFFICE [address] [place] [address] 09/11/2016 15:55:04 09/12/2016 09:58:35 Chronic obstructive pulmonary disease 69355913 J44.9 Benign ess ential hypertension 0718044 I10 with fair control Paroxysmal atrial fibrillation 720955816 I48.0 Now in NSR. On Full dose ASA Obstructiv e sleep apnea syndrome 47743164 G47.33 Will need Cpap Hypertensive disorder 38 047564 I10 Congestive heart failure 48898692 I50.9 Palpitations 85797397 R0 0.2 32066 MD Tahira [facility] Office [address] [place] [address] 06/17/2018 12:11:07 06/17/2018 13:51:43 Paroxysmal atrial fibrillation 113675987 I48.0 A-fib today wth RVR at 103 bpm.Will anticoagul ate with Eliquis. Continue Coreg and Cardizem. Has normal LV systolic function. He needs to be on Coumadin, but he had bleeding from that. Obstructiv e sleep apnea syndrome 39340479 G47.33 Will need Cpap. F/u with Dr. Goodman. Needs repeat sleep study. Chronic ob structive pulmonary disease 61522092 J44.[address] Goodman. Benign ess ential hypertension 5056196 I10 with fair control. Continue current regimen. Needs medication compliance . Diabetes mellitus 375091 09 E11.9 Borderline . Treatment and evaluation by primary care doctor. Discussed importance of adequate glycemic control to minimize cardiovasc ular disease progressio n. A1C goal of < 7% for type 2 DM Dyslipidemia 062362286 E 78.5 Needs to keep LDL less than 70, and HDL more than 40 Will get lipid profile results from PCP Congestive heart failure 41022724 I50.9 HF-pEFHad ECHO 05/13/18 showing normal LV size and functionCo ntinue lasix with daily compliance . Dyspnea on exertion 6084 5006 R06.09 Multifacto rial. Could be angina equivalent . Will obtain Lexiscan Myoview Stress Test to look for any ischemia. Patient cannot walk. Has a high Wentworth Risk score. Has Known CAD and/or CAD risk equivalent . Continue maximal [place] [address] MD Tahira Schaeffer Office [address] [place] [address] 07/17/2018 15:25:46 07/17/2018 16:24:37 Dyspnea on exertion 51761493 R06.09 Multifacto rial. Could be angina equivalent . Will obtain Lexiscan Myoview Stress Test to look for any ischemia. Patient cannot walk. Has a high Wentworth Risk score. Has Known CAD and/or CAD risk equivalent . Continue maximal medical treatment and risk factor modificati on Chronic ob structive pulmonary disease 61131970 J44.[address] Goodman. Paroxysmal atrial fibrillation 165531475 I48.0 A-fib today. HR is well controlled on Cardizem. Continue full-dose ASA. Hyperlipidemia 39487517 E78.5 Benign ess ential hypertension 8782963 I10 with fair control. Continue current regimen. Needs medication compliance . Dyslipidemia 903241302 E 78.5 Needs to keep LDL less than 70, and HDL more than 40 Will get lipid profile results from PCP Diabetes mellitus 173984 09 E11.9 Borderline . Treatment and evaluation by primary care doctor. Discussed importance of adequate glycemic control to minimize cardiovasc ular disease progressio n. A1C goal of < 7% for type 2 DM Obstructiv e sleep apnea syndrome 04376464 G47.33 Will need Cpap. F/u with Dr. Goodman. Needs repeat sleep study. Chronic di astolic heart failure 958224740 I50.32 Had echo 05/13/18 ECHO: E/E prime ratio is 8-15 which is in the indetermin ate zone. Left ventricula r systolic function appears to be normal. No obvious regional wall motion abnormalit ies noted. The study was technicall y difficult. Congestive heart failure 22451367 I50.9 24798 Arsenio Amaya MD [facility] OFF[facility] [address] [place] [address] 01/21/2019 14:37:56 05/14/2019 11:21:11 Congestive heart failure 94427872 I50.9 Euvolemic. Low salt diet. Hyperlipidemia 18061861 E78.5 Needs to keep LDL less than 70, and HDL more than 40 Will get fasting lipids for follow up04/2017 TC 151, HDL 33, TR 101, LDL 98 Essential hypertension 45674267 I10 Controlled . Paroxysmal atrial fibrillation 700289587 I48.0 A-fib today. HR is well controlled on Cardizem. Continue full-dose ASA. Dizziness 788507632 R42 Likely due to AFIB. Dyspnea on exertion 6084 5006 R06.09 Multifacto rial. Could be angina equivalent .Dobutamin e Myoview stress test, pt can not walk. Has known coronary artery disease, with atypical symptoms now. Rest imaging was done 07/2018. WIll do stress imaging only.Terrance nue [place] [address] Arsenio Amaya MD [facility] OFFICE [address] [place] [address] 07/15/2019 11:01:00 08/04/2019 18:30:17 Dyspnea on exertion 83064897 R06.09 Multifacto rial. Could be angina equivalent .03/12/19 Negative Dobutamine stress test for ischemia. Normal LV systolic function. LVEF 61 %Rest imaging was done 07/2018. WIll do stress imaging only.Terrance nurodolfo maximal medical treatment and risk factor modificati on Congestive heart failure 00737582 I50.9 Euvolemic. Low salt diet. Hyperlipidemia 01016399 E78.5 Needs to keep LDL less than 70, and HDL more than 40 Will get fasting lipids for follow up04/2017 TC 151, HDL 33, TR 101, LDL 98 Essential hypertension 86283838 I10 Controlled . Paroxysmal atrial fibrillation 569626899 I48.0 A-fib today. HR is well controlled on Cardizem. Continue full-dose ASA.pt. states that he is currently taking ASA 325 mg BID. consider albation if symptoms persist Dizziness 976156900 R42 Likely due to AFIB. [address]4029 Arsenio Amaya MD [facility] Office [address] [place] [address] 08/27/2019 13:42:23 08/27/2019 14:45:48 Dyspnea on exertion 76253123 R06.09 Stable. 03/12/19 DOBUTAMINE : Negative Dobutamine Stress test for ischemia. Normal LV systolic function. LVEF 61% Hyperlipidemia 18318578 E78.5 Needs to keep LDL less than 70, and HDL more than 40 Will get fasting lipids for follow up04/2017 TC 151, HDL 33, TR 101, LDL 98 Essential hypertension 55172219 I10 Controlled . Paroxysmal atrial fibrillation 090387378 I48.0 Recent admission with bradycardi a. Now he is back on Cardizem, Digoxin and Coreg. CHADSVASC score 3. Consider starting AC. Currently on full dose ASA Obstructiv e sleep apnea syndrome 91904624 G47.33 On BIPAP. Edema of l ower extremity 904726507 R60.0 stable. Continue lasix, leg elevation, low salt diet. 72345 Arsenio Amaya MD [facility] OFFICE [address] [place] [address] 11/19/2020 12:24:06 11/19/2020 13:03:45 Paroxysmal atrial fibrillation 371039900 I48.0 Recent admission with bradycardi a. Now he is back on Cardizem, Digoxin and Coreg. CHADSVASC score 3.Stop ASAStart Xarelto Dyspnea on exertion 6084 5006 R06.09 Stable. Obtain echo to evaluate for structural /functiona l disease. 03/12/19 DOBUTAMINE : Negative Dobutamine Stress test for ischemia. Normal LV systolic function. LVEF 61% Hyperlipidemia 65679799 E78.5 Needs to keep LDL less than 70, and HDL more than 40 Will get fasting lipids for follow up04/2017 TC 151, HDL 33, TR 101, LDL 98 Essential hypertension 72536385 I10 Controlled . Obstructiv e sleep apnea syndrome 19840213 G47.33 On BIPAP. Edema of l ower extremity 507442867 R60.0 stable. Continue lasix, leg elevation, low salt diet. 36413 Arsenio Amaya MD [facility] OFF[facility] [address] [place] [address] 06/27/2022 17:20:25 06/27/2022 18:24:45 Paroxysmal atrial fibrillation 467120096 I48.0 Recent admission with bradycardi a. Now [...] Normal LV systolic function. LVEF 61% Hyperlipidemia 17077084 E78.5 Needs to keep LDL less than 70, and HDL more than 40 Will get fasting lipids for follow up04/2017 TC 151, HDL 33, TR 101, LDL 98 Essential hypertension 51230385 I10 Controlled . Obstructiv e sleep apnea syndrome 16085884 G47.33 On BIPAP. Edema of l ower extremity 262734452 R60.0 increased to twice daily lasix 40 mg for one week then go back to 40 mg daily, leg elevation, low salt diet. 05086 Arsenio Amaya MD [facility] OFF[facility] [address] [place] [address] 09/21/2022 15:55:44 09/21/2022 16:40:03 Paroxysmal atrial fibrillation 557025185 I48.0 Recent admission with bradycardi a. Now he is back on Cardizem, Digoxin and Coreg. CHADSVASC score 3. On Toprol xl 50 mg Dyspnea on exertion 6084 5006 R06.09 Normal Left ventricula r systolic function 03/12/19 DOBUTAMINE : Negative Dobutamine Stress test for ischemia. Normal LV systolic function. LVEF 61% Hyperlipidemia 33747349 E78.5 Needs to keep LDL less than 70, and HDL more than 40 Will get fasting lipids for follow up04/2017 TC 151, HDL 33, TR 101, LDL 98 Essential hypertension 19502535 I10 Controlled . Obstructiv e sleep apnea syndrome 07473313 G47.33 On BIPAP. Edema of l ower extremity 834458888 R60.0 On Lasix 40 mg daily, leg elevation, low salt diet. Health Concerns Section Related Observation LastModified by Organization Detai ls LastModified Time None Recorded Concern Status LastModified by Organization Details LastModified Time None Recorded Advance Directives Directive None Recorded Payers Insurance Date Sequence Insurance Name Policy Number Policy Leon Covered Member ID Leon Member ID Guarantor Name 09/21/2022 1 [facility] ON OR AFTER 11/25/20 (MEDICAID REPLACEMENT - HMO) Mann Alfaro Lemp [id number] Mann Alfaro Lemp 06/12/2022 1 [facility] PRIOR TO 11/25/2020 (MEDICAID REPLACEMENT - HMO) Mann Alfaro Lemp [id number] Mann Alfaro Lemp Notes Date Note Type [...] No nausea and vomiting. He was at [facility] In April after a syncopal event [...] leads. Poor R progression in chest leads. [facility] EKG 06/17/18: Atrial fibrilation with nonspecific [...] with mild vascular congestion. Arsenio Amaya MD [address] [place], [address], [facility] 08/04/2019 18:30:16 08/27/2019 text/html [...] here for hospital follow-up. He was in [facility] in 08/04/19 because of near syncope, found [...] side effects from medications. He was at [facility] In April after a syncopal event [...] Cardiomegaly with mild vascular congestion. Mirta Esposito [place], [place] - [facility] 08/27/2019 15:47:16 [...] at this time. Previously, He was in [facility] in 08/04/19 because of near syncope, found [...] side effects from medications. He was at [facility] In April after a syncopal event [...] leads. Poor R progression in chest leads. [facility] EKG 06/17/18: Atrial fibrilation with nonspecific [...] Cardiomegaly with mild vascular congestion. Daria Jon [place], [place] - [facility] 11/19/2020 13:09:09 06/27/2022 text/html 06/27/22CC : Cardiac follow up a fib and dyspnea on [id number] year-old white man with chronic atrial fibrillation, [...] takes simvastatin 40 mg. Previously:He was in [facility] in 08/04/19 because of near syncope, found [...] on 4L cont O2. He was at [facility] In April after a syncopal event [...] leads. Poor R progression in chest leads. [facility] EKG 06/17/18: Atrial fibrilation with nonspecific [...] Cardiomegaly with mild vascular congestion. BRUNO ROBLES [facility] [place] - [facility] 06/27/2022 18:23:12 09/21/2022 text/html 09/21/22CC : Cardiac follow up, dyspnea on [id number] year-old white man with chronic atrial fibrillation, [...] having more a fib. He was in [facility] in 08/04/19 because of near syncope, [...] on 4L cont O2. He was at [facility] In April after a syncopal event [...] leads. Poor R progression in chest leads. [facility] EKG 06/17/18: Atrial fibrilation with nonspecific [...] vascular congestion. Arsenio Amaya MD [address] [place], [address], [place] - [facility] 09/21/2022 16:34:44
--- OUTSIDE RECORDS SUMMARY | 2025-04-09 12:47 | XMS_ITS | Clinical Summary ---
Author Organization [facility] Address [address] [place] [address] Care Team Providers Care Business Intelligence Analyst Name Role Phone Vangie Valentine MD Primary Care Provider [phone] Source Comments [facility],non-owned Affiliates and Associated Physician Practices is amultiple site organization consisting of ambulatory clinics and hospital sitesin [place], [place], [place] and [place]. This disclosure is being madepursuant to the Care Everywhere program and may not contain all information available regarding this patient. 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 Gender Identity Not on file Sexual Orientation Not on file Last Filed Vital Signs Vital Sign Reading Time Taken Comments Blood Pressure 135/97 06/28/2023 8:35 AM CLOCKSMITH Pulse 90 06/28/2023 8:35 AM CLOCKSMITH Temperature 36.6 C (97.9 F) 06/28/2023 8:35 AM CLOCKSMITH Respiratory Rate - - Oxygen Saturation - - Inhaled Oxygen Concentration - - Weight 135.2 kg (298 lb) 06/28/2023 8:35 AM CLOCKSMITH Height 182.9 cm (6') 06/28/2023 8:35 AM CLOCKSMITH Body Mass Index 40.42 06/28/2023 8:35 AM CLOCKSMITH Plan of Treatment Health Maintenance Due Date [...] 50+ (1 of 1 - PCV) 2008 Respiratory Syncytial Virus (RSV) Vaccine Pt: or over 60 yrs (1 - Risk 50-74 years 1-dose series) 2008 ZOSTER VACCINE (1 of 2) 2008 SCREENING FOR DIABETES 06/28/2023 DEPRESSION SCREENING 05/28/2024 [...] patient's age to complete this topic Insurance [facility] U[facility] MANAGED MEDICARE ADV MEDICAID - [place] SELF PAY NO INSURANCE Member Subscriber Plan / Payer (Ef fective for All Dates) Name:Ramon Choudhury Member ID:Not on file Relation to Subscriber:Not on file Name:RAMON CHOUDHURY Subscriber ID:Not on file (Home) Address: [address] [place] [id number] Payer ID:Not on file Group ID:Not on file Type:Self Pay Address: [place], [place] Care Teams Business Intelligence Analyst Relationship Specialty Start Date End Date Vanige Valentine MD [address] [place] [address] PCP - General 08/18/21
--- OUTSIDE RECORDS SUMMARY | 2025-04-09 12:47 | XMS_ITS | Clinical Summary ---
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
[2025-04-11 16:08] LABS: Free Testosterone (Direct) 4.8 pg/mL (6.6-18.1)
== END 2025-04-09 11:45 | disposition home or self-care (01) ==
LOC: ANHLAB 11:47
PROVIDERS: PCP Family Medicine; Visit Provider Student in an Organized Health Care Education/Training Program
DX: F41.9 Anxiety disorder, unspecified (principal); I50.9 Heart failure, unspecified; I21.9 Acute myocardial infarction, unspecified; I48.91 Unspecified atrial fibrillation; E78.5 Hyperlipidemia, unspecified; E11.9 Type 2 diabetes mellitus without complications; R53.83 Other fatigue; R06.09 Other forms of dyspnea; I11.0 Hypertensive heart disease with heart failure
CPT/HCPCS: 84402; 84403; 93005

== ENCOUNTER 2025-04-29 14:06 | Outpatient (CLI) | payer MEDICARE, MEDICAID, SELFPAY ==
--- NOTE | 2025-04-29 15:06 | ECHO_ITS ---
Patient Info Name: Mann Choudhury Age: 64 years : 1960 Gender: Male Ht: 70 in Wt: 230 lbs BSA: 2.30 m2 HR: 91 bpm BP: 105 / 77 mmHg Heart Rhythm: Sinus Rhythm Technical Quality: Fair Exam Date: 04/29/2025 3:14 PM Patient Status: O Admit Date: 04/29/2025 Exam Type: CA echo doppler color flow Complete two-dimensional, color flow and Doppler transthoracic echocardiogram is performed. Sexual Health Physician: Miguelangel Mcdonough Attending Provider: Nuvia Villeda Summary 1. Complete two-dimensional, color flow and Doppler transthoracic echocardiogram is performed. 2. Left ventricular chamber dimension is normal. 3. Left ventricular systolic function is normal, estimated at 65-70. 4. The left ventricular diastolic function is normal. 5. E/e' 6 is not elevated. 6. Left atrial chamber dimension is moderately enlarged. 7. Right atrial chamber dimension is moderately enlarged. 8. The aortic valve is not well visualized. Cannot determine number of aortic valve leaflets. 9. There is mild aortic valve sclerosis. 10. The mitral valve has a mildly calcified annulus. Left Ventricle E/e' 6 is not elevated. Left ventricular chamber dimension is normal. Left ventricular systolic function is normal, estimated at 65-70. The left ventricular diastolic function is normal. Right Ventricle Right ventricular chamber dimension is normal. Right ventricular systolic function is normal and with normal TAPSE 2.1 cm. Left Atria Left atrial chamber dimension is moderately enlarged. Right Atria Right atrial chamber dimension is moderately enlarged. Aortic Valve The aortic valve is not well visualized. Cannot determine number of aortic valve leaflets. There is mild aortic valve sclerosis. There is no aortic valve stenosis. There is no aortic valve regurgitation. Pulmonic Valve There is no pulmonic regurgitation. Mitral Valve The mitral valve has a mildly calcified annulus. There is no mitral valve stenosis. There is no mitral valve regurgitation. Tricuspid Valve There is no tricuspid valve regurgitation. Pericardium/Pleural There is no pericardial effusion. Inferior Vena Cava Normal inferior vena cava with >50% collapse upon inspiration consistent with normal right atrial pressure, 5 mmHg. Aorta The aortic root size at the sinus of Valsalva is normal. Left Ventricular Outflow Tract Name Value Normal LVOT 2D LVOT Diameter 2.5 cm LVOT Doppler LVOT Peak Velocity 80 cm/s LVOT Peak Gradient 3 mmHg LVOT Mean Gradient 1 mmHg LVOT VTI 12 cm LVOT VTI/AV VTI Ratio 0.9 LVOT Stroke Volume 59 ml LVOT CO 6.8 l/min LVOT CI 3.0 l/min/m2 Pulmonic Valve Name Value Normal RVOT Doppler RVOT Peak Velocity 86 cm/s RVOT Peak Gradient 3 mmHg PV Doppler PV Peak Velocity 83 cm/s PV Peak Gradient 3 mmHg Mitral Valve Name Value Normal MV Diastolic Function MV E Peak Velocity 100 cm/s MV A Peak Velocity 2 cm/s MV E/A 42.7 MV Decel Time (PW) 116 ms MV Annular TDI MV E/e' (Septal) 6.3 MV E/e' (Lateral) 6.0 MV E/e' (Average) 6.2 Tricuspid Valve Name Value Normal Estimated PAP/RSVP RA Pressure 5 mmHg <=5 TV Annular TDI TV Lateral Lelo s' Velocity 15.7 cm/s >=9.5 Aorta Name Value Normal Ascending Aorta Ao Root Diameter (MM) 3.1 cm Ao Root Diam Index (MM) 1.3 cm/m2 Aortic Valve Name Value Normal AV Doppler AV Peak Velocity 95 cm/s AV Peak Gradient 4 mmHg AV Mean Gradient 2 mmHg AV VTI 13 cm AV Area (Cont Eq VTI) 4.5 cm2 >=3.0 AV Area (Cont Eq Alhaji) 4.1 cm2 AV DI (Alhaji) 0.84 AV Regurgitation 2D LVOT Area 4.8 cm2 Ventricles Name Value Normal LV Dimensions 2D/MM IVS Diastolic Thickness (2D) 0.9 cm 0.6-1.0 LVID Diastole (2D) 5.5 cm 4.2-5.8 LVIW Diastolic Thickness (2D) 1.0 cm 0.6-1.0 LVID Systole (2D) 3.1 cm 2.5-4.0 LVOT Diameter 2.5 cm LV Mass (2D Cubed) 200.36 g 88.00-224.00 LV Mass Index (2D Cubed) 87 g/m2 49-115 Relative Wall Thickness (2D) 0.35 <=0.42 LV Fractional Shortening/Ejection Fraction 2D/MM LV Fractional Shortening (2D) 43 % 25-43 LV EF (2D Teichholz) 74 % LV Diastolic Volume (4C MOD) 88 ml LV EF (4C MOD) 59 % LV Diastolic Volume (2C MOD) 88 ml LV EF (2C MOD) 60 % LV Diastolic Volume (BP MOD) 91 ml 62-150 LV Diastolic Volume Index (BP MOD) 39 ml/m2 34-74 LV Systolic Volume (BP MOD) 36 ml 21-61 LV Systolic Volume Index (BP MOD) 16 ml/m2 11-31 LV EF (BP MOD) 60 % 52-72 LV Diastolic Length (4C) 7.4 cm LV Systolic Length (4C) 5.1 cm LV Stroke Volume (4C MOD) 52 ml Atria Name Value Normal LA Dimensions LA Dimension (MM) 5.4 cm 3.0-4.0 LA Volume (4C A-L) 95 ml LA Volume (BP A-L) 83 ml RA Dimensions RA Area (4C) 20.7 cm2 <=18.0 Report Signatures
--- OUTSIDE RECORDS SUMMARY | 2025-04-29 15:22 | XMS_ITS | Clinical Summary ---
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
--- OUTSIDE RECORDS SUMMARY | 2025-04-29 15:22 | XMS_ITS | Data Portability ---
Author Organization [facility] OFFICE Address [address] [place] [address] Care Team Providers Care [employer] Consultant Name Role Phone JOAN TELLO Primary Care Provider [phone] Assessment Encounter Date Assessment Date Assessment LastModified [...] 50 mg tablet,e xtended release 2022 023 [facility]93126, [address], [place], [id number], 3 18:23:15 Xarelto 20 mg tablet 2020 021 [facility] #35281, [address], [place], [address], 1 13:03:44 furosemi de 40 mg tablet 2019 020 [facility], [address], [place], [id number], 0 15:47:14 aspirin 325 mg tablet 2019 020 [facility] #37536, [address], [place], [id number], 3 16:34:26 Cardizem CD 240 mg capsule, extended release 2019 INTERFACE [facility] #26737, [address], [place], [id number], 0 15:47:17 carvedil ol 6.25 mg tablet 2019 [facility] #99637, [address], [place], [id number], 3 16:34:23 Digox 250 mcg (0.25 mg) tablet 2019 INTERFACE [facility] #05868, [address], [place], [id number], 0 15:47:14 simvasta tin 40 mg tablet 2019 INTERFACE [facility] #58586, [address], [place], [id number], 0 15:47:14 aspirin 325 mg tablet 2019 [facility] #28903, [address], [place], [id number], 3 16:34:26 carvedil ol 6.25 mg tablet 2019 020 [facility] #10893, [address], [place], [id number], 3 16:34:23 Digox 250 mcg (0.25 mg) tablet 2019 [facility]FACE [facility]001, [address], [place], [id number], 0 12:27:53 Cardizem CD 240 mg capsule, extended release 2019 020 INTERFACE [facility] #58310, [address], [place], [id number], 0 12:27:51 simvasta tin 40 mg tablet 2019 020 INTERFACE [facility] #18552, [address], [place], [id number], 0 12:27:51 furosemi de 40 mg tablet 2019 020 INTERFACE [facility] #24809, [address], [place], [id number], 0 12:27:53 potassiu m chloride ER 10 mEq tablet,e xtended release 2019 020 INTERFACE [facility] #99731, [address], [place], [id number], 0 12:27:54 Patient TargetsNo targets recorded. Patient Instructions Encounter Date Encounter Id Patient Instructions Last Modified By Organization Details Last Modified Time 07/15/2019 [id number] Exercise advised. Low cholesterol diet advised. Low sodium diet advised. Not available 07/15/2019 12:12:37 Scribed by Tram [email or web address] Not available 07/15/2019 12:12:29 08/27/2019 [id number] Weight loss 20 pounds Exercise advised Low cholesterol diet advised Low sodium diet advised. [email or web address] Not available 08/27/2019 14:20:19 This document was scribed by DENY Brenneralli Not available 08/27/2019 14:20:26 09/21/2022 [id number] Weight loss 20 pounds Exercise advised Low [...] diogr am No observ ation record ed. [email or web address] Not Available 2019 15:43:19 08/27/19 20 08/04/2019 XR, chest , 1 view No observ ation record ed. [email or web address] Not Available 08/26 16:18:28 11/26/19 21 11/19/2020 elect rocar diogr am No observ ation record ed. [email or web address] Not Available 11/25 11:32:25 07/10/19 23 06/27/2022 [facility] rocar diogr am No observ ation record ed. [email or web address] Not Available 2022 10:48:57 09/30/19 23 09/18/2022 , echoc ardio gram No observ ation record ed. [email or web address] Not Available 2022 12:46:06 Result Notes None recorded. Problems Name Problem SNOMED Code Status Onset Date Resolution Date Notes Provider Name and Address Organization Details Recorded Time Palpitations 85153404 Active 2015 Not Available [facility] 4 15:52:41 Paroxysmal atrial fibrillation 066045410 Active 2015 Not Available [facility] 4 15:52:41 Obstructive sleep apnea syndrome 37704460 Active 2015 not on CPAP ( only O2 at night) Not Available [facility] 4 15:52:41 Diabetes mellitus 91292393 Active 2015 Not Available [facility] 4 15:52:41 Congestive heart failure 02404021 Active 2015 Not Available [facility] 4 15:52:41 Hypersomnia 62466138 Active 2015 Not Available [facility] 4 15:52:41 Chronic obstructive pulmonary disease 32453869 Active 2015 Not Available [facility] 4 15:52:40 Asthma 414085640 Active 2015 Not Available [facility] 4 15:52:41 Gastroesophag eal reflux disease 961797632 Active 2015 Not Available [facility] 4 15:52:41 Morbid obesity 261883959 Active 2015 Not Available [facility] 4 15:52:41 History of obesity 051658027 Active 2016 Not Available [facility] 4 15:52:40 Edema 622189838 Active 2016 Not Available [facility] 4 15:52:41 Cardiac arrhythmia 143921142 Active 2016 Not Available [facility] 4 15:52:41 Acute anoxic encephalopath y 94639756 Active 2016 Not Available [facility] 4 15:52:41 Acute hypercapnic respiratory failure 368270085 Active 2016 Not Available [facility] 4 15:52:41 Community acquired pneumonia 121874950 Active 2016 Not Available [facility] 4 15:52:41 Benign essential hypertension 8631705 Active 2017 Not Available [facility] 4 15:52:40 Dyslipidemia 733118533 Active 2018 Not Available [facility] 4 15:52:41 Dyspnea on exertion 18545867 Active 2018 Not Available [facility] 4 15:52:41 Notes:Fracture of right hand ( secondary to lose of consciousnes ) (10/07) Problem Notes None recorded. Procedures Surgical History Date Name Laterality Status Provider Name and Address Organization Details Recorded Time Tonsillectomy/Alexia noidectomy completed [facility] 10/18/2015 15:27:42 Appendectomy completed [facility] 10/18/2015 15:27:49 Orthopedic Surgery completed [facility] 10/18/2015 15:27:59 Imaging Results None recorded. Procedure Notes None recorded. Medical Equipment None Reported. Allergies Allergen ID Allergen Name Allergen Category Reaction Reaction Severity Criticality Documentation Date Start Date Code Code System Note Provider Name and Address Organization Details Recorded Time 3988 lidocaine medicatio n facial swelling severe Not available 09/11/2016 6387 [facility] [place] 7 16:58:29 Medications Name Sig Start Date [...] mass index (BMI) Body weight Oxygen saturation Heart rate Systolic And Diastolic Provider Name and Address Organization Details Last Updated DateTime 3 182.88 cm 40 kg/m2 685199. 47 g 94 % 81 /min 104/72 mm[Hg] JAYLA PRASAD [facility] 3 17:49:45 Date Recorded Body height Body mass index (BMI) Body weight Heart rate Oxygen saturation Systolic And Diastolic Provider Name and Address Organization Details Last Updated DateTime 0 182.88 cm 44.8 kg/m2 399882. 48 g 70 /min 90 % 130/90 mm[Hg] SIN RYDER [facility] [place] 0 11:57:43 Date Recorded Body height Heart rate Oxygen saturation Systolic And Diastolic Provider Name and Address Organization Details Last Updated DateTime 08/27/2019 182.88 cm 100 /min 90 % 126/86 mm[Hg] My Perera [facility] [place] 08/27/2019 14:05:28 Date Recorded Body height Body mass index (BMI) Body weight Heart rate Respiratory rate Oxygen saturation Systolic And Diastolic Provider Name and Address Organization Details Last Updated DateTime 3 182.88 cm 38.4 kg/m2 943451. 64 g 77 /min 16 /min 98 % 122/84 mm[Hg] Augie Salgado [facility] [place] 3 16:01:01 Date Recorded Body weight Oxygen saturation Heart rate Systolic And Diastolic Provider Name and Address Organization Details Last Updated DateTime 11/19/2020 206205.63 g 94 % 110 /min 122/67 mm[Hg] SANTO DOUGLAS [facility] [place] 11/19/2020 12:33:20 Social History Question Answer Notes LastModified by Syncbak Details LastModified Time Tobacco Smoking Status Former Smoker Debra stern [facility] [place] 10/18/2015 15:34:26 Which Illicit Or Recreational Drugs Have You Used? None Information not available 08/09/2019 What Was The Date Of Your Most Recent Tobacco Screening? 06/17/2018 Information not available 12/19/2018 Sex: Unknown Functional Status Question Answer Note LastModified by Syncbak Details LastModified Time Do you or have [...] Codes Diagnosis Note 5510 Arsenio Amaya MD [place] OFFICE [address] [place] [address] 03/13/2016 16:20:46 03/14/2016 10:31:22 Benign essential hypertension 5458546 I10 with fair control Paroxysmal atrial fibrillation 727899633 I48.0 Now in NSR. On Full dose ASA Obstructiv e sleep apnea syndrome 16496364 G47.33 Will need Cpap [id number] Arsenio Amaya MD [place] OFFICE [address] [place] [address] 09/11/2016 15:55:04 09/12/2016 09:58:35 Chronic obstructive pulmonary disease 49787310 J44.9 Benign ess ential hypertension 5815686 I10 with fair control Paroxysmal atrial fibrillation 438800018 I48.0 Now in NSR. On Full dose ASA Obstructiv e sleep apnea syndrome 30233559 G47.33 Will need Cpap Hypertensive disorder 38 909452 I10 Congestive heart failure 62775655 I50.9 Palpitations 68425557 R0 0.2 89036 [facility] [address] [place] [address] 06/17/2018 12:11:07 06/17/2018 13:51:43 Paroxysmal atrial fibrillation 270712953 I48.0 A-fib today wth RVR at 103 bpm.Will anticoagul ate with Eliquis. Continue Coreg and Cardizem. Has normal LV systolic function. He needs to be on Coumadin, but he had bleeding from that. Obstructiv e sleep apnea syndrome 61130610 G47.33 Will need Cpap. F/u with Dr. Goodman. Needs repeat sleep study. Chronic ob structive pulmonary disease 23816281 J44.[address] Goodman. Benign ess ential hypertension 3154598 I10 with fair control. Continue current regimen. Needs medication compliance . Diabetes mellitus 278059 09 E11.9 Borderline . Treatment and evaluation by primary care doctor. Discussed importance of adequate glycemic control to minimize cardiovasc ular disease progressio n. A1C goal of < 7% for type 2 DM Dyslipidemia 358803462 E 78.5 Needs to keep LDL less than 70, and HDL more than 40 Will get lipid profile results from PCP Congestive heart failure 34677960 I50.9 HF-pEFHad ECHO 05/13/18 showing normal LV size and functionCo ntinue lasix with daily compliance . Dyspnea on exertion 6084 5006 R06.09 Multifacto rial. Could be angina equivalent . Will obtain Lexiscan Myoview Stress Test to look for any ischemia. Patient cannot walk. Has a high Mico Risk score. Has Known CAD and/or CAD risk equivalent . Continue maximal [place] [address] MD Tahira Schaeffer Office [address] [place] [facility] [place] [address] 07/17/2018 15:25:46 07/17/2018 16:24:37 Dyspnea on exertion 37759363 R06.09 Multifacto rial. Could be angina equivalent . Will obtain Lexiscan Myoview Stress Test to look for any ischemia. Patient cannot walk. Has a high Mico Risk score. Has Known CAD and/or CAD risk equivalent . Continue maximal medical treatment and risk factor modificati on Chronic ob structive pulmonary disease 34237842 J44.[address] Goodman. Paroxysmal atrial fibrillation 736976930 I48.0 A-fib today. HR is well controlled on Cardizem. Continue full-dose ASA. Hyperlipidemia 06884887 E78.5 Benign ess ential hypertension 9566103 I10 with fair control. Continue current regimen. Needs medication compliance . Dyslipidemia 904021786 E 78.5 Needs to keep LDL less than 70, and HDL more than 40 Will get lipid profile results from PCP Diabetes mellitus 271898 09 E11.9 Borderline . Treatment and evaluation by primary care doctor. Discussed importance of adequate glycemic control to minimize cardiovasc ular disease progressio n. A1C goal of < 7% for type 2 DM Obstructiv e sleep apnea syndrome 98220650 G47.33 Will need Cpap. F/u with Dr. Goodman. Needs repeat sleep study. Chronic di astolic heart failure 948068652 I50.32 Had echo 05/13/18 ECHO: E/E prime ratio is 8-15 which is in the indetermin ate zone. Left ventricula r systolic function appears to be normal. No obvious regional wall motion abnormalit ies noted. The study was technicall y difficult. Congestive heart failure 59600667 I50.9 72046 Arsenio Amaya MD [place] OFF[facility] [place] [address] 01/21/2019 14:37:56 05/14/2019 11:21:11 Congestive heart failure 97145121 I50.9 Euvolemic. Low salt diet. Hyperlipidemia 92797127 E78.5 Needs to keep LDL less than 70, and HDL more than 40 Will get fasting lipids for follow up04/2017 TC 151, HDL 33, TR 101, LDL 98 Essential hypertension 33667464 I10 Controlled . Paroxysmal atrial fibrillation 470722805 I48.0 A-fib today. HR is well controlled on Cardizem. Continue full-dose ASA. Dizziness 662975005 R42 Likely due to AFIB. Dyspnea on exertion 6084 5006 R06.09 Multifacto rial. Could be angina equivalent .Dobutamin e Myoview stress test, pt can not walk. Has known coronary artery disease, with atypical symptoms now. Rest imaging was done 07/2018. WIll do stress imaging only.Terrance nue [place] [address] Arsenio Amaya MD [place] OFF[facility] [place] [address] 07/15/2019 11:01:00 08/04/2019 18:30:17 Dyspnea on exertion 67589986 R06.09 Multifacto rial. Could be angina equivalent .03/12/19 Negative Dobutamine stress test for ischemia. Normal LV systolic function. LVEF 61 %Rest imaging was done 07/2018. WIll do stress imaging only.Terrance nurodolfo maximal medical treatment and risk factor modificati on Congestive heart failure 95386979 I50.9 Euvolemic. Low salt diet. Hyperlipidemia 20018036 E78.5 Needs to keep LDL less than 70, and HDL more than 40 Will get fasting lipids for follow up04/2017 TC 151, HDL 33, TR 101, LDL 98 Essential hypertension 30185465 I10 Controlled . Paroxysmal atrial fibrillation 258386128 I48.0 A-fib today. HR is well controlled on Cardizem. Continue full-dose ASA.pt. states that he is currently taking ASA 325 mg BID. consider albation if symptoms persist Dizziness 115279930 R42 Likely due to AFIB. 99783 Arsenio Amaya MD [facility] Office [address] [place] [address] 08/27/2019 13:42:23 08/27/2019 14:45:48 Dyspnea on exertion 87400589 R06.09 Stable. 03/12/19 DOBUTAMINE : Negative Dobutamine Stress test for ischemia. Normal LV systolic function. LVEF 61% Hyperlipidemia 56351275 E78.5 Needs to keep LDL less than 70, and HDL more than 40 Will get fasting lipids for follow up04/2017 TC 151, HDL 33, TR 101, LDL 98 Essential hypertension 75760697 I10 Controlled . Paroxysmal atrial fibrillation 227753272 I48.0 Recent admission with bradycardi a. Now he is back on Cardizem, Digoxin and Coreg. CHADSVASC score 3. Consider starting AC. Currently on full dose ASA Obstructiv e sleep apnea syndrome 88568722 G47.33 On BIPAP. Edema of l ower extremity 599079782 R60.0 stable. Continue lasix, leg elevation, low salt diet. 50287 Arsenio Amaya MD [place] [facility] [address] [place] [address] 11/19/2020 12:24:06 11/19/2020 13:03:45 Paroxysmal atrial fibrillation 043612165 I48.0 Recent admission with bradycardi a. Now he is back on Cardizem, Digoxin and Coreg. CHADSVASC score 3.Stop ASAStart Xarelto Dyspnea on exertion 6084 5006 R06.09 Stable. Obtain echo to evaluate for structural /functiona l disease. 03/12/19 DOBUTAMINE : Negative Dobutamine Stress test for ischemia. Normal LV systolic function. LVEF 61% Hyperlipidemia 08077415 E78.5 Needs to keep LDL less than 70, and HDL more than 40 Will get fasting lipids for follow up04/2017 TC 151, HDL 33, TR 101, LDL 98 Essential hypertension 29775554 I10 Controlled . Obstructiv e sleep apnea syndrome 88083970 G47.33 On BIPAP. Edema of l ower extremity 549061377 R60.0 stable. Continue lasix, leg elevation, low salt diet. 02433 Arsenio Amaya MD [place] [facility] [address] [place] [address] 06/27/2022 17:20:25 06/27/2022 18:24:45 Paroxysmal atrial fibrillation 655798165 I48.0 Recent admission with bradycardi a. Now [...] Normal LV systolic function. LVEF 61% Hyperlipidemia 60503331 E78.5 Needs to keep LDL less than 70, and HDL more than 40 Will get fasting lipids for follow up04/2017 TC 151, HDL 33, TR 101, LDL 98 Essential hypertension 03229298 I10 Controlled . Obstructiv e sleep apnea syndrome 89870770 G47.33 On BIPAP. Edema of l ower extremity 755303017 R60.0 increased to twice daily lasix 40 mg for one week then go back to 40 mg daily, leg elevation, low salt diet. 62964 Arsenio Amaya MD [place] [facility] [place] [address] 09/21/2022 15:55:44 09/21/2022 16:40:03 Paroxysmal atrial fibrillation 666563920 I48.0 Recent admission with bradycardi a. Now he is back on Cardizem, Digoxin and Coreg. CHADSVASC score 3. On Toprol xl 50 mg Dyspnea on exertion 6084 5006 R06.09 Normal Left ventricula r systolic function 03/12/19 DOBUTAMINE : Negative Dobutamine Stress test for ischemia. Normal LV systolic function. LVEF 61% Hyperlipidemia 73044891 E78.5 Needs to keep LDL less than 70, and HDL more than 40 Will get fasting lipids for follow up04/2017 TC 151, HDL 33, TR 101, LDL 98 Essential hypertension 45451184 I10 Controlled . Obstructiv e sleep apnea syndrome 08199876 G47.33 On BIPAP. Edema of l ower extremity 184111884 R60.0 On Lasix 40 mg daily, leg elevation, low salt diet. Health Concerns Section Related Observation LastModified by Organization Detai ls LastModified Time None Recorded Concern Status LastModified by Organization Details LastModified Time None Recorded Advance Directives Directive None Recorded Payers Insurance Date Sequence Insurance Name Policy Number Policy Leon Covered Member ID Leon Member ID Guarantor Name 09/21/2022 1 [facility] ON OR AFTER 11/25/20 (MEDICAID REPLACEMENT - HMO) Mann Alfaro Lemp [id number] Mann Alfaro Lemp 06/12/2022 1 [facility] PRIOR TO 11/25/2020 (MEDICAID REPLACEMENT - HMO) Mann Alfaro Lemp [id number] Mann Alfaro Lemp Notes Date Note Type Note Provider Name and Address Organization Details Recorded Time 07/15/2019 text/html 07/15/19 CC: a-fib 58 year-old white man with paroxysmal atrial [...] nausea and vomiting. He was at [facility] In April after a syncopal event [...] leads. Poor R progression in chest leads. [facility] EKG 06/17/18: Atrial fibrilation with nonspecific T [...] with mild vascular congestion. Arsenio Amaya MD [address] [place], [address], [facility] 08/04/2019 18:30:16 [...] here for hospital follow-up. He was in [facility] in 08/04/19 because of near [...] effects from medications. He was at [facility] In April after a syncopal event [...] leads. Poor R progression in chest leads. [facility] EKG 06/17/18: Atrial fibrilation with nonspecific T [...] Cardiomegaly with mild vascular congestion. Mirta Esposito [facility], [place] - [facility] 08/27/2019 15:47:16 11/19/2020 [...] at this time. Previously, He was in [facility] in 08/04/19 because of near [...] effects from medications. He was at [facility] In April after a syncopal event [...] leads. Poor R progression in chest leads. [facility] EKG 06/17/18: Atrial fibrilation with nonspecific T [...] Cardiomegaly with mild vascular congestion. Daria [place], [place] - [facility] 11/19/2020 13:09:09 06/27/2022 [...] takes simvastatin 40 mg. Previously:He was in [facility] in 08/04/19 because of near [...] 4L cont O2. He was at [facility] In April after a syncopal event [...] leads. Poor R progression in chest leads. [facility] EKG 06/17/18: Atrial fibrilation with nonspecific T [...] is similar. Cardiomegaly with mild vascular congestion. DINA Martini - [facility] 06/27/2022 18:23:12 09/21/2022 text/html 09/21/22CC : Cardiac follow up, dyspnea on [id number] year-old white man with chronic atrial fibrillation, [...] having more a fib. He was in [facility] in 08/04/19 because of near syncope, [...] 4L cont O2. He was at [facility] In April after a syncopal event [...] leads. Poor R progression in chest leads. [facility] EKG 06/17/18: Atrial fibrilation with nonspecific T [...] vascular congestion. Arsenio Amaya MD [address] [place], [address], [facility] 09/21/2022 16:34:44
--- OUTSIDE RECORDS SUMMARY | 2025-04-29 15:23 | XMS_ITS | Clinical Summary ---
Author Organization [place] [id number] [facility] Address [address] [place] [address] Care Team Providers Care Die Trimmer Name Role Phone No, Physician Unavailable Vangie Valentine MD Primary Care Provider [phone] Allergies Active Allergy Reactions Criticality Noted Date [...] Comments Diabetes Neuropathy Hypertension A-fib ([facility]) CHF (congestive heart failure) ([facility]) Family History Medical History Relation Name [...] PELVIS W CONTRAST Routine 05/13/2018 12:00 AM GENERATION MANAGER from Last 3 Months or Most Recently Relevant to Health Maintenance Results * CT Abdomen Pelvis W Contrast (05/13/2018 12:00 AM GENERATION MANAGER) Anatomical Region Laterality Modality Body N/A Computed Tomogra phy 05/13/2018 Impressions 05/13/2018 2:50 AM GENERATION MANAGER No acute findings in the abdomen or pelvis. THIS IS AN ELECTRONICALLY VERIFIED FINAL REPORT 05/13/2018 2:47 AM - Electronically signed by Mario Garcia M.D. RW T: Report ID: [id number] Reading Location: [id number] [EOD] Narrative 05/13/2018 2:50 AM GENERATION MANAGER EXAM DESCRIPTION: CT Abd/Pelvis W IV [...] Mario Garcia M.D. RW T: Report ID: [id number] Reading Location: [place] [id number] [EOD] Richardson Kilgore NP IMG CT PROCEDURES Final R esult from Last 3 Months or Most Recently Relevant to Health Maintenance Insurance [place] [address] [address] IDPA [facility] MED[facility] [employer] Address: [address] [address] [place] [address] Care Teams Die Trimmer Relationship Specialty Start Date End Date Vangie Valentine MD [address] [place] [address] PCP - General Internal Medicine 06/11/19 No, Physician 05/18/18
--- OUTSIDE RECORDS SUMMARY | 2025-04-29 15:23 | XMS_ITS | Data Portability ---
Author Organization [facility] Address [address] [place] [address] Care Team Providers Care Monotype Mechanic Name Role Phone VANGIE TELLO Primary Care Provider Assessment No assessment recorded. Plan of Treatment Reminders Order Date Submit Date Provider Last Modified By Organization Details Last Modified Time Details Appointments None recorded. Lab HbA1c (hemoglob in A1c), blood 2022 023 [facility] In-Office Order, Internal Use Only DO Not Attach Compendium DO Not Attach Compendium, Do Not Delete/merge, [id number] 3 17:30:48 HbA1c (hemoglob in A1c), blood 2022 023 [facility], [address], [address], [place], [address], 3 18:19:31 microalbu min/creat inine, mass ratio, urine 2022 023 [facility], [address], [address], [place], [address], 3 18:23:48 CMP, serum or plasma 2022 023 [facility], 20[address], [address], [place], [address], 3 18:23:48 lipid panel, serum [address] [facility], [address], [address], [place], [address], 3 18:23:48 noninvasi ve colorecta l cancer DNA + occult blood screening , QL, stool 2022 023 [facility], [address], [address], [place], [address], 3 08:11:02 noninvasi ve colorecta l cancer DNA + occult blood screening , QL, stool 2022 023 [facility], [address], [address], [place], [address], 4 09:04:56 HbA1c (hemoglob in A1c), blood 2022 023 [facility] In-Office Order, Internal Use Only DO Not Attach Compendium DO Not Attach Compendium, Do Not Delete/merge, [id number] 3 16:28:51 Referral cardiolog ist referral - Please call him for appointme nt, thanks! [address] Cardiology, [address] [place], [address], 4 05:08:48 otolaryng ologist referral - Please call patient for appointme nt,thanks ! [address] - Otolaryngology (Ent), [address] [facility][Note 3], [address], [place], [address], 4 05:08:47 general surgeon referral - General surgery for hernia of abdomen, please call patient for appointme nt,thanks ! [address] General Surgery, [address], [facility] [address], [place], [address], 4 05:08:47 dermatolo gist referral [address] Dermatology, [address] [facility], [place], [address], 4 05:08:46 dermatolo gist referral 2022 023 [email or web address] [facility], [address] [facility], [place], [address], 3 10:12:31 chiroprac tor referral - Please call patient for appointme nt, thanks! 2022 023 [email or web address] [place], [address], [place], [address], 3 09:20:00 Procedures pulmonary stress test, simple (PROC) 2023 024 [facility] (Cardio Ekg), [address], [place], [address], 4 05:01:49 Surgeries None recorded. Imaging PFT, complete - W/ Post Bronchodi lator Spirometr y 2023 024 [facility] (Cardio Ekg), [address], [place], [address], 4 05:01:48 Medication Orders famotidin e 20 mg tablet 2023 024 [facility]30524, [address], [place], [place], [id number], 4 17:25:57 magnesium oxide 400 mg (241.3 mg magnesium ) tablet 2023 024 [facility] #29390, [address] , [place], [place], [id number], 4 17:25:58 Viagra 100 mg tablet 2023 024 [facility] #07542, [address], [place], [place], [id number], 4 17:25:58 gabapenti n 800 mg tablet 2023 024 [facility] #21110, [address], [place], [place], [id number], 4 17:25:57 aspirin 325 mg tablet,de layed release 2023 024 [facility] #83893, [address], [place], [place], [id number], 4 17:25:58 pioglitaz one 45 mg tablet 2023 024 [facility] #99803, [address], [place], [place], [id number], 4 17:25:58 simvastat in 40 mg tablet 2023 024 [facility] #59532, [address] , [place], [place], [id number], 4 17:25:59 albuterol sulfate HFA 90 mcg/actua tion aerosol inhaler 2023 024 [facility] #88006, [address], [place], [place], [id number], 4 17:25:57 ipratropi um 0.5 mg-albute rol 3 mg (2.5 mg base)/3 mL nebulizat ion soln 2023 024 [facility] #63750, [address], [place], [place], [id number], 4 17:25:56 Symbicort 160 mcg-4.5 mcg/actua tion HFA aerosol inhaler 2023 024 [facility] #56456, [address], [place], [place], [id number], 4 17:25:59 carvedilo l 6.25 mg tablet 2023 024 [facility] #31755, [address] , [place], [place], [id number], 4 17:25:55 digoxin 250 mcg (0.25 mg) tablet 2023 024 [facility] #28157, [address] [place], [place], [id number], 4 17:25:55 diltiazem CD 240 mg capsule,e xtended release 24 hr 2023 024 [facility] #32518, [address] , [place], [place], [id number], 4 17:25:57 furosemid e 40 mg tablet 2023 024 [facility] #04318, [address] [place], [place], [id number], 4 17:25:58 potassium chloride ER 10 mEq tablet,ex tended release 2023 024 [facility] #31952, [address] [place], [place], [id number], 4 17:25:56 magnesium oxide 400 mg (241.3 mg magnesium ) tablet 2022 023 [facility] #89846, [address] [place], [place], [id number], 3 17:30:58 pioglitaz one 45 mg tablet 2022 [facility] #83652, [address], [place], [place], [id number], 17:31:00 ipratropi um 0.5 mg-albute rol 3 mg (2.5 mg base)/3 mL nebulizat ion soln 2022 [facility] #39457, [address], [place], [place], [id number], 17:30:59 Symbicort 160 mcg-4.5 mcg/actua tion HFA aerosol inhaler 2022 [facility] #88490, [address], [place], [place], [id number], 17:30:57 ibuprofen 800 mg tablet 2022 023 [facility] #59564, [address], [place], [place], [id number], 3 17:30:59 Viagra 100 mg tablet 2022 023 [facility] #23975, [address], [place], [id number], 3 17:19:55 gabapenti n 800 mg tablet 2022 023 [facility] #87995, [address], [place], [place], [id number], 17:30:57 simvastat in 40 mg tablet 2022 023 [facility] #10485, [address], [place], [place], [id number], 3 17:20:01 potassium chloride ER 10 mEq tablet,ex tended release 2022 023 [facility] #73047, [address], [place], [place], [id number], 3 17:19:58 Zithromax Z-Mik 250 mg tablet 2022 023 [facility] #89303, [address], [place], [place], [id number], 3 19:09:21 magnesium oxide 400 mg (241.3 mg magnesium ) tablet 2022 023 [facility] #83918, [address], [place], [id number], 3 18:23:47 famotidin e 20 mg tablet 2022 023 [facility] #45410, [address], [place], [id number], 3 18:23:48 mupirocin 2 % topical ointment 2022 023 [facility] #64050, [address], [place], [id number], 3 18:23:46 aspirin 325 mg tablet,de layed release 2022 023 [facility] #11291, [address], [place], [id number], 3 18:23:50 pioglitaz one 45 mg tablet 2022 023 [facility] #77419, [address], [place], [id number], 3 18:23:47 ipratropi um 0.5 mg-albute rol 3 mg (2.5 mg base)/3 mL nebulizat ion soln 2022 023 [facility] #98702, [address], [place], [id number], 3 18:23:50 EpiPen 2-Mik 0.3 mg/0.3 mL injection , auto-inje ctor 2022 023 [facility] #92718, [address], [place], [id number], 3 18:23:49 ibuprofen 800 mg tablet 2022 023 [facility] #86900, [address], [place], [id number], 3 18:23:48 gabapenti n 800 mg tablet 2022 023 [facility] #65602, [address], [place], [id number], 3 18:23:49 Viagra 100 mg tablet 2022 023 [facility], [address] [place] [address], [id number], 4 16:53:25 simvastat in 40 mg tablet 2022 023 [facility] #11242, [address], [place], [id number], 3 18:23:46 carvedilo l 6.25 mg tablet 2022 023 [facility] #67915, [address], [place], [id number], 3 18:23:49 digoxin 250 mcg (0.25 mg) tablet 2022 023 [facility] #24674, [address], [place], [id number], 3 18:23:47 diltiazem CD 240 mg capsule,e xtended release 24 hr 2022 023 [facility] #02836, [address], [place], [id number], 3 18:23:50 furosemid e 40 mg tablet 2022 023 [facility] #65358, [address], [place], [id number], 3 18:23:51 potassium chloride ER 10 mEq tablet,ex tended release 2022 023 [facility] #30151, [address], [place], [id number], 3 18:23:49 Viagra 100 mg tablet 2022 023 [facility] #89210, [address], [place], [id number], 3 16:48:21 hydrocodo ne 10 mg-acetam inophen 325 mg tablet 2022 023 [facility] #74742, [address], [place], [id number], 3 17:00:31 pioglitaz one 30 mg tablet 2022 023 [facility] #81181, [address], [place], [id number], 17:22:06 simvastat in 40 mg tablet 2022 023 [facility] #82101, [address], [place], [id number], 16:48:21 Patient TargetsNo targets recorded. Patient Instructions Encounter Date Encounter Id Patient Instructions Last Modified By Organization Details Last Modified Time 06/21/2022 [id number] rash: care instructions [facility] Not available 06/21/2022 16:28:52 healthy upper back: exercises [facility] Not available 06/21/2022 16:28:52 heart failure: care instructions [facility] Not available 06/21/2022 16:48:06 learning about heart failure [facility] Not available 06/21/2022 16:48:06 02/07/2023 [id number] learning about type 2 diabetes [facility] Not available 02/07/2023 18:23:32 type 2 diabetes: care instructions [facility] Not available 02/07/2023 18:23:33 A healthy lifestyle: care instructions [facility] Not available 02/07/2023 18:23:33 heart failure: care instructions [facility] Not available 02/07/2023 18:23:33 learning about heart failure [facility] Not available 02/07/2023 18:23:33 rash: care instructions [facility] Not available 02/07/2023 18:23:33 04/11/2023 [id number] influenza (flu) vaccine: [facility] 04/11/2023 18:37:40 hernia: care instructions [facility] Not available 04/11/2023 16:59:50 07/25/2023 [id number] hernia: care instructions [facility] Not available 07/25/2023 17:41:58 07/26/2023 [id number] sleep apnea: car e instructions ajamous Not [...] [facility], Encounter Date: 06/21/2022 Stockroom Supervisor Referral for E ruption Referring Physician: Vangie Tello [facility], Encounter Date: 06/21/2022 Stockroom Supervisor Referral for E ruption Referring Physician: Vangie Tello [facility], Encounter Date: 02/07/2023 General Surgeon Referral for Hernia of anterior abdominal wall General surgery for hernia of abdomen, please call patient for appointment,thanks! Referring Physician: Vangie Tello [facility], Encounter Date: 04/11/2023 Bill Sorter Referral fo r Impacted cerumen in right ear Please call patient for appointment,thanks! Referring Physician: Vangie Tello [facility], Encounter Date: 04/11/2023 Bakery Manager Referral for Ch ronic atrial fibrillation Please [...] Laboratories [address], [place], [address], 06/21/2023 09:04:55 02/09/20 23 02/08/2023 COLOG UARD cologuard result Cancel led - Duplic ate Order not applic able Not Available [facility] [address], [place], [address], 02/08/2023 08:11:02 06/23/19 23 06/23/2022 COLOG UARD cologuard result Cancel led - Duplic ate Order not applic able Not Available [facility] [address], [place], [address], 06/23/2022 11:41:44 05/24/20 22 05/25/2022 DIABE ZORAN PATIE NT EDUCA TION pdf . Not Available [facility] ([facility]) [address] [facility], [place], [address], 05/25/2022 08:14:15 05/24/20 22 05/25/2022 HEMOG LOBIN A1C hemoglobin A1C 5.6 % 4.8-5. 6 Predi abete s: 5.7 - 6.4 Diabe zoran: >6.4 Glyce kai contr ol for adult s with diabe zoran: <7.0 Not Available [facility] ([facility]) [address] [facility], [place], [address], 05/25/2022 08:14:15 05/24/20 22 05/25/2022 MAGNE SIUM magnesium 1.8 mg/dL 1.6-2. 3 Not Available [facility] ([facility]) [address] [facility], [place], [address], 05/25/2022 08:14:16 05/24/20 22 05/25/2022 HBSAG SCREE N HBsAg screen Negati ve negati ve Not Available [facility] ([facility]) [address] [facility], [place], [address], 05/25/2022 08:14:16 05/24/20 22 05/25/2022 HEPAT ITIS B SURF AB QUANT hepatitis B surf Ab quant <3.1 mIU/m L immuni ty>9.9 below low normal Statu s of Immun ity Anti- HBs Level ----- ----- ----- --- ----- ----- ---- Incon siste nt with Immun ity 0.0 - 9.9 Consi stent with Immun ity >9.9 Not Available [facility] ([facility]) [address] [facility], [place], [address], 05/25/2022 08:14:17 05/24/2005/25/2022 PROST ATE-S PECIF IC [...] t be inter prete d as absol otoe-missouria evide nce of the prese nce or absen ce of felipe mendoza se. Not Available [facility] ([facility]) [address] [facility], [place], [address], 05/25/2022 08:14:18 05/24/2005/25/2022 HIV AB/P2 4 AG WITH REFLE X HIV Ab/P24 Ag screen Non Reacti ve nonrea ctive HIV Negat javier HIV-1 /HIV- 2 antib odies and HIV-1 p24 antig en were NOT detec dolly. There is no labor atory evide nce of HIV infec tion. Not Available [facility] ([facility]) [address] [facility], [place], [address], 05/25/2022 08:14:18 06/21/1906/21/2022 HbA1c (hemo globi n A1c), blood HbA1c 5.3% Not Available In-Office Order Internal Use Only DO Not Attach Compendium DO Not Attach Compendium, Do Not Delete/merge, [id number] 06/21/2022 16:21:07 04/11/20 23 04/11/2023 HbA1c (hemo globi n A1c), blood HbA1c 5.5% Not Available In-Office Order Internal Use Only DO Not Attach Compendium DO Not Attach Compendium, Do Not Delete/merge, [id number] 04/11/2023 17:30:33 09/26/19 24 09/24/2023 CPAP downl oad* No observ ation record ed. [facility] ([facility]) [address] [facility] , [place], [address], 10/01/2023 12:01:21 Result Notes None recorded. Problems Name Problem SNOMED Code Status Onset Date Resolution Date Notes Provider Name and Address Organization Details Recorded Time Diabetes mellitus 12426719 Active 2017 Not Available [facility] 4 18:42:20 Chronic congestive heart failure 75484774 Active 2018 Not Available [facility] 4 18:42:20 Upper respiratory infection 75901886 Active 2019 Not Available [facility] 4 18:42:20 Problem Notes None recorded. Procedures Surgical History Date Name Laterality Status Provider Name and Address Organization Details Recorded Time Appendectomy completed Sandro Hernandez MA [facility] 12/18/2016 14:58:41 Imaging Results None recorded. Procedure Notes None recorded. Medical Equipment None Reported. Allergies Allergen ID Allergen Name Allergen Category Reaction Reaction Severity Criticality Documentation Date Start Date Code Code System Note Provider Name and Address Organization Details Recorded Time 491865 glimepiri de medicatio n dizziness Not available Not available 01/16/2022 63578 RxNorm Sandro Hernandez MA null, [place] - [facility] 2 17:20:53 307578 lidocaine medicatio n facial swelling severe Not available 04/28/2025 6387 RxNorm Not Available [facility] - [employer] - prod 5 12:10:35 297209 amoxicill in medicatio n diarrhea Not available low 04/28/20252023 723 RxNorm Not Available [facility] - [employer] Data [employer] - prod 5 12:12:08 Medications Name Sig Start Date Stop Date [...] oral route as directed for 90 days. 02/10/ 2022 03/11 /2022 completed Not Available Not Available Not Available [...] Updated DateTime 3 182.88 cm 40.4 kg/m2 236513. 53 g 93 % 95 /min 126/80 mm[Hg] Anya Kraft MA [facility] 3 15:57:27 Date Recorded Body height Body mass index (BMI) Body weight Heart rate Oxygen saturation Systolic And Diastolic Provider Name and Address Organization Details Last Updated DateTime 4 182.88 cm 39.1 kg/m2 857756. 6 g 91 /min 95 % 142/80 mm[Hg] Taya Bryson MA [facility] 4 16:57:44 Date Recorded Body height Body mass index (BMI) Body weight Body temperature Respiratory rate Oxygen saturation Heart rate Systolic And Diastolic Provider Name and Address Organization Details Last Updated DateTime 4 182.88 cm 39.2 kg/m2 378146. 19 g 98 [degF] 18 /min 96 % 88 /min 124/78 mm[Hg] Eufemia Cali LPN [facility] 4 11:57:42 Date Recorded Body height Body mass index (BMI) Body weight Heart rate Oxygen saturation Systolic And Diastolic Provider Name and Address Organization Details Last Updated DateTime 3 182.88 cm 38.7 kg/m2 867595. 83 g 130 /min 98 % 143/77 mm[Hg] Taya Bryson MA [facility] 3 17:27:13 Date Recorded Body height Body mass index (BMI) Body weight Heart rate Oxygen saturation Systolic And Diastolic Provider Name and Address Organization Details Last Updated DateTime 3 182.88 cm 40.1 kg/m2 716109. 34 g 93 /min 95 % 142/86 mm[Hg] Taya Bryson MA [facility] 3 16:26:09 Social History Question Answer Notes LastModified by Organizat ion Details LastModified Time Tobacco Smoking Status Never Smoker Sandro Hernandez MA null, [facility] 12/18/2016 15:01:06 Do You Have [...] Or The Highest Degree You Have Received? [id number] Information not available 04/11/2023 Are There Any Guns Present In Your Home? No Information not available 11/03/2020 Do You Have A Medical Power Of Gas Meter Prover? No Information not available 07/26/2023 What Was [...] anxious, or unable to sleep at night)? [id number] Information not available 04/11/2023 Family History Relationship [...] Joint, or Bone Problems Y Heart Attack (PA) Y High Blood Pressure Y Kidney or Bladder Problems Y Asthma Y High Cholesterol Y Immunizations Vaccine Type Date Status Note Provider Nam e and Address Organization Details Recorded Time COVID-19, mRNA, LNP-S, PF, 30 mcg/0.3 mL dose 1 completed Not Available [facility] 07/02/2023 18:42:20 SARS-COV-2 (COVID-19) vaccine, UNSPECIFIED 1 completed Not Available [facility] 07/02/2023 18:42:20 Influenza, split virus, quadrivalent, preservative 9 completed Not Available [facility] 06/14/2019 02:38:45 Influenza, split virus, quadrivalent, preservative 0 completed Vj Atkins LPN null, [place] - [facility] 07/03/2019 11:52:46 COVID-19, mRNA, LNP-S, PF, 30 mcg/0.3 mL dose, deep-sucrose 2 completed Holly Peter MA null, [place] [facility] 01/16/2022 15:46:41 Influenza, split virus, quadrivalent, PF 3 completed Vangie Tello MD Attn: Accounting[address] [place], [address], [facility] 04/11/2023 16:53:09 tetanus toxoid, unspecified formulation 7 completed Not Available [facility] 07/02/2023 18:42:20 Past Encounters Encounter ID Performer Location Encounter Start Date Encounter Closed Date Diagnosis/Indication Diagnosis SNOMED-CT Code Diagnosis ICD10 Code Diagnosis IMO Codes Diagnosis Note [id number] Vangie Tello MD [facility] (Adult Med) [address] [place] [phone] 12/18/2016 14:44:41 12/18/2016 16:45:09 Type 2 diabetes mellitus 79217201 E11.40 He can not tolerate the metformin which cause his stomach to be uncomforta ble, diarrhea and cramping. Diabetic p eripheral neuropathy 820450624 E11.40 Body mass index 40+ - severely obese 248598274 Z68.42 Diabetic diet, exercise and lose weight.kannan july to try wellbutrin and naltrexone to lose weight. Chronic ob structive pulmonary disease 70148775 J44.9 History of partial lung collapsed, needs inhaler to breathe. Umbilical hernia 6856916 07 K42.9 Weight loss, will refer to surgeon in the future if his weight goes down. Screening for malignant neoplasm of colon 169838460 Z12.11 He refuses. Screening for malignant neoplasm of prostate 398209326 Z12.5 Coronary atherosclerosis 295413004 I25.83 Under the care of his [facility]ologi [facility] [id number] Vangie Tello MD [facility] (Adult Med) [address] [place] [address] 09/26/2017 12:08:48 09/26/2017 14:02:45 Diabetes mellitus 26032305 E11.40 Metformin messed his GI , Diarrhea. Chronic co ngestive heart failure 10573736 I50.9 Under the care of his cardiologi st. Diabetic p eripheral neuropathy 553572376 E11.40 Exposure t o viral hepatitis 237695847 Z20.5 [id number] Michelle Goodman MD [facility] [address] [place] [address] 06/17/2018 09:49:13 06/18/2018 15:36:46 Pulmonary hypertension 91166569 I27.20 Multifacto rial Dyspnea on exertion 6084 5006 R06.09 Multifacto rial Obstructiv e sleep apnea syndrome 54306869 G47.33 Patient is not on treatment Tolerant non-smoker 8773 9003 Z87.891 Patient has second hand smoking Edema of l ower extremity 685052207 R60.0 Multifacto rial Hypoxemia 438268698 R09. 02 Patient is using O2 at home [id number] Michelle Goodman MD [facility] ts [address] [place] [address] 07/18/2018 11:25:15 07/18/2018 15:15:05 Obstructive sleep apnea syndrome 44572997 G47.33 Patient is not on treatment. His sleep study is not available to me. Dyspnea on exertion 6084 5006 R06.09 Multifacto rial Restrictiv e lung disease 52929578 J98.4 FEV1 36%, FVC 32%, FEV1/FVC 87%, BD-, TLC 43%, DLCO 47%, will add Combivent respimat to his regimen. I will get CXR on the patient. Tolerant non-smoker 8773 9003 Z87.891 Patient has second hand smoking Edema of l ower extremity 192983666 R60.0 Multifacto rial Hypoxemia 701325409 R09. 02 Patient has 6MWT showed he needs O2 at 2L/M. Will order portable concentrat or. Patient is using O2 at home. I will check D dimer. History of exposure to second hand smoke 803798648 Z77.22 Patient has second hand smoking. Moderate p ersistent asthma 033457523 J45.40 He uses Ventolin but having significan t SOB. [id number] [facility] [address] [place] [phone] 07/22/2018 12:36:17 07/23/2018 10:17:25 Diabetes mellitus 56829338 E11.40 Metformin messed his GI , Diarrhea. Type 2 janusz betes mellitus 74301781 E11.40 He can not tolerate the metformin which cause his stomach to be uncomforta ble, diarrhea and cramping. Secondary peripheral neuropathy 276255 G63 Can not walk since being D/C from ICU for respirator y failure. Asthma 013896777 J45.90 9 Under the care of his printing specialist . Chronic co ngestive heart failure 66551150 I50.9 Under the care of his cardiologi st. Chronic at rial fibrillation 321849769 I48.2 Under the care of his cardiologi st. 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 Has claustroph obia, will give one ativan prior to CAT scan. [id number] Vangie [facility] MD [facility] [facility] (Adult Med) [address] [place] [address] 10/02/2018 15:51:24 10/03/2018 15:11:25 Type 2 diabetes mellitus 68071233 E11.40 He can not tolerate the metformin which cause his stomach to be uncomforta ble, diarrhea and cramping. Diabetic p eripheral neuropathy 168529176 E11.40 Discussed with patient, wanting up grade dose gabapentin . Chronic ob structive pulmonary disease 44406876 J44.9 History of partial lung collapsed, needs inhaler to breathe. Second hand smoker in the past. Tinea corporis 84619038 B35.4 [id number] Michelle Goodman MD [facility] [address] [address] 10/24/2018 11:35:36 10/25/2018 14:37:28 Obstructive sleep apnea syndrome 11397708 G47.33 Patient is not on treatment. 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 02 Patient has 6MWT showed he needs O2 at 2L/M. Will order portable concentrat or. Patient is using O2 at home. I will check D dimer., homocystin e Moderate p ersistent asthma 234225687 J45.40 He uses Ventolin HFA but having significan t SOB. History of exposure to second hand smoke 618336754 Z77.22 Patient has second hand smoking. Diabetic p eripheral neuropathy 939983095 E11.40 On Gabapentin [id number] Vangie Tello MD [facility] (Adult Med) [facility] [place] [address] 11/06/2018 15:22:10 11/06/2018 16:58:03 Type 2 diabetes mellitus 92275004 E11.40 He can not tolerate the metformin which cause his stomach to be uncomforta ble, diarrhea and cramping. Diabetic p eripheral neuropathy 346089314 E11.40 Discussed with patient, wanting up grade dose gabapentin . Chronic back pain 805431 002 M54.16 Stable. On gabapentin . Hernia of anterior abdominal wall 843147859 K43.9 Discussed with patient, agreed for the CAT scan. Has claustroph obia, will give one ativan prior to CAT scan. Chronic ob structive pulmonary disease 61918368 J44.9 History of partial lung collapsed, needs inhaler to breathe. Second hand smoker in the past. Wanting Alph-1 antitrypsi n screening. Diabetes mellitus 495747 09 E11.40 Metformin messed his GI , Diarrhea. Dyslipidem ia due to type 2 diabetes mellitus 7209934539 02 E78.5 Disorder of skin 0208074 [address], refill the cream. [id number] SUMEET MCKEON MD [facility] [address] [place] [address] 11/22/2018 11:15:02 11/25/2018 11:43:00 Hernia of anterior abdominal wall 276828720 K43.9 58M morbidly obese with anterior abdominal wall hernia. The optimal surgery wound include bariatrics and hernia repair. The patient has multiple comorbidit ies including COPD, on home oxygen, CHF and DM. I will refer him to a tertiary facility that can manage this complicate d patient. Morbid obesity 303008581 E66.01 [id number] Vangie Tello MD [facility] (Adult Med) [address] [place] [address] 12/04/2018 11:42:11 12/04/2018 12:36:51 Nephropathy screening 814000800 Z13.89 Discussed with patient that his urine stik test is clean, but will send for culture as back up. Acute low back pain 2788 90648 M54.5 Discussed with patient, will try diclofenac ointment and PRN for ibuprofen. [id number] Michelle Goodman MD [facility] [address] [place] [address] 03/06/2019 10:38:24 03/06/2019 16:02:09 Obstructive sleep apnea syndrome 68248342 G47.33 Patient is not on treatment. AHI 24/hour, patient required BIPAp 18/8 with O2 4L/m into nasal mask. I will order Hypoxemia 650549819 R09. 02 Patient has 6MWT showed he needs O2 at 2L/M. Will order portable concentrat or. Patient is using O2 at home. 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 Dizziness 767919270 R42 I will check DDimer and CTA of chest [id number] Vangie Tello MD [facility] (Adult Med) [address] [place] [address] 03/10/2019 16:51:00 03/10/2019 18:16:54 Dyspnea on exertion 91398764 R06.09 hypoxemia. oximetry is only 75%, he refuses to go to ER. 2018. Pulmonary CAT failed to show large vessel embolism. On aspirin. Generalize d abdominal pain 184264106 R10.84 Worse pain of abdomen, previous CAT of abdomen in october 2018 reported trans colon intrarpped but no bowel obstructio n. He refuses to go to ER.. [id number] MD Celeste Michaud (Adult Med) [address] [place] [address] 04/10/2019 15:28:55 04/11/2019 12:28:48 Chronic low back pain 583009143 M54.5 He insists to have nephrology referral; Chronic di sease of skin 753666208 L98.9 He insists to see a dermatolog ist. Administra tion of influenza vaccine 78370715 Z23 He tolerated short well. [id number] MD [facility] (Adult Med) [address] [place] [address] 05/06/2019 16:29:56 05/07/2019 10:17:38 Acute respiratory infections 119368400 J22 [id number] [facility] [address] [place] [address] 06/25/2019 15:47:35 06/25/2019 17:14:35 Chronic low back pain 336291955 M54.5 He insists to have nephrology referral; but spinal vertebrae disorder, will proced CAT of lumbar spine. Hearing disorder 4200307 05 H91.90 Pt prefers to go to [facility], Cramping pain 734374350 R52 Discussed with patient. Diabetic p eripheral neuropathy 672071913 E11.40 Discussed with patient, wanting up grade dose gabapentin . Administra tion of influenza vaccine 24731886 Z23 He tolerated short well. [id number] MD Celeste Michaud (Adult Med) [address] [place] [address] 0 07/16/2019 16:43:15 07/16/2019 17:46:11 Cellulitis 959111619 L03.90 Swelling gum. [id number] MD Celeste Woodward (Adult Med) [address] [place] [address] 08/26/2019 11:47:39 08/26/2019 17:12:55 Upper respiratory infection 42393302 J06.9 [id number] Michelle Goodman MD [facility] [address] [place] [address] 08/28/2019 09:17:52 09/15/2019 13:49:10 Obstructive sleep apnea syndrome 41352483 G47.33 Patient is on treatment. AHI 24/hour, patient required BIPAp 18/8 with O2 4L/m into nasal mask. I will adjust his pressure to 20/10 with 4L/M of O2 Hypoxemia 616087787 R09. 02 Patient has 6MWT showed he needs O2 at 2L/M. Will order portable concentrat or. Patient is using O2 at home. 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 Dizziness 658403657 R42 I will check DDimer and CTA of chest [id number] MD Celeste Michaud (Adult Med) [address] [place] [address] 10/06/2019 13:55:45 10/07/2019 14:16:55 Chronic congestive heart failure 78470517 I50.9 Under the care of his cardiologi st. Diabetes mellitus 694873 09 E11.40 Metformin, regular formula, messed his GI , Diarrhea. Diabetic p eripheral neuropathy 917320757 E11.40 Discussed with patient, wanting up grade dose gabapentin . Dyslipidem ia due to type 2 diabetes mellitus 3654083093 02 E78.5 On low saturated fat diet, Moderate p ersistent asthma 973812568 J45.40 Has been stabilized with medication s. Tinea corporis 28582629 B35.4 Well maintained with powder. Generalize d osteoarthritis 476757333 M15.9 Wanting to refill the medication s. [id number] MD Celeste Michaud (Adult Med) [address] [place] [address] 10/13/2019 09:37:54 10/14/2019 13:40:05 Hypokalemia 88176937 E87.6 Discussed with patient, will have blood potassium tested and refills of his potassium today. [id number] MD Celeste Michaud (Adult Med) [address] [place] [address] 0 10/06/2020 12:32:53 10/07/2020 15:31:55 Chronic congestive heart failure 19432111 I50.9 Under the care of his cardiologi st. Diabetes mellitus 025547 E11.40 Metformin, regular formula, messed his GI , Diarrhea. Chronic ob structive pulmonary disease 24510994 J44.9 History of partial lung collapsed, needs inhaler to breathe. Second hand smoker in the past. Wanting Alph-1 antitryp sin screening. [id number] Vangie Tello MD [facility] (Adult Med) [address] [place] [address] 0 10/11/2020 09:44:00 10/12/2020 10:42:19 Chronic congestive heart failure 34687928 I50.9 Under the care of his cardiologi st. Diabetes mellitus 107014 E11.40 Metformin, regular formula, messed his GI , Diarrhea. Chronic ob structive pulmonary disease 62138009 J44.9 History of partial lung collapsed, needs inhaler to breathe. Second hand smoker in the past. Wanting Alph-1 antitryp sin screening. Diabetic p eripheral neuropathy 685048512 E11.40 Discussed with patient, wanting up grade dose gabapentin . Dyslipidem ia due to type 2 diabetes mellitus 3306328883 02 E78.5 On low saturated fat diet, [id number] Vangie Tello MD [facility] (Adult Med) [address] [place] [address] 0 11/03/2020 12:18:43 11/04/2020 11:30:52 Chronic kidney disease stage 2 574443775 N18.2 Will order U/S of kidney and CMP to [facility] Chronic co ngestive heart failure 93576487 I50.9 Under the care of his cardiologi st. Diabetes mellitus 269771 E11.40 Metformin, regular formula, messed his GI , Diarrhea. Refilled glimepirid e 4 mg 2 pills bid, ordered yesterday. Diabetic p eripheral neuropathy 876497379 E11.40 Discussed with patient, wanting up grade dose gabapentin . [id number] Michelle Goodman MD [facility] [address] [place] [address] 11/04/2020 11:44:29 11/04/2020 13:54:33 Moderate persistent asthma 135498634 J45.40 He uses Ventolin HFA but having significan t SOB., I will continue incruse ellipta and add Symbicort 160/4.5, I will recheck PFTs Restrictiv e lung disease 69230591 J98.4 FEV1 36%, FVC 32%, FEV1/FVC 87%, [...] since there is a narrow neck. Hypoxemia 815190966 R09. 02 Patient has 6MWT showed he needs O2 at 2L/M. Will order portable concentrat or. Patient is using O2 at home. I will check D dimer., homocystin e, I will check 6MWT Obstructiv e sleep apnea syndrome 43017731 G47.33 Patient is on treatment. AHI 24/hour, patient required BIPAp 18/8 with O2 4L/m into nasal mask. I will adjust his pressure to 20/10 with 4L/M of O2. He's feling the pressure is not enough, I will increase to 22/11 and geta download Morbid obesity 970978458 E66.01 Advised about diet and exercise for weight reduction Tolerant non-smoker 8755 9003 Z87.891 Patient has second hand smoking Dyspnea on exertion 6084 5006 R06.09 Multifacto rial Diabetic p eripheral neuropathy 268249156 E11.40 On Gabapentin Periodic l imb movement disorder 773491988 G47.61 On gabapentin - will increase dose to 400mg X3 Dizziness 749447880 R42 DDimer was negative and CTA negative Non-smoker 's second hand smoke syndrome 078839154 J98.4 [id number] [facility] [address] [place] [address] 11/11/2020 09:41:14 11/12/2020 11:24:45 Chest wall pain 463345125 R07.89 Etiology is unclear, I will check CTA Moderate p ersistent asthma 375116102 J45.40 He uses Ventolin HFA but having significan t SOB., I will continue incruse ellipta and add Symbicort 160/4.5, I will recheck PFTs Tolerant non-smoker 8773 9003 Z87.891 Patient has second hand smoking Obstructiv e sleep apnea syndrome 74469181 G47.33 Patient is on treatment. AHI 24/hour, patient required BIPAp 18/8 with O2 4L/m into nasal mask. I will adjust his pressure to 20/10 with 4L/M of O2. He's feling the pressure is not enough, I will increase to 22/11 and get a download and give the patient supplies Restrictiv e lung disease 71299585 J98.4 FEV1 36%, FVC 32%, FEV1/FVC 87%, [...] there is a narrow neck. Morbid obesity 403380623 E66.01 Advised about diet and exercise for weight reduction Hypoxemia 033435039 R09. 02 Patient has 6MWT showed he needs O2 at 2L/M. Will order portable concentrat or. Patient is using O2 at home. I will check D dimer., homocystin e, I will check 6MWT Dyspnea on exertion 6084 5006 R06.09 Multifacto rial Diabetic p eripheral neuropathy 922351703 E11.40 On Gabapentin Periodic l imb movement disorder 538119477 G47.61 On gabapentin - will increase dose to 400mg X3 Dizziness 223964638 R42 DDimer was negative and CTA negative [id number] MD Celeste Michaud (Adult Med) [address] [place] [address] 0 06/03/2021 15:42:21 06/06/2021 13:11:47 Acute laryngitis 7846351 J04.0 Likes z pack. he said. Erectile dysfunction 860 197052 F52.21 Wants to try viagra. Advised him to consult his cardiologi st as well. He agreed. Pityriasis versicolor 56 042471 B36.0 Will try topical cream and dermatolog y referral. [id number] MD Celeste Michaud (Adult Med) [address] [place] [address] 0 07/07/2021 11:40:36 07/25/2021 12:36:26 Chronic congestive heart failure 34095934 I50.9 Under the care of his cardiologi st. Diabetes mellitus 518657 09 E11.40 Metformin, regular formula, messed his GI , Diarrhea. Refilled glimepirid e 4 mg 2 pills bid, ordered yesterday. Dyslipidem ia due to type 2 diabetes mellitus 7459502096 02 E78.5 On low saturated fat diet, Erectile dysfunction 860 563955 F52.21 Wants to try viagra. Advised him to consult his cardiologi st as well. He agreed., he siad his cardiologi st agreed, now he wants up dose. Pityriasis versicolor 56 463662 B36.0 Will try topical cream and dermatolog y referral. ! % terbinafin e not working he said , he used to try kanolotion Diabetic p eripheral neuropathy 102549558 E11.40 Discussed with patient, wanting up grade dose gabapentin . Type 2 janusz betes mellitus 98860719 E11.40 He can not tolerate the metformin which cause his stomach to be uncomforta ble, diarrhea and cramping. Chronic ob structive pulmonary disease 29836530 J44.9 History of partial lung collapsed, needs inhaler to breathe. Second hand smoker in the past. Wanting Alph-1 antitryp sin screening. Generalize d osteoarthritis 800963963 M15.9 Wanting to refill the medication s. Acid reflux 181380875 K2 1.9 Stable. Screening for malignant neoplasm of colon 454097959 Z12.11 He wants stool test. [id number] Vangie Tello MD [facility] (Adult Med) [address] [place] [address] 08/05/2021 12:24:37 08/08/2021 09:17:47 Secondary erectile dysfunction 420560826 N52.39 He wants change viagra from 10/month 100 mg to 50 mg with 20 pills/georges h. Chronic co ngestive heart failure 53298691 I50.9 Under the care of his cardiologi st. Diabetes mellitus 388727 09 E11.40 Metformin, regular formula, messed his GI , Diarrhea. Refilled glimepirid e 4 mg 2 pills bid, ordered yesterday. Acid reflux 344125697 K2 1.9 Stable. Chronic ob structive pulmonary disease 48939051 J44.9 History of partial lung collapsed, needs inhaler to breathe. Second hand smoker in the past. Wanting Alph-1 antitryp sin screening. He agreed to D/C symbicort which has steroid . 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 Diabetic p eripheral neuropathy 790058772 E11.40 Discussed with patient, wanting up grade dose gabapentin . Type 2 janusz betes mellitus 00170337 E11.40 He can not tolerate the metformin which cause his stomach to be uncomforta ble, diarrhea and cramping. Dyslipidem ia due to type 2 diabetes mellitus 2845674260 02 E78.5 On low saturated fat diet, Generalize d osteoarthritis 933014788 M15.9 Wanting to refill the medication s. [id number] Vangie Tello MD [facility] (Adult Med) [address] [place] [address] 0 08/31/2021 12:02:59 09/01/2021 12:34:40 Chronic congestive heart failure 91817775 I50.9 Under the care of his cardiologi st., On sxoiaj4uir e, needs potassium supplement . Tinea corporis 54376138 B35.4 Well maintained with powder. Erectile dysfunction 860 556402 F52.21 Wants to try viagra. Advised him to consult his cardiologi st as well. He agreed., he siad his cardiologi st agreed, now he wants up dose. Secondary erectile dysfunction 960162212 N52.39 He wants change viagra from 10/month 100 mg to 50 mg with 20 pills/georges h. Diabetes mellitus 961004 09 E11.40 Metformin, regular formula, messed his GI , Diarrhea. Refilled glimepirid e 4 mg 2 pills bid, ordered yesterday. Acid reflux 689070580 K2 1.9 Stable. Chronic ob structive pulmonary disease 51256181 J44.9 History of partial lung collapsed, needs inhaler to breathe. Second hand smoker in the past. Wanting Alph-1 antitryp sin screening. He agreed to D/C symbicort which has steroid . 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 Diabetic p eripheral neuropathy 116769624 E11.40 Discussed with patient, wanting up grade dose gabapentin . Type 2 janusz betes mellitus 30079674 E11.40 He can not tolerate the metformin which cause his stomach to be uncomforta ble, diarrhea and cramping. Dyslipidem ia due to type 2 diabetes mellitus 9680365427 02 E78.5 On low saturated fat diet, Generalize d osteoarthritis 126385915 M15.9 Wanting to refill the medication s. Pityriasis versicolor 56 330875 B36.0 Will try topical cream and dermatolog y referral. ! % terbinafin e not working he said , he used to try kanolotion , Still waiting the appointmen t of dermatolog y at [facility], he wants to find sooner and close dermatolog ist instead, advised to check with his insurance the lists of dermatolog ist in the [facility] work, then will try to refer, he agreed. 08-31-2021 . [id number] Vangie Tello MD [facility] (Adult Med) [address] [place] [address] 10/07/2021 12:33:21 10/11/2021 07:41:46 Erectile dysfunction 292022964 F52.21 Wants to try viagra. Advised him to consult his cardiologi st as well. He agreed., he siad his cardiologi st agreed, now he wants up dose. Infection of skin and/or subcutaneous tissue 59707530 L08.9 He wants cream and bactrim for his skin over count of bacteria since his young. Chronic co ngestive heart failure 69759846 I50.9 Under the care of his cardiologi st., On wjqmuq7aiw e, needs potassium supplement . Diabetes mellitus 472142 09 E11.40 Metformin, regular formula, messed his GI , Diarrhea. Refilled glimepirid e 4 mg 2 pills bid, ordered yesterday. Chronic ob structive pulmonary disease 43340239 J44.9 History of partial lung collapsed, needs inhaler to breathe. Second hand smoker in the past. Wanting Alph-1 antitryp sin screening. He agreed to D/C symbicort which has steroid . 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 Generalize d osteoarthritis 290476187 M15.9 Wanting to refill the medication s. Acid reflux 648772685 K2 1.9 Stable. Diabetic p eripheral neuropathy 004367768 E11.40 Discussed with patient, wanting up grade dose gabapentin . Dyslipidem ia due to type 2 diabetes mellitus 0326683742 02 E78.5 On low saturated fat diet, [id number] JALEN ABARCA (Peds) [address] [place] [address] 01/16/2022 15:33:00 01/17/2022 12:11:00 Administration of SARS-CoV-2 mRNA vaccine 0921799764 Z23 [id number] MD Celeste Michaud (Adult Med) [address] [place] [address] 0 01/16/2022 16:03:23 01/19/2022 10:53:06 Screening for malignant neoplasm of prostate 994167847 Z12.5 He agreed. Screening for malignant neoplasm of colon 622666138 Z12.11 He wants stool test. He has not turned in the test yet he said, Type 2 janusz betes mellitus 96273366 E11.40 He can not tolerate the metformin which cause his stomach to be uncomforta ble, diarrhea and cramping. HIV screening 558270833 Z11.4 He agreed to be tested. Cramping pain 973810988 R52 Discussed with patient. On diuretic , might have low magnesium , will check. Exposure t o Hepatitis B virus 735266441 Z20.5 Will check the hepatitis B. Secondary erectile dysfunction 998359577 N52.39 He wants change viagra from 10/month 100 mg to 50 mg with 20 pills/georges h. Obesity 051791420 E66.9 Advised to watch his diabetic diet, exercise and lose some weight, 12-27-2021. [id number] MD Celeste Michaud (Adult Med) [address] [place] [address] 06/21/2022 15:38:22 06/22/2022 15:47:33 Thoracic back pain 798981441 M54.6 He wants chiropract or referral. He will see his cardiologi st on the end of this month. Wants some tylenol with codeine or hydrocodon . Eruption 921736625 R21 Skin keeps break out, cream not helping. wants dermatolog y referral. Diabetes mellitus 209800 09 E11.40 Metformin, regular formula, messed his GI , Diarrhea. Refilled glimepirid e 4 mg 2 pills bid, ordered yesterday. Screening for malignant neoplasm of colon 629845607 Z12.11 He wants stool test. He has not turned in the test yet he said, it , will reorder. Erectile dysfunction 860 454596 F52.21 Wants to try viagra. Advised him to consult his cardiologi st as well. He agreed., he siad his cardiologi st agreed, now he wants up dose. Dyslipidem ia due to type 2 diabetes mellitus 8217119882 02 E78.5 On low saturated fat diet, Congestive heart failure 78508550 I50.9 Under the care of his cardiologi st. [id number] Vangie Tello MD [facility] (Adult Med) [facility] [place] [address] 02/07/2023 17:11:12 02/09/2023 15:31:07 Type 2 diabetes mellitus 86191504 E11.40 He can not tolerate the metformin which cause his stomach to be uncomforta ble, diarrhea and cramping. Went thru med lists. needs potassium and magnesium, and up grate dose of pioglitazo ne . Chronic co ngestive heart failure 11678478 I50.9 Under the care of his cardiologi st., On colxaf3wyp e, needs potassium supplement . Diabetic p eripheral neuropathy 221125380 E11.40 Discussed with patient, wanting up grade dose gabapentin . Eruption 929600950 R21 Skin keeps break out, cream not helping. wants dermatolog y referral. Diabetes mellitus 961379 09 E11.40 Metformin, regular formula, messed his GI , Diarrhea. Refilled glimepirid e 4 mg 2 pills bid, ordered yesterday. Wants increase dose of pioglitazo ne. Screening for malignant neoplasm of colon 373447013 Z12.11 He wants stool test. He has not turned in the test yet he said, it , will reorder. He had it sitting his home for months. Re instructed to proceed the test. he said that he will do it. today [id number]. Erectile dysfunction 860 960533 F52.21 Wants to try viagra. Advised him to consult his cardiologi st as well. He agreed., he siad his cardiologi st agreed, now he wants up dose. Dyslipidem ia due to type 2 diabetes mellitus 3695921901 02 E78.5 On low saturated fat diet, Congestive heart failure 94304722 I50.9 Under the care of his cardiologi st. Acid reflux 068108332 K2 1.9 Stable. Chronic ob structive pulmonary disease 27650971 J44.9 History of partial lung collapsed, needs inhaler to breathe. Second hand smoker in the past. Wanting Alph-1 antitryp sin screening. He agreed to D/C symbicort which has steroid . 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 Cramping pain 256060936 R52 Discussed with patient. On diuretic , might have low magnesium , will check. Infection of skin and/or subcutaneous tissue [id number] L08.9 He wants cream and bactrim for his skin over count of bacteria since his young. Allergic r eaction to bee sting [id number] T63.444A Will refill epinephrin e injection. Chronic th oracic back pain [id number] 25718 M54.6 Med refills. Obesity 569029953 E66.9 Advised to watch his diabetic diet, exercise and lose some weight, 12-27-2021. BMI is 38.7 as 02-07-23. [id number] Vangie Tello MD [facility] (Adult Med) [address] [place] [address] 04/11/2023 16:11:30 04/12/2023 15:46:47 Administration of influenza vaccine [id number] Z23 He tolerated short well. Acute resp iratory infections 245455861 J22 congested sinus and throat. wants z pk Impacted c erumen in right ear [id number] 372307 H61.21 Wants [facility] to clean it. Hernia of anterior abdominal wall 407882589 K43.9 Discussed with patient, agreed for the CAT scan. Has claustroph obia, will give one ativan prior to CAT scan.He wants U to take care of . Diabetes mellitus 565089 09 E11.40 Metformin, regular formula, messed his GI , Diarrhea. Refilled glimepirid e 4 mg 2 pills bid, ordered yesterday. Wants increase dose of pioglitazo ne. Chronic co ngestive heart failure 44581848 I50.9 Under the care of his cardiologi st., On [id number] e, needs potassium supplement . Dyslipidem ia due to type 2 diabetes mellitus 4596818128 02 E78.5 On low saturated fat diet, Erectile dysfunction 860 846389 F52.21 Wants to try viagra. Advised him to consult his cardiologi st as well. He agreed., he siad his cardiologi st agreed, now he wants up dose. Cramping pain 683559806 R52 Discussed with patient. On diuretic , might have low magnesium , will check. Chronic th oracic back pain [id number] 39697 M54.6 Med refills. Diabetic p eripheral neuropathy 352250462 E11.40 Discussed with patient, wanting up grade dose gabapentin . Chronic ob structive pulmonary disease 04723319 J44.9 History of partial lung collapsed, needs inhaler to breathe. Second hand smoker in the past. Wanting Alph-1 antitryp sin screening. He agreed to D/C symbicort which has steroid . 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 [id number] Vangie Tello MD [facility] (Adult Med) [address] [place] [phone] 07/25/2023 16:36:06 07/30/2023 11:15:49 Chronic atrial fibrillation 767088038 I48.20 Will go to [facility] for new cardiologi st. Diabetes mellitus 480571 09 E11.40 Metformin, regular formula, messed his GI , Diarrhea. Refilled glimepirid e 4 mg 2 pills bid, ordered yesterday. Wants increase dose of pioglitazo ne. Chronic co ngestive heart failure 59520152 I50.9 Under the care of his cardiologi st., On [id number] e, needs potassium supplement . Chronic ob structive pulmonary disease 48199749 J44.9 History of partial lung collapsed, needs inhaler to breathe. Second hand smoker in the past. Wanting Alph-1 antitryp sin screening. He agreed to D/C symbicort which has steroid . 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 Acid reflux 278222509 K2 1.9 Stable. Diabetic p eripheral neuropathy 362215006 E11.40 Discussed with patient, wanting up grade dose gabapentin . Cramping pain 915873881 R52 Discussed with patient. On diuretic , might have low magnesium , will check. Dyslipidem ia due to type 2 diabetes mellitus 8280124860 02 E78.5 On low saturated fat diet, Erectile dysfunction 860 348838 F52.21 Wants to try viagra. Advised him to consult his cardiologi st as well. He agreed., he siad his cardiologi st agreed, now he wants up dose. Hernia of anterior abdominal wall 240399485 K43.9 Discussed with patient, agreed for the CAT scan. Has claustroph obia, will give one ativan prior to CAT scan.He wants U to take care of . [id number] Michelle Goodman MD [facility] [address] [address] 07/26/2023 11:19:15 07/26/2023 14:34:35 Moderate persistent asthma 063619167 J45.40 He uses Ventolin HFA but having significan t SOB., I will continue incruse ellipta and add Symbicort 160/4.5, I will recheck PFTs, he has been having trou ble with shortne s s o f b r e a t h . Tolerant non-smoker 8773 9003 Z87.891 Patient has second hand smoking Obstructiv e sleep apnea syndrome 09607088 G47.33 Patient is on treatment. AHI 24/hour, patient required BIPAp 18/8 with O2 4L/m into nasal mask. I will adjust his pressure to 20/10 with 4L/M of O2. He's feeling the pressure is not enough, I will get download of his CPAP. Restrictiv e lung disease 30575814 J98.4 FEV1 36%, FVC 32%, FEV1/FVC 87%, [...] there is a narrow neck. Morbid obesity 158630922 E66.01 Advised about diet and exercise for weight reduction Hypoxemia 055454417 R09. 02 Patient has 6MWT showed he needs O2 at 2L/M. Will order portable concentrat or. Patient is using O2 at home. 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 On gabapentin - will increase dose to 400mg X3 Dizziness 355447307 R42 DDimer was negative and CTA negative Health Concerns Section Related Observation LastModified by Organization Detai ls LastModified Time None Recorded Concern Status LastModified by Organization Details LastModified Time None Recorded Advance Directives Directive N: Payers Insurance Date Sequence Insurance Name Policy Number Policy Leon Covered Member ID Leon Member ID Guarantor Name 09/22/2023 1 [facility] - DOS ON OR AFTER 20 (MEDICAID REPLACEMENT - HMO) Mann Choudhury [id number] Mann Choudhury 07/25/2023 1 [facility] - DOS PRIOR TO 2020 (MEDICAID REPLACEMENT - HMO) Mann Choudhury [id number] Mann Choudhury Notes Date Note Type Note Provider Name and Address Organization Details Recorded Time 06/21/2022 text/html ROS as noted in the HPI Office visit,Allergic to glimepiride. History of type 2 DM, CHF, dyslipidemia skin eruption, upper back pain , and ED. Wants to refill med and referrals. Vangie Tello MD Attn: [employer]ing,[address] [place], [address], [facility] 06/21/2022 16:52:16 02/07/2023 text/html ROS as noted in the HPI Office visit, allergic to glimepiride, check up and blood tests and med refills. Vangie Tello MD Attn: [employer],[address] [place], [address], [facility] - [facility] 02/07/2023 18:24:23 04/11/2023 text/html ROS as noted in the HPI Office visit, allergic to glimepiride. Check up med refills. C/C1. respiratory track infection, 2. Right ear wax impacted. 3. Abdominal wall hernia getting bigger. No chest pain, some congestion of sinus, throat, want z PK. No fever, no other complaints, ROS as noted in HPI. Vangie Tello MD Attn: [facility],[address] [place], [address], [facility] 04/11/2023 17:31:19 07/25/2023 text/html ROS as noted in the HPI Office visit. allergic to glimepiride. history of type 2 DM, CHF, diabetic neuropathy, on oxygen , Check up and med refills. if any. No chest pain, no fever, no shortness of breath, regular appetite and Bowel habit. ROS as noted in HPI. Vangie Tello MD Attn: Accounting,[address] [place], [address], [facility] 07/25/2023 17:42:22 07/26/2023 text/html ROS as noted in the HPI Patient is here for follow-up. He relates to me that his BiPAP machine is not giving him enough pressure. He has been having more shortness of breath. He has been having right shoulder pain and neck pain. He has not been in the office since October of 2020 Michelle Goodman MD [address] [place], [address], [facility] 07/26/2023 12:13:57
== END 2025-04-29 14:07 | disposition home or self-care (01) ==
LOC: ANHCARD 14:07
PROVIDERS: PCP Student in an Organized Health Care Education/Training Program; Visit Provider Student in an Organized Health Care Education/Training Program
DX: R29.818 Other symptoms and signs involving the nervous system (principal); I48.91 Unspecified atrial fibrillation; R94.39 Abnormal result of other cardiovascular function study; I50.9 Heart failure, unspecified; R06.09 Other forms of dyspnea
CPT/HCPCS: 93306